=== PATIENT | male | born 1935 | race Caucasian/White ===

== ENCOUNTER 2016-04-11 14:42 | Inpatient (IN) | payer OTHER ==
[~2016-04-11] VITALS: Ht 180.3 cm; Wt 102.0 kg
[~2016-04-11 14:42] MED LIST: ACET-1256 PO; ASPI81TA28 PO; ATRINS NEB; CFT250 PO; CHOL200010 PO; CRG625 PO; CYAN10005 PO; DICL1GEL28 TOP; FINA5TAB PO; FLUT0.15 NAE; FURO-85 PO; GARL400T4 PO; GLIP-171 PO; HYDR-5688 PO; ISOS30TA3 PO; KETO2SHA TOP; LEVA1NEB19 INH; LORA0.5T12 PO; METF-384 PO; OMEG10007 PO; OXGN; PENT100C6 PO; RANI300T2 PO; SAW1CAP11 PO; SENN8.6T15 PO; SERT-234 PO; SIMV20TA2 PO; TAMS0.4C38 PO
[2016-04-11] MEDS ORDERED: SODIUM CHLORIDE 0.9% 1000ML 500 ML IV ONE (15:10)
[2016-04-11] MEDS ORDERED: AZTREONAM IV 2,000 MG in DEXTROSE 5% 100ML 100 ML IV STA (15:16)
--- NOTE | 2016-04-11 15:50 | DIAGNOSTIC IMAGING REPORT ---
CHEST ONE VIEW PORTABLE HISTORY: Sepsis COMPARISON: Chest 11/19/2015. FINDINGS: No pneumothorax. Small bilateral pleural effusions have slightly increased in size. Left-sided pacemaker is again noted. Bibasilar linear densities persist and suggest subsegmental atelectasis. No evidence for pulmonary edema. The heart remains mildly enlarged. No significant change in the 1.5 cm right midlung zone nodule. No new focal lung consolidations. IMPRESSION: 1. Small bilateral pleural effusions have slightly increased in size. 2. Bilateral lower lung zone linear densities persist and favor subsegmental atelectasis or scarring. 3. No significant change in the 1.5 cm right midlung zone nodule. Electronically signed by: Dennis Taveras M.D. 04/11/2016 3:48 PM
[2016-04-11 16:01] LABS: BASO % 0.3 %; BASO ABS # 0.02 K/uL (0-0.2); COMPLETE YES; EOS % 1.4 %; HEMATOCRIT 38.7 % (42-52); IG% 0.3 %; LYMPH % 18.1 %; LYMPH ABS # 1.29 K/uL (1.2-3.4); MEAN CELL VOLUME 91.7 fL (80-100); MEAN CORPUSCULAR HEMOGLOBIN 28.9 pg (25-34); MEAN CORPUSCULAR HGB CONC 31.5 g/dl (32-36); MEAN PLATELET VOLUME 9.4 fL (7.4-10.4); MONO % 9.7 %; NEUT % 70.2 %; PLATELET COUNT 210 K/uL (130-400); RED BLOOD COUNT 4.22 M/uL (4.7-6.1); WHITE BLOOD COUNT 7.13 K/uL (4.8-10.8)
[2016-04-11] MEDS ORDERED: PRS5 PO (16:25)
[2016-04-11] MEDS ORDERED: OMEP20CA9 PO (16:25)
[2016-04-11] MEDS ORDERED: SIMV-151 PO (16:25)
[2016-04-11] MEDS ORDERED: ZLF/100 PO (16:25)
[2016-04-11] MEDS ORDERED: SENNTAB PO (16:25)
[2016-04-11] MEDS ORDERED: ISOS-11 PO (16:25)
[2016-04-11] MEDS ORDERED: CIPR250T3 PO (16:25)
[2016-04-11] MEDS ORDERED: FLM4 PO (16:25)
[2016-04-11] MEDS ORDERED: ATV5X PO (16:25)
[2016-04-11] MEDS ORDERED: CARV6.252 PO (16:38)
[2016-04-11 16:48] LABS: PROTHROMBIN TIME (PATIENT) 10.9 SECONDS (9.0-12.0)
[2016-04-11 16:53] LABS: ALT/SGPT 15 U/L (12-78); BLOOD UREA NITROGEN 16 mg/dl (7-18); BUN/CREATININE RATIO 10.9 (10-20); CALCIUM 8.5 mg/dl (8.5-10.1); CARBON DIOXIDE 30 mmol/L (21-32); CHLORIDE 105 mmol/L (98-107); GLUCOSE 168 mg/dl (70-99); MAGNESIUM 1.7 mg/dl (1.8-2.4); SODIUM 143 mmol/L (136-145)
[2016-04-11 17:03] LABS: ALB/GLOB RATIO 0.9 (0.9-2); ALKALINE PHOSPHATASE 79 U/L (45-117); AST/SGOT 14 U/L (15-37)
[2016-04-11 17:09] LABS: URINE APPEARANCE TURBID (CLEAR); URINE BILIRUBIN NEG (NEG); URINE COLOR YELLOW; URINE EPITHELIAL CELL AUTO >30 /lpf (0-5); URINE NITRITE NEG (NEG); URINE SPECIFIC GRAVITY 1.017 (1.000-1.030); UROBILINOGEN NEG (NEG); ZZURINE CULT IF INDIC CATH YES
[2016-04-11 17:13] LABS: MANUAL MICROSCOPIC REQUIRED? NO; REVIEW REQ? YES
--- NOTE | 2016-04-11 18:12 | DIAGNOSTIC IMAGING REPORT ---
CT OF THE HEAD WITHOUT CONTRAST CLINICAL HISTORY: Confusion. COMPARISON STUDY: Head CT November 19, 2015. CT DOSE: 1474.24 mGy.cm TECHNIQUE: Helical axial images of the head were obtained without IV contrast. Automated exposure control was utilized for the study. FINDINGS: No acute intracranial hemorrhage, midline shift or mass effect is present. Ventricular system is normal. The basilar cisterns are patent. There are no extra-axial collections. Tong-white differentiation is maintained. There are no findings to suggest acute dural sinus thrombosis or acute territorial infarct. There are a small amount of secretions within the right maxillary sinus. There are no significant calvarial abnormalities. There are postsurgical findings within the sinuses. IMPRESSION: No acute intracranial findings. Electronically signed by: Krishan Aguila M.D. 04/11/2016 6:10 PM
--- NOTE | 2016-04-11 18:22 | DIAGNOSTIC IMAGING REPORT ---
CT OF THE ABDOMEN AND PELVIS WITHOUT CONTRAST, STONE PROTOCOL CLINICAL HISTORY: Bilateral flank pain. Hematuria. Urinary tract infection. COMPARISON STUDY: CT of the abdomen and pelvis October 28, 2015. TECHNIQUE: Helical axial images of the abdomen and pelvis were obtained without IV or oral contrast according to renal stone protocol. FINDINGS: Visualized portions of the lower chest demonstrate small bilateral pleural effusions with associated opacities which favor atelectasis. Pacer leads and cardiomegaly are noted. There is no pneumatosis, free air or portal venous gas. Note is made of several left renal calculi that measure up to 6 mm. A 5 mm calculus within lower pole of the right kidney is noted. There are no ureteral calculi. There is mild bilateral perinephric infiltration as well as infiltration within each renal sinus, greater on the left. There is bilateral urothelial thickening which has been shown on prior exams. There is mild dilatation of both ureters and mild left pelvicaliectasis. Moderate wall thickening of the bladder is noted with adjacent infiltration. The bladder suboptimally assessed due to underdistention. Unenhanced images of liver, spleen, adrenal glands and pancreas are normal. The gallbladder surgically absent. There is no evidence for a bowel obstruction. There is sigmoid diverticulosis without evidence for acute diverticulitis. No suspicious osseous lesions are identified within visualized skeletal structures. IMPRESSION: 1. Bilateral nephrolithiasis. No ureteral calculi. Mild dilatation of both ureters and mild left pelvicaliectasis. Bilateral urothelial thickening. The hyperdensity within the collecting systems, left greater than right, could reflect urothelial thickening or a small amount of hemorrhage. These findings are nonspecific and could reflect infection, recently passed stone or an underlying urothelial malignancy. Correlation with urinalysis and urine cytology as well as urologic consultation is recommended although similar findings have been shown on prior exams. 2. Persistent bladder wall thickening adjacent infiltration which has been shown on prior exams. The findings favor cystitis. 3. Small bilateral pleural effusion with associated atelectasis. Electronically signed by: Krishan Aguila M.D. 04/11/2016 6:21 PM
[2016-04-11] MEDS ORDERED: POTA-74 PO (18:30)
[2016-04-11] MEDS ORDERED: ASCO-63 PO (18:30)
[2016-04-11] MEDS ORDERED: ATRINSX NEB (18:30)
--- NOTE | 2016-04-11 18:56 | EMERGENCY ROOM VISIT NOTE ---
History Report prepared by Britt: Genoveva Eng Under the Supervision of: Dr. Anand Baez M.D. First contact with patient: 15:05 Chief Complaint: URINARY SYMPTOMS Stated Complaint: CONFUSION/AMS/WEAKNESS History of Present Illness The patient is a 81 year old male who presents to the Emergency Room via ALS with complaints on persistent AMS starting earlier today. The patient states that he has been recently treated for a urinary infection and has been taking Cipro but he has still been experiencing burning with urination. Then today he started to experience some confusion. The patient denies any fever, vomiting or unilateral weakness of the legs and arms. He states he is also having trouble swallowing and he has a sore throat. The patient states that he has some chest pain occasionally. He states that at night he does wears oxygen. He states that he fell and explains it as he "went out of this planet" and he just fell down. He states from the fall he landed on his back. The patient states he has a history of kidney stones. Source of History: patient History Limited By: AMS Onset: earlier today [employer]ULT [employer] Position: other (global ) Timing: other (persistent ) Associated Symptoms: + sorethroat, + urinary symptoms (burning), + weakness (arms and legs ), No fevers, No vomiting Note: Associated symptoms: trouble swallowing, recent fall Review of Systems See HPI for pertinent positives & negatives. A total of 10 systems reviewed and were otherwise negative. Past Medical & Surgical Medical Problems: (1) Basal cell carcinoma (2) BPH (benign prostatic hyperplasia) (3) CAD (coronary artery disease) (4) Chronic systolic (congestive) heart failure (5) Confusion (6) COPD, severe (7) Depression (8) Diabetes mellitus (9) Dyslipidemia (10) Esophageal stricture (11) GERD (gastroesophageal reflux disease) (12) High degree atrioventricular block (13) Ischemic cardiomyopathy (14) DENISHA (obstructive sleep apnea) (15) Renal artery stenosis (16) UTI (urinary tract infection) Surgical Problems: (1) H/O hand surgery (2) S/P cataract surgery (3) S/P cholecystectomy (4) S/P sinus surgery (5) Status post total knee replacement, right Family History Omitted secondary to age Social History Smoking Status: Former Smoker Alcohol Use: none Marital Status: Housing Status: lives with significant other Occupation Status: retired Current/Historical Medications Scheduled Ascorbic Acid (Vitamin C), 500 MG PO DAILY Aspirin (Aspirin Ec), 81 MG PO DAILY Carvedilol (Coreg), 6.25 MG PO BID Cholecalciferol (Vitamin D), 2,000 INTER.UNIT PO DAILY Ciprofloxacin (Cipro), 250 MG PO Q12 Cyanocobalamin (Vitamin B-12), 1,000 MCG PO DAILY Finasteride (Finasteride), 5 MG PO DAILY Fish Oil ([place]-3), 1 CAP PO BID Glipizide Xl (Glucotrol Xl), 5 MG PO QAM Isosorbide Mononitrate (Isosorbide Mononitrate ER), 30 MG PO QAM Metformin Hcl (Glucophage), 1,000 MG PO BID Omeprazole (Prilosec), 20 MG PO DAILY Oxygen (Oxygen), 2 LITERS NA UD Pentosan Polysulfate Sodium ([place]), 100 MG PO AC [place] ([place] Repens) ([place]), 1,000 MG PO BID Sennosides-Docusate Sodium (Qc Stool Softener Plus [place]), 2 TABS PO HS Sertraline HCl (Sertraline HCl), 100 MG PO HS Simvastatin (Simvastatin), 20 MG PO HS Tamsulosin HCl (Tamsulosin HCl), 0.4 MG PO HS Scheduled PRN Fexofenadine Hcl (Randa), 180 MG PO DAILY PRN for Allergy Symptoms Fluticasone Propionate (Nasal) (Flonase Allergy Relief), 2 SPRAYS [place] DAILY PRN for Allergy Symptoms Furosemide (Lasix), 20 MG PO DAILY PRN for Fluid Accumulation/Weight Gain Ipratropium [place] (Atrovent 0.02% Soln), 2.5 ML NEB QID PRN for Shortness of Breath Levalbuterol (Levalbuterol HCl), 1 VIAL INH TID PRN for Shortness of Breath Lorazepam (Lorazepam), 0.5 MG PO HS PRN for Anxiety/Insomnia Potassium Chloride (Potassium Chloride Er), 10 MEQ PO DAILY PRN for When Taking Lasix Allergies Coded Allergies: Penicillins (Verified Allergy, Mild, RASH, 11/19/15) Clindamycin (Verified Allergy, Unknown, UNKNOWN, 11/19/15) Morphine (Verified Adverse Reaction, Intermediate, mental status change, ) Oxycodone (Verified Adverse Reaction, Mild, CONFUSION, 11/19/15) Physical Exam Vital Signs Date Time Temp Pulse Resp B/P Pulse Ox O2 Delivery O2 Flow Rate FiO2 04/11/16 19:04 81 18 160/78 92 Room Air 04/11/16 17:12 81 18 157/80 94 Nasal Cannula 3.0 04/11/16 16:36 96 Nasal Cannula 04/11/16 14:51 36.7 97 20 145/69 96 Nasal Cannula 3.0 Physical Exam GENERAL: Patient is in no acute distress. HEENT: No acute trauma, normocephalic atraumatic, mucous membranes dry, no nasal congestion, no scleral icterus. NECK: No stridor, no adenopathy, no meningismus, trachea is midline. LUNGS: Diminished breath sounds bilaterally with bilateral rhonchi, no wheezing. HEART: Without murmurs gallops or rubs, regular rate and rhythm. ABDOMEN: Soft, nontender, bowel sounds positive, no hernias, no peritonitis. EXTREMITIES: No cyanosis, mild bilateral pedal edema, full range of motion of all the joints without pain or difficulty, no signs for acute trauma. NEUROLOGIC: Oriented x 3, no acute motor or sensory deficits, no focal weakness. SKIN: No rash, no jaundice, no diaphoresis. GROIN: Uncircumcised, no penile or scrotal cellulitis. Medical Decision & Procedures ER Provider Diagnostic Interpretation: X-ray results as stated below per interpretation by me and the radiologist: CHEST ONE VIEW PORTABLE HISTORY: Sepsis COMPARISON: Chest 11/19/2015. FINDINGS: No pneumothorax. Small bilateral pleural effusions have slightly increased in size. Left-sided pacemaker is again noted. Bibasilar linear densities persist and suggest subsegmental atelectasis. No evidence for pulmonary edema. The heart remains mildly enlarged. No significant change in the 1.5 cm right midlung zone nodule. No new focal lung consolidations. IMPRESSION: 1. Small bilateral pleural effusions have slightly increased in size. 2. Bilateral lower lung zone linear densities persist and favor subsegmental atelectasis or scarring. 3. No significant change in the 1.5 cm right midlung zone nodule. Electronically signed by: Dennis Taveras M.D. 04/11/2016 3:[address] results as stated below per my review and radiologist interpretation: CT OF THE ABDOMEN AND PELVIS WITHOUT CONTRAST, STONE PROTOCOL CLINICAL HISTORY: Bilateral flank pain. Hematuria. Urinary tract infection. COMPARISON STUDY: CT of the abdomen and pelvis October 28, 2015. TECHNIQUE: Helical axial images of the abdomen and pelvis were obtained without IV or oral contrast according to renal stone protocol. FINDINGS: Visualized portions of the lower chest demonstrate small bilateral pleural effusions with associated opacities which favor atelectasis. Pacer leads and cardiomegaly are noted. There is no pneumatosis, free air or portal venous gas. Note is made of several left renal calculi that measure up to 6 mm. A 5 mm calculus within lower pole of the right kidney is noted. There are no ureteral calculi. There is mild bilateral perinephric infiltration as well as infiltration within each renal sinus, greater on the left. There is bilateral urothelial thickening which has been shown on prior exams. There is mild dilatation of both ureters and mild left pelvicaliectasis. Moderate wall thickening of the bladder is noted with adjacent infiltration. The bladder suboptimally assessed due to underdistention. Unenhanced images of liver, spleen, adrenal glands and pancreas are normal. The gallbladder surgically absent. There is no evidence for a bowel obstruction. There is sigmoid diverticulosis without evidence for acute diverticulitis. No suspicious osseous lesions are identified within visualized skeletal structures. IMPRESSION: 1. Bilateral nephrolithiasis. No ureteral calculi. Mild dilatation of both ureters and mild left pelvicaliectasis. Bilateral urothelial thickening. The hyperdensity within the collecting systems, left greater than right, could reflect urothelial thickening or a small amount of hemorrhage. These findings are nonspecific and could reflect infection, recently passed stone or an underlying urothelial malignancy. Correlation with urinalysis and urine cytology as well as urologic consultation is recommended although similar findings have been shown on prior exams. 2. Persistent bladder wall thickening adjacent infiltration which has been shown on prior exams. The findings favor cystitis. 3. Small bilateral pleural effusion with associated atelectasis. Electronically signed by: Krishan Aguila M.D. 04/11/2016 6:[address] OF THE HEAD WITHOUT CONTRAST CLINICAL HISTORY: Confusion. COMPARISON STUDY: Head CT November 19, 2015. CT DOSE: 1474.24 mGy.cm TECHNIQUE: Helical axial images of the head were obtained without IV contrast. Automated exposure control was utilized for the study. FINDINGS: No acute intracranial hemorrhage, midline shift or mass effect is present. Ventricular system is normal. The basilar cisterns are patent. There are no extra-axial collections. Tong-white differentiation is maintained. There are no findings to suggest acute dural sinus thrombosis or acute territorial infarct. There are a small amount of secretions within the right maxillary sinus. There are no significant calvarial abnormalities. There are postsurgical findings within the sinuses. IMPRESSION: No acute intracranial findings. Electronically signed by: Krishan Aguila M.D. 04/11/2016 6:10 PM Laboratory Results 04/11/16 15:48 Red Blood Count 4.22, Mean Corpuscular Volume 91.7, Mean Corpuscular Hemoglobin 28.9, Mean Corpuscular Hemoglobin Concent 31.5, Mean Platelet Volume 9.4, Neutrophils (%) (Auto) 70.2, Lymphocytes (%) (Auto) 18.1, Monocytes (%) (Auto) 9.7, Eosinophils (%) (Auto) 1.4, Basophils (%) (Auto) 0.3, Neutrophils # (Auto) 5.01, Lymphocytes # (Auto) 1.29, Monocytes # (Auto) 0.69, Eosinophils # (Auto) 0.10, Basophils # (Auto) 0.02 04/11/16 16:12 Test 04/11/16 15:48 04/11/16 16:12 04/11/16 16:20 04/11/16 16:45 White Blood Count 7.13 K/uL (4.8-10.8) Red Blood Count 4.22 M/uL (4.7-6.1) Hemoglobin 12.2 g/dL (14.0-18.0) Hematocrit 38.7 % (42-52) Mean Corpuscular Volume 91.7 fL (80-100) Mean Corpuscular Hemoglobin 28.9 pg (25-34) Mean Corpuscular Hemoglobin Concent 31.5 g/dl (32-36) Platelet Count 210 K/uL (130-400) Mean Platelet Volume 9.4 fL (7.4-10.4) Neutrophils (%) (Auto) 70.2 % Lymphocytes (%) (Auto) 18.1 % Monocytes (%) (Auto) 9.7 % Eosinophils (%) (Auto) 1.4 % Basophils (%) (Auto) 0.3 % Neutrophils # (Auto) 5.01 K/uL (1.4-6.5) Lymphocytes # (Auto) 1.29 K/uL (1.2-3.4) Monocytes # (Auto) 0.69 K/uL (0.11-0.59) Eosinophils # (Auto) 0.10 K/uL (0-0.5) Basophils # (Auto) 0.02 K/uL (0-0.2) RDW Standard Deviation 45.9 fL (36.4-46.3) RDW Coefficient of Variation 13.7 % (11.5-14.5) Immature Granulocyte % (Auto) 0.3 % Immature Granulocyte # (Auto) 0.02 K/uL (0.00-0.02) Prothrombin Time 10.9 SECONDS (9.0-12.0) Prothromb Time International Ratio 1.0 (0.9-1.1) Activated Partial Thromboplast Time 26.8 SECONDS (21.0-31.0) Partial Thromboplastin Ratio 1.0 Anion Gap 8.0 mmol/L (3-11) Est Creatinine Clear Calc Drug Dose 46.4 ml/min Estimated GFR () 49.5 Estimated GFR (Non- 42.7 BUN/Creatinine Ratio 10.9 (10-20) Calcium Level 8.5 mg/dl (8.5-10.1) Magnesium Level 1.7 mg/dl (1.8-2.4) Total Bilirubin 0.2 mg/dl (0.2-1) Aspartate Amino Transf (AST/SGOT) 14 U/L (15-37) Alanine Aminotransferase (ALT/SGPT) 15 U/L (12-78) Alkaline Phosphatase 79 U/L (45-117) Ammonia 32.0 umol/L (11-32) Troponin I < 0.015 ng/ml (0-0.045) Total Protein 6.6 gm/dl (6.4-8.2) Albumin 3.1 gm/dl (3.4-5.0) Globulin 3.5 gm/dl (2.5-4.0) Albumin/Globulin Ratio 0.9 (0.9-2) Thyroid Stimulating Hormone (TSH) 1.740 uIu/ml (0.300-4.500) Bedside Lactic Acid Venous 1.55 mmol/L (0.90-1.70) Urine Color YELLOW Urine Appearance TURBID (CLEAR) Urine pH 6.0 (4.5-7.5) Urine Specific [place] 1.017 (1.000-1.030) Urine Protein 3+ (NEG) Urine Glucose (UA) NEG (NEG) Urine Ketones NEG (NEG) Urine Occult Blood 2+ (NEG) Urine Nitrite NEG (NEG) Urine Bilirubin NEG (NEG) Urine Urobilinogen NEG (NEG) Urine Leukocyte Esterase LARGE (NEG) Urine WBC (Auto) >30 /hpf (0-5) Urine RBC (Auto) 10-30 /hpf (0-4) Urine Hyaline Casts (Auto) 5-10 /lpf (0-5) Urine Epithelial Cells (Auto) >30 /lpf (0-5) Urine Bacteria (Auto) NEG (NEG) Urine Pathogenic Casts /lpf (0) Urine Yeast (Auto) (NONE PRSENT) Laboratory results reviewed by me. Medications Administered Medications (Trade) Dose Ordered Sig/Tonia Route Start Time Stop Time Status Last Admin Dose Admin Sodium Chloride 500 ml @ 999 mls/hr Q31M ONCE IV 04/11/16 15:10 04/11/16 15:40 DC 04/11/16 17:09 999 MLS/HR Aztreonam/Dextrose (Azactam IV/D5 100ml) 110 ml @ 100 mls/hr NOW STAT IV 04/11/16 15:16 04/11/16 16:21 DC 04/11/16 17:08 100 MLS/HR ECG Indication: altered mental status Rate (beats per minute): 80 Rhythm: other (Ventricular pacemaker) Findings: no acute ischemic change, no ectopy ED Course 1507: The patient was evaluated in room C9. A complete history and physical exam was performed. 1510: Ordered Sodium Chloride 500 ml @ 999 mls/hr IV. 1516: Ordered Aztreonam 2,000 mg/Dextrose 110 ml @ 100 ml/hr IV. 1825: I revaluated the patient and talked with both him and his . He was resting comfortably and he agreed to stay for further evaluation. 1835: I discussed the case with Dr. Devante Terry Hospitalist. He agreed to evaluate the patient for further management and care. Medical Decision The patient is a 81 year old male who presents to the ED with complaints of change in MS. Differential diagnoses considered include failed outpatient treatment, sepsis, UTI, pneumonia, intracranial bleed, electrolyte imbalance, renal failure, liver failure, urinary obstruction, cardiac ischemia. There is no leukocytosis or worrisome anemia. No significant electrolyte abnormality, kidney failure or hepatitis. Lactic acid level is not elevated making severe sepsis less likely. Urinalysis does show evidence for infection. Urine culture is pending. Blood cultures are pending. Chest x-ray shows congestion of both lower lungs consistent with possible atelectasis or early infiltrate. Brain CT shows no acute bleed or mass effect. EKG shows a paced rhythm, no acute ischemia. Cardiac enzyme testing 1 is not suggestive of acute cardiac injury. Abdominal and pelvis CT shows inflammation to the urinary system in general, there was no true urinary obstruction. The patient appeared to be in a euthyroid state. Ammonia level was not elevated. The patient received IV saline, he received IV aztreonam for antibiotic coverage. The patient seems to be doing better than earlier, he has not shown evidence for confusion or delirium here in the ED. He is cooperative, his vital signs are stable. I do think admission/observation is warranted. He is failing outpatient treatment for a urinary tract infection. Today, he was weak, he was confused and actually fell. I spoke to the patient and his . I spoke to the on- call hospitalist. Case management has been involved. Consults Time Called: 1829 Consulting Physician: Dr. Devante Terry Hospitalist Returned Call: [phone] I discussed the case with Dr. Devante Treadwell. He agreed to evaluate the patient for further management and care. Impression Primary Impression: Change in mental status Additional Impressions: Dehydration, UTI (urinary tract infection), Failure of outpatient treatment Scribe Attestation The scribe's documentation has been prepared under my direction and personally reviewed by me in its entirety. I confirm that the note above accurately reflects all work, treatment, procedures, and medical decision making performed by me. Departure Information Dispostion Being Evaluated By Hospitalist Portia Barrett M.D. (PCP)
[2016-04-11] MEDS ORDERED: ONDANSETRON INJ 2 MG/ML 2 ML VIAL IV PRN (20:00)
[2016-04-11] MEDS ORDERED: CHOL1000 PO (20:03)
[2016-04-11] MEDS ORDERED: HYDR-5688 PO (20:03)
[2016-04-11] MEDS ORDERED: HYDROCODONE/ACETAMOPHEN 5/325MG TAB PO PRN (20:15)
[2016-04-11] MEDS ORDERED: GLUCOSE 10 TABS/TUBE PO PRN (20:15)
[2016-04-11] MEDS ORDERED: GLUCOSE 40% GEL 15 GM TUBE PO PRN (20:15)
[2016-04-11] MEDS ORDERED: IPRATROPIUM BROMIDE NEB SOLN 0.02% 2.5 ML VIAL INH PRN (20:15)
[2016-04-11] MEDS ORDERED: FUROSEMIDE 20 MG TAB PO PRN (20:15)
[2016-04-11] MEDS ORDERED: XPNINS125 INH (20:15)
[2016-04-11] MEDS ORDERED: POTASSIUM CHLORIDE 10 MEQ TABCR PO PRN (20:15)
[2016-04-11] MEDS ORDERED: DEXTROSE 50% 50 ML SYR IV PRN (20:15)
[2016-04-11] MEDS ORDERED: LEVALBUTEROL 1.25MG/3ML NEB INH PRN (20:15)
[2016-04-11] MEDS ORDERED: GLUCAGON FOR INJ 1 MG VIAL SQ PRN (20:15)
[2016-04-11] MEDS ORDERED: FLUTICASONE PROPIONATE NA SPR 16 GM BTL NAE PRN (20:15)
[2016-04-11] MEDS ORDERED: FEXOFENADINE HCL 180 MG TAB PO PRN (20:15)
[2016-04-11] MEDS ORDERED: DICLOFENAC SOD 1% GEL 100 GM TUBE EXT PRN (20:30)
[2016-04-11 20:45] VITALS: BP 194/81; PULSE 91; TEMP 36.6; O2SAT 95; Ht 180.3 cm; Wt 102.0 kg
[2016-04-11] MEDS ORDERED: AZTREONAM CONSULT ACTIVE PRN ×2 (20:53)
[2016-04-11] MEDS ORDERED: SAW PALMETTO 1000 MG PO SCH (21:00)
--- NOTE | 2016-04-11 21:18 | History and Physical ---
History & Physical Date & Time of Service: Apr 11, 2016 at 20:22 Chief Complaint: Confusion/Ams/Weakness Primary Care Physician: Portia Candelaria M.D. 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 Pt follows with Dr. Thorne for urology and also has future appointment with a [facility] urologist. Patient's cooperation is limited but at bedside assists with history. Patient recently developed worsening of his chronic dysuria, frequency, urgency , incontinence. He was seen on 04/08 by Angela CASTILLO for these symptoms as well as scrotal pain which is now resolved. Scrotal US showed large right sided hydrocele. Patient had a UA positive to 3+ blood, 2+ protein, 3+ leuk esterase. He was started on Cipro for possible UTI. Urine culture from 04/08 grew mixed ashleigh. He has been taking Cipro without improvement. He currently c/o urethral and suprapubic pain. Patient has felt subjectively warm and cold at home. His temp was 99.4 in clinic. also notes that he has been generally weak, more anxious and irritable, and more forgetful than usual. Then today she was helping him get dressed and he started walking forward and lost his balance falling backwards onto his buttocks, scraping his back on the dresser. Pt denies dizziness, LOC, or head trauma. He typically ambulates with a cane. He reports chronic BAZAN in frontal and occipital regions for >1 year. states GUTIERREZ worsened about 1 month ago and patient had PFT's ordered by Kishan Avila PA-C , oxygen was increased to 3L HS and PRN activity, and patient plans for pulmonary rehab. Chronic productive cough is at baseline. He reports difficulty swallowing food and liquids described as "throat feels tight" when food goes down. No overt aspiration episodes. He had an esophageal stricture dilated in the past. He denies focal weakness, chest pain, dyspnea at rest, nausea, vomiting, diarrhea, gross hematuria, penile discharge, edema, back pain. Past Medical/Surgical History Medical Problems: (1) Basal cell carcinoma Status: Chronic (2) BPH (benign prostatic hyperplasia) Status: Chronic (3) CAD (coronary artery disease) Permanent Comment: s/p mid LAD and left circumflex stents in 2007 Status: Chronic (4) Chronic systolic (congestive) heart failure Permanent Comment: echo 08/2014 - EF 40-45%, grade I diastolic dysfunction Status: Chronic (5) COPD, severe Status: Chronic (6) Depression Status: Chronic (7) Diabetes mellitus Permanent Comment: type 2 Status: Chronic (8) Dyslipidemia Status: Chronic (9) Esophageal stricture Permanent Comment: s/p dilation Status: Chronic (10) GERD (gastroesophageal reflux disease) Status: Chronic (11) High degree atrioventricular block Permanent Comment: s/p pacemaker with upgrade to biventricular device in 2014 Status: Resolved (12) Ischemic cardiomyopathy Status: Chronic (13) DENISHA (obstructive sleep apnea) Status: Chronic (14) Renal artery stenosis Status: Chronic Surgical Problems: (1) H/O hand surgery Status: Resolved (2) S/P cataract surgery Status: Resolved (3) S/P cholecystectomy Status: Resolved (4) S/P coronary artery stent placement Status: Chronic (5) S/P sinus surgery Status: Resolved (6) Status post total knee replacement, right Status: Resolved Family History Cardiac disorder FATHER BROTHER SISTER Diabetes mellitus BROTHER SISTER Hypertension FATHER SISTER Social History Smoking Status: Former Smoker Alcohol Use: none Marital Status: Housing status: lives with family Occupational Status: retired Immunizations History of Influenza Vaccine: Yes Influenza Vaccine Date: Feb 09, 2015 History of Tetanus Vaccine?: Yes Tetanus Immunization Date: Jan 30, 2008 History of Pneumococcal: Yes Pneumococcal Date: Sep 16, 2014 Multi-Drug Resistant Organisms History of MDRO: No Allergies Coded Allergies: Penicillins (Verified Allergy, Mild, RASH, 11/19/15) Clindamycin (Verified Allergy, Unknown, UNKNOWN, 11/19/15) Morphine (Verified Adverse Reaction, Intermediate, mental status change, ) Oxycodone (Verified Adverse Reaction, Mild, CONFUSION, 11/19/15) Home Medications Scheduled Ascorbic Acid (Vitamin C), 500 MG PO DAILY Aspirin (Aspirin Ec), 81 MG PO DAILY Carvedilol (Coreg), 6.25 MG PO BID Cholecalciferol (Vitamin D3), 1 TAB PO DAILY Ciprofloxacin (Cipro), 250 MG PO Q12 Cyanocobalamin (Vitamin B-12), 1,000 MCG PO DAILY Finasteride (Finasteride), 5 MG PO DAILY Fish Oil ([place]-3), 1 CAP PO BID Glipizide Xl (Glucotrol Xl), 5 MG PO QAM Isosorbide Mononitrate (Isosorbide Mononitrate ER), 30 MG PO QAM Metformin Hcl (Glucophage), 1,000 MG PO BID Omeprazole (Prilosec), 20 MG PO DAILY Oxygen (Oxygen), 3 LITERS NA UD Pentosan Polysulfate Sodium (Elmiron), 100 MG PO BID [place] ([place]renoa Repens) (S[place]), 1,000 MG PO BID Sennosides-Docusate Sodium (Qc Stool Softener Plus La), 2 TABS PO HS Sertraline HCl (Sertraline HCl), 100 MG PO HS Simvastatin (Simvastatin), 20 MG PO HS Tamsulosin HCl (Tamsulosin HCl), 0.4 MG PO HS Scheduled PRN Fexofenadine Hcl (Randa), 180 MG PO DAILY PRN for Allergy Symptoms Fluticasone Propionate (Nasal) (Flonase Allergy Relief), 2 SPRAYS BR[place]TON DAILY PRN for Allergy Symptoms Furosemide (Lasix), 20 MG PO DAILY PRN for Fluid Accumulation/Weight Gain Hydrocodone/Acetaminophen 5MG/325MG ([place] 5MG/325MG), 1 TABLET PO Q6H PRN for Pain Ipratropium [place] (Atrovent 0.02% Soln), 2.5 ML NEB QID PRN for Shortness of Breath Levalbuterol (Levalbuterol HCl), 1 VIAL INH QID PRN for Shortness of Breath Lorazepam (Lorazepam), 0.5 MG PO HS PRN for Anxiety/Insomnia Potassium Chloride (Potassium Chloride Er), 10 MEQ PO DAILY PRN for When Taking Lasix Review of Systems Constitutional: + problem reported (subjectively warm and cold. temp 99.4 in clinic.), + weakness (generalized), + weight loss (4 lb in past week) Eyes: + problem reported (chronic occasional spots before his eyes) ENT: + nasal symptoms (nasal congestion) Respiratory: + cough, + dyspnea on exertion, + sputum (no change from baseline) , No dyspnea at rest Cardiovascular: No chest pain, No edema Abdomen: + pain (suprapubic pain), No diarrhea, No nausea, No vomiting Musculoskeletal: No problem reported (no back pain) Genitourinary - Male: + dysuria, + urinary frequency, + urinary incontinence, + urinary urgency, No hematuria, No penile discharge Neurologic: No weakness (no focal weakness) Psychiatric: + anxiety Physical Exam Vital Signs Date Time Temp Pulse Resp B/P Pulse Ox O2 Delivery O2 Flow Rate FiO2 04/11/16 20:18 82 18 165/79 93 04/11/16 19:58 82 18 165/79 93 Room Air 04/11/16 19:04 81 18 160/78 92 Room Air 04/11/16 17:12 81 18 157/80 94 Nasal Cannula 3.0 04/11/16 16:36 96 Nasal Cannula 04/11/16 14:51 36.7 97 20 145/69 96 Nasal Cannula 3.0 General Appearance: WD/WN, + pertinent finding (mildly agitated 81 year old male, partially cooperative with history and exam) Head: normocephalic, atraumatic Eyes: normal inspection, PERRL, EOMI ENT: pharynx normal, + pertinent finding (hard of hearing) Neck: supple, trachea midline Respiratory/Chest: + decreased breath sounds, + pertinent finding (no wheezing , crackles, or rhonchi) Cardiovascular: regular rate, rhythm, no murmur, + pertinent finding (DP pulses 2+) Abdomen/GI: normal bowel sounds, soft, + pertinent finding (suprapubic tenderness) Genitourinary - Male: normal male genitalia, normal phallus, normal testicles Extremities/Musculoskelatal: no calf tenderness, normal capillary refill, no pedal edema 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, no motor/sensory deficits, alert, oriented x 3, + pertinent finding (mildly agitated) Skin: normal color, warm/dry Diagnostics Laboratory Results Results Past 24 Hours Test 04/11/16 15:48 04/11/16 16:12 04/11/16 16:20 04/11/16 16:45 Range/Units White Blood Count 7.13 4.8-10.8 K/uL Red Blood Count 4.22 4.7-6.1 M/uL Hemoglobin 12.2 14.0-18.0 g/dL Hematocrit 38.7 42-52 % Mean Corpuscular Volume 91.7 80-100 fL Mean Corpuscular Hemoglobin 28.9 25-34 pg Mean Corpuscular Hemoglobin Concent 31.5 32-36 g/dl Platelet Count 210 130-400 K/uL Mean Platelet Volume 9.4 7.4-10.4 fL Neutrophils (%) (Auto) 70.2 % Lymphocytes (%) (Auto) 18.1 % Monocytes (%) (Auto) 9.7 % Eosinophils (%) (Auto) 1.4 % Basophils (%) (Auto) 0.3 % Neutrophils # (Auto) 5.01 1.4-6.5 K/uL Lymphocytes # (Auto) 1.29 1.2-3.4 K/uL Monocytes # (Auto) 0.69 0.11-0.59 K/uL Eosinophils # (Auto) 0.10 0-0.5 K/uL Basophils # (Auto) 0.02 0-0.2 K/uL RDW Standard Deviation 45.9 36.4-46.3 fL RDW Coefficient of Variation 13.7 11.5-14.5 % Immature Granulocyte % (Auto) 0.3 % Immature Granulocyte # (Auto) 0.02 0.00-0.02 K/uL Prothrombin Time 10.9 9.0-12.0 SECONDS Prothromb Time International Ratio 1.0 0.9-1.1 Activated Partial Thromboplast Time 26.8 21.0-31.0 SECONDS Partial Thromboplastin Ratio 1.0 Sodium Level 143 136-145 mmol/L Potassium Level 4.0 3.5-5.1 mmol/L Chloride Level 105 98-107 mmol/L Carbon Dioxide Level 30 21-32 mmol/L Anion Gap 8.0 3-11 mmol/L Blood Urea Nitrogen 16 7-18 mg/dl Creatinine 1.50 0.60-1.40 mg/dl Est Creatinine Clear Calc Drug Dose 46.4 ml/min Estimated GFR () 49.5 Estimated GFR (Non- 42.7 BUN/Creatinine Ratio 10.9 10-20 Random Glucose 168 70-99 mg/dl Calcium Level 8.5 8.5-10.1 mg/dl Magnesium Level 1.7 1.8-2.4 mg/dl Total Bilirubin 0.2 0.2-1 mg/dl Aspartate Amino Transf (AST/SGOT) 14 15-37 U/L Alanine Aminotransferase (ALT/SGPT) 15 12-78 U/L Alkaline Phosphatase 79 45-117 U/L Ammonia 32.0 11-32 umol/L Troponin I < 0.015 0-0.045 ng/ml Total Protein 6.6 6.4-8.2 gm/dl Albumin 3.1 3.4-5.0 gm/dl Globulin 3.5 2.5-4.0 gm/dl Albumin/Globulin Ratio 0.9 0.9-2 Thyroid Stimulating Hormone (TSH) 1.740 0.300-4.500 uIu/ml Bedside Lactic Acid Venous 1.55 0.90-1.70 mmol/L Urine Color YELLOW Urine Appearance TURBID CLEAR Urine pH 6.0 4.5-7.5 Urine Specific [place] 1.017 1.000-1.030 Urine Protein 3+ NEG Urine Glucose (UA) NEG NEG Urine Ketones NEG NEG Urine Occult Blood 2+ NEG Urine Nitrite NEG NEG Urine Bilirubin NEG NEG Urine Urobilinogen NEG NEG Urine Leukocyte Esterase LARGE NEG Urine WBC (Auto) >30 0-5 /hpf Urine RBC (Auto) 10-30 0-4 /hpf Urine Hyaline Casts (Auto) 5-10 0-5 /lpf Urine Epithelial Cells (Auto) >30 0-5 /lpf Urine Bacteria (Auto) NEG NEG Urine Pathogenic Casts 0 /lpf Urine Yeast (Auto) NONE PRSENT Microbiology Results 04/11/16 Blood Culture, Received Pending 04/11/16 Blood Culture, Received Pending 04/11/16 Urine Culture, Received Pending Diagnostic Radiology CT OF THE HEAD WITHOUT CONTRAST CLINICAL HISTORY: Confusion. COMPARISON STUDY: Head CT November 19, 2015. CT DOSE: 1474.24 mGy.cm TECHNIQUE: Helical axial images of the head were obtained without IV contrast. Automated exposure control was utilized for the study. FINDINGS: No acute intracranial hemorrhage, midline shift or mass effect is present. Ventricular system is normal. The basilar cisterns are patent. There are no extra-axial collections. Tong-white differentiation is maintained. There are no findings to suggest acute dural sinus thrombosis or acute territorial infarct. There are a small amount of secretions within the right maxillary sinus. There are no significant calvarial abnormalities. There are postsurgical findings within the sinuses. IMPRESSION: No acute intracranial findings. CHEST ONE VIEW PORTABLE HISTORY: Sepsis COMPARISON: Chest 11/19/2015. FINDINGS: No pneumothorax. Small bilateral pleural effusions have slightly increased in size. Left-sided pacemaker is again noted. Bibasilar linear densities persist and suggest subsegmental atelectasis. No evidence for pulmonary edema. The heart remains mildly enlarged. No significant change in the 1.5 cm right midlung zone nodule. No new focal lung consolidations. IMPRESSION: 1. Small bilateral pleural effusions have slightly increased in size. 2. Bilateral lower lung zone linear densities persist and favor subsegmental atelectasis or scarring. 3. No significant change in the 1.5 cm right midlung zone nodule. CT OF THE ABDOMEN AND PELVIS WITHOUT CONTRAST, STONE PROTOCOL CLINICAL HISTORY: Bilateral flank pain. Hematuria. Urinary tract infection. COMPARISON STUDY: CT of the abdomen and pelvis October 28, 2015. TECHNIQUE: Helical axial images of the abdomen and pelvis were obtained without IV or oral contrast according to renal stone protocol. FINDINGS: Visualized portions of the lower chest demonstrate small bilateral pleural effusions with associated opacities which favor atelectasis. Pacer leads and cardiomegaly are noted. There is no pneumatosis, free air or portal venous gas. Note is made of several left renal calculi that measure up to 6 mm. A 5 mm calculus within lower pole of the right kidney is noted. There are no ureteral calculi. There is mild bilateral perinephric infiltration as well as infiltration within each renal sinus, greater on the left. There is bilateral urothelial thickening which has been shown on prior exams. There is mild dilatation of both ureters and mild left pelvicaliectasis. Moderate wall thickening of the bladder is noted with adjacent infiltration. The bladder suboptimally assessed due to underdistention. Unenhanced images of liver, spleen, adrenal glands and pancreas are normal. The gallbladder surgically absent. There is no evidence for a bowel obstruction. There is sigmoid diverticulosis without evidence for acute diverticulitis. No suspicious osseous lesions are identified within visualized skeletal structures. IMPRESSION: 1. Bilateral nephrolithiasis. No ureteral calculi. Mild dilatation of both ureters and mild left pelvicaliectasis. Bilateral urothelial thickening. The hyperdensity within the collecting systems, left greater than right, could reflect urothelial thickening or a small amount of hemorrhage. These findings are nonspecific and could reflect infection, recently passed stone or an underlying urothelial malignancy. Correlation with urinalysis and urine cytology as well as urologic consultation is recommended although similar findings have been shown on prior exams. 2. Persistent bladder wall thickening adjacent infiltration which has been shown on prior exams. The findings favor cystitis. 3. Small bilateral pleural effusion with associated atelectasis. EKG ventricular paced rhythm, 80 bpm, prolonged QT, qtc =489 Impression Assessment and Plan URINARY TRACT INFECTION Patient with underlying BPH, chronic urinary symptoms on Elmiron Failed outpatient treatment with Cipro Urine culture 04/08 grew mixed ashleigh UA today significant for 2+ occult blood, large leukocyte esterase, WBC >30,000 , RBC 10-30, 5-10 hyaline casts, >30 epithelial cells Afebrile; no leukocytosis CT a/p- "1. Bilateral nephrolithiasis. No ureteral calculi. Mild dilatation of both ureters and mild left pelvicaliectasis. Bilateral urothelial thickening. The hyperdensity within the collecting systems, left greater than right, could reflect urothelial thickening or a small amount of hemorrhage. These findings are nonspecific and could reflect infection, recently passed stone or an underlying urothelial malignancy. Correlation with urinalysis and urine cytology as well as urologic consultation is recommended although similar findings have been shown on prior exams. 2. Persistent bladder wall thickening adjacent infiltration which has been shown on prior exams. The findings favor cystitis. 3. Small bilateral pleural effusion with associated atelectasis." Received dose of Aztreonam in ER Urine and blood cultures pending Continue empiric Aztreonam Patient known to Dr. Thorne and has future appointment with [facility] urology; consider urology consult ALTERED MENTAL STATUS Presents with increased irritability and forgetfulness Likely metabolic encephalopathy due to UTI CT head- no acute findings No focal deficits on exam GENERALIZED WEAKNESS/ MECHANICAL FALL Likely secondary to UTI PT and OT evaluations DYSPHAGIA Seems to be chronic; has underlying stricture which was dilated in the past Will need GI follow up as outpatient Aspiration precautions ordered COPD Not in acute exacerbation Continue home nebs On chronic supplemental O2 HS and PRN activity CKD STAGE III Cr is 1.5 which is stable from baseline Monitor renal function Avoid nephrotoxins when able HYPERTENSION BP elevated up to 160s in ER, likely from anxiety Continue carvedilol and isosorbide Monitor CAD S/P STENTING Stable, no anginal symptoms Continue aspirin, statin, beta miko, Imdur CHRONIC SYSTOLIC HEART FAILURE Recent EF 50-54% on recent echo 03/01/2016; prior EF 45% Appears euvolemic On PRN Lasix at home- hold for now 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 Patient seen in collaboration with Dr. Low. Please see his addendum. VTE Prophylaxis VTE Risk Assessment Done? Y/N: Yes Risk Level: Moderate Note ATTENDING ADDENDUM Record reviewed. Patient interviewed and examined. Care coordinated with Carol Chakraborty PA-C. Please refer to her documentation for patient's history. Briefly, 81 yo male recently started on ciprofloxacin for suspected UTI ( although outpatient urine culture subsequently grew mixed ashleigh). Experiencing persistent urinary urgency and suprapubic discomfort without significant dysuria or gross hematuria. noted that he has seemed somewhat confused and forgetful over past few days. This morning, he had difficulty getting dressed and fell while trying to get his pants on. No significant injuries from the fall. EXAM: General- no acute distress VS- as noted HEENT- PERRL, EOMI, anicteric Neck- no JVD Lungs- clear Heart- RRR, no murmur or gallop appreciated Abdomen- + BS, soft, no palpable masses; bilateral tenderness without rebound or guarding Extremities- no pretibial edema or calf tenderness Neuro- alert, somewhat confused DATA: WBC 7130. Creatinine 1.5. Other lab studies as noted. EKG performed at 17:01 reviewed and demonstrated atrial rhythm at 80/min with ventricular pacing. Chest x-ray: IMPRESSION: 1. Small bilateral pleural effusions have slightly increased in size. 2. Bilateral lower lung zone linear densities persist and favor subsegmental atelectasis or scarring. 3. No significant change in the 1.5 cm right midlung zone nodule. Electronically signed by: Dennis Taveras M.D. 04/11/2016 3:[address] head: IMPRESSION: No acute intracranial findings. Electronically signed by: Krishan Aguila M.D. 04/11/2016 6:[address] abdomen + pelvis: IMPRESSION: 1. Bilateral nephrolithiasis. No ureteral calculi. Mild dilatation of both ureters and mild left pelvicaliectasis. Bilateral urothelial thickening. The hyperdensity within the collecting systems, left greater than right, could reflect urothelial thickening or a small amount of hemorrhage. These findings are nonspecific and could reflect infection, recently passed stone or an underlying urothelial malignancy. Correlation with urinalysis and urine cytology as well as urologic consultation is recommended although similar findings have been shown on prior exams. 2. Persistent bladder wall thickening adjacent infiltration which has been shown on prior exams. The findings favor cystitis. 3. Small bilateral pleural effusion with associated atelectasis. Electronically signed by: Krishan Aguila M.D. 04/11/2016 6:21 PM ASSESSMENT AND PLAN: Recurrent urinary symptoms. Placed on ciprofloxacin for apparent recurrent UTI, but outpatient urine culture grew mixed ashleigh. Now with mild confusion, possibly from ciprofloxacin. No fever or leukocytosis. UA shows leukocyte esterase, WBC's, RBC's. CT findings as noted above. Blood and urine cultures obtained; started on IV aztreonam. Consult Urology re: recurrent symptoms and CT findings. Please refer to EDUAR Chakraborty's documentation for discussion of other issues. Christo Low MD . Additional Copies To Portia Candelaria M.D.
[2016-04-11] MEDS: CARVEDILOL 6.25 MG TAB PO SCH (22:42)
[2016-04-11] MEDS: TAMSULOSIN HCL 0.4 MG CAP PO SCH (22:43)
[2016-04-11] MEDS: PENTOSAN POLYSULFATE SODIUM 100 MG CAP PO SCH (22:43)
[2016-04-11] MEDS: OMEGA-3 (PURIFIED FISH OIL) 1 GM CAP PO SCH (22:44)
[2016-04-11] MEDS: SIMVASTATIN 20 MG TAB PO SCH (22:45)
[2016-04-11] MEDS: DOCUSATE SODIUM/SENNA 50/8.6MG TAB PO SCH (22:45)
[2016-04-11] MEDS: SERTRALINE HCL 100 MG TAB PO SCH (22:46)
[2016-04-11] MEDS: INSULIN ASPART 100 UNITS/ML 3 ML PEN SC SCH (22:51)
[2016-04-11] MEDS ORDERED: FEXO1TAB46 PO (23:21)
[2016-04-11] MEDS: ACETAMINOPHEN 325 MG TAB PO PRN (23:34)
[2016-04-12] VITALS (7 sets, daily range): BP systolic 138–213; BP diastolic 69–101; PULSE 74–100; TEMP 36.3–37; O2SAT 93–98
[2016-04-12] MEDS: AZTREONAM IV 1,000 MG in DEXTROSE 5% 100ML IV SCH ×3 (00:48→17:20)
[2016-04-12 05:37] LABS: HEMATOCRIT 36.2 % (42-52); MEAN CELL VOLUME 91.2 fL (80-100); MEAN CORPUSCULAR HGB CONC 31.8 g/dl (32-36); PLATELET COUNT 186 K/uL (130-400); RED BLOOD COUNT 3.97 M/uL (4.7-6.1)
[2016-04-12 06:04] LABS: BUN/CREATININE RATIO 11.3 (10-20); CREATININE 1.5 mg/dl (0.60-1.40); MAGNESIUM 1.9 mg/dl (1.8-2.4); POTASSIUM 3.8 mmol/L (3.5-5.1)
[2016-04-12 06:21] LABS: CALCIUM 8.6 mg/dl (8.5-10.1)
[2016-04-12] MEDS: CHOLECALCIFEROL 1000 INTER.UNIT TAB PO SCH (07:40)
[2016-04-12] MEDS: ASCORBIC ACID 500 MG TAB PO SCH (07:41)
[2016-04-12] MEDS: CYANOCOBALAMIN 500 MCG TAB (VIT B-12) PO SCH (07:41)
[2016-04-12] MEDS: PANTOprazole SOD 40 MG TAB PO SCH (07:41)
[2016-04-12] MEDS: ASPIRIN 81 MG ECTAB PO SCH (07:41)
[2016-04-12] MEDS: ISOSORBIDE MONONITRATE 30 MG TABCR PO SCH (07:41)
[2016-04-12] MEDS: FINASTERIDE 5 MG TAB PO SCH (07:42)
[2016-04-12] MEDS: CARVEDILOL 6.25 MG TAB PO SCH ×2 (07:42→21:53)
[2016-04-12] MEDS: OMEGA-3 (PURIFIED FISH OIL) 1 GM CAP PO SCH ×2 (07:42→21:54)
[2016-04-12] MEDS: PENTOSAN POLYSULFATE SODIUM 100 MG CAP PO SCH ×2 (07:42→21:53)
[2016-04-12 07:43] LABS: ESTIMATED AVERAGE GLUCOSE 126 mg/dl; HA1C FLAG Normal (Normal)
[2016-04-12] MEDS: INSULIN ASPART 100 UNITS/ML 3 ML PEN SC SCH ×4 (08:22→21:00)
--- NOTE | 2016-04-12 11:42 | Progress Note ---
Internal Med Progress Note Date of Service: Apr 12, 2016. Provider Documentation: SUBJECTIVE: Patient continues to c/o suprapubic pain/dysuria. No fever, chills, flank pain Mental status- AAOX3, at his baseline OBJECTIVE: Vital Signs-as noted below Exam: General-AAOX3, no distress but frustrated with his condition Eyes-No Icterus Neck-Supple, No JVD Lungs-AEBE, no wheezing, rhonchi, rales Heart-S1,S2 normal, No murmur Abdomen-Soft, non tender, non distended, bs present Extremities-No edema Neuro-No focal deficits Lab data as noted below. IMAGING: CT OF THE HEAD WITHOUT CONTRAST CLINICAL HISTORY: Confusion. COMPARISON STUDY: Head CT November 19, 2015. CT DOSE: 1474.24 mGy.cm TECHNIQUE: Helical axial images of the head were obtained without IV contrast. Automated exposure control was utilized for the study. FINDINGS: No acute intracranial hemorrhage, midline shift or mass effect is present. Ventricular system is normal. The basilar cisterns are patent. There are no extra-axial collections. Tong-white differentiation is maintained. There are no findings to suggest acute dural sinus thrombosis or acute territorial infarct. There are a small amount of secretions within the right maxillary sinus. There are no significant calvarial abnormalities. There are postsurgical findings within the sinuses. IMPRESSION: No acute intracranial findings. CHEST ONE VIEW PORTABLE HISTORY: Sepsis COMPARISON: Chest 11/19/2015. FINDINGS: No pneumothorax. Small bilateral pleural effusions have slightly increased in size. Left-sided pacemaker is again noted. Bibasilar linear densities persist and suggest subsegmental atelectasis. No evidence for pulmonary edema. The heart remains mildly enlarged. No significant change in the 1.5 cm right midlung zone nodule. No new focal lung consolidations. IMPRESSION: 1. Small bilateral pleural effusions have slightly increased in size. 2. Bilateral lower lung zone linear densities persist and favor subsegmental atelectasis or scarring. 3. No significant change in the 1.5 cm right midlung zone nodule. CT OF THE ABDOMEN AND PELVIS WITHOUT CONTRAST, STONE PROTOCOL CLINICAL HISTORY: Bilateral flank pain. Hematuria. Urinary tract infection. COMPARISON STUDY: CT of the abdomen and pelvis October 28, 2015. TECHNIQUE: Helical axial images of the abdomen and pelvis were obtained without IV or oral contrast according to renal stone protocol. FINDINGS: Visualized portions of the lower chest demonstrate small bilateral pleural effusions with associated opacities which favor atelectasis. Pacer leads and cardiomegaly are noted. There is no pneumatosis, free air or portal venous gas. Note is made of several left renal calculi that measure up to 6 mm. A 5 mm calculus within lower pole of the right kidney is noted. There are no ureteral calculi. There is mild bilateral perinephric infiltration as well as infiltration within each renal sinus, greater on the left. There is bilateral urothelial thickening which has been shown on prior exams. There is mild dilatation of both ureters and mild left pelvicaliectasis. Moderate wall thickening of the bladder is noted with adjacent infiltration. The bladder suboptimally assessed due to underdistention. Unenhanced images of liver, spleen, adrenal glands and pancreas are normal. The gallbladder surgically absent. There is no evidence for a bowel obstruction. There is sigmoid diverticulosis without evidence for acute diverticulitis. No suspicious osseous lesions are identified within visualized skeletal structures. IMPRESSION: 1. Bilateral nephrolithiasis. No ureteral calculi. Mild dilatation of both ureters and mild left pelvicaliectasis. Bilateral urothelial thickening. The hyperdensity within the collecting systems, left greater than right, could reflect urothelial thickening or a small amount of hemorrhage. These findings are nonspecific and could reflect infection, recently passed stone or an underlying urothelial malignancy. Correlation with urinalysis and urine cytology as well as urologic consultation is recommended although similar findings have been shown on prior exams. 2. Persistent bladder wall thickening adjacent infiltration which has been shown on prior exams. The findings favor cystitis. 3. Small bilateral pleural effusion with associated atelectasis. EKG ventricular paced rhythm, 80 bpm, prolonged QT, qtc =489 ASSESSMENT & PLAN: Assessment and Plan RECURRENT URINARY TRACT INFECTION Patient with underlying BPH, chronic urinary symptoms of dysuria, supra pubic pain --> on Elmiron Failed outpatient treatment with Ciprofloxacin--> Urine culture 04/08 grew mixed ashleigh -Afebrile; no leukocytosis on presentation -Work up- CT a/p- "1. Bilateral nephrolithiasis. No ureteral calculi. Mild dilatation of both ureters and mild left pelvicaliectasis. Bilateral urothelial thickening. The hyperdensity within the collecting systems, left greater than right, could reflect urothelial thickening or a small amount of hemorrhage. These findings are nonspecific and could reflect infection, recently passed stone or an underlying urothelial malignancy. Correlation with urinalysis and urine cytology as well as urologic consultation is recommended although similar findings have been shown on prior exams. 2. Persistent bladder wall thickening adjacent infiltration which has been shown on prior exams. The findings favor cystitis. 3. Small bilateral pleural effusion with associated atelectasis. -S/P IV Aztreonam in ED- Continue with Aztreonam -Urine/Blood cx- pending -Urology consulted ALTERED MENTAL STATUS- Resolved Presents with increased irritability and forgetfulness Likely metabolic encephalopathy due to UTI -CT head- no acute findings -No focal deficits on exam GENERALIZED WEAKNESS/ MECHANICAL FALL Likely secondary to UTI -PT and OT evaluations DYSPHAGIA Seems to be chronic; has underlying stricture which was dilated in the past -Will need GI follow up as outpatient -Aspiration precautions ordered COPD WITH CHRONIC HYPOXIC RESPIRATORY FAILURE Not in acute exacerbation -Continue home nebs -On chronic supplemental O2 - 3 L HS and PRN activity CKD STAGE III Cr is 1.5 which is stable from baseline Monitor renal function Avoid nephrotoxins when able HYPERTENSION BP elevated up to 160s in ER, likely from anxiety Continue carvedilol and isosorbide Monitor CAD S/P STENTING Stable, no anginal symptoms Continue aspirin, statin, beta miko, Imdur CHRONIC SYSTOLIC HEART FAILURE Recent EF 50-54% on recent echo 03/01/2016; prior EF 45% Appears euvolemic On PRN Lasix at home- hold for now 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 Vital Signs: Date Time Temp Pulse Resp B/P Pulse Ox O2 Delivery O2 Flow Rate FiO2 04/12/16 11:28 138/69 04/12/16 08:20 Nasal Cannula 2.0 04/12/16 07:08 36.7 74 20 175/78 95 Nasal Cannula 2.0 04/11/16 20:45 36.6 91 20 194/81 95 Nasal Cannula 3.0 04/11/16 20:18 82 18 165/79 93 04/11/16 19:58 82 18 165/79 93 Room Air 04/11/16 19:04 81 18 160/78 92 Room Air 04/11/16 17:12 81 18 157/80 94 Nasal Cannula 3.0 04/11/16 16:36 96 Nasal Cannula 04/11/16 14:51 36.7 97 20 145/69 96 Nasal Cannula 3.0 Lab Results: Results Past 24 Hours Test 04/11/16 15:48 04/11/16 16:12 04/11/16 16:20 04/11/16 16:45 Range/Units White Blood Count 7.13 4.8-10.8 K/uL Red Blood Count 4.22 4.7-6.1 M/uL Hemoglobin 12.2 14.0-18.0 g/dL Hematocrit 38.7 42-52 % Mean Corpuscular Volume 91.7 80-100 fL Mean Corpuscular Hemoglobin 28.9 25-34 pg Mean Corpuscular Hemoglobin Concent 31.5 32-36 g/dl Platelet Count 210 130-400 K/uL Mean Platelet Volume 9.4 7.4-10.4 fL Neutrophils (%) (Auto) 70.2 % Lymphocytes (%) (Auto) 18.1 % Monocytes (%) (Auto) 9.7 % Eosinophils (%) (Auto) 1.4 % Basophils (%) (Auto) 0.3 % Neutrophils # (Auto) 5.01 1.4-6.5 K/uL Lymphocytes # (Auto) 1.29 1.2-3.4 K/uL Monocytes # (Auto) 0.69 0.11-0.59 K/uL Eosinophils # (Auto) 0.10 0-0.5 K/uL Basophils # (Auto) 0.02 0-0.2 K/uL RDW Standard Deviation 45.9 36.4-46.3 fL RDW Coefficient of Variation 13.7 11.5-14.5 % Immature Granulocyte % (Auto) 0.3 % Immature Granulocyte # (Auto) 0.02 0.00-0.02 K/uL Prothrombin Time 10.9 9.0-12.0 SECONDS Prothromb Time International Ratio 1.0 0.9-1.1 Activated Partial Thromboplast Time 26.8 21.0-31.0 SECONDS Partial Thromboplastin Ratio 1.0 Sodium Level 143 136-145 mmol/L Potassium Level 4.0 3.5-5.1 mmol/L Chloride Level 105 98-107 mmol/L Carbon Dioxide Level 30 21-32 mmol/L Anion Gap 8.0 3-11 mmol/L Blood Urea Nitrogen 16 7-18 mg/dl Creatinine 1.50 0.60-1.40 mg/dl Est Creatinine Clear Calc Drug Dose 46.4 ml/min Estimated GFR () 49.5 Estimated GFR (Non- 42.7 BUN/Creatinine Ratio 10.9 10-20 Random Glucose 168 70-99 mg/dl Calcium Level 8.5 8.5-10.1 mg/dl Magnesium Level 1.7 1.8-2.4 mg/dl Total Bilirubin 0.2 0.2-1 mg/dl Aspartate Amino Transf (AST/SGOT) 14 15-37 U/L Alanine Aminotransferase (ALT/SGPT) 15 12-78 U/L Alkaline Phosphatase 79 45-117 U/L Ammonia 32.0 11-32 umol/L Troponin I < 0.015 0-0.045 ng/ml Total Protein 6.6 6.4-8.2 gm/dl Albumin 3.1 3.4-5.0 gm/dl Globulin 3.5 2.5-4.0 gm/dl Albumin/Globulin Ratio 0.9 0.9-2 Thyroid Stimulating Hormone (TSH) 1.740 0.300-4.500 uIu/ml Bedside Lactic Acid Venous 1.55 0.90-1.70 mmol/L Urine Color YELLOW Urine Appearance TURBID CLEAR Urine pH 6.0 4.5-7.5 Urine Specific Pegram 1.017 1.000-1.030 Urine Protein 3+ NEG Urine Glucose (UA) NEG NEG Urine Ketones NEG NEG Urine Occult Blood 2+ NEG Urine Nitrite NEG NEG Urine Bilirubin NEG NEG Urine Urobilinogen NEG NEG Urine Leukocyte Esterase LARGE NEG Urine WBC (Auto) >30 0-5 /hpf Urine RBC (Auto) 10-30 0-4 /hpf Urine Hyaline Casts (Auto) 5-10 0-5 /lpf Urine Epithelial Cells (Auto) >30 0-5 /lpf Urine Bacteria (Auto) NEG NEG Urine Pathogenic Casts 0 /lpf Urine Yeast (Auto) NONE PRSENT Test 04/11/16 20:08 04/11/16 22:50 04/12/16 05:20 04/12/16 07:26 Range/Units Bedside Glucose 76 111 136 70-99 mg/dl White Blood Count 6.20 4.8-10.8 K/uL Red Blood Count 3.97 4.7-6.1 M/uL Hemoglobin 11.5 14.0-18.0 g/dL Hematocrit 36.2 42-52 % Mean Corpuscular Volume 91.2 80-100 fL Mean Corpuscular Hemoglobin 29.0 25-34 pg Mean Corpuscular Hemoglobin Concent 31.8 32-36 g/dl RDW Standard Deviation 45.2 36.4-46.3 fL RDW Coefficient of Variation 13.6 11.5-14.5 % Platelet Count 186 130-400 K/uL Mean Platelet Volume 9.0 7.4-10.4 fL Sodium Level 145 136-145 mmol/L Potassium Level 3.8 3.5-5.1 mmol/L Chloride Level 108 98-107 mmol/L Carbon Dioxide Level 30 21-32 mmol/L Anion Gap 7.0 3-11 mmol/L Blood Urea Nitrogen 17 7-18 mg/dl Creatinine 1.50 0.60-1.40 mg/dl Est Creatinine Clear Calc Drug Dose 46.2 ml/min Estimated GFR () 49.5 Estimated GFR (Non- 42.7 BUN/Creatinine Ratio 11.3 10-20 Random Glucose 149 70-99 mg/dl Estimated Average Glucose 126 mg/dl Hemoglobin A1c 6.0 4.5-5.6 % Calcium Level 8.6 8.5-10.1 mg/dl Magnesium Level 1.9 1.8-2.4 mg/dl Test 04/12/16 11:13 Range/Units Bedside Glucose 166 70-99 mg/dl Microbiology Results 04/11/16 Blood Culture, Received Pending 04/11/16 Blood Culture, Received Pending 04/11/16 Urine Culture, Received Pending
[2016-04-12] MEDS: ACETAMINOPHEN 325 MG TAB PO PRN ×2 (16:17→22:18)
[2016-04-12] MEDS: TAMSULOSIN HCL 0.4 MG CAP PO SCH (21:54)
[2016-04-12] MEDS: DOCUSATE SODIUM/SENNA 50/8.6MG TAB PO SCH (21:55)
[2016-04-12] MEDS: SERTRALINE HCL 100 MG TAB PO SCH (21:56)
[2016-04-12] MEDS: SIMVASTATIN 20 MG TAB PO SCH (21:56)
[2016-04-13] VITALS: O2SAT 98
[2016-04-13] MEDS ORDERED: CLONIDINE HCL 0.1 MG TAB PO PRN (00:15)
[2016-04-13] MEDS: AZTREONAM IV 1,000 MG in DEXTROSE 5% 100ML IV SCH ×3 (02:02→17:31)
[2016-04-13 07:52] VITALS: BP 145/79; PULSE 75; TEMP 36.6; O2SAT 95
[2016-04-13 08:43] LABS: HEMATOCRIT 37.7 % (42-52); MEAN CELL VOLUME 92.2 fL (80-100); MEAN CORPUSCULAR HEMOGLOBIN 28.9 pg (25-34); MEAN CORPUSCULAR HGB CONC 31.3 g/dl (32-36); MEAN PLATELET VOLUME 9.2 fL (7.4-10.4); PLATELET COUNT 188 K/uL (130-400); RED BLOOD COUNT 4.09 M/uL (4.7-6.1); WHITE BLOOD COUNT 6.14 K/uL (4.8-10.8)
[2016-04-13] MEDS: ASPIRIN 81 MG ECTAB PO SCH (09:05)
[2016-04-13] MEDS: CYANOCOBALAMIN 500 MCG TAB (VIT B-12) PO SCH (09:05)
[2016-04-13] MEDS: PANTOprazole SOD 40 MG TAB PO SCH (09:05)
[2016-04-13] MEDS: PENTOSAN POLYSULFATE SODIUM 100 MG CAP PO SCH ×2 (09:05→21:19)
[2016-04-13] MEDS: ASCORBIC ACID 500 MG TAB PO SCH (09:05)
[2016-04-13] MEDS: OMEGA-3 (PURIFIED FISH OIL) 1 GM CAP PO SCH ×2 (09:05→21:18)
[2016-04-13] MEDS: FINASTERIDE 5 MG TAB PO SCH (09:05)
[2016-04-13] MEDS: CHOLECALCIFEROL 1000 INTER.UNIT TAB PO SCH (09:05)
[2016-04-13] MEDS: CARVEDILOL 6.25 MG TAB PO SCH ×2 (09:05→21:16)
[2016-04-13] MEDS: ISOSORBIDE MONONITRATE 30 MG TABCR PO SCH (09:05)
[2016-04-13 09:09] LABS: BUN/CREATININE RATIO 13.6 (10-20); CALCIUM 8.8 mg/dl (8.5-10.1); CREATININE 1.5 mg/dl (0.60-1.40); POTASSIUM 4.2 mmol/L (3.5-5.1)
--- NOTE | 2016-04-13 11:15 | Progress Note ---
Internal Med Progress Note Date of Service: Apr 13, 2016. Provider Documentation: SUBJECTIVE: Patient continues to c/o suprapubic pain/dysuria and is very frustrated as has been struggling with this x 3 years. No fever, chills, flank pain Mental status- AAOX3, at his baseline Overall symptoms marginally better. Incontinence persists. OBJECTIVE: Vital Signs-as noted below Exam: General-AAOX3, no distress but frustrated with his condition Eyes-No Icterus Neck-Supple, No JVD Lungs-AEBE, no wheezing, rhonchi, rales Heart-S1,S2 normal, No murmur Abdomen-Soft, non tender, non distended, bs present Extremities-No edema Neuro-No focal deficits Lab data as noted below. IMAGING: CT OF THE HEAD WITHOUT CONTRAST CLINICAL HISTORY: Confusion. COMPARISON STUDY: Head CT November 19, 2015. CT DOSE: 1474.24 mGy.cm TECHNIQUE: Helical axial images of the head were obtained without IV contrast. Automated exposure control was utilized for the study. FINDINGS: No acute intracranial hemorrhage, midline shift or mass effect is present. Ventricular system is normal. The basilar cisterns are patent. There are no extra-axial collections. Tong-white differentiation is maintained. There are no findings to suggest acute dural sinus thrombosis or acute territorial infarct. There are a small amount of secretions within the right maxillary sinus. There are no significant calvarial abnormalities. There are postsurgical findings within the sinuses. IMPRESSION: No acute intracranial findings. CHEST ONE VIEW PORTABLE HISTORY: Sepsis COMPARISON: Chest 11/19/2015. FINDINGS: No pneumothorax. Small bilateral pleural effusions have slightly increased in size. Left-sided pacemaker is again noted. Bibasilar linear densities persist and suggest subsegmental atelectasis. No evidence for pulmonary edema. The heart remains mildly enlarged. No significant change in the 1.5 cm right midlung zone nodule. No new focal lung consolidations. IMPRESSION: 1. Small bilateral pleural effusions have slightly increased in size. 2. Bilateral lower lung zone linear densities persist and favor subsegmental atelectasis or scarring. 3. No significant change in the 1.5 cm right midlung zone nodule. CT OF THE ABDOMEN AND PELVIS WITHOUT CONTRAST, STONE PROTOCOL CLINICAL HISTORY: Bilateral flank pain. Hematuria. Urinary tract infection. COMPARISON STUDY: CT of the abdomen and pelvis October 28, 2015. TECHNIQUE: Helical axial images of the abdomen and pelvis were obtained without IV or oral contrast according to renal stone protocol. FINDINGS: Visualized portions of the lower chest demonstrate small bilateral pleural effusions with associated opacities which favor atelectasis. Pacer leads and cardiomegaly are noted. There is no pneumatosis, free air or portal venous gas. Note is made of several left renal calculi that measure up to 6 mm. A 5 mm calculus within lower pole of the right kidney is noted. There are no ureteral calculi. There is mild bilateral perinephric infiltration as well as infiltration within each renal sinus, greater on the left. There is bilateral urothelial thickening which has been shown on prior exams. There is mild dilatation of both ureters and mild left pelvicaliectasis. Moderate wall thickening of the bladder is noted with adjacent infiltration. The bladder suboptimally assessed due to underdistention. Unenhanced images of liver, spleen, adrenal glands and pancreas are normal. The gallbladder surgically absent. There is no evidence for a bowel obstruction. There is sigmoid diverticulosis without evidence for acute diverticulitis. No suspicious osseous lesions are identified within visualized skeletal structures. IMPRESSION: 1. Bilateral nephrolithiasis. No ureteral calculi. Mild dilatation of both ureters and mild left pelvicaliectasis. Bilateral urothelial thickening. The hyperdensity within the collecting systems, left greater than right, could reflect urothelial thickening or a small amount of hemorrhage. These findings are nonspecific and could reflect infection, recently passed stone or an underlying urothelial malignancy. Correlation with urinalysis and urine cytology as well as urologic consultation is recommended although similar findings have been shown on prior exams. 2. Persistent bladder wall thickening adjacent infiltration which has been shown on prior exams. The findings favor cystitis. 3. Small bilateral pleural effusion with associated atelectasis. EKG ventricular paced rhythm, 80 bpm, prolonged QT, qtc =489 ASSESSMENT & PLAN: Assessment and Plan RECURRENT URINARY TRACT INFECTION ? Patient with underlying BPH, chronic urinary symptoms of dysuria, supra pubic pain --> on [place] Failed outpatient treatment with Ciprofloxacin--> Urine culture 04/08 grew mixed ashleigh -Afebrile; no leukocytosis on presentation -Work up- CT a/p- 1. Bilateral nephrolithiasis. No ureteral calculi. Mild dilatation of both ureters and mild left pelvicaliectasis. Bilateral urothelial thickening. The hyperdensity within the collecting systems, left greater than right, could reflect urothelial thickening or a small amount of hemorrhage. These findings are nonspecific and could reflect infection, recently passed stone or an underlying urothelial malignancy. Correlation with urinalysis and urine cytology as well as urologic consultation is recommended although similar findings have been shown on prior exams. 2. Persistent bladder wall thickening adjacent infiltration which has been shown on prior exams. The findings favor cystitis. 3. Small bilateral pleural effusion with associated atelectasis. -S/P IV Aztreonam in ED- Continue with Aztreonam (Day 2) -Urine cx- no sig growth, Blood cx x 2- negative -Urology consulted-awaiting inputs. ALTERED MENTAL STATUS- Resolved Presents with increased irritability and forgetfulness Likely metabolic encephalopathy due to UTI -CT head- no acute findings -No focal deficits on exam GENERALIZED WEAKNESS/ MECHANICAL FALL Likely secondary to UTI -PT and OT evaluations DYSPHAGIA Seems to be chronic; has underlying stricture which was dilated in the past -Will need GI follow up as outpatient -Aspiration precautions ordered COPD WITH CHRONIC HYPOXIC RESPIRATORY FAILURE Not in acute exacerbation -Continue home nebs -On chronic supplemental O2 - 3 L HS and PRN activity CKD STAGE III Cr is 1.5 which is stable from baseline Monitor renal function Avoid nephrotoxins when able HYPERTENSION BP elevated up to 160s in ER, likely from anxiety Continue carvedilol and isosorbide Monitor CAD S/P STENTING Stable, no anginal symptoms Continue aspirin, statin, beta miko, Imdur CHRONIC SYSTOLIC HEART FAILURE Recent EF 50-54% on recent echo 03/01/2016; prior EF 45% Appears euvolemic On PRN Lasix at home- hold for now 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 Vital Signs: Date Time Temp Pulse Resp B/P Pulse Ox O2 Delivery O2 Flow Rate FiO2 04/13/16 07:52 36.6 75 18 145/79 95 Nasal Cannula 3.0 04/13/16 00:00 98 Nasal Cannula 3.0 04/12/16 23:01 36.9 76 20 171/78 98 3.0 04/12/16 18:13 78 154/74 04/12/16 16:09 Nasal Cannula 3.0 04/12/16 16:03 37.0 99 18 173/92 94 3.0 04/12/16 15:30 36.3 100 20 213/101 93 Nasal Cannula 3.0 04/12/16 11:28 138/69 Lab Results: Results Past 24 Hours Test 04/12/16 11:13 04/12/16 16:21 04/12/16 20:39 04/13/16 07:17 Range/Units Bedside Glucose 166 115 136 128 70-99 mg/dl Test 04/13/16 08:16 Range/Units White Blood Count 6.14 4.8-10.8 K/uL Red Blood Count 4.09 4.7-6.1 M/uL Hemoglobin 11.8 14.0-18.0 g/dL Hematocrit 37.7 42-52 % Mean Corpuscular Volume 92.2 80-100 fL Mean Corpuscular Hemoglobin 28.9 25-34 pg Mean Corpuscular Hemoglobin Concent 31.3 32-36 g/dl RDW Standard Deviation 45.8 36.4-46.3 fL RDW Coefficient of Variation 13.6 11.5-14.5 % Platelet Count 188 130-400 K/uL Mean Platelet Volume 9.2 7.4-10.4 fL Sodium Level 143 136-145 mmol/L Potassium Level 4.2 3.5-5.1 mmol/L Chloride Level 107 98-107 mmol/L Carbon Dioxide Level 30 21-32 mmol/L Anion Gap 6.0 3-11 mmol/L Blood Urea Nitrogen 20 7-18 mg/dl Creatinine 1.50 0.60-1.40 mg/dl Est Creatinine Clear Calc Drug Dose 46.2 ml/min Estimated GFR () 49.5 Estimated GFR (Non- 42.7 BUN/Creatinine Ratio 13.6 10-20 Random Glucose 149 70-99 mg/dl Calcium Level 8.8 8.5-10.1 mg/dl
[2016-04-13] MEDS: INSULIN ASPART 100 UNITS/ML 3 ML PEN SC SCH ×3 (12:58→21:24)
[2016-04-13] MEDS: ACETAMINOPHEN 325 MG TAB PO PRN (14:46)
[2016-04-13 15:14] VITALS: BP 124/65; PULSE 76; TEMP 36.8; O2SAT 94
[2016-04-13 16:42] VITALS: PULSE 72; O2SAT 95
[2016-04-13 19:41] VITALS: PULSE 76; O2SAT 98
[2016-04-13] MEDS: LEVALBUTEROL 1.25MG/3ML NEB INH SCH (19:41)
[2016-04-13] MEDS: IPRATROPIUM BROMIDE NEB SOLN 0.02% 2.5 ML VIAL INH SCH (19:41)
[2016-04-13] MEDS: SIMVASTATIN 20 MG TAB PO SCH (21:16)
[2016-04-13] MEDS: DOCUSATE SODIUM/SENNA 50/8.6MG TAB PO SCH (21:16)
[2016-04-13] MEDS: SERTRALINE HCL 100 MG TAB PO SCH (21:16)
[2016-04-13] MEDS: TAMSULOSIN HCL 0.4 MG CAP PO SCH (21:17)
[2016-04-13 21:20] VITALS: BP 133/76; PULSE 72
[2016-04-14] VITALS (11 sets, daily range): BP systolic 102–161; BP diastolic 59–84; PULSE 68–86; TEMP 36.4–36.8; O2SAT 96–98
[2016-04-14] MEDS: AZTREONAM IV 1,000 MG in DEXTROSE 5% 100ML IV SCH ×3 (02:00→17:16)
[2016-04-14] MEDS: IPRATROPIUM BROMIDE NEB SOLN 0.02% 2.5 ML VIAL INH SCH ×3 (07:20→20:14)
[2016-04-14] MEDS: LEVALBUTEROL 1.25MG/3ML NEB INH SCH ×3 (07:21→20:14)
[2016-04-14 08:17] LABS: CREATININE 1.4 mg/dl (0.60-1.40)
[2016-04-14] MEDS: CARVEDILOL 6.25 MG TAB PO SCH ×2 (08:34→20:22)
[2016-04-14] MEDS: ASPIRIN 81 MG ECTAB PO SCH (08:34)
[2016-04-14] MEDS: PENTOSAN POLYSULFATE SODIUM 100 MG CAP PO SCH ×2 (08:34→20:23)
[2016-04-14] MEDS: FINASTERIDE 5 MG TAB PO SCH (08:35)
[2016-04-14] MEDS: PANTOprazole SOD 40 MG TAB PO SCH (08:35)
[2016-04-14] MEDS: CHOLECALCIFEROL 1000 INTER.UNIT TAB PO SCH (08:35)
[2016-04-14] MEDS: CYANOCOBALAMIN 500 MCG TAB (VIT B-12) PO SCH (08:35)
[2016-04-14] MEDS: ISOSORBIDE MONONITRATE 30 MG TABCR PO SCH (08:35)
[2016-04-14] MEDS: OMEGA-3 (PURIFIED FISH OIL) 1 GM CAP PO SCH ×2 (08:35→20:22)
[2016-04-14] MEDS: ASCORBIC ACID 500 MG TAB PO SCH (08:35)
[2016-04-14] MEDS: INSULIN ASPART 100 UNITS/ML 3 ML PEN SC SCH ×4 (08:44→20:26)
--- NOTE | 2016-04-14 10:13 | Progress Note ---
Internal Med Progress Note Date of Service: Apr 14, 2016. Provider Documentation: SUBJECTIVE: Patient continues to c/o suprapubic pain/dysuria -- marginal improvement + No fever, chills, flank pain Mental status- AAOX3, at his baseline Overall symptoms marginally better. Incontinence persists. OBJECTIVE: Vital Signs-as noted below Exam: General-AAOX3, no distress but frustrated with his condition Eyes-No Icterus Neck-Supple, No JVD Lungs-AEBE, no wheezing, rhonchi, rales Heart-S1,S2 normal, No murmur Abdomen-Soft, non tender, non distended, bs present Extremities-No edema Neuro-No focal deficits - Hydrocele Lab data as noted below. IMAGING: CT OF THE HEAD WITHOUT CONTRAST CLINICAL HISTORY: Confusion. COMPARISON STUDY: Head CT November 19, 2015. CT DOSE: 1474.24 mGy.cm TECHNIQUE: Helical axial images of the head were obtained without IV contrast. Automated exposure control was utilized for the study. FINDINGS: No acute intracranial hemorrhage, midline shift or mass effect is present. Ventricular system is normal. The basilar cisterns are patent. There are no extra-axial collections. Tong-white differentiation is maintained. There are no findings to suggest acute dural sinus thrombosis or acute territorial infarct. There are a small amount of secretions within the right maxillary sinus. There are no significant calvarial abnormalities. There are postsurgical findings within the sinuses. IMPRESSION: No acute intracranial findings. CHEST ONE VIEW PORTABLE HISTORY: Sepsis COMPARISON: Chest 11/19/2015. FINDINGS: No pneumothorax. Small bilateral pleural effusions have slightly increased in size. Left-sided pacemaker is again noted. Bibasilar linear densities persist and suggest subsegmental atelectasis. No evidence for pulmonary edema. The heart remains mildly enlarged. No significant change in the 1.5 cm right midlung zone nodule. No new focal lung consolidations. IMPRESSION: 1. Small bilateral pleural effusions have slightly increased in size. 2. Bilateral lower lung zone linear densities persist and favor subsegmental atelectasis or scarring. 3. No significant change in the 1.5 cm right midlung zone nodule. CT OF THE ABDOMEN AND PELVIS WITHOUT CONTRAST, STONE PROTOCOL CLINICAL HISTORY: Bilateral flank pain. Hematuria. Urinary tract infection. COMPARISON STUDY: CT of the abdomen and pelvis October 28, 2015. TECHNIQUE: Helical axial images of the abdomen and pelvis were obtained without IV or oral contrast according to renal stone protocol. FINDINGS: Visualized portions of the lower chest demonstrate small bilateral pleural effusions with associated opacities which favor atelectasis. Pacer leads and cardiomegaly are noted. There is no pneumatosis, free air or portal venous gas. Note is made of several left renal calculi that measure up to 6 mm. A 5 mm calculus within lower pole of the right kidney is noted. There are no ureteral calculi. There is mild bilateral perinephric infiltration as well as infiltration within each renal sinus, greater on the left. There is bilateral urothelial thickening which has been shown on prior exams. There is mild dilatation of both ureters and mild left pelvicaliectasis. Moderate wall thickening of the bladder is noted with adjacent infiltration. The bladder suboptimally assessed due to underdistention. Unenhanced images of liver, spleen, adrenal glands and pancreas are normal. The gallbladder surgically absent. There is no evidence for a bowel obstruction. There is sigmoid diverticulosis without evidence for acute diverticulitis. No suspicious osseous lesions are identified within visualized skeletal structures. IMPRESSION: 1. Bilateral nephrolithiasis. No ureteral calculi. Mild dilatation of both ureters and mild left pelvicaliectasis. Bilateral urothelial thickening. The hyperdensity within the collecting systems, left greater than right, could reflect urothelial thickening or a small amount of hemorrhage. These findings are nonspecific and could reflect infection, recently passed stone or an underlying urothelial malignancy. Correlation with urinalysis and urine cytology as well as urologic consultation is recommended although similar findings have been shown on prior exams. 2. Persistent bladder wall thickening adjacent infiltration which has been shown on prior exams. The findings favor cystitis. 3. Small bilateral pleural effusion with associated atelectasis. EKG ventricular paced rhythm, 80 bpm, prolonged QT, qtc =489 ASSESSMENT & PLAN: Assessment and Plan RECURRENT URINARY TRACT INFECTION ? Patient with underlying BPH, chronic urinary symptoms of dysuria, supra pubic pain --> on Elmiron Failed outpatient treatment with Ciprofloxacin--> Urine culture 04/08 grew mixed ashleigh -Afebrile; no leukocytosis on presentation -Work up- CT a/p- 1. Bilateral nephrolithiasis. No ureteral calculi. Mild dilatation of both ureters and mild left pelvicaliectasis. Bilateral urothelial thickening. The hyperdensity within the collecting systems, left greater than right, could reflect urothelial thickening or a small amount of hemorrhage. These findings are nonspecific and could reflect infection, recently passed stone or an underlying urothelial malignancy. Correlation with urinalysis and urine cytology as well as urologic consultation is recommended although similar findings have been shown on prior exams. 2. Persistent bladder wall thickening adjacent infiltration which has been shown on prior exams. The findings favor cystitis. 3. Small bilateral pleural effusion with associated atelectasis. -S/P IV Aztreonam in ED- Continue with Aztreonam (Day 3) -Urine cx- no sig growth, Blood cx x 2- negative -Urology consulted-awaiting inputs. PLAN: On IV Aztreonam. Urine cx- no sig growth, but as symptoms are improving-- > will continue for now. Awaiting Urology inputs. ALTERED MENTAL STATUS- Resolved Presented with increased irritability and forgetfulness Likely metabolic encephalopathy due to UTI -CT head- no acute findings -No focal deficits on exam GENERALIZED WEAKNESS/ MECHANICAL FALL Likely secondary to UTI -PT and OT evaluations DYSPHAGIA Seems to be chronic; has underlying stricture which was dilated in the past -Will need GI follow up as outpatient -Aspiration precautions ordered COPD WITH CHRONIC HYPOXIC RESPIRATORY FAILURE Not in acute exacerbation -Continue home nebs -On chronic supplemental O2 - 3 L HS and PRN activity CKD STAGE III Cr is 1.5 which is stable from baseline Monitor renal function Avoid nephrotoxins when able HYPERTENSION -Continue carvedilol and isosorbide -Monitor CAD S/P STENTING -Stable, no anginal symptoms -Continue aspirin, statin, beta miko, Imdur CHRONIC SYSTOLIC HEART FAILURE -Recent EF 50-54% on recent echo 03/01/2016; prior EF 45% -Appears euvolemic -On PRN Lasix at home- hold for now with ongoing infection 2ND DEGREE AV BLOCK S/p pacemaker HISTORY OF ATRIAL FLUTTER -Currently in paced rhythm -Continue beta miko -Not on anticoagulation DM TYPE 2 -Hold metformin and glipizide -Insulin sliding scale coverage -HBA1C 6.00 BPH -Continue Flomax and Proscar DEPRESSION -Continue Zoloft DYSLIPIDEMIA -Continue statin DVT PROPHYLAXIS -SCD's due to microscopic hematuria CODE STATUS -Full code per my discussion with patient and at bedside. Vital Signs: Date Time Temp Pulse Resp B/P Pulse Ox O2 Delivery O2 Flow Rate FiO2 04/14/16 07:26 36.4 75 18 144/74 98 Nasal Cannula 3.0 04/14/16 07:21 74 20 97 Nasal Cannula 3.0 04/14/16 01:39 97 Nasal Cannula 3.0 04/14/16 00:22 36.5 79 20 153/75 97 Nasal Cannula 3.0 04/13/16 21:20 72 133/76 04/13/16 19:41 76 20 98 Nasal Cannula 3.0 04/13/16 16:42 72 20 95 Nasal Cannula 3.0 04/13/16 16:00 Nasal Cannula 3.0 04/13/16 15:14 36.8 76 16 124/65 94 Nasal Cannula 3.0 04/13/16 11:18 Room Air Lab Results: Results Past 24 Hours Test 04/13/16 11:40 04/13/16 16:19 04/13/16 20:24 04/14/16 07:22 Range/Units Bedside Glucose 193 170 167 135 70-99 mg/dl Test 04/14/16 07:35 Range/Units Creatinine 1.40 0.60-1.40 mg/dl Est Creatinine Clear Calc Drug Dose 49.5 ml/min Estimated GFR () 53.8 Estimated GFR (Non- 46.5
[2016-04-14] MEDS: SIMVASTATIN 20 MG TAB PO SCH (20:22)
[2016-04-14] MEDS: DOCUSATE SODIUM/SENNA 50/8.6MG TAB PO SCH (20:23)
[2016-04-14] MEDS: TAMSULOSIN HCL 0.4 MG CAP PO SCH (20:23)
[2016-04-14] MEDS: SERTRALINE HCL 100 MG TAB PO SCH (20:23)
[2016-04-14] MEDS: LORAZEPAM 0.5 MG TAB PO PRN (23:13)
[2016-04-15] MEDS: AZTREONAM IV 1,000 MG in DEXTROSE 5% 100ML IV SCH ×3 (01:26→16:25)
[2016-04-15] MEDS: ACETAMINOPHEN 325 MG TAB PO PRN ×2 (05:19→15:43)
[2016-04-15 07:11] VITALS: PULSE 84; O2SAT 97
[2016-04-15] MEDS: IPRATROPIUM BROMIDE NEB SOLN 0.02% 2.5 ML VIAL INH SCH ×3 (07:11→20:15)
[2016-04-15] MEDS: LEVALBUTEROL 1.25MG/3ML NEB INH SCH ×3 (07:11→20:18)
[2016-04-15 08:25] VITALS: BP 137/72; PULSE 82; TEMP 36.5; O2SAT 94
[2016-04-15] MEDS: INSULIN ASPART 100 UNITS/ML 3 ML PEN SC SCH ×4 (09:53→20:41)
[2016-04-15] MEDS: ASPIRIN 81 MG ECTAB PO SCH (10:20)
[2016-04-15] MEDS: CYANOCOBALAMIN 500 MCG TAB (VIT B-12) PO SCH (10:20)
[2016-04-15] MEDS: CARVEDILOL 6.25 MG TAB PO SCH ×2 (10:20→19:52)
[2016-04-15] MEDS: PENTOSAN POLYSULFATE SODIUM 100 MG CAP PO SCH ×2 (10:21→19:52)
[2016-04-15] MEDS: ISOSORBIDE MONONITRATE 30 MG TABCR PO SCH (10:21)
[2016-04-15] MEDS: PANTOprazole SOD 40 MG TAB PO SCH (10:21)
[2016-04-15] MEDS: FINASTERIDE 5 MG TAB PO SCH (10:22)
[2016-04-15] MEDS: CHOLECALCIFEROL 1000 INTER.UNIT TAB PO SCH (10:22)
[2016-04-15] MEDS: OMEGA-3 (PURIFIED FISH OIL) 1 GM CAP PO SCH ×2 (10:22→19:52)
[2016-04-15] MEDS: ASCORBIC ACID 500 MG TAB PO SCH (10:23)
[2016-04-15 10:52] VITALS: BP 149/77; PULSE 90; O2SAT 96
[2016-04-15 14:00] VITALS: PULSE 74; O2SAT 90
[2016-04-15 15:30] VITALS: BP 135/70; PULSE 79; TEMP 37; O2SAT 97
--- NOTE | 2016-04-15 18:03 | Urology Consultation ---
History General Date of Service: Apr 15, 2016. Chief Complaint: recurrent dysuria Primary Care Physician: Portia Candelaria M.D. Pt seen a urologist before?: Yes History of Present Illness I am asked by Dr Low to evaluate and treat patient for dysuria. It has been present for over a marin. He saw Dr mar, [employer], and Dr Rodney then me. He has had a cysto 2016 (Dr Rodney) no findings. He has severe dysuria such that he screams when he urinates at times. He has fairly consistent pyuria but his cultures are sometimes clean, sometimes yeast sometimes bacteria. He last 2 ct scans 2016 showed inflammatory changes around bladder and kidneys but not prostate. He has medium stones in bilateral kidneys non obstructing. He has severe urinary urge incontinence which has been refractory to all antimuscarinic meds. He has declined PTNS or botox to treat urinary incontinence. He is admitted now after a fall. He is with poor appetite and has moderate to severe dysuria. His testes hurt too. No fever no white count. Imaging Imaging: CT Laboratory Results Past 24 Hours Test 04/14/16 20:23 04/15/16 07:58 04/15/16 11:42 04/15/16 16:35 Range/Units Bedside Glucose 249 120 167 166 70-99 mg/dl Labs were reviewed and are within normal limits unless listed below. Labs are available in the chart and at [facility] Problem List Medical Problems: (1) Altered mental status Status: Acute (2) Change in mental status Status: Acute (3) Confusion Status: Acute (4) Dehydration Status: Acute (5) Failure of outpatient treatment Status: Acute (6) UTI (urinary tract infection) Status: Acute (7) Weakness Status: Acute (8) Weakness Status: Acute Past History arthritis, BPH, congestive heart failure, COPD, coronary artery disease, depression, diabetes, GERD, heart disease, high cholesterol, hypertension, pneumonia, other Past Surgical History: angioplasty with stent, cholecystectomy, pacemaker, sinus surgery, TKR, other Family History Cardiac disorder FATHER BROTHER SISTER Diabetes mellitus BROTHER SISTER Hypertension FATHER SISTER Social History Hx Tobacco Use In Past Year?: No (quit 40 years ago.) Smoking: non-smoker Alcohol: no current use Marital status: Housing status: lives with family Occupation status: retired Immunizations History of Influenza Vaccine: Yes Influenza Vaccine Date: Feb 09, 2015 History of Tetanus Vaccine?: Yes Tetanus Immunization Date: Jan 30, 2008 History of Pneumococcal: Yes Pneumococcal Date: Sep 16, 2014 History of MDRO No Allergies Coded Allergies: Penicillins (Verified Allergy, Mild, RASH, 11/19/15) Clindamycin (Verified Allergy, Unknown, UNKNOWN, 11/19/15) Morphine (Verified Adverse Reaction, Intermediate, mental status change, ) Oxycodone (Verified Adverse Reaction, Mild, CONFUSION, 11/19/15) Medications Home Medications: Home Meds and Scripts Medications Dose Route/Sig Max Daily Dose Days Date Category Dose Instructions [place] 5MG/325MG (Acetaminophen/Hydrocodone Bitart) Tab 1 Tablet PO Q6H PRN 04/11/16 Reported Vitamin D3 (Cholecalciferol) 1,000 Unit Tab 1 Tab PO DAILY 30 04/11/16 Reported Coreg (Carvedilol) 6.25 Mg Tab 6.25 Mg PO BID 04/11/16 Reported Prilosec (Omeprazole) 20 Mg Cap 20 Mg PO DAILY 04/11/16 Reported TAKE THIS MEDICATION ONCE DAILY 30-60 MINUTES BEFORE FIRST MEAL OF THE DAY Qc Stool Softener Plus [place] (Sennosides-Docusate Sodium) 1 Tab Tab 2 Tabs PO HS 04/11/16 Reported Sertraline HCl 100 Mg Tab 100 Mg PO HS 04/11/16 Reported Lorazepam 0.5 Mg Tab 0.5 Mg PO HS PRN 04/11/16 Reported Finasteride 5 Mg Tab 5 Mg PO DAILY 04/11/16 Reported Simvastatin 20 Mg Tab 20 Mg PO HS 04/11/16 Reported Isosorbide Mononitrate ER (Isosorbide Mononitrate) 30 Mg Tabcr 30 Mg PO QAM 04/11/16 Reported Cipro (Ciprofloxacin) 250 Mg Tab 250 Mg PO Q12 04/11/16 Reported PRESCRIBED 04/08/2016, TAKE DIRECTED UNTIL GONE Tamsulosin HCl 0.4 Mg Cap 0.4 Mg PO HS 04/11/16 Reported Oxygen Gas 3 Liters NA UD 11/19/15 Reported HS and PRN activity Elmiron (Pentosan Polysulfate Sodium) 100 Mg Cap 100 Mg PO BID 11/19/15 Reported Levalbuterol HCl (Levalbuterol) 1.25 Mg/3 Ml Nebu 1 Vial INH QID PRN 07/14/15 Reported Vitamin C (Ascorbic Acid) 500 Mg Tab 500 Mg PO DAILY 06/26/15 Reported Atrovent 0.02% Soln (Ipratropium [place]) 2.5 Ml Nebu 2.5 Ml NEB QID PRN 06/26/15 Reported Potassium Chloride Er (Potassium Chloride) 10 Meq Tab 10 Meq PO DAILY PRN 06/26/15 Reported Glucophage (Metformin Hcl) 1,000 Mg Tab 1,000 Mg PO BID 02/24/15 Reported TAKE THIS MEDICATION WITH BREAKFAST AND EVENING MEAL Aspirin Ec (Aspirin) 81 Mg Tab 81 Mg PO DAILY 02/24/15 Reported [place] ([place] ([place])) 500 Mg Cap 1,000 Mg PO BID 01/05/15 Reported Glucotrol Xl (Glipizide) 5 Mg Tab 5 Mg PO QAM 01/05/15 Reported Flonase Allergy Relief (Fluticasone Propionate (Nasal)) 50 Mcg/Act Spr 2 Sprays [place] DAILY PRN 01/05/15 Reported Lasix (Furosemide) 20 Mg Tab 20 Mg PO DAILY PRN 06/09/14 Reported Vitamin B-12 (Cyanocobalamin) 1,000 Mcg Tab 1,000 Mcg PO DAILY 07/12/12 Reported Randa (Fexofenadine Hcl) 180 Mg Tab 180 Mg PO DAILY PRN 07/11/12 Reported [place]-3 (Fish Oil) 1 Ea Cap 1 Cap PO BID 05/24/11 Reported Inpatient Medications: Current Inpatient Medications Medications (Trade) Dose Ordered Sig/Tonia Route Start Time Stop Time Status Last Admin Dose Admin Acetaminophen (Tylenol Tab) 650 mg Q4H PRN PO 04/11/16 20:00 05/11/16 19:59 04/15/16 15:43 650 MG Ondansetron HCl (Zofran Inj) 4 mg Q6H PRN IV 04/11/16 20:00 05/11/16 19:59 Insulin Aspart (novoLOG ASPART) SLIDING SCALE If C... ACHS SC 04/11/16 21:00 05/11/16 20:59 04/15/16 16:27 1 UNITS Glucose (Glucose 40% Gel) 15-30 GRAMS 15 GRAMS... UD PRN PO 04/11/16 20:15 05/11/16 20:14 Glucose (Glucose Chew Tab) 4-8 Tablets 4 Tabl... UD PRN PO 04/11/16 20:15 05/11/16 20:14 Dextrose (Dextrose 50% 50ML Syringe) 25-50ML OF 50% DW IV FOR... UD PRN IV 04/11/16 20:15 05/11/16 20:14 Glucagon (Glucagon Inj) 1 mg UD PRN SQ 04/11/16 20:15 05/11/16 20:14 Aspirin (Ecotrin Tab) 81 mg DAILY PO 04/12/16 09:00 05/12/16 08:59 04/15/16 10:20 81 MG Carvedilol (Coreg Tab) 6.25 mg BID PO 04/11/16 21:00 05/11/16 20:59 04/15/16 10:20 6.25 MG Cholecalciferol (Vitamin D Tab) 1,000 inter.unit DAILY PO 04/12/16 09:00 05/12/16 08:59 04/15/16 10:22 1,000 INTER.UNIT Cyanocobalamin (Vitamin B-12 Tab) 1,000 mcg DAILY PO 04/12/16 09:00 05/12/16 08:59 04/15/16 10:20 1,000 MCG Fexofenadine HCl (Randa Tab) 180 mg DAILY PRN PO 04/11/16 20:15 05/11/16 20:14 Finasteride (Proscar Tab) 5 mg DAILY PO 04/12/16 09:00 05/12/16 08:59 04/15/16 10:22 5 MG Fish Oil ([place]-3 (Purified Fish Oil) Cap) 1 gm BID PO 04/11/16 21:00 05/11/16 20:59 04/15/16 10:22 1 GM Fluticasone Propionate (Flonase Nasal [place]) 2 sprays DAILY PRN BR[place]TON 04/11/16 20:15 05/11/16 20:14 Acetaminophen/ Hydrocodone Bitart ([place] 5/325 Tab) 1 tab Q6H PRN PO 04/11/16 20:15 04/25/16 20:14 Isosorbide Mononitrate (Imdur Ext Rel Tab) 30 mg QAM PO 04/12/16 09:00 05/12/16 08:59 04/15/16 10:21 30 MG Lorazepam (Ativan Tab) 0.5 mg HS PRN PO 04/11/16 20:15 05/11/16 20:14 04/14/16 23:13 0.5 MG Senna/Docusate Sodium (Senokot S Tab) 2 tab HS PO 04/11/16 21:00 05/11/16 20:59 04/14/16 20:23 2 TAB Sertraline HCl (Zoloft Tab) 100 mg HS PO 04/11/16 21:00 05/11/16 20:59 04/14/16 20:23 100 MG Simvastatin (Zocor Tab) 20 mg HS PO 04/11/16 21:00 05/11/16 20:59 04/14/16 20:22 20 MG Tamsulosin HCl (Flomax Cap) 0.4 mg HS PO 04/11/16 21:00 05/11/16 20:59 04/14/16 20:23 0.4 MG Ascorbic Acid (Vitamin C Tab) 500 mg DAILY PO 04/12/16 09:00 05/12/16 08:59 04/15/16 10:23 500 MG Pentosan Polysulfate Sodium (Elmiron) 100 mg BID PO 04/11/16 21:00 05/11/16 20:59 04/15/16 10:21 100 MG Pantoprazole Sodium (Protonix Tab) 40 mg QAM PO 04/12/16 09:00 05/12/16 08:59 04/15/16 10:21 40 MG Diclofenac Sodium (Voltaren 1% Top Gel) 1 appln BID PRN EXT 04/11/16 20:30 05/11/16 20:29 Aztreonam 1 ea 1 ea UD PRN N/A 04/11/16 20:53 05/11/16 20:52 Aztreonam/Dextrose (Azactam IV/D5 100ml) 110 ml @ 110 mls/hr Q8H IV 04/12/16 01:00 04/22/16 00:59 04/15/16 16:25 110 MLS/HR Clonidine HCl (Catapres Tab) 0.1 mg Q6H PRN PO 04/13/16 00:15 05/13/16 00:14 04/13/16 02:02 0.1 MG Ipratropium [place] (Atrovent 0.02% 0.5MG/2.5ML Neb) 0.5 mg TIDR INH 04/13/16 21:00 05/13/16 20:59 04/15/16 14:00 0.5 MG Levalbuterol (Xopenex 1.25MG/ 3ML Neb) 1.25 mg TIDR INH 04/13/16 21:00 05/13/16 20:59 04/15/16 14:00 1.25 MG Review of Systems Review of Systems Constitutional: No chills, No fever Neurological: + dizzy, + numbness/tingling, No passing out Endocrine: + tired/sluggish, No excessive thirst, No too cold, No too hot Gastrointestinal: + abdominal pain, + indigestion, + nausea, No constipation, No diarrhea, No vomiting Cardiovascular: No chest pain Respiratory: + shortness of breath, + wheezing Male : + frequent urination, + infections, + kidney stones, + leaking urine, + nocturia more than once/night, + painful urination Physical Exam Vital Signs: Vital Signs Past 12 Hours Date Time Temp Pulse Resp B/P Pulse Ox O2 Delivery O2 Flow Rate FiO2 04/15/16 16:00 Nasal Cannula 3.0 04/15/16 15:30 37.0 79 16 135/70 97 Nasal Cannula 3.0 04/15/16 14:00 74 16 90 Room Air 04/15/16 10:52 90 96 04/15/16 10:00 Room Air 04/15/16 08:25 36.5 82 18 137/72 94 Nasal Cannula 3.0 04/15/16 07:11 84 16 97 Nasal Cannula 3.0 Physical Exam: General Appearance: WD/WN, no apparent distress, + obese Eyes: bilateral eyes normal inspection ENT: + pertinent finding (hard of hearing) Gastrointestinal: Abdomen: normal abdomen Renal: normal renal Hernia: pertinent finding (umbilical hernia, obese, not tender) Neurologic/Psychiatric: alert, normal mood/affect, oriented x 3 Assessment & Plan Assessment & Plan persistent dysuria I am stumped as the cause of his recurring dysuria His pyuria suggest infection yet culture data is not helpful. He feels like most courses of antibiotics help his dysuria as this hospitalization has done again. One could consider removing the kidney stones as possible source of urine infection but he is very high risk for surgery and the lack of a repeated recurrent strain of bacteria in the cultures when he has the dysuria make the renal stones less likely for the source. I apologized to pt and for being unable to fix his problems.
[2016-04-15] MEDS: SIMVASTATIN 20 MG TAB PO SCH (19:51)
[2016-04-15] MEDS: DOCUSATE SODIUM/SENNA 50/8.6MG TAB PO SCH (19:51)
[2016-04-15] MEDS: SERTRALINE HCL 100 MG TAB PO SCH (19:51)
[2016-04-15] MEDS: TAMSULOSIN HCL 0.4 MG CAP PO SCH (19:52)
[2016-04-15 20:15] VITALS: PULSE 74; O2SAT 94
--- NOTE | 2016-04-15 22:48 | Progress Note ---
Medicine Progress Note Date & Time of Visit: Apr 15, 2016 at 15:30 . Subjective Doing better. Confusion resolved. Generalized weakness improved. No fever. Dyspnea at baseline. No chest pain. No nausea, vomiting, diarrhea. Persistent urinary urgency, frequency, dysuria, but symptoms improved since initiating IV antibiotics. . Objective Last 8 Hrs Date Time Temp Pulse Resp B/P Pulse Ox O2 Delivery O2 Flow Rate FiO2 04/15/16 20:15 74 16 94 Nasal Cannula 3.0 04/15/16 16:00 Nasal Cannula 3.0 04/15/16 15:30 37.0 79 16 135/70 97 Nasal Cannula 3.0 Physical Exam: General- no distress Lungs- diffuse mild wheezing Heart- regular Abdomen- + BS, soft, nontender Extremities- no pretibial edema or calf tenderness Neuro- alert . Laboratory Results: Last 24 Hours Test 04/15/16 07:58 04/15/16 11:42 04/15/16 16:35 04/15/16 20:14 Bedside Glucose 120 mg/dl 167 mg/dl 166 mg/dl 232 mg/dl Assessment & Plan URINARY SYMPTOMS History of recurrent UTI's. Recurrent urgency and dysuria last week. Cath urine culture 04/08 grew mixed ashleigh. Initially treated with ciprofloxacin. Persistent symptoms 04/11. UA showed + leukocyte esterase, many WBCs, 10-[address] demonstrated bilateral renal calculi without ureteral obstruction, bilateral urothelial thickening within the collecting systems, persistent bladder wall thickening with adjacent infiltration consistent with cystitis. Repeat urine culture negative. Symptoms improving with IV antibiotics. Urology consulted. CONFUSION Altered mental status day of admission, most likely secondary to ciprofloxacin. Head CT did not show any acute process. Improved. WEAKNESS / AMBULATORY DYSFUNCTION Weakness, fall day of admission. Head CT did not show any acute process. ? generalized weakness secondary to UTI. PT/OT evaluations requested, patient initially declined. He agreed to undergo PT evaluation today. CAD No anginal symptoms. Continue aspirin, carvedilol, nitrates, statin. CHRONIC LEFT VENTRICULAR SYSTOLIC HEART FAILURE Compensated. COPD Stable. Continue nocturnal O2 + PRN with exertion. Nebs PRN. DM TYPE 2 Well-controlled. Hgb A1C = 6.0. FBS = 135. VTE PROPHYLAXIS SCD's. Ambulate. DISPOSITION PT recommending skilled care. Case Management consulted. Internal Medicine follow-up with Dr. Candelaria. . Current Inpatient Medications: Current Inpatient Medications Medications (Trade) Dose Ordered Sig/Tonia Route Start Time Stop Time Status Last Admin Dose Admin Acetaminophen (Tylenol Tab) 650 mg Q4H PRN PO 04/11/16 20:00 05/11/16 19:59 04/15/16 15:43 650 MG Ondansetron HCl (Zofran Inj) 4 mg Q6H PRN IV 04/11/16 20:00 05/11/16 19:59 Insulin Aspart (novoLOG ASPART) SLIDING SCALE If C... ACHS SC 04/11/16 21:00 05/11/16 20:59 04/15/16 20:41 3 UNITS Glucose (Glucose 40% Gel) 15-30 GRAMS 15 GRAMS... UD PRN PO 04/11/16 20:15 05/11/16 20:14 Glucose (Glucose Chew Tab) 4-8 Tablets 4 Tabl... UD PRN PO 04/11/16 20:15 05/11/16 20:14 Dextrose (Dextrose 50% 50ML Syringe) 25-50ML OF 50% DW IV FOR... UD PRN IV 04/11/16 20:15 05/11/16 20:14 Glucagon (Glucagon Inj) 1 mg UD PRN SQ 04/11/16 20:15 05/11/16 20:14 Aspirin (Ecotrin Tab) 81 mg DAILY PO 04/12/16 09:00 05/12/16 08:59 04/15/16 10:20 81 MG Carvedilol (Coreg Tab) 6.25 mg BID PO 04/11/16 21:00 05/11/16 20:59 04/15/16 19:52 6.25 MG Cholecalciferol (Vitamin D Tab) 1,000 inter.unit DAILY PO 04/12/16 09:00 05/12/16 08:59 04/15/16 10:22 1,000 INTER.UNIT Cyanocobalamin (Vitamin B-12 Tab) 1,000 mcg DAILY PO 04/12/16 09:00 05/12/16 08:59 04/15/16 10:20 1,000 MCG Fexofenadine HCl (Randa Tab) 180 mg DAILY PRN PO 04/11/16 20:15 05/11/16 20:14 Finasteride (Proscar Tab) 5 mg DAILY PO 04/12/16 09:00 05/12/16 08:59 04/15/16 10:22 5 MG Fish Oil ([place]-3 (Purified Fish Oil) Cap) 1 gm BID PO 04/11/16 21:00 05/11/16 20:59 04/15/16 19:52 1 GM Fluticasone Propionate (Flonase Nasal [place]) 2 sprays DAILY PRN [place] 04/11/16 20:15 05/11/16 20:14 Acetaminophen/ Hydrocodone Bitart ([place] 5/325 Tab) 1 tab Q6H PRN PO 04/11/16 20:15 04/25/16 20:14 Isosorbide Mononitrate (Imdur Ext Rel Tab) 30 mg QAM PO 04/12/16 09:00 05/12/16 08:59 04/15/16 10:21 30 MG Lorazepam (Ativan Tab) 0.5 mg HS PRN PO 04/11/16 20:15 05/11/16 20:14 04/14/16 23:13 0.5 MG Senna/Docusate Sodium (Senokot S Tab) 2 tab HS PO 04/11/16 21:00 05/11/16 20:59 04/15/16 19:51 2 TAB Sertraline HCl (Zoloft Tab) 100 mg HS PO 04/11/16 21:00 05/11/16 20:59 04/15/16 19:51 100 MG Simvastatin (Zocor Tab) 20 mg HS PO 04/11/16 21:00 05/11/16 20:59 04/15/16 19:51 20 MG Tamsulosin HCl (Flomax Cap) 0.4 mg HS PO 04/11/16 21:00 05/11/16 20:59 04/15/16 19:52 0.4 MG Ascorbic Acid (Vitamin C Tab) 500 mg DAILY PO 04/12/16 09:00 05/12/16 08:59 04/15/16 10:23 500 MG Pentosan Polysulfate Sodium (Elmiron) 100 mg BID PO 04/11/16 21:00 05/11/16 20:59 04/15/16 19:52 100 MG Pantoprazole Sodium (Protonix Tab) 40 mg QAM PO 04/12/16 09:00 05/12/16 08:59 04/15/16 10:21 40 MG Diclofenac Sodium (Voltaren 1% Top Gel) 1 appln BID PRN EXT 04/11/16 20:30 05/11/16 20:29 Aztreonam 1 ea 1 ea UD PRN N/A 04/11/16 20:53 05/11/16 20:52 Aztreonam/Dextrose (Azactam IV/D5 100ml) 110 ml @ 110 mls/hr Q8H IV 04/12/16 01:00 04/22/16 00:59 04/15/16 16:25 110 MLS/HR Clonidine HCl (Catapres Tab) 0.1 mg Q6H PRN PO 04/13/16 00:15 05/13/16 00:14 04/13/16 02:02 0.1 MG Ipratropium [place] (Atrovent 0.02% 0.5MG/2.5ML Neb) 0.5 mg TIDR INH 04/13/16 21:00 05/13/16 20:59 04/15/16 20:15 0.5 MG Levalbuterol (Xopenex 1.25MG/ 3ML Neb) 1.25 mg TIDR INH 04/13/16 21:00 05/13/16 20:59 04/15/16 20:18 1.25 MG
[2016-04-16 00:22] VITALS: BP 157/73; PULSE 75; TEMP 36.9; O2SAT 95
[2016-04-16] MEDS: AZTREONAM IV 1,000 MG in DEXTROSE 5% 100ML IV SCH ×3 (01:14→17:08)
[2016-04-16 06:57] VITALS: PULSE 74; O2SAT 94
[2016-04-16] MEDS: LEVALBUTEROL 1.25MG/3ML NEB INH SCH ×3 (06:57→20:12)
[2016-04-16] MEDS: IPRATROPIUM BROMIDE NEB SOLN 0.02% 2.5 ML VIAL INH SCH ×3 (06:57→20:12)
[2016-04-16 07:29] VITALS: BP 155/70; PULSE 80; TEMP 36.3; O2SAT 94
[2016-04-16 09:29] LABS: CREATININE 1.5 mg/dl (0.60-1.40)
[2016-04-16] MEDS: CHOLECALCIFEROL 1000 INTER.UNIT TAB PO SCH (09:35)
[2016-04-16] MEDS: PANTOprazole SOD 40 MG TAB PO SCH (09:35)
[2016-04-16] MEDS: OMEGA-3 (PURIFIED FISH OIL) 1 GM CAP PO SCH ×2 (09:35→20:44)
[2016-04-16] MEDS: CYANOCOBALAMIN 500 MCG TAB (VIT B-12) PO SCH (09:35)
[2016-04-16] MEDS: ASCORBIC ACID 500 MG TAB PO SCH (09:35)
[2016-04-16] MEDS: PENTOSAN POLYSULFATE SODIUM 100 MG CAP PO SCH ×2 (09:36→20:44)
[2016-04-16] MEDS: FINASTERIDE 5 MG TAB PO SCH (09:36)
[2016-04-16] MEDS: ISOSORBIDE MONONITRATE 30 MG TABCR PO SCH (09:36)
[2016-04-16] MEDS: ASPIRIN 81 MG ECTAB PO SCH (09:36)
[2016-04-16] MEDS: CARVEDILOL 6.25 MG TAB PO SCH ×2 (09:37→20:44)
[2016-04-16] MEDS: INSULIN ASPART 100 UNITS/ML 3 ML PEN SC SCH ×4 (09:40→20:48)
[2016-04-16 15:45] VITALS: BP 151/74; PULSE 70; TEMP 36.4; O2SAT 97
[2016-04-16] MEDS: ACETAMINOPHEN 325 MG TAB PO PRN (16:18)
[2016-04-16 20:12] VITALS: PULSE 76; O2SAT 96
[2016-04-16] MEDS: TAMSULOSIN HCL 0.4 MG CAP PO SCH (20:44)
[2016-04-16] MEDS: DOCUSATE SODIUM/SENNA 50/8.6MG TAB PO SCH (20:45)
[2016-04-16] MEDS: SERTRALINE HCL 100 MG TAB PO SCH (20:45)
[2016-04-16] MEDS: SIMVASTATIN 20 MG TAB PO SCH (20:45)
--- NOTE | 2016-04-16 23:11 | Progress Note ---
Medicine Progress Note Date & Time of Visit: Apr 16, 2016 at ~ 1900 . Subjective Doing fairly well. Patient feels that urinary symptoms definitely improved on IV aztreonam- less urgency and dysuria. No fever. No chest pain. Dyspnea at baseline. No nausea, vomiting, diarrhea. Still weak; not ambulating much. . Objective Last 8 Hrs Date Time Temp Pulse Resp B/P Pulse Ox O2 Delivery O2 Flow Rate FiO2 04/16/16 20:12 76 16 96 Nasal Cannula 3.0 04/16/16 15:45 97 Nasal Cannula 4.0 04/16/16 15:45 36.4 70 18 151/74 97 Nasal Cannula 4.0 Physical Exam: General- lying in bed, no distress Lungs- diffuse mild wheezing Heart- regular Abdomen- + BS, soft, nontender Extremities- no pretibial edema or calf tenderness Neuro- alert Skin- seborrheic dermatitis face . Laboratory Results: Last 24 Hours Test 04/16/16 07:37 04/16/16 07:52 04/16/16 11:34 04/16/16 16:12 Creatinine 1.50 mg/dl Est Creatinine Clear Calc Drug Dose 46.2 ml/min Estimated GFR () 49.5 Estimated GFR (Non- 42.7 Bedside Glucose 135 mg/dl 211 mg/dl 134 mg/dl Test 04/16/16 20:15 Bedside Glucose 185 mg/dl Assessment & Plan URINARY SYMPTOMS History of recurrent UTI's. Recurrent urgency and dysuria last week. Cath urine culture 04/08 grew mixed ashleigh. Initially treated with ciprofloxacin. Persistent symptoms 04/11. UA showed + leukocyte esterase, many WBCs, 10-[address] demonstrated bilateral renal calculi without ureteral obstruction, bilateral urothelial thickening within the collecting systems, persistent bladder wall thickening with adjacent infiltration consistent with cystitis. Repeat urine culture negative. Symptoms improving with IV antibiotics- continue x 7 days. Urology consulted. CONFUSION Altered mental status day of admission, most likely secondary to ciprofloxacin. Head CT did not show any acute process. Improved. WEAKNESS / AMBULATORY DYSFUNCTION Weakness, fall day of admission. Head CT did not show any acute process. ? generalized weakness secondary to UTI. PT / OT. CAD No anginal symptoms. Continue aspirin, carvedilol, nitrates, statin. CHRONIC LEFT VENTRICULAR SYSTOLIC HEART FAILURE Compensated. COPD Stable. Continue nocturnal O2 + PRN with exertion. Nebs PRN. DM TYPE 2 Well-controlled. Hgb A1C = 6.0. FBS = 135. SEBORRHEIC DERMATITIS Ketoconazole cream. VTE PROPHYLAXIS SCD's. Ambulate. DISPOSITION PT recommending skilled care. Case Management consulted. Internal Medicine follow-up with Dr. Candelaria. Components of this document were electronically copied and updated from the last documentation created by the undersigned in order to maintain a complete, accurate, and current record. Any portion of this document created by another author, if any, will be attributed to them. I certify that the record accurately reflects the patient's current status and services provided on the date of service. . Current Inpatient Medications: Current Inpatient Medications Medications (Trade) Dose Ordered Sig/Tonia Route Start Time Stop Time Status Last Admin Dose Admin Acetaminophen (Tylenol Tab) 650 mg Q4H PRN PO 04/11/16 20:00 05/11/16 19:59 04/16/16 16:18 650 MG Ondansetron HCl (Zofran Inj) 4 mg Q6H PRN IV 04/11/16 20:00 05/11/16 19:59 Insulin Aspart (novoLOG ASPART) SLIDING SCALE If C... ACHS SC 04/11/16 21:00 05/11/16 20:59 04/16/16 20:48 2 UNITS Glucose (Glucose 40% Gel) 15-30 GRAMS 15 GRAMS... UD PRN PO 04/11/16 20:15 05/11/16 20:14 Glucose (Glucose Chew Tab) 4-8 Tablets 4 Tabl... UD PRN PO 04/11/16 20:15 05/11/16 20:14 Dextrose (Dextrose 50% 50ML Syringe) 25-50ML OF 50% DW IV FOR... UD PRN IV 04/11/16 20:15 05/11/16 20:14 Glucagon (Glucagon Inj) 1 mg UD PRN SQ 04/11/16 20:15 05/11/16 20:14 Aspirin (Ecotrin Tab) 81 mg DAILY PO 04/12/16 09:00 05/12/16 08:59 04/16/16 09:36 81 MG Carvedilol (Coreg Tab) 6.25 mg BID PO 04/11/16 21:00 05/11/16 20:59 04/16/16 20:44 6.25 MG Cholecalciferol (Vitamin D Tab) 1,000 inter.unit DAILY PO 04/12/16 09:00 05/12/16 08:59 04/16/16 09:35 1,000 INTER.UNIT Cyanocobalamin (Vitamin B-12 Tab) 1,000 mcg DAILY PO 04/12/16 09:00 05/12/16 08:59 04/16/16 09:35 1,000 MCG Fexofenadine HCl (Randa Tab) 180 mg DAILY PRN PO 04/11/16 20:15 05/11/16 20:14 Finasteride (Proscar Tab) 5 mg DAILY PO 04/12/16 09:00 05/12/16 08:59 04/16/16 09:36 5 MG Fish Oil ([place]-3 (Purified Fish Oil) Cap) 1 gm BID PO 04/11/16 21:00 05/11/16 20:59 04/16/16 20:44 1 GM Fluticasone Propionate (Flonase Nasal [place]) 2 sprays DAILY PRN [place] 04/11/16 20:15 05/11/16 20:14 Acetaminophen/ Hydrocodone Bitart ([place] 5/325 Tab) 1 tab Q6H PRN PO 04/11/16 20:15 04/25/16 20:14 Isosorbide Mononitrate (Imdur Ext Rel Tab) 30 mg QAM PO 04/12/16 09:00 05/12/16 08:59 04/16/16 09:36 30 MG Lorazepam (Ativan Tab) 0.5 mg HS PRN PO 04/11/16 20:15 05/11/16 20:14 04/14/16 23:13 0.5 MG Senna/Docusate Sodium (Senokot S Tab) 2 tab HS PO 04/11/16 21:00 05/11/16 20:59 04/16/16 20:45 2 TAB Sertraline HCl (Zoloft Tab) 100 mg HS PO 04/11/16 21:00 05/11/16 20:59 04/16/16 20:45 100 MG Simvastatin (Zocor Tab) 20 mg HS PO 04/11/16 21:00 05/11/16 20:59 04/16/16 20:45 20 MG Tamsulosin HCl (Flomax Cap) 0.4 mg HS PO 04/11/16 21:00 05/11/16 20:59 04/16/16 20:44 0.4 MG Ascorbic Acid (Vitamin C Tab) 500 mg DAILY PO 04/12/16 09:00 05/12/16 08:59 04/16/16 09:35 500 MG Pentosan Polysulfate Sodium (Elmiron) 100 mg BID PO 04/11/16 21:00 05/11/16 20:59 04/16/16 20:44 100 MG Pantoprazole Sodium (Protonix Tab) 40 mg QAM PO 04/12/16 09:00 05/12/16 08:59 04/16/16 09:35 40 MG Diclofenac Sodium (Voltaren 1% Top Gel) 1 appln BID PRN EXT 04/11/16 20:30 05/11/16 20:29 Aztreonam 1 ea 1 ea UD PRN N/A 04/11/16 20:53 05/11/16 20:52 Aztreonam/Dextrose (Azactam IV/D5 100ml) 110 ml @ 110 mls/hr Q8H IV 04/12/16 01:00 04/22/16 00:59 04/16/16 17:08 110 MLS/HR Clonidine HCl (Catapres Tab) 0.1 mg Q6H PRN PO 04/13/16 00:15 05/13/16 00:14 04/13/16 02:02 0.1 MG Ipratropium [place] (Atrovent 0.02% 0.5MG/2.5ML Neb) 0.5 mg TIDR INH 04/13/16 21:00 05/13/16 20:59 04/16/16 20:12 0.5 MG Levalbuterol (Xopenex 1.25MG/ 3ML Neb) 1.25 mg TIDR INH 04/13/16 21:00 05/13/16 20:59 04/16/16 20:12 1.25 MG
[2016-04-16 23:31] VITALS: BP 144/67; PULSE 72; TEMP 36.5; O2SAT 98
[2016-04-17] VITALS (8 sets, daily range): BP systolic 119–164; BP diastolic 67–82; PULSE 58–87; TEMP 36.3–36.5; O2SAT 97–100
[2016-04-17] MEDS: AZTREONAM IV 1,000 MG in DEXTROSE 5% 100ML IV SCH ×3 (01:32→17:09)
[2016-04-17] MEDS: IPRATROPIUM BROMIDE NEB SOLN 0.02% 2.5 ML VIAL INH SCH ×3 (07:20→19:48)
[2016-04-17] MEDS: LEVALBUTEROL 1.25MG/3ML NEB INH SCH ×3 (07:21→19:48)
[2016-04-17] MEDS: PENTOSAN POLYSULFATE SODIUM 100 MG CAP PO SCH ×2 (08:50→20:42)
[2016-04-17] MEDS: ASPIRIN 81 MG ECTAB PO SCH (08:50)
[2016-04-17] MEDS: ISOSORBIDE MONONITRATE 30 MG TABCR PO SCH (08:51)
[2016-04-17] MEDS: FINASTERIDE 5 MG TAB PO SCH (08:51)
[2016-04-17] MEDS: PANTOprazole SOD 40 MG TAB PO SCH (08:51)
[2016-04-17] MEDS: OMEGA-3 (PURIFIED FISH OIL) 1 GM CAP PO SCH ×2 (08:51→20:44)
[2016-04-17] MEDS: CYANOCOBALAMIN 500 MCG TAB (VIT B-12) PO SCH (08:52)
[2016-04-17] MEDS: CARVEDILOL 6.25 MG TAB PO SCH ×2 (08:52→20:43)
[2016-04-17] MEDS: CHOLECALCIFEROL 1000 INTER.UNIT TAB PO SCH (08:52)
[2016-04-17] MEDS: ASCORBIC ACID 500 MG TAB PO SCH (08:52)
[2016-04-17] MEDS: INSULIN ASPART 100 UNITS/ML 3 ML PEN SC SCH ×4 (09:00→20:49)
[2016-04-17] MEDS: KETOCONAZOLE 2% CR 15 GM TUBE EXT SCH ×2 (09:41→20:41)
[2016-04-17] MEDS: ACETAMINOPHEN 325 MG TAB PO PRN (11:08)
[2016-04-17] MEDS: SIMVASTATIN 20 MG TAB PO SCH (20:44)
[2016-04-17] MEDS: SERTRALINE HCL 100 MG TAB PO SCH (20:44)
[2016-04-17] MEDS: TAMSULOSIN HCL 0.4 MG CAP PO SCH (20:44)
[2016-04-17] MEDS: DOCUSATE SODIUM/SENNA 50/8.6MG TAB PO SCH (20:45)
--- NOTE | 2016-04-17 20:50 | Progress Note ---
Medicine Progress Note Date & Time of Visit: Apr 17, 2016 at 16:45 . Subjective No fever. Urinary urgency and dysuria improved since admission, but persist. Noted gross hematuria on incontinence diaper today. No chest pain. Pulmonary status stable. No nausea, vomiting, diarrhea. . Objective Last 8 Hrs Date Time Temp Pulse Resp B/P Pulse Ox O2 Delivery O2 Flow Rate FiO2 04/17/16 19:49 87 16 99 Nasal Cannula 3.0 04/17/16 16:00 Nasal Cannula 3.0 04/17/16 15:51 36.4 69 16 119/67 97 Nasal Cannula 3.0 04/17/16 14:04 68 16 99 Nasal Cannula 3.0 Physical Exam: General-no distress Lungs- mild wheezing Heart- regular Abdomen- + BS, soft, nontender - dark brown urine on incontinence pad Extremities- no pretibial edema or calf tenderness Neuro- alert Skin- seborrheic dermatitis face improved . Laboratory Results: Last 24 Hours Test 04/17/16 07:50 04/17/16 11:34 04/17/16 16:26 04/17/16 20:04 Bedside Glucose 141 mg/dl 215 mg/dl 162 mg/dl 258 mg/dl Assessment & Plan URINARY SYMPTOMS History of recurrent UTI's. Recurrent urgency and dysuria last week. Cath urine culture 04/08 grew mixed ashleigh. Initially treated with ciprofloxacin. Persistent symptoms 04/11. UA showed + leukocyte esterase, many WBCs, 10-[address] demonstrated bilateral renal calculi without ureteral obstruction, bilateral urothelial thickening within the collecting systems, persistent bladder wall thickening with adjacent infiltration consistent with cystitis. Repeat urine culture negative. Symptoms improving with IV antibiotics- continue x 7 days. Urology consulted. Now with gross hematuria. Check repeat UA, urine culture, urine cytology. Hold aspirin due to gross hematuria. CONFUSION Altered mental status day of admission, most likely secondary to ciprofloxacin. Head CT did not show any acute process. Improved. WEAKNESS / AMBULATORY DYSFUNCTION Weakness, fall day of admission. Head CT did not show any acute process. ? generalized weakness secondary to UTI. PT / OT. CAD No anginal symptoms. Continue aspirin, carvedilol, nitrates, statin. CHRONIC LEFT VENTRICULAR SYSTOLIC HEART FAILURE Compensated. COPD Stable. Continue nocturnal O2 + PRN with exertion. Nebs PRN. DM TYPE 2 Well-controlled. Hgb A1C = 6.0. FBS = 141 SEBORRHEIC DERMATITIS Improved with ketoconazole cream. VTE PROPHYLAXIS SCD's. Ambulate. DISPOSITION PT recommending skilled care. Case Management consulted. Internal Medicine follow-up with Dr. Candelaria. Components of this document were electronically copied and updated from the last documentation created by the undersigned in order to maintain a complete, accurate, and current record. Any portion of this document created by another author, if any, will be attributed to them. I certify that the record accurately reflects the patient's current status and services provided on the date of service. . Current Inpatient Medications: Current Inpatient Medications Medications (Trade) Dose Ordered Sig/Tonia Route Start Time Stop Time Status Last Admin Dose Admin Acetaminophen (Tylenol Tab) 650 mg Q4H PRN PO 04/11/16 20:00 05/11/16 19:59 04/17/16 11:08 650 MG Ondansetron HCl (Zofran Inj) 4 mg Q6H PRN IV 04/11/16 20:00 05/11/16 19:59 Insulin Aspart (novoLOG ASPART) SLIDING SCALE If C... ACHS SC 04/11/16 21:00 05/11/16 20:59 04/17/16 20:49 3 UNITS Glucose (Glucose 40% Gel) 15-30 GRAMS 15 GRAMS... UD PRN PO 04/11/16 20:15 05/11/16 20:14 Glucose (Glucose Chew Tab) 4-8 Tablets 4 Tabl... UD PRN PO 04/11/16 20:15 05/11/16 20:14 Dextrose (Dextrose 50% 50ML Syringe) 25-50ML OF 50% DW IV FOR... UD PRN IV 04/11/16 20:15 05/11/16 20:14 Glucagon (Glucagon Inj) 1 mg UD PRN SQ 04/11/16 20:15 05/11/16 20:14 Aspirin (Ecotrin Tab) 81 mg DAILY PO 04/12/16 09:00 05/12/16 08:59 04/17/16 08:50 81 MG Carvedilol (Coreg Tab) 6.25 mg BID PO 04/11/16 21:00 05/11/16 20:59 04/17/16 20:43 6.25 MG Cholecalciferol (Vitamin D Tab) 1,000 inter.unit DAILY PO 04/12/16 09:00 05/12/16 08:59 04/17/16 08:52 1,000 INTER.UNIT Cyanocobalamin (Vitamin B-12 Tab) 1,000 mcg DAILY PO 04/12/16 09:00 05/12/16 08:59 04/17/16 08:52 1,000 MCG Fexofenadine HCl (Randa Tab) 180 mg DAILY PRN PO 04/11/16 20:15 05/11/16 20:14 Finasteride (Proscar Tab) 5 mg DAILY PO 04/12/16 09:00 05/12/16 08:59 04/17/16 08:51 5 MG Fish Oil ([place]-3 (Purified Fish Oil) Cap) 1 gm BID PO 04/11/16 21:00 05/11/16 20:59 04/17/16 20:44 1 GM Fluticasone Propionate (Flonase Nasal [place]) 2 sprays DAILY PRN [place] 04/11/16 20:15 05/11/16 20:14 Acetaminophen/ Hydrocodone Bitart ([place] 5/325 Tab) 1 tab Q6H PRN PO 04/11/16 20:15 04/25/16 20:14 Isosorbide Mononitrate (Imdur Ext Rel Tab) 30 mg QAM PO 04/12/16 09:00 05/12/16 08:59 04/17/16 08:51 30 MG Lorazepam (Ativan Tab) 0.5 mg HS PRN PO 04/11/16 20:15 05/11/16 20:14 04/14/16 23:13 0.5 MG Senna/Docusate Sodium (Senokot S Tab) 2 tab HS PO 04/11/16 21:00 05/11/16 20:59 04/17/16 20:45 2 TAB Sertraline HCl (Zoloft Tab) 100 mg HS PO 04/11/16 21:00 05/11/16 20:59 04/17/16 20:44 100 MG Simvastatin (Zocor Tab) 20 mg HS PO 04/11/16 21:00 05/11/16 20:59 04/17/16 20:44 20 MG Tamsulosin HCl (Flomax Cap) 0.4 mg HS PO 04/11/16 21:00 05/11/16 20:59 04/17/16 20:44 0.4 MG Ascorbic Acid (Vitamin C Tab) 500 mg DAILY PO 04/12/16 09:00 05/12/16 08:59 04/17/16 08:52 500 MG Pentosan Polysulfate Sodium (Elmiron) 100 mg BID PO 04/11/16 21:00 05/11/16 20:59 04/17/16 20:42 100 MG Pantoprazole Sodium (Protonix Tab) 40 mg QAM PO 04/12/16 09:00 05/12/16 08:59 04/17/16 08:51 40 MG Diclofenac Sodium (Voltaren 1% Top Gel) 1 appln BID PRN EXT 04/11/16 20:30 05/11/16 20:29 Aztreonam 1 ea 1 ea UD PRN N/A 04/11/16 20:53 05/11/16 20:52 Aztreonam/Dextrose (Azactam IV/D5 100ml) 110 ml @ 110 mls/hr Q8H IV 04/12/16 01:00 04/22/16 00:59 04/17/16 17:09 110 MLS/HR Clonidine HCl (Catapres Tab) 0.1 mg Q6H PRN PO 04/13/16 00:15 05/13/16 00:14 04/13/16 02:02 0.1 MG Ipratropium [place] (Atrovent 0.02% 0.5MG/2.5ML Neb) 0.5 mg TIDR INH 04/13/16 21:00 05/13/16 20:59 04/17/16 19:48 0.5 MG Levalbuterol (Xopenex 1.25MG/ 3ML Neb) 1.25 mg TIDR INH 04/13/16 21:00 05/13/16 20:59 04/17/16 19:48 1.25 MG Ketoconazole (Nizoral 2% Crm) 1 appln BID EXT 04/17/16 09:00 04/27/16 08:59 04/17/16 20:41 1 APPLN
[2016-04-18] MEDS: AZTREONAM IV 1,000 MG in DEXTROSE 5% 100ML IV SCH ×3 (00:38→17:43)
[2016-04-18] MEDS: LORAZEPAM 0.5 MG TAB PO PRN (00:58)
[2016-04-18] MEDS ORDERED: LIDOCAINE HCL 2% JELLY 30 ML TUBE EXT ONE (07:39)
[2016-04-18] MEDS: LEVALBUTEROL 1.25MG/3ML NEB INH SCH ×2 (07:52→19:36)
[2016-04-18] MEDS: IPRATROPIUM BROMIDE NEB SOLN 0.02% 2.5 ML VIAL INH SCH ×2 (07:52→19:36)
[2016-04-18 07:53] VITALS: PULSE 85; O2SAT 99
[2016-04-18 07:55] LABS: HEMATOCRIT 39.2 % (42-52); MEAN CELL VOLUME 90.7 fL (80-100); MEAN CORPUSCULAR HEMOGLOBIN 28.7 pg (25-34); MEAN CORPUSCULAR HGB CONC 31.6 g/dl (32-36); PLATELET COUNT 209 K/uL (130-400); RED BLOOD COUNT 4.32 M/uL (4.7-6.1); WHITE BLOOD COUNT 7.78 K/uL (4.8-10.8)
[2016-04-18 08:28] LABS: BUN/CREATININE RATIO 16.7 (10-20); CALCIUM 8.8 mg/dl (8.5-10.1); CREATININE 1.5 mg/dl (0.60-1.40)
[2016-04-18 08:31] LABS: MANUAL MICROSCOPIC REQUIRED? YES; URINE APPEARANCE CLOUDY (CLEAR); URINE BILIRUBIN NEG (NEG); URINE COLOR RED; URINE NITRITE NEG (NEG); URINE SPECIFIC GRAVITY 1.025 (1.000-1.030); UROBILINOGEN NEG (NEG)
[2016-04-18 08:33] LABS: REVIEW REQ? NO
[2016-04-18 08:47] LABS: URINE RBC >30 /hpf (0-4); URINE WBC >30 /hpf (0-5)
[2016-04-18 08:48] VITALS: BP 132/77; PULSE 82; TEMP 36.6; O2SAT 97
[2016-04-18 08:48] LABS: URINE BACTERIA 2+ (NEG)
[2016-04-18] MEDS: CHOLECALCIFEROL 1000 INTER.UNIT TAB PO SCH (09:18)
[2016-04-18] MEDS: ISOSORBIDE MONONITRATE 30 MG TABCR PO SCH (09:18)
[2016-04-18] MEDS: PANTOprazole SOD 40 MG TAB PO SCH (09:19)
[2016-04-18] MEDS: CYANOCOBALAMIN 500 MCG TAB (VIT B-12) PO SCH (09:19)
[2016-04-18] MEDS: OMEGA-3 (PURIFIED FISH OIL) 1 GM CAP PO SCH (09:19)
[2016-04-18] MEDS: FINASTERIDE 5 MG TAB PO SCH (09:19)
[2016-04-18] MEDS: ASCORBIC ACID 500 MG TAB PO SCH (09:19)
[2016-04-18] MEDS: CARVEDILOL 6.25 MG TAB PO SCH ×2 (09:19→21:31)
[2016-04-18] MEDS: PENTOSAN POLYSULFATE SODIUM 100 MG CAP PO SCH ×2 (09:19→21:31)
[2016-04-18] MEDS: KETOCONAZOLE 2% CR 15 GM TUBE EXT SCH ×2 (09:20→21:30)
[2016-04-18] MEDS: INSULIN ASPART 100 UNITS/ML 3 ML PEN SC SCH ×4 (09:22→21:44)
[2016-04-18 15:42] VITALS: BP 130/70; PULSE 77; TEMP 36.3; O2SAT 92
[2016-04-18 19:37] VITALS: PULSE 79; O2SAT 98
[2016-04-18] MEDS: SIMVASTATIN 20 MG TAB PO SCH (21:32)
[2016-04-18] MEDS: SERTRALINE HCL 100 MG TAB PO SCH (21:32)
[2016-04-18] MEDS: DOCUSATE SODIUM/SENNA 50/8.6MG TAB PO SCH (21:32)
[2016-04-18] MEDS: TAMSULOSIN HCL 0.4 MG CAP PO SCH (21:33)
--- NOTE | 2016-04-18 21:36 | Progress Note ---
Medicine Progress Note Date & Time of Visit: Apr 18, 2016 at 11:20 . Subjective No fever. Still passing dark urine. Chronic urinary incontinence; minimal residual per straight cath. No dysuria. No chest pain. Chronic dyspnea at baseline. . Objective Last 8 Hrs Date Time Temp Pulse Resp B/P Pulse Ox O2 Delivery O2 Flow Rate FiO2 04/18/16 19:37 79 16 98 Nasal Cannula 3.0 04/18/16 16:00 Nasal Cannula 3.0 04/18/16 15:42 36.3 77 20 130/70 92 Nasal Cannula 3.0 Physical Exam: General-no distress Lungs- mild wheezing Heart- regular Abdomen- + BS, soft, nontender Extremities- no pretibial edema or calf tenderness Neuro- alert . Laboratory Results: Last 24 Hours Test 04/18/16 00:00 04/18/16 07:45 04/18/16 08:05 04/18/16 11:54 Urine Color RED Urine Appearance CLOUDY Urine pH 6.0 Urine Specific [place] 1.025 Urine Protein 2+ Urine Glucose (UA) NEG Urine Ketones NEG Urine Occult Blood 3+ Urine Nitrite NEG Urine Bilirubin NEG Urine Urobilinogen NEG Urine Leukocyte Esterase LARGE Urine RBC >30 /hpf Urine WBC >30 /hpf Urine Epithelial Cells 0-5 /lpf Urine Bacteria 2+ White Blood Count 7.78 K/uL Red Blood Count 4.32 M/uL Hemoglobin 12.4 g/dL Hematocrit 39.2 % Mean Corpuscular Volume 90.7 fL Mean Corpuscular Hemoglobin 28.7 pg Mean Corpuscular Hemoglobin Concent 31.6 g/dl RDW Standard Deviation 45.5 fL RDW Coefficient of Variation 13.7 % Platelet Count 209 K/uL Mean Platelet Volume 9.0 fL Sodium Level 144 mmol/L Potassium Level 4.0 mmol/L Chloride Level 107 mmol/L Carbon Dioxide Level 29 mmol/L Anion Gap 8.0 mmol/L Blood Urea Nitrogen 25 mg/dl Creatinine 1.50 mg/dl Est Creatinine Clear Calc Drug Dose 46.2 ml/min Estimated GFR () 49.5 Estimated GFR (Non- 42.7 BUN/Creatinine Ratio 16.7 Random Glucose 138 mg/dl Calcium Level 8.8 mg/dl Bedside Glucose 135 mg/dl 204 mg/dl Test 04/18/16 16:31 04/18/16 20:34 Bedside Glucose 150 mg/dl 162 mg/dl Date/Time Source Procedure Growth Status 04/18/16 00:00 Urine,Catheterized Urine Culture Pending Received Assessment & Plan URINARY SYMPTOMS History of recurrent UTI's. Recurrent urgency and dysuria last week. Cath urine culture as outpatient 04/08/16 grew mixed ashleigh. Initially treated with ciprofloxacin. Persistent symptoms 04/11. UA showed + leukocyte esterase, many WBCs, 10-[address] demonstrated bilateral renal calculi without ureteral obstruction, bilateral urothelial thickening within the collecting systems, persistent bladder wall thickening with adjacent infiltration consistent with cystitis. Repeat urine culture negative. Urology consulted. Symptoms improved somewhat with IV aztreonam. Developed gross hematuria 04/17/15. Hold aspirin and DC fish oil. Case discussed with Urology. Has received 7-8 days of aztreonam - will DC. ? atypical urinary tract pathogen. Consult ID. CONFUSION Altered mental status day of admission, most likely secondary to ciprofloxacin. Head CT did not show any acute process. Improved. WEAKNESS / AMBULATORY DYSFUNCTION Weakness, fall day of admission. Head CT did not show any acute process. ? generalized weakness secondary to UTI. PT / OT. CAD No anginal symptoms. Continue aspirin, carvedilol, nitrates, statin. CHRONIC LEFT VENTRICULAR SYSTOLIC HEART FAILURE Compensated. COPD Stable. Continue nocturnal O2 + PRN with exertion. Nebs PRN. DM TYPE 2 Well-controlled. Hgb A1C = 6.0. FBS = 135 SEBORRHEIC DERMATITIS Improved with ketoconazole cream. VTE PROPHYLAXIS SCD's. Ambulate. DISPOSITION PT recommending skilled care. Case Management consulted. Internal Medicine follow-up with Dr. Candelaria. Components of this document were electronically copied and updated from the last documentation created by the undersigned in order to maintain a complete, accurate, and current record. Any portion of this document created by another author, if any, will be attributed to them. I certify that the record accurately reflects the patient's current status and services provided on the date of service. . Current Inpatient Medications: Current Inpatient Medications Medications (Trade) Dose Ordered Sig/Tonia Route Start Time Stop Time Status Last Admin Dose Admin Acetaminophen (Tylenol Tab) 650 mg Q4H PRN PO 04/11/16 20:00 05/11/16 19:59 04/17/16 11:08 650 MG Ondansetron HCl (Zofran Inj) 4 mg Q6H PRN IV 04/11/16 20:00 05/11/16 19:59 Insulin Aspart (novoLOG ASPART) SLIDING SCALE If C... ACHS SC 04/11/16 21:00 05/11/16 20:59 04/18/16 17:38 4 UNITS Glucose (Glucose 40% Gel) 15-30 GRAMS 15 GRAMS... UD PRN PO 04/11/16 20:15 05/11/16 20:14 Glucose (Glucose Chew Tab) 4-8 Tablets 4 Tabl... UD PRN PO 04/11/16 20:15 05/11/16 20:14 Dextrose (Dextrose 50% 50ML Syringe) 25-50ML OF 50% DW IV FOR... UD PRN IV 04/11/16 20:15 05/11/16 20:14 Glucagon (Glucagon Inj) 1 mg UD PRN SQ 04/11/16 20:15 05/11/16 20:14 Aspirin (Ecotrin Tab) 81 mg DAILY PO 04/12/16 09:00 05/12/16 08:59 Future Hold 04/17/16 08:50 81 MG Carvedilol (Coreg Tab) 6.25 mg BID PO 04/11/16 21:00 05/11/16 20:59 04/18/16 09:19 6.25 MG Cholecalciferol (Vitamin D Tab) 1,000 inter.unit DAILY PO 04/12/16 09:00 05/12/16 08:59 04/18/16 09:18 1,000 INTER.UNIT Cyanocobalamin (Vitamin B-12 Tab) 1,000 mcg DAILY PO 04/12/16 09:00 05/12/16 08:59 04/18/16 09:19 1,000 MCG Fexofenadine HCl (Randa Tab) 180 mg DAILY PRN PO 04/11/16 20:15 05/11/16 20:14 Finasteride (Proscar Tab) 5 mg DAILY PO 04/12/16 09:00 05/12/16 08:59 04/18/16 09:19 5 MG Fish Oil ([place]-3 (Purified Fish Oil) Cap) 1 gm BID PO 04/11/16 21:00 05/11/16 20:59 04/18/16 09:19 1 GM Fluticasone Propionate (Flonase Nasal [place]) 2 sprays DAILY PRN [place] 04/11/16 20:15 05/11/16 20:14 Acetaminophen/ Hydrocodone Bitart ([place] 5/325 Tab) 1 tab Q6H PRN PO 04/11/16 20:15 04/25/16 20:14 04/18/16 06:32 1 TAB Isosorbide Mononitrate (Imdur Ext Rel Tab) 30 mg QAM PO 04/12/16 09:00 05/12/16 08:59 04/18/16 09:18 30 MG Lorazepam (Ativan Tab) 0.5 mg HS PRN PO 04/11/16 20:15 05/11/16 20:14 04/18/16 00:58 0.5 MG Senna/Docusate Sodium (Senokot S Tab) 2 tab HS PO 04/11/16 21:00 05/11/16 20:59 04/17/16 20:45 2 TAB Sertraline HCl (Zoloft Tab) 100 mg HS PO 04/11/16 21:00 05/11/16 20:59 04/17/16 20:44 100 MG Simvastatin (Zocor Tab) 20 mg HS PO 04/11/16 21:00 05/11/16 20:59 04/17/16 20:44 20 MG Tamsulosin HCl (Flomax Cap) 0.4 mg HS PO 04/11/16 21:00 05/11/16 20:59 04/17/16 20:44 0.4 MG Ascorbic Acid (Vitamin C Tab) 500 mg DAILY PO 04/12/16 09:00 05/12/16 08:59 04/18/16 09:19 500 MG Pentosan Polysulfate Sodium (Elmiron) 100 mg BID PO 04/11/16 21:00 05/11/16 20:59 04/18/16 09:19 100 MG Pantoprazole Sodium (Protonix Tab) 40 mg QAM PO 04/12/16 09:00 05/12/16 08:59 04/18/16 09:19 40 MG Diclofenac Sodium (Voltaren 1% Top Gel) 1 appln BID PRN EXT 04/11/16 20:30 05/11/16 20:29 Aztreonam 1 ea 1 ea UD PRN N/A 04/11/16 20:53 05/11/16 20:52 Aztreonam/Dextrose (Azactam IV/D5 100ml) 110 ml @ 110 mls/hr Q8H IV 04/12/16 01:00 04/22/16 00:59 04/18/16 17:43 110 MLS/HR Clonidine HCl (Catapres Tab) 0.1 mg Q6H PRN PO 04/13/16 00:15 05/13/16 00:14 04/13/16 02:02 0.1 MG Ipratropium [place] (Atrovent 0.02% 0.5MG/2.5ML Neb) 0.5 mg TIDR INH 04/13/16 21:00 05/13/16 20:59 04/18/16 19:36 0.5 MG Levalbuterol (Xopenex 1.25MG/ 3ML Neb) 1.25 mg TIDR INH 04/13/16 21:00 05/13/16 20:59 04/18/16 19:36 1.25 MG Ketoconazole (Nizoral 2% Crm) 1 appln BID EXT 04/17/16 09:00 04/27/16 08:59 04/18/16 09:20 1 APPLN
[2016-04-19] VITALS (7 sets, daily range): BP systolic 135–158; BP diastolic 72–75; PULSE 75–87; TEMP 36.3–36.7; O2SAT 91–97
[2016-04-19] MEDS: LORAZEPAM 0.5 MG TAB PO PRN (02:30)
[2016-04-19] MEDS: ACETAMINOPHEN 325 MG TAB PO PRN (02:30)
[2016-04-19] MEDS: IPRATROPIUM BROMIDE NEB SOLN 0.02% 2.5 ML VIAL INH SCH ×3 (07:12→20:10)
[2016-04-19] MEDS: LEVALBUTEROL 1.25MG/3ML NEB INH SCH ×3 (07:12→20:10)
[2016-04-19] MEDS: KETOCONAZOLE 2% CR 15 GM TUBE EXT SCH ×2 (08:32→21:44)
[2016-04-19] MEDS: FINASTERIDE 5 MG TAB PO SCH (08:33)
[2016-04-19] MEDS: CARVEDILOL 6.25 MG TAB PO SCH ×2 (08:33→21:46)
[2016-04-19] MEDS: CYANOCOBALAMIN 500 MCG TAB (VIT B-12) PO SCH (08:33)
[2016-04-19] MEDS: ISOSORBIDE MONONITRATE 30 MG TABCR PO SCH (08:33)
[2016-04-19] MEDS: PENTOSAN POLYSULFATE SODIUM 100 MG CAP PO SCH ×2 (08:34→21:47)
[2016-04-19] MEDS: CHOLECALCIFEROL 1000 INTER.UNIT TAB PO SCH (08:34)
[2016-04-19] MEDS: ASCORBIC ACID 500 MG TAB PO SCH (08:34)
[2016-04-19] MEDS: PANTOprazole SOD 40 MG TAB PO SCH (08:34)
[2016-04-19] MEDS: INSULIN ASPART 100 UNITS/ML 3 ML PEN SC SCH ×4 (08:45→21:42)
[2016-04-19] MEDS ORDERED: FLUCONAZOLE 100 MG TAB PO ONE (09:20)
--- NOTE | 2016-04-19 10:58 | Medical Consult ---
Consultation Date of Consultation: Apr 19, 2016. Attending Physician: Christo Low M.D. Reason for Consultation: Recurrent UTI History of Present Illness Patient is an 81-year-old male who presents the emergency department with complaints of altered mental status. The patient recently was treated for urinary tract infection with Cipro and had still been experiencing burning with urination at home. He states that he has had multiple recurrent urinary tract infections in the past. He is unsure of why he continues to get these urinary tract infections. He does have history of kidney stones which she has previously had lithotripsy for. He states that he is not having any fever, vomiting, nausea, or diarrhea. He states that he has had some vague abdominal pain along with pain throughout the rest of his body on an off. Upon review of the patient's past medical record, it was noted that he has had Mei albicans in his urine many times in the past 3 years. He states that he has previously been treated with short courses of fluconazole or antibiotics. Since current admission, the patient did have blood cultures which showed no growth. His initial urine culture showed no growth, but repeat urine culture from yesterday is growing Mei albicans. The patient has had a white blood cell count within normal limits. His creatinine yesterday was 1.50. The patient was placed on p.o. fluconazole today. He did have a CT of the abdomen which showed a bilateral nephrolithiasis, mild dilatation of both ureters, urothelial thickening, and persistent bladder wall thickening. Past Medical/Surgical History Medical Problems: (1) Altered mental status Status: Acute (2) Change in mental status Status: Acute (3) Confusion Status: Acute (4) Dehydration Status: Acute (5) Failure of outpatient treatment Status: Acute (6) UTI (urinary tract infection) Status: Acute (7) Weakness Status: Acute (8) Weakness Status: Acute Medical Problems: (1) Basal cell carcinoma (2) BPH (benign prostatic hyperplasia) (3) CAD (coronary artery disease) (4) Chronic systolic (congestive) heart failure (5) Confusion (6) COPD, severe (7) Depression (8) Diabetes mellitus (9) Dyslipidemia (10) Esophageal stricture (11) GERD (gastroesophageal reflux disease) (12) High degree atrioventricular block (13) Ischemic cardiomyopathy (14) DENISHA (obstructive sleep apnea) (15) Renal artery stenosis (16) UTI (urinary tract infection) Surgical Problems: (1) H/O hand surgery (2) S/P cataract surgery (3) S/P cholecystectomy (4) S/P coronary artery stent placement (5) S/P sinus surgery (6) Status post total knee replacement, right Family History Cardiac disorder FATHER BROTHER SISTER Diabetes mellitus BROTHER SISTER Hypertension FATHER SISTER Noncontributory Social History Smoking Status: Former Smoker Alcohol Use: none Marital Status: Housing Status: lives with significant other Occupation Status: retired Allergies Coded Allergies: Penicillins (Verified Allergy, Mild, RASH, 11/19/15) Clindamycin (Verified Allergy, Unknown, UNKNOWN, 11/19/15) Morphine (Verified Adverse Reaction, Intermediate, mental status change, ) Oxycodone (Verified Adverse Reaction, Mild, CONFUSION, 11/19/15) Home Medications Reported Home Medications Medications Dose Route/Sig Max Daily Dose Days Date Category Dose Instructions [place] 5MG/325MG (Acetaminophen/Hydrocodone Bitart) Tab 1 Tablet PO Q6H PRN 04/11/16 Reported Vitamin D3 (Cholecalciferol) 1,000 Unit Tab 1 Tab PO DAILY 30 04/11/16 Reported Coreg (Carvedilol) 6.25 Mg Tab 6.25 Mg PO BID 04/11/16 Reported Prilosec (Omeprazole) 20 Mg Cap 20 Mg PO DAILY 04/11/16 Reported TAKE THIS MEDICATION ONCE DAILY 30-60 MINUTES BEFORE FIRST MEAL OF THE DAY Qc Stool Softener Plus La (Sennosides-Docusate Sodium) 1 Tab Tab 2 Tabs PO HS 04/11/16 Reported Sertraline HCl 100 Mg Tab 100 Mg PO HS 04/11/16 Reported Lorazepam 0.5 Mg Tab 0.5 Mg PO HS PRN 04/11/16 Reported Finasteride 5 Mg Tab 5 Mg PO DAILY 04/11/16 Reported Simvastatin 20 Mg Tab 20 Mg PO HS 04/11/16 Reported Isosorbide Mononitrate ER (Isosorbide Mononitrate) 30 Mg Tabcr 30 Mg PO QAM 04/11/16 Reported Cipro (Ciprofloxacin) 250 Mg Tab 250 Mg PO Q12 04/11/16 Reported PRESCRIBED 04/08/2016, TAKE DIRECTED UNTIL GONE Tamsulosin HCl 0.4 Mg Cap 0.4 Mg PO HS 04/11/16 Reported Oxygen Gas 3 Liters NA UD 11/19/15 Reported HS and PRN activity Elmiron (P[place]os[place] Polysulfate Sodium) 100 Mg Cap 100 Mg PO BID 11/19/15 Reported Levalbuterol HCl (Levalbuterol) 1.25 Mg/3 Ml Nebu 1 Vial INH QID PRN 07/14/15 Reported Vitamin C (Ascorbic Acid) 500 Mg Tab 500 Mg PO DAILY 06/26/15 Reported Atrovent 0.02% Soln (Ipratropium [place]) 2.5 Ml Nebu 2.5 Ml NEB QID PRN 06/26/15 Reported Potassium Chloride Er (Potassium Chloride) 10 Meq Tab 10 Meq PO DAILY PRN 06/26/15 Reported Glucophage (Metformin Hcl) 1,000 Mg Tab 1,000 Mg PO BID 02/24/15 Reported TAKE THIS MEDICATION WITH BREAKFAST AND EVENING MEAL Aspirin Ec (Aspirin) 81 Mg Tab 81 Mg PO DAILY 02/24/15 Reported [place] (Saw [place] (Serenoa Repens)) 500 Mg Cap 1,000 Mg PO BID 01/05/15 Reported Glucotrol Xl (Glipizide) 5 Mg Tab 5 Mg PO QAM 01/05/15 Reported Flonase Allergy Relief (Fluticasone Propionate (Nasal)) 50 Mcg/Act Spr 2 Sprays [place] DAILY PRN 01/05/15 Reported Lasix (Furosemide) 20 Mg Tab 20 Mg PO DAILY PRN 06/09/14 Reported Vitamin B-12 (Cyanocobalamin) 1,000 Mcg Tab 1,000 Mcg PO DAILY 07/12/12 Reported Randa (Fexofenadine Hcl) 180 Mg Tab 180 Mg PO DAILY PRN 07/11/12 Reported [place]-3 (Fish Oil) 1 Ea Cap 1 Cap PO BID 05/24/11 Reported Current Inpatient Medications Current Inpatient Medications Medications (Trade) Dose Ordered Sig/Tonia Route Start Time Stop Time Status Last Admin Dose Admin Acetaminophen (Tylenol Tab) 650 mg Q4H PRN PO 04/11/16 20:00 05/11/16 19:59 04/19/16 02:30 650 MG Ondansetron HCl (Zofran Inj) 4 mg Q6H PRN IV 04/11/16 20:00 05/11/16 19:59 Insulin Aspart (novoLOG ASPART) SLIDING SCALE If C... ACHS SC 04/11/16:00 05/11/16 20:59 04/19/16 08:45 4 UNITS Glucose (Glucose 40% Gel) 15-30 GRAMS 15 GRAMS... UD PRN PO 04/11/16 20:15 05/11/16 20:14 Glucose (Glucose Chew Tab) 4-8 Tablets 4 Tabl... UD PRN PO 04/11/16 20:15 05/11/16 20:14 Dextrose (Dextrose 50% 50ML Syringe) 25-50ML OF 50% DW IV FOR... UD PRN IV 04/11/16 20:15 05/11/16 20:14 Glucagon (Glucagon Inj) 1 mg UD PRN SQ 04/11/16 20:15 05/11/16 20:14 Aspirin (Ecotrin Tab) 81 mg DAILY PO 04/12/16 09:00 05/12/16 08:59 Future Hold 04/17/16 08:50 81 MG Carvedilol (Coreg Tab) 6.25 mg BID PO 04/11/16 21:00 05/11/16 20:59 04/19/16 08:33 6.25 MG Cholecalciferol (Vitamin D Tab) 1,000 inter.unit DAILY PO 04/12/16 09:00 05/12/16 08:59 04/19/16 08:34 1,000 INTER.UNIT Cyanocobalamin (Vitamin B-12 Tab) 1,000 mcg DAILY PO 04/12/16 09:00 05/12/16 08:59 04/19/16 08:33 1,000 MCG Fexofenadine HCl (Randa Tab) 180 mg DAILY PRN PO 04/11/16 20:15 05/11/16 20:14 Finasteride (Proscar Tab) 5 mg DAILY PO 04/12/16 09:00 05/12/16 08:59 04/19/16 08:33 5 MG Fluticasone Propionate (Flonase Nasal [place]) 2 sprays DAILY PRN [place]TON 04/11/16 20:15 05/11/16 20:14 Acetaminophen/ Hydrocodone Bitart ([place] 5/325 Tab) 1 tab Q6H PRN PO 04/11/16 20:15 04/25/16 20:14 04/18/16 06:32 1 TAB Isosorbide Mononitrate (Imdur Ext Rel Tab) 30 mg QAM PO 04/12/16 09:00 05/12/16 08:59 04/19/16 08:33 30 MG Lorazepam (Ativan Tab) 0.5 mg HS PRN PO 04/11/16 20:15 05/11/16 20:14 04/19/16 02:30 0.5 MG Senna/Docusate Sodium (Senokot S Tab) 2 tab HS PO 04/11/16 21:00 05/11/16 20:59 04/18/16 21:32 2 TAB Sertraline HCl (Zoloft Tab) 100 mg HS PO 04/11/16 21:00 05/11/16 20:59 04/18/16 21:32 100 MG Simvastatin (Zocor Tab) 20 mg HS PO 04/11/16 21:00 05/11/16 20:59 04/18/16 21:32 20 MG Tamsulosin HCl (Flomax Cap) 0.4 mg HS PO 04/11/16 21:00 05/11/16 20:59 04/18/16 21:33 0.4 MG Ascorbic Acid (Vitamin C Tab) 500 mg DAILY PO 04/12/16 09:00 05/12/16 08:59 04/19/16 08:34 500 MG Pentosan Polysulfate Sodium (Elmiron) 100 mg BID PO 04/11/16 21:00 05/11/16 20:59 04/19/16 08:34 100 MG Pantoprazole Sodium (Protonix Tab) 40 mg QAM PO 04/12/16 09:00 05/12/16 08:59 04/19/16 08:34 40 MG Diclofenac Sodium (Voltaren 1% Top Gel) 1 appln BID PRN EXT 04/11/16 20:30 05/11/16 20:29 Clonidine HCl (Catapres Tab) 0.1 mg Q6H PRN PO 04/13/16 00:15 05/13/16 00:14 04/13/16 02:02 0.1 MG Ipratropium [place] (Atrovent 0.02% 0.5MG/2.5ML Neb) 0.5 mg TIDR INH 04/13/16 21:00 05/13/16 20:59 04/19/16 07:12 0.5 MG Levalbuterol (Xopenex 1.25MG/ 3ML Neb) 1.25 mg TIDR INH 04/13/16 21:00 05/13/16 20:59 04/19/16 07:12 1.25 MG Ketoconazole (Nizoral 2% Crm) 1 appln BID EXT 04/17/16 09:00 04/27/16 08:59 04/19/16 08:32 1 APPLN Fluconazole (Diflucan Tab) 100 mg QAM PO 04/20/16 09:00 04/30/16 08:59 Review of Systems Constitutional: + chills, + sweats, + weakness, No fever Eyes: No worsening of vision ENT: + hearing loss (chronic) Respiratory: + shortness of breath (chronic) Cardiovascular: No chest pain Abdomen: + pain, No diarrhea Musculoskeletal: + problem reported (multiple complaints of pain- nonspecific) Genitourinary - Male: No dysuria Integumentary: No itch, No rash Physical Exam Date Time Temp Pulse Resp B/P Pulse Ox O2 Delivery O2 Flow Rate FiO2 04/19/16 08:45 Nasal Cannula 3.0 04/19/16 07:26 36.3 75 20 135/75 97 Nasal Cannula 3.0 04/19/16 07:12 87 16 96 Nasal Cannula 3.0 04/19/16 00:00 36.7 78 19 158/75 94 Room Air 04/18/16 19:37 79 16 98 Nasal Cannula 3.0 04/18/16 16:00 Nasal Cannula 3.0 04/18/16 15:42 36.3 77 20 130/70 92 Nasal Cannula 3.0 General Appearance: no apparent distress, + obese Head: normocephalic, atraumatic Eyes: normal inspection, sclerae normal ENT: hearing grossly normal Neck: supple, trachea midline Respiratory/Chest: chest non-tender, no respiratory distress, no accessory muscle use, + decreased breath sounds Cardiovascular: regular rate, rhythm Abdomen/GI: normal bowel sounds, soft, + tenderness (mild generalized) Extremities/Musculoskelatal: no pedal edema Neurologic/Psych: alert, normal mood/affect Skin: warm/dry, no rash Laboratory Results CT OF THE ABDOMEN AND PELVIS WITHOUT CONTRAST, STONE PROTOCOL CLINICAL HISTORY: Bilateral flank pain. Hematuria. Urinary tract infection. COMPARISON STUDY: CT of the abdomen and pelvis October 28, 2015. TECHNIQUE: Helical axial images of the abdomen and pelvis were obtained without IV or oral contrast according to renal stone protocol. FINDINGS: Visualized portions of the lower chest demonstrate small bilateral pleural effusions with associated opacities which favor atelectasis. Pacer leads and cardiomegaly are noted. There is no pneumatosis, free air or portal venous gas. Note is made of several left renal calculi that measure up to 6 mm. A 5 mm calculus within lower pole of the right kidney is noted. There are no ureteral calculi. There is mild bilateral perinephric infiltration as well as infiltration within each renal sinus, greater on the left. There is bilateral urothelial thickening which has been shown on prior exams. There is mild dilatation of both ureters and mild left pelvicaliectasis. Moderate wall thickening of the bladder is noted with adjacent infiltration. The bladder suboptimally assessed due to underdistention. Unenhanced images of liver, spleen, adrenal glands and pancreas are normal. The gallbladder surgically absent. There is no evidence for a bowel obstruction. There is sigmoid diverticulosis without evidence for acute diverticulitis. No suspicious osseous lesions are identified within visualized skeletal structures. IMPRESSION: 1. Bilateral nephrolithiasis. No ureteral calculi. Mild dilatation of both ureters and mild left pelvicaliectasis. Bilateral urothelial thickening. The hyperdensity within the collecting systems, left greater than right, could reflect urothelial thickening or a small amount of hemorrhage. These findings are nonspecific and could reflect infection, recently passed stone or an underlying urothelial malignancy. Correlation with urinalysis and urine cytology as well as urologic consultation is recommended although similar findings have been shown on prior exams. 2. Persistent bladder wall thickening adjacent infiltration which has been shown on prior exams. The findings favor cystitis. 3. Small bilateral pleural effusion with associated atelectasis. Item Value Date Time Urine Culture - Preliminary Resulted 04/18/16 0000 Urine,Catheterized Mei Albicans Urine Culture - Final Complete 04/11/16 1645 Urine,Catheterized NO GROWTH - LESS THAN 1,000 COLONIES/ML Blood Culture - Final Complete 04/11/16 1548 Blood NO GROWTH Blood Culture - Final Complete 04/11/16 1539 Blood NO GROWTH Last 24 Hours Test 04/18/16 11:54 04/18/16 16:31 04/18/16 20:34 04/19/16 07:11 Bedside Glucose 204 mg/dl 150 mg/dl 162 mg/dl 124 mg/dl Assessment & Plan Patient with recurrent UTI with mei albicans in the setting of renal calculi. 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 Still consider difficult to culture pathogens as well, therefore will test for Ureaplasma and Mycoplasma. More than likely will continue fluconazole for 4-6 weeks at least for concern with chronic infection. Patient has had previous lithotripsy, and may need to have his evaluated for repeat in the future if continued infections. We will follow. PROVIDER ADDENDUM: Patient examined and reviewed with Ms. Miller. Agree with above assessment.
--- NOTE | 2016-04-19 21:43 | Progress Note ---
Medicine Progress Note Date & Time of Visit: Apr 19, 2016 at 18:30 . Subjective Tired. No fever. No chest pain or cough. Pulm status at baseline. No nausea, vomiting, diarrhea. Dysuria improved since admission. No apparent gross hematuria today. . Objective Last 8 Hrs Date Time Temp Pulse Resp B/P Pulse Ox O2 Delivery O2 Flow Rate FiO2 04/19/16 20:10 86 16 91 Room Air 04/19/16 16:20 Nasal Cannula 3.0 04/19/16 15:49 36.7 75 20 142/72 97 Nasal Cannula 3.0 04/19/16 14:03 80 16 97 Nasal Cannula 3.0 Physical Exam: General-lying in bed; no distress Lungs- diffuse mild wheezing Heart- regular Abdomen- + BS, soft, nontender Extremities- no pretibial edema or calf tenderness Neuro- alert . Laboratory Results: Last 24 Hours Test 04/19/16 07:11 04/19/16 11:20 04/19/16 12:30 04/19/16 16:30 Bedside Glucose 124 mg/dl 176 mg/dl 155 mg/dl Test 04/19/16 20:30 Bedside Glucose 129 mg/dl Assessment & Plan URINARY SYMPTOMS History of recurrent UTI's. Recurrent urgency and dysuria last week. Cath urine culture as outpatient 04/08/16 grew mixed ashleigh. Initially treated with ciprofloxacin. Persistent symptoms 04/11. UA showed + leukocyte esterase, many WBCs, 10-[address] demonstrated bilateral renal calculi without ureteral obstruction, bilateral urothelial thickening within the collecting systems, persistent bladder wall thickening with adjacent infiltration consistent with cystitis. Repeat urine culture 04/11/16 negative. Urology consulted. Had cystoscopy within past year. Symptoms improved somewhat with IV aztreonam. Developed gross hematuria 04/17/15. Holding aspirin and DC fish oil. Case discussed with Urology. Has received 7-8 days of aztreonam -discontinued. ? atypical urinary tract pathogen. Consult ID. Repeat urine culture 04/18/16 growing [place] albicans. Fluconazole started. Urine cytology negative. CONFUSION Altered mental status day of admission, most likely secondary to ciprofloxacin. Head CT did not show any acute process. Improved. WEAKNESS / AMBULATORY DYSFUNCTION Weakness, fall day of admission. Head CT did not show any acute process. ? generalized weakness secondary to UTI. PT / OT. CAD No anginal symptoms. Continue aspirin, carvedilol, nitrates, statin. CHRONIC LEFT VENTRICULAR SYSTOLIC HEART FAILURE Compensated. COPD Stable. Continue nocturnal O2 + PRN with exertion. Nebs PRN. DM TYPE 2 Well-controlled. Hgb A1C = 6.0. FBS = 124 SEBORRHEIC DERMATITIS Improved with ketoconazole cream. VTE PROPHYLAXIS No anticoagulants due to hematuria. SCD's. Ambulate. DISPOSITION PT recommending skilled care. Case Management consulted. Internal Medicine follow-up with Dr. Candelaria. Components of this document were electronically copied and updated from the last documentation created by the undersigned in order to maintain a complete, accurate, and current record. Any portion of this document created by another author, if any, will be attributed to them. I certify that the record accurately reflects the patient's current status and services provided on the date of service. . Current Inpatient Medications: Current Inpatient Medications Medications (Trade) Dose Ordered Sig/Tonia Route Start Time Stop Time Status Last Admin Dose Admin Acetaminophen (Tylenol Tab) 650 mg Q4H PRN PO 04/11/16 20:00 05/11/16 19:59 04/19/16 02:30 650 MG Ondansetron HCl (Zofran Inj) 4 mg Q6H PRN IV 04/11/16 20:00 05/11/16 19:59 Insulin Aspart (novoLOG ASPART) SLIDING SCALE If C... ACHS SC 04/11/16 21:00 05/11/16 20:59 04/19/16 17:35 3 UNITS Glucose (Glucose 40% Gel) 15-30 GRAMS 15 GRAMS... UD PRN PO 04/11/16 20:15 05/11/16 20:14 Glucose (Glucose Chew Tab) 4-8 Tablets 4 Tabl... UD PRN PO 04/11/16 20:15 05/11/16 20:14 Dextrose (Dextrose 50% 50ML Syringe) 25-50ML OF 50% DW IV FOR... UD PRN IV 04/11/16 20:15 05/11/16 20:14 Glucagon (Glucagon Inj) 1 mg UD PRN SQ 04/11/16 20:15 05/11/16 20:14 Aspirin (Ecotrin Tab) 81 mg DAILY PO 04/12/16 09:00 05/12/16 08:59 Future Hold 04/17/16 08:50 81 MG Carvedilol (Coreg Tab) 6.25 mg BID PO 04/11/16 21:00 05/11/16 20:59 04/19/16 08:33 6.25 MG Cholecalciferol (Vitamin D Tab) 1,000 inter.unit DAILY PO 04/12/16 09:00 05/12/16 08:59 04/19/16 08:34 1,000 INTER.UNIT Cyanocobalamin (Vitamin B-12 Tab) 1,000 mcg DAILY PO 04/12/16 09:00 05/12/16 08:59 04/19/16 08:33 1,000 MCG Fexofenadine HCl (Randa Tab) 180 mg DAILY PRN PO 04/11/16 20:15 05/11/16 20:14 Finasteride (Proscar Tab) 5 mg DAILY PO 04/12/16 09:00 05/12/16 08:59 04/19/16 08:33 5 MG Fluticasone Propionate (Flonase Nasal [place]) 2 sprays DAILY PRN [place] 04/11/16 20:15 05/11/16 20:14 Acetaminophen/ Hydrocodone Bitart ([place] 5/325 Tab) 1 tab Q6H PRN PO 04/11/16 20:15 04/25/16 20:14 04/18/16 06:32 1 TAB Isosorbide Mononitrate (Imdur Ext Rel Tab) 30 mg QAM PO 04/12/16 09:00 05/12/16 08:59 04/19/16 08:33 30 MG Lorazepam (Ativan Tab) 0.5 mg HS PRN PO 04/11/16 20:15 05/11/16 20:14 04/19/16 02:30 0.5 MG Senna/Docusate Sodium (Senokot S Tab) 2 tab HS PO 04/11/16 21:00 05/11/16 20:59 04/18/16 21:32 2 TAB Sertraline HCl (Zoloft Tab) 100 mg HS PO 04/11/16 21:00 05/11/16 20:59 04/18/16 21:32 100 MG Simvastatin (Zocor Tab) 20 mg HS PO 04/11/16 21:00 05/11/16 20:59 04/18/16 21:32 20 MG Tamsulosin HCl (Flomax Cap) 0.4 mg HS PO 04/11/16 21:00 05/11/16 20:59 04/18/16 21:33 0.4 MG Ascorbic Acid (Vitamin C Tab) 500 mg DAILY PO 04/12/16 09:00 05/12/16 08:59 04/19/16 08:34 500 MG Pentosan Polysulfate Sodium (Elmiron) 100 mg BID PO 04/11/16 21:00 05/11/16 20:59 04/19/16 08:34 100 MG Pantoprazole Sodium (Protonix Tab) 40 mg QAM PO 04/12/16 09:00 05/12/16 08:59 04/19/16 08:34 40 MG Diclofenac Sodium (Voltaren 1% Top Gel) 1 appln BID PRN EXT 04/11/16 20:30 05/11/16 20:29 Clonidine HCl (Catapres Tab) 0.1 mg Q6H PRN PO 04/13/16 00:15 05/13/16 00:14 04/13/16 02:02 0.1 MG Ipratropium [place] (Atrovent 0.02% 0.5MG/2.5ML Neb) 0.5 mg TIDR INH 04/13/16 21:00 05/13/16 20:59 04/19/16 20:10 0.5 MG Levalbuterol (Xopenex 1.25MG/ 3ML Neb) 1.25 mg TIDR INH 04/13/16 21:00 05/13/16 20:59 04/19/16 20:10 1.25 MG Ketoconazole (Nizoral 2% Crm) 1 appln BID EXT 04/17/16 09:00 04/27/16 08:59 04/19/16 08:32 1 APPLN Fluconazole (Diflucan Tab) 100 mg QAM PO 04/20/16 09:00 04/30/16 08:59
[2016-04-19] MEDS: DOCUSATE SODIUM/SENNA 50/8.6MG TAB PO SCH (21:44)
[2016-04-19] MEDS: TAMSULOSIN HCL 0.4 MG CAP PO SCH (21:44)
[2016-04-19] MEDS: SIMVASTATIN 20 MG TAB PO SCH (21:45)
[2016-04-19] MEDS: SERTRALINE HCL 100 MG TAB PO SCH (21:45)
[2016-04-20] VITALS (8 sets, daily range): BP systolic 146–160; BP diastolic 68–80; PULSE 68–90; TEMP 36.4–36.6; O2SAT 92–98
[2016-04-20] MEDS: IPRATROPIUM BROMIDE NEB SOLN 0.02% 2.5 ML VIAL INH SCH ×3 (07:36→19:42)
[2016-04-20] MEDS: LEVALBUTEROL 1.25MG/3ML NEB INH SCH ×3 (07:40→19:42)
[2016-04-20 07:50] LABS: HEMATOCRIT 35.6 % (42-52); MEAN CELL VOLUME 90.8 fL (80-100); MEAN CORPUSCULAR HEMOGLOBIN 28.8 pg (25-34); MEAN CORPUSCULAR HGB CONC 31.7 g/dl (32-36); MEAN PLATELET VOLUME 9.1 fL (7.4-10.4); PLATELET COUNT 189 K/uL (130-400); RED BLOOD COUNT 3.92 M/uL (4.7-6.1); WHITE BLOOD COUNT 6.36 K/uL (4.8-10.8)
[2016-04-20] MEDS: PENTOSAN POLYSULFATE SODIUM 100 MG CAP PO SCH ×2 (08:12→20:56)
[2016-04-20] MEDS: CYANOCOBALAMIN 500 MCG TAB (VIT B-12) PO SCH (08:13)
[2016-04-20] MEDS: FINASTERIDE 5 MG TAB PO SCH (08:13)
[2016-04-20] MEDS: CARVEDILOL 6.25 MG TAB PO SCH ×2 (08:13→20:55)
[2016-04-20] MEDS: PANTOprazole SOD 40 MG TAB PO SCH (08:13)
[2016-04-20] MEDS: ISOSORBIDE MONONITRATE 30 MG TABCR PO SCH (08:13)
[2016-04-20] MEDS: FLUCONAZOLE 100 MG TAB PO SCH (08:14)
[2016-04-20] MEDS: ASCORBIC ACID 500 MG TAB PO SCH (08:14)
[2016-04-20] MEDS: CHOLECALCIFEROL 1000 INTER.UNIT TAB PO SCH (08:14)
[2016-04-20] MEDS: KETOCONAZOLE 2% CR 15 GM TUBE EXT SCH ×2 (08:14→20:57)
[2016-04-20] MEDS: INSULIN ASPART 100 UNITS/ML 3 ML PEN SC SCH ×4 (08:18→21:00)
[2016-04-20 08:44] LABS: BLOOD UREA NITROGEN 25 mg/dl (7-18); BUN/CREATININE RATIO 17.9 (10-20); CALCIUM 8.8 mg/dl (8.5-10.1); CARBON DIOXIDE 29 mmol/L (21-32); CHLORIDE 107 mmol/L (98-107); GLUCOSE 143 mg/dl (70-99); SODIUM 144 mmol/L (136-145)
--- NOTE | 2016-04-20 14:35 | Infectious Disease Progress Nt ---
Progress Note Date of Service Apr 20, 2016. Subjective Pt evaluation today including: conversation w/ patient, conversation w/ family (), physical exam, chart review, lab review, review of studies, review of inpatient medication list WBC count today is 6.36. Creatinine was 1.40. Final blood cultures show no growth. Patient continues on fluconazole. He states that he continues to be weak and very fatigued. He continues to have some pelvic pressure and mild abdominal pain as well. He is anticipating D/C to rehab. All Other Systems: Reviewed and Negative Medications Current Inpatient Medications Medications (Trade) Dose Ordered Sig/Tonia Route Start Time Stop Time Status Last Admin Dose Admin Acetaminophen (Tylenol Tab) 650 mg Q4H PRN PO 04/11/16 20:00 05/11/16 19:59 04/19/16 02:30 650 MG Ondansetron HCl (Zofran Inj) 4 mg Q6H PRN IV 04/11/16 20:00 05/11/16 19:59 Insulin Aspart (novoLOG ASPART) SLIDING SCALE If C... ACHS SC 04/11/16 21:00 05/11/16 20:59 04/20/16 12:46 5 UNITS Glucose (Glucose 40% Gel) 15-30 GRAMS 15 GRAMS... UD PRN PO 04/11/16 20:15 05/11/16 20:14 Glucose (Glucose Chew Tab) 4-8 Tablets 4 Tabl... UD PRN PO 04/11/16 20:15 05/11/16 20:14 Dextrose (Dextrose 50% 50ML Syringe) 25-50ML OF 50% DW IV FOR... UD PRN IV 04/11/16 20:15 05/11/16 20:14 Glucagon (Glucagon Inj) 1 mg UD PRN SQ 04/11/16 20:15 05/11/16 20:14 Aspirin (Ecotrin Tab) 81 mg DAILY PO 04/12/16 09:00 05/12/16 08:59 Future Hold 04/17/16 08:50 81 MG Carvedilol (Coreg Tab) 6.25 mg BID PO 04/11/16 21:00 05/11/16 20:59 04/20/16 08:13 6.25 MG Cholecalciferol (Vitamin D Tab) 1,000 inter.unit DAILY PO 04/12/16 09:00 05/12/16 08:59 04/20/16 08:14 1,000 INTER.UNIT Cyanocobalamin (Vitamin B-12 Tab) 1,000 mcg DAILY PO 04/12/16 09:00 05/12/16 08:59 04/20/16 08:13 1,000 MCG Fexofenadine HCl (Randa Tab) 180 mg DAILY PRN PO 04/11/16 20:15 05/11/16 20:14 Finasteride (Proscar Tab) 5 mg DAILY PO 04/12/16 09:00 05/12/16 08:59 04/20/16 08:13 5 MG Fluticasone Propionate (Flonase Nasal [place]) 2 sprays DAILY PRN [place] 04/11/16 20:15 05/11/16 20:14 Acetaminophen/ Hydrocodone Bitart ([place] 5/325 Tab) 1 tab Q6H PRN PO 04/11/16 20:15 04/25/16 20:14 04/18/16 06:32 1 TAB Isosorbide Mononitrate (Imdur Ext Rel Tab) 30 mg QAM PO 04/12/16 09:00 05/12/16 08:59 04/20/16 08:13 30 MG Lorazepam (Ativan Tab) 0.5 mg HS PRN PO 04/11/16 20:15 05/11/16 20:14 04/19/16 02:30 0.5 MG Senna/Docusate Sodium (Senokot S Tab) 2 tab HS PO 04/11/16 21:00 05/11/16 20:59 04/19/16 21:44 2 TAB Sertraline HCl (Zoloft Tab) 100 mg HS PO 04/11/16 21:00 05/11/16 20:59 04/19/16 21:45 100 MG Simvastatin (Zocor Tab) 20 mg HS PO 04/11/16 21:00 05/11/16 20:59 04/19/16 21:45 20 MG Tamsulosin HCl (Flomax Cap) 0.4 mg HS PO 04/11/16 21:00 05/11/16 20:59 04/19/16 21:44 0.4 MG Ascorbic Acid (Vitamin C Tab) 500 mg DAILY PO 04/12/16 09:00 05/12/16 08:59 04/20/16 08:14 500 MG Pentosan Polysulfate Sodium (Elmiron) 100 mg BID PO 04/11/16 21:00 05/11/16 20:59 04/20/16 08:12 100 MG Pantoprazole Sodium (Protonix Tab) 40 mg QAM PO 04/12/16 09:00 05/12/16 08:59 04/20/16 08:13 40 MG Diclofenac Sodium (Voltaren 1% Top Gel) 1 appln BID PRN EXT 04/11/16 20:30 05/11/16 20:29 Clonidine HCl (Catapres Tab) 0.1 mg Q6H PRN PO 04/13/16 00:15 05/13/16 00:14 04/13/16 02:02 0.1 MG Ipratropium [place] (Atrovent 0.02% 0.5MG/2.5ML Neb) 0.5 mg TIDR INH 04/13/16 21:00 05/13/16 20:59 04/20/16 07:36 0.5 MG Levalbuterol (Xopenex 1.25MG/ 3ML Neb) 1.25 mg TIDR INH 04/13/16 21:00 05/13/16 20:59 04/20/16 07:40 1.25 MG Ketoconazole (Nizoral 2% Crm) 1 appln BID EXT 04/17/16 09:00 04/27/16 08:59 04/20/16 08:14 1 APPLN Fluconazole (Diflucan Tab) 100 mg QAM PO 04/20/16 09:00 04/30/16 08:59 04/20/16 08:14 100 MG Objective Vital Signs Date Time Temp Pulse Resp B/P Pulse Ox O2 Delivery O2 Flow Rate FiO2 04/20/16 09:08 Nasal Cannula 3.0 04/20/16 08:54 36.6 90 18 146/68 92 Room Air 04/20/16 07:40 68 16 95 Nasal Cannula 04/20/16 00:28 36.5 81 18 160/80 97 2.0 04/20/16 00:00 Nasal Cannula 3.0 04/19/16 21:50 83 145/75 04/19/16 20:10 86 16 91 Room Air 04/19/16 20:00 Nasal Cannula 3.0 04/19/16 16:20 Nasal Cannula 3.0 04/19/16 15:49 36.7 75 20 142/72 97 Nasal Cannula 3.0 Physical Exam General Appearance: no apparent distress, + obese Eyes: normal inspection, sclerae normal ENT: hearing grossly normal Neck: supple, trachea midline Respiratory/Chest: no respiratory distress, no accessory muscle use Cardiovascular: regular rate, rhythm Extremities: normal inspection Neurologic/Psychiatric: alert, + pertinent finding (fatigued) Skin: normal color, warm/dry, no rash Laboratory Results Item Value Date Time Urine Culture - Final Complete 04/18/16 0000 Urine,Catheterized Mei Albicans Blood Culture - Final Complete 04/11/16 1548 Blood NO GROWTH Blood Culture - Final Complete 04/11/16 1539 Blood NO GROWTH Last 24 Hours Test 04/19/16 16:30 04/19/16 20:30 04/20/16 07:30 04/20/16 07:50 Bedside Glucose 155 mg/dl 129 mg/dl 139 mg/dl White Blood Count 6.36 K/uL Red Blood Count 3.92 M/uL Hemoglobin 11.3 g/dL Hematocrit 35.6 % Mean Corpuscular Volume 90.8 fL Mean Corpuscular Hemoglobin 28.8 pg Mean Corpuscular Hemoglobin Concent 31.7 g/dl RDW Standard Deviation 46.4 fL RDW Coefficient of Variation 14.0 % Platelet Count 189 K/uL Mean Platelet Volume 9.1 fL Sodium Level 144 mmol/L Potassium Level mmol/L Chloride Level 107 mmol/L Carbon Dioxide Level 29 mmol/L Anion Gap 8.0 mmol/L Blood Urea Nitrogen 25 mg/dl Creatinine 1.40 mg/dl Est Creatinine Clear Calc Drug Dose 49.5 ml/min Estimated GFR () 53.8 Estimated GFR (Non- 46.5 BUN/Creatinine Ratio 17.9 Random Glucose 143 mg/dl Calcium Level 8.8 mg/dl Test 04/20/16 09:03 04/20/16 11:29 Potassium Level 3.9 mmol/L Bedside Glucose 155 mg/dl Assessment and Plan Patient with recurrent UTI with mei albicans in the setting of renal calculi. 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 Still consider difficult to culture pathogens as well- awaiting these studies. Recommend continuation of fluconazole for 4-6 weeks for concern with chronic infection. Patient has had previous lithotripsy, and may need to have his evaluated for repeat in the future if continued infections. Following discharge , recommend repeat lab work including CBC and CMP at least biweekly. He should follow up with ID in 2 weeks as outpatient. No further ID recommendations. OK for D/C from ID perspective. Thanks Plan: 1. Continue Fluconazole 4-6 weeks 2. Labs biweekly (CBC and CMP) 3. F/U with ID 2 weeks PROVIDER ADDENDUM: Patient reviewed with Ms. Miller. Agree with above assessment.
--- NOTE | 2016-04-20 20:09 | Progress Note ---
Medicine Progress Note Date & Time of Visit: Apr 20, 2016 at 10:50 . Subjective Tired. No fever. No chest pain. Chronic dyspnea on exertion. No nausea, vomiting, diarrhea. Dysuria improved since admission. No apparent gross hematuria. . Objective Last 8 Hrs Date Time Temp Pulse Resp B/P Pulse Ox O2 Delivery O2 Flow Rate FiO2 04/20/16 19:42 76 16 96 Nasal Cannula 2.0 04/20/16 16:00 98 3.0 04/20/16 15:02 36.4 76 18 147/75 98 Nasal Cannula 3.0 04/20/16 14:38 76 16 96 Nasal Cannula 2.0 Physical Exam: General-lying in bed; no distress Lungs- diffuse mild wheezing Heart- regular Abdomen- + BS, soft, nontender Extremities- trace pretibial edema; no calf tenderness Neuro- alert . Laboratory Results: Last 24 Hours Test 04/19/16 20:30 04/20/16 07:30 04/20/16 07:50 04/20/16 09:03 Bedside Glucose 129 mg/dl 139 mg/dl White Blood Count 6.36 K/uL Red Blood Count 3.92 M/uL Hemoglobin 11.3 g/dL Hematocrit 35.6 % Mean Corpuscular Volume 90.8 fL Mean Corpuscular Hemoglobin 28.8 pg Mean Corpuscular Hemoglobin Concent 31.7 g/dl RDW Standard Deviation 46.4 fL RDW Coefficient of Variation 14.0 % Platelet Count 189 K/uL Mean Platelet Volume 9.1 fL Sodium Level 144 mmol/L Potassium Level mmol/L 3.9 mmol/L Chloride Level 107 mmol/L Carbon Dioxide Level 29 mmol/L Anion Gap 8.0 mmol/L Blood Urea Nitrogen 25 mg/dl Creatinine 1.40 mg/dl Est Creatinine Clear Calc Drug Dose 49.5 ml/min Estimated GFR () 53.8 Estimated GFR (Non- 46.5 BUN/Creatinine Ratio 17.9 Random Glucose 143 mg/dl Calcium Level 8.8 mg/dl Test 04/20/16 11:29 04/20/16 15:55 Bedside Glucose 155 mg/dl 189 mg/dl Assessment & Plan URINARY SYMPTOMS History of recurrent UTI's. Recurrent urgency and dysuria last week. Cath urine culture as outpatient 04/08/16 grew mixed ashleigh. Initially treated with ciprofloxacin. Persistent symptoms 04/11. UA showed + leukocyte esterase, many WBCs, 10-[address] demonstrated bilateral renal calculi without ureteral obstruction, bilateral urothelial thickening within the collecting systems, persistent bladder wall thickening with adjacent infiltration consistent with cystitis. Repeat urine culture 04/11/16 negative. Urology consulted. Had cystoscopy within past year. Symptoms improved somewhat with IV aztreonam. Developed gross hematuria 04/17/15. Holding aspirin and DC fish oil. Case discussed with Urology. Has received 7-8 days of aztreonam -discontinued. ? atypical urinary tract pathogen. Consult ID. Repeat urine culture 04/18/16 growing Namrata albicans. Fluconazole started. Urine cytology negative. CONFUSION Altered mental status day of admission, most likely secondary to ciprofloxacin. Head CT did not show any acute process. Improved. WEAKNESS / AMBULATORY DYSFUNCTION Weakness, fall day of admission. Head CT did not show any acute process. ? generalized weakness secondary to UTI. PT / OT. CAD No anginal symptoms. Continue aspirin, carvedilol, nitrates, statin. CHRONIC LEFT VENTRICULAR SYSTOLIC HEART FAILURE Compensated. COPD Stable. Continue nocturnal O2 + PRN with exertion. Nebs PRN. DM TYPE 2 Well-controlled. Hgb A1C = 6.0. FBS = 139 SEBORRHEIC DERMATITIS Improved with ketoconazole cream. VTE PROPHYLAXIS No anticoagulants due to hematuria. SCD's. Ambulate. DISPOSITION PT recommending skilled care. Case Management consulted. Internal Medicine follow-up with Dr. Candelaria. Components of this document were electronically copied and updated from the last documentation created by the undersigned in order to maintain a complete, accurate, and current record. Any portion of this document created by another author, if any, will be attributed to them. I certify that the record accurately reflects the patient's current status and services provided on the date of service. . Current Inpatient Medications: Current Inpatient Medications Medications (Trade) Dose Ordered Sig/Tonia Route Start Time Stop Time Status Last Admin Dose Admin Acetaminophen (Tylenol Tab) 650 mg Q4H PRN PO 04/11/16 20:00 05/11/16 19:59 04/19/16 02:30 650 MG Ondansetron HCl (Zofran Inj) 4 mg Q6H PRN IV 04/11/16 20:00 05/11/16 19:59 Insulin Aspart (novoLOG ASPART) SLIDING SCALE If C... ACHS SC 04/11/16 21:00 05/11/16 20:59 04/20/16 17:57 6 UNITS Glucose (Glucose 40% Gel) 15-30 GRAMS 15 GRAMS... UD PRN PO 04/11/16 20:15 05/11/16 20:14 Glucose (Glucose Chew Tab) 4-8 Tablets 4 Tabl... UD PRN PO 04/11/16 20:15 05/11/16 20:14 Dextrose (Dextrose 50% 50ML Syringe) 25-50ML OF 50% DW IV FOR... UD PRN IV 04/11/16 20:15 05/11/16 20:14 Glucagon (Glucagon Inj) 1 mg UD PRN SQ 04/11/16 20:15 05/11/16 20:14 Aspirin (Ecotrin Tab) 81 mg DAILY PO 04/12/16 09:00 05/12/16 08:59 Future Hold 04/17/16 08:50 81 MG Carvedilol (Coreg Tab) 6.25 mg BID PO 04/11/16 21:00 05/11/16 20:59 04/20/16 08:13 6.25 MG Cholecalciferol (Vitamin D Tab) 1,000 inter.unit DAILY PO 04/12/16 09:00 05/12/16 08:59 04/20/16 08:14 1,000 INTER.UNIT Cyanocobalamin (Vitamin B-12 Tab) 1,000 mcg DAILY PO 04/12/16 09:00 05/12/16 08:59 04/20/16 08:13 1,000 MCG Fexofenadine HCl (Randa Tab) 180 mg DAILY PRN PO 04/11/16 20:15 05/11/16 20:14 Finasteride (Proscar Tab) 5 mg DAILY PO 04/12/16 09:00 05/12/16 08:59 04/20/16 08:13 5 MG Fluticasone Propionate (Flonase Nasal [place]) 2 sprays DAILY PRN [place] 04/11/16 20:15 05/11/16 20:14 Acetaminophen/ Hydrocodone Bitart ([place] 5/325 Tab) 1 tab Q6H PRN PO 04/11/16 20:15 04/25/16 20:14 04/18/16 06:32 1 TAB Isosorbide Mononitrate (Imdur Ext Rel Tab) 30 mg QAM PO 04/12/16 09:00 05/12/16 08:59 04/20/16 08:13 30 MG Lorazepam (Ativan Tab) 0.5 mg HS PRN PO 04/11/16 20:15 05/11/16 20:14 04/19/16 02:30 0.5 MG Senna/Docusate Sodium (Senokot S Tab) 2 tab HS PO 04/11/16 21:00 05/11/16 20:59 04/19/16 21:44 2 TAB Sertraline HCl (Zoloft Tab) 100 mg HS PO 04/11/16 21:00 05/11/16 20:59 04/19/16 21:45 100 MG Simvastatin (Zocor Tab) 20 mg HS PO 04/11/16 21:00 05/11/16 20:59 04/19/16 21:45 20 MG Tamsulosin HCl (Flomax Cap) 0.4 mg HS PO 04/11/16 21:00 05/11/16 20:59 04/19/16 21:44 0.4 MG Ascorbic Acid (Vitamin C Tab) 500 mg DAILY PO 04/12/16 09:00 05/12/16 08:59 04/20/16 08:14 500 MG Pentosan Polysulfate Sodium (Elmiron) 100 mg BID PO 04/11/16 21:00 05/11/16 20:59 04/20/16 08:12 100 MG Pantoprazole Sodium (Protonix Tab) 40 mg QAM PO 04/12/16 09:00 05/12/16 08:59 04/20/16 08:13 40 MG Diclofenac Sodium (Voltaren 1% Top Gel) 1 appln BID PRN EXT 04/11/16 20:30 05/11/16 20:29 Clonidine HCl (Catapres Tab) 0.1 mg Q6H PRN PO 04/13/16 00:15 05/13/16 00:14 04/13/16 02:02 0.1 MG Ipratropium [place] (Atrovent 0.02% 0.5MG/2.5ML Neb) 0.5 mg TIDR INH 04/13/16 21:00 05/13/16 20:59 04/20/16 19:42 0.5 MG Levalbuterol (Xopenex 1.25MG/ 3ML Neb) 1.25 mg TIDR INH 04/13/16 21:00 05/13/16 20:59 04/20/16 19:42 1.25 MG Ketoconazole (Nizoral 2% Crm) 1 appln BID EXT 04/17/16 09:00 04/27/16 08:59 04/20/16 08:14 1 APPLN Fluconazole (Diflucan Tab) 100 mg QAM PO 04/20/16 09:00 04/30/16 08:59 04/20/16 08:14 100 MG
[2016-04-20] MEDS: DOCUSATE SODIUM/SENNA 50/8.6MG TAB PO SCH (20:56)
[2016-04-20] MEDS: SERTRALINE HCL 100 MG TAB PO SCH (20:56)
[2016-04-20] MEDS: SIMVASTATIN 20 MG TAB PO SCH (20:56)
[2016-04-20] MEDS: TAMSULOSIN HCL 0.4 MG CAP PO SCH (20:57)
[2016-04-21 00:48] VITALS: BP 173/78; PULSE 83; TEMP 36.4; O2SAT 97
[2016-04-21 07:18] VITALS: PULSE 80; O2SAT 96
[2016-04-21] MEDS: IPRATROPIUM BROMIDE NEB SOLN 0.02% 2.5 ML VIAL INH SCH ×2 (07:18→14:16)
[2016-04-21] MEDS: LEVALBUTEROL 1.25MG/3ML NEB INH SCH ×2 (07:18→14:16)
[2016-04-21 07:41] VITALS: BP 129/75; PULSE 73; TEMP 36.4; O2SAT 99
[2016-04-21] MEDS: PENTOSAN POLYSULFATE SODIUM 100 MG CAP PO SCH (08:13)
[2016-04-21] MEDS: ASCORBIC ACID 500 MG TAB PO SCH (08:13)
[2016-04-21] MEDS: KETOCONAZOLE 2% CR 15 GM TUBE EXT SCH (08:13)
[2016-04-21] MEDS: FLUCONAZOLE 100 MG TAB PO SCH (08:13)
[2016-04-21] MEDS: PANTOprazole SOD 40 MG TAB PO SCH (08:14)
[2016-04-21] MEDS: CARVEDILOL 6.25 MG TAB PO SCH (08:14)
[2016-04-21] MEDS: ISOSORBIDE MONONITRATE 30 MG TABCR PO SCH (08:14)
[2016-04-21] MEDS: CYANOCOBALAMIN 500 MCG TAB (VIT B-12) PO SCH (08:14)
[2016-04-21] MEDS: CHOLECALCIFEROL 1000 INTER.UNIT TAB PO SCH (08:14)
[2016-04-21] MEDS: FINASTERIDE 5 MG TAB PO SCH (08:14)
[2016-04-21] MEDS: INSULIN ASPART 100 UNITS/ML 3 ML PEN SC SCH ×2 (09:22→13:08)
[2016-04-21 13:54] VITALS: BP 129/75; PULSE 73; TEMP 36.4; O2SAT 99
[2016-04-21 14:17] VITALS: PULSE 78; O2SAT 96
[2016-04-21 15:33] VITALS: BP 145/75; PULSE 78; TEMP 36.3; O2SAT 94
--- NOTE | 2016-04-21 15:42 | Progress Note ---
Medicine Progress Note Date & Time of Visit: Apr 21, 2016 at 15:32 . Subjective Tired. Exercise tolerance poor- ambulating with walker and supervision. No fever. Respiratory status stable. No chest pain. No nausea, vomiting, diarrhea. No hematuria for a few days; less dysuria. . Objective Last 8 Hrs Date Time Temp Pulse Resp B/P Pulse Ox O2 Delivery O2 Flow Rate FiO2 04/21/16 14:17 78 16 96 Nasal Cannula 2.0 04/21/16 13:54 36.4 73 18 99 Room Air Nasal Cannula 04/21/16 07:49 Nasal Cannula 3.0 04/21/16 07:41 36.4 73 18 129/75 99 Nasal Cannula 3.0 Physical Exam: General- no distress Lungs- diffuse mild wheezing Heart- regular Abdomen- + BS, soft, nontender Extremities- trace pretibial edema; no calf tenderness Neuro- alert . Laboratory Results: Last 24 Hours Test 04/20/16 15:55 04/20/16 20:50 04/21/16 07:54 04/21/16 11:31 Bedside Glucose 189 mg/dl 204 mg/dl 139 mg/dl 186 mg/dl Assessment & Plan URINARY SYMPTOMS History of recurrent UTI's. Recurrent urgency and dysuria last week. Cath urine culture as outpatient 04/08/16 grew mixed ashleigh. Initially treated with ciprofloxacin. Persistent symptoms 04/11. UA showed + leukocyte esterase, many WBCs, 10-[address] demonstrated bilateral renal calculi without ureteral obstruction, bilateral urothelial thickening within the collecting systems, persistent bladder wall thickening with adjacent infiltration consistent with cystitis. Repeat urine culture 04/11/16 negative. Urology consulted. Had cystoscopy within past year; no need to repeat at this time. Symptoms improved somewhat with IV aztreonam. Developed gross hematuria 04/17/15. Holding aspirin and DC fish oil. Case discussed with Urology. Received 7-8 days of aztreonam -discontinued. ? atypical urinary tract pathogen. Consulted ID. Repeat urine culture 04/18/16 grew Namrata albicans. Fluconazole started. Urine cytology negative. Renal calculi may be nidus of recurrent Namrata infections. Fluconazole x 4-6 weeks recommended. CONFUSION Altered mental status day of admission, most likely encephalopathy secondary to ciprofloxacin or UTI. Head CT did not show any acute process. Improved. WEAKNESS / AMBULATORY DYSFUNCTION Weakness, fall day of admission. Head CT did not show any acute process. Weakness probably multifactorial- deconditioning, infection, underlying cardiopulmonary diseases, meds, etc. PT / OT. CAD No anginal symptoms. Continue aspirin, carvedilol, nitrates, statin. CHRONIC LEFT VENTRICULAR SYSTOLIC HEART FAILURE Compensated. Continue carvedilol, nitrates, furosemide PRN. No DEEPAK or ARB due to CKD. COPD Stable. Continue nocturnal O2 + PRN with exertion. Nebs PRN. DM TYPE 2 Well-controlled. Hgb A1C = 6.0. FBS = 139 SEBORRHEIC DERMATITIS Improved with ketoconazole cream. VTE PROPHYLAXIS No anticoagulants due to hematuria. SCD's. Ambulate. DISPOSITION PT recommended skilled care. Case Management consulted. Arrangements being made for transfer to [facility] for skilled care. Internal Medicine follow-up with Dr. Candelaria. ID f/u with Aria Miller PA-C. Urology follow-up at [facility] scheduled. Components of this document were electronically copied and updated from the last documentation created by the undersigned in order to maintain a complete, accurate, and current record. Any portion of this document created by another author, if any, will be attributed to them. I certify that the record accurately reflects the patient's current status and services provided on the date of service. . Current Inpatient Medications: Current Inpatient Medications Medications (Trade) Dose Ordered Sig/Tonia Route Start Time Stop Time Status Last Admin Dose Admin Acetaminophen (Tylenol Tab) 650 mg Q4H PRN PO 04/11/16 20:00 05/11/16 19:59 04/19/16 02:30 650 MG Ondansetron HCl (Zofran Inj) 4 mg Q6H PRN IV 04/11/16 20:00 05/11/16 19:59 Insulin Aspart (novoLOG ASPART) SLIDING SCALE If C... ACHS SC 04/11/16 21:00 05/11/16 20:59 04/21/16 13:08 6 UNITS Glucose (Glucose 40% Gel) 15-30 GRAMS 15 GRAMS... UD PRN PO 04/11/16 20:15 05/11/16 20:14 Glucose (Glucose Chew Tab) 4-8 Tablets 4 Tabl... UD PRN PO 04/11/16 20:15 05/11/16 20:14 Dextrose (Dextrose 50% 50ML Syringe) 25-50ML OF 50% DW IV FOR... UD PRN IV 04/11/16 20:15 05/11/16 20:14 Glucagon (Glucagon Inj) 1 mg UD PRN SQ 04/11/16 20:15 05/11/16 20:14 Aspirin (Ecotrin Tab) 81 mg DAILY PO 04/12/16 09:00 05/12/16 08:59 Future Hold 04/17/16 08:50 81 MG Carvedilol (Coreg Tab) 6.25 mg BID PO 04/11/16 21:00 05/11/16 20:59 04/21/16 08:14 6.25 MG Cholecalciferol (Vitamin D Tab) 1,000 inter.unit DAILY PO 04/12/16 09:00 05/12/16 08:59 04/21/16 08:14 1,000 INTER.UNIT Cyanocobalamin (Vitamin B-12 Tab) 1,000 mcg DAILY PO 04/12/16 09:00 05/12/16 08:59 04/21/16 08:14 1,000 MCG Fexofenadine HCl (Randa Tab) 180 mg DAILY PRN PO 04/11/16 20:15 05/11/16 20:14 Finasteride (Proscar Tab) 5 mg DAILY PO 04/12/16 09:00 05/12/16 08:59 04/21/16 08:14 5 MG Fluticasone Propionate (Flonase Nasal [place]) 2 sprays DAILY PRN [place] 04/11/16 20:15 05/11/16 20:14 Acetaminophen/ Hydrocodone Bitart ([place] 5/325 Tab) 1 tab Q6H PRN PO 04/11/16 20:15 04/25/16 20:14 04/18/16 06:32 1 TAB Isosorbide Mononitrate (Imdur Ext Rel Tab) 30 mg QAM PO 04/12/16 09:00 05/12/16 08:59 04/21/16 08:14 30 MG Lorazepam (Ativan Tab) 0.5 mg HS PRN PO 04/11/16 20:15 05/11/16 20:14 04/19/16 02:30 0.5 MG Senna/Docusate Sodium (Senokot S Tab) 2 tab HS PO 04/11/16 21:00 05/11/16 20:59 04/20/16 20:56 2 TAB Sertraline HCl (Zoloft Tab) 100 mg HS PO 04/11/16 21:00 05/11/16 20:59 04/20/16 20:56 100 MG Simvastatin (Zocor Tab) 20 mg HS PO 04/11/16 21:00 05/11/16 20:59 04/20/16 20:56 20 MG Tamsulosin HCl (Flomax Cap) 0.4 mg HS PO 04/11/16 21:00 05/11/16 20:59 04/20/16 20:57 0.4 MG Ascorbic Acid (Vitamin C Tab) 500 mg DAILY PO 04/12/16 09:00 05/12/16 08:59 04/21/16 08:13 500 MG Pentosan Polysulfate Sodium (Elmiron) 100 mg BID PO 04/11/16 21:00 05/11/16 20:59 04/21/16 08:13 100 MG Pantoprazole Sodium (Protonix Tab) 40 mg QAM PO 04/12/16 09:00 05/12/16 08:59 04/21/16 08:14 40 MG Diclofenac Sodium (Voltaren 1% Top Gel) 1 appln BID PRN EXT 04/11/16 20:30 05/11/16 20:29 Clonidine HCl (Catapres Tab) 0.1 mg Q6H PRN PO 04/13/16 00:15 05/13/16 00:14 04/13/16 02:02 0.1 MG Ipratropium [place] (Atrovent 0.02% 0.5MG/2.5ML Neb) 0.5 mg TIDR INH 04/13/16 21:00 05/13/16 20:59 04/21/16 14:16 0.5 MG Levalbuterol (Xopenex 1.25MG/ 3ML Neb) 1.25 mg TIDR INH 04/13/16 21:00 05/13/16 20:59 04/21/16 14:16 1.25 MG Ketoconazole (Nizoral 2% Crm) 1 appln BID EXT 04/17/16 09:00 04/27/16 08:59 04/21/16 08:13 1 APPLN Fluconazole (Diflucan Tab) 100 mg QAM PO 04/20/16 09:00 04/30/16 08:59 04/21/16 08:13 100 MG
[2016-04-21] MEDS ORDERED: ZLF50 PO (15:44)
--- NOTE | 2016-04-21 15:50 | Discharge Instructions ---
Discharge Instructions Admission Reason for Admission: UTI Discharge Discharge Diagnosis / Problem: altered mental status, recurrent UTI's Discharge Goals Goal(s): Decrease discomfort, Improve function, Increase independence, Improve disease control Activity Recommendations Activity Level: Assistance Required (with walker and O2) Therapies: Physical Therapy, Occupational Therapy . Additional Information Patient informed of condition: No Advance Directives: No DNR: No Level of Care: Skilled Communicable Disease: No Prognosis: Improving Oxygen at (LPM): nocturnal O2 3 LPM, O2 3 LPM during the day with activity or for SOB Cantu Catheter: No Instructions / Follow-Up Instructions / Follow-Up FOLLOW-UP APPOINTMENTS: INTERNAL MEDICINE Dr. Candelaria- please make appointment at time of DC from [facility]. INFECTIOUS DISEASE Aria Miller PA-C in 2 weeks. Please call office for appointment. UROLOGY As scheduled. Thank you for receiving this patient in transfer. Please call if you have any questions. Christo Low . . Current Hospital Diet Patient's current hospital diet: Diabetes Type 2 Diet, AHA Diet (Heart Healthy) Discharge Diet Recommended Diet: AHA Diet (Heart Healthy), Diabetes Type 2 Diet Pending Studies Studies pending at discharge: no Physician Orders On Transfer Special Precautions: fall precautions . Vital Signs: routine . Weigh: routine . Additional Orders: Fingerstick blood sugars AC + HS. Please check CBC and comprehensive metabolic profile twice a week while taking fluconazole. . POLST Discussion: Not Applicable Laboratory Results Hemoglobin A1c Test 04/12/16 05:20 Range/Units Estimated Average Glucose 126 mg/dl Hemoglobin A1c 6.0 H 4.5-5.6 % Medical Emergencies . Who to Call and When: Medical Emergencies: If at any time you feel your situation is an emergency, please call 911 immediately. . Non-Emergent Contact Non-Emergency issues call your: Primary Care Provider . . "Provider Documentation" section prepared by Christo Low. Core Measure Problem Core Measures: None
[2016-04-21] MEDS ORDERED: FLUC100T4 PO (15:57)
--- NOTE | 2016-04-21 15:59 | Discharge Summary ---
Discharge Summary Admission Date: Apr 11, 2016 at 19:48 Discharge Date: Apr 21, 2016 Discharge Disposition: [facility] facility ([facility]) Principal Diagnosis: altered mental status recurrent urinary tract infections ambulatory dysfunction . Secondary Diagnoses/Problems: Medical Problems: (1) Basal cell carcinoma Status: Chronic (2) BPH (benign prostatic hyperplasia) Status: Chronic (3) CAD (coronary artery disease) Permanent Comment: s/p mid LAD and left circumflex stents in 2007 Status: Chronic (4) Chronic systolic (congestive) heart failure Permanent Comment: echo 08/2014 - EF 40-45%, grade I diastolic dysfunction Status: Chronic (5) COPD, severe Status: Chronic (6) Depression Status: Chronic (7) Diabetes mellitus Permanent Comment: type 2 Status: Chronic (8) Dyslipidemia Status: Chronic (9) Esophageal stricture Permanent Comment: s/p dilation Status: Chronic (10) GERD (gastroesophageal reflux disease) Status: Chronic (11) High degree atrioventricular block Permanent Comment: s/p pacemaker with upgrade to biventricular device in 2014 Status: Resolved (12) Ischemic cardiomyopathy Status: Chronic (13) DENISHA (obstructive sleep apnea) Status: Chronic (14) Renal artery stenosis Status: Chronic Surgical Problems: (1) H/O hand surgery Status: Resolved (2) S/P cataract surgery Status: Resolved (3) S/P cholecystectomy Status: Resolved (4) S/P coronary artery stent placement Status: Chronic (5) S/P sinus surgery Status: Resolved (6) Status post total knee replacement, right Status: Resolved . Procedures: CT head CT abdomen and pelvis IV meds PT OT . Consultations: Urology with Dr. Thorne. ID with Aria Miller PA-C and Dr. Manning. . Medication Reconciliation New Medications: Fluconazole (Diflucan) 100 Mg Tab 100 MG PO DAILY for 40 Days, #40 TAB Started 04/20/16. Anticipated course of therapy 4-6 wks per ID. Will need Rx at time of DC from [facility]. Sertraline HCl (Sertraline HCl) 50 Mg Tab 50 MG PO DAILY for 30 Days, #30 TAB New dose. Will need new Rx at time of DC. Continued Medications: Ascorbic Acid (Vitamin C) 500 Mg Tab 500 MG PO DAILY Aspirin (Aspirin Ec) 81 Mg Tab 81 MG PO DAILY Carvedilol (Coreg) 6.25 Mg Tab 6.25 MG PO BID, TAB Cholecalciferol (Vitamin D3) 1,000 Unit Tab 1 TAB PO DAILY for 30 Days, #30 TAB 5 Refills Cyanocobalamin (Vitamin B-12) 1,000 Mcg Tab 1000 MCG PO DAILY Fexofenadine Hcl (Randa) 180 Mg Tab 180 MG PO DAILY PRN for Allergy Symptoms Finasteride (Finasteride) 5 Mg Tab 5 MG PO DAILY Fluticasone Propionate (Nasal) (Flonase Allergy Relief) 50 Mcg/Act Spr 2 SPRAYS BRITTON DAILY PRN for Allergy Symptoms Furosemide (Lasix) 20 Mg Tab 20 MG PO DAILY PRN for Fluid Accumulation/Weight Gain Glipizide Xl (Glucotrol Xl) 5 Mg Tab 5 MG PO QAM Hydrocodone/Acetaminophen 5MG/325MG ([place] 5MG/325MG) Tab 1 TABLET PO Q6H PRN for Pain, TAB Ipratropium Benedict (Atrovent 0.02% Soln) 2.5 Ml Nebu 2.5 ML NEB QID PRN for Shortness of Breath Isosorbide Mononitrate (Isosorbide Mononitrate ER) 30 Mg Tabcr 30 MG PO QAM Levalbuterol (Levalbuterol HCl) 1.25 Mg/3 Ml Nebu 1 VIAL INH QID PRN for Shortness of Breath Lorazepam (Lorazepam) 0.5 Mg Tab 0.5 MG PO HS PRN for Anxiety/Insomnia Metformin Hcl (Glucophage) 1,000 Mg Tab 1000 MG PO BID TAKE THIS MEDICATION WITH BREAKFAST AND EVENING MEAL Omeprazole (Prilosec) 20 Mg Cap 20 MG PO DAILY TAKE THIS MEDICATION ONCE DAILY 30-60 MINUTES BEFORE FIRST MEAL OF THE DAY Oxygen (Oxygen) Gas 3 LITERS NA UD HS and PRN activity Pentosan Polysulfate Sodium (Elmiron) 100 Mg Cap 100 MG PO BID, CAP Potassium Chloride (Potassium Chloride Er) 10 Meq Tab 10 MEQ PO DAILY PRN for When Taking Lasix, TAB Saw Miami (Serenoa Repens) (Saw [place]) 500 Mg Cap 1000 MG PO BID Sennosides-Docusate Sodium (Qc Stool Softener Plus La) 1 Tab Tab 2 TABS PO HS Simvastatin (Simvastatin) 20 Mg Tab 20 MG PO HS Tamsulosin HCl (Tamsulosin HCl) 0.4 Mg Cap 0.4 MG PO HS Discontinued Medications: Ciprofloxacin (Cipro) 250 Mg Tab 250 MG PO Q12, #20 PRESCRIBED 04/08/2016, TAKE DIRECTED UNTIL GONE Fish Oil (Benedict-3) 1 Ea Cap 1 CAP PO BID Sertraline HCl (Sertraline HCl) 100 Mg Tab 100 MG PO HS Admission Information HPI (per Admitting provider): This is an 81 year old male with PMH of BPH, atrial flutter, chronic systolic CHF, 2nd degree AV block s/p pacemaker, CAD, DM type 2, COPD on home oxygen, history of esophageal stricture, and other problems listed below who presents to the ED for urinary symptoms and generalized weakness. Pt follows with Dr. Thorne for urology and also has future appointment with a [facility] urologist. Patient's cooperation is limited but at bedside assists with history. Patient recently developed worsening of his chronic dysuria, frequency, urgency , incontinence. He was seen on 04/08 by Angela CASTILLO for these symptoms as well as scrotal pain which is now resolved. Scrotal US showed large right sided hydrocele. Patient had a UA positive to 3+ blood, 2+ protein, 3+ leuk esterase. He was started on Cipro for possible UTI. Urine culture from 04/08 grew mixed ashleigh. He has been taking Cipro without improvement. He currently c/o urethral and suprapubic pain. Patient has felt subjectively warm and cold at home. His temp was 99.4 in clinic. also notes that he has been generally weak, more anxious and irritable, and more forgetful than usual. Then today she was helping him get dressed and he started walking forward and lost his balance falling backwards onto his buttocks, scraping his back on the dresser. Pt denies dizziness, LOC, or head trauma. He typically ambulates with a cane. He reports chronic BAZAN in frontal and occipital regions for >1 year. states GUTIERREZ worsened about 1 month ago and patient had PFT's ordered by Kishan Avila PA-C , oxygen was increased to 3L HS and PRN activity, and patient plans for pulmonary rehab. Chronic productive cough is at baseline. He reports difficulty swallowing food and liquids described as "throat feels tight" when food goes down. No overt aspiration episodes. He had an esophageal stricture dilated in the past. He denies focal weakness, chest pain, dyspnea at rest, nausea, vomiting, diarrhea, gross hematuria, penile discharge, edema, back pain. . Physical Exam (per Admitting): General Appearance: WD/WN, + pertinent finding (mildly agitated 81 year old male, partially cooperative with history and exam) Head: normocephalic, atraumatic Eyes: normal inspection, PERRL, EOMI ENT: pharynx normal, + pertinent finding (hard of hearing) Neck: supple, trachea midline Respiratory/Chest: + decreased breath sounds, + pertinent finding (no wheezing, crackles, or rhonchi) Cardiovascular: regular rate, rhythm, no murmur, + pertinent finding (DP pulses 2+) Abdomen/GI: normal bowel sounds, soft, + pertinent finding (suprapubic tenderness) Genitourinary - Male: normal male genitalia, normal phallus, normal testicles Extremities/Musculoskelatal: no calf tenderness, normal capillary refill, no pedal edema 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 Recurrent urgency and dysuria week prior to admission. Cath urine culture as outpatient 04/08/16 grew mixed ashleigh. Initially treated with ciprofloxacin. Persistent symptoms 04/11. UA showed + leukocyte esterase, many WBCs, 10-[address] demonstrated bilateral renal calculi without ureteral obstruction, bilateral urothelial thickening within the collecting systems, persistent bladder wall thickening with adjacent infiltration consistent with cystitis. Repeat urine culture 04/11/16 negative. Urology consulted. Had cystoscopy within past year; no need to repeat at this time. Symptoms improved somewhat with IV aztreonam. Developed gross hematuria 04/17/15. Holding aspirin and DC fish oil. Case discussed with Urology. Received 7-8 days of aztreonam -discontinued. ? atypical urinary tract pathogen. Consulted ID. Repeat urine culture 04/18/16 grew Namrata albicans. Fluconazole started. Urine cytology negative. Renal calculi may be nidus of recurrent Namrata infections. Fluconazole x 4-6 weeks recommended. CBC and comprehensive metabolic profile while taking fluconazole. CONFUSION Altered mental status day of admission, most likely encephalopathy secondary to ciprofloxacin or UTI. Head CT did not show any acute process. Improved. WEAKNESS / AMBULATORY DYSFUNCTION Weakness, fall day of admission. Head CT did not show any acute process. Weakness probably multifactorial- deconditioning, infection, underlying cardiopulmonary diseases, meds, etc. PT / OT. CAD No anginal symptoms. Continue aspirin, carvedilol, nitrates, statin. CHRONIC LEFT VENTRICULAR SYSTOLIC HEART FAILURE Compensated. Continue carvedilol, nitrates, furosemide PRN. No DEEPAK or ARB due to CKD. COPD Stable. Continue nocturnal O2 + PRN with exertion. Nebs PRN. DM TYPE 2 Well-controlled. Hgb A1C = 6.0. Managed with [employer] coverage during hospital stay. FBS = 139 Resume usual oral meds at time of DC. SEBORRHEIC DERMATITIS Improved with ketoconazole cream. DEPRESSION Spouse wondering if sertraline could be contributing to fatigue. Decrease dose from 100 mg daily to 50 mg daily. VTE PROPHYLAXIS No anticoagulants due to hematuria. SCD's. Ambulate. DISPOSITION PT recommended skilled care. Case Management consulted. Arrangements being made for transfer to [facility] for skilled care. Internal Medicine follow-up with Dr. Candelaria. ID f/u with Aria Miller PA-C. Urology follow-up at [facility] scheduled. Components of this document were electronically copied and updated from the last documentation created by the undersigned in order to maintain a complete, accurate, and current record. Any portion of this document created by another author, if any, will be attributed to them. I certify that the record accurately reflects the patient's current status and services provided on the date of service. . Total time spent on discharge = 45 min. This includes examination of the patient, discharge planning, medication reconciliation, and communication with other providers. . Discharge Instructions Admission Reason for Admission: UTI Discharge Discharge Diagnosis / Problem: altered mental status, recurrent UTI's Discharge Goals Goal(s): Decrease discomfort, Improve function, Increase independence, Improve disease control Activity Recommendations Activity Level: Assistance Required (with walker and O2) Therapies: Physical Therapy, Occupational Therapy . Additional Information Patient informed of condition: No Advance Directives: No DNR: No Level of Care: Skilled Communicable Disease: No Prognosis: Improving Oxygen at (LPM): nocturnal O2 3 LPM, O2 3 LPM during the day with activity or for SOB Cantu Catheter: No Instructions / Follow-Up Instructions / Follow-Up FOLLOW-UP APPOINTMENTS: INTERNAL MEDICINE Dr. Candelaria- please make appointment at time of DC from [facility]. INFECTIOUS DISEASE Aria Miller PA-C in 2 weeks. Please call office for appointment. UROLOGY As scheduled. Thank you for receiving this patient in transfer. Please call if you have any questions. Christo Low . . Current Hospital Diet Patient's current hospital diet: Diabetes Type 2 Diet, AHA Diet (Heart Healthy) Discharge Diet Recommended Diet: AHA Diet (Heart Healthy), Diabetes Type 2 Diet Pending Studies Studies pending at discharge: no Physician Orders On Transfer Special Precautions: fall precautions . Vital Signs: routine . Weigh: routine . Additional Orders: Fingerstick blood sugars AC + HS. Please check CBC and comprehensive metabolic profile twice a week while taking fluconazole. . POLST Discussion: Not Applicable Laboratory Results Hemoglobin A1c Test 04/12/16 05:20 Range/Units Estimated Average Glucose 126 mg/dl Hemoglobin A1c 6.0 H 4.5-5.6 % Medical Emergencies . Who to Call and When: Medical Emergencies: If at any time you feel your situation is an emergency, please call 911 immediately. . Non-Emergent Contact Non-Emergency issues call your: Primary Care Provider . . "Provider Documentation" section prepared by Christo Low. Core Measure Problem Core Measures: None Additional Copies To Portia Candelaria M.D.
[2016-10-10] MEDS ORDERED: SENN8.6T15 PO (19:41)
[2016-11-05] MEDS ORDERED: GABA-112 PO (11:40)
[2017-01-09] MEDS ORDERED: BOPS PR (14:48)
[2017-01-09] MEDS ORDERED: FURO-85 PO (14:48)
[2017-01-09] MEDS ORDERED: GLIP-197 PO (14:48)
[2017-01-09] MEDS ORDERED: GABA-112 PO (14:48)
[2017-01-09] MEDS ORDERED: ESCI1TAB10 PO (14:48)
[2017-01-09] MEDS ORDERED: POTA10TA PO (14:48)
[2017-01-19] MEDS ORDERED: PHEN-775 PO (14:00)
[2017-01-19] MEDS ORDERED: HYDR-3714 PO (14:00)
[2017-01-19] MEDS ORDERED: CIPR-255 PO (14:00)
== END 2016-04-21 16:52 | DRG 689 ==
LOC: ENRESERVTM → ENRESERVDT → EDBD 14:42 → C.EDC 14:43 → C.MS2W 19:48
PROVIDERS: ADMIT Hospitalist; ATTEND Hospitalist
DX: N39.0 Urinary tract infection, site not specified (principal); G93.41 Metabolic encephalopathy; I12.0 Hypertensive chronic kidney disease with stage 5 chronic kidney disease or end stage renal disease; J96.11 Chronic respiratory failure with hypoxia; I50.42 Chronic combined systolic (congestive) and diastolic (congestive) heart failure; Z96.651 Presence of right artificial knee joint; I25.10 Atherosclerotic heart disease of native coronary artery without angina pectoris; J44.9 Chronic obstructive pulmonary disease, unspecified; Z99.81 Dependence on supplemental oxygen; Z85.828 Personal history of other malignant neoplasm of skin; F32.9 Major depressive disorder, single episode, unspecified; E78.5 Hyperlipidemia, unspecified; K21.9 Gastro-esophageal reflux disease without esophagitis; I25.5 Ischemic cardiomyopathy; Z95.0 Presence of cardiac pacemaker; G47.33 Obstructive sleep apnea (adult) (pediatric); Z90.49 Acquired absence of other specified parts of digestive tract; Z95.5 Presence of coronary angioplasty implant and graft; Z82.49 Family history of ischemic heart disease and other diseases of the circulatory system; Z83.3 Family history of diabetes mellitus; Z87.891 Personal history of nicotine dependence; Z88.0 Allergy status to penicillin; Z88.5 Allergy status to narcotic agent; Z88.1 Allergy status to other antibiotic agents; Z79.82 Long term (current) use of aspirin; Z79.899 Other long term (current) drug therapy; Z79.84 Long term (current) use of oral hypoglycemic drugs; E11.22 Type 2 diabetes mellitus with diabetic chronic kidney disease; N40.1 Benign prostatic hyperplasia with lower urinary tract symptoms; N20.0 Calculus of kidney; N18.3 Chronic kidney disease, stage 3 (moderate); R13.10 Dysphagia, unspecified; R31.29 Other microscopic hematuria; E78.00 Pure hypercholesterolemia, unspecified; Z87.01 Personal history of pneumonia (recurrent); E66.9 Obesity, unspecified; Z68.31 Body mass index [BMI] 31.0-31.9, adult; H91.90 Unspecified hearing loss, unspecified ear; N43.3 Hydrocele, unspecified; R26.9 Unspecified abnormalities of gait and mobility; L21.9 Seborrheic dermatitis, unspecified; I70.1 Atherosclerosis of renal artery; R30.0 Dysuria; R35.0 Frequency of micturition; R32 Unspecified urinary incontinence; R39.15 Urgency of urination; R35.1 Nocturia; R19.5 Other fecal abnormalities

== ENCOUNTER 2016-07-03 14:17 | Emergency (ER) | payer OTHER ==
[~2016-07-03] VITALS: Ht 180.3 cm; Wt 100.0 kg
[~2016-07-03 14:17] MED LIST changes: -ACET-1256 PO; +ASCO-63 PO; -ATRINS NEB; +ATRINSX NEB; +ATV5X PO; +CARV6.252 PO; -CFT250 PO; +CHOL1000 PO; -CHOL200010 PO; -CRG625 PO; -DICL1GEL28 TOP; +FEXO1TAB46 PO; -FINA5TAB PO; +FLM4 PO; -GARL400T4 PO; +ISOS-11 PO; -ISOS30TA3 PO; -KETO2SHA TOP; -LEVA1NEB19 INH; -LORA0.5T12 PO; -OMEG10007 PO; +OMEP20CA9 PO; +POTA-74 PO; +PRS5 PO; -RANI300T2 PO; -SENN8.6T15 PO; +SENNTAB PO; -SERT-234 PO; +SIMV-151 PO; -SIMV20TA2 PO; -TAMS0.4C38 PO; +XPNINS125 INH
[2016-07-03 14:32] VITALS: TEMP 36.5; Ht 180.3 cm; Wt 100.0 kg
[2016-07-03 14:43] VITALS: O2SAT 94
[2016-07-03] MEDS ORDERED: GARL1TAB13 PO (14:59)
[2016-07-03] MEDS ORDERED: OMG3 PO (14:59)
[2016-07-03] MEDS ORDERED: RANI300T2 PO (14:59)
[2016-07-03] MEDS ORDERED: SERT50TA PO (15:01)
[2016-07-03 15:21] LABS: BASO % 0.3 %; BASO ABS # 0.02 K/uL (0-0.2); COMPLETE YES; HEMATOCRIT 36.2 % (42-52); IG% 0.4 %; LYMPH % 16.5 %; LYMPH ABS # 1.18 K/uL (1.2-3.4); MEAN CELL VOLUME 90.5 fL (80-100); MONO % 9.5 %; NEUT % 71.3 %; PLATELET COUNT 185 K/uL (130-400); WHITE BLOOD COUNT 7.15 K/uL (4.8-10.8)
[2016-07-03 15:33] LABS: BUN/CREATININE RATIO 12.6 (10-20); CALCIUM 8.5 mg/dl (8.5-10.1); CREATININE 1.4 mg/dl (0.60-1.40); POTASSIUM 4.1 mmol/L (3.5-5.1)
[2016-07-03] MEDS ORDERED: SODIUM CHLORIDE 0.9% 1000ML 1,000 ML IV STA (16:04)
[2016-07-03] MEDS ORDERED: SODIUM CHLORIDE 0.9% 1000ML 250 ML IV STA (16:04)
[2016-07-03] MEDS ORDERED: HYDROCODONE/ACETAMOPHEN 5/325MG TAB PO STA (16:04)
--- NOTE | 2016-07-03 16:21 | EMERGENCY ROOM VISIT NOTE ---
History Report prepared by Britt: Ced Carreno Under the Supervision of: Dr. Ariel Faye M.D. First contact with patient: 15:58 Chief Complaint: URINARY SYMPTOMS Stated Complaint: BACK PAIN Nursing Triage Summary: Patient arrives via EMS. c/c of right sided intermittent flank pain with associated dysuria, polyuria, and burning during urination. Patient has chronic UTIs and follows with Infectious disease. Patient recent finished a 40 day course of diflucan. Patient denies any nausea/vomiting, chest pain, SOB. Patient awake and oriented. History of Present Illness The patient is a 81 year old male who presents to the Emergency Room with complaints of constant urinary symptoms for the past 2 days. The patient additionally is complaining of right sided back pain, burning with urination, and hematuria. The patient's states that the patient has not been able to sleep recently, and his testicles are swollen and in pain. The additionally states that when he walks the pain is worsened. The patient states that he is incontinent, and this is not new, and he does not have a catheter in. The states that the patient had a yeast infection a couple months ago, and he just got off antibiotics a few weeks ago. Additionally, the states that the patient has cysts in his scrotum and he has kidney stones. The patient states that he is nauseous. He denies vomiting, fevers, chills, and chest pain. The patient states that he constantly has shortness of breath, and this is not new, and he is on oxygen at night and while walking. The patient states that he has been taking hydrocodone and Excedrin, and they have helped. Source of History: patient, spouse/significant other Onset: two days ago Position: other (global) Quality: other (urinary symptoms) Timing: constant Modifying Factors (Worsening): other (walking) Associated Symptoms: + nausea, No chest pain, No chills, No fevers, No vomiting Review of Systems See HPI for pertinent positives & negatives. A total of 10 systems reviewed and were otherwise negative. Past Medical & Surgical Medical Problems: (1) Basal cell carcinoma (2) BPH (benign prostatic hyperplasia) (3) CAD (coronary artery disease) (4) Chronic systolic (congestive) heart failure (5) Confusion (6) COPD, severe (7) Depression (8) Diabetes mellitus (9) Dyslipidemia (10) Esophageal stricture (11) GERD (gastroesophageal reflux disease) (12) High degree atrioventricular block (13) Ischemic cardiomyopathy (14) DENISHA (obstructive sleep apnea) (15) Renal artery stenosis (16) UTI (urinary tract infection) Surgical Problems: (1) H/O hand surgery (2) S/P cataract surgery (3) S/P cholecystectomy (4) S/P coronary artery stent placement (5) S/P sinus surgery (6) Status post total knee replacement, right Old medical records were reviewed. Nurse's notes were reviewed and I agree with. Family History Cardiac disorder FATHER BROTHER SISTER Diabetes mellitus BROTHER SISTER Hypertension FATHER SISTER Social History Smoking Status: Never Smoker Alcohol Use: none Marital Status: Housing Status: lives with significant other Occupation Status: retired Current/Historical Medications Scheduled Ascorbic Acid (Vitamin C), 500 MG PO DAILY Carvedilol (Coreg), 12.5 MG PO BID Cholecalciferol (Vitamin D3), 1 TAB PO DAILY Ciprofloxacin Hcl (Cipro), 500 MG PO BID Cyanocobalamin (Vitamin B-12), 1,000 MCG PO DAILY Finasteride (Finasteride), 5 MG PO DAILY Fish Oil (Fish Oil), 1 CAP PO BID Garlic (Hm Garlic), 1,000 MG PO DAILY Glipizide Xl (Glucotrol Xl), 0.5 TAB PO QAM Isosorbide Mononitrate (Isosorbide Mononitrate ER), 30 MG PO QAM Metformin Hcl (Glucophage), 1,000 MG PO BID Oxygen (Oxygen), 3 LITERS NA UD Pentosan Polysulfate Sodium (Elmiron), 100 MG PO BID Ranitidine (Zantac), 300 MG PO HS [place] ([place]) (Saw [place]), 1,000 MG PO BID Sertraline (Zoloft), 50 MG PO DAILY Simvastatin (Simvastatin), 20 MG PO HS Tamsulosin HCl (Tamsulosin HCl), 0.4 MG PO HS Scheduled PRN Fluticasone Propionate (Nasal) (Flonase Allergy Relief), 2 SPRAYS [place] DAILY PRN for Allergy Symptoms Furosemide (Lasix), 20 MG PO DAILY PRN for Fluid Accumulation/Weight Gain Ipratropium [place] (Atrovent 0.02% Soln), 2.5 ML NEB QID PRN for Shortness of Breath Levalbuterol (Levalbuterol HCl), 1 VIAL INH QID PRN for Shortness of Breath Potassium Chloride (Potassium Chloride Er), 20 MEQ PO DAILY PRN for When Taking Lasix Allergies Coded Allergies: Penicillins (Verified Allergy, Mild, RASH, 07/03/16) Clindamycin (Verified Allergy, Unknown, UNKNOWN, 07/03/16) Morphine (Verified Adverse Reaction, Intermediate, mental status change, ) Oxycodone (Verified Adverse Reaction, Mild, CONFUSION, 07/03/16) Physical Exam Vital Signs Date Time Temp Pulse Resp B/P Pulse Ox O2 Delivery O2 Flow Rate FiO2 07/03/16 19:50 74 16 120/65 99 07/03/16 17:51 77 20 120/61 96 Nasal Cannula 2.0 07/03/16 15:43 74 07/03/16 14:49 86 07/03/16 14:43 94 Room Air 07/03/16 14:32 36.5 91 20 153/75 99 Room Air Physical Exam General: Non-ill older male in no acute distress HEENT: Normal cephalic atraumatic. Pupils are equal round and reactive to light. Sclerae are anicteric. Extraocular movements are intact. Oropharynx is pink with moist mucous membranes. No swelling of the mouth lips or tongue. Neck: Supple with a midline trachea. No meningeal signs or stiffness, no JVD or bruits. No Stridor. Chest: Clear to auscultation bilaterally. No wheezes or rhonchi. No increased work of breathing. Heart: regular rate and rhythm. Abdomen: Ventral hernia which is not red or warm or significantly tender. Soft nontender, nondistended without rebound guarding or rigidity. : Small redness to scrotum. Mild tendernes from urinary incontinence. Testicles were abnormal Extremities: No cyanosis clubbing or edema. No calf tenderness or assymetry Spine/Back. Non tender to palpation. No CVA tenderness Skin: Good turgor without rashes. Neurologic exam: Cranial nerves two through 12 are intact. Motor and sensation are intact and symmetrical throughout. Medical Decision & Procedures ER Provider Diagnostic Interpretation: CT results as stated below per my review and radiologist interpretation: ABDOMEN AND PELVIS CT WITHOUT CONTRAST CT DOSE: 1726.13 mGy.cm HISTORY: Pain rt flank pain TECHNIQUE: Multiaxial CT images of the abdomen and pelvis were performed without the use of intravenous and oral contrast according to the standard department stone protocol. COMPARISON STUDY: 04/11/2016 FINDINGS: Bilateral pleural effusions and basilar atelectatic change unaltered from the prior exam. Mild cortical scarring of the liver which may indicate an early cirrhotic change. Findings of a prior cholecystectomy. Spleen is uniform. Several left renal calcifications with mild chronic fullness left renal collecting system. Nonobstructing calcification measuring 7 mm lower pole left kidney. Interval development/progression of of mild to moderate right hydroureteronephrosis. The right ureter is progressively distended as compared to the prior exam although an obstructing etiology is not seen. This is most likely secondary to a recently passed calculus. The pancreas appears unremarkable. There is subtle infiltrative change of the root of the mesentery which is considered chronic and unchanged in this patient. Bowel pattern is considered nonobstructive. There are scattered colonic diverticuli with no evidence for diverticulitis. The appendix is normal. There are findings of chronic sigmoid diverticulosis. IMPRESSION: 1. Chronic scarring and nephrocalcinosis of the kidneys bilaterally. 2. Mild increase in fullness of the right renal collecting system and right ureter as compared to the prior study suggesting a recently passed calculus. 3. Chronic colonic diverticulosis. 4. Mild chronic bladder wall thickening. 5. Chronic and unchanged bilateral pleural effusions with bibasilar atelectatic change. 6. 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 07/03/2016 5:14 PM Dictated Date/Time: 07/03/2016 5:06 PM Laboratory Results 07/03/16 14:55 Red Blood Count 4.00, Mean Corpuscular Volume 90.5, Mean Corpuscular Hemoglobin 29.0, Mean Corpuscular Hemoglobin Concent 32.0, Mean Platelet Volume 9.0, Neutrophils (%) (Auto) 71.3, Lymphocytes (%) (Auto) 16.5, Monocytes (%) (Auto) 9.5, Eosinophils (%) (Auto) 2.0, Basophils (%) (Auto) 0.3, Neutrophils # (Auto) 5.10, Lymphocytes # (Auto) 1.18, Monocytes # (Auto) 0.68, Eosinophils # (Auto) 0.14, Basophils # (Auto) 0.02 07/03/16 14:55 Test 07/03/16 14:55 07/03/16 17:40 White Blood Count 7.15 K/uL (4.8-10.8) Red Blood Count 4.00 M/uL (4.7-6.1) Hemoglobin 11.6 g/dL (14.0-18.0) Hematocrit 36.2 % (42-52) Mean Corpuscular Volume 90.5 fL (80-100) Mean Corpuscular Hemoglobin 29.0 pg (25-34) Mean Corpuscular Hemoglobin Concent 32.0 g/dl (32-36) Platelet Count 185 K/uL (130-400) Mean Platelet Volume 9.0 fL (7.4-10.4) Neutrophils (%) (Auto) 71.3 % Lymphocytes (%) (Auto) 16.5 % Monocytes (%) (Auto) 9.5 % Eosinophils (%) (Auto) 2.0 % Basophils (%) (Auto) 0.3 % Neutrophils # (Auto) 5.10 K/uL (1.4-6.5) Lymphocytes # (Auto) 1.18 K/uL (1.2-3.4) Monocytes # (Auto) 0.68 K/uL (0.11-0.59) Eosinophils # (Auto) 0.14 K/uL (0-0.5) Basophils # (Auto) 0.02 K/uL (0-0.2) RDW Standard Deviation 47.8 fL (36.4-46.3) RDW Coefficient of Variation 14.5 % (11.5-14.5) Immature Granulocyte % (Auto) 0.4 % Immature Granulocyte # (Auto) 0.03 K/uL (0.00-0.02) Anion Gap 11.0 mmol/L (3-11) Est Creatinine Clear Calc Drug Dose 49.0 ml/min Estimated GFR () 53.8 Estimated GFR (Non- 46.5 BUN/Creatinine Ratio 12.6 (10-20) Calcium Level 8.5 mg/dl (8.5-10.1) Total Bilirubin 0.2 mg/dl (0.2-1) Aspartate Amino Transf (AST/SGOT) 8 U/L (15-37) Alanine Aminotransferase (ALT/SGPT) 13 U/L (12-78) Alkaline Phosphatase 71 U/L (45-117) Total Protein 6.3 gm/dl (6.4-8.2) Albumin 3.1 gm/dl (3.4-5.0) Globulin 3.2 gm/dl (2.5-4.0) Albumin/Globulin Ratio 1.0 (0.9-2) Urine Color YELLOW Urine Appearance CLOUDY (CLEAR) Urine pH 6.0 (4.5-7.5) Urine Specific [place] 1.025 (1.000-1.030) Urine Protein 2+ (NEG) Urine Glucose (UA) NEG (NEG) Urine Ketones NEG (NEG) Urine Occult Blood 3+ (NEG) Urine Nitrite NEG (NEG) Urine Bilirubin NEG (NEG) Urine Urobilinogen NEG (NEG) Urine Leukocyte Esterase LARGE (NEG) Urine RBC >30 /hpf (0-4) Urine WBC >30 /hpf (0-5) Urine Epithelial Cells >30 /lpf (0-5) Urine Bacteria 1+ (NEG) Date/Time Source Procedure Growth Status 07/03/16 17:40 Urine,Catheterized Urine Culture - Final THREE TYPES OF ORGANISMS PRESENT, ALL... Complete Lab results as reviewed by me Medications Administered Medications (Trade) Dose Ordered Sig/Tonia Route Start Time Stop Time Status Last Admin Dose Admin Sodium Chloride 250 ml @ 999 mls/hr Q16M STAT IV 07/03/16 16:04 07/03/16 16:19 DC 07/03/16 16:35 999 MLS/HR Sodium Chloride (Nss 1000ml) 1,000 ml @ 100 mls/hr Q10H STAT IV 07/03/16 16:04 07/03/16 20:10 DC 07/03/16 18:06 100 MLS/HR Acetaminophen/ Hydrocodone Bitart ([place] 5/325 Tab) 1 tab ONE STAT PO 07/03/16 16:04 07/03/16 16:07 DC 07/03/16 16:35 1 TAB Ciprofloxacin (Cipro 500MG Home Pack) 1 homepack UD ONCE PO 07/03/16 19:45 07/03/16 19:46 DC 07/03/16 19:43 1 HOMEPACK ED Course 1558: Past medical records reviewed. The patient was evaluated in room B7, and a complete history and physical examination were performed. 1604: [place] 5/325 Tab 1 tab PO, Sodium Chloride 1000 ml @ 100 mls/hr IV, Sodium Chloride 250 ml @ 999 mls/hr IV 1923: I discussed the patient's case with Dr. Thorne, Urology, and she states that the patient has chronic dysuria, and no one can figure out how to treat it locally. 1930: Upon reevaluation, the patient is feeling better. I discussed the results and treatment plan with him. He verbalized agreement of the treatment plan. The patient was discharged home. 1944: Cipro 500mg 1 Home Pack PO Medical Decision Differentials include, but are not limited to; UTI, kidney stone, sepsis, infection, electrolyte or metabolic abnormality. This patient comes in as described above. he has some urinary discomfort. He's had this chronically and has been on antibiotics as well as antifungals for this without much relief. He's had no fever. IV access was established and blood work was obtained. He has nothing clinically to suggest that he has pyelonephritis. He has no obstructive uropathy seen on imaging. He has no significant white count or fever to suggest infection. His urinalysis does suggest a possible infection however it's difficult to say for sure. I discussed the case with Dr. Thorne. She said we could treat him with antibiotics although she says that nobody seems to be able to get his symptoms under control the matter what they do. The patient has been referred to [facility] for further evaluation and is awaiting that apparently. I will start him on antibiotics cover the possibility for UTI should rest and drink plenty fluids return if: worsening of symptoms, any new problems or concerns follow up with his doctor this week for recheck. Consults Time Called: 1850 Consulting Physician: Dr. Thorne, Urology Returned Call: [phone] I discussed the patient's case with Dr. Thorne, Urology, and she states that the patient has chronic dysuria, and no one can figure out how to treat it locally. Impression Primary Impression: UTI (urinary tract infection) Scribe Attestation The scribe's documentation has been prepared under my direction and personally reviewed by me in its entirety. I confirm that the note above accurately reflects all work, treatment, procedures, and medical decision making performed by me. Departure Information Dispostion Home / Self-Care Prescriptions Ciprofloxacin Hcl (CIPRO) 500 Mg Tab 500 MG PO BID, #20 TAB Prov: Ariel Faye M.D. 07/03/16 Referrals Portia Candelaria M.D. (PCP) Forms HOME CARE DOCUMENTATION FORM, IMPORTANT VISIT INFORMATION Patient Instructions My [facility] Additional Instructions Rest. Drink plenty of fluids. Return if: Worsening of symptoms, increasing pain, fever or chills, any new problems or concerns. Continue current pain medication. Be careful after taking as it can make you drowsy Use Cipro 500 mg twice a day for 10 daysantibiotic Probably doctor Monday for recheck
--- NOTE | 2016-07-03 17:15 | DIAGNOSTIC IMAGING REPORT ---
ABDOMEN AND PELVIS CT WITHOUT CONTRAST CT DOSE: 1726.13 mGy.cm HISTORY: Pain rt flank pain TECHNIQUE: Multiaxial CT images of the abdomen and pelvis were performed without the use of intravenous and oral contrast according to the standard department stone protocol. COMPARISON STUDY: 04/11/2016 FINDINGS: Bilateral pleural effusions and basilar atelectatic change unaltered from the prior exam. Mild cortical scarring of the liver which may indicate an early cirrhotic change. Findings of a prior cholecystectomy. Spleen is uniform. Several left renal calcifications with mild chronic fullness left renal collecting system. Nonobstructing calcification measuring 7 mm lower pole left kidney. Interval development/progression of of mild to moderate right hydroureteronephrosis. The right ureter is progressively distended as compared to the prior exam although an obstructing etiology is not seen. This is most likely secondary to a recently passed calculus. The pancreas appears unremarkable. There is subtle infiltrative change of the root of the mesentery which is considered chronic and unchanged in this patient. Bowel pattern is considered nonobstructive. There are scattered colonic diverticuli with no evidence for diverticulitis. The appendix is normal. There are findings of chronic sigmoid diverticulosis. IMPRESSION: 1. Chronic scarring and nephrocalcinosis of the kidneys bilaterally. 2. Mild increase in fullness of the right renal collecting system and right ureter as compared to the prior study suggesting a recently passed calculus. 3. Chronic colonic diverticulosis. 4. Mild chronic bladder wall thickening. 5. Chronic and unchanged bilateral pleural effusions with bibasilar atelectatic change. 6. 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 07/03/2016 5:14 PM Dictated Date/Time: 07/03/2016 5:06 PM
[2016-07-03 18:27] LABS: MANUAL MICROSCOPIC REQUIRED? YES; URINE APPEARANCE CLOUDY (CLEAR); URINE BILIRUBIN NEG (NEG); URINE COLOR YELLOW; URINE NITRITE NEG (NEG); URINE SPECIFIC GRAVITY 1.025 (1.000-1.030); UROBILINOGEN NEG (NEG)
[2016-07-03 18:29] LABS: REVIEW REQ? NO
[2016-07-03 18:35] LABS: URINE BACTERIA 1+ (NEG); URINE RBC >30 /hpf (0-4); URINE WBC >30 /hpf (0-5)
[2016-07-03] MEDS ORDERED: CIPR-255 PO (19:33)
[2016-07-03] MEDS ORDERED: CIPROFLOXACIN 500MG HOME PACK PO ONE (19:45)
[2016-07-03 19:50] VITALS: BP 120/65; PULSE 74; O2SAT 99
[2016-10-10] MEDS ORDERED: SENN8.6T15 PO (19:41)
[2016-10-13] MEDS ORDERED: GLIP-197 PO ×2 (15:31→15:33)
[2016-10-13] MEDS ORDERED: SERT-234 PO ×3 (15:36→15:47)
[2016-11-05] MEDS ORDERED: GABA-112 PO (11:40)
[2017-01-09] MEDS ORDERED: BOPS PR (14:48)
[2017-01-09] MEDS ORDERED: GLIP-197 PO (14:48)
[2017-01-09] MEDS ORDERED: ESCI1TAB10 PO (14:48)
[2017-01-09] MEDS ORDERED: GABA-112 PO (14:48)
[2017-01-09] MEDS ORDERED: POTA10TA PO (14:48)
[2017-01-09] MEDS ORDERED: FURO-85 PO (14:48)
[2017-01-19] MEDS ORDERED: CIPR-255 PO (14:00)
[2017-01-19] MEDS ORDERED: PHEN-775 PO (14:00)
[2017-01-19] MEDS ORDERED: HYDR-3714 PO (14:00)
== END 2016-07-03 19:52 | disposition home or self-care (01) ==
LOC: EDBD 14:17 → C.EDB 14:18
DX: N39.0 Urinary tract infection, site not specified (principal); I25.10 Atherosclerotic heart disease of native coronary artery without angina pectoris; N40.0 Benign prostatic hyperplasia without lower urinary tract symptoms; Z85.828 Personal history of other malignant neoplasm of skin; I50.22 Chronic systolic (congestive) heart failure; R41.0 Disorientation, unspecified; E11.9 Type 2 diabetes mellitus without complications; F32.9 Major depressive disorder, single episode, unspecified; E78.5 Hyperlipidemia, unspecified; K21.9 Gastro-esophageal reflux disease without esophagitis; I25.5 Ischemic cardiomyopathy; G47.33 Obstructive sleep apnea (adult) (pediatric); I70.1 Atherosclerosis of renal artery; Z96.651 Presence of right artificial knee joint; Z82.49 Family history of ischemic heart disease and other diseases of the circulatory system; Z83.3 Family history of diabetes mellitus; Z79.899 Other long term (current) drug therapy

== ENCOUNTER 2016-10-10 16:43 | Inpatient (IN) | payer OTHER ==
[~2016-10-10] VITALS: Ht 177.8 cm; Wt 95.3 kg
[~2016-10-10 16:43] MED LIST changes: -ASPI81TA28 PO; -ATV5X PO; +CIPR-255 PO; -FEXO1TAB46 PO; +GARL1TAB13 PO; -HYDR-5688 PO; -OMEP20CA9 PO; +OMG3 PO; +RANI300T2 PO; -SENNTAB PO; +SERT50TA PO
--- NOTE | 2016-10-10 17:15 | EMERGENCY ROOM VISIT NOTE ---
History Report prepared by Britt: Charlee Ceron Under the Supervision of: Dr. Adela Suero D.O. First contact with patient: 16:46 Chief Complaint: ALTERED MENTAL STATUS Stated Complaint: ALTERED MENTAL STATUS History of Present Illness The patient is an 81 year old male who presents to the Emergency Room with complaints of a sudden change in mental status this afternoon around 1500. Per nursing staff, the patient typically sleeps during the day, reporting that he went to bed around 0900. Nursing staff reports that the patient woke at 1500 and the patient's reported difficulty speaking, but normal strength. Nursing staff reports that the patient's speech has improved during his ambulance ride to the emergency department. Per EMS notes, the patient takes 81 mg of aspirin daily. Nursing staff states that the patient took an Ambien prior to going to bed this morning. The patient reports chronic urinary symptoms, reporting pain with urination and passing clots in his urine. He reports a history of polyp removal from his sinuses and states that he does typically have a headache. The patient states that he did not feel normal when he went to sleep this morning, but denies ever feeling normal going to bed. He states that when he woke up, he felt confused and had difficulty speaking, noting that his confusion has persisted. The patient denies any chest pain, shortness of breath, nausea, or vomiting. He reports that he uses a can or a wheelchair to assist with ambulation. The patient reports that he wears 2L of supplemental nasal cannula oxygen at home. He states that he uses breathing treatments at home. The patient reports a history of COPD. He states that he has had visual disturbances today. History is limited due to the patient being a poor historian. Source of History: patient, EMS, nursing staff Onset: this afternoon around 1500 Position: other (global) Quality: other (change in mental status) Timing: other (sudden) Associated Symptoms: + urinary symptoms (pain with urination, passing clots in his urine), No chest pain, No SOB, No nausea, No vomiting Note: Associated symptoms: confusion, difficulty speaking Review of Systems History is limited due to the patient being a poor historian. Past Medical & Surgical Medical Problems: (1) Basal cell carcinoma (2) BPH (benign prostatic hyperplasia) (3) CAD (coronary artery disease) (4) Carotid artery plaque (5) Chronic systolic (congestive) heart failure (6) Confusion (7) COPD, severe (8) Depression (9) Diabetes mellitus (10) Dyslipidemia (11) Esophageal stricture (12) GERD (gastroesophageal reflux disease) (13) High degree atrioventricular block (14) Ischemic cardiomyopathy (15) DENISHA (obstructive sleep apnea) (16) Renal artery stenosis (17) Renal calculi (18) Slurred speech (19) UTI (urinary tract infection) Surgical Problems: (1) H/O hand surgery (2) S/P cataract surgery (3) S/P cholecystectomy (4) S/P coronary artery stent placement (5) S/P sinus surgery (6) Status post total knee replacement, right Family History Cardiac disorder FATHER BROTHER SISTER Diabetes mellitus BROTHER SISTER Hypertension FATHER SISTER Social History Smoking Status: Never Smoker Smokeless Tobacco Use: Yes Alcohol Use: none Marital Status: Housing Status: lives with significant other Occupation Status: retired Current/Historical Medications Scheduled Aspirin (Aspirin), 81 MG PO DAILY Cholecalciferol (Vitamin D3), 2,000 UNITS PO DAILY Cyanocobalamin (Vitamin B-12), 1,000 MCG PO DAILY Diclofenac Sodium (Topical) (Diclofenac Sodium), 2 GM TOP BID Finasteride (Finasteride), 5 MG PO DAILY Gabapentin (Neurontin), 100 MG PO HS Glipizide (Glipizide Er), 1 TAB PO DAILY Home O2 Therapy (Oxygen), 3 LITERS NA UD Isosorbide Mononitrate (Isosorbide Mononitrate ER), 30 MG PO QAM Ketoconazole (Ketoconazole), 1 APPLN TOP DAILY Ketoconazole (Ketoconazole), 1 APPLN TOP UD Metformin Hcl (Glucophage), 1,000 MG PO BIDM Metoprolol Succinate (Toprol Xl), 50 MG PO DAILY Mirabegron (Myrbetriq Er), 50 MG PO QPM Pantoprazole (Protonix), 40 MG PO DAILY Pentosan Polysulfate Sodium (Elmiron), 100 MG PO BID Saw Rico (Serenoa Repens) (Saw Rico), 1,000 MG PO BID Sennosides-Docusate Sodium (Qc Stool Softener Plus La), 2 TABS PO HS Sertraline HCl (Sertraline HCl), 50 MG PO HS Simvastatin (Simvastatin), 20 MG PO HS Tamsulosin HCl (Tamsulosin HCl), 0.4 MG PO HS Scheduled PRN Fexofenadine Hcl (Randa), 180 MG PO DAILY PRN for ALLERGIES Fluticasone Propionate (Nasal) (Flonase Allergy Relief), 2 SPRAYS BRITTON DAILY PRN for Allergy Symptoms Ipratropium [place] (Atrovent 0.02% Soln), 2.5 ML NEB QID PRN for Shortness of Breath Levalbuterol (Levalbuterol HCl), 1 VIAL INH 2-3XDAILY PRN for Shortness of Breath Allergies Coded Allergies: Penicillins (Verified Allergy, Mild, RASH, 07/03/16) Clindamycin (Verified Allergy, Unknown, UNKNOWN, 07/03/16) Morphine (Verified Adverse Reaction, Intermediate, mental status change, ) Oxycodone (Verified Adverse Reaction, Mild, CONFUSION, 07/03/16) Physical Exam Vital Signs Date Time Temp Pulse Resp B/P (MAP) Pulse Ox O2 Delivery O2 Flow Rate FiO2 10/10/16 20:01 81 20 140/70 98 Room Air 10/10/16 19:31 121/98 10/10/16 19:30 82 18 10/10/16 19:01 139/70 10/10/16 19:00 79 10/10/16 18:26 78 20 114/66 94 Room Air 10/10/16 16:56 99 10/10/16 16:54 97 Nasal Cannula 3.0 10/10/16 16:54 36.8 95 16 131/60 97 Nasal Cannula 3.0 Physical Exam GENERAL: alert, well appearing, well nourished, no distress, non-toxic EYE EXAM: normal conjunctiva, PERRL and EOM's grossly intact OROPHARYNX: no exudate, no erythema, lips, buccal mucosa, and tongue normal and mucous membranes are dry, poor dentition, evidence of residual chewing tobacco. NECK: supple, no nuchal rigidity, no adenopathy, non-tender LUNGS: Decreased lung sounds bilatearlly, no wheezes, rhonchi, or ralels. Normal chest wall mechanics HEART: no murmurs, S1 normal and S2 normal ABDOMEN: abdomen soft, non-tender, normo-active bowel sounds, no masses, no rebound or guarding. BACK: Back is symmetrical on inspection and there is no deformity, no midline tenderness, no CVA tenderness. SKIN: no rashes and no bruising UPPER EXTREMITIES: upper extremities are grossly normal. LOWER EXTREMITIES: 1+ bilateral lower extremity edema, decreased range of motion bilateral lower extremities, patient states is chronic. NEURO EXAM: Normal sensorium, cranial nerves II-XII grossly intact, normal speech, no dysphagia, no facial droop, mild memory difficulty, oriented, no ataxia, no gross weakness of arms. No drift. Finger to nose intact. Gross sensation intact. Medical Decision & Procedures ER Provider Diagnostic Interpretation: Radiology results have been interpreted by the radiologist and reviewed by me. HEAD CT NONCONTRAST CT DOSE: 823.94 mGycm HISTORY: Change in mental status. TECHNIQUE: Multiaxial CT images of the head were performed without the use of intravenous contrast. Automated exposure control was utilized for this study. Comparison: Head CT 04/11/2016. Findings: The paranasal sinuses and mastoid air cells are clear. The calvarium and skull base are intact. The ventricles and sulci are within normal limits. There is no mass, hematoma, midline shift, or acute infarct. Impression: No acute intracranial abnormality. Electronically signed by: Dennis Taveras M.D. 10/10/2016 5:59 PM Dictated Date/Time: 10/10/2016 5:57 PM CHEST 2 VIEWS ROUTINE HISTORY: Short of breath. Cough. COMPARISON: Chest 04/11/2016. FINDINGS: Left-sided pacemaker. The heart remains top normal in size. No pneumothorax. Small bilateral pleural effusions persist. Bibasilar linear densities have slightly improved. This favors resolving atelectasis. There is a 2 cm nodular density within the right midlung zone. IMPRESSION: 1. No change in the small bilateral pleural effusions. 2. Slight improvement in the bibasilar densities suggesting resolving atelectasis. 3. There is a a 2.0 cm nodular density within the right midlung zone. Follow-up nonemergent dedicated chest CT is recommended to exclude a pulmonary neoplasm. Electronically signed by: Dennis Taveras M.D. 10/10/2016 7:18 PM Dictated Date/Time: 10/10/2016 7:14 PM Laboratory Results 10/10/16 16:23 Red Blood Count 4.15, Mean Corpuscular Volume 92.0, Mean Corpuscular Hemoglobin 28.9, Mean Corpuscular Hemoglobin Concent 31.4, Mean Platelet Volume 9.4, Neutrophils (%) (Auto) 64.1, Lymphocytes (%) (Auto) 24.1, Monocytes (%) (Auto) 8.8, Eosinophils (%) (Auto) 2.0, Basophils (%) (Auto) 0.4, Neutrophils # (Auto) 5.42, Lymphocytes # (Auto) 2.03, Monocytes # (Auto) 0.74, Eosinophils # (Auto) 0.17, Basophils # (Auto) 0.03 10/10/16 16:23 Test 10/10/16 16:23 10/10/16 17:30 White Blood Count 8.44 K/uL (4.8-10.8) Red Blood Count 4.15 M/uL (4.7-6.1) Hemoglobin 12.0 g/dL (14.0-18.0) Hematocrit 38.2 % (42-52) Mean Corpuscular Volume 92.0 fL (80-100) Mean Corpuscular Hemoglobin 28.9 pg (25-34) Mean Corpuscular Hemoglobin Concent 31.4 g/dl (32-36) Platelet Count 226 K/uL (130-400) Mean Platelet Volume 9.4 fL (7.4-10.4) Neutrophils (%) (Auto) 64.1 % Lymphocytes (%) (Auto) 24.1 % Monocytes (%) (Auto) 8.8 % Eosinophils (%) (Auto) 2.0 % Basophils (%) (Auto) 0.4 % Neutrophils # (Auto) 5.42 K/uL (1.4-6.5) Lymphocytes # (Auto) 2.03 K/uL (1.2-3.4) Monocytes # (Auto) 0.74 K/uL (0.11-0.59) Eosinophils # (Auto) 0.17 K/uL (0-0.5) Basophils # (Auto) 0.03 K/uL (0-0.2) RDW Standard Deviation 45.8 fL (36.4-46.3) RDW Coefficient of Variation 13.6 % (11.5-14.5) Immature Granulocyte % (Auto) 0.6 % Immature Granulocyte # (Auto) 0.05 K/uL (0.00-0.02) Prothrombin Time 11.0 SECONDS (9.0-12.0) Prothromb Time International Ratio 1.0 (0.9-1.1) Anion Gap 7.0 mmol/L (3-11) Est Creatinine Clear Calc Drug Dose 42.4 ml/min Estimated GFR () 45.8 Estimated GFR (Non- 39.5 BUN/Creatinine Ratio 11.6 (10-20) Calcium Level 9.0 mg/dl (8.5-10.1) Total Bilirubin 0.2 mg/dl (0.2-1) Aspartate Amino Transf (AST/SGOT) 13 U/L (15-37) Alanine Aminotransferase (ALT/SGPT) 19 U/L (12-78) Alkaline Phosphatase 77 U/L (45-117) Troponin I < 0.015 ng/ml (0-0.045) Pro-B-Type Natriuretic Peptide 883 pg/ml (0-1800) Total Protein 6.9 gm/dl (6.4-8.2) Albumin 3.2 gm/dl (3.4-5.0) Globulin 3.7 gm/dl (2.5-4.0) Albumin/Globulin Ratio 0.9 (0.9-2) Lactic Acid Level 2.5 mmol/L (0.4-2.0) Laboratory results per my review. Medications Administered Medications (Trade) Dose Ordered Sig/Tonia Route Start Time Stop Time Status Last Admin Dose Admin Sodium Chloride 1,000 ml @ 250 mls/hr Q4H STAT IV 10/10/16 18:09 10/10/16 22:08 DC 10/10/16 18:32 250 MLS/HR Aspirin/Aluminum/ Magnesium/Ca Carb (Ascriptin Tab) 325 mg NOW STAT PO 10/10/16 20:15 10/10/16 20:16 DC 10/10/16 20:15 325 MG ECG Indication: altered mental status Rate (beats per minute): 77 Rhythm: other (paced rhythm) Findings: no acute ischemic change, left axis deviation, other (prolonged QRS and QTC consistent with pacer) ED Course 1652: The patient was evaluated in room C9. A complete history and physical exam was performed. 1808: Ordered Sodium Chloride 1000 ml @ 250 mls/hr IV. 1957: I reevaluated the patient and he is resting comfortably. The states that the patient could not talk, was confused, and disoriented. I discussed all the exam findings with the patient and his and I discussed the treatment plan. states patient has now returned to his normal baseline. They verbalized complete understanding and agreement. The patient will be evaluated for further treatment. 2015: Ordered Aspirin/Aluminum/Magnesium/Ca Carb 325 mg PO. 2017: I discussed the patients case with Gabi Brown. He is going to evaluate the patient for further treatment. Medical Decision Differential diagnoses includes but is not limited to toxic, metabolic, infectious, traumatic, cardiac, neurologic, hematologic, psychiatric and inflammatory etiologies. Medication Reconciliation: I attest that I have personally reviewed the patient' s current medication list. Blood pressure screening: Patient was found to have a slightly elevated blood pressure due to circumstances. I do not believe that the patient requires hypertension monitoring. Patient with story concerning for TIA CVA. Patient with dysarthria and confusion noted by , per EMS patient's condition improved prior to arrival, and on my bedside exam patient only with mild memory impairment no dysarthria and no other focal neuro deficit. Patient with risk factors for CVA/TIA. No evidence of acute infectious etiology, doubt cardiac etiology. Head CT here negative. Patient with no recurrence of any symptoms while here. Patient unable to provide urine specimen and did not want catheterization given that he has previously had catheterization as well as cystoscopy for bladder and prostate evaluation. Vital signs otherwise stable. Patient with mild renal insufficiency noted to be at baseline and consistent with prior levels. Mild lactic acidosis more likely consistent with dehydration, doubt bacteremia/ sepsis. No other recent trauma or illness and no new medication changes per . Patient did for continued evaluation and monitoring. Patient and agreeable with plan. Patient had last been seen well at 9 AM when he lay down to sleep by his . Patient not a TPA candidate based on unknown onset of symptoms and last known well, resolution of symptoms with INH stroke score less than 4 on presentation here as well. Consults Time Called: 2014 Consulting Physician: Gabi Brown Returned Call: 2016 I discussed the patients case with Gabi Brown. He is going to evaluate the patient for further treatment. Impression Primary Impression: Altered mental status Additional Impression: TIA (transient ischemic attack) Scribe Attestation The scribe's documentation has been prepared under my direction and personally reviewed by me in its entirety. I confirm that the note above accurately reflects all work, treatment, procedures, and medical decision making performed by me. Departure Information Dispostion Being Evaluated By Hospitalist Portia Barrett M.D. (PCP) Problem Qualifiers Primary Impression: Altered mental status Altered mental status type: transient alteration of awareness Qualified Codes : R40.4 - Transient alteration of awareness Additional Impression: TIA (transient ischemic attack) Transient cerebral ischemia type: unspecified Qualified Codes: G45.9 - Transient cerebral ischemic attack, unspecified
[2016-10-10 17:23] LABS: BASO % 0.4 %; BASO ABS # 0.03 K/uL (0-0.2); COMPLETE YES; HEMATOCRIT 38.2 % (42-52); IG% 0.6 %; LYMPH % 24.1 %; LYMPH ABS # 2.03 K/uL (1.2-3.4); MEAN CORPUSCULAR HEMOGLOBIN 28.9 pg (25-34); MEAN CORPUSCULAR HGB CONC 31.4 g/dl (32-36); MEAN PLATELET VOLUME 9.4 fL (7.4-10.4); MONO % 8.8 %; NEUT % 64.1 %; PLATELET COUNT 226 K/uL (130-400); RED BLOOD COUNT 4.15 M/uL (4.7-6.1); WHITE BLOOD COUNT 8.44 K/uL (4.8-10.8)
[2016-10-10 17:35] LABS: ALT/SGPT 19 U/L (12-78); BLOOD UREA NITROGEN 19 mg/dl (7-18); BUN/CREATININE RATIO 11.6 (10-20); CARBON DIOXIDE 28 mmol/L (21-32); CHLORIDE 106 mmol/L (98-107); GLUCOSE 127 mg/dl (70-99); SODIUM 141 mmol/L (136-145)
[2016-10-10 17:40] LABS: ALB/GLOB RATIO 0.9 (0.9-2); ALKALINE PHOSPHATASE 77 U/L (45-117); AST/SGOT 13 U/L (15-37)
--- NOTE | 2016-10-10 18:01 | DIAGNOSTIC IMAGING REPORT ---
HEAD CT NONCONTRAST CT DOSE: 823.94 mGycm HISTORY: Change in mental status. TECHNIQUE: Multiaxial CT images of the head were performed without the use of intravenous contrast. Automated exposure control was utilized for this study. Comparison: Head CT 04/11/2016. Findings: The paranasal sinuses and mastoid air cells are clear. The calvarium and skull base are intact. The ventricles and sulci are within normal limits. There is no mass, hematoma, midline shift, or acute infarct. Impression: No acute intracranial abnormality. Electronically signed by: Dennis Taveras M.D. 10/10/2016 5:59 PM Dictated Date/Time: 10/10/2016 5:57 PM
[2016-10-10] MEDS ORDERED: SODIUM CHLORIDE 0.9% 1000ML 1,000 ML IV STA (18:09)
--- NOTE | 2016-10-10 19:19 | DIAGNOSTIC IMAGING REPORT ---
CHEST 2 VIEWS ROUTINE HISTORY: Short of breath. Cough. COMPARISON: Chest 04/11/2016. FINDINGS: Left-sided pacemaker. The heart remains top normal in size. No pneumothorax. Small bilateral pleural effusions persist. Bibasilar linear densities have slightly improved. This favors resolving atelectasis. There is a 2 cm nodular density within the right midlung zone. IMPRESSION: 1. No change in the small bilateral pleural effusions. 2. Slight improvement in the bibasilar densities suggesting resolving atelectasis. 3. There is a a 2.0 cm nodular density within the right midlung zone. Follow-up nonemergent dedicated chest CT is recommended to exclude a pulmonary neoplasm. Electronically signed by: Dennis Taveras M.D. 10/10/2016 7:18 PM Dictated Date/Time: 10/10/2016 7:14 PM
[2016-10-10] MEDS ORDERED: PANT40TA PO (19:38)
[2016-10-10] MEDS ORDERED: DICL1GEL34 TOP (19:38)
[2016-10-10] MEDS ORDERED: GABA-112 PO (19:38)
[2016-10-10] MEDS ORDERED: IPRASOL4 INH (19:38)
[2016-10-10] MEDS ORDERED: HYDR-5688 PO (19:38)
[2016-10-10] MEDS ORDERED: FEXO1TAB46 PO (19:38)
[2016-10-10] MEDS ORDERED: LORA-741 PO (19:38)
[2016-10-10] MEDS ORDERED: ZLF/100 PO (19:38)
[2016-10-10] MEDS ORDERED: METO-217 PO (19:38)
[2016-10-10] MEDS ORDERED: ASPI-461 PO (19:38)
[2016-10-10] MEDS ORDERED: SENN1TAB86 PO (19:41)
[2016-10-10] MEDS ORDERED: NZRCR TOP (19:41)
[2016-10-10] MEDS ORDERED: NZRSHM TOP (19:41)
[2016-10-10] MEDS ORDERED: ASPIRIN/ALUM/MAGNES/CAL CARB 325 MG TAB PO STA (20:15)
[2016-10-10] MEDS ORDERED: ONDANSETRON INJ 2 MG/ML 2 ML VIAL IV PRN (21:30)
[2016-10-10] MEDS ORDERED: PHARMACIST DISCHARGE MED REC CONSULT PRN ×2 (21:30)
[2016-10-10] MEDS ORDERED: ACETAMINOPHEN 325 MG TAB PO PRN (21:30)
[2016-10-10] MEDS ORDERED: GLIP2.5T11 PO (21:35)
[2016-10-10] MEDS ORDERED: SENNTAB PO (21:35)
[2016-10-10] MEDS ORDERED: MIRA1TAB3 PO (21:35)
[2016-10-10] MEDS ORDERED: DOCUSATE SODIUM/SENNA 50/8.6MG TAB PO ONE (21:45)
[2016-10-10] MEDS ORDERED: KETOCONAZOLE TOP SCH (21:45)
[2016-10-10] MEDS ORDERED: SERTRALINE HCL 50 MG TAB PO ONE (21:45)
[2016-10-10] MEDS ORDERED: LEVALBUTEROL 1.25MG/3ML NEB INH PRN (21:45)
[2016-10-10] MEDS ORDERED: MIRABEGRON ER 25 MG TAB PO ONE (21:45)
[2016-10-10] MEDS ORDERED: TAMSULOSIN HCL 0.4 MG CAP PO ONE (21:45)
[2016-10-10] MEDS ORDERED: GLUCOSE 40% GEL 15 GM TUBE PO PRN (21:45)
[2016-10-10] MEDS ORDERED: IPRATROPIUM BROMIDE NEB SOLN 0.02% 2.5 ML VIAL INH PRN (21:45)
[2016-10-10] MEDS ORDERED: GLUCOSE 10 TABS/TUBE PO PRN (21:45)
[2016-10-10] MEDS ORDERED: FLUTICASONE PROPIONATE NA SPR 16 GM BTL NAE PRN (21:45)
[2016-10-10] MEDS ORDERED: GLUCAGON FOR INJ 1 MG VIAL SQ PRN (21:45)
[2016-10-10] MEDS ORDERED: FEXOFENADINE HCL 180 MG TAB PO PRN (21:45)
[2016-10-10] MEDS ORDERED: GABAPENTIN 100 MG CAP PO ONE (21:45)
[2016-10-10] MEDS ORDERED: SIMVASTATIN 20 MG TAB PO ONE (21:45)
[2016-10-10] MEDS ORDERED: DEXTROSE 50% 50 ML SYR IV PRN (21:45)
[2016-10-11] VITALS (7 sets, daily range): BP systolic 123–170; BP diastolic 62–85; PULSE 68–83; TEMP 36.5–37; O2SAT 92–98; Ht 177.8 cm; Wt 95.3 kg
--- NOTE | 2016-10-11 00:22 | History and Physical ---
History & Physical Date & Time of Service: Oct 10, 2016 at 21:51 Chief Complaint: Altered Mental Status Primary Care Physician: Portia Candelaria M.D. 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 Patient's states patient did not sleep well overnight, then this morning he was complaining of frontal headache, stating that he felt his head would "blow up." Per his , patient has similar headaches every day. His mental status was at baseline when he went to sleep around noon. Pt's states he awoke at 3pm with confusion. At that time patient did not seem to understand her , his speech was muffled and slurred, and he appeared agitated. The episode lasted approximately 1 hour. 911 was called and when EMS arrived patient was starting to answer questions appropriately. Per his , patient is back to baseline. Patient does not recall the episode. Denies vision change, facial droop, focal weakness or numbness. Patient reports chronic dysuria. Pt underwent cystoscopy with [facility] urologist Dr. Green on 09/27/16 showing very small bladder capacity and ureteral orifices were difficult to visualize. Malignancy could not be ruled out. Cystoscopy in OR was discussed but patient/ decided to await cytology to decide on whether to proceed. Cytology was benign. Patient was started on Myrbetriq. Last week patient had gross hematuria with passage of 3 clots. No longer having hematuria but does report foul odor to the urine. UA on showed small blood, 100 protein, large leukocyte esterase. Urine culture 10/05 was negative. Patient has history of recurrent UTI however his states today's episode was different from prior confusion related to UTI. Denies fever , chills, URI symptoms, cough, worsening SOB from baseline, chest pain, abdominal pain, N/V/D, edema. Pt's state he had an episode of AF once several years go which required cardioversion. 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 Pt's also reports ? history of TIA years ago. No other new medications aside from Myrbetriq added 09/27/16. Past Medical/Surgical History Medical Problems: (1) Basal cell carcinoma Status: Chronic (2) BPH (benign prostatic hyperplasia) Status: Chronic (3) CAD (coronary artery disease) Permanent Comment: s/p mid LAD and left circumflex stents in 2007 Status: Chronic (4) Carotid artery plaque Permanent Comment: carotid doppler 02/2016 showed < 50% stenosis bilaterally Status: Chronic (5) Chronic systolic (congestive) heart failure Permanent Comment: echo 08/2014 - EF 40-45%, grade I diastolic dysfunction; echo 02/2016- examination quality was limited. grossly normal LV function (EF 50 -54%). Moderate concentric LVH. RV not well visualized. Left and right atrium not well visualized. No significant valvular disease was present. Status: Chronic (6) COPD, severe Status: Chronic (7) Depression Status: Chronic (8) Diabetes mellitus Permanent Comment: type 2 Status: Chronic (9) Dyslipidemia Status: Chronic (10) Esophageal stricture Permanent Comment: s/p dilation Status: Chronic (11) GERD (gastroesophageal reflux disease) Status: Chronic (12) High degree atrioventricular block Permanent Comment: s/p pacemaker with upgrade to biventricular device in 2014 Status: Resolved (13) Ischemic cardiomyopathy Status: Chronic (14) DENISHA (obstructive sleep apnea) Status: Chronic (15) Renal artery stenosis Status: Chronic (16) Renal calculi Status: Chronic Surgical Problems: (1) H/O hand surgery Status: Resolved (2) S/P cataract surgery Status: Resolved (3) S/P cholecystectomy Status: Resolved (4) S/P coronary artery stent placement Status: Chronic (5) S/P sinus surgery Status: Resolved (6) Status post total knee replacement, right Status: Resolved Family History Cardiac disorder FATHER BROTHER SISTER Diabetes mellitus BROTHER SISTER Hypertension FATHER SISTER Social History Smoking Status: Former Smoker (2.5 ppd x 30 years) Smokeless Tobacco Use: prior snuff user. now uses tobacco-free "mint snuff" Marital Status: Housing status: lives with family Occupational Status: retired Immunizations History of Influenza Vaccine: Yes Influenza Vaccine Date: Feb 09, 2015 History of Tetanus Vaccine?: Yes Tetanus Immunization Date: Jan 30, 2008 History of Pneumococcal: Yes Pneumococcal Date: Sep 16, 2014 Multi-Drug Resistant Organisms History of MDRO: No Allergies Coded Allergies: Penicillins (Verified Allergy, Mild, RASH, 07/03/16) Clindamycin (Verified Allergy, Unknown, UNKNOWN, 07/03/16) Morphine (Verified Adverse Reaction, Intermediate, mental status change, ) Oxycodone (Verified Adverse Reaction, Mild, CONFUSION, 07/03/16) Home Medications Scheduled Aspirin (Aspirin), 81 MG PO DAILY Cholecalciferol (Vitamin D3), 2,000 UNITS PO DAILY Cyanocobalamin (Vitamin B-12), 1,000 MCG PO DAILY Diclofenac Sodium (Topical) (Diclofenac Sodium), 2 GM TOP BID Finasteride (Finasteride), 5 MG PO DAILY Gabapentin (Neurontin), 100 MG PO HS Glipizide (Glipizide Er), 1 TAB PO DAILY Home O2 Therapy (Oxygen), 3 LITERS NA UD Isosorbide Mononitrate (Isosorbide Mononitrate ER), 30 MG PO QAM Ketoconazole (Ketoconazole), 1 APPLN TOP DAILY Ketoconazole (Ketoconazole), 1 APPLN TOP UD Metformin Hcl (Glucophage), 1,000 MG PO BIDM Metoprolol Succinate (Toprol Xl), 50 MG PO DAILY Mirabegron (Myrbetriq Er), 50 MG PO QPM Pantoprazole (Protonix), 40 MG PO DAILY Pentosan Polysulfate Sodium (Elmiron), 100 MG PO BID [place] ([place]ren[place]) (Saw [place]), 1,000 MG PO BID Sennosides-Docusate Sodium (Qc Stool Softener Plus [place]), 2 TABS PO HS Sertraline HCl (Sertraline HCl), 50 MG PO HS Simvastatin (Simvastatin), 20 MG PO HS Tamsulosin HCl (Tamsulosin HCl), 0.4 MG PO HS Scheduled PRN Fexofenadine Hcl (Randa), 180 MG PO DAILY PRN for ALLERGIES Fluticasone Propionate (Nasal) (Flonase Allergy Relief), 2 SPRAYS [place]ITTON DAILY PRN for Allergy Symptoms Ipratropium [place] (Atrovent 0.02% Soln), 2.5 ML NEB QID PRN for Shortness of Breath Levalbuterol (Levalbuterol HCl), 1 VIAL INH 2-3XDAILY PRN for Shortness of Breath Review of Systems Ten systems reviewed and negative except as noted in HPI. Physical Exam Vital Signs Date Time Temp Pulse Resp B/P (MAP) Pulse Ox O2 Delivery O2 Flow Rate FiO2 10/10/16 20:01 81 20 140/70 98 Room Air 10/10/16 19:31 121/98 10/10/16 19:30 82 18 10/10/16 19:01 139/70 10/10/16 19:00 79 10/10/16 18:26 78 20 114/66 94 Room Air 10/10/16 16:56 99 10/10/16 16:54 97 Nasal Cannula 3.0 10/10/16 16:54 36.8 95 16 131/60 97 Nasal Cannula 3.0 General Appearance: WD/WN, + pertinent finding (alert, irritable 81 year old male, no distress, at bedside is cooperative) Head: normocephalic, atraumatic Eyes: normal inspection, PERRL, EOMI, sclerae normal ENT: hearing grossly normal, pharynx normal Neck: supple, trachea midline, + pertinent finding (possible left carotid bruit ) Respiratory/Chest: lungs clear, normal breath sounds, no respiratory distress, no accessory muscle use Cardiovascular: regular rate, rhythm, no murmur Abdomen/GI: normal bowel sounds, non tender, soft Back: no CVA tenderness Extremities/Musculoskelatal: no calf tenderness, no pedal edema Neurologic/Psych: networking specialist II-XII nml as tested, no motor/sensory deficits, alert, normal mood/affect, oriented x 3, + pertinent finding (no pronator drift) Skin: normal color, warm/dry Diagnostics Laboratory Results Results Past 24 Hours Test 10/10/16 16:23 10/10/16 17:12 10/10/16 17:30 Range/Units White Blood Count 8.44 4.8-10.8 K/uL Red Blood Count 4.15 4.7-6.1 M/uL Hemoglobin 12.0 14.0-18.0 g/dL Hematocrit 38.2 42-52 % Mean Corpuscular Volume 92.0 80-100 fL Mean Corpuscular Hemoglobin 28.9 25-34 pg Mean Corpuscular Hemoglobin Concent 31.4 32-36 g/dl Platelet Count 226 130-400 K/uL Mean Platelet Volume 9.4 7.4-10.4 fL Neutrophils (%) (Auto) 64.1 % Lymphocytes (%) (Auto) 24.1 % Monocytes (%) (Auto) 8.8 % Eosinophils (%) (Auto) 2.0 % Basophils (%) (Auto) 0.4 % Neutrophils # (Auto) 5.42 1.4-6.5 K/uL Lymphocytes # (Auto) 2.03 1.2-3.4 K/uL Monocytes # (Auto) 0.74 0.11-0.59 K/uL Eosinophils # (Auto) 0.17 0-0.5 K/uL Basophils # (Auto) 0.03 0-0.2 K/uL RDW Standard Deviation 45.8 36.4-46.3 fL RDW Coefficient of Variation 13.6 11.5-14.5 % Immature Granulocyte % (Auto) 0.6 % Immature Granulocyte # (Auto) 0.05 0.00-0.02 K/uL Prothrombin Time 11.0 9.0-12.0 SECONDS Prothromb Time International Ratio 1.0 0.9-1.1 Sodium Level 141 136-145 mmol/L Potassium Level 4.0 3.5-5.1 mmol/L Chloride Level 106 98-107 mmol/L Carbon Dioxide Level 28 21-32 mmol/L Anion Gap 7.0 3-11 mmol/L Blood Urea Nitrogen 19 7-18 mg/dl Creatinine 1.60 0.60-1.40 mg/dl Est Creatinine Clear Calc Drug Dose 42.4 ml/min Estimated GFR () 45.8 Estimated GFR (Non- 39.5 BUN/Creatinine Ratio 11.6 10-20 Random Glucose 127 70-99 mg/dl Calcium Level 9.0 8.5-10.1 mg/dl Total Bilirubin 0.2 0.2-1 mg/dl Aspartate Amino Transf (AST/SGOT) 13 15-37 U/L Alanine Aminotransferase (ALT/SGPT) 19 12-78 U/L Alkaline Phosphatase 77 45-117 U/L Troponin I < 0.015 0-0.045 ng/ml Pro-B-Type Natriuretic Peptide 883 0-1800 pg/ml Total Protein 6.9 6.4-8.2 gm/dl Albumin 3.2 3.4-5.0 gm/dl Globulin 3.7 2.5-4.0 gm/dl Albumin/Globulin Ratio 0.9 0.9-2 Lactic Acid Level 2.5 0.4-2.0 mmol/L Diagnostic Radiology HEAD CT NONCONTRAST CT DOSE: 823.94 mGycm HISTORY: Change in mental status. TECHNIQUE: Multiaxial CT images of the head were performed without the use of intravenous contrast. Automated exposure control was utilized for this study. Comparison: Head CT 04/11/2016. Findings: The paranasal sinuses and mastoid air cells are clear. The calvarium and skull base are intact. The ventricles and sulci are within normal limits. There is no mass, hematoma, midline shift, or acute infarct. Impression: No acute intracranial abnormality. CHEST 2 VIEWS ROUTINE HISTORY: Short of breath. Cough. COMPARISON: Chest 04/11/2016. FINDINGS: Left-sided pacemaker. The heart remains top normal in size. No pneumothorax. Small bilateral pleural effusions persist. Bibasilar linear densities have slightly improved. This favors resolving atelectasis. There is a 2 cm nodular density within the right midlung zone. IMPRESSION: 1. No change in the small bilateral pleural effusions. 2. Slight improvement in the bibasilar densities suggesting resolving atelectasis. 3. There is a a 2.0 cm nodular density within the right midlung zone. Follow-up nonemergent dedicated chest CT is recommended to exclude a pulmonary neoplasm. EKG ventricular paced rhythm, 77 bpm Impression Assessment and Plan ALTERED MENTAL STATUS/ DYSARTHRIA- Resolved Possible TIA; rule out CVA- risk factors include hypertension, dyslipidemia, DM , ? remote hx TIA per CT head- no acute findings Unable to do MRI due to pacemaker Check repeat CT head in am, carotid doppler, echo with bubble study, monitor for arrhythmia on telemetry, interrogate pacemaker Continue aspirin and statin; will not add second antiplatelet at this time due to recent hematuria Check fasting lipid panel and A1c Neuro checks Consult neurology PT, OT, speech evaluations Hx of recurrent UTI with metabolic encephalopathy, known renal calculi on prior imaging 03/2016 and 06/2016 R/o UTI- UA is pending ELEVATED LACTIC ACID No sign of sepsis Rule out UTI Recheck lactic acid in am ABNORMAL CXR CXR shows 2.0 cm nodular density within the right midlung zone Follow-up nonemergent dedicated chest CT is recommended to exclude a pulmonary neoplasm URINARY SYMPTOMS Has chronic dysuria, incontinence, overactive bladder, BPH [place] [facility] [place] 09/27/16 showed very small bladder capacity and ureteral orifices were difficult to visualize. Malignancy could not be ruled out. Cystoscopy in OR was discussed but patient/ decided to await cytology to decide on whether to proceed. UA on 09/27/16 showed small blood, 100 protein, large leukocyte esterase. Cytology was benign. Had gross hematuria last week-resolved Urine culture 10/05/16 was negative Follow up UA Continue finasteride, Flomax, Elmiron, Myrbetriq CKD STAGE III Creat is 1.6; on higher end of baseline 1.3-1.6 Monitor renal function Avoid nephrotoxins CAD No anginal symptoms Continue aspirin, statin, beta miko, nitrates CHRONIC SYSTOLIC CHF Euvolemic COPD Not in exacerbation Continue chronic O2 3 liters NC HS and PRN exertion PRN nebs DM TYPE 2 Hold metformin and glipizide Novolog sliding scale Check A1c DEPRESSION Continue sertraline VTE PROPHYLAXIS No anticoagulant due to recent hematuria SCD's CODE STATUS Full code per my discussion with the patient. Does not want prolonged life support. DISPOSITION Admit to telemetry Lives with ; delinquency prevention social worker consulted for DC planning Follows with Dr. Candelaria for primary care Patient seen in collaboration with Dr. White. Please see his addendum. Attending Addendum Pt was seen and examined. Agreed with Carol Assessment and Plan. 81 year old male with PMH of chronic systolic CHF, CAD, carotid artery plaque, history of atrial flutter, 2nd degree AV block s/p pacemaker, dyslipidemia, DM type 2, COPD on home oxygen, CKD stage III, BPH, kidney stones, history of migraine to the ED for episode of altered mental status and dysarthria. As per , pt was sleeping around noon seen he does not sleep much at night, around 3pm went to woke him up, he was confused and unable to speak. Speech improved by the time pt arrived to the ER. Per his , patient is back to baseline. Patient does not recall the episode. Denies vision change, facial droop, focal weakness or numbness. General- No acute distress Head- atraumatic Eyes- PERRL, EOMI ENT- oropharynx clear Neck- supple, no JVD Lungs- No wheezing Heart- regular Abdomen- normal bowel sounds Extremities- no calf tenderness Neuro- alert, oriented x 3; PERRL, EOMI; no facial palsy; no dysarthria A/P ALTERED MENTAL STATUS/ DYSARTHRIA CT head- no acute findings Unable to do MRI due to pacemaker Check repeat CT head in am Will get carotid doppler and echo with bubble study monitor for arrhythmia on telemetry, interrogate pacemaker Continue aspirin and statin; will not add second antiplatelet at this time due to recent hematuria Check fasting lipid panel and A1c Neuro checks Consult neurology PT, OT, speech evaluations Lab, EKG, imaging reviewed Please refer to Carol CALI documentation for other problems Jack White MD VTE Prophylaxis VTE Risk Assessment Done? Y/N: Yes Risk Level: Moderate Given or contraindicated: SCD's
[2016-10-11 06:01] LABS: BASO % 0.3 %; BASO ABS # 0.02 K/uL (0-0.2); COMPLETE YES; EOS % 1.9 %; HEMATOCRIT 35.1 % (42-52); IG% 0.3 %; LYMPH % 28.2 %; LYMPH ABS # 1.79 K/uL (1.2-3.4); MEAN CELL VOLUME 90.9 fL (80-100); MEAN CORPUSCULAR HEMOGLOBIN 27.5 pg (25-34); MEAN CORPUSCULAR HGB CONC 30.2 g/dl (32-36); MONO % 9.8 %; NEUT % 59.5 %; PLATELET COUNT 212 K/uL (130-400); RED BLOOD COUNT 3.86 M/uL (4.7-6.1); WHITE BLOOD COUNT 6.34 K/uL (4.8-10.8)
[2016-10-11 06:22] LABS: ESTIMATED AVERAGE GLUCOSE 126 mg/dl; HA1C FLAG Normal (Normal)
[2016-10-11 06:36] LABS: BUN/CREATININE RATIO 13.7 (10-20); CREATININE 1.4 mg/dl (0.60-1.40); POTASSIUM 3.8 mmol/L (3.5-5.1)
[2016-10-11 06:39] LABS: CHOLESTEROL/HDL RATIO 3.1
[2016-10-11] MEDS: FINASTERIDE 5 MG TAB PO SCH (07:26)
[2016-10-11] MEDS: PENTOSAN POLYSULFATE SODIUM 100 MG CAP PO SCH ×2 (07:26→19:57)
[2016-10-11] MEDS: CYANOCOBALAMIN 500 MCG TAB (VIT B-12) PO SCH (07:27)
[2016-10-11] MEDS: ASPIRIN 81 MG ECTAB PO SCH (07:27)
[2016-10-11] MEDS: KETOCONAZOLE 2% CR 15 GM TUBE EXT SCH (07:27)
[2016-10-11] MEDS: CHOLECALCIFEROL 1000 INTER.UNIT TAB PO SCH (07:28)
[2016-10-11] MEDS: PANTOprazole SOD 40 MG TAB PO SCH (07:28)
--- NOTE | 2016-10-11 08:24 | DIAGNOSTIC IMAGING REPORT ---
CT SCAN OF THE BRAIN WITHOUT IV CONTRAST CLINICAL HISTORY: Change in mental status. Stroke like symptoms. COMPARISON STUDY: CT of the brain dated 10/10/2016. TECHNIQUE: Unenhanced axial CT scan of the brain is performed from the vertex to the skull base. The patient was scanned twice due to motion artifact. CT DOSE: 1074.96 mGy.cm FINDINGS: Brain parenchyma: There are age-related involutional changes noting mild subcortical and periventricular microangiopathic change. There is no hemorrhage, mass effect, or evidence of acute territorial ischemia by CT criteria. Tong-white matter is preserved. No extra-axial fluid collection is seen. Ventricles, sulci, cisterns: Prominent secondary to involutional change. Intracranial vasculature: There is atherosclerotic calcification of the cavernous carotid and vertebral arteries. Calvarium: Unremarkable. Sinuses and mastoids: There is evidence of previous paranasal sinus surgery. The visualized paranasal sinuses are clear. There are trace mastoid effusions. Orbits: The bony orbits are grossly intact. There are bilateral ocular lens implants. IMPRESSION: There is no hemorrhage, mass effect, or evidence of acute territorial ischemia by CT criteria. There has been no significant change from yesterday. Electronically signed by: Anand Brown M.D. 10/11/2016 8:23 AM Dictated Date/Time: 10/11/2016 8:20 AM
[2016-10-11] MEDS: METOPROLOL SUCC 50MG EXT REL TAB PO SCH (08:33)
[2016-10-11] MEDS: ISOSORBIDE MONONITRATE 30 MG TABCR PO SCH (08:33)
[2016-10-11] MEDS: DICLOFENAC SOD 1% GEL 100 GM TUBE EXT SCH ×2 (08:33→21:00)
[2016-10-11] MEDS: INSULIN ASPART 100 UNITS/ML 3 ML PEN SC SCH ×4 (08:38→21:00)
--- NOTE | 2016-10-11 08:38 | DIAGNOSTIC IMAGING REPORT ---
CAROTID ARTERY ULTRASOUND CLINICAL HISTORY: Stroke COMPARISON STUDY: Carotid ultrasound February 24, 2015. TECHNIQUE: Real-time, grayscale, and color Doppler sonography of the carotid and vertebral arteries was performed. Images were viewed in the transverse and longitudinal planes. FINDINGS: There is moderate atherosclerotic plaque. Velocity measurements are listed below. COMMON CAROTID PEAK SYSTOLIC VELOCITY (CM/S): RIGHT 77 LEFT 102 ICA PEAK SYSTOLIC VELOCITY (CM/S): RIGHT 125 LEFT 75 The systolic ratios between the internal to common carotid arteries are normal. Antegrade flow is seen in the vertebral arteries. The external carotid arteries are patent. Blood pressures were not obtained in this patient. IMPRESSION: Moderate atherosclerotic plaque the bilateral common carotid and internal carotid arteries. Mildly elevated peak systolic velocity within the proximal right internal carotid artery with normal systolic ratio. This suggests approximate 50% stenosis. Electronically signed by: Krishan Aguila M.D. 10/11/2016 8:37 AM Dictated Date/Time: 10/11/2016 8:34 AM
[2016-10-11 09:11] LABS: URINE APPEARANCE TURBID (CLEAR); URINE BILIRUBIN NEG (NEG); URINE COLOR YELLOW; URINE NITRITE NEG (NEG); URINE PH 5.5 (4.5-7.5); URINE SPECIFIC GRAVITY 1.013 (1.000-1.030); UROBILINOGEN NEG (NEG); ZZUR CULT IF INDIC CLEAN CATCH YES
[2016-10-11 09:13] LABS: MANUAL MICROSCOPIC REQUIRED? NO; REVIEW REQ? NO
[2016-10-11 12:59] LABS: CALCIUM 8.4 mg/dl (8.5-10.1)
[2016-10-11] MEDS ORDERED: PERFLUTREN LIPID MICROSPHERE (DEFINITY) IV ONE (13:21)
--- NOTE | 2016-10-11 14:51 | Neurology Consultation ---
Neurology Consultation Date of Consultation: Oct 11, 2016. Attending Physician: Christo Low M.D. Primary Care Physician: Portia Candelaria M.D. 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 According to hospital records his states he didn't sleep well overnight and then in the am had a frontal headache "like his head would blow up". His MS was at baseline when he laid down around noon. He woke up at 3pm with confusion. His speech was muffled and slurred and it lasted about 1 hour. She called 911 and EMS reported he was answering questions appropriately. There was no facial droop, vision changes, weakness, numbness or tingling. He has chronic dysuria and had a cystoscopy at [facility] [place] on 09/27 showing a very small bladder capacity and ureteral orifices were difficult to visualize. cystology was beign. He was then started on Myetriq . He then had a gross hematuria with a passage of 3 large clots. UA showed no signs of infection. He has a pacemaker and can't have an MRI. He had a remote history of AF which required cardioversion. Currently he is sleeping and is annoyed that he is being awakened from sleep. There appears to be snuff bedside and when asked about it he states they are just leaves. He states he just went through an exam with someone else and really doesn't want to do it again. He denies CP, SOB, abdominal pain, weakness , numbness tingling, one sided: N, V. He states he was having a problem forming his words but doesn't really remember anything until he got to the ED . Past Medical/Surgical History Medical Problems: (1) Altered mental status Status: Acute (2) Altered mental status Status: Acute (3) Change in mental status Status: Acute (4) Confusion Status: Acute (5) Dehydration Status: Acute (6) Failure of outpatient treatment Status: Acute (7) TIA (transient ischemic attack) Status: Acute (8) UTI (urinary tract infection) Status: Acute (9) Weakness Status: Acute (10) Weakness Status: Acute Social History Smoking Status: Former smoker Smokeless Tobacco Use: prior snuff user. now uses tobacco-free "mint snuff" Marital Status: Housing Status: lives with significant other Occupation Status: retired Allergies Coded Allergies: Penicillins (Verified Allergy, Mild, RASH, 07/03/16) Clindamycin (Verified Allergy, Unknown, UNKNOWN, 07/03/16) Morphine (Verified Adverse Reaction, Intermediate, mental status change, ) Oxycodone (Verified Adverse Reaction, Mild, CONFUSION, 07/03/16) Current Inpatient Medications Current Inpatient Medications Medications (Trade) Dose Ordered Sig/Tonia Route Start Time Stop Time Status Last Admin Dose Admin Miscellaneous Information (Pharmacist Discharge Med Rec Consult) 1 ea UD PRN N/A 10/10/16 21:30 11/09/16 21:29 Acetaminophen (Tylenol Tab) 650 mg Q4H PRN PO 10/10/16 21:30 11/09/16 21:29 Ondansetron HCl (Zofran Inj) 4 mg Q6H PRN IV 10/10/16 21:30 11/09/16 21:29 Aspirin (Ecotrin Tab) 81 mg DAILY PO 10/11/16 09:00 11/10/16 08:59 10/11/16 07:27 81 MG Cholecalciferol (Vitamin D Tab) 2,000 inter.unit DAILY PO 10/11/16 09:00 11/10/16 08:59 10/11/16 07:28 2,000 INTER.UNIT Cyanocobalamin (Vitamin B-12 Tab) 1,000 mcg DAILY PO 10/11/16 09:00 11/10/16 08:59 10/11/16 07:27 1,000 MCG Diclofenac Sodium (Voltaren 1% Top Gel) 1 appln BID EXT 10/11/16 09:00 11/10/16 08:59 10/11/16 08:33 1 APPLN Fexofenadine HCl (Randa Tab) 180 mg DAILY PRN PO 10/10/16 21:45 11/09/16 21:44 Finasteride (Proscar Tab) 5 mg DAILY PO 10/11/16 09:00 11/10/16 08:59 10/11/16 07:26 5 MG Fluticasone Propionate (Flonase Nasal Plover) 2 sprays DAILY PRN BRITTON 10/10/16 21:45 11/09/16 21:44 Gabapentin (Neurontin Cap) 100 mg HS PO 10/11/16 21:00 11/10/16 20:59 Ipratropium Bivins (Atrovent 0.02% 0.5MG/2.5ML Neb) 0.5 mg QID PRN INH 10/10/16 21:45 11/09/16 21:44 Isosorbide Mononitrate (Imdur Ext Rel Tab) 30 mg QAM PO 10/11/16 09:00 11/10/16 08:59 10/11/16 08:33 30 MG Ketoconazole (Nizoral 2% Crm) 1 appln DAILY EXT 10/11/16 09:00 10/21/16 08:59 10/11/16 07:27 1 APPLN Levalbuterol (Xopenex 1.25MG/ 3ML Neb) 1.25 mg QID PRN INH 10/10/16 21:45 11/09/16 21:44 Metoprolol Succinate (Toprol Xl Tab) 50 mg DAILY PO 10/11/16 09:00 11/10/16 08:59 10/11/16 08:33 50 MG Pantoprazole Sodium (Protonix Tab) 40 mg DAILY PO 10/11/16 09:00 11/10/16 08:59 10/11/16 07:28 40 MG Senna/Docusate Sodium (Senokot S Tab) 2 tab HS PO 10/11/16 21:00 11/10/16 20:59 Sertraline HCl (Zoloft Tab) 50 mg HS PO 10/11/16 21:00 11/10/16 20:59 Simvastatin (Zocor Tab) 20 mg HS PO 10/11/16 21:00 11/10/16 20:59 Tamsulosin HCl (Flomax Cap) 0.4 mg HS PO 10/11/16 21:00 11/10/16 20:59 Pentosan Polysulfate Sodium (Elmiron) 100 mg BID PO 10/11/16 09:00 11/10/16 08:59 10/11/16 07:26 100 MG Mirabegron (Myrbetriq Er) 50 mg QPM PO 10/11/16 21:00 11/10/16 20:59 Insulin Aspart (novoLOG ASPART) SLIDING SCALE If C... ACHS SC 10/11/16 07:00 11/10/16 06:59 10/11/16 12:25 3 UNITS Glucose (Glucose 40% Gel) 15-30 GRAMS 15 GRAMS... UD PRN PO 10/10/16 21:45 11/09/16 21:44 Glucose (Glucose Chew Tab) 4-8 Tablets 4 Tabl... UD PRN PO 10/10/16 21:45 11/09/16 21:44 Dextrose (Dextrose 50% 50ML Syringe) 25-50ML OF 50% DW IV FOR... UD PRN IV 10/10/16 21:45 11/09/16 21:44 Glucagon (Glucagon Inj) 1 mg UD PRN SQ 10/10/16 21:45 11/09/16 21:44 Miscellaneous Information (Order Awaiting Action) 1 ea QS N/A 10/11/16 08:00 11/10/16 07:59 Physical Exam Vital Signs (Past 24 Hrs): Date Time Temp Pulse Resp B/P (MAP) Pulse Ox O2 Delivery O2 Flow Rate FiO2 10/11/16 12:02 36.7 68 16 123/62 (82) 94 Room Air 10/11/16 12:00 Room Air 10/11/16 09:15 83 94 10/11/16 08:29 37.0 81 18 148/85 (106) 94 Room Air 10/11/16 08:00 Room Air 10/11/16 04:00 Room Air 10/11/16 04:00 36.8 75 19 163/72 (102) 98 Room Air 10/11/16 00:50 36.8 77 17 161/84 95 Room Air 10/11/16 00:00 Room Air 10/10/16 22:42 76 18 131/67 94 10/10/16 20:01 81 20 140/70 98 Room Air 10/10/16 19:31 121/98 10/10/16 19:30 82 18 10/10/16 19:01 139/70 10/10/16 19:00 79 10/10/16 18:26 78 20 114/66 94 Room Air 10/10/16 16:56 99 10/10/16 16:54 97 Nasal Cannula 3.0 10/10/16 16:54 36.8 95 16 131/60 97 Nasal Cannula 3.0 Physical Exam: Constitutional: appearance nourished, healthy and obese Ears, Nose, Mouth and Throat: mucous membranes moist, no injection and skin normal, eyes normal Cardiovascular: normal S-1 and S-2 and regular rate and rhythm Respiratory: course breath sounds Musculoskeletal: no peripheral edema and good distal pulses Skin: no stigmata of neurocutaneous disease noted and normal and intact Eyes: extraocular muscles intact (EOMI) and pupils equal, round and reactive to light (PERRL) NEUROLOGIC EXAMINATION: Mental status: Alert and interactive Oriented to hospital in [place], (I'm not answering these stupid questions ) does say no ifs ands or buts Oriented to person Speech fluent with no evidence of aphasia Cranial Nerves smile eye brow raise symmetric Reflexes: Deep tendon reflexes were symmetrical and graded 2/5. Plantar responses were flexor. Sensory: decreased sensation to vibration, GT proprioception intact Coordination: finger to nose without bi pass, no resting tremor reaching tremor Gait/Stance: Posture lying in bed Motor: states he is not raising his arms Strength: moving all ext spontaneously but would not cooperate with exam Laboratory Results Past 24 Hours: 10/11/16 05:34 Red Blood Count 3.86, Mean Corpuscular Volume 90.9, Mean Corpuscular Hemoglobin 27.5, Mean Corpuscular Hemoglobin Concent 30.2, Mean Platelet Volume 9.0, Neutrophils (%) (Auto) 59.5, Lymphocytes (%) (Auto) 28.2, Monocytes (%) (Auto) 9.8, Eosinophils (%) (Auto) 1.9, Basophils (%) (Auto) 0.3, Neutrophils # (Auto) 3.77, Lymphocytes # (Auto) 1.79, Monocytes # (Auto) 0.62, Eosinophils # (Auto) 0.12, Basophils # (Auto) 0.02 10/11/16 05:34 Test 10/10/16 16:23 10/11/16 05:34 10/11/16 08:57 10/11/16 11:12 Prothrombin Time 11.0 SECONDS (9.0-12.0) Prothromb Time International Ratio 1.0 (0.9-1.1) Estimated Average Glucose 126 mg/dl Hemoglobin A1c 6.0 % (4.5-5.6) Total Bilirubin 0.2 mg/dl (0.2-1) Aspartate Amino Transf (AST/SGOT) 13 U/L (15-37) Alanine Aminotransferase (ALT/SGPT) 19 U/L (12-78) Alkaline Phosphatase 77 U/L (45-117) Troponin I < 0.015 ng/ml (0-0.045) Pro-B-Type Natriuretic Peptide 883 pg/ml (0-1800) Total Protein 6.9 gm/dl (6.4-8.2) Albumin 3.2 gm/dl (3.4-5.0) Globulin 3.7 gm/dl (2.5-4.0) Albumin/Globulin Ratio 0.9 (0.9-2) White Blood Count 6.34 K/uL (4.8-10.8) Red Blood Count 3.86 M/uL (4.7-6.1) Hemoglobin 10.6 g/dL (14.0-18.0) Hematocrit 35.1 % (42-52) Mean Corpuscular Volume 90.9 fL (80-100) Mean Corpuscular Hemoglobin 27.5 pg (25-34) Mean Corpuscular Hemoglobin Concent 30.2 g/dl (32-36) Platelet Count 212 K/uL (130-400) Mean Platelet Volume 9.0 fL (7.4-10.4) Neutrophils (%) (Auto) 59.5 % Lymphocytes (%) (Auto) 28.2 % Monocytes (%) (Auto) 9.8 % Eosinophils (%) (Auto) 1.9 % Basophils (%) (Auto) 0.3 % Neutrophils # (Auto) 3.77 K/uL (1.4-6.5) Lymphocytes # (Auto) 1.79 K/uL (1.2-3.4) Monocytes # (Auto) 0.62 K/uL (0.11-0.59) Eosinophils # (Auto) 0.12 K/uL (0-0.5) Basophils # (Auto) 0.02 K/uL (0-0.2) RDW Standard Deviation 44.8 fL (36.4-46.3) RDW Coefficient of Variation 13.6 % (11.5-14.5) Immature Granulocyte % (Auto) 0.3 % Immature Granulocyte # (Auto) 0.02 K/uL (0.00-0.02) Anion Gap 6.0 mmol/L (3-11) Est Creatinine Clear Calc Drug Dose 72.4 ml/min Estimated GFR () 53.8 Estimated GFR (Non- 46.5 BUN/Creatinine Ratio 13.7 (10-20) Lactic Acid Level 0.7 mmol/L (0.4-2.0) Calcium Level 8.4 mg/dl (8.5-10.1) Triglycerides Level 139 mg/dl (0-150) Cholesterol Level 95 mg/dl (0-200) HDL Cholesterol 31 mg/dl LDL Cholesterol, Calculated 36 mg/dl VLDL Cholesterol, Calculated 28 mg/dl Cholesterol/HDL Ratio 3.1 Urine Color YELLOW Urine Appearance TURBID (CLEAR) Urine pH 5.5 (4.5-7.5) Urine Specific [place] 1.013 (1.000-1.030) Urine Protein 2+ (NEG) Urine Glucose (UA) NEG (NEG) Urine Ketones NEG (NEG) Urine Occult Blood 2+ (NEG) Urine Nitrite NEG (NEG) Urine Bilirubin NEG (NEG) Urine Urobilinogen NEG (NEG) Urine Leukocyte Esterase LARGE (NEG) Urine WBC (Auto) >30 /hpf (0-5) Urine RBC (Auto) 10-30 /hpf (0-4) Urine Hyaline Casts (Auto) 1-5 /lpf (0-5) Urine Epithelial Cells (Auto) 10-20 /lpf (0-5) Urine Bacteria (Auto) NEG (NEG) Bedside Glucose 122 mg/dl (70-99) Imaging carotid doppler- There is moderate atherosclerotic plaque CT head- There is no hemorrhage, mass effect, or evidence of acute territorial ischemia by CT criteria. There has been no significant change from yesterday. CXR- No change in the small bilateral pleural effusions. Slight improvement in the bibasilar densities suggesting resolving atelectasis. There is a a 2.0 cm nodular density within the right midlung zone. Follow-up nonemergent dedicated chest CT is recommended to exclude a pulmonary neoplasm Impression 81 year old male s/p dysarthria and confusion Plan 1. CT head with no hemorrhage- unable to obtain MRI 2. already on aspirin 81 mg- would start Plavix but patient currently has hematuria 3. permissive hypertensive however blood pressure did not appear elevated at admission 4. optimize LDL-currently 36, DM -HgbA1c 6.0, HTN appears controlled 5. EEG pending read 6. interrogation of pacemaker is pending 7. carotid doppler with minimal arthrosclerosis 8. lung lesions will need further work up with follow up CT chest 9. PT/OT/speech-does not appear to have any discharge needs further recommendations to follow I have seen and discussed above patient with Dr Christo Rubin, neurology I have seen this man and attempted to get some history but his story is variable and I suspect his recall for the event is at best fragmentary and his primary concern is the daily headaches whose onset is equally vague exam now is fine and non focal save for a tangential conversational style that does not seem to ba new according to his son who is in the room. differential diagnosis remains tia, seizure ( doubt however bsed on history and normal eeg today ) and the effects of the recently added myrbetriq ( common side effects ae headache and confusion ) agree with recommendations per Zaina Hopkins and would simply observe chloo for similay events in the future and stop the myrbetriq for now We will check back tomorrow Christo Rubin MD
--- NOTE | 2016-10-11 15:16 | ECHOCARDIOGRAM REPORT ---
*NOTICE TO RECEIVING REPUBLICAN AGENCY This information is strictly Confidential and protected under [place] law. [place] law prohibits you from making any further disclosure of this information unless further disclosure is expressly permitted by the written consent of the person to whom it pertains or is authorized by law. A general authorization for the release of medical or other information is not sufficient for this purpose. Hospital accepts no responsibility if the information is made available to any other person, INCLUDING THE PATIENT. Interpretation Summary * Name: RAKESH SAM Study Date: 10/11/2016 01:12 PM BP: 123/62 mmHg * Patient Location: C.2E\S\E205\S\1 HR: 68 * : 1935 (M/d/yyy) Gender: Male Height: 71 in * Age: 81 yrs Ethnicity: [place] Weight: 215 lb * Ordering Physician: Carol Chakraborty * Performed By: Carmina Rodney * * Reason For Study: TIA * BSA: 2.2 m2 * -- Conclusions -- * Technically limited study: * Unable to visualize valvuar structures, no significant stenosis or regurgitation by Doppler. * Normal LV systolic function with abnormal septal walll motion consistent with pacemaker activation, EF 55-60%. Procedure Details * A complete two-dimensional transthoracic echocardiogram was performed (2D, M-mode, Doppler and color flow Doppler). * The study was technically difficult. * There were technical limitations due to patient'sPoor acoustic windows secondary to severe lung disease. * A contrast injection of Definity was performed to improve assessment of LV function. * Contrast was injected into an intravenous site in the left arm. * One vial of Definity ultrasound contrast was diluted in normal saline to a total volume of 10 ml. A total of '3' ml of solution was administered during imaging. * Lot # [id number] of Definity utilized for procedure. * Expiration date 11/01. * The attending nurse who injected the contrast agent was WALKER ALLISON RN. Left Ventricle * The left ventricle is grossly normal size. * There is no thrombus. * There is moderate concentric left ventricular hypertrophy. * Ejection Fraction = 55-60%. * Left ventricular systolic function is normal. * Apical wall motion abnormality may reflect pacemaker activation. Right Ventricle * The right ventricle is not well visualized. Atria * The left atrium is not well visualized. * Right atrium not well visualized. Mitral Valve * The mitral valve is not well visualized. * There is no mitral valve stenosis. * There is no mitral regurgitation noted. Tricuspid Valve * The tricuspid valve is not well visualized. * There is no tricuspid stenosis. * No tricuspid regurgitation. Aortic Valve * The aortic valve is not well visualized. * No hemodynamically significant valvular aortic stenosis. * There is no significant aortic regurgitation. Pulmonic Valve * The pulmonary valve is not well seen, but the Doppler examination is normal without significant regurgitation or stenosis. Great Vessels * The aortic root is not well visualized. MMode 2D Measurements and Calculations IVSd 1.8 cm IVSs 2.5 cm LVIDd 4.6 cm LVIDs 3.3 cm LVPWd 1.3 cm LVPWs 2.0 cm IVS/LVPW 1.4 FS 27.2 % EDV(Teich) 95.0 ml ESV(Teich) 44.6 ml EF(Teich) 53.0 % EDV(cubed) 94.3 ml ESV(cubed) 36.4 ml EF(cubed) 61.4 % % IVS thick 44.6 % % LVPW thick 52.2 % LV mass(C)d 285.8 grams LV mass(C)dI 131.4 grams/m\S\2 LV mass(C)s 366.1 grams LV mass(C)sI 168.3 grams/m\S\2 CO(Teich) 3.7 l/min CI(Teich) 1.7 l/min/m\S\2 SV(Teich) 50.3 ml SI(Teich) 23.2 ml/m\S\2 CO(cubed) 4.3 l/min CI(cubed) 2.0 l/min/m\S\2 SV(cubed) 57.9 ml SI(cubed) 26.6 ml/m\S\2 ACS 1.5 cm asc Aorta Diam 3.1 cm LVOT diam 2.3 cm LVOT area 4.1 cm\S\2 LVAd ap4 39.1 cm\S\2 LVLd ap4 9.6 cm EDV(MOD-sp4) 131.0 ml LVAs ap4 22.7 cm\S\2 LVLs ap4 8.2 cm ESV(MOD-sp4) 56.0 ml EF(MOD-sp4) 57.3 % LVAd ap2 34.7 cm\S\2 LVLd ap2 9.5 cm EDV(MOD-sp2) 107.0 ml LVAs ap2 20.3 cm\S\2 LVLs ap2 8.3 cm ESV(MOD-sp2) 41.0 ml EF(MOD-sp2) 61.7 % CO(MOD-sp4) 5.6 l/min CI(MOD-sp4) 2.6 l/min/m\S\2 SV(MOD-sp4) 75.0 ml SI(MOD-sp4) 34.5 ml/m\S\2 CO(MOD-sp2) 4.9 l/min CI(MOD-sp2) 2.2 l/min/m\S\2 SV(MOD-sp2) 66.0 ml SI(MOD-sp2) 30.3 ml/m\S\2 Doppler Measurements and Calculations MV E max cecille 65.2 cm/sec MV A max cecille 92.8 cm/sec MV E/A 0.70 MV dec time 0.28 sec Ao V2 max 116.1 cm/sec Ao max PG 5.4 mmHg Ao max PG (full) 3.0 mmHg BRITTON(V,A) 2.7 cm\S\2 BRITTON(V,D) 2.7 cm\S\2 LV V1 max PG 2.4 mmHg LV V1 max 77.4 cm/sec PA V2 max 72.6 cm/sec PA max PG 2.1 mmHg
--- NOTE | 2016-10-11 18:16 | Progress Note ---
Medicine Progress Note Date & Time of Visit: Oct 11, 2016 at 18:16 . Subjective Episode of dysarthria and confusion yesterday afternoon. Dysarthria has resolved, but patient still doesn't feel well. No fever. No cough. Dyspnea at baseline. No chest pain. Has been experiencing anorexia and nausea, no emesis. No diarrhea. Chronic urinary symptoms- urinary frequency, intermittent hematuria, dysuria. . Objective Last 8 Hrs Date Time Temp Pulse Resp B/P (MAP) Pulse Ox O2 Delivery O2 Flow Rate FiO2 10/11/16 15:30 Room Air 10/11/16 12:02 36.7 68 16 123/62 (82) 94 Room Air 10/11/16 12:00 Room Air Physical Exam: General- no acute distress Eyes- anicteric Neck- slight JVD Lungs- diffuse mild wheezing Heart- regular Abdomen- normal bowel sounds, soft, nontender Extremities- no pretibial edema or calf tenderness Neuro- alert, oriented, somewhat restless . Laboratory Results: Last 24 Hours Test 10/11/16 05:34 10/11/16 07:05 10/11/16 08:57 10/11/16 11:12 White Blood Count 6.34 K/uL Red Blood Count 3.86 M/uL Hemoglobin 10.6 g/dL Hematocrit 35.1 % Mean Corpuscular Volume 90.9 fL Mean Corpuscular Hemoglobin 27.5 pg Mean Corpuscular Hemoglobin Concent 30.2 g/dl Platelet Count 212 K/uL Mean Platelet Volume 9.0 fL Neutrophils (%) (Auto) 59.5 % Lymphocytes (%) (Auto) 28.2 % Monocytes (%) (Auto) 9.8 % Eosinophils (%) (Auto) 1.9 % Basophils (%) (Auto) 0.3 % Neutrophils # (Auto) 3.77 K/uL Lymphocytes # (Auto) 1.79 K/uL Monocytes # (Auto) 0.62 K/uL Eosinophils # (Auto) 0.12 K/uL Basophils # (Auto) 0.02 K/uL RDW Standard Deviation 44.8 fL RDW Coefficient of Variation 13.6 % Immature Granulocyte % (Auto) 0.3 % Immature Granulocyte # (Auto) 0.02 K/uL Sodium Level 145 mmol/L Potassium Level 3.8 mmol/L Chloride Level 111 mmol/L Carbon Dioxide Level 28 mmol/L Anion Gap 6.0 mmol/L Blood Urea Nitrogen 19 mg/dl Creatinine 1.40 mg/dl Est Creatinine Clear Calc Drug Dose 72.4 ml/min Estimated GFR () 53.8 Estimated GFR (Non- 46.5 BUN/Creatinine Ratio 13.7 Random Glucose 124 mg/dl Lactic Acid Level 0.7 mmol/L Calcium Level 8.4 mg/dl Triglycerides Level 139 mg/dl Cholesterol Level 95 mg/dl HDL Cholesterol 31 mg/dl LDL Cholesterol, Calculated 36 mg/dl VLDL Cholesterol, Calculated 28 mg/dl Cholesterol/HDL Ratio 3.1 Bedside Glucose 108 mg/dl 122 mg/dl Urine Color YELLOW Urine Appearance TURBID Urine pH 5.5 Urine Specific [place] 1.013 Urine Protein 2+ Urine Glucose (UA) NEG Urine Ketones NEG Urine Occult Blood 2+ Urine Nitrite NEG Urine Bilirubin NEG Urine Urobilinogen NEG Urine Leukocyte Esterase LARGE Urine WBC (Auto) >30 /hpf Urine RBC (Auto) 10-30 /hpf Urine Hyaline Casts (Auto) 1-5 /lpf Urine Epithelial Cells (Auto) 10-20 /lpf Urine Bacteria (Auto) NEG Test 10/11/16 16:20 Bedside Glucose 118 mg/dl Date/Time Source Procedure Growth Status 10/11/16 08:57 Urine , Clean Catch Urine Culture Pending Received Assessment & Plan DYSARTHRIA / ALTERED MENTAL STATUS Neurology consulted. Possible TIA. Head CT negative for any apparent acute vascular events. Carotid duplex shows moderate stenosis and bilateral common and internal carotids. No apparent cardiac thrombi on echocardiogram. Normal sinus rhythm on telemetry. Continue aspirin and statin. CONFUSION Appears that patient has had increasing confusion since starting mirabegron for urinary symptoms. Confusion could be secondary to anticholinergic side effects. Discontinue mirabegron. ABNORMAL UA History of recurrent UTIs, underlying nephrolithiasis. Urinalysis shows large amount of leukocyte esterase, grade 30 WBCs, 10-30 RBCs, negative bacteria. Urine culture last week was reportedly negative. Repeat urine culture pending. CORONARY ARTERY DISEASE No anginal symptoms. Continue aspirin, metoprolol, nitrates, statin. CHRONIC SYSTOLIC CHF History of chronic left ventricular systolic heart failure with LVEF of 40-45%. Compensated. Diurese as needed. COPD Continue O2 + PRN bronchodilators. ABNORMAL CHEST X-RAY 2 cm density noted on chest x-ray. Will need CT for further evaluation. CKD III Monitor renal function. DM TYPE 2 Well-controlled at home. Hemoglobin A1c = 6.0. Hold oral agents during hospital stay. Lantus + NovoLog per protocol. Fasting blood sugar this morning = 108. DEPRESSION Patient takes sertraline 50 mg at bedtime. feels that it has not been effective and would like to discontinue. Best to taper rather than stop abruptly. Consider trial mirtazapine given history of depression + anorexia. AMBULATORY DYSFUNCTION PT / OT. VTE PROPHYLAXIS No anticoagulants because of chronic hematuria. SCD's. Ambulate. DISPOSITION To be determined. May benefit from skilled care or inpatient rehabilitation. PT / OT evaluations. Consult Case Management. Internal Medicine follow-up with Dr. Candelaria. . Current Inpatient Medications: Current Inpatient Medications Medications (Trade) Dose Ordered Sig/Tonia Route Start Time Stop Time Status Last Admin Dose Admin Miscellaneous Information (Pharmacist Discharge Med Rec Consult) 1 ea UD PRN N/A 10/10/16 21:30 11/09/16 21:29 Acetaminophen (Tylenol Tab) 650 mg Q4H PRN PO 10/10/16 21:30 11/09/16 21:29 Ondansetron HCl (Zofran Inj) 4 mg Q6H PRN IV 10/10/16 21:30 11/09/16 21:29 Aspirin (Ecotrin Tab) 81 mg DAILY PO 10/11/16 09:00 11/10/16 08:59 10/11/16 07:27 81 MG Cholecalciferol (Vitamin D Tab) 2,000 inter.unit DAILY PO 10/11/16 09:00 11/10/16 08:59 10/11/16 07:28 2,000 INTER.UNIT Cyanocobalamin (Vitamin B-12 Tab) 1,000 mcg DAILY PO 10/11/16 09:00 11/10/16 08:59 10/11/16 07:27 1,000 MCG Diclofenac Sodium (Voltaren 1% Top Gel) 1 appln BID EXT 10/11/16 09:00 11/10/16 08:59 10/11/16 08:33 1 APPLN Fexofenadine HCl (Randa Tab) 180 mg DAILY PRN PO 10/10/16 21:45 11/09/16 21:44 Finasteride (Proscar Tab) 5 mg DAILY PO 10/11/16 09:00 11/10/16 08:59 10/11/16 07:26 5 MG Fluticasone Propionate (Flonase Nasal [place]) 2 sprays DAILY PRN [place] 10/10/16 21:45 11/09/16 21:44 Gabapentin (Neurontin Cap) 100 mg HS PO 10/11/16 21:00 11/10/16 20:59 Ipratropium [place] (Atrovent 0.02% 0.5MG/2.5ML Neb) 0.5 mg QID PRN INH 10/10/16 21:45 11/09/16 21:44 Isosorbide Mononitrate (Imdur Ext Rel Tab) 30 mg QAM PO 10/11/16 09:00 11/10/16 08:59 10/11/16 08:33 30 MG Ketoconazole (Nizoral 2% Crm) 1 appln DAILY EXT 10/11/16 09:00 10/21/16 08:59 10/11/16 07:27 1 APPLN Levalbuterol (Xopenex 1.25MG/ 3ML Neb) 1.25 mg QID PRN INH 10/10/16 21:45 11/09/16 21:44 Metoprolol Succinate (Toprol Xl Tab) 50 mg DAILY PO 10/11/16 09:00 11/10/16 08:59 10/11/16 08:33 50 MG Pantoprazole Sodium (Protonix Tab) 40 mg DAILY PO 10/11/16 09:00 11/10/16 08:59 10/11/16 07:28 40 MG Senna/Docusate Sodium (Senokot S Tab) 2 tab HS PO 10/11/16 21:00 11/10/16 20:59 Sertraline HCl (Zoloft Tab) 50 mg HS PO 10/11/16 21:00 11/10/16 20:59 Simvastatin (Zocor Tab) 20 mg HS PO 10/11/16 21:00 11/10/16 20:59 Tamsulosin HCl (Flomax Cap) 0.4 mg HS PO 10/11/16 21:00 11/10/16 20:59 Pentosan Polysulfate Sodium (Elmiron) 100 mg BID PO 10/11/16 09:00 11/10/16 08:59 10/11/16 07:26 100 MG Insulin Aspart (novoLOG ASPART) SLIDING SCALE If C... ACHS SC 10/11/16 07:00 11/10/16 06:59 10/11/16 17:06 1 UNITS Glucose (Glucose 40% Gel) 15-30 GRAMS 15 GRAMS... UD PRN PO 10/10/16 21:45 11/09/16 21:44 Glucose (Glucose Chew Tab) 4-8 Tablets 4 Tabl... UD PRN PO 10/10/16 21:45 11/09/16 21:44 Dextrose (Dextrose 50% 50ML Syringe) 25-50ML OF 50% DW IV FOR... UD PRN IV 10/10/16 21:45 11/09/16 21:44 Glucagon (Glucagon Inj) 1 mg UD PRN SQ 10/10/16 21:45 11/09/16 21:44 Miscellaneous Information (Order Awaiting Action) 1 ea QS N/A 10/11/16 08:00 11/10/16 07:59
[2016-10-11] MEDS: ACETAMINOPHEN 325 MG TAB PO SCH (19:56)
[2016-10-11] MEDS: SERTRALINE HCL 50 MG TAB PO SCH (19:56)
[2016-10-11] MEDS: GABAPENTIN 100 MG CAP PO SCH (19:56)
[2016-10-11] MEDS: DOCUSATE SODIUM/SENNA 50/8.6MG TAB PO SCH (19:56)
[2016-10-11] MEDS: SIMVASTATIN 20 MG TAB PO SCH (19:56)
[2016-10-11] MEDS: TAMSULOSIN HCL 0.4 MG CAP PO SCH (19:57)
[2016-10-11] MEDS ORDERED: MIRABEGRON ER 25 MG TAB PO SCH (21:00)
[2016-10-11] MEDS ORDERED: SERTRALINE HCL 100 MG TAB PO SCH (21:00)
[2016-10-12] VITALS (10 sets, daily range): BP systolic 136–179; BP diastolic 66–89; PULSE 63–83; TEMP 36.5–36.7; O2SAT 92–98
[2016-10-12 07:31] LABS: BASO % 0.4 %; BASO ABS # 0.03 K/uL (0-0.2); COMPLETE YES; EOS % 2.4 %; HEMATOCRIT 36.4 % (42-52); IG% 0.6 %; LYMPH % 28.6 %; LYMPH ABS # 1.94 K/uL (1.2-3.4); MEAN CELL VOLUME 91.7 fL (80-100); MEAN CORPUSCULAR HEMOGLOBIN 28.5 pg (25-34); MEAN PLATELET VOLUME 9.2 fL (7.4-10.4); MONO % 9.6 %; NEUT % 58.4 %; PLATELET COUNT 204 K/uL (130-400); RED BLOOD COUNT 3.97 M/uL (4.7-6.1); WHITE BLOOD COUNT 6.79 K/uL (4.8-10.8)
[2016-10-12] MEDS: ASPIRIN 81 MG ECTAB PO SCH (07:35)
[2016-10-12] MEDS: CYANOCOBALAMIN 500 MCG TAB (VIT B-12) PO SCH (07:35)
[2016-10-12] MEDS: METOPROLOL SUCC 50MG EXT REL TAB PO SCH (07:36)
[2016-10-12] MEDS: ISOSORBIDE MONONITRATE 30 MG TABCR PO SCH (07:36)
[2016-10-12] MEDS: KETOCONAZOLE 2% CR 15 GM TUBE EXT SCH (07:37)
[2016-10-12] MEDS: DICLOFENAC SOD 1% GEL 100 GM TUBE EXT SCH ×2 (07:38→20:43)
[2016-10-12] MEDS: PENTOSAN POLYSULFATE SODIUM 100 MG CAP PO SCH ×2 (07:41→20:45)
[2016-10-12] MEDS: CHOLECALCIFEROL 1000 INTER.UNIT TAB PO SCH (07:41)
[2016-10-12] MEDS: PANTOprazole SOD 40 MG TAB PO SCH (07:42)
[2016-10-12] MEDS: FINASTERIDE 5 MG TAB PO SCH (07:42)
[2016-10-12 08:10] LABS: BUN/CREATININE RATIO 13.4 (10-20); CALCIUM 8.4 mg/dl (8.5-10.1); CREATININE 1.4 mg/dl (0.60-1.40); MAGNESIUM 1.8 mg/dl (1.8-2.4); POTASSIUM 3.8 mmol/L (3.5-5.1)
[2016-10-12] MEDS: INSULIN ASPART 100 UNITS/ML 3 ML PEN SC SCH ×4 (08:12→20:56)
[2016-10-12 08:29] LABS: THYROID STIMULATING HORMONE 1.77 uIu/ml (0.300-4.500)
--- NOTE | 2016-10-12 10:40 | Progress Note ---
Medicine Progress Note Date & Time of Visit: Oct 12, 2016 at ~ 10:00 . Subjective Doing well. No further neurologic symptoms. No fever. No chest pain. Pulmonary status at baseline. No nausea, vomiting, diarrhea. Chronic urinary urgency and intermittent dysuria unchanged. Ambulated in this morning with walker in hallway. . Objective Last 8 Hrs Date Time Temp Pulse Resp B/P (MAP) Pulse Ox O2 Delivery O2 Flow Rate FiO2 10/12/16 09:36 Room Air 2.0 10/12/16 07:52 36.7 70 16 162/66 (98) 96 Nasal Cannula 10/12/16 04:00 Nasal Cannula 2.0 10/12/16 03:49 36.7 79 18 158/89 (112) 95 Nasal Cannula 2.0 Physical Exam: General- no acute distress Lungs- diffuse mild wheezing Heart- regular, no gallop appreciated Abdomen- normal bowel sounds, soft, nontender Extremities- no pretibial edema or calf tenderness Neuro- alert, oriented, no dysarthria, motor strength upper and lower extremities 5/5 . Laboratory Results: Last 24 Hours Test 10/11/16 11:12 10/11/16 16:20 10/11/16 20:26 10/12/16 06:44 Bedside Glucose 122 mg/dl 118 mg/dl 158 mg/dl White Blood Count 6.79 K/uL Red Blood Count 3.97 M/uL Hemoglobin 11.3 g/dL Hematocrit 36.4 % Mean Corpuscular Volume 91.7 fL Mean Corpuscular Hemoglobin 28.5 pg Mean Corpuscular Hemoglobin Concent 31.0 g/dl Platelet Count 204 K/uL Mean Platelet Volume 9.2 fL Neutrophils (%) (Auto) 58.4 % Lymphocytes (%) (Auto) 28.6 % Monocytes (%) (Auto) 9.6 % Eosinophils (%) (Auto) 2.4 % Basophils (%) (Auto) 0.4 % Neutrophils # (Auto) 3.97 K/uL Lymphocytes # (Auto) 1.94 K/uL Monocytes # (Auto) 0.65 K/uL Eosinophils # (Auto) 0.16 K/uL Basophils # (Auto) 0.03 K/uL RDW Standard Deviation 45.8 fL RDW Coefficient of Variation 13.6 % Immature Granulocyte % (Auto) 0.6 % Immature Granulocyte # (Auto) 0.04 K/uL Sodium Level 146 mmol/L Potassium Level 3.8 mmol/L Chloride Level 111 mmol/L Carbon Dioxide Level 30 mmol/L Anion Gap 5.0 mmol/L Blood Urea Nitrogen 19 mg/dl Creatinine 1.40 mg/dl Est Creatinine Clear Calc Drug Dose 47.5 ml/min Estimated GFR () 53.8 Estimated GFR (Non- 46.5 BUN/Creatinine Ratio 13.4 Random Glucose 120 mg/dl Calcium Level 8.4 mg/dl Magnesium Level 1.8 mg/dl Thyroid Stimulating Hormone (TSH) 1.770 uIu/ml Test 10/12/16 06:53 Bedside Glucose 115 mg/dl Assessment & Plan DYSARTHRIA / ALTERED MENTAL STATUS Neurology consulted. Possible TIA. Consider other etiologies such as hypoglycemia or side effects from medications. Head CT negative for any apparent acute vascular events. Carotid duplex shows moderate stenosis and bilateral common and internal carotids. No apparent cardiac thrombi on echocardiogram. Normal sinus rhythm on telemetry. Continue aspirin and statin. CONFUSION Appears that patient has had increasing confusion since starting mirabegron for urinary symptoms. Confusion could be secondary to anticholinergic side effects. Discontinue mirabegron. ABNORMAL UA History of recurrent UTIs, underlying nephrolithiasis. Urinalysis shows large amount of leukocyte esterase, grade 30 WBCs, 10-30 RBCs, negative bacteria. Urine culture last week was reportedly negative. Urine culture grew 3 types of organisms, probable skin ashleigh. CORONARY ARTERY DISEASE No anginal symptoms. Continue aspirin, metoprolol, nitrates, statin. CHRONIC SYSTOLIC CHF History of chronic left ventricular systolic heart failure with LVEF of 40-45%. Compensated. Diurese as needed. COPD Continue O2 + PRN bronchodilators. ABNORMAL CHEST X-RAY 2 cm density noted on chest x-ray. Check CT for further evaluation. CKD III Serum creatinine stable at 1.4. DM TYPE 2 Well-controlled at home. Hemoglobin A1c = 6.0. Hold oral agents during hospital stay. Lantus + NovoLog per protocol. Fasting blood sugar this morning = 115. DEPRESSION Patient takes sertraline 50 mg at bedtime. feels that it has not been effective and would like to discontinue. Best to taper rather than stop abruptly. Consider trial mirtazapine given history of depression + anorexia. AMBULATORY DYSFUNCTION PT / OT. VTE PROPHYLAXIS No anticoagulants because of chronic hematuria. SCD's. Ambulate. DISPOSITION To be determined. May benefit from skilled care or inpatient rehabilitation. PT / OT evaluations. Consult Case Management. Internal Medicine follow-up with Dr. Candelaria. ADDENDUM: given update this evening. . Current Inpatient Medications: Current Inpatient Medications Medications (Trade) Dose Ordered Sig/Tonia Route Start Time Stop Time Status Last Admin Dose Admin Miscellaneous Information (Pharmacist Discharge Med Rec Consult) 1 ea UD PRN N/A 10/10/16 21:30 11/09/16 21:29 Acetaminophen (Tylenol Tab) 650 mg Q4H PRN PO 10/10/16 21:30 11/09/16 21:29 Ondansetron HCl (Zofran Inj) 4 mg Q6H PRN IV 10/10/16 21:30 11/09/16 21:29 Aspirin (Ecotrin Tab) 81 mg DAILY PO 10/11/16 09:00 11/10/16 08:59 10/12/16 07:35 81 MG Cholecalciferol (Vitamin D Tab) 2,000 inter.unit DAILY PO 10/11/16 09:00 11/10/16 08:59 10/12/16 07:41 2,000 INTER.UNIT Cyanocobalamin (Vitamin B-12 Tab) 1,000 mcg DAILY PO 10/11/16 09:00 11/10/16 08:59 10/12/16 07:35 1,000 MCG Diclofenac Sodium (Voltaren 1% Top Gel) 1 appln BID EXT 10/11/16 09:00 11/10/16 08:59 10/11/16 08:33 1 APPLN Fexofenadine HCl (Randa Tab) 180 mg DAILY PRN PO 10/10/16 21:45 11/09/16 21:44 Finasteride (Proscar Tab) 5 mg DAILY PO 10/11/16 09:00 11/10/16 08:59 10/12/16 07:42 5 MG Fluticasone Propionate (Flonase Nasal [place]) 2 sprays DAILY PRN [place] 10/10/16 21:45 11/09/16 21:44 Gabapentin (Neurontin Cap) 100 mg HS PO 10/11/16 21:00 11/10/16 20:59 10/11/16 19:56 100 MG Ipratropium [place] (Atrovent 0.02% 0.5MG/2.5ML Neb) 0.5 mg QID PRN INH 10/10/16 21:45 11/09/16 21:44 Isosorbide Mononitrate (Imdur Ext Rel Tab) 30 mg QAM PO 10/11/16 09:00 11/10/16 08:59 10/12/16 07:36 30 MG Ketoconazole (Nizoral 2% Crm) 1 appln DAILY EXT 10/11/16 09:00 10/21/16 08:59 10/12/16 07:37 1 APPLN Levalbuterol (Xopenex 1.25MG/ 3ML Neb) 1.25 mg QID PRN INH 10/10/16 21:45 11/09/16 21:44 Metoprolol Succinate (Toprol Xl Tab) 50 mg DAILY PO 10/11/16 09:00 11/10/16 08:59 10/12/16 07:36 50 MG Pantoprazole Sodium (Protonix Tab) 40 mg DAILY PO 10/11/16 09:00 11/10/16 08:59 10/12/16 07:42 40 MG Senna/Docusate Sodium (Senokot S Tab) 2 tab HS PO 10/11/16 21:00 11/10/16 20:59 10/11/16 19:56 2 TAB Simvastatin (Zocor Tab) 20 mg HS PO 10/11/16 21:00 11/10/16 20:59 10/11/16 19:56 20 MG Tamsulosin HCl (Flomax Cap) 0.4 mg HS PO 10/11/16 21:00 11/10/16 20:59 10/11/16 19:57 0.4 MG Pentosan Polysulfate Sodium (Elmiron) 100 mg BID PO 10/11/16 09:00 11/10/16 08:59 10/12/16 07:41 100 MG Insulin Aspart (novoLOG ASPART) SLIDING SCALE If C... ACHS SC 10/11/16 07:00 11/10/16 06:59 10/12/16 08:12 3 UNITS Glucose (Glucose 40% Gel) 15-30 GRAMS 15 GRAMS... UD PRN PO 10/10/16 21:45 11/09/16 21:44 Glucose (Glucose Chew Tab) 4-8 Tablets 4 Tabl... UD PRN PO 10/10/16 21:45 11/09/16 21:44 Dextrose (Dextrose 50% 50ML Syringe) 25-50ML OF 50% DW IV FOR... UD PRN IV 10/10/16 21:45 11/09/16 21:44 Glucagon (Glucagon Inj) 1 mg UD PRN SQ 10/10/16 21:45 11/09/16 21:44 Miscellaneous Information (Order Awaiting Action) 1 ea QS N/A 10/11/16 08:00 11/10/16 07:59 Sertraline HCl (Zoloft Tab) 25 mg HS PO 10/11/16 21:00 11/10/16 20:59 10/11/16 19:56 25 MG Acetaminophen (Tylenol Tab) 650 mg HS PO 10/11/16 21:00 11/10/16 20:59 10/11/16 19:56 650 MG
--- NOTE | 2016-10-12 11:59 | DIAGNOSTIC IMAGING REPORT ---
CHEST CT WITHOUT CONTRAST CT DOSE: 420.46 mGy.cm HISTORY: Mass right lung mass TECHNIQUE: Multiaxial CT images of the chest were performed without contrast. COMPARISON: 06/24/2014 FINDINGS: Study is limited due to the absence of intravenous contrast enhancement. Interval development of right and to a lesser extent left effusion. Possible underlying nodular component is present consolidative infiltrative change. Interval increase in size of a spiculated density right upper lobe. This is in contact with the right major fissure line and measures 1.8 cm as compared to the prior study of 1.5 cm. Is slightly progressive pleural thickening medially lateral raising the possibility of chest wall involvement. Slight peribronchial thickening. No significant mediastinal or hilar adenopathy within limitations of overlying scan. IMPRESSION: 1. Mildly progressive nodular density right upper lobe now demonstrating a potential extension to the lateral pleural surface. 2. Interval development of right and to lesser extent left pleural effusions possibly with underlying atelectatic and/or nodular-type changes in both lung bases. 3. A neoplastic process is again the diagnosis of exclusion. Electronically signed by: John López M.D. 10/12/2016 11:58 AM Dictated Date/Time: 10/12/2016 11:39 AM
--- NOTE | 2016-10-12 12:46 | Clinical Documentation Query ---
CLINICAL DOCUMENTATION QUERY Dr. HOWELL, In your clinical opinion is this patient being managed for: ( ) Chronic hypoxic respiratory failure ( x ) Other explanation of clinical findings (Please Explain) Chronic nocturnal hypoxia ( ) Unable to determine (Please Define) ( ) Need to Discuss ( ) Not Agree The medical record reflects the following clinical findings, treatment, and risk factors. Clinical Indicators: 81 yo male presenting with possible TIA. Documentation reflects pt wears chronic home O2 support. Treatment: home management includes chronic O2 support, atrovent nebs prn, levalbuterol nebs prn Risk Factors: COPD, chronic systolic CHF Please clarify and document your clinical opinion in the progress notes and discharge summary. Terms such as "probable", "suspected", "likely", "questionable", "possible", or "still to be ruled out" are acceptable. IF IN AGREEMENT, YOU MUST DOCUMENT ABOVE DIAGNOSTIC STATEMENT IN DAILY PROGRESS NOTES AND DISCHARGE SUMMARY. This document is not part of the patient's record. Thank You, Natalie Pete, BERRY [phone]
--- NOTE | 2016-10-12 16:49 | Neurology Progress Notes ---
Neurology Progress Note Date of Service Oct 12, 2016. 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 According to hospital records his states he didn't sleep well overnight and then in the am had a frontal headache "like his head would blow up". His MS was at baseline when he laid down around noon. He woke up at 3pm with confusion. His speech was muffled and slurred and it lasted about 1 hour. She called 911 and EMS reported he was answering questions appropriately. There was no facial droop, vision changes, weakness, numbness or tingling. He has chronic dysuria and had a cystoscopy at [facility] in [place] on 09/27 showing a very small bladder capacity and ureteral orifices were difficult to visualize. cystology was beign. He was then started on Myetriq . He then had a gross hematuria with a passage of 3 large clots. UA showed no signs of infection. He has a pacemaker and can't have an MRI. He had a remote history of AF which required cardioversion. Currently he is sleeping and is annoyed that he is being awakened from sleep. His was in the room and states she thinks the confusion and headaches have gotting worse since he started the Myetriq. He states he is doing fine and wants to be left alone Objective Date Time Temp Pulse Resp B/P (MAP) Pulse Ox O2 Delivery O2 Flow Rate FiO2 10/12/16 14:54 36.6 70 18 153/67 (95) 93 10/12/16 13:03 36.5 83 18 136/69 (91) 94 Room Air 10/12/16 13:00 94 Room Air 2.0 10/12/16 12:32 36.6 81 16 94 10/12/16 11:54 36.6 81 16 141/72 (95) 94 Room Air 10/12/16 09:36 Room Air 2.0 10/12/16 07:52 36.7 70 16 162/66 (98) 96 Nasal Cannula 10/12/16 04:00 Nasal Cannula 2.0 10/12/16 03:49 36.7 79 18 158/89 (112) 95 Nasal Cannula 2.0 10/11/16 23:59 Nasal Cannula 2.0 10/11/16 23:41 36.9 75 20 162/72 (102) 92 Nasal Cannula 2.0 10/11/16 20:00 Room Air 10/11/16 18:58 36.5 77 19 165/71 (102) 92 Room Air Last 24 Hours Test 10/11/16 20:26 10/12/16 06:44 10/12/16 06:53 10/12/16 11:39 Bedside Glucose 158 mg/dl 115 mg/dl 107 mg/dl White Blood Count 6.79 K/uL Red Blood Count 3.97 M/uL Hemoglobin 11.3 g/dL Hematocrit 36.4 % Mean Corpuscular Volume 91.7 fL Mean Corpuscular Hemoglobin 28.5 pg Mean Corpuscular Hemoglobin Concent 31.0 g/dl Platelet Count 204 K/uL Mean Platelet Volume 9.2 fL Neutrophils (%) (Auto) 58.4 % Lymphocytes (%) (Auto) 28.6 % Monocytes (%) (Auto) 9.6 % Eosinophils (%) (Auto) 2.4 % Basophils (%) (Auto) 0.4 % Neutrophils # (Auto) 3.97 K/uL Lymphocytes # (Auto) 1.94 K/uL Monocytes # (Auto) 0.65 K/uL Eosinophils # (Auto) 0.16 K/uL Basophils # (Auto) 0.03 K/uL RDW Standard Deviation 45.8 fL RDW Coefficient of Variation 13.6 % Immature Granulocyte % (Auto) 0.6 % Immature Granulocyte # (Auto) 0.04 K/uL Sodium Level 146 mmol/L Potassium Level 3.8 mmol/L Chloride Level 111 mmol/L Carbon Dioxide Level 30 mmol/L Anion Gap 5.0 mmol/L Blood Urea Nitrogen 19 mg/dl Creatinine 1.40 mg/dl Est Creatinine Clear Calc Drug Dose 47.5 ml/min Estimated GFR () 53.8 Estimated GFR (Non- 46.5 BUN/Creatinine Ratio 13.4 Random Glucose 120 mg/dl Calcium Level 8.4 mg/dl Magnesium Level 1.8 mg/dl Thyroid Stimulating Hormone (TSH) 1.770 uIu/ml Imaging: CT chest- . Mildly progressive nodular density right upper lobe now demonstrating a potential extension to the lateral pleural surface. Interval development of right and to lesser extent left pleural effusions possibly with underlying atelectatic and/or nodular-type changes in both lung bases. A neoplastic process is again the diagnosis of exclusion. Exam: Constitutional: appearance nourished, healthy and obese Ears, Nose, Mouth and Throat: mucous membranes moist, no injection and skin normal, eyes normal Cardiovascular: normal S-1 and S-2 and regular rate and rhythm Respiratory: course breath sounds Musculoskeletal: no peripheral edema and good distal pulses Skin: no stigmata of neurocutaneous disease noted and normal and intact Eyes: extraocular muscles intact (EOMI) and pupils equal, round and reactive to light (PERRL) NEUROLOGIC EXAMINATION: Mental status: Alert and interactive Oriented to hospital in [place], (I'm not answering these stupid questions ) does say no ifs ands or buts Oriented to person Speech fluent with no evidence of aphasia Cranial Nerves smile eye brow raise symmetric Reflexes: Deep tendon reflexes were symmetrical and graded 2/5. Plantar responses were flexor. Sensory: decreased sensation to vibration, GT proprioception intact Coordination: finger to nose without bi pass, no resting tremor reaching tremor Gait/Stance: Posture lying in bed Motor: states he is not raising his arms Strength: moving all ext spontaneously but would not cooperate with exam Current Inpatient Medications Medications (Trade) Dose Ordered Sig/Tonia Route Start Time Stop Time Status Last Admin Dose Admin Miscellaneous Information (Pharmacist Discharge Med Rec Consult) 1 ea UD PRN N/A 10/10/16 21:30 11/09/16 21:29 Acetaminophen (Tylenol Tab) 650 mg Q4H PRN PO 10/10/16 21:30 11/09/16 21:29 Ondansetron HCl (Zofran Inj) 4 mg Q6H PRN IV 10/10/16 21:30 11/09/16 21:29 Aspirin (Ecotrin Tab) 81 mg DAILY PO 10/11/16 09:00 11/10/16 08:59 10/12/16 07:35 81 MG Cholecalciferol (Vitamin D Tab) 2,000 inter.unit DAILY PO 10/11/16 09:00 11/10/16 08:59 10/12/16 07:41 2,000 INTER.UNIT Cyanocobalamin (Vitamin B-12 Tab) 1,000 mcg DAILY PO 10/11/16 09:00 11/10/16 08:59 10/12/16 07:35 1,000 MCG Diclofenac Sodium (Voltaren 1% Top Gel) 1 appln BID EXT 10/11/16 09:00 11/10/16 08:59 10/11/16 08:33 1 APPLN Fexofenadine HCl (Randa Tab) 180 mg DAILY PRN PO 10/10/16 21:45 11/09/16 21:44 Finasteride (Proscar Tab) 5 mg DAILY PO 10/11/16 09:00 11/10/16 08:59 10/12/16 07:42 5 MG Fluticasone Propionate (Flonase Nasal [place]) 2 sprays DAILY PRN [place]IT[place] 10/10/16 21:45 11/09/16 21:44 Gabapentin (Neurontin Cap) 100 mg HS PO 10/11/16 21:00 11/10/16 20:59 10/11/16 19:56 100 MG Ipratropium [place] (Atrovent 0.02% 0.5MG/2.5ML Neb) 0.5 mg QID PRN INH 10/10/16 21:45 11/09/16 21:44 Isosorbide Mononitrate (Imdur Ext Rel Tab) 30 mg QAM PO 10/11/16 09:00 11/10/16 08:59 10/12/16 07:36 30 MG Ketoconazole (Nizoral 2% Crm) 1 appln DAILY EXT 10/11/16 09:00 10/21/16 08:59 10/12/16 07:37 1 APPLN Levalbuterol (Xopenex 1.25MG/ 3ML Neb) 1.25 mg QID PRN INH 10/10/16 21:45 11/09/16 21:44 Metoprolol Succinate (Toprol Xl Tab) 50 mg DAILY PO 10/11/16 09:00 11/10/16 08:59 10/12/16 07:36 50 MG Pantoprazole Sodium (Protonix Tab) 40 mg DAILY PO 10/11/16 09:00 11/10/16 08:59 10/12/16 07:42 40 MG Senna/Docusate Sodium (Senokot S Tab) 2 tab HS PO 10/11/16 21:00 11/10/16 20:59 10/11/16 19:56 2 TAB Simvastatin (Zocor Tab) 20 mg HS PO 10/11/16 21:00 11/10/16 20:59 10/11/16 19:56 20 MG Tamsulosin HCl (Flomax Cap) 0.4 mg HS PO 10/11/16 21:00 11/10/16 20:59 10/11/16 19:57 0.4 MG Pentosan Polysulfate Sodium (Elmiron) 100 mg BID PO 10/11/16 09:00 11/10/16 08:59 10/12/16 07:41 100 MG Insulin Aspart (novoLOG ASPART) SLIDING SCALE If C... ACHS SC 10/11/16 07:00 11/10/16 06:59 10/12/16 11:41 2 UNITS Glucose (Glucose 40% Gel) 15-30 GRAMS 15 GRAMS... UD PRN PO 10/10/16 21:45 11/09/16 21:44 Glucose (Glucose Chew Tab) 4-8 Tablets 4 Tabl... UD PRN PO 10/10/16 21:45 11/09/16 21:44 Dextrose (Dextrose 50% 50ML Syringe) 25-50ML OF 50% DW IV FOR... UD PRN IV 10/10/16 21:45 11/09/16 21:44 Glucagon (Glucagon Inj) 1 mg UD PRN SQ 10/10/16 21:45 11/09/16 21:44 Miscellaneous Information (Order Awaiting Action) 1 ea QS N/A 10/11/16 08:00 11/10/16 07:59 Sertraline HCl (Zoloft Tab) 25 mg HS PO 10/11/16 21:00 11/10/16 20:59 10/11/16 19:56 25 MG Acetaminophen (Tylenol Tab) 650 mg HS PO 10/11/16 21:00 11/10/16 20:59 10/11/16 19:56 650 MG Impression 81 year old male s/p dysarthria and confusion Plan 1. CT head with no hemorrhage- unable to obtain MRI 2. already on aspirin 81 mg- would start Plavix but patient currently has hematuria 3. permissive hypertensive however blood pressure did not appear elevated at admission 4. optimize LDL-currently 36, DM -HgbA1c 6.0, HTN appears controlled 5. EEG no seizure found 6. interrogation of pacemaker is pending 7. carotid doppler with minimal arthrosclerosis 8. lung lesions will need further work up with follow up CT chest- resulted 9. PT/OT/speech-does not appear to have any discharge needs 10. stop Myetriq to see if patient improves further recommendations to follow I have seen and discussed above patient with Dr Christo Rubin, neurology I have seen this man and had the opportunity to discuss his history with his Event certainly sounds like a tia/rind but we cannot determine this on current imaging and eeg is not more than mildy slow and non focal with no seizure activity He is better today less irritable and less headache I continue to be suspicious about the effects of myrgbetriq and would recomment that it be held with follow up post discharge with pcp and urology Neurology at this point does not have any further suggestion as adding another antiplatet agent her in the face of hematuria would not be appropriate and he does not need an anticonvulsant at this time based on our clinical data to date If an event of unequivocal seizure rito occurs in the future then obviously an anticonvulsant will be needed We will sign off for now please feel free to reconsult if situation changes Christo Rubin MD
[2016-10-12] MEDS: IPRATROPIUM BROMIDE NEB SOLN 0.02% 2.5 ML VIAL INH SCH (19:29)
[2016-10-12] MEDS: LEVALBUTEROL 1.25MG/0.5ML NEB INH SCH (19:29)
[2016-10-12] MEDS: GABAPENTIN 100 MG CAP PO SCH (20:45)
[2016-10-12] MEDS: TAMSULOSIN HCL 0.4 MG CAP PO SCH (20:45)
[2016-10-12] MEDS: SIMVASTATIN 20 MG TAB PO SCH (20:46)
[2016-10-12] MEDS: ACETAMINOPHEN 325 MG TAB PO SCH (20:46)
[2016-10-12] MEDS: DOCUSATE SODIUM/SENNA 50/8.6MG TAB PO SCH (20:46)
[2016-10-12] MEDS: SERTRALINE HCL 50 MG TAB PO SCH (20:46)
[2016-10-13] VITALS (7 sets, daily range): BP systolic 125–147; BP diastolic 62–68; PULSE 68–73; TEMP 36.3–36.4; O2SAT 91–98
[2016-10-13] MEDS: IPRATROPIUM BROMIDE NEB SOLN 0.02% 2.5 ML VIAL INH SCH ×2 (07:14→14:02)
[2016-10-13] MEDS: LEVALBUTEROL 1.25MG/0.5ML NEB INH SCH ×2 (07:14→14:03)
[2016-10-13] MEDS: METOPROLOL SUCC 50MG EXT REL TAB PO SCH (08:20)
[2016-10-13] MEDS: PENTOSAN POLYSULFATE SODIUM 100 MG CAP PO SCH (08:20)
[2016-10-13] MEDS: CYANOCOBALAMIN 500 MCG TAB (VIT B-12) PO SCH (08:20)
[2016-10-13] MEDS: ASPIRIN 81 MG ECTAB PO SCH (08:20)
[2016-10-13] MEDS: DICLOFENAC SOD 1% GEL 100 GM TUBE EXT SCH (08:21)
[2016-10-13] MEDS: PANTOprazole SOD 40 MG TAB PO SCH (08:21)
[2016-10-13] MEDS: ISOSORBIDE MONONITRATE 30 MG TABCR PO SCH (08:21)
[2016-10-13] MEDS: FINASTERIDE 5 MG TAB PO SCH (08:22)
[2016-10-13] MEDS: CHOLECALCIFEROL 1000 INTER.UNIT TAB PO SCH (08:22)
[2016-10-13] MEDS: KETOCONAZOLE 2% CR 15 GM TUBE EXT SCH (08:24)
[2016-10-13] MEDS: INSULIN ASPART 100 UNITS/ML 3 ML PEN SC SCH ×2 (08:26→12:41)
[2016-10-13] MEDS ORDERED: GLIP-197 PO ×2 (15:31→15:33)
[2016-10-13] MEDS ORDERED: SERT-234 PO ×3 (15:36→15:47)
--- NOTE | 2016-10-13 15:46 | Discharge Instructions ---
Discharge Instructions Date of Service Oct 13, 2016. Admission Reason for Admission: confusion, slurred speech . Discharge Discharge Diagnosis / Problem: confusion, slurred speech Discharge Goals Goal(s): Improve function, Improve disease control Activity Recommendations Activity Limitations: resume your previous activity . Instructions / Follow-Up Instructions / Follow-Up Risk Factors for Stroke: You can reduce your chances of stroke by working with your medical provider to adopt a healthy lifestyle. Some specific ways to lower your chance of stroke are: * If you are a smoker, now is the time to stop smoking cigarettes * If you are diabetic, improve the control of your blood sugars * Avoid excessive amounts of alcohol * Control high blood pressure * Lose weight if you are overweight * Be sure to lead an active lifestyle * Eat a healthy diet low in salt, cholesterol and fat You should know about other risk factors for stroke that you are unable to control. These include: * Age 55 years or older * Male gender * Certain racial groups: , or / * Family History of Stroke, Mini stroke or Heart Attack * Sickle Cell Disease Follow Up: It is important for you to keep your follow up appointments with your medical provider. APPOINTMENTS: INTERNAL MEDICINE 10/26/2016 2:00 PM Portia Candelaria MD PULMONARY MEDICINE Kishan Avila PA-C. Office will contact you with appointment. INSTRUCTIONS: You had an episode of slurred speech and confusion. Possible explanations: (1) TIA ("ministroke") (2) medication reaction from mirabegron (Myrbetriq) (3) low blood sugar Suggest that you: (1) continue aspirin to prevent strokes and ministrokes (2) stop mirabegron (Myrbetriq) (3) cut back on you diabetes medications as discussed below Hemoglobin A1C was 6. Blood sugars are running lower than they have to be. You might be having low blood sugar spells. Metformin (Glucophage) can cause nausea and poor appetite. Suggest that you stop metformin (Glucophage). Increase glipizide (Glucotrol) to 5 mg daily. Taper sertraline (Zoloft). You may use the 100 mg pills that you have. Take 1/4 pill (25 mg) every night for 7 days, then every other night for 7 days , then stop. The spot in you right lung has grown a little bit over 2 years. Kishan Avila is aware and will see you for follow-up. Seek medical attention if you have: * temperature above 101 * chest pain or trouble breathing * abdominal pain, nausea, vomiting * severe headache, trouble seeing, trouble speaking, weakness in arms or legs * any unanswered questions or concerns Call 911 if symptoms are severe. Call if you have any questions or problems. My cell # is [phone]. You can also reach a [facility] hospitalist on duty at [facility] 24 hours a day by calling [phone]. Please take good care of yourself. Christo Low . Current Hospital Diet Patient's current hospital diet: Diabetes Type 2 Diet, AHA Diet (Heart Healthy) Discharge Diet Recommended Diet: AHA Diet (Heart Healthy), Diabetes Type 2 Diet Pending Studies Studies pending at discharge: no Laboratory Results Hemoglobin A1c Test 10/10/16 16:23 Range/Units Estimated Average Glucose 126 mg/dl Hemoglobin A1c 6.0 H 4.5-5.6 % Lipid Panel Test 10/11/16 05:34 Range/Units Triglycerides Level 139 0-150 mg/dl Cholesterol Level 95 0-200 mg/dl HDL Cholesterol 31 mg/dl Cholesterol/HDL Ratio 3.1 LDL Cholesterol, Calculated 36 mg/dl Medical Emergencies . Who to Call and When: Medical Emergencies: Call 911 immediately if you experience any of the following warning signs and symptoms of Stroke: * Sudden numbness or weakness of the face, arm or leg, especially on one side of the body * Sudden confusion, trouble speaking or understanding * Sudden trouble seeing in one or both eyes * Sudden trouble walking, dizziness, loss of balance or coordination * Sudden severe headache with no cause Do not delay calling 911 if you experience any warning signs or symptoms of a stroke. Delay in seeking medical attention may affect what treatments can be given to you. . Non-Emergent Contact Non-Emergency issues call your: Primary Care Provider, Hospital Doctor . . "Provider Documentation" section prepared by Christo Low. . Stroke Core Measures Reason no t-PA for Stroke: Treatment not indicated Reason no antithrom by day 2: Treatment provided - N/A Reason no antithrom at D/C: Treatment provided - N/A Reason no statin at D/C: Treatment provided - N/A Reason no anticoag w/a fib: Treatment provided - N/A VTE Core Measure Inpt VTE Proph given/why not?: SCD's
--- NOTE | 2016-10-13 17:53 | EEG Procedure Note ---
EEG Procedure Note Date of Service Oct 11, 2016. Start / End Times Start Time: 9:47 AM End Time: 10:[address] Rubin History This is a 81-year-old male who presents with altered mental status. EEG for further evaluation of possible seizure etiology. Home Medication List Scheduled Aspirin (Aspirin), 81 MG PO DAILY Cholecalciferol (Vitamin D3), 2,000 UNITS PO DAILY Cyanocobalamin (Vitamin B-12), 1,000 MCG PO DAILY Diclofenac Sodium (Topical) (Diclofenac Sodium), 2 GM TOP BID Finasteride (Finasteride), 5 MG PO DAILY Gabapentin (Neurontin), 100 MG PO HS Glipizide (Glipizide Er), 5 MG PO DAILY Home O2 Therapy (Oxygen), 3 LITERS NA UD Isosorbide Mononitrate (Isosorbide Mononitrate ER), 30 MG PO QAM Ketoconazole (Ketoconazole), 1 APPLN TOP DAILY Ketoconazole (Ketoconazole), 1 APPLN TOP UD Metoprolol Succinate (Toprol Xl), 50 MG PO DAILY Pantoprazole (Protonix), 40 MG PO DAILY Pentosan Polysulfate Sodium (Elmiron), 100 MG PO BID [place] ([place]) ([place]), 1,000 MG PO BID Sennosides-Docusate Sodium (Qc Stool Softener Plus [place]), 2 TABS PO HS Sertraline (Zoloft), 25 MG PO UD Simvastatin (Simvastatin), 20 MG PO HS Tamsulosin HCl (Tamsulosin HCl), 0.4 MG PO HS Scheduled PRN Fexofenadine Hcl (Randa), 180 MG PO DAILY PRN for ALLERGIES Fluticasone Propionate (Nasal) (Flonase Allergy Relief), 2 SPRAYS BRITTON DAILY PRN for Allergy Symptoms Ipratropium [place] (Atrovent 0.02% Soln), 2.5 ML NEB QID PRN for Shortness of Breath Levalbuterol (Levalbuterol HCl), 1 VIAL INH 2-3XDAILY PRN for Shortness of Breath Description This is a 21 electrode EEG with a single channel dedicated to limited EKG. The electrodes were placed in accordance with the International 10-20 system. At the start of the recording the patient was in an awake state. Background was well organized and composed of symmetric mixed low amplitude alpha and beta frequencies. There was a symmetric well-formed low-moderate amplitude up to 8- 9Hz posterior dominant rhythm (better appreciated towards the end of the recording) that was reactive to eye opening and closure. Hyperventilation was not done. Intermittent photic stimulation at various frequencies produced no abnormalities. There was no sleep transients. Mild drowsiness may have been indicated by mild slowing of the background rhythm. Interpretation This is a normal awake and drowsy routine EEG. There was no electrographic seizures or epileptiform discharges. Clinical Correlation A normal EEG does not rule out epilepsy if there is a strong clinical suspicion.
--- NOTE | 2016-10-14 22:38 | Progress Note ---
Medicine Progress Note Date & Time of Visit: Oct 13, 2016 at 14:10 . Subjective Doing well. No CP. No unusual dyspnea. No nausea, vomiting, diarrhea. Chronic urinary symptoms unchanged. . Objective Last 8 Hrs Date Time Temp Pulse Resp B/P (MAP) Pulse Ox O2 Delivery O2 Flow Rate FiO2 10/13/16 14:03 68 18 94 Room Air 10/13/16 08:30 98 Room Air 10/13/16 07:41 36.4 71 20 147/68 (94) 98 Room Air 10/13/16 07:14 70 18 97 Room Air Physical Exam: General- no distress Lungs- diffuse mild wheezing Heart- regular, no gallop appreciated Abdomen- + BS, soft, nontender Extremities- no pretibial edema or calf tenderness Neuro- alert, oriented, no dysarthria, motor strength upper and lower extremities 5/5 . Laboratory Results: Last 24 Hours Test 10/12/16 17:06 10/12/16 20:25 10/13/16 07:59 10/13/16 11:35 Bedside Glucose 113 mg/dl 229 mg/dl 206 mg/dl 203 mg/dl Assessment & Plan DYSARTHRIA / ALTERED MENTAL STATUS Neurology consulted. Possible TIA. Consider other etiologies such as hypoglycemia or side effects from medications. Head CT negative for any apparent acute vascular events. Carotid duplex shows moderate stenosis and bilateral common and internal carotids. No apparent cardiac thrombi on echocardiogram. Normal sinus rhythm on telemetry. Consider episode of hypoglycemia. Continue aspirin and statin. CONFUSION Appears that patient has had increasing confusion since starting mirabegron for urinary symptoms. Confusion could be secondary to anticholinergic side effects. Discontinued mirabegron. ABNORMAL UA History of recurrent UTIs, underlying nephrolithiasis. Urinalysis shows large amount of leukocyte esterase, grade 30 WBCs, 10-30 RBCs, negative bacteria. Urine culture last week was reportedly negative. Urine culture grew 3 types of organisms, probable skin ashleigh. CORONARY ARTERY DISEASE No anginal symptoms. Continue aspirin, metoprolol, nitrates, statin. CHRONIC SYSTOLIC CHF History of chronic left ventricular systolic heart failure with LVEF of 40-45%. Compensated. Diurese as needed. COPD Continue O2 + PRN bronchodilators. ABNORMAL CHEST X-RAY 2 cm density noted on chest x-ray. Check CT for further evaluation. CKD III Serum creatinine 10/12 stable at 1.4. DM TYPE 2 Well-controlled at home. Hemoglobin A1c = 6.0. Hold oral agents during hospital stay. Lantus + NovoLog per protocol. Glycemic control may be tighter than necessary. Episode of dysarthria / confusion at home may have been secondary to hypoglycemia. Furthermore, anorexia may be due to metformin. Appetite excellent in hospital with metformin on hold. Increase glipizide to 5 mg daily. DC metformin. DEPRESSION Patient takes sertraline 50 mg at bedtime. feels that it has not been effective and would like to discontinue. Best to taper rather than stop abruptly. Discharge on 25 mg HS x 1 week, 25 mg every other night x 1 week, then DC. AMBULATORY DYSFUNCTION PT / OT consulted. Ambulating independently with walker by discharge. VTE PROPHYLAXIS No anticoagulants because of chronic hematuria. SCD's. Ambulating. DISPOSITION Ambulating independently with walker by discharge. Discharge to home. Internal Medicine follow-up with Dr. Candelaria. . Current Inpatient Medications: Current Inpatient Medications Medications (Trade) Dose Ordered Sig/Tonia Route Start Time Stop Time Status Last Admin Dose Admin Miscellaneous Information (Pharmacist Discharge Med Rec Consult) 1 ea UD PRN N/A 10/10/16 21:30 11/09/16 21:29 Acetaminophen (Tylenol Tab) 650 mg Q4H PRN PO 10/10/16 21:30 11/09/16 21:29 Ondansetron HCl (Zofran Inj) 4 mg Q6H PRN IV 10/10/16 21:30 11/09/16 21:29 Aspirin (Ecotrin Tab) 81 mg DAILY PO 10/11/16 09:00 11/10/16 08:59 10/13/16 08:20 81 MG Cholecalciferol (Vitamin D Tab) 2,000 inter.unit DAILY PO 10/11/16 09:00 11/10/16 08:59 10/13/16 08:22 2,000 INTER.UNIT Cyanocobalamin (Vitamin B-12 Tab) 1,000 mcg DAILY PO 10/11/16 09:00 11/10/16 08:59 10/13/16 08:20 1,000 MCG Diclofenac Sodium (Voltaren 1% Top Gel) 1 appln BID EXT 10/11/16 09:00 11/10/16 08:59 10/13/16 08:21 1 APPLN Fexofenadine HCl (Randa Tab) 180 mg DAILY PRN PO 10/10/16 21:45 11/09/16 21:44 Finasteride (Proscar Tab) 5 mg DAILY PO 10/11/16 09:00 11/10/16 08:59 10/13/16 08:22 5 MG Fluticasone Propionate (Flonase Nasal [place]) 2 sprays DAILY PRN [place] 10/10/16 21:45 11/09/16 21:44 Gabapentin (Neurontin Cap) 100 mg HS PO 10/11/16 21:00 11/10/16 20:59 10/12/16 20:45 100 MG Isosorbide Mononitrate (Imdur Ext Rel Tab) 30 mg QAM PO 10/11/16 09:00 11/10/16 08:59 10/13/16 08:21 30 MG Ketoconazole (Nizoral 2% Crm) 1 appln DAILY EXT 10/11/16 09:00 10/21/16 08:59 10/13/16 08:24 1 APPLN Metoprolol Succinate (Toprol Xl Tab) 50 mg DAILY PO 10/11/16 09:00 11/10/16 08:59 10/13/16 08:20 50 MG Pantoprazole Sodium (Protonix Tab) 40 mg DAILY PO 10/11/16 09:00 11/10/16 08:59 10/13/16 08:21 40 MG Senna/Docusate Sodium (Senokot S Tab) 2 tab HS PO 10/11/16 21:00 11/10/16 20:59 10/12/16 20:46 2 TAB Simvastatin (Zocor Tab) 20 mg HS PO 10/11/16 21:00 11/10/16 20:59 10/12/16 20:46 20 MG Tamsulosin HCl (Flomax Cap) 0.4 mg HS PO 10/11/16 21:00 11/10/16 20:59 10/12/16 20:45 0.4 MG Pentosan Polysulfate Sodium (Elmiron) 100 mg BID PO 10/11/16 09:00 11/10/16 08:59 10/13/16 08:20 100 MG Insulin Aspart (novoLOG ASPART) SLIDING SCALE If C... ACHS SC 10/11/16 07:00 11/10/16 06:59 10/13/16 12:41 6 UNITS Glucose (Glucose 40% Gel) 15-30 GRAMS 15 GRAMS... UD PRN PO 10/10/16 21:45 11/09/16 21:44 Glucose (Glucose Chew Tab) 4-8 Tablets 4 Tabl... UD PRN PO 10/10/16 21:45 11/09/16 21:44 Dextrose (Dextrose 50% 50ML Syringe) 25-50ML OF 50% DW IV FOR... UD PRN IV 10/10/16 21:45 11/09/16 21:44 Glucagon (Glucagon Inj) 1 mg UD PRN SQ 10/10/16 21:45 11/09/16 21:44 Miscellaneous Information (Order Awaiting Action) 1 ea QS N/A 10/11/16 08:00 11/10/16 07:59 Sertraline HCl (Zoloft Tab) 25 mg HS PO 10/11/16 21:00 11/10/16 20:59 10/12/16 20:46 25 MG Acetaminophen (Tylenol Tab) 650 mg HS PO 10/11/16 21:00 11/10/16 20:59 10/12/16 20:46 650 MG Ipratropium [place] (Atrovent 0.02% 0.5MG/2.5ML Neb) 0.5 mg TIDR INH 10/12/16 21:00 11/11/16 20:59 10/13/16 14:02 0.5 MG Levalbuterol (Xopenex 1.25MG/ 0.5ML Neb) 1.25 mg TIDR INH 10/12/16 21:00 11/11/16 20:59 10/13/16 14:03 1.25 MG
--- NOTE | 2016-10-14 22:44 | Discharge Summary ---
Discharge Summary Date of Service Oct 14, 2016. Discharge Summary Admission Date: Oct 10, 2016 at 21:13 Discharge Date: Oct 13, 2016 Discharge Disposition: Home Principal Diagnosis: altered mental status and dysarthria, etiology uncertain . Secondary Diagnoses/Problems: Chronic and Resolved Medical Problems: (1) Basal cell carcinoma Status: Chronic (2) BPH (benign prostatic hyperplasia) Status: Chronic (3) CAD (coronary artery disease) Permanent Comment: s/p mid LAD and left circumflex stents in 2007 Status: Chronic (4) Carotid artery plaque Permanent Comment: carotid doppler 02/2016 showed < 50% stenosis bilaterally Status: Chronic (5) Chronic systolic (congestive) heart failure Permanent Comment: echo 08/2014 - EF 40-45%, grade I diastolic dysfunction; echo 02/2016- examination quality was limited. grossly normal LV function (EF 50 -54%). Moderate concentric LVH. RV not well visualized. Left and right atrium not well visualized. No significant valvular disease was present. Status: Chronic (6) COPD, severe Status: Chronic (7) Depression Status: Chronic (8) Diabetes mellitus Permanent Comment: type 2 Status: Chronic (9) Dyslipidemia Status: Chronic (10) Esophageal stricture Permanent Comment: s/p dilation Status: Chronic (11) GERD (gastroesophageal reflux disease) Status: Chronic (12) High degree atrioventricular block Permanent Comment: s/p pacemaker with upgrade to biventricular device in 2014 Status: Resolved (13) Ischemic cardiomyopathy Status: Chronic (14) DENISHA (obstructive sleep apnea) Status: Chronic (14) Pulmonary nodule (15) Renal artery stenosis Status: Chronic (16) Renal calculi Status: Chronic Surgical Problems: (1) H/O hand surgery Status: Resolved (2) S/P cataract surgery Status: Resolved (3) S/P cholecystectomy Status: Resolved (4) S/P coronary artery stent placement Status: Chronic (5) S/P sinus surgery Status: Resolved (6) Status post total knee replacement, right Status: Resolved . Procedures: CT head carotid duplex EEG cardiac monitoring echo CT chest . Consultations: Neurology . Medication Reconciliation New Medications: Glipizide (Glipizide Er) 5 Mg Tab 5 MG PO DAILY, #30 TAB 5 Refills Sertraline (Zoloft) 100 Mg Tab 25 MG PO UD for 14 Days, TAB Take 1/4 pill (25 mg) at bedtime every day for 7 days, then 1/4 pill (25 mg) every other night for 7 days, then stop. Continued Medications: Aspirin (Aspirin) 81 Mg Tab 81 MG PO DAILY Cholecalciferol (Vitamin D3) 1,000 Unit Tab 2000 UNITS PO DAILY Cyanocobalamin (Vitamin B-12) 1,000 Mcg Tab 1000 MCG PO DAILY Diclofenac Sodium (Topical) (Diclofenac Sodium) 1 % Gel 2 GM TOP BID Fexofenadine Hcl (Randa) 180 Mg Tab 180 MG PO DAILY PRN for ALLERGIES Finasteride (Finasteride) 5 Mg Tab 5 MG PO DAILY Fluticasone Propionate (Nasal) (Flonase Allergy Relief) 50 Mcg/Act Spr 2 SPRAYS BRITTON DAILY PRN for Allergy Symptoms Gabapentin (Neurontin) 100 Mg Cap 100 MG PO HS Home O2 Therapy (Oxygen) Gas 3 LITERS NA UD HS and PRN activity Ipratropium Shirley (Atrovent 0.02% Soln) 2.5 Ml Nebu 2.5 ML NEB QID PRN for Shortness of Breath Isosorbide Mononitrate (Isosorbide Mononitrate ER) 30 Mg Tabcr 30 MG PO QAM Ketoconazole (Ketoconazole) 45 Appln/15 Gm Cr 1 APPLN TOP DAILY Ketoconazole (Ketoconazole) 60 Appln/120 Ml Sham 1 APPLN TOP UD APPLY TOPICALLY TO AFFECTED AREA EVERY 3 DAYS. MASSAGE INTO SCALP AND FACE, RINSE AFTER 5 MINUTES. DO 3 TIMES WEEKLY. Levalbuterol (Levalbuterol HCl) 1.25 Mg/3 Ml Nebu 1 VIAL INH 2-3XDAILY PRN for Shortness of Breath Metoprolol Succinate (Toprol Xl) 50 Mg Tabcr 50 MG PO DAILY Pantoprazole (Protonix) 40 Mg Tab 40 MG PO DAILY Pentosan Polysulfate Sodium (Elmiron) 100 Mg Cap 100 MG PO BID, CAP Saw [place] (Serenoa Repens) (Saw [place]) 500 Mg Cap 1000 MG PO BID Sennosides-Docusate Sodium (Qc Stool Softener Plus La) 1 Tab Tab 2 TABS PO HS Simvastatin (Simvastatin) 20 Mg Tab 20 MG PO HS Tamsulosin HCl (Tamsulosin HCl) 0.4 Mg Cap 0.4 MG PO HS Discontinued Medications: Glipizide (Glipizide Er) 2.5 Mg Tab 1 TAB PO DAILY for 30 Days, #30 TAB 5 Refills Metformin Hcl (Glucophage) 1,000 Mg Tab 1000 MG PO BIDM TAKE THIS MEDICATION WITH BREAKFAST AND EVENING MEAL Mirabegron (Myrbetriq Er) 50 Mg Tab 50 MG PO QPM, TAB Sertraline HCl (Sertraline HCl) 100 Mg Tab 50 MG PO HS Admission Information HPI (per Admitting provider): This is an 81 year old male with PMH of chronic systolic CHF, CAD, carotid artery plaque, history of atrial flutter, 2nd degree AV block s/p pacemaker, dyslipidemia, DM type 2, COPD on home oxygen, CKD stage III, BPH, kidney stones , history of migraine, and other problems listed below who presents to the ED for episode of altered mental status and dysarthria. Patient's states patient did not sleep well overnight, then this morning he was complaining of frontal headache, stating that he felt his head would "blow up." Per his , patient has similar headaches every day. His mental status was at baseline when he went to sleep around noon. Pt's states he awoke at 3pm with confusion. At that time patient did not seem to understand her , his speech was muffled and slurred, and he appeared agitated. The episode lasted approximately 1 hour. 911 was called and when EMS arrived patient was starting to answer questions appropriately. Per his , patient is back to baseline. Patient does not recall the episode. Denies vision change, facial droop, focal weakness or numbness. Patient reports chronic dysuria. Pt underwent cystoscopy with [facility] urologist Dr. Green on 09/27/16 showing very small bladder capacity and ureteral orifices were difficult to visualize. Malignancy could not be ruled out. Cystoscopy in OR was discussed but patient/ decided to await cytology to decide on whether to proceed. Cytology was benign. Patient was started on Myrbetriq. Last week patient had gross hematuria with passage of 3 clots. No longer having hematuria but does report foul odor to the urine. UA on showed small blood, 100 protein, large leukocyte esterase. Urine culture 10/05 was negative. Patient has history of recurrent UTI however his states today's episode was different from prior confusion related to UTI. Denies fever , chills, URI symptoms, cough, worsening SOB from baseline, chest pain, abdominal pain, N/V/D, edema. Pt's state he had an episode of AF once several years go which required cardioversion. 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 Pt's also reports ? history of TIA years ago. No other new medications aside from Myrbetriq added 09/27/16. . Physical Exam (per Admitting): General Appearance: WD/WN, + pertinent finding (alert, irritable 81 year old male, no distress, at bedside is cooperative) Head: normocephalic, atraumatic Eyes: normal inspection, PERRL, EOMI, sclerae normal ENT: hearing grossly normal, pharynx normal Neck: supple, trachea midline, + pertinent finding (possible left carotid bruit) Respiratory/Chest: lungs clear, normal breath sounds, no respiratory distress, no accessory muscle use Cardiovascular: regular rate, rhythm, no murmur Abdomen/GI: normal bowel sounds, non tender, soft Back: no CVA tenderness Extremities/Musculoskelatal: no calf tenderness, no pedal edema Neurologic/Psych: acoustic intelligence specialist II-XII nml as tested, no motor/sensory deficits, alert , normal mood/affect, oriented x 3, + pertinent finding (no pronator drift) Skin: normal color, warm/dry Hospital Course DYSARTHRIA / ALTERED MENTAL STATUS Neurology consulted. Possible TIA. Consider other etiologies such as hypoglycemia or side effects from medications. Head CT negative for any apparent acute vascular events. Carotid duplex shows moderate stenosis and bilateral common and internal carotids. No apparent cardiac thrombi on echocardiogram. Normal sinus rhythm on telemetry. Consider episode of hypoglycemia. Continue aspirin and statin. CONFUSION Appears that patient has had increasing confusion since starting mirabegron for urinary symptoms. Confusion could be secondary to anticholinergic side effects. Discontinued mirabegron. ABNORMAL UA History of recurrent UTIs, underlying nephrolithiasis. Urinalysis shows large amount of leukocyte esterase, grade 30 WBCs, 10-30 RBCs, negative bacteria. Urine culture last week was reportedly negative. Urine culture grew 3 types of organisms, probable skin ashleigh. CORONARY ARTERY DISEASE No anginal symptoms. Continue aspirin, metoprolol, nitrates, statin. CHRONIC SYSTOLIC CHF History of chronic left ventricular systolic heart failure with LVEF of 40-45%. Compensated. Diurese as needed. COPD Continue O2 + PRN bronchodilators. PULMONARY NODULE 2 cm density right mid lung noted on chest x-ray. Has been followed for pulmonary nodule by [facility]. CT demonstrated that mass has grown slightly from 15 mm to 18 mm since June 2014. Outpatient follow-up with Pulmonary Medicine. CKD III Serum creatinine 10/12 stable at 1.4. DM TYPE 2 Well-controlled at home. Hemoglobin A1c = 6.0. Hold oral agents during hospital stay. Lantus + NovoLog per protocol. Glycemic control may be tighter than necessary. Episode of dysarthria / confusion at home may have been secondary to hypoglycemia. Furthermore, anorexia may be due to metformin. Appetite excellent in hospital with metformin on hold. Stopped metformin. Increased glipizide to 5 mg daily. DEPRESSION Patient takes sertraline 50 mg at bedtime. feels that it has not been effective and would like to discontinue. Best to taper rather than stop abruptly. Discharged on 25 mg HS x 1 week, 25 mg every other night x 1 week, then DC. AMBULATORY DYSFUNCTION PT / OT consulted. Ambulating independently with walker by discharge. VTE PROPHYLAXIS No anticoagulants because of chronic hematuria. SCD's. Ambulated. DISPOSITION Ambulating independently with walker by time of discharge. Discharge to home. Internal Medicine follow-up with Dr. Candelaria. . Total time spent on discharge = 40 min. This includes examination of the patient, discharge planning, medication reconciliation, and communication with other providers. . Discharge Instructions Date of Service Oct 13, 2016. Admission Reason for Admission: confusion, slurred speech . Discharge Discharge Diagnosis / Problem: confusion, slurred speech Discharge Goals Goal(s): Improve function, Improve disease control Activity Recommendations Activity Limitations: resume your previous activity . Instructions / Follow-Up Instructions / Follow-Up Risk Factors for Stroke: You can reduce your chances of stroke by working with your medical provider to adopt a healthy lifestyle. Some specific ways to lower your chance of stroke are: * If you are a smoker, now is the time to stop smoking cigarettes * If you are diabetic, improve the control of your blood sugars * Avoid excessive amounts of alcohol * Control high blood pressure * Lose weight if you are overweight * Be sure to lead an active lifestyle * Eat a healthy diet low in salt, cholesterol and fat You should know about other risk factors for stroke that you are unable to control. These include: * Age 55 years or older * Male gender * Certain racial groups: , or / * Family History of Stroke, Mini stroke or Heart Attack * Sickle Cell Disease Follow Up: It is important for you to keep your follow up appointments with your medical provider. APPOINTMENTS: INTERNAL MEDICINE 10/26/2016 2:00 PM Portia Candelaria MD PULMONARY MEDICINE Kishan Avila PA-C. Office will contact you with appointment. INSTRUCTIONS: You had an episode of slurred speech and confusion. Possible explanations: (1) TIA ("ministroke") (2) medication reaction from mirabegron (Myrbetriq) (3) low blood sugar Suggest that you: (1) continue aspirin to prevent strokes and ministrokes (2) stop mirabegron (Myrbetriq) (3) cut back on you diabetes medications as discussed below Hemoglobin A1C was 6. Blood sugars are running lower than they have to be. You might be having low blood sugar spells. Metformin (Glucophage) can cause nausea and poor appetite. Suggest that you stop metformin (Glucophage). Increase glipizide (Glucotrol) to 5 mg daily. Taper sertraline (Zoloft). You may use the 100 mg pills that you have. Take 1/4 pill (25 mg) every night for 7 days, then every other night for 7 days , then stop. The spot in you right lung has grown a little bit over 2 years. Kishan Avila is aware and will see you for follow-up. Seek medical attention if you have: * temperature above 101 * chest pain or trouble breathing * abdominal pain, nausea, vomiting * severe headache, trouble seeing, trouble speaking, weakness in arms or legs * any unanswered questions or concerns Call 911 if symptoms are severe. Call if you have any questions or problems. My cell # is [phone]. You can also reach a [facility] hospitalist on duty at [facility] 24 hours a day by calling [phone]. Please take good care of yourself. Christo Low . Current Hospital Diet Patient's current hospital diet: Diabetes Type 2 Diet, AHA Diet (Heart Healthy) Discharge Diet Recommended Diet: AHA Diet (Heart Healthy), Diabetes Type 2 Diet Pending Studies Studies pending at discharge: no Laboratory Results Hemoglobin A1c Test 10/10/16 16:23 Range/Units Estimated Average Glucose 126 mg/dl Hemoglobin A1c 6.0 H 4.5-5.6 % Lipid Panel Test 10/11/16 05:34 Range/Units Triglycerides Level 139 0-150 mg/dl Cholesterol Level 95 0-200 mg/dl HDL Cholesterol 31 mg/dl Cholesterol/HDL Ratio 3.1 LDL Cholesterol, Calculated 36 mg/dl Medical Emergencies . Who to Call and When: Medical Emergencies: Call 911 immediately if you experience any of the following warning signs and symptoms of Stroke: * Sudden numbness or weakness of the face, arm or leg, especially on one side of the body * Sudden confusion, trouble speaking or understanding * Sudden trouble seeing in one or both eyes * Sudden trouble walking, dizziness, loss of balance or coordination * Sudden severe headache with no cause Do not delay calling 911 if you experience any warning signs or symptoms of a stroke. Delay in seeking medical attention may affect what treatments can be given to you. . Non-Emergent Contact Non-Emergency issues call your: Primary Care Provider, Hospital Doctor . . "Provider Documentation" section prepared by Christo Low. . Stroke Core Measures Reason no t-PA for Stroke: Treatment not indicated Reason no antithrom by day 2: Treatment provided - N/A Reason no antithrom at D/C: Treatment provided - N/A Reason no statin at D/C: Treatment provided - N/A Reason no anticoag w/a fib: Treatment provided - N/A VTE Core Measure Inpt VTE Proph given/why not?: SCD's Additional Copies To Kishan Avila PA-C; Portia Candelaria M.D.
[2016-11-05] MEDS ORDERED: GABA-112 PO (11:40)
[2017-01-09] MEDS ORDERED: GLIP-197 PO (14:48)
[2017-01-09] MEDS ORDERED: GABA-112 PO (14:48)
[2017-01-09] MEDS ORDERED: BOPS PR (14:48)
[2017-01-09] MEDS ORDERED: FURO-85 PO (14:48)
[2017-01-09] MEDS ORDERED: POTA10TA PO (14:48)
[2017-01-09] MEDS ORDERED: ESCI1TAB10 PO (14:48)
[2017-01-19] MEDS ORDERED: PHEN-775 PO (14:00)
[2017-01-19] MEDS ORDERED: CIPR-255 PO (14:00)
[2017-01-19] MEDS ORDERED: HYDR-3714 PO (14:00)
[2017-01-24] MEDS ORDERED: CIPR1TAB11 (05:55)
[2017-01-24] MEDS ORDERED: PHEN-876 PO (05:55)
[2017-01-24] MEDS ORDERED: flagyl (05:55)
[2017-01-24] MEDS ORDERED: HYDR-3714 PO (05:55)
== END 2016-10-13 17:00 | disposition home health service (06) | DRG 69 ==
LOC: EDBD 16:43 → C.EDC 16:46 → C.2E 21:13 → ENRESERV 22:09 → C.4E 10-12 12:56
PROVIDERS: ADMIT Internal Medicine; ATTEND Hospitalist
DX: G45.9 Transient cerebral ischemic attack, unspecified (principal); I13.0 Hypertensive heart and chronic kidney disease with heart failure and stage 1 through stage 4 chronic kidney disease, or unspecified chronic kidney disease; I50.22 Chronic systolic (congestive) heart failure; N02.9 Recurrent and persistent hematuria with unspecified morphologic changes; N18.3 Chronic kidney disease, stage 3 (moderate); E66.9 Obesity, unspecified; Z68.30 Body mass index [BMI] 30.0-30.9, adult; Z79.899 Other long term (current) drug therapy; R26.9 Unspecified abnormalities of gait and mobility; I25.10 Atherosclerotic heart disease of native coronary artery without angina pectoris; G43.909 Migraine, unspecified, not intractable, without status migrainosus; N40.1 Benign prostatic hyperplasia with lower urinary tract symptoms; R30.0 Dysuria; R39.15 Urgency of urination; R32 Unspecified urinary incontinence; N32.81 Overactive bladder; R47.1 Dysarthria and anarthria; I70.1 Atherosclerosis of renal artery; F32.9 Major depressive disorder, single episode, unspecified; K21.9 Gastro-esophageal reflux disease without esophagitis; J44.9 Chronic obstructive pulmonary disease, unspecified; E11.22 Type 2 diabetes mellitus with diabetic chronic kidney disease; E78.5 Hyperlipidemia, unspecified; Z95.0 Presence of cardiac pacemaker; Z99.81 Dependence on supplemental oxygen; G47.33 Obstructive sleep apnea (adult) (pediatric); Z95.5 Presence of coronary angioplasty implant and graft; Z79.82 Long term (current) use of aspirin; Z87.442 Personal history of urinary calculi; Z90.49 Acquired absence of other specified parts of digestive tract; Z85.828 Personal history of other malignant neoplasm of skin; Z82.49 Family history of ischemic heart disease and other diseases of the circulatory system; Z83.3 Family history of diabetes mellitus; Z87.891 Personal history of nicotine dependence; Z88.0 Allergy status to penicillin; Z88.5 Allergy status to narcotic agent; Z88.1 Allergy status to other antibiotic agents; Z96.651 Presence of right artificial knee joint

== ENCOUNTER 2016-11-01 14:33 | Inpatient (IN) | payer OTHER ==
[~2016-11-01] VITALS: Ht 180.3 cm; Wt 95.5 kg
[~2016-11-01 14:33] MED LIST changes: -ASCO-63 PO; +ASPI-461 PO; -CARV6.252 PO; -CIPR-255 PO; +DICL1GEL34 TOP; +FEXO1TAB46 PO; -FURO-85 PO; +GABA-112 PO; -GARL1TAB13 PO; -GLIP-171 PO; +GLIP-197 PO; -METF-384 PO; +METO-217 PO; +NZRCR TOP; +NZRSHM TOP; -OMG3 PO; +PANT40TA PO; -POTA-74 PO; -RANI300T2 PO; +SENNTAB PO; +SERT-234 PO; -SERT50TA PO
--- NOTE | 2016-11-01 15:41 | EMERGENCY ROOM VISIT NOTE ---
History First contact with patient: 14:46 Chief Complaint: PENIS PAIN Stated Complaint: PAIN IN PRIVATE AREA Nursing Triage Summary: Pt presents with who states pt was confused yesterday, had pain in testicles, abdomen, penis, right flank pain. Hx of kidney stones. Dribbling of urine and burning, states she has been giving him AZO. states pt is incontinent of urine normally. History of Present Illness The patient is a 81 year old male w/ hx of recurrent UTI, Kidney Stones, Testicular cyst, DM, HTN, Pacemaker, who presents to the Emergency Room with complaints of penile pain, Rt sided groin pain, and and Rt lower back pain. Pain is episodic started a week ago but rapidly progressed within the last 24 hrs. It is worsened by movement and urination. also report occasional hematuria. He has been taking Azo at home. He denies fever, chills, N/V change in stool. He already follows with Urology at [facility] and has seen multiple urologists both at [facility] and [facility] in the past. He had cystoscopy on 09/27 which according to patient could not be completed properly due to "bladder swelling" according to family. He scheduled again for Urology appt in [facility] on Review of Systems Pt denies headache, change in vision, fevers, chest pain, shortness of breath, nausea, vomiting, diarrhea, and melena. Past Medical/Surgical History Medical Problems: (1) Basal cell carcinoma (2) BPH (benign prostatic hyperplasia) (3) CAD (coronary artery disease) (4) Carotid artery plaque (5) Chronic systolic (congestive) heart failure (6) COPD, severe (7) Depression (8) Diabetes mellitus (9) Dyslipidemia (10) Esophageal stricture (11) GERD (gastroesophageal reflux disease) (12) High degree atrioventricular block (13) Ischemic cardiomyopathy (14) DENISHA (obstructive sleep apnea) (15) Pulmonary nodule (16) Renal artery stenosis (17) Renal calculi (18) UTI (urinary tract infection) Surgical Problems: (1) H/O hand surgery (2) S/P cataract surgery (3) S/P cholecystectomy (4) S/P coronary artery stent placement (5) S/P sinus surgery (6) Status post total knee replacement, right Family History Cardiac disorder FATHER BROTHER SISTER Diabetes mellitus BROTHER SISTER Hypertension FATHER SISTER Social History Smoking Status: Former Smoker Alcohol Use: none Marital Status: Housing Status: lives with significant other Occupation Status: retired Current/Historical Medications Scheduled Aspirin (Aspirin), 81 MG PO DAILY Cholecalciferol (Vitamin D3), 2,000 UNITS PO DAILY Cyanocobalamin (Vitamin B-12), 1,000 MCG PO DAILY Finasteride (Finasteride), 5 MG PO DAILY Furosemide (Lasix), 20 MG PO DAILY Gabapentin (Neurontin), 100 MG PO HS Glipizide (Glipizide Er), 5 MG PO DAILY Home O2 Therapy (Oxygen), 3 LITERS NA UD Isosorbide Mononitrate (Isosorbide Mononitrate ER), 30 MG PO QAM Ketoconazole (Ketoconazole), 1 APPLN TOP UD Metoprolol Succinate (Toprol Xl), 50 MG PO DAILY Pantoprazole (Protonix), 40 MG PO DAILY Pentosan Polysulfate Sodium (Elmiron), 100 MG PO BID Potassium Chloride (Micro-K Ext Rel), 10 MEQ PO DAILY Saw [place] (Serenoa Repens) (Saw [place]), 1,000 MG PO BID Sennosides-Docusate Sodium (Qc Stool Softener Plus La), 2 TABS PO HS Simvastatin (Simvastatin), 20 MG PO HS Tamsulosin HCl (Tamsulosin HCl), 0.4 MG PO HS Scheduled PRN Diclofenac Sodium (Topical) (Diclofenac Sodium), 2 GM TOP BID PRN for Fexofenadine Hcl (Randa), 180 MG PO DAILY PRN for ALLERGIES Fluticasone Propionate (Nasal) (Flonase Allergy Relief), 2 SPRAYS BRITTON DAILY PRN for Allergy Symptoms Ipratropium [place] (Atrovent 0.02% Soln), 2.5 ML NEB QID PRN for Shortness of Breath Ketoconazole (Ketoconazole), 1 APPLN TOP DAILY PRN for Levalbuterol (Levalbuterol HCl), 1 VIAL INH 2-3XDAILY PRN for Shortness of Breath Allergies Coded Allergies: Penicillins (Verified Allergy, Mild, RASH, 11/01/16) Clindamycin (Verified Allergy, Unknown, UNKNOWN, 11/01/16) Mirabegron (Verified Adverse Reaction, Severe, DELIRIUM, 11/01/16) Confusion, slurred speech Morphine (Verified Adverse Reaction, Intermediate, mental status change, ) Oxycodone (Verified Adverse Reaction, Mild, CONFUSION, 11/01/16) Physical Exam Vital Signs Date Time Temp Pulse Resp B/P (MAP) Pulse Ox O2 Delivery O2 Flow Rate FiO2 11/01/16 18:40 89 18 147/62 91 11/01/16 16:30 78 20 128/65 93 11/01/16 14:36 36.4 98 18 111/56 91 Room Air Physical Exam GENERAL: alert, mild distress, non-toxic EYE EXAM: normal conjunctiva, PERRL and EOM's grossly intact OROPHARYNX: no exudate, no erythema, lips, buccal mucosa, and tongue normal and mucous membranes are moist NECK: supple, no nuchal rigidity, no adenopathy, non-tender LUNGS: Clear to auscultation. Normal chest wall mechanics HEART: no murmurs, S1 normal and S2 normal ABDOMEN: abdomen soft, diffuse TTP, no rebounding, guarding, rigidity,, normo- active bowel sounds, no masses BACK: Back is symmetrical on inspection and there is no deformity, no midline tenderness, + Rt sided CVA tenderness. UROGENITAL: Scrotal edema, Tenderness to light palpation , no rashes, no erythema, UPPER EXTREMITIES: upper extremities are grossly normal. LOWER EXTREMITIES: No pitting edema. NEURO EXAM: Normal sensorium, cranial nerves II-XII grossly intact, normal speech Medical Decision & Procedures Laboratory Results Test 11/01/16 15:59 11/01/16 17:50 Bedside Troponin I < 0.030 ng/ml (0-0.045) Urine Color ORANGE Urine Appearance TURBID (CLEAR) Urine pH 6.0 (4.5-7.5) Urine Specific [place] 1.017 (1.000-1.030) Urine Protein 2+ (NEG) Urine Glucose (UA) NEG (NEG) Urine Ketones NEG (NEG) Urine Occult Blood 3+ (NEG) Urine Nitrite POS (NEG) Urine Bilirubin NEG (NEG) Urine Urobilinogen NEG (NEG) Urine Leukocyte Esterase LARGE (NEG) Urine WBC (Auto) >30 /hpf (0-5) Urine RBC (Auto) 5-10 /hpf (0-4) Urine Hyaline Casts (Auto) 1-5 /lpf (0-5) Urine Epithelial Cells (Auto) >30 /lpf (0-5) Urine Bacteria (Auto) 1+ (NEG) Urine Pathogenic Casts /lpf (0) Urine Yeast (Auto) BUDDING (NONE PRSENT) Medications Administered Medications (Trade) Dose Ordered Sig/Tonia Route Start Time Stop Time Status Last Admin Dose Admin Lorazepam (Ativan Inj) 1 mg NOW STAT IV 11/01/16 17:44 11/01/16 17:47 DC 11/01/16 17:44 1 MG Ciprofloxacin/ Dextrose (Cipro / D5W) 400 mg NOW STAT IV 11/01/16 19:21 11/01/16 19:22 DC 11/01/16 19:21 400 MG Sodium Chloride 1,000 ml @ 80 mls/hr [id number] IV 11/01/16 20:00 12/01/16 19:59 11/02/16 08:46 80 MLS/HR Oxycodone/ Acetaminophen (Percocet 5-325mg Tab) 1 tab Q4H PRN PO 11/01/16 20:00 11/02/16 11:41 DC 11/02/16 04:29 1 TAB Medical Decision 81 yo M with hx of kidneys stones, recurrent UTI, DM, HTN, COPD presenting with progressive penile/scrotal pain, hematuria Rt lower back pain x1 wk. taking Azo at home. CBC: H/H :12.1/39.4 , mild anemia, chronic within baseline BMP: Cr 1.9 Baseline, 1.4-1.6, BUN 14 Troponin Neg. UA: UA: 3 + blood, large leuk esterase, >20 wbc;s, 1+ bacteria, budding yeastUrine cx pending Testicular U/S 1. No evidence of intratesticular mass 2. No evidence of testicular torsion 3. Large right-sided hydrocele Renal US 1. Mild right collecting system dilatation. 2. Study compromised by suboptimal penetration. CXR: 1. 2.1 cm right lung nodule which corresponds to the upper lobe nodule shown on prior chest CT. suggestive of bronchogenic carcinoma per radiology 2. Small bilateral pleural effusions with hazy bibasilar opacities which favor atelectasis over consolidation. 3. Trace bilateral pleural effusions On reevaluation on patient, patient appeared increasingly agitated particularly with family members He was given 1 mg IV Ativan. Based on UA consistent with UTI, he was started on CIpro with 400 mg IV administered. Patient likely has element of dementia chronically but there was suspicion for acute delirium based on hallucinations, confusion per Family.n. Regarding penile, testicular pain, and hematuria, Pyelonephritis, Kidney stones, UTI were all considered. Patent was known to urology and specific diagnosis has thus far been elusive. It was determined patient would benefit from admission. Case was discussed with hospitalist team and he was evaluated for admission with likely Urology consultation Impression Primary Impression: UTI (urinary tract infection) Additional Impression: Altered mental status Departure Information Dispostion Home / Self-Care Condition GOOD Prescriptions Potassium Chloride (Micro-K Ext Rel) 10 Meq Capcr 10 MEQ PO DAILY, #30 CAP Prov: Jose Miguel Marcano MD 11/01/16 Furosemide (LASIX) 20 Mg Tab 20 MG PO DAILY, #30 TAB Prov: Jose Miugel Marcano MD 11/01/16 Referrals Portia Candelaria M.D. (PCP) Patient Instructions My [facility] Problem Qualifiers
[2016-11-01 15:50] LABS: BASO % 0.2 %; BASO ABS # 0.02 K/uL (0-0.2); COMPLETE YES; EOS % 1.2 %; HEMATOCRIT 39.4 % (42-52); IG% 0.2 %; LYMPH % 13.2 %; LYMPH ABS # 1.23 K/uL (1.2-3.4); MEAN CELL VOLUME 91.6 fL (80-100); MEAN CORPUSCULAR HEMOGLOBIN 28.1 pg (25-34); MEAN CORPUSCULAR HGB CONC 30.7 g/dl (32-36); MEAN PLATELET VOLUME 8.9 fL (7.4-10.4); MONO % 8.2 %; PLATELET COUNT 224 K/uL (130-400); WHITE BLOOD COUNT 9.32 K/uL (4.8-10.8)
[2016-11-01 16:13] LABS: BUN/CREATININE RATIO 7.3 (10-20); CALCIUM 8.6 mg/dl (8.5-10.1); CREATININE 1.9 mg/dl (0.60-1.40); POTASSIUM 4.4 mmol/L (3.5-5.1)
--- NOTE | 2016-11-01 16:33 | DIAGNOSTIC IMAGING REPORT ---
CHEST ONE VIEW PORTABLE CLINICAL HISTORY: Crackles. COMPARISON STUDY: Chest CT October 12, 2016. FINDINGS: A left subclavian biventricular pacer is in place. Mild cardiomegaly is noted. There is no evidence of pulmonary edema. There are trace bilateral pleural effusions. There are hazy bibasilar opacities. A 2.1 cm right mid lung nodule corresponds to the right upper lobe nodule shown on prior chest CT. IMPRESSION: 1. 2.1 cm right lung nodule which corresponds to the upper lobe nodule shown on prior chest CT. This is highly suggestive of bronchogenic carcinoma. 2. Small bilateral pleural effusions with hazy bibasilar opacities which favor atelectasis over consolidation. 3. Trace bilateral pleural effusions. Electronically signed by: Krishan Aguila M.D. 11/01/2016 4:31 PM Dictated Date/Time: 11/01/2016 4:27 PM
[2016-11-01] MEDS ORDERED: LORAZEPAM 2 MG/ML 1 ML VIAL IV STA (17:44)
--- NOTE | 2016-11-01 17:59 | EMERGENCY ROOM VISIT NOTE ---
History Report prepared by Britt: Prasad Allen Under the Supervision of: Dr. Ariel Faye M.D. First contact with patient: 14:45 Chief Complaint: PENIS PAIN Stated Complaint: PAIN IN PRIVATE AREA Nursing Triage Summary: Pt presents with who states pt was confused yesterday, had pain in testicles, abdomen, penis, right flank pain. Hx of kidney stones. Dribbling of urine and burning, states she has been giving him AZO. states pt is incontinent of urine normally. History of Present Illness The patient is a 81 year old male who presents to the Emergency Room with complaints of intermittent penis pain beginning 1 week ago. He also complains of hematuria, right groin pain, scrotal pain, and low back pain. He states that his pain is triggered with movement and urination. The patient spoke with his urologist today and was referred to the ED. He denies any abnormal SOB, fevers, chills, nausea, or vomiting. He had an attempted cystoscopy last month which could not be completed due to significant bladder swelling. The patient is scheduled to see his urologist next month. He has a history of kidney stones, frequent UTIs, and testicular cysts. He notes that he has a lot of chronic pain , including in his abdomen. The patient states that he has been experiencing swelling in his testicles for a few weeks. He notes that he has been coughing recently. Per , the patient has been having a little increased confusion over the past few months. She states that it appears to have worsened more significantly in the past few weeks. She states that he has been more forgetful , and quick to anger. Source of History: patient, spouse/significant other () Onset: 1 week ago Position: other (penis) Timing: intermittent Associated Symptoms: + cough, + back pain (low), + urinary symptoms ( hematuria), No fevers, No SOB (abnormal), No nausea, No vomiting Note: The patient also complains of right groin pain, and scrotal pain. Review of Systems See HPI for pertinent positives & negatives. A total of 10 systems reviewed and were otherwise negative. Past Medical & Surgical Medical Problems: (1) Basal cell carcinoma (2) BPH (benign prostatic hyperplasia) (3) CAD (coronary artery disease) (4) Carotid artery plaque (5) Chronic systolic (congestive) heart failure (6) COPD, severe (7) Depression (8) Diabetes mellitus (9) Dyslipidemia (10) Esophageal stricture (11) GERD (gastroesophageal reflux disease) (12) High degree atrioventricular block (13) Ischemic cardiomyopathy (14) DENISHA (obstructive sleep apnea) (15) Pulmonary nodule (16) Renal artery stenosis (17) Renal calculi (18) UTI (urinary tract infection) Surgical Problems: (1) H/O hand surgery (2) S/P cataract surgery (3) S/P cholecystectomy (4) S/P coronary artery stent placement (5) S/P sinus surgery (6) Status post total knee replacement, right Old medical records were reviewed. Nurse's notes were reviewed and I agree with. Family History Cardiac disorder FATHER BROTHER SISTER Diabetes mellitus BROTHER SISTER Hypertension FATHER SISTER Social History Smoking Status: Former Smoker Alcohol Use: none Marital Status: Housing Status: lives with significant other Occupation Status: retired Current/Historical Medications Scheduled Aspirin (Aspirin), 81 MG PO DAILY Cholecalciferol (Vitamin D3), 2,000 UNITS PO DAILY Cyanocobalamin (Vitamin B-12), 1,000 MCG PO DAILY Finasteride (Finasteride), 5 MG PO DAILY Furosemide (Lasix), 20 MG PO DAILY Gabapentin (Neurontin), 100 MG PO HS Glipizide (Glipizide Er), 5 MG PO DAILY Home O2 Therapy (Oxygen), 3 LITERS NA UD Isosorbide Mononitrate (Isosorbide Mononitrate ER), 30 MG PO QAM Ketoconazole (Ketoconazole), 1 APPLN TOP UD Metoprolol Succinate (Toprol Xl), 50 MG PO DAILY Pantoprazole (Protonix), 40 MG PO DAILY Pentosan Polysulfate Sodium (Elmiron), 100 MG PO BID Potassium Chloride (Micro-K Ext Rel), 10 MEQ PO DAILY [place] ([place]) (S[place]), 1,000 MG PO BID Sennosides-Docusate Sodium (Qc Stool Softener Plus [place]), 2 TABS PO HS Simvastatin (Simvastatin), 20 MG PO HS Tamsulosin HCl (Tamsulosin HCl), 0.4 MG PO HS Scheduled PRN Diclofenac Sodium (Topical) (Diclofenac Sodium), 2 GM TOP BID PRN for Fexofenadine Hcl (Randa), 180 MG PO DAILY PRN for ALLERGIES Fluticasone Propionate (Nasal) (Flonase Allergy Relief), 2 SPRAYS [place] DAILY PRN for Allergy Symptoms Ipratropium [place] (Atrovent 0.02% Soln), 2.5 ML NEB QID PRN for Shortness of Breath Ketoconazole (Ketoconazole), 1 APPLN TOP DAILY PRN for Levalbuterol (Levalbuterol HCl), 1 VIAL INH 2-3XDAILY PRN for Shortness of Breath Allergies Coded Allergies: Penicillins (Verified Allergy, Mild, RASH, 11/01/16) Clindamycin (Verified Allergy, Unknown, UNKNOWN, 11/01/16) Mirabegron (Verified Adverse Reaction, Severe, DELIRIUM, 11/01/16) Confusion, slurred speech Morphine (Verified Adverse Reaction, Intermediate, mental status change, ) Oxycodone (Verified Adverse Reaction, Mild, CONFUSION, 11/01/16) Physical Exam Vital Signs Date Time Temp Pulse Resp B/P (MAP) Pulse Ox O2 Delivery O2 Flow Rate FiO2 11/01/16 18:40 89 18 147/62 91 11/01/16 16:30 78 20 128/65 93 11/01/16 14:36 36.4 98 18 111/56 91 Room Air Physical Exam General: Non-ill appearing older male in no acute distress. Answers questions appropriately. HEENT: Normal cephalic atraumatic. Pupils are equal round and reactive to light. Extraocular movements are intact. Oropharynx is pink with moist mucous membranes. No swelling of the mouth lips or tongue. Neck: Supple with a midline trachea. No meningeal signs or stiffness, no JVD or bruits. No Stridor. Chest: Faint crackles in the left base. No wheezes or rhonchi. No increased work of breathing. Heart: regular rate and rhythm. Abdomen: Soft nontender, nondistended without rebound guarding or rigidity. : Mild diffuse tenderness of the scrotum which he states is chronic. No masses felt. Extremities: No cyanosis clubbing or edema. No calf tenderness or assymetry Spine/Back. Non tender to palpation. No CVA tenderness Skin: Good turgor without rashes. Neurologic exam: Cranial nerves two through 12 are intact. Motor and sensation are intact and symmetrical throughout. Medical Decision & Procedures ER Provider Diagnostic Interpretation: X-ray results as stated below per interpretation by me and the radiologist: CHEST ONE VIEW PORTABLE FINDINGS: A left subclavian biventricular pacer is in place. Mild cardiomegaly is noted. There is no evidence of pulmonary edema. There are trace bilateral pleural effusions. There are hazy bibasilar opacities. A 2.1 cm right mid lung nodule corresponds to the right upper lobe nodule shown on prior chest CT. IMPRESSION: 1. 2.1 cm right lung nodule which corresponds to the upper lobe nodule shown on prior chest CT. This is highly suggestive of bronchogenic carcinoma. 2. Small bilateral pleural effusions with hazy bibasilar opacities which favor atelectasis over consolidation. 3. Trace bilateral pleural effusions. Electronically signed by: Krishan Aguila M.D. Laboratory Results Test 11/01/16 15:59 11/01/16 17:50 Bedside Troponin I < 0.030 ng/ml (0-0.045) Urine Color ORANGE Urine Appearance TURBID (CLEAR) Urine pH 6.0 (4.5-7.5) Urine Specific [place] 1.017 (1.000-1.030) Urine Protein 2+ (NEG) Urine Glucose (UA) NEG (NEG) Urine Ketones NEG (NEG) Urine Occult Blood 3+ (NEG) Urine Nitrite POS (NEG) Urine Bilirubin NEG (NEG) Urine Urobilinogen NEG (NEG) Urine Leukocyte Esterase LARGE (NEG) Urine WBC (Auto) >30 /hpf (0-5) Urine RBC (Auto) 5-10 /hpf (0-4) Urine Hyaline Casts (Auto) 1-5 /lpf (0-5) Urine Epithelial Cells (Auto) >30 /lpf (0-5) Urine Bacteria (Auto) 1+ (NEG) Urine Pathogenic Casts /lpf (0) Urine Yeast (Auto) BUDDING (NONE PRSENT) Laboratory studies as stated above per my review. Medications Administered Medications (Trade) Dose Ordered Sig/Tonia Route Start Time Stop Time Status Last Admin Dose Admin Lorazepam (Ativan Inj) 1 mg NOW STAT IV 11/01/16 17:44 11/01/16 17:47 DC 11/01/16 17:44 1 MG Ciprofloxacin/ Dextrose (Cipro / D5W) 400 mg NOW STAT IV 11/01/16 19:21 11/01/16 19:22 DC 11/01/16 19:21 400 MG Sodium Chloride 1,000 ml @ 80 mls/hr [id number] IV 11/01/16 20:00 12/01/16 19:59 11/02/16 08:46 80 MLS/HR Oxycodone/ Acetaminophen (Percocet 5-325mg Tab) 1 tab Q4H PRN PO 11/01/16 20:00 11/15/16 19:59 11/02/16 04:29 1 TAB ED Course 1455: Past medical records reviewed. The patient was evaluated in room B6, and a complete history and physical examination were performed. 174: Ordered Ativan Inj 1 mg IV. 1800: The patient was signed out to Dr. Isabel at the change of shift pending ultrasound and CT results. Medical Decision Differentials include, but are not limited to; UTI, cellulitis, kidney stone, cardiac disease, infection, and electrolyte or metabolic abnormality. Med reconciliation: I have personally reviewed the patient's medication lists on the chart Hypertension: The patient's mildly although blood pressure is likely related to agitation and he does have some underlying blood pressure problems as well and should follow-up with his regular doctor: This patient comes in with multiple complaints. He has some pain in his groin and penile area apparently this has been going on chronically. He does tend to get chronic urinary tract infections and has chronic groin pain. He's had no fever. His and sister very concerned that his behavior has changed more subacutely. He was admitted here about 2 weeks ago for possible slow strokelike symptoms and continues to have agitated behavior at home. At times he may also be seeing things at times they say. On exam, he is cooperative but intermittently agitated with the family. He is tender in his groin but there is no redness or cellulitis. IV access established. He adamantly refused any catheterization for urine and we did get a clean catch which suggests a possible UTI. He has no fever white count however. CAT scan of his head was unremarkable. We did ultrasound of his testicles he has a hydrocele but no other abnormalities. His creatinine is mildly bumped at 1.9 compared to his baseline. There is nothing to suggest acute cardiac disease or CHF. He does have a spot on his chest x-ray which is concerning for a possible lesion. Family does not feel that he can go home. He has had some behavioral mental status changes he also seems to have difficulty ambulating. He also has pain issues. We did consult the [facility] hospitalist group to see him in the ER. Impression Primary Impression: Altered mental status Additional Impression: Penile pain Scribe Attestation The scribe's documentation has been prepared under my direction and personally reviewed by me in its entirety. I confirm that the note above accurately reflects all work, treatment, procedures, and medical decision making performed by me. Departure Information Dispostion Still a Patient (Signed out to Dr. Isabel) Prescriptions Potassium Chloride (Micro-K Ext Rel) 10 Meq Capcr 10 MEQ PO DAILY, #30 CAP Prov: Jose Miguel Marcano MD 11/01/16 Furosemide (LASIX) 20 Mg Tab 20 MG PO DAILY, #30 TAB Prov: Jose Miguel Marcano MD 11/01/16 Referrals Portia Candelaria M.D. (PCP) Patient Instructions [facility] Problem Qualifiers
[2016-11-01 18:18] LABS: URINE APPEARANCE TURBID (CLEAR); URINE COLOR ORANGE; URINE EPITHELIAL CELL AUTO >30 /lpf (0-5); URINE NITRITE POS (NEG); URINE SPECIFIC GRAVITY 1.017 (1.000-1.030); UROBILINOGEN NEG (NEG)
[2016-11-01 18:31] LABS: MANUAL MICROSCOPIC REQUIRED? NO; REVIEW REQ? YES; URINE BILIRUBIN NEG (NEG)
--- NOTE | 2016-11-01 18:40 | DIAGNOSTIC IMAGING REPORT ---
CT HEAD WITHOUT CONTRAST (CT) CLINICAL HISTORY: Acute change in mental status. POSSIBLE LUNG CARCINOMA. COMPARISON STUDY: 10/11/2016 TECHNIQUE: Axial CT of the brain is performed from the vertex to the skull base. IV contrast was not administered for this examination. CT DOSE: 2260.50 mGy.cm FINDINGS: No intra or extra-axial mass lesions are visualized. There is no CT evidence of acute cortical infarction. There is no evidence of midline shift. There is no acute hemorrhage. No calvarial fractures are visualized. There are patchy white matter hypodensities likely on a small vessel basis. There is no evidence of pathologic ventricular dilatation. There is no evidence of acute sinusitis IMPRESSION: No acute intracranial findings Electronically signed by: Lazarus Abbott M.D. 11/01/2016 6:39 PM Dictated Date/Time: 11/01/2016 6:35 PM
--- NOTE | 2016-11-01 18:43 | DIAGNOSTIC IMAGING REPORT ---
RENAL ULTRASOUND CLINICAL HISTORY: Right flank pain. Right groin pain. COMPARISON STUDY: CT of the abdomen and pelvis July 03, 2016. TECHNIQUE: Sonography of the kidneys and the urinary bladder was performed. FINDINGS: The right kidney measures 10 x 5.2 x 7.1 cm and the left measures 11.3 x 5.2 x 5.9 cm. This exam is moderately compromised by suboptimal penetration. Mild renal cortical thinning is noted. There is no left hydronephrosis. There is mild right collecting system dilatation. Neither ureteral jet was identified. The bladder was partially obscured. IMPRESSION: 1. Mild right collecting system dilatation. 2. Study compromised by suboptimal penetration. The bilateral renal calculi shown on CT of July 03, 2016 are not visualized on this exam, likely due to suboptimal penetration. Electronically signed by: Krishan Aguila M.D. 11/01/2016 6:42 PM Dictated Date/Time: 11/01/2016 6:36 PM
--- NOTE | 2016-11-01 18:45 | DIAGNOSTIC IMAGING REPORT ---
TESTICULAR ULTRASOUND CLINICAL HISTORY: scrotal tenderness COMPARISON STUDY: No previous studies for comparison. FINDINGS: The right testis measures 38 x 25 x 26 mm. The left testis measures 40 x 16 x 24 mm. No intratesticular masses are visualized. There is no evidence of testicular torsion. There is a large right-sided hydrocele. Right-sided epididymal cysts are visualized. There is no evidence of significant epididymal hyperemia. The patient requested that the exam be stopped prior to completion IMPRESSION: 1. No evidence of intratesticular mass 2. No evidence of testicular torsion 3. Large right-sided hydrocele Electronically signed by: Lazarus Abbott M.D. 11/01/2016 6:44 PM Dictated Date/Time: 11/01/2016 6:41 PM
[2016-11-01] MEDS ORDERED: CIPROFLOXACIN 400MG / 200ML D5W IV STA (19:21)
[2016-11-01] MEDS ORDERED: HALOPERIDOL LACTATE 5 MG/ML 1 ML VIAL IM PRN (20:00)
[2016-11-01] MEDS ORDERED: ONDANSETRON INJ 2 MG/ML 2 ML VIAL IV PRN (20:00)
[2016-11-01] MEDS ORDERED: FLUTICASONE PROPIONATE NA SPR 16 GM BTL NAE PRN (20:00)
[2016-11-01] MEDS ORDERED: ALUMINUM/MAGNESIUM/SIMETH (MAALOX MAX) 30 ML UDC PO PRN (20:00)
[2016-11-01] MEDS ORDERED: HEPARIN SOD 5000 UNIT/0.5 ML CARP SQ SCH (20:00)
[2016-11-01] MEDS ORDERED: FEXOFENADINE HCL 180 MG TAB PO PRN (20:00)
[2016-11-01] MEDS ORDERED: MoRPHine SULFATE 2 MG/ML CARP IV ONE (20:00)
[2016-11-01] MEDS ORDERED: ACETAMINOPHEN 325 MG TAB PO PRN (20:00)
[2016-11-01] MEDS ORDERED: DICLOFENAC SOD 1% GEL 100 GM TUBE EXT PRN (20:00)
[2016-11-01] MEDS ORDERED: FURO-85 PO (20:11)
[2016-11-01] MEDS ORDERED: POTA10CA28 PO (20:11)
--- NOTE | 2016-11-01 20:33 | History and Physical ---
History & Physical Date & Time of Service: Nov 01, 2016 at 20:12 Chief Complaint: Pain In Private Area Primary Care Physician: Portia Candelaria M.D. 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 Initially was following with in [place] but then shifted to [place] for second opinion.Had cystoscopy recently which was not completed secondary to narrow orifices and biopsy done at that time was benign. Scheduled to have another cystoscopy later.Family likes to see the patient if urology consulted is warranted during this admission. says patient might have had fever yesterday. No gross blood in urine. Poor appetite. Nauseous but no vomiting.Received Ativan in [place] as patient was combative. Currently confused and was not able to answer my questions. Past Medical/Surgical History Medical Problems: (1) Basal cell carcinoma Status: Chronic (2) BPH (benign prostatic hyperplasia) Status: Chronic (3) CAD (coronary artery disease) Permanent Comment: s/p mid LAD and left circumflex stents in 2007 Status: Chronic (4) Carotid artery plaque Permanent Comment: carotid doppler 02/2016 showed < 50% stenosis bilaterally Status: Chronic (5) Chronic systolic (congestive) heart failure Permanent Comment: echo 08/2014 - EF 40-45%, grade I diastolic dysfunction; echo 02/2016- examination quality was limited. grossly normal LV function (EF 50 -54%). Moderate concentric LVH. RV not well visualized. Left and right atrium not well visualized. No significant valvular disease was present. Status: Chronic (6) COPD, severe Status: Chronic (7) Depression Status: Chronic (8) Diabetes mellitus Permanent Comment: type 2 Status: Chronic (9) Dyslipidemia Status: Chronic (10) Esophageal stricture Permanent Comment: s/p dilation Status: Chronic (11) GERD (gastroesophageal reflux disease) Status: Chronic (12) High degree atrioventricular block Permanent Comment: s/p pacemaker with upgrade to biventricular device in 2014 Status: Resolved (13) Ischemic cardiomyopathy Status: Chronic (14) DENISHA (obstructive sleep apnea) Status: Chronic (15) Pulmonary nodule Permanent Comment: RUL 15 mm 06/24/14, 18 mm 10/12/16 Status: Chronic (16) Renal artery stenosis Status: Chronic (17) Renal calculi Status: Chronic Surgical Problems: (1) H/O hand surgery Status: Chronic (2) S/P cataract surgery Status: Chronic (3) S/P cholecystectomy Status: Chronic (4) S/P coronary artery stent placement Status: Chronic (5) S/P sinus surgery Status: Chronic (6) Status post total knee replacement, right Status: Chronic Family History Cardiac disorder FATHER BROTHER SISTER Diabetes mellitus BROTHER SISTER Hypertension FATHER SISTER Social History Smoking Status: Former Smoker Marital Status: Housing status: lives with family Occupational Status: retired Immunizations History of Influenza Vaccine: Yes Influenza Vaccine Date: Feb 09, 2015 History of Tetanus Vaccine?: Yes Tetanus Immunization Date: Jan 30, 2008 History of Pneumococcal: Yes Pneumococcal Date: Sep 16, 2014 Multi-Drug Resistant Organisms History of MDRO: No Allergies Coded Allergies: Penicillins (Verified Allergy, Mild, RASH, 11/01/16) Clindamycin (Verified Allergy, Unknown, UNKNOWN, 11/01/16) Mirabegron (Verified Adverse Reaction, Severe, DELIRIUM, 11/01/16) Confusion, slurred speech Morphine (Verified Adverse Reaction, Intermediate, mental status change, ) Oxycodone (Verified Adverse Reaction, Mild, CONFUSION, 11/01/16) Home Medications Scheduled Aspirin (Aspirin), 81 MG PO DAILY Cholecalciferol (Vitamin D3), 2,000 UNITS PO DAILY Cyanocobalamin (Vitamin B-12), 1,000 MCG PO DAILY Finasteride (Finasteride), 5 MG PO DAILY Furosemide (Lasix), 20 MG PO DAILY Gabapentin (Neurontin), 100 MG PO HS Glipizide (Glipizide Er), 5 MG PO DAILY Home O2 Therapy (Oxygen), 3 LITERS NA UD Isosorbide Mononitrate (Isosorbide Mononitrate ER), 30 MG PO QAM Ketoconazole (Ketoconazole), 1 APPLN TOP UD Metoprolol Succinate (Toprol Xl), 50 MG PO DAILY Pantoprazole (Protonix), 40 MG PO DAILY Pentosan Polysulfate Sodium (Elmiron), 100 MG PO BID Potassium Chloride (Micro-K Ext Rel), 10 MEQ PO DAILY [place] ([place]renoa Repens) (S[place]), 1,000 MG PO BID Sennosides-Docusate Sodium (Qc Stool Softener Plus [place]), 2 TABS PO HS Simvastatin (Simvastatin), 20 MG PO HS Tamsulosin HCl (Tamsulosin HCl), 0.4 MG PO HS Scheduled PRN Diclofenac Sodium (Topical) (Diclofenac Sodium), 2 GM TOP BID PRN for Fexofenadine Hcl (Randa), 180 MG PO DAILY PRN for ALLERGIES Fluticasone Propionate (Nasal) (Flonase Allergy Relief), 2 SPRAYS [place] DAILY PRN for Allergy Symptoms Ipratropium [place] (Atrovent 0.02% Soln), 2.5 ML NEB QID PRN for Shortness of Breath Ketoconazole (Ketoconazole), 1 APPLN TOP DAILY PRN for Levalbuterol (Levalbuterol HCl), 1 VIAL INH 2-3XDAILY PRN for Shortness of Breath Review of Systems NOT ABLE TO DO COMPLETE ROS PATIENT IS CONFUSED Constitutional: + fever Physical Exam Vital Signs Date Time Temp Pulse Resp B/P (MAP) Pulse Ox O2 Delivery O2 Flow Rate FiO2 11/01/16 18:40 89 18 147/62 91 11/01/16 16:30 78 20 128/65 93 11/01/16 14:36 36.4 98 18 111/56 91 Room Air General Appearance: + mild distress Head: normocephalic, atraumatic Eyes: PERRL Neck: supple, no adenopathy, no carotid bruits Respiratory/Chest: lungs clear, normal breath sounds, no respiratory distress, no accessory muscle use Cardiovascular: regular rate, rhythm, no edema, no gallop, no murmur Abdomen/GI: normal bowel sounds, non tender, soft, no organomegaly Extremities/Musculoskelatal: normal inspection, no pedal edema Neurologic/Psych: alert, + disoriented Skin: normal color, warm/dry, no rash Diagnostics Laboratory Results Results Past 24 Hours Test 11/01/16 15:32 11/01/16 15:59 11/01/16 17:50 Range/Units White Blood Count 9.32 4.8-10.8 K/uL Red Blood Count 4.30 4.7-6.1 M/uL Hemoglobin 12.1 14.0-18.0 g/dL Hematocrit 39.4 42-52 % Mean Corpuscular Volume 91.6 80-100 fL Mean Corpuscular Hemoglobin 28.1 25-34 pg Mean Corpuscular Hemoglobin Concent 30.7 32-36 g/dl Platelet Count 224 130-400 K/uL Mean Platelet Volume 8.9 7.4-10.4 fL Neutrophils (%) (Auto) 77.0 % Lymphocytes (%) (Auto) 13.2 % Monocytes (%) (Auto) 8.2 % Eosinophils (%) (Auto) 1.2 % Basophils (%) (Auto) 0.2 % Neutrophils # (Auto) 7.18 1.4-6.5 K/uL Lymphocytes # (Auto) 1.23 1.2-3.4 K/uL Monocytes # (Auto) 0.76 0.11-0.59 K/uL Eosinophils # (Auto) 0.11 0-0.5 K/uL Basophils # (Auto) 0.02 0-0.2 K/uL RDW Standard Deviation 45.9 36.4-46.3 fL RDW Coefficient of Variation 13.7 11.5-14.5 % Immature Granulocyte % (Auto) 0.2 % Immature Granulocyte # (Auto) 0.02 0.00-0.02 K/uL Sodium Level 143 136-145 mmol/L Potassium Level 4.4 3.5-5.1 mmol/L Chloride Level 110 98-107 mmol/L Carbon Dioxide Level 28 21-32 mmol/L Anion Gap 5.0 3-11 mmol/L Blood Urea Nitrogen 14 7-18 mg/dl Creatinine 1.90 0.60-1.40 mg/dl Est Creatinine Clear Calc Drug Dose 35.3 ml/min Estimated GFR () 37.2 Estimated GFR (Non- 32.1 BUN/Creatinine Ratio 7.3 10-20 Random Glucose 205 70-99 mg/dl Calcium Level 8.6 8.5-10.1 mg/dl Bedside Troponin I < 0.030 0-0.045 ng/ml Urine Color ORANGE Urine Appearance TURBID CLEAR Urine pH 6.0 4.5-7.5 Urine Specific [place] 1.017 1.000-1.030 Urine Protein 2+ NEG Urine Glucose (UA) NEG NEG Urine Ketones NEG NEG Urine Occult Blood 3+ NEG Urine Nitrite POS NEG Urine Bilirubin NEG NEG Urine Urobilinogen NEG NEG Urine Leukocyte Esterase LARGE NEG Urine WBC (Auto) >30 0-5 /hpf Urine RBC (Auto) 5-10 0-4 /hpf Urine Hyaline Casts (Auto) 1-5 0-5 /lpf Urine Epithelial Cells (Auto) >30 0-5 /lpf Urine Bacteria (Auto) 1+ NEG Urine Pathogenic Casts 0 /lpf Urine Yeast (Auto) BUDDING NONE PRSENT Diagnostic Radiology cxr: 1. 2.1 cm right lung nodule which corresponds to the upper lobe nodule shown on prior chest CT. This is highly suggestive of bronchogenic carcinoma. 2. Small bilateral pleural effusions with hazy bibasilar opacities which favor atelectasis over consolidation. 3. Trace bilateral pleural effusions. ct head : unremarkable Renal US: 1. Mild right collecting system dilatation. 2. Study compromised by suboptimal penetration. The bilateral renal calculi shown on CT of July 03, 2016 are not visualized on this exam, likely due to suboptimal penetration. Testicular Us: 1. No evidence of intratesticular mass 2. No evidence of testicular torsion 3. Large right-sided hydrocele other Impression Assessment and Plan ALTERED MENTAL STATUS Encephalopathy mostly from UTI received cipro in ER will start on rocephin gentle fluids follow cultures ABNORMAL CXR CXR shows. 2.1 cm right lung nodule which corresponds to the upper lobe nodule shown on prior chest CT. This is highly suggestive of bronchogenic carcinoma. will consult pulmonary in am URINARY SYMPTOMS Has chronic dysuria, incontinence, overactive bladder, BPH Follows with [facility] [place] Cystoscopy 09/27/16 showed very small bladder capacity and ureteral orifices were difficult to visualize. cytology was benign plan for cystoscopy in [place] On finasteride, Flomax, Elmiron,. Will consider consulting if needed. CKD STAGE III Creat is 1.9 on gentle fluids f/u labs in am CAD stable On aspirin, statin, beta miko, nitrates CHRONIC SYSTOLIC CHF ef 50-54% o echo done in 2015 on lasix on gentle fluids will monitor for volume overload. COPD Not in exacerbation Continue chronic O2 3 liters NC HS and PRN exertion PRN nebs DM TYPE 2 Holding glipizide Insulin sliding scale will monitor DEPRESSION Continue sertraline VTE PROPHYLAXIS No anticoagulant due to recent hematuria SCD's CODE STATUS Full code only if there is chance of recover as per my discussion with the . DISPOSITION Admit to med/surg VTE Prophylaxis VTE Risk Assessment Done? Y/N: Yes Risk Level: High Given or contraindicated: SCD's
[2016-11-01] MEDS: INSULIN ASPART 100 UNITS/ML 3 ML PEN SC SCH (21:00)
[2016-11-01 21:04] VITALS: BP 186/81; PULSE 99; TEMP 36.7; Ht 180.3 cm; Wt 95.5 kg
[2016-11-01] MEDS: SODIUM CHLORIDE 0.9% 1000ML 1,000 ML IV SCH (22:08)
[2016-11-01] MEDS: OXYCODONE/ACETAMINOPHEN 5-325 TAB PO PRN (22:09)
[2016-11-01] MEDS ORDERED: GLUCAGON FOR INJ 1 MG VIAL SQ PRN (22:15)
[2016-11-01] MEDS ORDERED: DEXTROSE 50% 50 ML SYR IV PRN (22:15)
[2016-11-01] MEDS ORDERED: GLUCOSE 10 TABS/TUBE PO PRN (22:15)
[2016-11-01] MEDS ORDERED: GLUCOSE 40% GEL 15 GM TUBE PO PRN (22:15)
[2016-11-01 22:29] VITALS: BP 158/72; PULSE 91; O2SAT 91
[2016-11-01] MEDS: CEFTRIAXONE SOD INJ 1 GM in DEXTROSE 5% ADD-VANTAGE 50ML 50 ML IV SCH (22:37)
[2016-11-01] MEDS: PENTOSAN POLYSULFATE SODIUM 100 MG CAP PO SCH (23:58)
[2016-11-01] MEDS: TAMSULOSIN HCL 0.4 MG CAP PO SCH (23:58)
[2016-11-01] MEDS: DOCUSATE SODIUM/SENNA 50/8.6MG TAB PO SCH (23:58)
[2016-11-01] MEDS: GABAPENTIN 100 MG CAP PO SCH (23:58)
[2016-11-01] MEDS: SIMVASTATIN 20 MG TAB PO SCH (23:58)
[2016-11-02 00:06] VITALS: BP 155/78; PULSE 88; TEMP 36.8; O2SAT 97
[2016-11-02] MEDS: OXYCODONE/ACETAMINOPHEN 5-325 TAB PO PRN (04:29)
[2016-11-02 07:04] LABS: BASO % 0.3 %; BASO ABS # 0.02 K/uL (0-0.2); COMPLETE YES; EOS % 1.3 %; HEMATOCRIT 37.5 % (42-52); IG% 0.5 %; LYMPH % 11.6 %; MEAN CELL VOLUME 90.8 fL (80-100); MEAN CORPUSCULAR HEMOGLOBIN 27.6 pg (25-34); MEAN CORPUSCULAR HGB CONC 30.4 g/dl (32-36); MEAN PLATELET VOLUME 8.8 fL (7.4-10.4); NEUT % 77.3 %; PLATELET COUNT 193 K/uL (130-400); RED BLOOD COUNT 4.13 M/uL (4.7-6.1); WHITE BLOOD COUNT 7.76 K/uL (4.8-10.8)
[2016-11-02 07:34] LABS: BUN/CREATININE RATIO 8.1 (10-20); CALCIUM 8.7 mg/dl (8.5-10.1); CREATININE 1.8 mg/dl (0.60-1.40); MAGNESIUM 1.8 mg/dl (1.8-2.4); POTASSIUM 4.4 mmol/L (3.5-5.1)
[2016-11-02 07:54] VITALS: BP 158/75; PULSE 89; TEMP 37.2; O2SAT 90
[2016-11-02] MEDS: ASPIRIN 81 MG ECTAB PO SCH (08:44)
[2016-11-02] MEDS: ISOSORBIDE MONONITRATE 30 MG TABCR PO SCH (08:44)
[2016-11-02] MEDS: POTASSIUM CHLORIDE 10 MEQ TABCR PO SCH (08:44)
[2016-11-02] MEDS: PENTOSAN POLYSULFATE SODIUM 100 MG CAP PO SCH ×2 (08:44→20:22)
[2016-11-02] MEDS: CYANOCOBALAMIN 500 MCG TAB (VIT B-12) PO SCH (08:45)
[2016-11-02] MEDS: CHOLECALCIFEROL 1000 INTER.UNIT TAB PO SCH (08:45)
[2016-11-02] MEDS: PANTOprazole SOD 40 MG TAB PO SCH (08:45)
[2016-11-02] MEDS: FINASTERIDE 5 MG TAB PO SCH (08:45)
[2016-11-02] MEDS: METOPROLOL SUCC 50MG EXT REL TAB PO SCH (08:45)
[2016-11-02] MEDS: FUROSEMIDE 20 MG TAB PO SCH (08:45)
[2016-11-02] MEDS: SODIUM CHLORIDE 0.9% 1000ML 1,000 ML IV SCH ×2 (08:46→20:26)
[2016-11-02] MEDS: KETOCONAZOLE 2% CR 15 GM TUBE EXT SCH (08:46)
[2016-11-02] MEDS: INSULIN ASPART 100 UNITS/ML 3 ML PEN SC SCH ×4 (08:48→21:00)
--- NOTE | 2016-11-02 09:50 | Progress Note ---
Internal Med Progress Note Date of Service: Nov 02, 2016. Provider Documentation: SUBJECTIVE: Patient is doing better. Mental status is near his baseline. Awake, alert, oriented x 2. Does have chronic dysuria, bladder spasms- unchanged No fever, chills, abdominal pain. OBJECTIVE: Vital Signs-as noted below Exam: General-AAOX2, no distress Neck-Supple Lungs-AEBE, no wheezing, rales Heart-S1, S2 normal Abdomen- Soft, non tender, non distended, BS present Extremities-No edema Lab data as noted below. ASSESSMENT & PLAN: ALTERED MENTAL STATUS : Near baseline now -Possibly from UTI and likely does have some baseline cognitive decline age related. -On IV Rocephin -Urine culture to follow up [place] ON CKD III Baseline around 1.4, came with creatinine of 1.8 -IV Fluids -Monitor ABNORMAL CXR CXR shows. 2.1 cm right lung nodule which corresponds to the upper lobe nodule shown on prior chest CT. This is highly suggestive of bronchogenic carcinoma. -Pulmonary was consulted. However, patient is already being followed up outpatient by Dr Johnson and plan is for repeat CT scan in future CHRONIC URINARY SYMPTOMS Has chronic dysuria, incontinence, overactive bladder, BPH. Tried multiple medications in past but failed to relieve his chronic symptoms. -Follows with [facility] [place] -Cystoscopy 09/27/16 showed very small bladder capacity and ureteral orifices were difficult to visualize. cytology was benign - plan for cystoscopy in [place] -On finasteride, Flomax, Elmiron,. CAD stable On aspirin, statin, beta miko, nitrates CHRONIC SYSTOLIC CHF EF 50-54% o echo done in 2016 -on lasix -on gentle fluids -will monitor for volume overload. COPD Not in exacerbation -Continue chronic O2 3 liters NC HS and PRN exertion -PRN nebs DM TYPE 2 -Holding glipizide -Insulin sliding scale DEPRESSION -Continue sertraline VTE PROPHYLAXIS -No anticoagulant due to recent hematuria -SCD's CODE STATUS -Full code only if there is chance of recover as per my discussion with the . DISPOSITION Eager to be discharged Okay to discharge home tomorrow if stable Vital Signs: Date Time Temp Pulse Resp B/P (MAP) Pulse Ox O2 Delivery O2 Flow Rate FiO2 11/02/16 09:26 Room Air 11/02/16 07:54 37.2 89 16 158/75 (102) 90 Room Air 11/02/16 00:06 36.8 88 20 155/78 (103) 97 3.0 11/02/16 00:00 Room Air 11/01/16 22:29 91 158/72 (100) 91 Room Air 11/01/16 21:04 36.7 99 18 186/81 Room Air 91 11/01/16 20:29 37.6 90 20 175/79 91 11/01/16 20:17 37.6 90 20 175/79 91 Room Air 11/01/16 18:40 89 18 147/62 91 11/01/16 16:30 78 20 128/65 93 11/01/16 14:36 36.4 98 18 111/56 91 Room Air Lab Results: Results Past 24 Hours Test 11/01/16 15:32 11/01/16 15:59 11/01/16 17:50 11/01/16 21:04 Range/Units White Blood Count 9.32 4.8-10.8 K/uL Red Blood Count 4.30 4.7-6.1 M/uL Hemoglobin 12.1 14.0-18.0 g/dL Hematocrit 39.4 42-52 % Mean Corpuscular Volume 91.6 80-100 fL Mean Corpuscular Hemoglobin 28.1 25-34 pg Mean Corpuscular Hemoglobin Concent 30.7 32-36 g/dl Platelet Count 224 130-400 K/uL Mean Platelet Volume 8.9 7.4-10.4 fL Neutrophils (%) (Auto) 77.0 % Lymphocytes (%) (Auto) 13.2 % Monocytes (%) (Auto) 8.2 % Eosinophils (%) (Auto) 1.2 % Basophils (%) (Auto) 0.2 % Neutrophils # (Auto) 7.18 1.4-6.5 K/uL Lymphocytes # (Auto) 1.23 1.2-3.4 K/uL Monocytes # (Auto) 0.76 0.11-0.59 K/uL Eosinophils # (Auto) 0.11 0-0.5 K/uL Basophils # (Auto) 0.02 0-0.2 K/uL RDW Standard Deviation 45.9 36.4-46.3 fL RDW Coefficient of Variation 13.7 11.5-14.5 % Immature Granulocyte % (Auto) 0.2 % Immature Granulocyte # (Auto) 0.02 0.00-0.02 K/uL Sodium Level 143 136-145 mmol/L Potassium Level 4.4 3.5-5.1 mmol/L Chloride Level 110 98-107 mmol/L Carbon Dioxide Level 28 21-32 mmol/L Anion Gap 5.0 3-11 mmol/L Blood Urea Nitrogen 14 7-18 mg/dl Creatinine 1.90 0.60-1.40 mg/dl Est Creatinine Clear Calc Drug Dose 35.3 ml/min Estimated GFR () 37.2 Estimated GFR (Non- 32.1 BUN/Creatinine Ratio 7.3 10-20 Random Glucose 205 70-99 mg/dl Calcium Level 8.6 8.5-10.1 mg/dl Bedside Troponin I < 0.030 0-0.045 ng/ml Urine Color ORANGE Urine Appearance TURBID CLEAR Urine pH 6.0 4.5-7.5 Urine Specific [place] 1.017 1.000-1.030 Urine Protein 2+ NEG Urine Glucose (UA) NEG NEG Urine Ketones NEG NEG Urine Occult Blood 3+ NEG Urine Nitrite POS NEG Urine Bilirubin NEG NEG Urine Urobilinogen NEG NEG Urine Leukocyte Esterase LARGE NEG Urine WBC (Auto) >30 0-5 /hpf Urine RBC (Auto) 5-10 0-4 /hpf Urine Hyaline Casts (Auto) 1-5 0-5 /lpf Urine Epithelial Cells (Auto) >30 0-5 /lpf Urine Bacteria (Auto) 1+ NEG Urine Pathogenic Casts 0 /lpf Urine Yeast (Auto) BUDDING NONE PRSENT Bedside Glucose 105 70-99 mg/dl Test 11/02/16 06:33 11/02/16 07:40 Range/Units White Blood Count 7.76 4.8-10.8 K/uL Red Blood Count 4.13 4.7-6.1 M/uL Hemoglobin 11.4 14.0-18.0 g/dL Hematocrit 37.5 42-52 % Mean Corpuscular Volume 90.8 80-100 fL Mean Corpuscular Hemoglobin 27.6 25-34 pg Mean Corpuscular Hemoglobin Concent 30.4 32-36 g/dl Platelet Count 193 130-400 K/uL Mean Platelet Volume 8.8 7.4-10.4 fL Neutrophils (%) (Auto) 77.3 % Lymphocytes (%) (Auto) 11.6 % Monocytes (%) (Auto) 9.0 % Eosinophils (%) (Auto) 1.3 % Basophils (%) (Auto) 0.3 % Neutrophils # (Auto) 6.00 1.4-6.5 K/uL Lymphocytes # (Auto) 0.90 1.2-3.4 K/uL Monocytes # (Auto) 0.70 0.11-0.59 K/uL Eosinophils # (Auto) 0.10 0-0.5 K/uL Basophils # (Auto) 0.02 0-0.2 K/uL RDW Standard Deviation 45.8 36.4-46.3 fL RDW Coefficient of Variation 13.7 11.5-14.5 % Immature Granulocyte % (Auto) 0.5 % Immature Granulocyte # (Auto) 0.04 0.00-0.02 K/uL Sodium Level 142 136-145 mmol/L Potassium Level 4.4 3.5-5.1 mmol/L Chloride Level 110 98-107 mmol/L Carbon Dioxide Level 29 21-32 mmol/L Anion Gap 3.0 3-11 mmol/L Blood Urea Nitrogen 15 7-18 mg/dl Creatinine 1.80 0.60-1.40 mg/dl Est Creatinine Clear Calc Drug Dose 37.3 ml/min Estimated GFR () 39.7 Estimated GFR (Non- 34.3 BUN/Creatinine Ratio 8.1 10-20 Random Glucose 101 70-99 mg/dl Calcium Level 8.7 8.5-10.1 mg/dl Magnesium Level 1.8 1.8-2.4 mg/dl Bedside Glucose 101 70-99 mg/dl
[2016-11-02] MEDS: HYDROCODONE/ACETAMOPHEN 5/325MG TAB PO PRN ×2 (12:03→18:20)
--- NOTE | 2016-11-02 14:14 | Pulmonary Consultation ---
History General Date of Service: Nov 02, 2016. Stated Complaint: Altered Mental Status HPI The patient is a 81 year old male who presents to [facility] with complaints of Altered Mental Status. The patient's primary care provider is Portia Candelaria M.D.. Mr. Almendarez is an 81-year-old male with past pulmonary history of COPD currently on 3 L long-term oxygen therapy as well right lung nodule for which he is being managed at the [facility] who was admitted on for worsening altered mental status. On initial presentation to the ER his vital signs were 36.4C, respiratory rate of 18, pulse 98 blood pressure 111 /56 saturating 91% on room air. Laboratory data significant for creatinine of 1.9. CXR shows a 2.1 cm right lung nodule which corresponds to the upper lobe nodule shown on prior chest CT done in September 2016. Per history, he has had several episodes of altered mental status secondary to her urinary tract infections. He is being empirically treated with IV Rocephin. Patient denies any fevers, chills, chest pain, cough, hemoptysis, shortness of breath, dyspnea on exertion, lower extremity edema or swelling. He denies any change in appetite or weight loss. His only pulmonary medication at home are ipratropium and albuterol nebulizer every 6 hours and Xopenex when necessary. Past Medical History Past Medical History: COPD on supplemental oxygen Solitary pulmonary nodule hypertension CAD GERD Chronic renal insufficiency Diabetes Nephrolithiasis Genitourinary infections UTI Arthritis BPH basal cell carcinoma Past Medical History: arthritis, BPH, congestive heart failure, COPD, coronary artery disease, depression, diabetes, GERD, heart disease, high cholesterol, hypertension, pneumonia, other Past Surgical History: History of bronchoscopy Thoracentesis Cataract Surgery Renal stent placement Cholecystectomy Pericardial window Hand surgery Knee replacement Lithotripsy Cardiac pacemaker placement Renal vessel revision Sinus surgery Past Surgical History: angioplasty with stent, cholecystectomy, pacemaker, sinus surgery, TKR, other Family History Cardiac disorder FATHER BROTHER SISTER Diabetes mellitus BROTHER SISTER Hypertension FATHER SISTER His family history of prostate cancer in brother, sisters with breast cancer, as well as heart disease. Social History He is a former smoker of 30 pack year history he quit at the age of 39. 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 Hx Tobacco Use In Past Year?: No Smoking Status: Former Smoker Alcohol: no current use Marital status: Housing status: lives with family Occupational Status: retired Immunizations History of Influenza Vaccine: Yes Influenza Vaccine Date: Feb 09, 2015 History of Tetanus Vaccine?: Yes Tetanus Immunization Date: Jan 30, 2008 History of Pneumococcal: Yes Pneumococcal Date: Sep 16, 2014 History of MDRO History of MDRO: No Allergies Coded Allergies: Penicillins (Verified Allergy, Mild, RASH, 11/01/16) Clindamycin (Verified Allergy, Unknown, UNKNOWN, 11/01/16) Mirabegron (Verified Adverse Reaction, Severe, DELIRIUM, 11/01/16) Confusion, slurred speech Morphine (Verified Adverse Reaction, Intermediate, mental status change, ) Oxycodone (Verified Adverse Reaction, Mild, CONFUSION, 11/01/16) Current Medications Reported Home Medications Medications Dose Route/Sig Max Daily Dose Days Date Category Dose Instructions Micro-K Ext Rel (Potassium Chloride) 10 Meq Capcr 10 Meq PO DAILY 11/01/16 Rx Lasix (Furosemide) 20 Mg Tab 20 Mg PO DAILY 11/01/16 Rx Glipizide Er (Glipizide) 5 Mg Tab 5 Mg PO DAILY 10/13/16 Rx Qc Stool Softener Plus La (Sennosides-Docusate Sodium) 1 Tab Tab 2 Tabs PO HS 10/10/16 Reported Ketoconazole 60 Appln/120 Ml Sham 1 Appln TOP UD 10/10/16 Reported APPLY TOPICALLY TO AFFECTED AREA EVERY 3 DAYS. MASSAGE INTO SCALP AND FACE, RINSE AFTER 5 MINUTES. DO 3 TIMES WEEKLY. Ketoconazole 45 Appln/15 Gm Cr 1 Appln TOP DAILY PRN 10/10/16 Reported Diclofenac Sodium (Diclofenac Sodium (Topical)) 1 % Gel 2 Gm TOP BID PRN 10/10/16 Reported Randa (Fexofenadine Hcl) 180 Mg Tab 180 Mg PO DAILY PRN 10/10/16 Reported Aspirin 81 Mg Tab 81 Mg PO DAILY 10/10/16 Reported Neurontin (Gabapentin) 100 Mg Cap 100 Mg PO HS 10/10/16 Reported Protonix (Pantoprazole Sodium) 40 Mg Tab 40 Mg PO DAILY 10/10/16 Reported Toprol Xl (Metoprolol Succinate) 50 Mg Tabcr 50 Mg PO DAILY 10/10/16 Reported Vitamin D3 (Cholecalciferol) 1,000 Unit Tab 2,000 Units PO DAILY 04/11/16 Reported Finasteride 5 Mg Tab 5 Mg PO DAILY 04/11/16 Reported Simvastatin 20 Mg Tab 20 Mg PO HS 04/11/16 Reported Isosorbide Mononitrate ER (Isosorbide Mononitrate) 30 Mg Tabcr 30 Mg PO QAM 04/11/16 Reported Tamsulosin HCl 0.4 Mg Cap 0.4 Mg PO HS 04/11/16 Reported Oxygen Gas 3 Liters NA UD 11/19/15 Reported HS and PRN activity Elmiron (Pentosan Polysulfate Sodium) 100 Mg Cap 100 Mg PO BID 11/19/15 Reported Levalbuterol HCl (Levalbuterol) 1.25 Mg/3 Ml Nebu 1 Vial INH 2-3XDAILY PRN 07/14/15 Reported Atrovent 0.02% Soln (Ipratropium [place]) 2.5 Ml Nebu 2.5 Ml NEB QID PRN 06/26/15 Reported Saw Terrell (Saw Terrell (Serenoa Repens)) 500 Mg Cap 1,000 Mg PO BID 01/05/15 Reported Flonase Allergy Relief (Fluticasone Propionate (Nasal)) 50 Mcg/Act Spr 2 Sprays [place] DAILY PRN 01/05/15 Reported Vitamin B-12 (Cyanocobalamin) 1,000 Mcg Tab 1,000 Mcg PO DAILY 07/12/12 Reported Physical Physical Exam Vital Signs: Date Time Temp Pulse Resp B/P (MAP) Pulse Ox O2 Delivery O2 Flow Rate FiO2 11/02/16 09:26 Room Air 11/02/16 07:54 37.2 89 16 158/75 (102) 90 Room Air 11/02/16 00:06 36.8 88 20 155/78 (103) 97 3.0 11/02/16 00:00 Room Air 11/01/16 22:29 91 158/72 (100) 91 Room Air 11/01/16 21:04 36.7 99 18 186/81 Room Air 91 11/01/16 20:29 37.6 90 20 175/79 91 11/01/16 20:17 37.6 90 20 175/79 91 Room Air 11/01/16 18:40 89 18 147/62 91 11/01/16 16:30 78 20 128/65 93 11/01/16 14:36 36.4 98 18 111/56 91 Room Air Head: normocephalic, atraumatic Skin: no lesions or rashes noted Eyes: normal inspection, EOMI, sclerae normal ENT: normal ENT inspection, pharynx normal Neck: supple, no adenopathy, trachea midline Respiratory/Chest: Good air entry bilaterally with mildly bibasilar crackles Cardiovascular: regular rate, rhythm, no edema, no murmur Abdomen / GI: normal bowel sounds, non tender, obese Back: Intact Extremities: normal inspection, normal range of motion, trace edema of bilateral lower extremities no clubbing, no cyanosis. Neurologic/Psych: no motor/sensory deficits, awake alert oriented 2 Diagnostics Labs Results Past 24 Hours Test 11/01/16 15:32 11/01/16 15:59 11/01/16 17:50 11/01/16 21:04 Range/Units White Blood Count 9.32 4.8-10.8 K/uL Red Blood Count 4.30 4.7-6.1 M/uL Hemoglobin 12.1 14.0-18.0 g/dL Hematocrit 39.4 42-52 % Mean Corpuscular Volume 91.6 80-100 fL Mean Corpuscular Hemoglobin 28.1 25-34 pg Mean Corpuscular Hemoglobin Concent 30.7 32-36 g/dl Platelet Count 224 130-400 K/uL Mean Platelet Volume 8.9 7.4-10.4 fL Neutrophils (%) (Auto) 77.0 % Lymphocytes (%) (Auto) 13.2 % Monocytes (%) (Auto) 8.2 % Eosinophils (%) (Auto) 1.2 % Basophils (%) (Auto) 0.2 % Neutrophils # (Auto) 7.18 1.4-6.5 K/uL Lymphocytes # (Auto) 1.23 1.2-3.4 K/uL Monocytes # (Auto) 0.76 0.11-0.59 K/uL Eosinophils # (Auto) 0.11 0-0.5 K/uL Basophils # (Auto) 0.02 0-0.2 K/uL RDW Standard Deviation 45.9 36.4-46.3 fL RDW Coefficient of Variation 13.7 11.5-14.5 % Immature Granulocyte % (Auto) 0.2 % Immature Granulocyte # (Auto) 0.02 0.00-0.02 K/uL Sodium Level 143 136-145 mmol/L Potassium Level 4.4 3.5-5.1 mmol/L Chloride Level 110 98-107 mmol/L Carbon Dioxide Level 28 21-32 mmol/L Anion Gap 5.0 3-11 mmol/L Blood Urea Nitrogen 14 7-18 mg/dl Creatinine 1.90 0.60-1.40 mg/dl Est Creatinine Clear Calc Drug Dose 35.3 ml/min Estimated GFR () 37.2 Estimated GFR (Non- 32.1 BUN/Creatinine Ratio 7.3 10-20 Random Glucose 205 70-99 mg/dl Calcium Level 8.6 8.5-10.1 mg/dl Bedside Troponin I < 0.030 0-0.045 ng/ml Urine Color ORANGE Urine Appearance TURBID CLEAR Urine pH 6.0 4.5-7.5 Urine Specific Reform 1.017 1.000-1.030 Urine Protein 2+ NEG Urine Glucose (UA) NEG NEG Urine Ketones NEG NEG Urine Occult Blood 3+ NEG Urine Nitrite POS NEG Urine Bilirubin NEG NEG Urine Urobilinogen NEG NEG Urine Leukocyte Esterase LARGE NEG Urine WBC (Auto) >30 0-5 /hpf Urine RBC (Auto) 5-10 0-4 /hpf Urine Hyaline Casts (Auto) 1-5 0-5 /lpf Urine Epithelial Cells (Auto) >30 0-5 /lpf Urine Bacteria (Auto) 1+ NEG Urine Pathogenic Casts 0 /lpf Urine Yeast (Auto) BUDDING NONE PRSENT Bedside Glucose 105 70-99 mg/dl Test 11/02/16 06:33 11/02/16 07:40 11/02/16 11:27 Range/Units White Blood Count 7.76 4.8-10.8 K/uL Red Blood Count 4.13 4.7-6.1 M/uL Hemoglobin 11.4 14.0-18.0 g/dL Hematocrit 37.5 42-52 % Mean Corpuscular Volume 90.8 80-100 fL Mean Corpuscular Hemoglobin 27.6 25-34 pg Mean Corpuscular Hemoglobin Concent 30.4 32-36 g/dl Platelet Count 193 130-400 K/uL Mean Platelet Volume 8.8 7.4-10.4 fL Neutrophils (%) (Auto) 77.3 % Lymphocytes (%) (Auto) 11.6 % Monocytes (%) (Auto) 9.0 % Eosinophils (%) (Auto) 1.3 % Basophils (%) (Auto) 0.3 % Neutrophils # (Auto) 6.00 1.4-6.5 K/uL Lymphocytes # (Auto) 0.90 1.2-3.4 K/uL Monocytes # (Auto) 0.70 0.11-0.59 K/uL Eosinophils # (Auto) 0.10 0-0.5 K/uL Basophils # (Auto) 0.02 0-0.2 K/uL RDW Standard Deviation 45.8 36.4-46.3 fL RDW Coefficient of Variation 13.7 11.5-14.5 % Immature Granulocyte % (Auto) 0.5 % Immature Granulocyte # (Auto) 0.04 0.00-0.02 K/uL Sodium Level 142 136-145 mmol/L Potassium Level 4.4 3.5-5.1 mmol/L Chloride Level 110 98-107 mmol/L Carbon Dioxide Level 29 21-32 mmol/L Anion Gap 3.0 3-11 mmol/L Blood Urea Nitrogen 15 7-18 mg/dl Creatinine 1.80 0.60-1.40 mg/dl Est Creatinine Clear Calc Drug Dose 37.3 ml/min Estimated GFR () 39.7 Estimated GFR (Non- 34.3 BUN/Creatinine Ratio 8.1 10-20 Random Glucose 101 70-99 mg/dl Calcium Level 8.7 8.5-10.1 mg/dl Magnesium Level 1.8 1.8-2.4 mg/dl Bedside Glucose 101 77 70-99 mg/dl Diagnostic Radiology Imaging: Chest x-ray from 11/01/2016 FINDINGS: A left subclavian biventricular pacer is in place. Mild cardiomegaly is noted. There is no evidence of pulmonary edema. There are trace bilateral pleural effusions. There are hazy bibasilar opacities. A 2.1 cm right mid lung nodule corresponds to the right upper lobe nodule shown on prior chest CT. IMPRESSION: 1. 2.1 cm right lung nodule which corresponds to the upper lobe nodule shown on prior chest CT. This is highly suggestive of bronchogenic carcinoma. 2. Small bilateral pleural effusions with hazy bibasilar opacities which favor atelectasis over consolidation. 3. Trace bilateral pleural effusions. CT chest done 10/12/2016 FINDINGS: Study is limited due to the absence of intravenous contrast enhancement. Interval development of right and to a lesser extent left effusion. Possible underlying nodular component is present consolidative infiltrative change. Interval increase in size of a spiculated density right upper lobe. This is in contact with the right major fissure line and measures 1.8 cm as compared to the prior study of 1.5 cm. Is slightly progressive pleural thickening medially lateral raising the possibility of chest wall involvement. Slight peribronchial thickening. No significant mediastinal or hilar adenopathy within limitations of overlying scan. IMPRESSION: 1. Mildly progressive nodular density right upper lobe now demonstrating a potential extension to the lateral pleural surface. 2. Interval development of right and to lesser extent left pleural effusions possibly with underlying atelectatic and/or nodular-type changes in both lung bases. 3. A neoplastic process is again the diagnosis of exclusion. Impression Assessment and Plan Chronic hypoxic respiratory failure COPD on long-term oxygen therapy Right upper lobe nodule Patient is currently being seen by Dr. Johnson as outpatient. On chart review he has had this RUL nodule on imaging done back in 2012. It appears to have been there for a at least 2 years prior to that. It is described as a right upper lobe lung nodule about 1.3 cm at the major fissure present. He has had surveillance and it has increased significantly in size. It is suspicious for malignancy. Patient at this time does not have the capability to make a decision regarding bronchoscopy for tissue biopsy as his mental status fluctuates. I will try to contact his as well as Dr. Johnson to see which as the best way to proceed during his hospitalization. Thank you Continue with oxygen therapy to maintain SaO2 btw 88-92%. Continue with nebulizers prn. I appreciate the consult.
[2016-11-02 16:10] VITALS: O2SAT 90
[2016-11-02 16:12] VITALS: BP 127/63; PULSE 74; TEMP 36.6; O2SAT 94
[2016-11-02] MEDS: LEVALBUTEROL 1.25MG/3ML NEB INH PRN (18:00)
[2016-11-02] MEDS: IPRATROPIUM BROMIDE NEB SOLN 0.02% 2.5 ML VIAL INH PRN (18:00)
[2016-11-02 18:02] VITALS: PULSE 95; O2SAT 92
[2016-11-02] MEDS: PHENAZOPYRIDINE HCL 200 MG TAB PO SCH (20:20)
[2016-11-02] MEDS: GABAPENTIN 100 MG CAP PO SCH (20:23)
[2016-11-02] MEDS: TAMSULOSIN HCL 0.4 MG CAP PO SCH (20:23)
[2016-11-02] MEDS: DOCUSATE SODIUM/SENNA 50/8.6MG TAB PO SCH (20:24)
[2016-11-02] MEDS: SIMVASTATIN 20 MG TAB PO SCH (20:24)
[2016-11-02] MEDS: CEFTRIAXONE SOD INJ 1 GM in DEXTROSE 5% ADD-VANTAGE 50ML 50 ML IV SCH (22:36)
[2016-11-03 00:02] VITALS: BP 173/70; PULSE 91; TEMP 36.9; O2SAT 94
[2016-11-03] MEDS: HYDROCODONE/ACETAMOPHEN 5/325MG TAB PO PRN ×4 (02:23→18:13)
[2016-11-03 06:32] LABS: BASO % 0.3 %; BASO ABS # 0.02 K/uL (0-0.2); COMPLETE YES; EOS % 2.1 %; HEMATOCRIT 37.3 % (42-52); IG% 0.5 %; LYMPH % 16.8 %; LYMPH ABS # 1.04 K/uL (1.2-3.4); MEAN CELL VOLUME 92.6 fL (80-100); MEAN CORPUSCULAR HEMOGLOBIN 27.5 pg (25-34); MEAN CORPUSCULAR HGB CONC 29.8 g/dl (32-36); MEAN PLATELET VOLUME 8.9 fL (7.4-10.4); MONO % 10.5 %; NEUT % 69.8 %; PLATELET COUNT 176 K/uL (130-400); RED BLOOD COUNT 4.03 M/uL (4.7-6.1)
[2016-11-03 07:15] LABS: BLOOD UREA NITROGEN 16 mg/dl (7-18); BUN/CREATININE RATIO 8.4 (10-20); CALCIUM 8.6 mg/dl (8.5-10.1); CARBON DIOXIDE 30 mmol/L (21-32); CHLORIDE 109 mmol/L (98-107); GLUCOSE 118 mg/dl (70-99); SODIUM 143 mmol/L (136-145)
[2016-11-03] MEDS: ISOSORBIDE MONONITRATE 30 MG TABCR PO SCH (07:35)
[2016-11-03] MEDS: ASPIRIN 81 MG ECTAB PO SCH (07:35)
[2016-11-03] MEDS: PANTOprazole SOD 40 MG TAB PO SCH (07:35)
[2016-11-03] MEDS: CYANOCOBALAMIN 500 MCG TAB (VIT B-12) PO SCH (07:35)
[2016-11-03] MEDS: METOPROLOL SUCC 50MG EXT REL TAB PO SCH (07:35)
[2016-11-03] MEDS: FUROSEMIDE 20 MG TAB PO SCH (07:36)
[2016-11-03] MEDS: FINASTERIDE 5 MG TAB PO SCH (07:36)
[2016-11-03] MEDS: POTASSIUM CHLORIDE 10 MEQ TABCR PO SCH (07:36)
[2016-11-03] MEDS: CHOLECALCIFEROL 1000 INTER.UNIT TAB PO SCH (07:36)
[2016-11-03] MEDS: PENTOSAN POLYSULFATE SODIUM 100 MG CAP PO SCH ×2 (07:37→21:46)
[2016-11-03] MEDS: KETOCONAZOLE 2% CR 15 GM TUBE EXT SCH (07:37)
[2016-11-03] MEDS: PHENAZOPYRIDINE HCL 200 MG TAB PO SCH ×3 (07:37→21:47)
[2016-11-03 07:53] VITALS: BP 137/79; PULSE 81; TEMP 37; O2SAT 94
[2016-11-03] MEDS: INSULIN ASPART 100 UNITS/ML 3 ML PEN SC SCH ×4 (08:37→21:54)
[2016-11-03 08:55] LABS: MAGNESIUM 1.7 mg/dl (1.8-2.4); POTASSIUM 4.5 mmol/L (3.5-5.1)
[2016-11-03] MEDS: SODIUM CHLORIDE 0.9% 1000ML 1,000 ML IV SCH ×2 (09:36→21:50)
--- NOTE | 2016-11-03 10:28 | Urology Consultation ---
History General Date of Service: Nov 03, 2016. Chief Complaint: testicular and perineal pain Primary Care Physician: Portia Candelaria M.D. Pt seen a urologist before?: Yes (Dr. Roman Rodney, [facility] urology in [place]. ) If yes, why?: BPH, chronic prostatitis, bladder pain History of Present Illness 81 yo male with a complicated past medical history admitted for increasing confusion and scrotal and perineal pain. The pt is well known to our service for his complicated hx including nephrolithiasis, urgency, frequency, bladder pain, and chronic prostatitis. He last saw Dr. Rodney in 2015, and since that time has sought a 2nd opinion with [facility] urology in [place]. He reports they did "nothing" for him there. He did have a cysto while in their care, and per the pt the cysto was not able to be completed d/t his "small bladder" and inability to pass the "hose." He was told he would need the procedure repeated at a later day. I do not have these records to review. Since that time, he reports developing gross hematuria with some clots. He did call [facility] urology regarding this issue, but was told "not to worry about it." The hematuria has since resolved, and he denies any dysuria or hematuria today. He has failed Myrbetriq, anticholinergics including Toviaz, and rescue treatments for his symptoms in the past. He is currently on Elmiron, finasteride , and Flomax. He primarily c/o testicular pain and perineal pain making it difficult for him to sit or walk today. This is an ongoing issue for him, but became worse prior to admission. He reports the pain is improved with pain medication. Cr noted to be 1.9 today. Baseline of 1.4. Renal u/s negative for stones. Testicular u/s showing a large right sided hydrocele. UC&S is pending. Imaging Imaging: Ultrasound Laboratory Last 24 Hours Test 11/02/16 11:27 11/02/16 16:58 11/02/16 20:55 11/03/16 06:22 Bedside Glucose 77 mg/dl 84 mg/dl 111 mg/dl White Blood Count 6.20 K/uL Red Blood Count 4.03 M/uL Hemoglobin 11.1 g/dL Hematocrit 37.3 % Mean Corpuscular Volume 92.6 fL Mean Corpuscular Hemoglobin 27.5 pg Mean Corpuscular Hemoglobin Concent 29.8 g/dl Platelet Count 176 K/uL Mean Platelet Volume 8.9 fL Neutrophils (%) (Auto) 69.8 % Lymphocytes (%) (Auto) 16.8 % Monocytes (%) (Auto) 10.5 % Eosinophils (%) (Auto) 2.1 % Basophils (%) (Auto) 0.3 % Neutrophils # (Auto) 4.33 K/uL Lymphocytes # (Auto) 1.04 K/uL Monocytes # (Auto) 0.65 K/uL Eosinophils # (Auto) 0.13 K/uL Basophils # (Auto) 0.02 K/uL RDW Standard Deviation 46.9 fL RDW Coefficient of Variation 13.7 % Immature Granulocyte % (Auto) 0.5 % Immature Granulocyte # (Auto) 0.03 K/uL Sodium Level 143 mmol/L Potassium Level mmol/L Chloride Level 109 mmol/L Carbon Dioxide Level 30 mmol/L Anion Gap 4.0 mmol/L Blood Urea Nitrogen 16 mg/dl Creatinine 1.90 mg/dl Est Creatinine Clear Calc Drug Dose 35.4 ml/min Estimated GFR () 37.2 Estimated GFR (Non- 32.1 BUN/Creatinine Ratio 8.4 Random Glucose 118 mg/dl Calcium Level 8.6 mg/dl Magnesium Level mg/dl Test 11/03/16 07:05 11/03/16 08:27 Bedside Glucose 119 mg/dl Potassium Level 4.5 mmol/L Magnesium Level 1.7 mg/dl Problem List Medical Problems: (1) Altered mental status Status: Acute (2) Altered mental status Status: Acute (3) Altered mental status Status: Acute (4) Change in mental status Status: Acute (5) Confusion Status: Acute (6) Dehydration Status: Acute (7) Failure of outpatient treatment Status: Acute (8) Penile pain Status: Acute (9) TIA (transient ischemic attack) Status: Acute (10) UTI (urinary tract infection) Status: Acute (11) Weakness Status: Acute (12) Weakness Status: Acute Past History arthritis, BPH, cancer - skin (basal cell carcinoma), congestive heart failure, COPD, coronary artery disease, depression, diabetes, GERD, heart disease, high cholesterol, hypertension, kidney stones, pneumonia, other (esophageal stricture , AV block, ischemic cardiomyopathy, obstructive sleep apnea, pulmonary nodule) Past Surgical History: angioplasty with stent, cholecystectomy, orthopedic surgery (hand surgery), pacemaker, sinus surgery, TKR, other (cataract surgery, thoracentesis) Family History Cardiac disorder FATHER BROTHER SISTER Diabetes mellitus BROTHER SISTER Hypertension FATHER SISTER Social History Hx Tobacco Use In Past Year?: No Smoking: non-smoker Alcohol: no current use Marital status: Housing status: lives with family Occupation status: retired Immunizations History of Influenza Vaccine: Yes Influenza Vaccine Date: Feb 09, 2015 History of Tetanus Vaccine?: Yes Tetanus Immunization Date: Jan 30, 2008 History of Pneumococcal: Yes Pneumococcal Date: Sep 16, 2014 History of MDRO No Allergies Coded Allergies: Penicillins (Verified Allergy, Mild, RASH, 11/01/16) Clindamycin (Verified Allergy, Unknown, UNKNOWN, 11/01/16) Mirabegron (Verified Adverse Reaction, Severe, DELIRIUM, 11/01/16) Confusion, slurred speech Morphine (Verified Adverse Reaction, Intermediate, mental status change, ) Oxycodone (Verified Adverse Reaction, Mild, CONFUSION, 11/01/16) Medications Home Medications: Home Meds and Scripts Medications Dose Route/Sig Max Daily Dose Days Date Category Dose Instructions Micro-K Ext Rel (Potassium Chloride) 10 Meq Capcr 10 Meq PO DAILY 11/01/16 Rx Lasix (Furosemide) 20 Mg Tab 20 Mg PO DAILY 11/01/16 Rx Glipizide Er (Glipizide) 5 Mg Tab 5 Mg PO DAILY 10/13/16 Rx Qc Stool Softener Plus La (Sennosides-Docusate Sodium) 1 Tab Tab 2 Tabs PO HS 10/10/16 Reported Ketoconazole 60 Appln/120 Ml Sham 1 Appln TOP UD 10/10/16 Reported APPLY TOPICALLY TO AFFECTED AREA EVERY 3 DAYS. MASSAGE INTO SCALP AND FACE, RINSE AFTER 5 MINUTES. DO 3 TIMES WEEKLY. Ketoconazole 45 Appln/15 Gm Cr 1 Appln TOP DAILY PRN 10/10/16 Reported Diclofenac Sodium (Diclofenac Sodium (Topical)) 1 % Gel 2 Gm TOP BID PRN 10/10/16 Reported Randa (Fexofenadine Hcl) 180 Mg Tab 180 Mg PO DAILY PRN 10/10/16 Reported Aspirin 81 Mg Tab 81 Mg PO DAILY 10/10/16 Reported Neurontin (Gabapentin) 100 Mg Cap 100 Mg PO HS 10/10/16 Reported Protonix (Pantoprazole Sodium) 40 Mg Tab 40 Mg PO DAILY 10/10/16 Reported Toprol Xl (Metoprolol Succinate) 50 Mg Tabcr 50 Mg PO DAILY 10/10/16 Reported Vitamin D3 (Cholecalciferol) 1,000 Unit Tab 2,000 Units PO DAILY 04/11/16 Reported Finasteride 5 Mg Tab 5 Mg PO DAILY 04/11/16 Reported Simvastatin 20 Mg Tab 20 Mg PO HS 04/11/16 Reported Isosorbide Mononitrate ER (Isosorbide Mononitrate) 30 Mg Tabcr 30 Mg PO QAM 04/11/16 Reported Tamsulosin HCl 0.4 Mg Cap 0.4 Mg PO HS 04/11/16 Reported Oxygen Gas 3 Liters NA UD 11/19/15 Reported HS and PRN activity Elmiron (Pentosan Polysulfate Sodium) 100 Mg Cap 100 Mg PO BID 11/19/15 Reported Levalbuterol HCl (Levalbuterol) 1.25 Mg/3 Ml Nebu 1 Vial INH 2-3XDAILY PRN 07/14/15 Reported Atrovent 0.02% Soln (Ipratropium [place]) 2.5 Ml Nebu 2.5 Ml NEB QID PRN 06/26/15 Reported Saw [place] (Saw [place] (Serenoa Repens)) 500 Mg Cap 1,000 Mg PO BID 01/05/15 Reported Flonase Allergy Relief (Fluticasone Propionate (Nasal)) 50 Mcg/Act Spr 2 Sprays BRITTON DAILY PRN 01/05/15 Reported Vitamin B-12 (Cyanocobalamin) 1,000 Mcg Tab 1,000 Mcg PO DAILY 07/12/12 Reported Inpatient Medications: Current Inpatient Medications Medications (Trade) Dose Ordered Sig/Tonia Route Start Time Stop Time Status Last Admin Dose Admin Acetaminophen (Tylenol Tab) 650 mg Q4H PRN PO 11/01/16 20:00 12/01/16 19:59 Al Hydrox/Mg Hydrox/Simethicone (Maalox Max Susp) 15 ml Q4H PRN PO 11/01/16 20:00 12/01/16 19:59 Magnesium Hydroxide (Milk Of Magnesia Susp) 30 ml Q6H PRN PO 11/01/16 20:00 12/01/16 19:59 Ondansetron HCl (Zofran Inj) 4 mg Q6H PRN IV 11/01/16 20:00 12/01/16 19:59 Aspirin (Ecotrin Tab) 81 mg DAILY PO 11/02/16 09:00 12/02/16 08:59 11/03/16 07:35 81 MG Cholecalciferol (Vitamin D Tab) 2,000 inter.unit DAILY PO 11/02/16 09:00 12/02/16 08:59 11/03/16 07:36 2,000 INTER.UNIT Cyanocobalamin (Vitamin B-12 Tab) 1,000 mcg DAILY PO 11/02/16 09:00 12/02/16 08:59 11/03/16 07:35 1,000 MCG Diclofenac Sodium (Voltaren 1% Top Gel) 1 appln BID PRN EXT 11/01/16 20:00 12/01/16 19:59 Fexofenadine HCl (Randa Tab) 180 mg DAILY PRN PO 11/01/16 20:00 12/01/16 19:59 Finasteride (Proscar Tab) 5 mg DAILY PO 11/02/16 09:00 12/02/16 08:59 11/03/16 07:36 5 MG Fluticasone Propionate (Flonase Nasal [place]) 2 sprays DAILY PRN BRITTON 11/01/16 20:00 12/01/16 19:59 Gabapentin (Neurontin Cap) 100 mg HS PO 11/01/16 21:00 12/01/16 20:59 11/02/16 20:23 100 MG Ipratropium [place] (Atrovent 0.02% 0.5MG/2.5ML Neb) 0.5 mg QID PRN INH 11/01/16 20:00 12/01/16 19:59 11/02/16 18:00 0.5 MG Isosorbide Mononitrate (Imdur Ext Rel Tab) 30 mg QAM PO 11/02/16 09:00 12/02/16 08:59 11/03/16 07:35 30 MG Ketoconazole (Nizoral 2% Crm) 1 appln DAILY EXT 11/02/16 09:00 11/12/16 08:59 11/03/16 07:37 1 APPLN Levalbuterol (Xopenex 1.25MG/ 3ML Neb) 1.25 mg Q6 PRN INH 11/01/16 20:00 12/01/16 19:59 11/02/16 18:00 1.25 MG Metoprolol Succinate (Toprol Xl Tab) 50 mg DAILY PO 11/02/16 09:00 12/02/16 08:59 11/03/16 07:35 50 MG Pantoprazole Sodium (Protonix Tab) 40 mg DAILY PO 11/02/16 09:00 12/02/16 08:59 11/03/16 07:35 40 MG Senna/Docusate Sodium (Senokot S Tab) 2 tab HS PO 11/01/16 21:00 12/01/16 20:59 11/02/16 20:24 2 TAB Simvastatin (Zocor Tab) 20 mg HS PO 11/01/16 21:00 12/01/16 20:59 11/02/16 20:24 20 MG Tamsulosin HCl (Flomax Cap) 0.4 mg HS PO 11/01/16 21:00 12/01/16 20:59 11/02/16 20:23 0.4 MG Pentosan Polysulfate Sodium (Elmiron) 100 mg BID PO 11/01/16 21:00 12/01/16 20:59 11/03/16 07:37 100 MG Ceftriaxone Sodium 1 gm/ Dextrose 50 ml @ 100 mls/hr Q24H IV 11/01/16 22:00 11/11/16 21:59 11/02/16 22:36 100 MLS/HR Haloperidol Lactate (Haldol Inj) 2.5 mg Q4 PRN IM 11/01/16 20:00 12/01/16 19:59 Sodium Chloride 1,000 ml @ 80 mls/hr [id number] IV 11/01/16 20:00 12/01/16 19:59 11/03/16 09:36 80 MLS/HR Insulin Aspart (novoLOG ASPART) SLIDING SCALE G... ACHS SC 11/01/16 21:00 12/01/16 20:59 11/03/16 08:37 1 UNITS Furosemide (Lasix Tab) 20 mg DAILY PO 11/02/16 09:00 12/02/16 08:59 11/03/16 07:36 20 MG Potassium Chloride (Klor-Con M10) 10 meq DAILY PO 11/02/16 09:00 12/02/16 08:59 11/03/16 07:36 10 MEQ Glucose (Glucose 40% Gel) 15-30 GRAMS 15 GRAMS... UD PRN PO 11/01/16 22:15 12/01/16 22:14 Glucose (Glucose Chew Tab) 4-8 Tablets 4 Tabl... UD PRN PO 11/01/16 22:15 12/01/16 22:14 Dextrose (Dextrose 50% 50ML Syringe) 25-50ML OF 50% DW IV FOR... UD PRN IV 11/01/16 22:15 12/01/16 22:14 Glucagon (Glucagon Inj) 1 mg UD PRN SQ 11/01/16 22:15 12/01/16 22:14 Acetaminophen/ Hydrocodone Bitart ([place] 5/325 Tab) 1 tab Q4H PRN PO 11/02/16 11:45 11/16/16 11:44 11/03/16 07:35 1 TAB Phenazopyridine HCl (Pyridium Tab) 100 mg TID PO 11/02/16 21:00 12/02/16 20:59 11/03/16 07:37 100 MG Review of Systems Review of Systems Constitutional: No fever, No chills Eyes: No double vision Neurological: No dizzy Endocrine: No excessive thirst Gastrointestinal: + abdominal pain (diffuse lower abdominal pain ) Cardiovascular: No chest pain Respiratory: + shortness of breath (chronic) Skin: No rash Musculoskeletal: + back pain, + arthritis Male : No painful urination, No blood in urine Physical Exam Vital Signs: Vital Signs Past 12 Hours Date Time Temp Pulse Resp B/P (MAP) Pulse Ox O2 Delivery O2 Flow Rate FiO2 11/03/16 07:53 37.0 81 16 137/79 (98) 94 Nasal Cannula 3.0 11/03/16 00:02 36.9 91 20 173/70 (104) 94 Nasal Cannula 3.0 11/03/16 00:00 Nasal Cannula 3.0 Physical Exam: General Appearance: no apparent distress Eyes: bilateral eyes normal inspection ENT: hearing grossly normal Neck: no JVD Respiratory/Chest: no respiratory distress, no accessory muscle use Cardiovascular: no JVD Gastrointestinal: Abdomen: RLQ tenderness, LLQ tenderness Extremities: normal inspection Neurologic/Psychiatric: alert, normal mood/affect, oriented x 3 Skin: normal color Assessment & Plan Assessment & Plan A/P: testicular pain, right hydrocele, abdominal pain, hx of stones, hx of chronic prostatitis and bladder pain Pt with complicated hx. Primarily with c/o testicular and perineal pain. Hydrocele noted on exam today. + tender bilateral testicles and scrotum limiting my exam today. No erythema or crepitus noted. Will check a KUB to r/o stone. UC&S pending. Continue IV abx pending senstivities. Will check bladder scans qshift. Differential dx includes orchitis, epididymitis, prostatitis, UTI, interstitial cystitis, and nephrolithiasis. I would first recommend tx with IV abx and awaiting culture results to r/o UTI. Will also obtain urology records from [place] to review. May need repeat cysto pending previous OR findings. If no improvement with IV abx and stone ruled out, will need to more aggressively manage the possibility of IC and orchitis. This may include a pain management consult, PT, cord block, B&O suppositories, and other therapies used for IC. Would avoid the use of hydroxyzine or amitriptyline considering his confusion and dementia. May want to consider adding Lyrica or gabapentin to see if his pain improves as well. The pt has already failed Myrbetriq, antichoinergics, and rescue treatments. Uncertain if botox or hydrodistention would be effective in his case. May also consider hydrocelectomy, but I think this is less likely to provide him improvement. Would continue Pyridium, finasteride, and Flomax for now. Pt may be able to bring in his Elmiron from home to continue as this does not appear to be on formulary. Thanks for the consult. Will continue to follow along with primary service.
--- NOTE | 2016-11-03 11:23 | DIAGNOSTIC IMAGING REPORT ---
KUB CLINICAL HISTORY: hx of nephrolithiasis, abdominal pain COMPARISON STUDY: 09/19/2015 FINDINGS: There are surgical clips within the right upper quadrant consistent with a prior cholecystectomy. 2 calcifications project over the lower pole the right kidney the largest of which measures 2.5 mm. 2 calcifications project over the midpole the left kidney the largest of which measures 2.5 mm. There is no pathologic bowel dilatation. There are multiple nonspecific pelvic basin calcifications. Degenerative changes are present within the spine. IMPRESSION: 1. Bilateral nephrolithiasis 2. No evidence of pathologic bowel dilatation Electronically signed by: Lazarus Abbott M.D. 11/03/2016 11:22 AM Dictated Date/Time: 11/03/2016 11:21 AM
[2016-11-03 12:44] VITALS: PULSE 86; O2SAT 94
[2016-11-03] MEDS: LEVALBUTEROL 1.25MG/3ML NEB INH PRN (12:44)
[2016-11-03] MEDS: IPRATROPIUM BROMIDE NEB SOLN 0.02% 2.5 ML VIAL INH PRN (12:44)
--- NOTE | 2016-11-03 12:50 | Pulmonology Progress Note ---
Pulmonary Progress Note Date of Service Nov 03, 2016. Attending Dr. Cantu Subjective Patient seen and examined at bedside. He denies any respiratory symptoms for complaint of scrotal pain. He denies any chest pain, cough, shortness of breath , or hemoptysis. Objective Vital signs reviewed. Patient afebrile, blood pressure ranging between 137/79- 173/70, his pulse was 81-91, respiratory rate 16-20, saturating 94% on 3 L nasal cannula. Head: normocephalic, atraumatic Skin: no lesions or rashes noted Eyes: normal inspection, EOMI, sclerae normal ENT: normal ENT inspection, pharynx normal Neck: supple, no adenopathy, trachea midline Respiratory/Chest: Good air entry bilaterally with mildly bibasilar crackles Cardiovascular: regular rate, rhythm, no edema, no murmur Abdomen / GI: normal bowel sounds, non tender, obese Back: Intact Extremities: normal inspection, normal range of motion, trace edema of bilateral lower extremities no clubbing, no cyanosis. Neurologic/Psych: no motor/sensory deficits, awake alert oriented 2 Assessment & Plan Right upper lobe pulmonary nodule COPD on long-term oxygen therapy Chronic hypoxic respiratory failure I discussed with patient at length about possible tissue diagnosis for right upper lobe enlarging pulmonary nodule. He says that he would like to follow up with [facility] as an outpatient for interval follow-up of CT chest at this time. He would like no further workup to be done as an inpatient. At this time I will signoff case. I appreciate the consult. If youve any further questions please feel free to contact me. Data Medications: Current Inpatient Medications Medications (Trade) Dose Ordered Sig/Tonia Route Start Time Stop Time Status Last Admin Dose Admin Acetaminophen (Tylenol Tab) 650 mg Q4H PRN PO 11/01/16 20:00 12/01/16 19:59 Al Hydrox/Mg Hydrox/Simethicone (Maalox Max Susp) 15 ml Q4H PRN PO 11/01/16 20:00 12/01/16 19:59 Magnesium Hydroxide (Milk Of Magnesia Susp) 30 ml Q6H PRN PO 11/01/16 20:00 12/01/16 19:59 Ondansetron HCl (Zofran Inj) 4 mg Q6H PRN IV 11/01/16 20:00 12/01/16 19:59 Aspirin (Ecotrin Tab) 81 mg DAILY PO 11/02/16 09:00 12/02/16 08:59 11/03/16 07:35 81 MG Cholecalciferol (Vitamin D Tab) 2,000 inter.unit DAILY PO 11/02/16 09:00 12/02/16 08:59 11/03/16 07:36 2,000 INTER.UNIT Cyanocobalamin (Vitamin B-12 Tab) 1,000 mcg DAILY PO 11/02/16 09:00 12/02/16 08:59 11/03/16 07:35 1,000 MCG Diclofenac Sodium (Voltaren 1% Top Gel) 1 appln BID PRN EXT 11/01/16 20:00 12/01/16 19:59 Fexofenadine HCl (Randa Tab) 180 mg DAILY PRN PO 11/01/16 20:00 12/01/16 19:59 Finasteride (Proscar Tab) 5 mg DAILY PO 11/02/16 09:00 12/02/16 08:59 11/03/16 07:36 5 MG Fluticasone Propionate (Flonase Nasal [place]) 2 sprays DAILY PRN [place]ITTON 11/01/16 20:00 12/01/16 19:59 Gabapentin (Neurontin Cap) 100 mg HS PO 11/01/16 21:00 12/01/16 20:59 11/02/16 20:23 100 MG Ipratropium [place] (Atrovent 0.02% 0.5MG/2.5ML Neb) 0.5 mg QID PRN INH 11/01/16 20:00 12/01/16 19:59 11/02/16 18:00 0.5 MG Isosorbide Mononitrate (Imdur Ext Rel Tab) 30 mg QAM PO 11/02/16 09:00 12/02/16 08:59 11/03/16 07:35 30 MG Ketoconazole (Nizoral 2% Crm) 1 appln DAILY EXT 11/02/16 09:00 11/12/16 08:59 11/03/16 07:37 1 APPLN Levalbuterol (Xopenex 1.25MG/ 3ML Neb) 1.25 mg Q6 PRN INH 11/01/16 20:00 12/01/16 19:59 11/02/16 18:00 1.25 MG Metoprolol Succinate (Toprol Xl Tab) 50 mg DAILY PO 11/02/16 09:00 12/02/16 08:59 11/03/16 07:35 50 MG Pantoprazole Sodium (Protonix Tab) 40 mg DAILY PO 11/02/16 09:00 12/02/16 08:59 11/03/16 07:35 40 MG Senna/Docusate Sodium (Senokot S Tab) 2 tab HS PO 11/01/16 21:00 12/01/16 20:59 11/02/16 20:24 2 TAB Simvastatin (Zocor Tab) 20 mg HS PO 11/01/16 21:00 12/01/16 20:59 11/02/16 20:24 20 MG Tamsulosin HCl (Flomax Cap) 0.4 mg HS PO 11/01/16 21:00 12/01/16 20:59 11/02/16 20:23 0.4 MG Pentosan Polysulfate Sodium (Elmiron) 100 mg BID PO 11/01/16 21:00 12/01/16 20:59 11/03/16 07:37 100 MG Ceftriaxone Sodium 1 gm/ Dextrose 50 ml @ 100 mls/hr Q24H IV 11/01/16 22:00 11/11/16 21:59 11/02/16 22:36 100 MLS/HR Haloperidol Lactate (Haldol Inj) 2.5 mg Q4 PRN IM 11/01/16 20:00 12/01/16 19:59 Sodium Chloride 1,000 ml @ 80 mls/hr [id number] IV 11/01/16 20:00 12/01/16 19:59 11/03/16 09:36 80 MLS/HR Insulin Aspart (novoLOG ASPART) SLIDING SCALE G... ACHS SC 11/01/16 21:00 12/01/16 20:59 11/03/16 12:29 2 UNITS Furosemide (Lasix Tab) 20 mg DAILY PO 11/02/16 09:00 12/02/16 08:59 11/03/16 07:36 20 MG Potassium Chloride (Klor-Con M10) 10 meq DAILY PO 11/02/16 09:00 12/02/16 08:59 11/03/16 07:36 10 MEQ Glucose (Glucose 40% Gel) 15-30 GRAMS 15 GRAMS... UD PRN PO 11/01/16 22:15 12/01/16 22:14 Glucose (Glucose Chew Tab) 4-8 Tablets 4 Tabl... UD PRN PO 11/01/16 22:15 12/01/16 22:14 Dextrose (Dextrose 50% 50ML Syringe) 25-50ML OF 50% DW IV FOR... UD PRN IV 11/01/16 22:15 12/01/16 22:14 Glucagon (Glucagon Inj) 1 mg UD PRN SQ 11/01/16 22:15 12/01/16 22:14 Acetaminophen/ Hydrocodone Bitart ([place] 5/325 Tab) 1 tab Q4H PRN PO 11/02/16 11:45 11/16/16 11:44 11/03/16 07:35 1 TAB Phenazopyridine HCl (Pyridium Tab) 100 mg TID PO 11/02/16 21:00 12/02/16 20:59 11/03/16 07:37 100 MG Magnesium Oxide (Mag-Ox Tab) 400 mg BID PO 11/03/16 21:00 12/03/16 20:59 Vital Signs: Date Time Temp Pulse Resp B/P (MAP) Pulse Ox O2 Delivery O2 Flow Rate FiO2 11/03/16 08:00 Nasal Cannula 3.0 11/03/16 07:53 37.0 81 16 137/79 (98) 94 Nasal Cannula 3.0 11/03/16 00:02 36.9 91 20 173/70 (104) 94 Nasal Cannula 3.0 11/03/16 00:00 Nasal Cannula 3.0 11/02/16 18:02 95 20 92 Nasal Cannula 3.0 11/02/16 16:12 36.6 74 18 127/63 (84) 94 Room Air 11/02/16 16:10 90 Room Air 3.0 91 Laboratory Results: Last 24 Hours Test 11/02/16 16:58 11/02/16 20:55 11/03/16 06:22 11/03/16 07:05 Bedside Glucose 84 mg/dl 111 mg/dl 119 mg/dl White Blood Count 6.20 K/uL Red Blood Count 4.03 M/uL Hemoglobin 11.1 g/dL Hematocrit 37.3 % Mean Corpuscular Volume 92.6 fL Mean Corpuscular Hemoglobin 27.5 pg Mean Corpuscular Hemoglobin Concent 29.8 g/dl Platelet Count 176 K/uL Mean Platelet Volume 8.9 fL Neutrophils (%) (Auto) 69.8 % Lymphocytes (%) (Auto) 16.8 % Monocytes (%) (Auto) 10.5 % Eosinophils (%) (Auto) 2.1 % Basophils (%) (Auto) 0.3 % Neutrophils # (Auto) 4.33 K/uL Lymphocytes # (Auto) 1.04 K/uL Monocytes # (Auto) 0.65 K/uL Eosinophils # (Auto) 0.13 K/uL Basophils # (Auto) 0.02 K/uL RDW Standard Deviation 46.9 fL RDW Coefficient of Variation 13.7 % Immature Granulocyte % (Auto) 0.5 % Immature Granulocyte # (Auto) 0.03 K/uL Sodium Level 143 mmol/L Potassium Level mmol/L Chloride Level 109 mmol/L Carbon Dioxide Level 30 mmol/L Anion Gap 4.0 mmol/L Blood Urea Nitrogen 16 mg/dl Creatinine 1.90 mg/dl Est Creatinine Clear Calc Drug Dose 35.4 ml/min Estimated GFR () 37.2 Estimated GFR (Non- 32.1 BUN/Creatinine Ratio 8.4 Random Glucose 118 mg/dl Calcium Level 8.6 mg/dl Magnesium Level mg/dl Test 11/03/16 08:27 11/03/16 11:23 Potassium Level 4.5 mmol/L Magnesium Level 1.7 mg/dl Bedside Glucose 139 mg/dl
--- NOTE | 2016-11-03 13:17 | Progress Note ---
Internal Med Progress Note Date of Service: Nov 03, 2016. Provider Documentation: SUBJECTIVE: Patient is doing better. Mental status is near his baseline. Awake, alert, oriented x 2. Does have chronic dysuria, bladder spasms- unchanged No fever, chills, abdominal pain. OBJECTIVE: Vital Signs-as noted below Exam: General-AAOX2, no distress Neck-Supple Lungs-AEBE, no wheezing, rales Heart-S1, S2 normal Abdomen- Soft, non tender, non distended, BS present Extremities-No edema Lab data as noted below. ASSESSMENT & PLAN: GRANT ON CKD III Baseline around 1.4,-1.5 came with creatinine of 1.8 -IV Fluids -Monitor CHRONIC URINARY SYMPTOMS Has chronic dysuria, incontinence, overactive bladder, BPH. Tried multiple medications in past (Myrbetriq, anticholinergics, rescue treatments) but failed to relieve his chronic symptoms. Went for a second opinion to [facility] -D/D Interstitial cystitis, prostatitis. With testicular pain - Orchitis, epididymitis considered -Cystoscopy 09/27/16 showed very small bladder capacity and ureteral orifices were difficult to visualize. cytology was benign - plan for cystoscopy in OR in future -On finasteride, Flomax, Elmiron, pyridium,. -Per urology, rule out UT/Stone. If no improvement with antibiotics, will consider more aggressive management of possible IC/Orchitis likely pain mx, PT, Cord block, B & O suppositories etc. ALTERED MENTAL STATUS : Resolved Near baseline now -Patient likely has baseline cognitive decline/possible early dementia which is progressively worsening in setting of chronic symptoms of dysuria. UTI possibly contributing. -On IV Rocephin (Day 2) -Urine culture to follow up ABNORMAL CXR CXR shows. 2.1 cm right lung nodule which corresponds to the upper lobe nodule shown on prior chest CT. This is highly suggestive of bronchogenic carcinoma. Lesion has grown from 1.4 to 2.1 cm. -Pulmonary was consulted. However, patient is already being followed up outpatient by Dr Johnson and plan is for repeat CT scan in future. Updated about these results. HYDROCELE, LEFT -Need to follow up outpatient CAD stable On aspirin, statin, beta imko, nitrates CHRONIC SYSTOLIC CHF EF 50-54% o echo done in 2016 -on lasix -on gentle fluids -will monitor for volume overload. COPD Not in exacerbation -Continue chronic O2 3 liters NC HS and PRN exertion -PRN nebs DM TYPE 2 -Holding glipizide -Insulin sliding scale DEPRESSION -Continue sertraline VTE PROPHYLAXIS -No anticoagulant due to recent hematuria -SCD's CODE STATUS -Full code only if there is chance of recover as per my discussion with the . DISPOSITION PT/OT ordered Refuses any kind of placement Updated yesterday over phone. Frustrated about his chronic symptoms and difficult to take care of him with her advancing age. Vital Signs: Date Time Temp Pulse Resp B/P (MAP) Pulse Ox O2 Delivery O2 Flow Rate FiO2 11/03/16 12:44 86 20 94 Nasal Cannula 3.0 11/03/16 08:00 Nasal Cannula 3.0 11/03/16 07:53 37.0 81 16 137/79 (98) 94 Nasal Cannula 3.0 11/03/16 00:02 36.9 91 20 173/70 (104) 94 Nasal Cannula 3.0 11/03/16 00:00 Nasal Cannula 3.0 11/02/16 18:02 95 20 92 Nasal Cannula 3.0 11/02/16 16:12 36.6 74 18 127/63 (84) 94 Room Air 11/02/16 16:10 90 Room Air 3.0 91 Lab Results: Results Past 24 Hours Test 11/02/16 16:58 11/02/16 20:55 11/03/16 06:22 11/03/16 07:05 Range/Units Bedside Glucose 84 111 119 70-99 mg/dl White Blood Count 6.20 4.8-10.8 K/uL Red Blood Count 4.03 4.7-6.1 M/uL Hemoglobin 11.1 14.0-18.0 g/dL Hematocrit 37.3 42-52 % Mean Corpuscular Volume 92.6 80-100 fL Mean Corpuscular Hemoglobin 27.5 25-34 pg Mean Corpuscular Hemoglobin Concent 29.8 32-36 g/dl Platelet Count 176 130-400 K/uL Mean Platelet Volume 8.9 7.4-10.4 fL Neutrophils (%) (Auto) 69.8 % Lymphocytes (%) (Auto) 16.8 % Monocytes (%) (Auto) 10.5 % Eosinophils (%) (Auto) 2.1 % Basophils (%) (Auto) 0.3 % Neutrophils # (Auto) 4.33 1.4-6.5 K/uL Lymphocytes # (Auto) 1.04 1.2-3.4 K/uL Monocytes # (Auto) 0.65 0.11-0.59 K/uL Eosinophils # (Auto) 0.13 0-0.5 K/uL Basophils # (Auto) 0.02 0-0.2 K/uL RDW Standard Deviation 46.9 36.4-46.3 fL RDW Coefficient of Variation 13.7 11.5-14.5 % Immature Granulocyte % (Auto) 0.5 % Immature Granulocyte # (Auto) 0.03 0.00-0.02 K/uL Sodium Level 143 136-145 mmol/L Potassium Level 3.5-5.1 mmol/L Chloride Level 109 98-107 mmol/L Carbon Dioxide Level 30 21-32 mmol/L Anion Gap 4.0 3-11 mmol/L Blood Urea Nitrogen 16 7-18 mg/dl Creatinine 1.90 0.60-1.40 mg/dl Est Creatinine Clear Calc Drug Dose 35.4 ml/min Estimated GFR () 37.2 Estimated GFR (Non- 32.1 BUN/Creatinine Ratio 8.4 10-20 Random Glucose 118 70-99 mg/dl Calcium Level 8.6 8.5-10.1 mg/dl Magnesium Level 1.8-2.4 mg/dl Test 11/03/16 08:27 11/03/16 11:23 Range/Units Potassium Level 4.5 3.5-5.1 mmol/L Magnesium Level 1.7 1.8-2.4 mg/dl Bedside Glucose 139 70-99 mg/dl Microbiology Results 11/02/16 Urine Culture - Preliminary, Resulted PIN-POINT GROWTH PRESENT, REINCUBATING.
[2016-11-03] MEDS ORDERED: BELLADONNA/OPIUM SUPP 60 MG SUPP PR PRN (14:45)
[2016-11-03] MEDS: TAMSULOSIN HCL 0.4 MG CAP PO SCH (21:46)
[2016-11-03] MEDS: MAGNESIUM OXIDE 400 MG TAB PO SCH (21:46)
[2016-11-03] MEDS: GABAPENTIN 100 MG CAP PO SCH (21:47)
[2016-11-03] MEDS: DOCUSATE SODIUM/SENNA 50/8.6MG TAB PO SCH (21:48)
[2016-11-03] MEDS: SIMVASTATIN 20 MG TAB PO SCH (21:48)
[2016-11-03] MEDS: CEFTRIAXONE SOD INJ 1 GM in DEXTROSE 5% ADD-VANTAGE 50ML 50 ML IV SCH (21:51)
[2016-11-03 23:10] VITALS: BP 150/76; PULSE 88; TEMP 36.7; O2SAT 96
[2016-11-04] MEDS: HYDROCODONE/ACETAMOPHEN 5/325MG TAB PO PRN ×2 (03:24→20:25)
[2016-11-04] MEDS: CHOLECALCIFEROL 1000 INTER.UNIT TAB PO SCH (07:39)
[2016-11-04] MEDS: PANTOprazole SOD 40 MG TAB PO SCH (07:39)
[2016-11-04] MEDS: MAGNESIUM OXIDE 400 MG TAB PO SCH ×3 (07:39→20:23)
[2016-11-04] MEDS: ASPIRIN 81 MG ECTAB PO SCH (07:39)
[2016-11-04] MEDS: CYANOCOBALAMIN 500 MCG TAB (VIT B-12) PO SCH (07:39)
[2016-11-04] MEDS: POTASSIUM CHLORIDE 10 MEQ TABCR PO SCH (07:40)
[2016-11-04] MEDS: FINASTERIDE 5 MG TAB PO SCH (07:40)
[2016-11-04] MEDS: PHENAZOPYRIDINE HCL 200 MG TAB PO SCH ×3 (07:41→20:26)
[2016-11-04] MEDS: PENTOSAN POLYSULFATE SODIUM 100 MG CAP PO SCH ×2 (07:42→20:23)
[2016-11-04] MEDS: KETOCONAZOLE 2% CR 15 GM TUBE EXT SCH (07:42)
[2016-11-04] MEDS: ISOSORBIDE MONONITRATE 30 MG TABCR PO SCH (07:45)
[2016-11-04] MEDS: METOPROLOL SUCC 50MG EXT REL TAB PO SCH (07:45)
[2016-11-04 07:46] VITALS: BP 113/69; PULSE 76; TEMP 36.8; O2SAT 96
[2016-11-04] MEDS: FUROSEMIDE 20 MG TAB PO SCH (07:46)
[2016-11-04] MEDS: INSULIN ASPART 100 UNITS/ML 3 ML PEN SC SCH ×5 (07:52→20:51)
[2016-11-04 07:58] LABS: BASO % 0.3 %; BASO ABS # 0.02 K/uL (0-0.2); COMPLETE YES; EOS % 2.7 %; HEMATOCRIT 34.4 % (42-52); IG% 0.5 %; LYMPH % 19.6 %; LYMPH ABS # 1.16 K/uL (1.2-3.4); MEAN CELL VOLUME 91.7 fL (80-100); MEAN CORPUSCULAR HGB CONC 30.5 g/dl (32-36); MEAN PLATELET VOLUME 9.2 fL (7.4-10.4); MONO % 12.4 %; NEUT % 64.5 %; PLATELET COUNT 166 K/uL (130-400); RED BLOOD COUNT 3.75 M/uL (4.7-6.1); WHITE BLOOD COUNT 5.91 K/uL (4.8-10.8)
[2016-11-04 08:13] LABS: BUN/CREATININE RATIO 11.1 (10-20); CREATININE 1.9 mg/dl (0.60-1.40); MAGNESIUM 1.7 mg/dl (1.8-2.4); POTASSIUM 4.2 mmol/L (3.5-5.1)
[2016-11-04] MEDS ORDERED: MAGNESIUM SULFATE 1GM / D5W 1 GM in PREMIXED IN D5W 100 ML IV SCH (10:00)
--- NOTE | 2016-11-04 10:28 | Progress Note ---
Internal Med Progress Note Date of Service: Nov 04, 2016. Provider Documentation: SUBJECTIVE: Patient is same clinically, near his baseline with chronic urinary symptoms. Mental status is near his baseline. Awake, alert, oriented x 2. Does have chronic dysuria, bladder spasms- unchanged No fever, chills, abdominal pain. OBJECTIVE: Vital Signs-as noted below Exam: General-AAOX2, no distress Neck-Supple Lungs-AEBE, no wheezing, rales Heart-S1, S2 normal Abdomen- Soft, non tender, non distended, BS present Extremities-No edema Lab data as noted below. ASSESSMENT & PLAN: GRANT ON CKD III Baseline around 1.4,-1.5 came with creatinine of 1.8 -IV Fluids - will discontinue. -Monitor CHRONIC URINARY SYMPTOMS Has chronic dysuria, incontinence, overactive bladder, BPH, small capacity urinary bladder. Tried multiple medications in past (Myrbetriq, anticholinergics , rescue treatments) but failed to relieve his chronic symptoms. [facility] -D/D Interstitial cystitis, prostatitis. With testicular pain - Orchitis, epididymitis considered. -Cystoscopy 09/27/16 showed very small bladder capacity and ureteral orifices were difficult to visualize. Cytology was benign - Plan for cystoscopy in OR in future. Was also offered cystectomy with neobladder reconstruction but he refused -On finasteride, Flomax, Elmiron, pyridium. -On IV Rocephin, but Urine cx- pin point growth-- discontinue as symptoms are chronic -Discussed with urology at length today- Nothing to offer at this point. Had discussion with patient as well. Plan is to continue to follow up with Dr Rodney and [facility] ALTERED MENTAL STATUS : Resolved Near baseline now -Patient likely has baseline cognitive decline/possible early dementia which is progressively worsening in setting of chronic symptoms of dysuria. -Urine culture - pin point culture. ABNORMAL CXR CXR shows. 2.1 cm right lung nodule which corresponds to the upper lobe nodule shown on prior chest CT. This is highly suggestive of bronchogenic carcinoma. Lesion has grown from 1.4 to 2.1 cm. -Pulmonary was consulted. However, patient is already being followed up outpatient by Dr Johnson and plan is for repeat CT scan in future. Updated about these results. HYDROCELE, LEFT -Need to follow up outpatient CAD stable On aspirin, statin, beta miko, nitrates CHRONIC SYSTOLIC CHF EF 50-54% o echo done in 2016 -on lasix -on gentle fluids -will monitor for volume overload. COPD Not in exacerbation -Continue chronic O2 3 liters NC HS and PRN exertion -PRN nebs DM TYPE 2 -Holding glipizide -Insulin sliding scale DEPRESSION -Continue sertraline VTE PROPHYLAXIS -No anticoagulant due to recent hematuria -SCD's CODE STATUS -Full code only if there is chance of recover as per my discussion with the . DISPOSITION PT/OT ordered Refuses any kind of placement, but today was willing to consider rehab. Will discuss with today about discharge planing Likely discharge in AM Vital Signs: Date Time Temp Pulse Resp B/P (MAP) Pulse Ox O2 Delivery O2 Flow Rate FiO2 11/04/16 08:00 Nasal Cannula 3.0 11/04/16 07:46 36.8 76 20 113/69 (84) 96 3.0 11/04/16 00:00 Nasal Cannula 3.0 11/03/16 23:10 36.7 88 20 150/76 (100) 96 Nasal Cannula 3.0 11/03/16 16:30 Nasal Cannula 3.0 11/03/16 12:44 86 20 94 Nasal Cannula 3.0 Lab Results: Results Past 24 Hours Test 11/03/16 11:23 11/03/16 16:31 11/03/16 20:20 11/04/16 07:07 Range/Units Bedside Glucose 139 194 167 70-99 mg/dl White Blood Count 5.91 4.8-10.8 K/uL Red Blood Count 3.75 4.7-6.1 M/uL Hemoglobin 10.5 14.0-18.0 g/dL Hematocrit 34.4 42-52 % Mean Corpuscular Volume 91.7 80-100 fL Mean Corpuscular Hemoglobin 28.0 25-34 pg Mean Corpuscular Hemoglobin Concent 30.5 32-36 g/dl Platelet Count 166 130-400 K/uL Mean Platelet Volume 9.2 7.4-10.4 fL Neutrophils (%) (Auto) 64.5 % Lymphocytes (%) (Auto) 19.6 % Monocytes (%) (Auto) 12.4 % Eosinophils (%) (Auto) 2.7 % Basophils (%) (Auto) 0.3 % Neutrophils # (Auto) 3.81 1.4-6.5 K/uL Lymphocytes # (Auto) 1.16 1.2-3.4 K/uL Monocytes # (Auto) 0.73 0.11-0.59 K/uL Eosinophils # (Auto) 0.16 0-0.5 K/uL Basophils # (Auto) 0.02 0-0.2 K/uL RDW Standard Deviation 45.9 36.4-46.3 fL RDW Coefficient of Variation 13.8 11.5-14.5 % Immature Granulocyte % (Auto) 0.5 % Immature Granulocyte # (Auto) 0.03 0.00-0.02 K/uL Sodium Level 140 136-145 mmol/L Potassium Level 4.2 3.5-5.1 mmol/L Chloride Level 108 98-107 mmol/L Carbon Dioxide Level 28 21-32 mmol/L Anion Gap 4.0 3-11 mmol/L Blood Urea Nitrogen 21 7-18 mg/dl Creatinine 1.90 0.60-1.40 mg/dl Est Creatinine Clear Calc Drug Dose 35.4 ml/min Estimated GFR () 37.2 Estimated GFR (Non- 32.1 BUN/Creatinine Ratio 11.1 10-20 Random Glucose 130 70-99 mg/dl Calcium Level 8.0 8.5-10.1 mg/dl Magnesium Level 1.7 1.8-2.4 mg/dl Test 11/04/16 07:31 Range/Units Bedside Glucose 125 70-99 mg/dl
[2016-11-04 11:00] VITALS: O2SAT 88
--- NOTE | 2016-11-04 11:09 | Progress Note ---
Subjective Date of Service: Nov 04, 2016. Subjective Pt evaluation today including: conversation w/ patient, chart review, lab review, review of studies 81 year old male well known to our service for ongoing LUTS. Please see consult for full details. Reviewed studies- KUB shows small <2.5 mm stones x 2 in bilateral kidneys- these are small- no intervention needed. Bladder scanned pt personally this am- 45 ml. Creatinine remains at 1.9 White count remains normal. Reviewed records from [facility]- He had cystoscopy in September 2016- revealed a pale small capacity no visible papillary tumors bladder otherwise difficult to asses- pt did not tolerate procedure well. Urodynamic studies- confirmed small capacity bladder. His 1st sensation occurred at only 7 ml with a 1st desire to void at 16 ml infusion- at this time noted detrusor overactivity and urine leak at this time. He also did not tolerate this procedure well. He was offered cysto under anesthesia to further rule out malignancy ( low suspicion) , For his symptoms he was offered cystectomy, bladder diversion. He does not wish to proceed with these at this time. CT scan revealed the pulmonary nodule has grown in size. Problem List Medical Problems: (1) Altered mental status Status: Acute (2) Altered mental status Status: Acute (3) Altered mental status Status: Acute (4) Change in mental status Status: Acute (5) Confusion Status: Acute (6) Dehydration Status: Acute (7) Failure of outpatient treatment Status: Acute (8) Penile pain Status: Acute (9) TIA (transient ischemic attack) Status: Acute (10) UTI (urinary tract infection) Status: Acute (11) Weakness Status: Acute (12) Weakness Status: Acute Review of Systems Constitutional: No fever, No chills Eyes: No worsening of vision ENT: No hearing loss Respiratory: No cough, No shortness of breath Cardiac: No chest pain Abdomen: No pain, No nausea Male : + see HPI, + dysuria, + urinary frequency, + nocturia more than once/ night Heme: No abnormal bleeding/bruising Objective Vital Signs Date Time Temp Pulse Resp B/P (MAP) Pulse Ox O2 Delivery O2 Flow Rate FiO2 11/04/16 08:00 Nasal Cannula 3.0 11/04/16 07:46 36.8 76 20 113/69 (84) 96 3.0 11/04/16 00:00 Nasal Cannula 3.0 11/03/16 23:10 36.7 88 20 150/76 (100) 96 Nasal Cannula 3.0 11/03/16 16:30 Nasal Cannula 3.0 11/03/16 12:44 86 20 94 Nasal Cannula 3.0 Physical Exam General Appearance: WD/WN, no apparent distress Eyes: normal inspection ENT: hearing grossly normal Respiratory/Chest: normal breath sounds Neurologic/Psychiatric: alert Skin: normal color Laboratory Results Test 11/01/16 15:59 11/01/16 17:50 11/03/16 06:22 11/03/16 08:27 POC Troponin I < 0.030 Urine Color ORANGE Urine Appearance TURBID Urine pH 6.0 Urine Specific [place] 1.017 Urine Protein 2+ Urine Glucose (UA) NEG Urine Ketones NEG Urine Occult Blood 3+ Urine Nitrite POS Urine Bilirubin NEG Urine Urobilinogen NEG Urine Leukocyte Esterase LARGE Urine WBC (Auto) >30 Urine RBC (Auto) 5-10 Urine Hyaline Casts (Auto) 1-5 Urine Epithelial Cells (Auto) >30 Urine Bacteria (Auto) 1+ Urine Pathogenic Casts Urine Yeast (Auto) BUDDING White Blood Count 6.20 Red Blood Count 4.03 Hemoglobin 11.1 Hematocrit 37.3 Mean Corpuscular Volume 92.6 Mean Corpuscular Hemoglobin 27.5 Mean Corpuscular Hemoglobin Concent 29.8 Platelet Count 176 Mean Platelet Volume 8.9 Neutrophils (%) (Auto) 69.8 Lymphocytes (%) (Auto) 16.8 Monocytes (%) (Auto) 10.5 Eosinophils (%) (Auto) 2.1 Basophils (%) (Auto) 0.3 Neutrophils # (Auto) 4.33 Lymphocytes # (Auto) 1.04 Monocytes # (Auto) 0.65 Eosinophils # (Auto) 0.13 Basophils # (Auto) 0.02 RDW Standard Deviation 46.9 RDW Coefficient of Variation 13.7 Immature Granulocyte % (Auto) 0.5 Immature Granulocyte # (Auto) 0.03 Sodium Level 143 Chloride Level 109 Carbon Dioxide Level 30 Anion Gap 4.0 Blood Urea Nitrogen 16 Creatinine 1.90 Est Creatinine Clear Calc Drug Dose 35.4 Estimated GFR () 37.2 Estimated GFR (Non- 32.1 BUN/Creatinine Ratio 8.4 Random Glucose 118 Calcium Level 8.6 Potassium Level 4.5 Magnesium Level 1.7 Test 11/03/16 20:20 7/21/17 07:07 11/04/16 07:31 POC Glucose 167 125 White Blood Count 5.91 Red Blood Count 3.75 Hemoglobin 10.5 Hematocrit 34.4 Mean Corpuscular Volume 91.7 Mean Corpuscular Hemoglobin 28.0 Mean Corpuscular Hemoglobin Concent 30.5 Platelet Count 166 Mean Platelet Volume 9.2 Neutrophils (%) (Auto) 64.5 Lymphocytes (%) (Auto) 19.6 Monocytes (%) (Auto) 12.4 Eosinophils (%) (Auto) 2.7 Basophils (%) (Auto) 0.3 Neutrophils # (Auto) 3.81 Lymphocytes # (Auto) 1.16 Monocytes # (Auto) 0.73 Eosinophils # (Auto) 0.16 Basophils # (Auto) 0.02 RDW Standard Deviation 45.9 RDW Coefficient of Variation 13.8 Immature Granulocyte % (Auto) 0.5 Immature Granulocyte # (Auto) 0.03 Sodium Level 140 Potassium Level 4.2 Chloride Level 108 Carbon Dioxide Level 28 Anion Gap 4.0 Blood Urea Nitrogen 21 Creatinine 1.90 Est Creatinine Clear Calc Drug Dose 35.4 Estimated GFR () 37.2 Estimated GFR (Non- 32.1 BUN/Creatinine Ratio 11.1 Random Glucose 130 Calcium Level 8.0 Magnesium Level 1.7 Current Inpatient Medications Medications (Trade) Dose Ordered Sig/Tonia Route Start Time Stop Time Status Last Admin Dose Admin Acetaminophen (Tylenol Tab) 650 mg Q4H PRN PO 11/01/16 20:00 12/01/16 19:59 Al Hydrox/Mg Hydrox/Simethicone (Maalox Max Susp) 15 ml Q4H PRN PO 11/01/16 20:00 12/01/16 19:59 Magnesium Hydroxide (Milk Of Magnesia Susp) 30 ml Q6H PRN PO 11/01/16 20:00 12/01/16 19:59 Ondansetron HCl (Zofran Inj) 4 mg Q6H PRN IV 11/01/16 20:00 12/01/16 19:59 Aspirin (Ecotrin Tab) 81 mg DAILY PO 11/02/16 09:00 12/02/16 08:59 11/04/16 07:39 81 MG Cholecalciferol (Vitamin D Tab) 2,000 inter.unit DAILY PO 11/02/16 09:00 12/02/16 08:59 11/04/16 07:39 2,000 INTER.UNIT Cyanocobalamin (Vitamin B-12 Tab) 1,000 mcg DAILY PO 11/02/16 09:00 12/02/16 08:59 11/04/16 07:39 1,000 MCG Diclofenac Sodium (Voltaren 1% Top Gel) 1 appln BID PRN EXT 11/01/16 20:00 12/01/16 19:59 Fexofenadine HCl (Randa Tab) 180 mg DAILY PRN PO 11/01/16 20:00 12/01/16 19:59 Finasteride (Proscar Tab) 5 mg DAILY PO 11/02/16 09:00 12/02/16 08:59 11/04/16 07:40 5 MG Fluticasone Propionate (Flonase Nasal [place]) 2 sprays DAILY PRN [place] 11/01/16 20:00 12/01/16 19:59 Gabapentin (Neurontin Cap) 100 mg HS PO 11/01/16 21:00 12/01/16 20:59 11/03/16 21:47 100 MG Ipratropium [place] (Atrovent 0.02% 0.5MG/2.5ML Neb) 0.5 mg QID PRN INH 11/01/16 20:00 12/01/16 19:59 11/03/16 12:44 0.5 MG Isosorbide Mononitrate (Imdur Ext Rel Tab) 30 mg QAM PO 11/02/16 09:00 12/02/16 08:59 11/04/16 07:45 30 MG Ketoconazole (Nizoral 2% Crm) 1 appln DAILY EXT 11/02/16 09:00 11/12/16 08:59 11/04/16 07:42 1 APPLN Levalbuterol (Xopenex 1.25MG/ 3ML Neb) 1.25 mg Q6 PRN INH 11/01/16 20:00 12/01/16 19:59 11/03/16 12:44 1.25 MG Metoprolol Succinate (Toprol Xl Tab) 50 mg DAILY PO 11/02/16 09:00 12/02/16 08:59 11/04/16 07:45 50 MG Pantoprazole Sodium (Protonix Tab) 40 mg DAILY PO 11/02/16 09:00 12/02/16 08:59 11/04/16 07:39 40 MG Senna/Docusate Sodium (Senokot S Tab) 2 tab HS PO 11/01/16 21:00 12/01/16 20:59 11/03/16 21:48 2 TAB Simvastatin (Zocor Tab) 20 mg HS PO 11/01/16 21:00 12/01/16 20:59 11/03/16 21:48 20 MG Tamsulosin HCl (Flomax Cap) 0.4 mg HS PO 11/01/16 21:00 12/01/16 20:59 11/03/16 21:46 0.4 MG Pentosan Polysulfate Sodium (Elmiron) 100 mg BID PO 11/01/16 21:00 12/01/16 20:59 11/04/16 07:42 100 MG Haloperidol Lactate (Haldol Inj) 2.5 mg Q4 PRN IM 11/01/16 20:00 12/01/16 19:59 Insulin Aspart (novoLOG ASPART) SLIDING SCALE G... ACHS SC 11/01/16 21:00 12/01/16 20:59 11/04/16 07:52 3 UNITS Furosemide (Lasix Tab) 20 mg DAILY PO 11/02/16 09:00 12/02/16 08:59 11/04/16 07:46 20 MG Potassium Chloride (Klor-Con M10) 10 meq DAILY PO 11/02/16 09:00 12/02/16 08:59 11/04/16 07:40 10 MEQ Glucose (Glucose 40% Gel) 15-30 GRAMS 15 GRAMS... UD PRN PO 11/01/16 22:15 12/01/16 22:14 Glucose (Glucose Chew Tab) 4-8 Tablets 4 Tabl... UD PRN PO 11/01/16 22:15 12/01/16 22:14 Dextrose (Dextrose 50% 50ML Syringe) 25-50ML OF 50% DW IV FOR... UD PRN IV 11/01/16 22:15 12/01/16 22:14 Glucagon (Glucagon Inj) 1 mg UD PRN SQ 11/01/16 22:15 12/01/16 22:14 Acetaminophen/ Hydrocodone Bitart ([place] 5/325 Tab) 1 tab Q4H PRN PO 11/02/16 11:45 11/16/16 11:44 11/04/16 03:24 1 TAB Phenazopyridine HCl (Pyridium Tab) 100 mg TID PO 11/02/16 21:00 12/02/16 20:59 11/04/16 07:41 100 MG Magnesium Oxide (Mag-Ox Tab) 400 mg BID PO 11/03/16 21:00 12/03/16 20:59 11/04/16 07:39 400 MG Belladonna/Opium (B & O Adult Supp) 60 mg Q6 PRN [place] 11/03/16 14:45 11/17/16 14:44 Magnesium Oxide (Mag-Ox Tab) 400 mg BID PO 11/04/16 10:30 12/04/16 10:29 Magnesium Sulfate 1 gm/Prmx 100 ml @ 100 mls/hr TODAY@1000 IV 11/04/16 10:00 11/04/16 13:00 Last 24 Hours Test 11/03/16 11:23 11/03/16 16:31 11/03/16 20:20 11/04/16 07:07 Bedside Glucose 139 mg/dl 194 mg/dl 167 mg/dl White Blood Count 5.91 K/uL Red Blood Count 3.75 M/uL Hemoglobin 10.5 g/dL Hematocrit 34.4 % Mean Corpuscular Volume 91.7 fL Mean Corpuscular Hemoglobin 28.0 pg Mean Corpuscular Hemoglobin Concent 30.5 g/dl Platelet Count 166 K/uL Mean Platelet Volume 9.2 fL Neutrophils (%) (Auto) 64.5 % Lymphocytes (%) (Auto) 19.6 % Monocytes (%) (Auto) 12.4 % Eosinophils (%) (Auto) 2.7 % Basophils (%) (Auto) 0.3 % Neutrophils # (Auto) 3.81 K/uL Lymphocytes # (Auto) 1.16 K/uL Monocytes # (Auto) 0.73 K/uL Eosinophils # (Auto) 0.16 K/uL Basophils # (Auto) 0.02 K/uL RDW Standard Deviation 45.9 fL RDW Coefficient of Variation 13.8 % Immature Granulocyte % (Auto) 0.5 % Immature Granulocyte # (Auto) 0.03 K/uL Sodium Level 140 mmol/L Potassium Level 4.2 mmol/L Chloride Level 108 mmol/L Carbon Dioxide Level 28 mmol/L Anion Gap 4.0 mmol/L Blood Urea Nitrogen 21 mg/dl Creatinine 1.90 mg/dl Est Creatinine Clear Calc Drug Dose 35.4 ml/min Estimated GFR () 37.2 Estimated GFR (Non- 32.1 BUN/Creatinine Ratio 11.1 Random Glucose 130 mg/dl Calcium Level 8.0 mg/dl Magnesium Level 1.7 mg/dl Test 11/04/16 07:31 Bedside Glucose 125 mg/dl Assessment and Plan Bothersome LUTS Pt has had ongoing issues with this discomfort. We have tried multiple medications and modalities. He has not wanted to proceed with PTNS or botox. He was offered removal of his bladder at [facility]- he does not wish to pursue this at this time. He may not be good candidate with increase in size of pulmonary nodule. KUB showed no worrisome stones. Bladder scan unremarkable. Urine culture essentially negative at this time. Recommend continuing pyridium,elmiron, finasteride and flomax at home. No further recommendations for his urology issues at this time. We will treat him as outpt. Discussed above with Dr. Mcpherson. Most likely discharge pt home or rehab. No further input at this time. Please recall prn.
--- NOTE | 2016-11-04 14:25 | Medical Student: [facility] ---
Consultation Date of Consultation: Nov 04, 2016. Requesting Physician: Dr. Mcpherson Attending Physician: Dr. Mcpherson Reason for Consultation: Altered mental status and behavioral support History of Present Illness Identifying Data: Mr. Almendarez is an 81 year old man from [place], [place] where he lives with his , Bhavna Almendarez who was brought to the ER by his on for confusion and pain with urination. CC: "I am in pain and no doctors can do anything about it" HPI: Mr. Nathen Almendarez is an 81 year old man with significant PMH with BCC, CA , BPH, UTI, chronic systolic CHF, COPD, DM, GERD, DENISHA who is consulted for altered mental status and behavioral support. He reports that he is worried about an ongoing workup for hematuria, "that no doctor has been able to figure out in 3 years." He has seen several urologists in [place] and [place]. He expresses his belief that all doctors are out to order tests and make money. He was reluctant to answer many questions. Today, he states that he feels less confused than yesterday. He reports sadness , loss of interest, decreased energy, decreased ability to concentrate, decreased appetite. He denies suicidal ideations, homicidal ideations. He denies visual or auditory hallucinations. He denies a history of psychiatric illness or outpatient psychiatric treatment. He denies access to guns. He denies a family history of psychiatric illnesses. The conversation ended abruptly when he stated he "want to go back to sleep now. " Past Psych History Current OP Treatment: none. Sertraline managed by PCP. 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 Relationship History: to , Bhavna, of 50+ years Children: 5 children, many grandchildren Spiritual Affiliation: denied Legal History: denied Psychological Trauma History: Denied Review of Systems Constitutional: No fever, No chills, No weakness Eyes: No redness, No diplopia ENT: + hearing loss, No sore throat Respiratory: No cough, No wheezing, No shortness of breath Cardiac: No chest pain, No orthopnea Abdomen: No pain, No vomiting Musculoskeletal: No muscle pain, No calf pain Male : + dysuria, + urinary frequency, + incontinence, + nocturia more than once/night, + hematuria Neurologic: + memory loss, No weakness, No numbness/tingling Psychiatric: + depression symptoms, + anhedonism, + anxiety Heme: No abnormal bleeding/bruising, No clotting problems Endo: No excessive thirst, No excessive urination Skin: No rash, No new/changing skin lesions Allergies Coded Allergies: Penicillins (Verified Allergy, Mild, RASH, 11/01/16) Clindamycin (Verified Allergy, Unknown, UNKNOWN, 11/01/16) Mirabegron (Verified Adverse Reaction, Severe, DELIRIUM, 11/01/16) Confusion, slurred speech Morphine (Verified Adverse Reaction, Intermediate, mental status change, ) Oxycodone (Verified Adverse Reaction, Mild, CONFUSION, 11/01/16) Medications Current Psych Meds: Haldol 2.5 mg IM q4h PRN Home medications per pharmacy in [place]: Sertraline 100 mg daily - last filled August 2016. Most recent refills for 30 day supply were Mar - August Ativan 0.5mg qHS last filled Mar 2016 Current Inpatient Medications Medications (Trade) Dose Ordered Sig/Tonia Route Start Time Stop Time Status Last Admin Dose Admin Acetaminophen (Tylenol Tab) 650 mg Q4H PRN PO 11/01/16 20:00 12/01/16 19:59 Al Hydrox/Mg Hydrox/Simethicone (Maalox Max Susp) 15 ml Q4H PRN PO 11/01/16 20:00 12/01/16 19:59 Magnesium Hydroxide (Milk Of Magnesia Susp) 30 ml Q6H PRN PO 11/01/16 20:00 12/01/16 19:59 Ondansetron HCl (Zofran Inj) 4 mg Q6H PRN IV 11/01/16 20:00 12/01/16 19:59 Aspirin (Ecotrin Tab) 81 mg DAILY PO 11/02/16 09:00 12/02/16 08:59 11/04/16 07:39 81 MG Cholecalciferol (Vitamin D Tab) 2,000 inter.unit DAILY PO 11/02/16 09:00 12/02/16 08:59 11/04/16 07:39 2,000 INTER.UNIT Cyanocobalamin (Vitamin B-12 Tab) 1,000 mcg DAILY PO 11/02/16 09:00 12/02/16 08:59 11/04/16 07:39 1,000 MCG Diclofenac Sodium (Voltaren 1% Top Gel) 1 appln BID PRN EXT 11/01/16 20:00 12/01/16 19:59 Fexofenadine HCl (Randa Tab) 180 mg DAILY PRN PO 11/01/16 20:00 12/01/16 19:59 Finasteride (Proscar Tab) 5 mg DAILY PO 11/02/16 09:00 12/02/16 08:59 11/04/16 07:40 5 MG Fluticasone Propionate (Flonase Nasal [place]) 2 sprays DAILY PRN [place] 11/01/16 20:00 12/01/16 19:59 Gabapentin (Neurontin Cap) 100 mg HS PO 11/01/16 21:00 12/01/16 20:59 11/03/16 21:47 100 MG Ipratropium [place] (Atrovent 0.02% 0.5MG/2.5ML Neb) 0.5 mg QID PRN INH 11/01/16 20:00 12/01/16 19:59 11/03/16 12:44 0.5 MG Isosorbide Mononitrate (Imdur Ext Rel Tab) 30 mg QAM PO 11/02/16 09:00 12/02/16 08:59 11/04/16 07:45 30 MG Ketoconazole (Nizoral 2% Crm) 1 appln DAILY EXT 11/02/16 09:00 11/12/16 08:59 11/04/16 07:42 1 APPLN Levalbuterol (Xopenex 1.25MG/ 3ML Neb) 1.25 mg Q6 PRN INH 11/01/16 20:00 12/01/16 19:59 11/03/16 12:44 1.25 MG Metoprolol Succinate (Toprol Xl Tab) 50 mg DAILY PO 11/02/16 09:00 12/02/16 08:59 11/04/16 07:45 50 MG Pantoprazole Sodium (Protonix Tab) 40 mg DAILY PO 11/02/16 09:00 12/02/16 08:59 11/04/16 07:39 40 MG Senna/Docusate Sodium (Senokot S Tab) 2 tab HS PO 11/01/16 21:00 12/01/16 20:59 11/03/16 21:48 2 TAB Simvastatin (Zocor Tab) 20 mg HS PO 11/01/16 21:00 12/01/16 20:59 11/03/16 21:48 20 MG Tamsulosin HCl (Flomax Cap) 0.4 mg HS PO 11/01/16 21:00 12/01/16 20:59 11/03/16 21:46 0.4 MG Pentosan Polysulfate Sodium (Elmiron) 100 mg BID PO 11/01/16 21:00 12/01/16 20:59 11/04/16 07:42 100 MG Haloperidol Lactate (Haldol Inj) 2.5 mg Q4 PRN IM 11/01/16 20:00 12/01/16 19:59 Insulin Aspart (novoLOG ASPART) SLIDING SCALE G... ACHS SC 11/01/16 21:00 12/01/16 20:59 11/04/16 07:52 3 UNITS Furosemide (Lasix Tab) 20 mg DAILY PO 11/02/16 09:00 12/02/16 08:59 11/04/16 07:46 20 MG Potassium Chloride (Klor-Con M10) 10 meq DAILY PO 11/02/16 09:00 12/02/16 08:59 11/04/16 07:40 10 MEQ Glucose (Glucose 40% Gel) 15-30 GRAMS 15 GRAMS... UD PRN PO 11/01/16 22:15 12/01/16 22:14 Glucose (Glucose Chew Tab) 4-8 Tablets 4 Tabl... UD PRN PO 11/01/16 22:15 12/01/16 22:14 Dextrose (Dextrose 50% 50ML Syringe) 25-50ML OF 50% DW IV FOR... UD PRN IV 11/01/16 22:15 12/01/16 22:14 Glucagon (Glucagon Inj) 1 mg UD PRN SQ 11/01/16 22:15 12/01/16 22:14 Acetaminophen/ Hydrocodone Bitart ([place] 5/325 Tab) 1 tab Q4H PRN PO 11/02/16 11:45 11/16/16 11:44 11/04/16 03:24 1 TAB Phenazopyridine HCl (Pyridium Tab) 100 mg TID PO 11/02/16 21:00 12/02/16 20:59 11/04/16 07:41 100 MG Magnesium Oxide (Mag-Ox Tab) 400 mg BID PO 11/03/16 21:00 12/03/16 20:59 11/04/16 07:39 400 MG Belladonna/Opium (B & O Adult Supp) 60 mg Q6 PRN [place] 11/03/16 14:45 11/17/16 14:44 Magnesium Oxide (Mag-Ox Tab) 400 mg BID PO 11/04/16 10:30 12/04/16 10:29 11/04/16 11:14 400 MG Magnesium Sulfate 1 gm/Prmx 100 ml @ 100 mls/hr TODAY@1000 IV 11/04/16 10:00 11/04/16 13:00 11/04/16 11:14 100 MLS/HR Physical Exam Date Time Temp Pulse Resp B/P (MAP) Pulse Ox O2 Delivery O2 Flow Rate FiO2 11/04/16 08:00 Nasal Cannula 3.0 11/04/16 07:46 36.8 76 20 113/69 (84) 96 3.0 11/04/16 00:00 Nasal Cannula 3.0 11/03/16 23:10 36.7 88 20 150/76 (100) 96 Nasal Cannula 3.0 11/03/16 16:30 Nasal Cannula 3.0 11/03/16 12:44 86 20 94 Nasal Cannula 3.0 A physical exam was performed by primary team. I accept that physical as correct/medical clearance for the inpatient physical exam. Note: Nasal canula is around his arm at time of exam, when asked to put back on his nose, he stated he did not need it. Mental Status Exam: During interview pt is: lying in bed, somewhat cooperative with questioning. Appearance: multiple bruises on his forearms Eye contact is: fair Motor behavior is: no abnormal motor movements. No tremors. No psychomotor retardation. Speech: loud, somewhat rambling in nature. Affect: blunted/ dysphoric. labile as he comes close to tears and shortly after is laughing about a movie he recalls. Mood is: "sad because look where I am" Thought process: tangentiality, some thought blocking Thought content: No SI/HI Suicidal thought are: denied Homicidal thoughts are: denied Hallucinations: denied Cognition: language grossly intact, attention impaired, decreased memory, decreased concentration Intelligence estimated to be: average Insight: poor Judgement: poor Laboratory Results Last 24 Hours Test 11/03/16 16:31 11/03/16 20:20 11/04/16 07:07 11/04/16 07:31 Bedside Glucose 194 mg/dl 167 mg/dl 125 mg/dl White Blood Count 5.91 K/uL Red Blood Count 3.75 M/uL Hemoglobin 10.5 g/dL Hematocrit 34.4 % Mean Corpuscular Volume 91.7 fL Mean Corpuscular Hemoglobin 28.0 pg Mean Corpuscular Hemoglobin Concent 30.5 g/dl Platelet Count 166 K/uL Mean Platelet Volume 9.2 fL Neutrophils (%) (Auto) 64.5 % Lymphocytes (%) (Auto) 19.6 % Monocytes (%) (Auto) 12.4 % Eosinophils (%) (Auto) 2.7 % Basophils (%) (Auto) 0.3 % Neutrophils # (Auto) 3.81 K/uL Lymphocytes # (Auto) 1.16 K/uL Monocytes # (Auto) 0.73 K/uL Eosinophils # (Auto) 0.16 K/uL Basophils # (Auto) 0.02 K/uL RDW Standard Deviation 45.9 fL RDW Coefficient of Variation 13.8 % Immature Granulocyte % (Auto) 0.5 % Immature Granulocyte # (Auto) 0.03 K/uL Sodium Level 140 mmol/L Potassium Level 4.2 mmol/L Chloride Level 108 mmol/L Carbon Dioxide Level 28 mmol/L Anion Gap 4.0 mmol/L Blood Urea Nitrogen 21 mg/dl Creatinine 1.90 mg/dl Est Creatinine Clear Calc Drug Dose 35.4 ml/min Estimated GFR () 37.2 Estimated GFR (Non- 32.1 BUN/Creatinine Ratio 11.1 Random Glucose 130 mg/dl Calcium Level 8.0 mg/dl Magnesium Level 1.7 mg/dl Test 11/04/16 11:42 Bedside Glucose 180 mg/dl CHEST RADIOGRAPH: 1. 2.1 cm right lung nodule which corresponds to the upper lobe nodule shown on prior chest CT. This is highly suggestive of bronchogenic carcinoma. 2. Small bilateral pleural effusions with hazy bibasilar opacities which favor atelectasis over consolidation. 3. Trace bilateral pleural effusions. CT head : unremarkable Renal US: 1. Mild right collecting system dilatation. 2. Study compromised by suboptimal penetration. The bilateral renal calculi shown on CT of July 03, 2016 are not visualized on this exam, likely due to suboptimal penetration. Testicular Us: 1. No evidence of intratesticular mass 2. No evidence of testicular torsion 3. Large right-sided hydrocele other Assessment & Plan ASSESSMENT: 81 year old male with prior diagnosis of depression who presented with mental status changes. He was found to have UTI by urinalysis and is being treated. Differential diagnosis should include: primary psychiatric condition vs dementia vs delirium. He expresses depressive symptoms consistent with depression. There is possibility of underlying dementia, based on his score of 1 /5 on Mini-Cog screen. There is no evidence of electrolyte disturbance, drug or alcohol toxicity, or withdrawal at this time. Delirium should be distinguished from sundowning, and efforts should be made to discuss his symptom pattern with family. Inventory Assets Strengths: with supportive and children, has established care provider, hasn't been aggressive in hospital Needs: med compliance Risk Factors Assessment Male: Yes Access to guns: No Health problems: Yes Mental Health Diagnoses: Yes Substance use disorders: No Previous attempt: No Family history of suicide: No Previous psychiatric stay: No Protective Factors Assessment Employed: No RECOMMENDATIONS: 1. Altered mental status, multifactorial -Encephalopathy secondary to UTI -UA on 11/01/16 indicated UTI -He received one dose of ciprofloxacin on 11/01 and was continued on ceftriaxone -Dementia Mini-Cog Score of 1 out of 5. score less than 3 has been validated for dementia screening. Family expressed concern for underlying dementia at time of presentation Multiple phone calls to his , Bhavna Almendarez, we made on 11/04/16 to better assess his baseline. However we were unable to reach her. -Safety: -1-on-1 observation is not indicated at this time -Fall precautions should include a low bed -Avoid physical restrains unless pat cannot be verbally redirected -Behavior recommendations: -orientation cues and introductions at every interaction (white board, clock ) -Verbal redirection and reassurance -encourage regular visits with family and friends -day: lights on and windows open. night: lights off and windows closed -Medication Management: -avoid opiate analgesics -avoid drug-drug interactions, anticholinergics, and benzodiazepines 2. Depression He was unable to cooperate to perform PHQ-9, but does display depressive symptoms Based on pharmacy record, he has been noncompliant with home sertraline as prescribed by PCP. 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 Restart home sertraline 100mg daily and educate on the importance of taking this medication regularly
--- NOTE | 2016-11-04 14:42 | Psychiatric Consultation ---
Psychiatric Consultation Identifying Data: Mr. Almendarez is an 81 year old man from [place], [place] where he lives with his , Bhavna Almendarez. He was brought to the ER by his on 11/01/16 for confusion and pain with urination. CC: "I'm only depressed because I am here" HPI: Mr. Nathen Almendarez is an 81 year old man with a long list of medical issues. Consult is for altered mental status and behavioral support in setting of UTI. He received 1 Ativan prn and has a Haldol prn order that doesn't appear to have been required. No specific incidents noted overnight. He reports that he is worried about an ongoing workup for hematuria, "that no doctor has been able to figure it out, wouldn't it upset you?." He has seen several urologists in [place] and [place]. He expresses his belief that all doctors are out to order tests and make money. He often changed topics during the interview, refusing to answer direct questions. Referred to hospital as the [facility]. Today, he states that he feels less confused than yesterday. He reports sadness , loss of interest, decreased energy, decreased ability to concentrate, decreased appetite. Medicine team notes refer to continuing Zoloft but doesn't appear to be ordered her in the hospital. His pharmacy confirmed that he last filled in August, history of not filling reliably. He requested to end interview so he could go back to sleep. Past Psych History Current OP Treatment: none. Sertraline managed by PCP. Prior Psych Hospitalizations: none Access to a Gun: No Suicide Attempts: No Family History Cardiac disorder FATHER BROTHER SISTER Diabetes mellitus BROTHER SISTER Hypertension FATHER SISTER He denies a family history of psychiatric issues. 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 Allergies Coded Allergies: Penicillins (Verified Allergy, Mild, RASH, 11/01/16) Clindamycin (Verified Allergy, Unknown, UNKNOWN, 11/01/16) Mirabegron (Verified Adverse Reaction, Severe, DELIRIUM, 11/01/16) Confusion, slurred speech Morphine (Verified Adverse Reaction, Intermediate, mental status change, ) Oxycodone (Verified Adverse Reaction, Mild, CONFUSION, 11/01/16) Medications Current Psych Meds: Haldol 2.5 mg IM q4h PRN Home medications per pharmacy in [place]: Sertraline 100 mg daily - last filled August 2016. Most recent refills for 30 day supply were Mar - August Ativan 0.5mg qHS last filled Mar 2016 Current Inpatient Medications Medications (Trade) Dose Ordered Sig/Tonia Route Start Time Stop Time Status Last Admin Dose Admin Acetaminophen (Tylenol Tab) 650 mg Q4H PRN PO 11/01/16 20:00 12/01/16 19:59 Al Hydrox/Mg Hydrox/Simethicone (Maalox Max Susp) 15 ml Q4H PRN PO 11/01/16 20:00 12/01/16 19:59 Magnesium Hydroxide (Milk Of Magnesia Susp) 30 ml Q6H PRN PO 11/01/16 20:00 12/01/16 19:59 Ondansetron HCl (Zofran Inj) 4 mg Q6H PRN IV 11/01/16 20:00 12/01/16 19:59 Aspirin (Ecotrin Tab) 81 mg DAILY PO 11/02/16 09:00 12/02/16 08:59 11/04/16 07:39 81 MG Cholecalciferol (Vitamin D Tab) 2,000 inter.unit DAILY PO 11/02/16 09:00 12/02/16 08:59 11/04/16 07:39 2,000 INTER.UNIT Cyanocobalamin (Vitamin B-12 Tab) 1,000 mcg DAILY PO 11/02/16 09:00 12/02/16 08:59 11/04/16 07:39 1,000 MCG Diclofenac Sodium (Voltaren 1% Top Gel) 1 appln BID PRN EXT 11/01/16 20:00 12/01/16 19:59 Fexofenadine HCl (Randa Tab) 180 mg DAILY PRN PO 11/01/16 20:00 12/01/16 19:59 Finasteride (Proscar Tab) 5 mg DAILY PO 11/02/16 09:00 12/02/16 08:59 11/04/16 07:40 5 MG Fluticasone Propionate (Flonase Nasal [place]) 2 sprays DAILY PRN [place] 11/01/16 20:00 12/01/16 19:59 Gabapentin (Neurontin Cap) 100 mg HS PO 11/01/16 21:00 12/01/16 20:59 11/03/16 21:47 100 MG Ipratropium [place] (Atrovent 0.02% 0.5MG/2.5ML Neb) 0.5 mg QID PRN INH 11/01/16 20:00 12/01/16 19:59 11/03/16 12:44 0.5 MG Isosorbide Mononitrate (Imdur Ext Rel Tab) 30 mg QAM PO 11/02/16 09:00 12/02/16 08:59 11/04/16 07:45 30 MG Ketoconazole (Nizoral 2% Crm) 1 appln DAILY EXT 11/02/16 09:00 11/12/16 08:59 11/04/16 07:42 1 APPLN Levalbuterol (Xopenex 1.25MG/ 3ML Neb) 1.25 mg Q6 PRN INH 11/01/16 20:00 12/01/16 19:59 11/03/16 12:44 1.25 MG Metoprolol Succinate (Toprol Xl Tab) 50 mg DAILY PO 11/02/16 09:00 12/02/16 08:59 11/04/16 07:45 50 MG Pantoprazole Sodium (Protonix Tab) 40 mg DAILY PO 11/02/16 09:00 12/02/16 08:59 11/04/16 07:39 40 MG Senna/Docusate Sodium (Senokot S Tab) 2 tab HS PO 11/01/16 21:00 12/01/16 20:59 11/03/16 21:48 2 TAB Simvastatin (Zocor Tab) 20 mg HS PO 11/01/16 21:00 12/01/16 20:59 11/03/16 21:48 20 MG Tamsulosin HCl (Flomax Cap) 0.4 mg HS PO 11/01/16 21:00 12/01/16 20:59 11/03/16 21:46 0.4 MG Pentosan Polysulfate Sodium (Elmiron) 100 mg BID PO 11/01/16 21:00 12/01/16 20:59 11/04/16 07:42 100 MG Haloperidol Lactate (Haldol Inj) 2.5 mg Q4 PRN IM 11/01/16 20:00 12/01/16 19:59 Insulin Aspart (novoLOG ASPART) SLIDING SCALE G... ACHS SC 11/01/16 21:00 12/01/16 20:59 11/04/16 07:52 3 UNITS Furosemide (Lasix Tab) 20 mg DAILY PO 11/02/16 09:00 12/02/16 08:59 11/04/16 07:46 20 MG Potassium Chloride (Klor-Con M10) 10 meq DAILY PO 11/02/16 09:00 12/02/16 08:59 11/04/16 07:40 10 MEQ Glucose (Glucose 40% Gel) 15-30 GRAMS 15 GRAMS... UD PRN PO 11/01/16 22:15 12/01/16 22:14 Glucose (Glucose Chew Tab) 4-8 Tablets 4 Tabl... UD PRN PO 11/01/16 22:15 12/01/16 22:14 Dextrose (Dextrose 50% 50ML Syringe) 25-50ML OF 50% DW IV FOR... UD PRN IV 11/01/16 22:15 12/01/16 22:14 Glucagon (Glucagon Inj) 1 mg UD PRN SQ 11/01/16 22:15 12/01/16 22:14 Acetaminophen/ Hydrocodone Bitart ([place] 5/325 Tab) 1 tab Q4H PRN PO 11/02/16 11:45 11/16/16 11:44 11/04/16 03:24 1 TAB Phenazopyridine HCl (Pyridium Tab) 100 mg TID PO 11/02/16 21:00 12/02/16 20:59 11/04/16 07:41 100 MG Magnesium Oxide (Mag-Ox Tab) 400 mg BID PO 11/03/16 21:00 12/03/16 20:59 11/04/16 07:39 400 MG Belladonna/Opium (B & O Adult Supp) 60 mg Q6 PRN [place] 11/03/16 14:45 11/17/16 14:44 Magnesium Oxide (Mag-Ox Tab) 400 mg BID PO 11/04/16 10:30 12/04/16 10:29 11/04/16 11:14 400 MG Magnesium Sulfate 1 gm/Prmx 100 ml @ 100 mls/hr TODAY@1000 IV 11/04/16 10:00 11/04/16 13:00 11/04/16 11:14 100 MLS/HR Physical Exam Date Time Temp Pulse Resp B/P (MAP) Pulse Ox O2 Delivery O2 Flow Rate FiO2 11/04/16 08:00 Nasal Cannula 3.0 11/04/16 07:46 36.8 76 20 113/69 (84) 96 3.0 11/04/16 00:00 Nasal Cannula 3.0 11/03/16 23:10 36.7 88 20 150/76 (100) 96 Nasal Cannula 3.0 11/03/16 16:30 Nasal Cannula 3.0 11/03/16 12:44 86 20 94 Nasal Cannula 3.0 A physical exam was performed by primary team. Mental Status Exam: During interview pt is: lying in bed, somewhat cooperative with questioning. Appearance: multiple bruises on his forearms Eye contact is: fair Motor behavior is: no abnormal motor movements. No tremors. No psychomotor retardation. Speech: loud, somewhat rambling in nature. Affect: blunted/ dysphoric. labile as he comes close to tears and shortly after is laughing about a movie he recalls. Mood is: "sad because look where I am" Thought process: a bit tangential Thought content: No SI/HI Suicidal thought are: denied Homicidal thoughts are: denied Hallucinations: denied Cognition: language grossly intact, attention impaired, decreased memory, decreased concentration Intelligence estimated to be: average Insight: poor Judgement: poor Laboratory Results Last 24 Hours Test 11/03/16 16:31 11/03/16 20:20 11/04/16 07:07 11/04/16 07:31 Bedside Glucose 194 mg/dl 167 mg/dl 125 mg/dl White Blood Count 5.91 K/uL Red Blood Count 3.75 M/uL Hemoglobin 10.5 g/dL Hematocrit 34.4 % Mean Corpuscular Volume 91.7 fL Mean Corpuscular Hemoglobin 28.0 pg Mean Corpuscular Hemoglobin Concent 30.5 g/dl Platelet Count 166 K/uL Mean Platelet Volume 9.2 fL Neutrophils (%) (Auto) 64.5 % Lymphocytes (%) (Auto) 19.6 % Monocytes (%) (Auto) 12.4 % Eosinophils (%) (Auto) 2.7 % Basophils (%) (Auto) 0.3 % Neutrophils # (Auto) 3.81 K/uL Lymphocytes # (Auto) 1.16 K/uL Monocytes # (Auto) 0.73 K/uL Eosinophils # (Auto) 0.16 K/uL Basophils # (Auto) 0.02 K/uL RDW Standard Deviation 45.9 fL RDW Coefficient of Variation 13.8 % Immature Granulocyte % (Auto) 0.5 % Immature Granulocyte # (Auto) 0.03 K/uL Sodium Level 140 mmol/L Potassium Level 4.2 mmol/L Chloride Level 108 mmol/L Carbon Dioxide Level 28 mmol/L Anion Gap 4.0 mmol/L Blood Urea Nitrogen 21 mg/dl Creatinine 1.90 mg/dl Est Creatinine Clear Calc Drug Dose 35.4 ml/min Estimated GFR () 37.2 Estimated GFR (Non- 32.1 BUN/Creatinine Ratio 11.1 Random Glucose 130 mg/dl Calcium Level 8.0 mg/dl Magnesium Level 1.7 mg/dl Test 11/04/16 11:42 Bedside Glucose 180 mg/dl CHEST RADIOGRAPH: 1. 2.1 cm right lung nodule which corresponds to the upper lobe nodule shown on prior chest CT. This is highly suggestive of bronchogenic carcinoma. 2. Small bilateral pleural effusions with hazy bibasilar opacities which favor atelectasis over consolidation. 3. Trace bilateral pleural effusions. CT head : unremarkable Renal US: 1. Mild right collecting system dilatation. 2. Study compromised by suboptimal penetration. The bilateral renal calculi shown on CT of July 03, 2016 are not visualized on this exam, likely due to suboptimal penetration. Testicular Us: 1. No evidence of intratesticular mass 2. No evidence of testicular torsion 3. Large right-sided hydrocele other Assessment & Plan ASSESSMENT: 81 year old male with prior diagnosis of unspecified depression who presented with altered mental status and found to have UTI. Mini-Cog score was 2, missing numbers (zimbabwean cheese clock) suggests visuospatial perception difficulties that could suggest need for additional w/u for dementia. He does endorse multiple vegetative symptoms of depression. There is no acute indication for inpatient psychiatric admission. MS III Migel Mcintyre and liaison reaching out to to better understand baseline functioning and to determine if he in deed was taking Zoloft consistently prior to admission. It should be reordered an he is in agreement. Zoloft 50 mg today as already afternoon, Zoloft 100 mg tomorrow and 150 mg po daily after that. He is not hyponatremic. H&H are trending down so if team concerned about need for procedure/significant bleeding SSRI could be held.
[2016-11-04] MEDS ORDERED: SERTRALINE HCL 50 MG TAB PO ONE (14:45)
[2016-11-04 15:13] VITALS: BP 128/68; PULSE 75; TEMP 36.3; O2SAT 95
[2016-11-04] MEDS: MAGNESIUM HYDROXIDE SUSP 30 ML UDC PO PRN (16:07)
[2016-11-04] MEDS: SIMVASTATIN 20 MG TAB PO SCH (20:23)
[2016-11-04] MEDS: TAMSULOSIN HCL 0.4 MG CAP PO SCH (20:23)
[2016-11-04] MEDS: DOCUSATE SODIUM/SENNA 50/8.6MG TAB PO SCH (20:24)
[2016-11-04] MEDS: GABAPENTIN 100 MG CAP PO SCH (20:26)
[2016-11-04 23:10] VITALS: BP 125/63; PULSE 75; TEMP 36.8; O2SAT 95
[2016-11-05 07:06] VITALS: BP 129/75; PULSE 81; TEMP 36.4; O2SAT 90
[2016-11-05 07:45] LABS: BUN/CREATININE RATIO 12.4 (10-20); CALCIUM 8.3 mg/dl (8.5-10.1); CREATININE 1.9 mg/dl (0.60-1.40); POTASSIUM 4.4 mmol/L (3.5-5.1)
[2016-11-05] MEDS: ASPIRIN 81 MG ECTAB PO SCH (08:00)
[2016-11-05] MEDS: METOPROLOL SUCC 50MG EXT REL TAB PO SCH (08:01)
[2016-11-05] MEDS: CYANOCOBALAMIN 500 MCG TAB (VIT B-12) PO SCH (08:01)
[2016-11-05] MEDS: PANTOprazole SOD 40 MG TAB PO SCH (08:01)
[2016-11-05] MEDS: ISOSORBIDE MONONITRATE 30 MG TABCR PO SCH (08:01)
[2016-11-05] MEDS: PHENAZOPYRIDINE HCL 200 MG TAB PO SCH ×2 (08:02→13:15)
[2016-11-05] MEDS: POTASSIUM CHLORIDE 10 MEQ TABCR PO SCH (08:03)
[2016-11-05] MEDS: FUROSEMIDE 20 MG TAB PO SCH (08:03)
[2016-11-05] MEDS: FINASTERIDE 5 MG TAB PO SCH (08:04)
[2016-11-05] MEDS: PENTOSAN POLYSULFATE SODIUM 100 MG CAP PO SCH (08:04)
[2016-11-05] MEDS: MAGNESIUM OXIDE 400 MG TAB PO SCH (08:04)
[2016-11-05] MEDS: CHOLECALCIFEROL 1000 INTER.UNIT TAB PO SCH (08:05)
[2016-11-05] MEDS: KETOCONAZOLE 2% CR 15 GM TUBE EXT SCH (08:06)
[2016-11-05] MEDS: MAGNESIUM HYDROXIDE SUSP 30 ML UDC PO PRN (08:13)
[2016-11-05] MEDS: INSULIN ASPART 100 UNITS/ML 3 ML PEN SC SCH ×2 (08:17→13:13)
[2016-11-05] MEDS ORDERED: SERTRALINE HCL 100 MG TAB PO ONE (09:00)
[2016-11-05] MEDS ORDERED: SERTRALINE HCL 100 MG TAB PO SCH (09:00)
--- NOTE | 2016-11-05 11:37 | Progress Note ---
Internal Med Progress Note Date of Service: Nov 05, 2016. Provider Documentation: SUBJECTIVE : Patient is same clinically, near his baseline with chronic urinary symptoms. Mental status is near his baseline. Awake, alert, oriented x 2. Does have chronic dysuria, bladder spasms- unchanged. No fever, chills, abdominal pain. Eager to be discharged. OBJECTIVE: Vital Signs-as noted below Exam: General-AAOX2, no distress Neck-Supple Lungs-AEBE, no wheezing, rales Heart-S1, S2 normal Abdomen- Soft, non tender, non distended, BS present Extremities-No edema Lab data as noted below. ASSESSMENT & PLAN: GRANT ON CKD III Likely this is new baseline as no acute issues identified and creatinine has been stable at 1.8-1.9 -S/P IVF -Monitor CHRONIC URINARY SYMPTOMS Has chronic dysuria, incontinence, overactive bladder, BPH, small capacity urinary bladder. Tried multiple medications in past (Myrbetriq, anticholinergics , rescue treatments) but failed to relieve his chronic symptoms. Went for a second opinion to [facility] -D/D Interstitial cystitis, prostatitis. With testicular pain - Orchitis, epididymitis considered. -Cystoscopy 09/27/16 showed very small bladder capacity and ureteral orifices were difficult to visualize. Cytology was benign - Plan for cystoscopy in OR in future. Was also offered cystectomy with neobladder reconstruction but he refused -On finasteride, Flomax, Elmiron, pyridium. -On IV Rocephin, but Urine cx- pin point growth-- discontinue as symptoms are chronic -Discussed with urology at length today- Nothing to offer at this point. Had discussion with patient as well. Plan is to continue to follow up with Dr Rodney and [facility]. ALTERED MENTAL STATUS : Resolved Near baseline now -Patient likely has baseline cognitive decline/possible early dementia which is progressively worsening in setting of chronic symptoms of dysuria. -Urine culture - pin point culture. ABNORMAL CXR CXR shows. 2.1 cm right lung nodule which corresponds to the upper lobe nodule shown on prior chest CT. This is highly suggestive of bronchogenic carcinoma. Lesion has grown from 1.4 to 2.1 cm. -Pulmonary was consulted. However, patient is already being followed up outpatient by Dr Johnson and plan is for repeat CT scan in future. Updated about these results. HYDROCELE, LEFT -Need to follow up outpatient CAD stable On aspirin, statin, beta miko, nitrates CHRONIC SYSTOLIC CHF EF 50-54% o echo done in 2016 -on lasix -on gentle fluids -will monitor for volume overload. COPD Not in exacerbation -Continue chronic O2 3 liters NC HS and PRN exertion -PRN nebs DM TYPE 2 -Holding glipizide -Insulin sliding scale DEPRESSION -Was on sertraline during last admission, but was tapered off as dose of 100 mg wasnt helping per . Psychiatry evaluated patient and recommended zoloft pending discussion with about his home meds. I had a detailed discussion with her today- zoloft 100 mg did not help. Will avoid any medications at this point as per /patient's wishes. Will defer it to PCP. VTE PROPHYLAXIS -No anticoagulant due to recent hematuria -SCD's CODE STATUS -Full code only if there is chance of recover as per my discussion with the . DISPOSITION PT/OT ordered recommends rehab Okay to discharge to hospital for special care today. Updated , Bhavna about discharge plan Vital Signs: Date Time Temp Pulse Resp B/P (MAP) Pulse Ox O2 Delivery O2 Flow Rate FiO2 11/05/16 08:22 Nasal Cannula 3.0 11/05/16 07:06 36.4 81 20 129/75 (93) 90 Nasal Cannula 3.0 11/05/16 00:00 Nasal Cannula 3.0 11/04/16 23:10 36.8 75 18 125/63 (83) 95 Nasal Cannula 3.0 11/04/16 19:34 Nasal Cannula 3.0 11/04/16 15:36 Nasal Cannula 3.0 11/04/16 15:13 36.3 75 20 128/68 (88) 95 Nasal Cannula 3.0 Lab Results: Results Past 24 Hours Test 11/04/16 11:42 11/04/16 16:13 11/04/16 19:58 11/05/16 06:54 Range/Units Bedside Glucose 180 153 162 70-99 mg/dl Sodium Level 140 136-145 mmol/L Potassium Level 4.4 3.5-5.1 mmol/L Chloride Level 106 98-107 mmol/L Carbon Dioxide Level 29 21-32 mmol/L Anion Gap 5.0 3-11 mmol/L Blood Urea Nitrogen 24 7-18 mg/dl Creatinine 1.90 0.60-1.40 mg/dl Est Creatinine Clear Calc Drug Dose 35.4 ml/min Estimated GFR () 37.2 Estimated GFR (Non- 32.1 BUN/Creatinine Ratio 12.4 10-20 Random Glucose 141 70-99 mg/dl Calcium Level 8.3 8.5-10.1 mg/dl Magnesium Level 2.0 1.8-2.4 mg/dl Test 11/05/16 07:29 Range/Units Bedside Glucose 156 70-99 mg/dl
[2016-11-05] MEDS ORDERED: GABA-112 PO (11:40)
--- NOTE | 2016-11-05 11:43 | Discharge Instructions ---
Discharge Instructions Date of Service Nov 05, 2016. Admission Reason for Admission: Altered Mental Status Discharge Discharge Diagnosis / Problem: 1. Altered mental status, likely progressive cognitive decline/Early jarret Discharge Goals Goal(s): Decrease discomfort, Improve function Activity Recommendations Activity Limitations: per Instructions/Follow-up section (PT/OT recommended) . Instructions / Follow-Up Instructions / Follow-Up MEDICATION CHANGES: Increased gabapentin to 200 mg q HS MONITOR BMP to be followed up outpatient- 11/16/16 Pulmonary nodule - up to 2.1 cm per CXR ---> Needs to be followed up FOLLOW UP 1. Follow up with PCP in 1 week 2. Follow up with Urology as per instructions. 3. Follow up with pulmonary as per schedule Current Hospital Diet Patient's current hospital diet: Diabetes Type 2 Diet, Low Sodium Diet (2gm Na) Discharge Diet Recommended Diet: AHA Diet (Heart Healthy), Low Sodium Diet (2gm Na), Diabetes Type 2 Diet Pending Studies Studies pending at discharge: no Laboratory Results Hemoglobin A1c Test 10/10/16 16:23 Range/Units Estimated Average Glucose 126 mg/dl Hemoglobin A1c 6.0 H 4.5-5.6 % Lipid Panel Test 10/11/16 05:34 Range/Units Triglycerides Level 139 0-150 mg/dl Cholesterol Level 95 0-200 mg/dl HDL Cholesterol 31 mg/dl Cholesterol/HDL Ratio 3.1 LDL Cholesterol, Calculated 36 mg/dl Medical Emergencies . Who to Call and When: Medical Emergencies: If at any time you feel your situation is an emergency, please call 911 immediately. . Non-Emergent Contact Non-Emergency issues call your: Primary Care Provider . . "Provider Documentation" section prepared by Jo Mcpherson. . VTE Core Measure Inpt VTE Proph given/why not?: SCD's
--- NOTE | 2016-11-05 11:52 | Discharge Summary ---
Discharge Summary Date of Service Nov 05, 2016. Discharge Summary Admission Date: Nov 01, 2016 at 20:09 Discharge Date: Nov 05, 2016 [facility] with PT/OT) Principal Diagnosis: 1. Altered mental status, likely progressive cognitive decline/early dementia 2. GRANT on CKD III, progressively worsening 3. Hx of pulmonary nodule per CT scan Secondary Diagnoses/Problems: 1. Chronic CHF, systolic 2. HTN 3. DM-II 4. Depression 5. COPD 6. Chronic hypoxic resp failure 7. CAD 8. Left hydrocele Procedures: IV fluids Antibiotics Cultures Renal US Testicular US CXR CT head PT/OT Consultations: -Urology -Pulmonary Pending Studies/Follow-Up: Instructions / Follow-Up Instructions / Follow-Up MEDICATION CHANGES: Increased gabapentin to 200 mg q HS MONITOR BMP to be followed up outpatient- 11/16/16 Pulmonary nodule - up to 2.1 cm per CXR ---> Needs to be followed up FOLLOW UP 1. Follow up with PCP in 1 week 2. Follow up with Urology as per instructions. 3. Follow up with pulmonary as per schedule Medication Reconciliation Changed Medications: Gabapentin (Neurontin) 100 Mg Cap 200 MG PO HS for 30 Days (Changed from: 100 MG) Continued Medications: Aspirin (Aspirin) 81 Mg Tab 81 MG PO DAILY Cholecalciferol (Vitamin D3) 1,000 Unit Tab 2000 UNITS PO DAILY Cyanocobalamin (Vitamin B-12) 1,000 Mcg Tab 1000 MCG PO DAILY Diclofenac Sodium (Topical) (Diclofenac Sodium) 1 % Gel 2 GM TOP BID PRN for Fexofenadine Hcl (Randa) 180 Mg Tab 180 MG PO DAILY PRN for ALLERGIES Finasteride (Finasteride) 5 Mg Tab 5 MG PO DAILY Fluticasone Propionate (Nasal) (Flonase Allergy Relief) 50 Mcg/Act Spr 2 SPRAYS BRITTON DAILY PRN for Allergy Symptoms Furosemide (Lasix) 20 Mg Tab 20 MG PO DAILY, #30 TAB Glipizide (Glipizide Er) 5 Mg Tab 5 MG PO DAILY, #30 TAB 5 Refills Home O2 Therapy (Oxygen) Gas 3 LITERS NA UD HS and PRN activity Ipratropium [place] (Atrovent 0.02% Soln) 2.5 Ml Nebu 2.5 ML NEB QID PRN for Shortness of Breath Isosorbide Mononitrate (Isosorbide Mononitrate ER) 30 Mg Tabcr 30 MG PO QAM Ketoconazole (Ketoconazole) 45 Appln/15 Gm Cr 1 APPLN TOP DAILY PRN for Ketoconazole (Ketoconazole) 60 Appln/120 Ml Sham 1 APPLN TOP UD APPLY TOPICALLY TO AFFECTED AREA EVERY 3 DAYS. MASSAGE INTO SCALP AND FACE, RINSE AFTER 5 MINUTES. DO 3 TIMES WEEKLY. Levalbuterol (Levalbuterol HCl) 1.25 Mg/3 Ml Nebu 1 VIAL INH 2-3XDAILY PRN for Shortness of Breath Metoprolol Succinate (Toprol Xl) 50 Mg Tabcr 50 MG PO DAILY Pantoprazole (Protonix) 40 Mg Tab 40 MG PO DAILY Pentosan Polysulfate Sodium (Elmiron) 100 Mg Cap 100 MG PO BID, CAP Potassium Chloride (Micro-K Ext Rel) 10 Meq Capcr 10 MEQ PO DAILY, #30 CAP [place] ([place]) (S[place]) 500 Mg Cap 1000 MG PO BID Sennosides-Docusate Sodium (Qc Stool Softener Plus La) 1 Tab Tab 2 TABS PO HS Simvastatin (Simvastatin) 20 Mg Tab 20 MG PO HS Tamsulosin HCl (Tamsulosin HCl) 0.4 Mg Cap 0.4 MG PO HS Admission Information HPI (per Admitting provider): This is an 81 year old male with PMH of chronic systolic CHF, CAD, carotid artery plaque, history of atrial flutter, 2nd degree AV block s/p pacemaker, dyslipidemia, DM type 2, COPD on home oxygen, CKD stage III, BPH, kidney stones , history of migraine was brought in by family as patient is getting confused and complaining lot of pain in his penile area, scrotum and back.Patient has been following with urology for his bladder pain for sometime. Initially was following with in [place] but then shifted to [place] for second opinion.Had cystoscopy recently which was not completed secondary to narrow orifices and biopsy done at that time was benign. Scheduled to have another cystoscopy later.Family likes to see the patient if urology consulted is warranted during this admission. says patient might have had fever yesterday. No gross blood in urine. Poor appetite. Nauseous but no vomiting.Received Ativan in [place] as patient was combative. Currently confused and was not able to answer my questions. Physical Exam (per Admitting): General Appearance: + mild distress Head: normocephalic, atraumatic Eyes: PERRL Neck: supple, no adenopathy, no carotid bruits Respiratory/Chest: lungs clear, normal breath sounds, no respiratory distress, no accessory muscle use Cardiovascular: regular rate, rhythm, no edema, no gallop, no murmur Abdomen/GI: normal bowel sounds, non tender, soft, no organomegaly Extremities/Musculoskelatal: normal inspection, no pedal edema Neurologic/Psych: alert, + disoriented Skin: normal color, warm/dry, no rash Hospital Course ALTERED MENTAL STATUS : Resolved Near baseline now -Patient likely has baseline cognitive decline/possible early dementia which is progressively worsening in setting of chronic symptoms of dysuria. -Psychiatry evaluated patient as well and did Mini Cog score- 2 - missing numbers (greek cheese clock) suggests visuospatial perception difficulties that could suggest need for additional w/u for dementia. -Need to follow up outpatient . Discussed with as well who has noticed signs of dementia too. -No signs of infection/sepsis. UTI ruled out- Urine culture - pin point culture. GRANT ON CKD III Likely this is new baseline as no acute issues identified and creatinine has been stable at 1.8-1.9 -S/P IVF -Monitor BMP outpatient- repeat on 11/16/16 CHRONIC URINARY SYMPTOMS Has chronic dysuria, incontinence, overactive bladder, BPH, small capacity urinary bladder. Tried multiple medications in past (Myrbetriq, anticholinergics , rescue treatments) but failed to relieve his chronic symptoms. [facility] -D[facility]D Interstitial cystitis, prostatitis. With testicular pain - Orchitis, epididymitis considered. -Cystoscopy 09/27/16 showed very small bladder capacity and ureteral orifices were difficult to visualize. Cytology was benign - Plan for cystoscopy in OR in future. Was also offered cystectomy with neobladder reconstruction but he refused -On finasteride, Flomax, Elmiron, pyridium. -On IV Rocephin, but Urine cx- pin point growth-- discontinued as symptoms are chronic -Discussed with urology at length today- Nothing to offer at this point. Had discussion with patient as well. Plan is to continue to follow up with Dr Rodney and [facility]. ABNORMAL CXR CXR shows. 2.1 cm right lung nodule which corresponds to the upper lobe nodule shown on prior chest CT. This is highly suggestive of bronchogenic carcinoma. Lesion has grown from 1.4 to 2.1 cm. -Pulmonary was consulted. However, patient is already being followed up outpatient by Dr Johnson and plan is for repeat CT scan in future. Updated about these results. HYDROCELE, LEFT -Need to follow up outpatient CAD stable On aspirin, statin, beta miko, nitrates CHRONIC SYSTOLIC CHF EF 50-54% o echo done in 2016 -Stable -on lasix COPD Not in exacerbation -Continue chronic O2 3 liters NC HS and PRN exertion -PRN nebs DM TYPE 2 -Holding glipizide -Insulin sliding scale DEPRESSION -Was on sertraline during last admission, but was tapered off as dose of 100 mg wasn't helping per . Psychiatry evaluated patient and recommended zoloft pending discussion with about his home meds. I had a detailed discussion with her today- zoloft 100 mg did not help. Will avoid any medications at this point due to risk of side effects in light of admissions for confusion, per /patient's wishes. Will defer it to PCP, but does have symptoms of depression and probably would benefit from treatment outpatient. No suicidal ideations. -Discussed about discharge plan with psychiatry and agrees with deferring decision about starting anti depression medications to PCP VTE PROPHYLAXIS -No anticoagulant due to recent hematuria -SCD's CODE STATUS -Full code only if there is chance of recover as per my discussion with the . DISPOSITION PT/OT ordered recommends rehab Okay to discharge to [facility] today. Updated , Bhavna about discharge plan Total time spent on discharge = 40 minutes This includes examination of the patient, discharge planning, medication reconciliation, and communication with other providers. Discharge Instructions Discharge Discharge Diagnosis / Problem: 1. Altered mental status, likely progressive cognitive decline/Early jarret Discharge Goals Goal(s): Decrease discomfort, Improve function Activity Recommendations Activity Limitations: per Instructions/Follow-up section (PT/OT recommended) . Instructions / Follow-Up Instructions / Follow-Up MEDICATION CHANGES: Increased gabapentin to 200 mg q HS MONITOR BMP to be followed up outpatient- 11/16/16 Pulmonary nodule - up to 2.1 cm per CXR ---> Needs to be followed up FOLLOW UP 1. Follow up with PCP in 1 week 2. Follow up with Urology as per instructions. 3. Follow up with pulmonary as per schedule Current Hospital Diet Patient's current hospital diet: Diabetes Type 2 Diet, Low Sodium Diet (2gm Na) Discharge Diet Recommended Diet: AHA Diet (Heart Healthy), Low Sodium Diet (2gm Na), Diabetes Type 2 Diet Pending Studies Studies pending at discharge: no Laboratory Results Hemoglobin A1c Test 10/10/16 16:23 Range/Units Estimated Average Glucose 126 mg/dl Hemoglobin A1c 6.0 H 4.5-5.6 % Lipid Panel Test 10/11/16 05:34 Range/Units Triglycerides Level 139 0-150 mg/dl Cholesterol Level 95 0-200 mg/dl HDL Cholesterol 31 mg/dl Cholesterol/HDL Ratio 3.1 LDL Cholesterol, Calculated 36 mg/dl Medical Emergencies . Who to Call and When: Medical Emergencies: If at any time you feel your situation is an emergency, please call 911 immediately. . Non-Emergent Contact Non-Emergency issues call your: Primary Care Provider . .
[2016-11-05 12:09] VITALS: BP 129/75; PULSE 81; TEMP 36.4; O2SAT 90
[2016-11-05 13:21] VITALS: O2SAT 90
[2016-11-06] MEDS ORDERED: SERTRALINE HCL 50 MG TAB PO SCH (09:00)
[2017-01-09] MEDS ORDERED: ESCI1TAB10 PO (14:48)
[2017-01-09] MEDS ORDERED: GLIP-197 PO (14:48)
[2017-01-09] MEDS ORDERED: GABA-112 PO (14:48)
[2017-01-09] MEDS ORDERED: FURO-85 PO (14:48)
[2017-01-09] MEDS ORDERED: POTA10TA PO (14:48)
[2017-01-09] MEDS ORDERED: BOPS PR (14:48)
[2017-01-19] MEDS ORDERED: CIPR-255 PO (14:00)
[2017-01-19] MEDS ORDERED: HYDR-3714 PO (14:00)
[2017-01-19] MEDS ORDERED: PHEN-775 PO (14:00)
[2017-01-24] MEDS ORDERED: CIPR1TAB11 (05:55)
[2017-01-24] MEDS ORDERED: PHEN-876 PO (05:55)
[2017-01-24] MEDS ORDERED: flagyl (05:55)
[2017-01-24] MEDS ORDERED: HYDR-3714 PO (05:55)
== END 2016-11-05 14:20 | DRG 683 ==
LOC: C.EDB 14:36 → C.MS2W 20:09 → ENRESERV 20:19
PROVIDERS: ADMIT Internal Medicine; ATTEND Internal Medicine
DX: N17.9 Acute kidney failure, unspecified (principal); I50.22 Chronic systolic (congestive) heart failure; I13.0 Hypertensive heart and chronic kidney disease with heart failure and stage 1 through stage 4 chronic kidney disease, or unspecified chronic kidney disease; J96.11 Chronic respiratory failure with hypoxia; R41.82 Altered mental status, unspecified; N18.3 Chronic kidney disease, stage 3 (moderate); F32.9 Major depressive disorder, single episode, unspecified; J44.9 Chronic obstructive pulmonary disease, unspecified; R30.0 Dysuria; R32 Unspecified urinary incontinence; N32.81 Overactive bladder; N40.0 Benign prostatic hyperplasia without lower urinary tract symptoms; R91.1 Solitary pulmonary nodule; N43.3 Hydrocele, unspecified; I25.10 Atherosclerotic heart disease of native coronary artery without angina pectoris; E11.22 Type 2 diabetes mellitus with diabetic chronic kidney disease; Z79.82 Long term (current) use of aspirin; Z82.49 Family history of ischemic heart disease and other diseases of the circulatory system; Z83.3 Family history of diabetes mellitus; Z87.891 Personal history of nicotine dependence; Z95.0 Presence of cardiac pacemaker; E78.5 Hyperlipidemia, unspecified; Z99.81 Dependence on supplemental oxygen

== ENCOUNTER → 2016-11-21 | Outpatient (CLI) | payer OTHER ==
[~2016-11-21] MED LIST changes: +BOPS PR; +CIPR-255 PO; +CIPR1TAB11; +ESCI1TAB10 PO; +FURO-85 PO; +HYDR-3714 PO; +PHEN-775 PO; +PHEN-876 PO; +POTA10CA28 PO; +POTA10TA PO; -SERT-234 PO; +flagyl
== END | disposition home or self-care (01) ==
LOC: C.LABPBG 13:03
PROVIDERS: ATTEND Urology
DX: R39.15 Urgency of urination (principal)

== ENCOUNTER → 2016-11-28 | Outpatient (CLI) | payer OTHER ==
--- NOTE | 2016-11-28 12:44 | DIAGNOSTIC IMAGING REPORT ---
PET/CT SKULL-THIGH HISTORY: Pulmonary nodule SINGLE PULMONARY NODULE TECHNIQUE: PET/CT was performed from the base of the skull through the pelvis following the intravenous administration of 14.8 mCi of F18-FDG. Non-contrast CT imaging was performed over the same range without breath-hold for attenuation correction of PET images and anatomic correlation, but not for primary interpretation as it is not of standard diagnostic quality. CT DOSE: COMPARISON: 10/12/2016 CT chest FINDINGS: HEAD AND NECK: There is no FDG-avid disease or significant lymphadenopathy in the imaged portions of the head and the neck. CHEST: 1.7 x 2.1 components of atelectasis right lower lobe and left base. Cm right upper lobe parenchymal nodule. Moderate increase in activity with an SUV of 4.0. Bilateral pleural effusions showing no increased activity. No evidence for metabolically active hilar or mediastinal activity. Physiologic activity within the myocardium. ABDOMEN/PELVIS: Several small retroperitoneal nodes showing no evidence for abnormal activity characteristics. Mild right renal hydronephrosis and hydroureter of uncertain etiology. Cystoscopy is suggested. Nonobstructive bowel pattern. Mild chronic sigmoid diverticulosis. Physiologic activity within the urinary bladder. Several bilateral nonobstructing renal cortical calcifications. Nodes measure to 7 mm. No abnormal metabolic activity characteristics are identified. Prior cholecystectomy. MUSCULOSKELETAL: There is no FDG-avid or destructive bone lesion. IMPRESSION: 1. 1.7 x 2.1 cm solitary nodule right upper lobe demonstrating increased metabolic activity. 2. A neoplastic process is a diagnosis of exclusion. 3. Bilateral pleural effusions with bibasilar atelectatic and volume loss-type change. 4. No evidence for metabolically active adenopathy. 5. Mild right renal hydroureteronephrosis of uncertain etiology. Cystoscopy is suggested. 6. Several nonobstructing bilateral renal calcifications. The above report was generated using voice recognition software. It may contain grammatical, syntax or spelling errors. Electronically signed by: John López M.D. 11/28/2016 12:42 PM Dictated Date/Time: 11/28/2016 12:28 PM
== END | disposition home or self-care (01) ==
LOC: C.PET 09:21
PROVIDERS: ATTEND Internal Medicine Pulmonary Disease
DX: R91.1 Solitary pulmonary nodule (principal); N13.30 Unspecified hydronephrosis; N20.0 Calculus of kidney

== ENCOUNTER → 2016-12-21 | Outpatient (CLI) | payer OTHER | END | disposition home or self-care (01) | LOC: C.LABSPEC 14:17 | PROVIDERS: ATTEND Nurse Practitioner Family | DX: N39.0 Urinary tract infection, site not specified (principal) ==

== ENCOUNTER → 2016-12-28 | Outpatient (CLI) | payer OTHER | END | disposition home or self-care (01) | LOC: C.LABSPEC 14:18 | PROVIDERS: ATTEND Nurse Practitioner Family | DX: N39.0 Urinary tract infection, site not specified (principal) ==

== ENCOUNTER → 2017-01-16 | Outpatient (CLI) | payer OTHER ==
[~2017-01-16] MED LIST changes: -CIPR1TAB11; -NZRCR TOP; -PHEN-876 PO; -POTA10CA28 PO; -SAW1CAP11 PO; -flagyl
[2017-01-16 17:12] LABS: URINE APPEARANCE TURBID (CLEAR); URINE BILIRUBIN NEG (NEG); URINE COLOR DK YELLOW; URINE EPITHELIAL CELL AUTO >30 /lpf (0-5); URINE NITRITE NEG (NEG); URINE PH 5.5 (4.5-7.5); UROBILINOGEN NEG (NEG)
[2017-01-16 17:19] LABS: MANUAL MICROSCOPIC REQUIRED? NO; REVIEW REQ? YES
== END | disposition home or self-care (01) ==
LOC: C.LABSPEC 14:33
PROVIDERS: ATTEND Urology
DX: N39.41 Urge incontinence (principal)

== ENCOUNTER → 2017-01-19 | Day surgery (SDC) | payer OTHER ==
[2017-01-09 14:56] VITALS: BMI 29.0
--- NOTE | 2017-01-09 15:56 | PAT Medication Instructions ---
Service Date Jan 09, 2017. Current Home Medication List Aspirin (Aspirin), 81 MG PO QAM Belladonna/Opium (B & O), 30 MG WI TID PRN for N Cholecalciferol (Vitamin D3), 2,000 UNITS PO QAM Cyanocobalamin (Vitamin B-12), 1,000 MCG PO QAM Diclofenac Sodium (Topical) (Diclofenac Sodium), 2 GM TOP BID PRN for Escitalopram Oxalate (Lexapro), 20 MG PO QAM Fexofenadine Hcl (Randa), 180 MG PO DAILY PRN for ALLERGIES Finasteride (Finasteride), 5 MG PO QAM Fluticasone Propionate (Nasal) (Flonase Allergy Relief), 2 SPRAYS BRITTON DAILY PRN for Allergy Symptoms Furosemide (Lasix), 20 MG PO QAM Gabapentin (Neurontin), 200 MG PO HS Glipizide (Glipizide Er), 1 TAB PO QAM Home O2 Therapy (Oxygen), 3 LITERS NA UD Ipratropium [place] (Atrovent 0.02% Soln), 2.5 ML NEB QID PRN for Shortness of Breath Isosorbide Mononitrate (Isosorbide Mononitrate ER), 30 MG PO QAM Ketoconazole (Ketoconazole), 1 APPLN TOP UD Levalbuterol (Levalbuterol HCl), 1 VIAL INH 2-3XDAILY PRN for Shortness of Breath Metoprolol Succinate (Toprol Xl), 25 MG PO QAM Pantoprazole (Protonix), 40 MG PO QAM Pentosan Polysulfate Sodium (Elmiron), 100 MG PO BID Potassium Chloride (K-Tabs), 20 MEQ PO QAM Sennosides-Docusate Sodium (Qc Stool Softener Plus [place]), 2 TABS PO HS Simvastatin (Simvastatin), 20 MG PO HS Tamsulosin HCl (Tamsulosin HCl), 0.4 MG PO HS Medication Instructions For Your Scheduled Surgery - Hold as of 12/25/16 per surgeon's instructions: Aspirin (Aspirin), 81 MG PO QAM - Hold the following medications 24 hours prior to surgery: Diclofenac Sodium (Topical) (Diclofenac Sodium), 2 GM TOP BID PRN Ketoconazole (Ketoconazole), 1 APPLN TOP UD - Hold the following medications the morning of surgery: Cholecalciferol (Vitamin D3), 2,000 UNITS PO QAM Cyanocobalamin (Vitamin B-12), 1,000 MCG PO QAM Fexofenadine Hcl (Randa), 180 MG PO DAILY PRN for ALLERGIES Furosemide (Lasix), 20 MG PO QAM Glipizide (Glipizide Er), 1 TAB PO QAM Potassium Chloride (K-Tabs), 20 MEQ PO QAM - Take the following medications the morning of surgery with a sip of water OTHERWISE NOTHING TO EAT OR DRINK AFTER MIDNIGHT: Belladonna/Opium (B & O), 30 MG WI TID PRN Escitalopram Oxalate (Lexapro), 20 MG PO QAM Metoprolol Succinate (Toprol Xl), 25 MG PO QAM Pantoprazole (Protonix), 40 MG PO QAM Fluticasone Propionate (Nasal) (Flonase Allergy Relief), 2 SPRAYS [place] DAILY PRN for Allergy Symptoms Ipratropium [place] (Atrovent 0.02% Soln), 2.5 ML NEB QID PRN for Shortness of Breath Levalbuterol (Levalbuterol HCl), 1 VIAL INH 2-3XDAILY PRN for Shortness of Breath Finasteride (Finasteride), 5 MG PO QAM Isosorbide Mononitrate (Isosorbide Mononitrate ER), 30 MG PO QAM Pentosan Polysulfate Sodium (Elmiron), 100 MG PO BID - Take the following medications as scheduled the night before surgery: Simvastatin (Simvastatin), 20 MG PO HS Tamsulosin HCl (Tamsulosin HCl), 0.4 MG PO HS Belladonna/Opium (B & O), 30 MG WI TID PRN Gabapentin (Neurontin), 200 MG PO HS Sennosides-Docusate Sodium (Qc Stool Softener Plus [place]), 2 TABS PO HS Fluticasone Propionate (Nasal) (Flonase Allergy Relief), 2 SPRAYS BRITTON DAILY PRN for Allergy Symptoms Ipratropium [place] (Atrovent 0.02% Soln), 2.5 ML NEB QID PRN for Shortness of Breath Levalbuterol (Levalbuterol HCl), 1 VIAL INH 2-3XDAILY PRN for Shortness of Breath Pentosan Polysulfate Sodium (Elmiron), 100 MG PO BID If you have any questions please call us at [phone] or [phone] or [phone]
--- NOTE | 2017-01-09 16:38 | DIAGNOSTIC IMAGING REPORT ---
CHEST PREADMISSION(PA/LAT) CLINICAL HISTORY: preop COMPARISON STUDY: 11/01/2016 FINDINGS: The heart is borderline enlarged. There is a left subclavian dual-chamber central venous pacemaker present. There is no evidence of failure. There is a 24 mm right midlung zone pulmonary nodule. There is a small right pleural effusion. There is a 4.5 cm somewhat nodular right basilar airspace opacity, likely atelectatic or inflammatory. There is a rounded opacity at the left lung base, likely representing a nipple shadow.[ IMPRESSION: 1. 24 mm right midlung zone pulmonary nodule 2. Small right pleural effusion 3. Interval development of a 4.5 cm somewhat nodular right basilar airspace opacity, likely atelectatic or inflammatory. Short-term follow-up is recommended. Electronically signed by: Lazarus Abbott M.D. 01/09/2017 4:36 PM Dictated Date/Time: 01/09/2017 4:34 PM
[~2017-01-19] VITALS: Ht 177.8 cm; Wt 93.0 kg
[~2017-01-19] MED LIST changes: +ATROPINE SULFATE 0.1 MG/ML 5ML SYR IV PRN; +BELLADONNA/OPIUM SUPP 60 MG SUPP PR ONE; +CIPR1TAB11; +CIPROFLOXACIN / D5W 400 MG IV SCH; +CIPROFLOXACIN 500MG HOME PACK PO ONE; +CONRAY 30% 150ML BOTTLE ONE; +EpHEDrine SULFATE INJ 50 MG/ML AMP IV PRN; +FENTANYL CITRATE INJ 50 MCG/1 ML 2 ML VIAL IV PRN; +FENTANYL CITRATE INJ 50 MCG/1 ML 2 ML VIAL ONE; +HYDROCODONE/ACETAMINOPHEN 7.5/325MG TAB PO PRN; +HYDROCODONE/ACETAMINOPHEN 7.5/325MG TAB PO SCH; +HYDROmorphone INJ 0.5 MG/0.5 ML SYR IV PRN; +HYDROmorphone INJ 1 MG/ML SYR IV PRN; +LIDOCAINE HCL 2% 2 ML VIAL (20MG/ML) ONE; +MIDAZOLAM HCL 1 MG/ML 2ML VIAL ONE; +ONDANSETRON INJ 2 MG/ML 2 ML VIAL IV PRN; +OXYCODONE/ACETAMINOPHEN 5-325 TAB PO PRN; +PHEN-876 PO; +PHENAZOPYRIDINE HCL 200 MG TAB PO PRN; +PHENAZOPYRIDINE HOME PACK 200 MG VIAL PO ONE; +PHENYLEPHRINE 100MCG/ML 5ML SYR ONE; +PROPOFOL IV EMULSION 10 MG/ML 20 ML VIAL IV ONE; +SODIUM CHLORIDE 0.9% 1000ML 1,000 ML IV SCH; +flagyl
[2017-01-19 12:37] VITALS: BP 148/70; PULSE 77; TEMP 36.7; O2SAT 96; Ht 177.8 cm; Wt 93.0 kg
--- NOTE | 2017-01-19 12:57 | History & Physical Bridge Note ---
H&P Re-Evaluation Bridge Note: I have examined the patient, reviewed the History & Physical and in the interval since the performance of the History & Physical I have noted the following changes of clinical significance: No changes noted
--- NOTE | 2017-01-19 14:52 | Discharge Instructions ---
Discharge Instructions Date of Service Jan 19, 2017. Admission Reason for Admission: Bladder Lesion, Abnormal Bladder Mucosa Discharge Discharge Diagnosis / Problem: Abnormal cysto, pelvic pain s/p biopsy, fulguration Discharge Goals Goal(s): Decrease discomfort, Improve disease control, Diagnostic testing, Therapeutic intervention Activity Recommendations Activity Limitations: as noted below Lifting Limitations: no more than 25 pounds, gradually increase as tolerated Exercise/Sports Limitations: rest today, gradually increase as tolerated May Resume Sexual Activity: after two weeks Shower/Bathe: no limitations Driving or Machine Use: resume 1 day after discharge . Instructions / Follow-Up Instructions / Follow-Up In office as scheduled Blood in urine expected Discharge Diet Recommended Diet: Regular Diet (good fluid intake) Procedures Procedures Performed: Cystoscopy, Bladder Biopsy; Rollerball Fulgration Pending Studies Studies pending at discharge: yes List of pending studies: Pathology results Medical Emergencies . Who to Call and When: Medical Emergencies: If at any time you feel your situation is an emergency, please call 911 immediately. . Non-Emergent Contact Non-Emergency issues call your: Urologist Call Non-Emergent contact if: you have a fever, temperature is above 101, your pain is not controlled, your pain is worsening, your pain is unusual for you, your pain is concerning you, you have any medication questions . . "Provider Documentation" section prepared by Roman Rodney. . VTE Core Measure Inpt VTE Proph given/why not?: SCD's [place] Drug Monitoring Program Search Results: patient reviewed within database, see additional documentation (known history of B&O supp, last narcotic Rx Oct 2016)
--- NOTE | 2017-01-19 14:55 | [facility] Post Operative Brief Note ---
Immediate Operative Summary Operative Date Jan 19, 2017. Pre-Operative Diagnosis Pelvic pain, abnormal cystoscopy; hemorrhagic cystitis Post-Operative Diagnosis Pelvic pain, abnormal cystoscopy; hemorrhagic cystitis Procedure(s) Performed Cystoscopy, Bladder Biopsy; Rollerball Fulgration Surgeon Dr. Sally Rodney Chrome Plater Helper Surgeon(s) None Estimated Blood Loss 20mL Findings Diffuse hemorrhagic cystitis, worst at bladder neck and trigone, relative sparing of dome, UOs visualized and avoided Specimens Fresh: 1. Urine- first for culture and sensitivity, then second for cytology Permanent Specimens: A. Random Bladder Biopsies Drains 18 fr barker 10 cc H2O Anesthesia GALMA Complication(s) None Disposition Recovery Room / PACU
--- NOTE | 2017-01-19 15:04 | [facility] Operative Report ---
Operative Report Operative Date Jan 19, 2017. Pre-Operative Diagnosis Pelvic pain, abnormal cystoscopy; hemorrhagic cystitis Post-Operative Diagnosis Pelvic pain, abnormal cystoscopy; hemorrhagic cystitis Procedure(s) Performed Cystoscopy, Bladder Biopsy; Rollerball Fulguration Surgeon Dr. Sally Rodney Long Term Acute Care Registered Nurse Surgeon(s) None Estimated Blood Loss 20mL Findings Diffuse hemorrhagic cystitis, worst at bladder neck and trigone, relative sparing of dome, UOs visualized and avoided Specimens Fresh: 1. Urine- first for culture and sensitivity, then second for cytology Permanent Specimens: A. Random Bladder Biopsies Drains 18 fr barker 10 cc H2O Anesthesia GALMA Complication(s) None Disposition Recovery Room / PACU Indications 81-year-old male with a history of chronic pelvic pain and hemorrhagic cystitis here today for bladder biopsy and fulguration. Please see H&P for further details. Intravenous ciprofloxacin provided for antibiotic coverage and SCDs used for DVT prophylaxis. Description of Procedure Patient was properly identified and brought into the operative suite after identification of appropriate consent of the chart. General anesthesia with laryngeal mask was initiated and patient was prepped and draped in standard fashion for this procedure. Full timeout procedure was followed. 22 Bahamian rigid cystoscope was introduced into the bladder the due to diffuse hemorrhagic cystitis visualization was quite poor. This was replaced with a 27 Bahamian resectoscope and with some continuous irrigation visualization was improved. Diffuse hemorrhagic cystitis with some sparing of the dome of the bladder was appreciated. Bullous edema was present at the bladder neck. Ureteral orifices were noted to be somewhat patulous on both sides. Interestingly, some pasty white debris was noted to be extruding from the right ureteral orifice over the course of the case, not repeated. Previous PET scan demonstrated mild right hydronephrosis. Irrigation bags were placed approximately 50 cm to allow for some degree of hydrodistension over the course of the procedure. Cold cup bladder biopsies were taken from licensing representative locations and sent with a labeled random bladder biopsies. After this was done rollerball fulguration was used to ablate all abnormal-appearing mucosa that was not in the vicinity of the ureteral orifices. After this was done significantly decreased bleeding from the patient's bladder was noted. The hope is that if this inflammation is to blame for the patient's pelvic pain his symptoms will improve. After this was complete decreased hematuria and inflammation was noted. Adequate bladder capacity after procedure was noted with no evidence of bladder perforation or other significant bladder injury. The area of the ureteral orifices was noted to be intact without fulguration of the UOs. Bladder was partially distended and resectoscope was removed. 18 Bahamian Barker catheter was placed for immediate postoperative decompression with a plan trial of void in the postoperative period. Belladonna and opium suppository was provided for postoperative analgesia. Anesthesia was reversed and patient was transferred to the recovery room in stable condition. Follow-up care: Trial void prior to discharge home. Prescription for Vicodin, ciprofloxacin and Pyridium was provided. Outpatient follow-up appointment is confirmed. Postoperative care is discussed with the patient's . Patient to contact our service with any fevers, chills, nausea, vomiting or other significant difficulties in the postoperative period. I attest to the content of the Intraoperative Record and any orders documented therein. Any exceptions are noted below.
--- NOTE | 2017-01-19 15:19 | Anesthesiology Progress Note ---
Anesthesia Post Op Note Date & Time Jan 19, 2017 at 15:19 Vital Signs Pain Intensity: 0 Vital Signs Past 12 Hours Date Time Temp Pulse Resp B/P (MAP) Pulse Ox O2 Delivery O2 Flow Rate FiO2 01/19/17 15:10 71 18 138/91 100 Oxymask 10 01/19/17 15:00 71 21 126/78 100 Oxymask 10 01/19/17 14:53 37.0 76 16 165/70 100 Oxymask 10 01/19/17 12:37 36.7 77 18 148/70 (96) 96 Room Air Notes Mental Status: alert / awake / arousable, participated in evaluation Pt Amnestic to Procedure: Yes Nausea / Vomiting: adequately controlled Pain: adequately controlled Airway Patency, RR, SpO2: stable & adequate BP & HR: stable & adequate Hydration State: stable & adequate Anesthetic Complications: no major complications apparent
[2017-01-19 15:40] VITALS: BP 114/48; PULSE 69; TEMP 36.4; O2SAT 92
[2017-01-19 16:10] VITALS: BP 111/53; PULSE 62; TEMP 36.5; O2SAT 96
[2017-01-19 16:40] VITALS: BP 118/62; PULSE 66; TEMP 36.6; O2SAT 93
== END | disposition home or self-care (01) ==
LOC: C.ACU 11:52
PROVIDERS: ATTEND Urology
DX: R10.2 Pelvic and perineal pain (principal); R93.41 Abnormal radiologic findings on diagnostic imaging of renal pelvis, ureter, or bladder; N30.20 Other chronic cystitis without hematuria; J44.9 Chronic obstructive pulmonary disease, unspecified; I25.2 Old myocardial infarction; E11.9 Type 2 diabetes mellitus without complications; B37.49 Other urogenital candidiasis; R31.29 Other microscopic hematuria; N30.91 Cystitis, unspecified with hematuria; I25.10 Atherosclerotic heart disease of native coronary artery without angina pectoris; F03.90 Unspecified dementia, unspecified severity, without behavioral disturbance, psychotic disturbance, mood disturbance, and anxiety; I10 Essential (primary) hypertension; Z98.49 Cataract extraction status, unspecified eye; Z90.49 Acquired absence of other specified parts of digestive tract; Z96.659 Presence of unspecified artificial knee joint; Z95.0 Presence of cardiac pacemaker; Z98.890 Other specified postprocedural states; Z87.891 Personal history of nicotine dependence; Z79.82 Long term (current) use of aspirin; Z88.1 Allergy status to other antibiotic agents; Z88.0 Allergy status to penicillin; Z88.5 Allergy status to narcotic agent; Z80.9 Family history of malignant neoplasm, unspecified; Z80.42 Family history of malignant neoplasm of prostate; Z82.49 Family history of ischemic heart disease and other diseases of the circulatory system

== ENCOUNTER → 2017-01-24 | Day surgery (SDC) | payer OTHER ==
[2017-01-09 16:57] LABS: BASO % 0.4 %; BASO ABS # 0.03 K/uL (0-0.2); COMPLETE YES; EOS % 1.1 %; HEMATOCRIT 36.9 % (42-52); IG% 0.6 %; LYMPH % 16.6 %; LYMPH ABS # 1.31 K/uL (1.2-3.4); MEAN CELL VOLUME 90.2 fL (80-100); MEAN CORPUSCULAR HEMOGLOBIN 28.1 pg (25-34); MEAN CORPUSCULAR HGB CONC 31.2 g/dl (32-36); MEAN PLATELET VOLUME 9.5 fL (7.4-10.4); MONO % 8.5 %; NEUT % 72.8 %; PLATELET COUNT 234 K/uL (130-400); RED BLOOD COUNT 4.09 M/uL (4.7-6.1); WHITE BLOOD COUNT 7.89 K/uL (4.8-10.8)
[2017-01-09 17:03] LABS: BLOOD UREA NITROGEN 29 mg/dl (7-18); BUN/CREATININE RATIO 13.1 (10-20); CALCIUM 8.6 mg/dl (8.5-10.1); CARBON DIOXIDE 26 mmol/L (21-32); CHLORIDE 108 mmol/L (98-107); GLUCOSE 194 mg/dl (70-99); POTASSIUM 4.2 mmol/L (3.5-5.1); SODIUM 144 mmol/L (136-145)
[2017-01-09 17:04] LABS: URINE APPEARANCE TURBID (CLEAR); URINE BILIRUBIN NEG (NEG); URINE COLOR YELLOW; URINE EPITHELIAL CELL AUTO 20-30 /lpf (0-5); URINE NITRITE NEG (NEG); URINE SPECIFIC GRAVITY 1.019 (1.000-1.030); UROBILINOGEN NEG (NEG)
[2017-01-09 17:05] LABS: MANUAL MICROSCOPIC REQUIRED? NO; REVIEW REQ? YES
[2017-01-09 17:08] LABS: PROTHROMBIN TIME (PATIENT) 10.7 SECONDS (9.0-12.0)
[2017-01-10 15:53] VITALS: Ht 180.3 cm; Wt 96.0 kg
[~2017-01-24] VITALS: Ht 180.3 cm; Wt 96.0 kg
[~2017-01-24] MED LIST changes: -BELLADONNA/OPIUM SUPP 60 MG SUPP PR ONE; -CIPROFLOXACIN / D5W 400 MG IV SCH; -CIPROFLOXACIN 500MG HOME PACK PO ONE; -CONRAY 30% 150ML BOTTLE ONE; +DEXAMETHASONE SOD INJ 4 MG/ML VIAL ONE; +GLYCOPYRROLATE INJ 0.2 MG/ML VIAL ONE; -HYDROCODONE/ACETAMINOPHEN 7.5/325MG TAB PO PRN; -HYDROCODONE/ACETAMINOPHEN 7.5/325MG TAB PO SCH; -HYDROmorphone INJ 0.5 MG/0.5 ML SYR IV PRN; +LABETALOL HCL IV 5 MG/ML 20ML IV PRN; +LARYING-O-JET KIT (LTA) ONE; +MEPERIDINE HCL 25 MG/ML CARP IV PRN; +NEOSTIGMINE METHYLSULFATE 5 MG/5 ML SYR ONE; +ONDANSETRON INJ 2 MG/ML 2 ML VIAL ONE; -OXYCODONE/ACETAMINOPHEN 5-325 TAB PO PRN; -PHENAZOPYRIDINE HCL 200 MG TAB PO PRN; -PHENAZOPYRIDINE HOME PACK 200 MG VIAL PO ONE; -PHENYLEPHRINE 100MCG/ML 5ML SYR ONE
[2017-01-24 06:02] VITALS: BP 137/62; PULSE 73; TEMP 37.1; O2SAT 97
[2017-01-24 07:00] LABS: BUN/CREATININE RATIO 14.3 (10-20); CALCIUM 8.5 mg/dl (8.5-10.1); CREATININE 2.2 mg/dl (0.60-1.40); POTASSIUM 4.5 mmol/L (3.5-5.1)
--- NOTE | 2017-01-24 07:04 | History and Physical ---
History & Physical Date of Service Jan 24, 2017. History & Physical CC: Right upper lobe nodule, EBUS w/ENB HPI: Patient is an 81-year-old male with history of COPD, GERD, dependence on supplemental O2, CAD, and chronic renal insufficiency presenting today for EBUS w/ENB evaluation of a right upper lobe nodule. The patient recently had a repeat CT scan of the chest with PET/CT scan completed. His CT scan of the chest completed on 10/12/16 showed interval increase in the right upper lobe density measuring 1.8 cm compared to 1.5 cm from June 2014. Pet CT scan showed 1.7 x 2.1 cm solitary nodule in the right upper lobe demonstrating increased FDG avidity. Bilateral pleural effusions were also noted, but no evidence for metabolically active adenopathy was noted. The patient typically sees Dr. Gautam as an outpatient for his pulmonary symptoms. It ultimately was discussed with the patient that the right upper lobe nodule could be neoplasm, and he was scheduled for his procedure today. Past medical history: Prostatic hypertrophy with urinary obstruction, COPD, hx C diff infection, hypertension, history of meningitis, history of nephrolithiasis Surgical history: History of bronchoscopy, cataract surgery, catheterization stent placement, coli cystotomy, colonoscopy, pericardial window, hand surgery, knee replacement , lithotripsy, pacemaker placement, renal vessel revision, sinus surgery, thoracentesis Social history: History of alcohol abuse, former smoker, , retired from work Family history: Prostate cancer, heart disease Current medications: DuoNeb, levalbuterol, tamsulosin 0.4 mg once daily, belladonna-opium 16.2-30 mg rectal post suppository, aspirin 81 mg daily, Flonase, furosemide 20 mg daily p.r.n., gabapentin, Glucotrol XL 2.5 mg daily, isosorbide mononitrate ER 30 mg daily, Klor-Con 20 mEq daily, Lexapro 10 mg daily, metoprolol 50 mg daily, Proscar 5 mg daily, Protonix 40 mg daily, simvastatin 20 mg daily Physical Exam: General: Patient is awake, alert, cooperative, and in no acute distress. Well developed. Well-nourished. Head: Normocephalic, Atraumatic. ENT: PERRLA, No discharge, EOMI, Sclera normal Neck: Normal ROM. Trachea midline. No stridor Respiratory: Minimal decreased breath sounds at the bases but generally clear. No accessory muscle use. Cardiovascular: Regular rate and rhythm. No murmur appreciate. Normal S1/S2. Abdomen: Nontender to palpation. Normal bowel sounds hear throughout. No guarding. Abdomen is soft and nontender Back: Normal inspection. Extremities: No edema, cyanosis. Normal ROM Neuro: Alert, Oriented x 3. CN II-XII grossly intact. Sensation and motor function grossly intact. Psych: Mood and affect are normal. Imaging: PET/CT 11/28/16: -1.7 x 2.1 cm solitary nodule right upper lobe demonstrating increased metabolic activity. -A neoplastic process is a diagnosis of exclusion. -Bilateral pleural effusions with bibasilar atelectatic and volume loss-type change. -No evidence for metabolically active adenopathy. -Mild right renal hydroureteronephrosis of uncertain etiology. Cystoscopy is suggested. -Several nonobstructing bilateral renal calcifications. Labs 01/09/17: WBC 7.89 RBC 4.09 Hgb 11.5 Hct 36.9 Creatinine 2.20 BUN 29 Plan: Plan for EBUS w/ ENB of right upper lobe nodule today. Patient was seen and evaluated and plan is agreed upon we'll move forward with procedure.
--- NOTE | 2017-01-24 09:08 | Bronchoscopy Procedure Note ---
Bronchoscopy Procedure Note Procedure: Flexible-Bronchoscopy, EBUS, Tbbx, GETA Consent: Obtained through the patient placed into the chart Pre-Procedural Dx: PET avid right upper lobe nodule Post-Procedural Dx: PET avid right upper lobe nodule Analgesia: GETA Sedation: GETA Procedure: The Olympus video bronchoscope and EBUS scope were used for this procedure Initially the flexible bronchoscope was used for evaluation of the airways. The ET tube was notably 4 cm above the level of the deanna. Trachea: Visualized portion of the trachea was anatomically within normal limits Deanna: Anatomically within normal limits Right bronchial tree: Right mainstem bronchus: Anatomically within normal limits Right upper lobe: Anatomically within normal limits Bronchus intermedius: Anatomically within normal limits Right middle lobe: Anatomically within normal limits Right lower lobe: Anatomically within normal limits Findings: No significant findings noted Left bronchial tree: Left mainstem bronchus: Anatomically within normal limits Left upper lobe: Anatomically within normal limits Lingula: Anatomically within normal limits Left lower lobe: Anatomically within normal limits Findings: No significant findings noted EBUS/FARIHA: Bibiaijeanne 7: 8.3mm 4R: 4.8mm 10R: 9mm FNA: 7: 3 passes 10R: 3passes BAL: RUL (RB1) X 3 EBL: 2cc Complications: None Follow-up: [facility]
[2017-01-24 10:00] VITALS: BP 129/54; PULSE 74; TEMP 36.7; O2SAT 94
[2017-01-24 10:26] VITALS: BP 124/58; PULSE 74; O2SAT 96
--- NOTE | 2017-01-24 10:27 | Discharge Instructions ---
Discharge Instructions Date of Service Jan 24, 2017. Admission Reason for Admission: PET avid pulmonary nodule Discharge Discharge Diagnosis / Problem: PET avid pulmonary nodule Discharge Goals Goal(s): Diagnostic testing Activity Recommendations Activity Limitations: resume your previous activity . Instructions / Follow-Up Instructions / Follow-Up Follow-up in the [facility] pulmonary division with Dr. Misha Gautam Current Hospital Diet Patient's current hospital diet: Discharge Diet Recommended Diet: Regular Diet Procedures Procedures Performed: Endobronchial Ultrasound Guided Biopsy; Flexible Bronchoscopy, Transbronchial needle aspiration, Bronchial washing right upper lobe Pending Studies Studies pending at discharge: no Medical Emergencies . Who to Call and When: Medical Emergencies: If at any time you feel your situation is an emergency, please call 911 immediately. . Non-Emergent Contact Non-Emergency issues call your: Feeder Worker Power Unit Operator . . "Provider Documentation" section prepared by Nagi Johnson. . VTE Core Measure Inpt VTE Proph given/why not?: Treatment not indicated
--- NOTE | 2017-01-24 10:30 | Anesthesiology Progress Note ---
Anesthesia Post Op Note Date & Time Jan 24, 2017 at 10:30 Vital Signs Pain Intensity: 0 Vital Signs Past 12 Hours Date Time Temp Pulse Resp B/P (MAP) Pulse Ox O2 Delivery O2 Flow Rate FiO2 01/24/17 10:26 74 20 124/58 96 01/24/17 10:00 36.7 74 20 129/54 94 Nasal Cannula 2 01/24/17 09:52 75 14 01/24/17 09:52 75 14 96 01/24/17 09:51 147/62 01/24/17 09:47 80 22 91 01/24/17 09:47 80 22 01/24/17 09:46 146/56 01/24/17 09:44 79 22 93 01/24/17 09:44 36.9 80 19 146/56 95 Nasal Cannula 2 01/24/17 09:44 79 22 01/24/17 09:41 142/60 01/24/17 09:39 78 17 01/24/17 09:39 79 17 148/56 98 01/24/17 09:36 163/58 01/24/17 09:34 78 15 01/24/17 09:34 77 15 100 01/24/17 09:33 78 24 98 01/24/17 09:33 78 24 01/24/17 09:31 161/61 01/24/17 09:28 81 19 01/24/17 09:28 81 19 100 01/24/17 09:26 158/67 01/24/17 09:23 83 26 100 01/24/17 09:23 83 26 01/24/17 09:21 157/56 01/24/17 09:19 163/62 01/24/17 09:18 36.3 84 16 163/62 99 Mask 10 01/24/17 06:02 37.1 73 18 137/62 (87) 97 Room Air Notes Mental Status: alert / awake / arousable, participated in evaluation Pt Amnestic to Procedure: Yes Nausea / Vomiting: adequately controlled Pain: adequately controlled Airway Patency, RR, SpO2: stable & adequate BP & HR: stable & adequate Hydration State: stable & adequate Anesthetic Complications: no major complications apparent
== END | disposition home or self-care (01) ==
LOC: C.ACU 05:01
PROVIDERS: ATTEND Internal Medicine Critical Care Medicine
DX: R91.1 Solitary pulmonary nodule (principal); I25.10 Atherosclerotic heart disease of native coronary artery without angina pectoris; I12.9 Hypertensive chronic kidney disease with stage 1 through stage 4 chronic kidney disease, or unspecified chronic kidney disease; N18.9 Chronic kidney disease, unspecified; G47.33 Obstructive sleep apnea (adult) (pediatric); K21.9 Gastro-esophageal reflux disease without esophagitis; E11.9 Type 2 diabetes mellitus without complications; I25.2 Old myocardial infarction; Z86.73 Personal history of transient ischemic attack (TIA), and cerebral infarction without residual deficits; Z95.0 Presence of cardiac pacemaker

== ENCOUNTER → 2017-02-22 | Outpatient (CLI) | payer OTHER ==
[~2017-02-22] MED LIST changes: -ATROPINE SULFATE 0.1 MG/ML 5ML SYR IV PRN; -CIPR-255 PO; -DEXAMETHASONE SOD INJ 4 MG/ML VIAL ONE; -EpHEDrine SULFATE INJ 50 MG/ML AMP IV PRN; -FENTANYL CITRATE INJ 50 MCG/1 ML 2 ML VIAL IV PRN; -FENTANYL CITRATE INJ 50 MCG/1 ML 2 ML VIAL ONE; -GLYCOPYRROLATE INJ 0.2 MG/ML VIAL ONE; -HYDROmorphone INJ 1 MG/ML SYR IV PRN; -LABETALOL HCL IV 5 MG/ML 20ML IV PRN; -LARYING-O-JET KIT (LTA) ONE; -LIDOCAINE HCL 2% 2 ML VIAL (20MG/ML) ONE; -MEPERIDINE HCL 25 MG/ML CARP IV PRN; -MIDAZOLAM HCL 1 MG/ML 2ML VIAL ONE; -NEOSTIGMINE METHYLSULFATE 5 MG/5 ML SYR ONE; -ONDANSETRON INJ 2 MG/ML 2 ML VIAL IV PRN; -ONDANSETRON INJ 2 MG/ML 2 ML VIAL ONE; -PHEN-775 PO; -PROPOFOL IV EMULSION 10 MG/ML 20 ML VIAL IV ONE; -SODIUM CHLORIDE 0.9% 1000ML 1,000 ML IV SCH
== END | disposition home or self-care (01) ==
LOC: C.LABSPEC 17:18
PROVIDERS: ATTEND Urology
DX: N18.3 Chronic kidney disease, stage 3 (moderate) (principal); Z87.440 Personal history of urinary (tract) infections

== ENCOUNTER → 2017-03-06 | Outpatient (CLI) | payer OTHER | END | disposition home or self-care (01) | LOC: C.LABSPEC 10:41 | PROVIDERS: ATTEND Urology | DX: N39.41 Urge incontinence (principal); N39.0 Urinary tract infection, site not specified; R10.2 Pelvic and perineal pain ==

== ENCOUNTER 2017-03-24 10:10 | Day surgery (SDC) | payer OTHER ==
[2017-03-24] VITALS (7 sets, daily range): BP systolic 96–136; BP diastolic 49–64; PULSE 76–90; TEMP 36.6–37.2; O2SAT 93–96; Ht 180.3 cm; Wt 97.5 kg
[~2017-03-24] VITALS: Ht 180.3 cm; Wt 97.5 kg
[2017-03-24 12:10] LABS: HEMATOCRIT 38.1 % (42-52); MEAN CELL VOLUME 92.9 fL (80-100); MEAN PLATELET VOLUME 9.4 fL (7.4-10.4); PLATELET COUNT 189 K/uL (130-400); WHITE BLOOD COUNT 7.22 K/uL (4.8-10.8)
[2017-03-24 12:13] LABS: PROTHROMBIN TIME (PATIENT) 10.2 SECONDS (9.0-12.0)
[2017-03-24 12:14] LABS: MEAN CORPUSCULAR HGB CONC 30.2 g/dl (32-36)
[2017-03-24 12:38] LABS: CALCIUM 8.5 mg/dl (8.5-10.1); CREATININE 2.13 mg/dl (0.60-1.40); POTASSIUM 3.8 mmol/L (3.5-5.1)
[2017-03-24 12:40] LABS: ALB/GLOB RATIO 0.8 (0.9-2)
--- NOTE | 2017-03-24 14:06 | Discharge Instructions ---
Discharge Instructions Procedure Procedure Date: Mar 24, 2017. Reason for visit: Solitary Pulmonary Nodule *Dr Abbott/[place]. Discharge Discharge Date: Mar 24, 2017. Discharge Diagnosis: right upper lobe lung nodule Instructions Activity Recommendations: 1 Day-May resume regular activity, 48 Hours of decreased exertion, 1 Day with no exercise/sex/sports, 1 Day with no driving/ machine use Return to School/Work: limitations (light activity x 48 hours) Recommended Home Diet: Resume Previous Diet Provider Instructions: Ct guided fine-needle aspiration of a right upper lobe pulmonary lesion is performed with 1 pass utilizing a 22-gauge Serina. Rare atypical cells were shown on the initial pass, and a second pass was proposed but the patient declined to continue due to discomfort. A trace pneumothorax was seen on the post-procedure CT images with mild hemorrhage around the nodule. The patient will undergo repeat chest Xray prior to discharge. ACTIVITY RECOMMENDATIONS: * Rest today. * Resume regular activity in one day. MEDICATIONS: * May take Tylenol or Ibuprofen as needed for pain. DIET: * Resume previous diet. SPECIAL CARE INSTRUCTIONS: Call your doctor if: * Temperature above 101 degrees F. * Pain not relieved by pain medicine ordered. * Increased drainage or redness from incision. * Notify your doctor with any questions or concerns. Call your doctor or go to the nearest Emergency Department if you experience: * Increased chest pain or shortness of breath. FOLLOW UP VISIT: Follow-up with Referring Physician as scheduled. Allergies Coded Allergies: Penicillins (Verified Allergy, Intermediate, RASH, 03/24/17) Clindamycin (Verified Allergy, Unknown, UNKNOWN, 03/24/17) Mirabegron (Verified Adverse Reaction, Severe, DELIRIUM, 03/24/17) Confusion, slurred speech Morphine (Verified Adverse Reaction, Intermediate, mental status change, 03/24/17) Lorazepam (Verified Adverse Reaction, Mild, ATIVAN AT NIGHT DISORIENTED, 03/24/17) Oxycodone (Verified Adverse Reaction, Mild, CONFUSION, 03/24/17) Gerber Bloom Recommendations: Call your doctor if: * Temperature above 101 degrees * Pain not relieved by pain medicine ordered * There is increased drainage or redness from any incision * You have any unanswered questions or concerns. Your Doctors Instructions noted above were prepared by provider Anand Brown. Patient Signature Section: Patient Instructions Signature Page Nathen Tanesha Patient (or Guardian) Signature/Date: I have read and understand the instructions given to me by my caregivers. Caregiver/RN/Doctor Signature/Date: The above-named patient and/or guardian has received patient instructions on this date. + Original Patient Signature Page (only) stays with chart. Please make copy for patient.
--- NOTE | 2017-03-24 14:16 | DIAGNOSTIC IMAGING REPORT ---
ADDENDUM Results were discussed with Dr. Gautam following the procedure. Electronically signed by: Anand Brown M.D. 03/24/2017 3:04 PM Dictated Date/Time: 03/24/2017 3:[address] GUIDED FINE-NEEDLE ASPIRATION RIGHT LUNG CLINICAL HISTORY: Right upper lobe pulmonary lesion. COMPARISON STUDY: PET/CT dated 11/28/2016. Chest CT dated 10/12/2016. PROCEDURE: The risks, benefits, and alternatives to the procedure were discussed with the patient who voiced understanding. Written informed consent was obtained. The patient was placed in the left lateral decubitus position in CT and the lesion in the right upper lobe was localized for CT guided fine aspiration. There is prepped and draped in the usual sterile fashion. The soft tissues were anesthetized with 1% lidocaine. The nodule was aspirated with 1 pass utilizing a 22-gauge Serina needle. There is significant blood return during aspiration, and a preliminary pathology indicated rare atypical cells an exercise. A second pass was proposed. The patient had moved significantly following the first pass and declined to undergo a second aspiration. CT DOSE: 1243.[address] findings: Again seen is a 2.4 cm irregular nodule in the right upper lobe which tents the major fissure. A second groundglass lesion in the right upper lobe measures 1.7 cm. Mild underlying emphysematous changes observed. The heart is enlarged and there is a cardiac pacemaker. A small pericardial effusion is identified. There are small pleural effusions with bibasilar atelectasis. A tiny pneumothorax was identified post procedure. There is also mild groundglass change around the right upper lobe nodule consistent with hemorrhage on the postaspiration images. IMPRESSION: 1. Findings needle aspiration of the right upper lobe pulmonary nodule is performed with 1 pass utilizing a 22-gauge Serina needle. See pathology report for results. 2. The patient declined to undergo additional passes. 3. A trace pneumothorax is identified post procedure. The patient will undergo a repeat chest x-ray prior to discharge following observation the medical treatment unit. 4. Trace perinodular hemorrhage is identified post procedure. 5. An additional 1.7 cm groundglass lesion in the right upper lobe is also concerning for low-grade neoplasm. Electronically signed by: Anand Brown M.D. 03/24/2017 2:14 PM Dictated Date/Time: 03/24/2017 2:08 PM
--- NOTE | 2017-03-24 14:52 | DIAGNOSTIC IMAGING REPORT ---
CHEST 2 VIEWS (INSPIRATION AND EXPIRATION) CLINICAL HISTORY: post R lung biopsy COMPARISON STUDY: 01/09/2017 FINDINGS: The cardiac and mediastinal contours remain stable. There is a left subclavian dual-chamber central venous pacemaker present. There is a small right apical pneumothorax with a pleural separation of 12 mm in expiration. There is a vague 2 cm right midlung zone nodule. There is persistent blunting left lateral costophrenic angle. IMPRESSION: Small right apical pneumothorax with a maximal pleural separation of 12 mm in expiration. Electronically signed by: Lazarus Abbott M.D. 03/24/2017 2:51 PM Dictated Date/Time: 03/24/2017 2:49 PM
[2017-03-24] MEDS ORDERED: ACETAMINOPHEN 325 MG TAB PO ONE (17:15)
[2017-03-24] MEDS ORDERED: NURSING VERBAL MED ORDER ONE (17:15)
== END 2017-03-24 17:31 | disposition home or self-care (01) ==
LOC: C.ACU 10:10
PROVIDERS: ATTEND Internal Medicine Pulmonary Disease
DX: R91.1 Solitary pulmonary nodule (principal)

== ENCOUNTER → 2017-07-04 | Outpatient (CLI) | payer OTHER ==
[~2017-07-04] MED LIST changes: +AZO PO; -BOPS PR; -CHOL1000 PO; +CHOL2000 PO; -CIPR1TAB11; +CYAN100020 PO; -CYAN10005 PO; -DICL1GEL34 TOP; +ESCI10TA17 PO; -ESCI1TAB10 PO; -FEXO1TAB46 PO; +FEXO1TAB49 PO; +FINA5TAB PO; -GLIP-197 PO; +GLIP5TAB11 PO; -HYDR-3714 PO; -METO-217 PO; +METO25TA4 PO; -NZRSHM TOP; -OXGN; -PHEN-876 PO; -POTA10TA PO; -PRS5 PO; -SENNTAB PO; -flagyl
[2017-07-04 13:53] VITALS: BP 97/62; PULSE 93; TEMP 36.7; O2SAT 93
--- NOTE | 2017-07-04 15:49 | Radiation Oncology Follow-Up ---
Radiation Oncology Follow-Up Date of Visit Jul 04, 2017. Reason For Visit One-month follow-up in cancer survivorship care plan Radiation Completion Date 06/02/17 Diagnosis (1) Pulmonary nodule Status: Chronic Onset Date: ~ 2010 Location: Right upper lobe Histology Subtype: Suspicious for non-small cell carcinoma Stage: l Permanent Comment: RUL 15 mm 06/24/14, 18 mm 10/12/16 Right upper lobe nodule noted in 2010 The lesion is 2.1 cm, PET-positive. Status post bronchoscopy and biopsy 01/24/2017, nondiagnostic Status post CT-guided needle aspiration 03/24/2017. Suspicious for non-small cell carcinoma Status post completion of radiation therapy June 02, 2017. He received 5000 cGy utilizing stereotactic body radiation therapy. Last Edited By: Azeb Aden on Jun 12, 2017 17:08 History of Present Illness Mr. Almendarez has a distant smoking history having quit 45 years ago. He did smoke for 30 years prior to that. In 2009 the patient was being monitored for a history of chronic obstructive pulmonary disease. They noted a right lung nodule. This nodule has been followed and has gradually increased in size. CT scan of the chest on 08/09/2012 showed a 1.2 by 1.7 cm rounded nodular opacity seen in the right upper lobe adjacent to the major fissure. No additional lesions were identified. Patient continued to be followed and a CT scan of the chest performed on 07/09/2013 again showed a stable 1.7 cm irregularly marginated right upper lobe pulmonary nodule abutting the major fissure. This was again reviewed is suspicious for bronchogenic carcinoma. He was no pathologic adenopathy appreciated. A CT scan of the chest was performed on 01/2015. This showed a 1.5 x 1.6 cm somewhat irregularly marginated nodule adjacent to the major fissure on the right described as stable with no change. Repeat CT scan of the chest performed on 10/12/2016 revealed an interval increase in the right upper lobe nodule presently measuring 1.8 cm and previously described as 1.5 cm located in the right upper lobe in contact with the right major fissure line. This prompted further evaluation including a PET CT scan performed on 11/28/2016. This described a 1.7 x 2.1 cm right upper lobe parenchymal nodule that revealed moderate increase in SUV activity of 4.0. There was no evidence of metabolically active hilar or mediastinal adenopathy Patient underwent a bronchoscopy with fine-needle EBUS. Lymph node sampling from station 7 showed no tumor seen. Case: -NG. Fine-needle EBUS of lymph node 10 are also showed no tumor seen. Case: -she. Bronchial washings of the right upper lobe revealed no tumor seen. Case: -NG. With the patient's approval and attempt was made at a tissue diagnosis with a CT -guided biopsy performed on 03/24/2017. This study describes a 2.4 cm irregular nodule in the right upper lobe which tents the major fissure. In addition a second groundglass lesion was noted just superior to this area again in the right upper lobe measuring 1.7 cm. 1 pass was performed. Additional tissue was suggested an additional passes recommended. The patient however refused. The additional 1.7 cm groundglass lesion was felt to be concerning for a low-grade neoplasm. The tissue obtained revealed very rare atypical cells present that were suspicious for non-small cell carcinoma. The overall findings therefore were suspicious for a non-small cell carcinoma in particular an adenocarcinoma. Case: -NG. Patient was recently seen by Dr. Tilley for oncologic evaluation and recommendations. He along with pulmonary did not feel the patient was a surgical candidate. He therefore suggested consideration of SBRT. We will therefore asked to see the patient today in referral to discuss this treatment option. He underwent treatment with SBRT and this was completed June 02, 2017. He received 5000 cGy. Interim History Since completion of his radiation therapy he feels that he has had increased shortness of breath. He does monitor his O2 pulse oximetry on a regular basis. He has a home monitor and for the most part is over 90%. At night when there are times that the oxygen is off he can fall to 88. During the day he does not require oxygen therapy. He has a mild dry cough. He has had a burning sensation in the right lower chest and right upper abdomen. His states that at times he will feel warm and then cold. He did not develop any area of skin irritation. He had no difficulty with swallowing. He is using his nebulizer 3 times a day as prescribed. Allergies Coded Allergies: Penicillins (Verified Allergy, Intermediate, RASH, 06/10/17) Clindamycin (Verified Allergy, Unknown, UNKNOWN, 06/10/17) Clonazepam (Verified Adverse Reaction, Severe, hallucinations, 07/04/17) Mirabegron (Verified Adverse Reaction, Severe, DELIRIUM, 06/10/17) Confusion, slurred speech Morphine (Verified Adverse Reaction, Intermediate, mental status change, ) Tramadol (Verified Adverse Reaction, Intermediate, confusion diff sleeping , 07/04/17) Lorazepam (Verified Adverse Reaction, Mild, ATIVAN AT NIGHT DISORIENTED, ) Oxycodone (Verified Adverse Reaction, Mild, CONFUSION, 06/10/17) Home Medications Scheduled Aspirin (Aspirin), 81 MG PO QAM Cholecalciferol (Vitamin D3), 1 CAP PO DAILY Cyanocobalamin (Vitamin B12), 1 TAB PO DAILY Escitalopram (Lexapro), 20 MG PO DAILY Fexofenadine Hcl (Randa Allergy), 1 TAB PO prn Finasteride (Proscar), 1 TAB PO DAILY Furosemide (Lasix), 1 TAB PO DAILY Gabapentin (Neurontin), 200 MG PO HS Glipizide (Glucotrol), 5 MG PO DAILY Ipratropium Keyes (Atrovent 0.02% Soln), 2.5 ML NEB prnqid Isosorbide Mononitrate (Isosorbide Mononitrate ER), 30 MG PO QAM Metoprolol Succinate (Toprol Xl), 1 TAB PO DAILY Pantoprazole (Protonix), 40 MG PO prn daily Pentosan Polysulfate Sodium (Elmiron), 100 MG PO TID Simvastatin (Simvastatin), 20 MG PO HS Tamsulosin HCl (Tamsulosin HCl), 0.4 MG PO HS Scheduled PRN Fluticasone Propionate (Nasal) (Flonase Allergy Relief), 2 SPRAYS BRITTON DAILY PRN for Nasal Congestion Levalbuterol (Levalbuterol HCl), 1 VIAL INH Q4H PRN for Shortness of Breath [Azo], 62 MG PO TID PRN for UNDECIDED Review of Systems Gastrointestinal: Symptoms: Nausea GI Comments: occ nausea increased diarrhea 3-4x per day not taking any meds for diarrhea Oral: Other Oral Symptoms: dif swallowing liquids diff to go down Respiratory: Symptoms: SOB With Exertion, Productive Cough Respiratory Comments: oxygen 3L prn continuous at night Sputum Character: occ yellow mostly clear Other Respiratory: increasing sob per patient Urinary: Symptoms: Burning, Incontinence Comments: had fulgeration of bladder 06/30/17 wears depends Skin: Symptoms: No Problems Physical Exam Vital Signs Date Time Temp Pulse Resp B/P (MAP) Pulse Ox O2 Delivery O2 Flow Rate FiO2 07/04/17 13:53 36.7 93 24 97/62 93 ECOG Performance Status: 2 Eyes: normal inspection, EOMI ENT: normal ENT inspection, hearing grossly normal Neck: no adenopathy Respiratory/Chest: no respiratory distress, no accessory muscle use, + crackles (Right lung mcdonough) Cardiovascular: regular rate, rhythm, no gallop, no murmur Extremities: no pedal edema Neurologic/Psychiatric: no motor/sensory deficits, alert, normal mood/affect Skin: warm/dry Pain Management Patient Reports Pain: Yes Pain Location: Chest Patient Preferred Pain Scale: 0 - 10 Initial Pain Intensity: 3.0 Pain Management Plan The pain level is low. He does not require pain management through our office. Laboratory Laboratory Results: not applicable Pathology Pathology Results: were reviewed, and pertinent findings noted in HPI Imaging Imaging Studies: were reviewed, and pertinent findings noted in HPI Assessment & Plan Plan: His case was reviewed with Dr. Zhang. Because of the increased shortness of breath and dry cough will go forward with getting a CT scan of the chest. Because he has poor renal function this will have to be without contrast. There is a possibility of radiation pneumonia. Prescription was given for Medrol Dosepak. They have been instructed to hold the medication until after the CT scan. We will schedule this for as soon as possible. He will be notified as to the results. He will otherwise return to our office in 3 months for recheck visit. We will continue to follow serial CT scans of the chest. Today we completed a cancer survivorship care plan. A copy of the document was given to the patient. He was given a survivorship booklet. He will call our office if he has any questions or concerns in the interim. Total Time In Follow-Up I spent 25 minutes speaking to the patient and performing examination. I spent 20 minutes reviewing information, preparing the survivorship document, and completing this note. Copy To Saran Jeffries D.O.; Misha Gautam M.D.; Kishan Avila PA-C; Daniel Guerra D.O.
== END | disposition home or self-care (01) ==
LOC: C.ONC 13:44
PROVIDERS: ATTEND Physician Assistant Medical
DX: Z08 Encounter for follow-up examination after completed treatment for malignant neoplasm (principal); Z92.3 Personal history of irradiation; Z85.118 Personal history of other malignant neoplasm of bronchus and lung

== ENCOUNTER → 2017-07-06 | Outpatient (CLI) | payer OTHER ==
--- NOTE | 2017-07-06 17:04 | DIAGNOSTIC IMAGING REPORT ---
(CHEST) THORAX WITHOUT CT DOSE: 733.06 mGycm CLINICAL HISTORY: 82 years-old Male with INCREASED SOB, LUNG CA. Acute shortness of breath with history of lung cancer TECHNIQUE: Multiaxial CT images of the chest were performed without contrast. A dose lowering technique was utilized adhering to the principles of ALARA. COMPARISON: Chest CT 10/12/2016, PET CT 11/28/2016, CT chest 06/24/2014. FINDINGS: Punctate calcification of the right thyroid lobe. Left subclavian pacer is noted with leads overlying the ventricles and right atrium. No pericardial effusion. Coronary arterial disease. No aortic aneurysm. Moderate atherosclerosis of the thoracic aorta. The unopacified pulmonary arterial tree is unremarkable. Thyroid is homogeneous. No pathologic adenopathy identified. Trace left and small right pleural effusions. No pneumothorax. The dependent subsegmental consolidative opacities are noted within the bilateral lung bases. Focal 6 mm groundglass nodule is noted involving the left upper lobe on image 100 of series 4 which appears unchanged dating back to at least 06/24/2014. There are a few subpleural nodules measuring up to 2 mm seen bilaterally which are unchanged dating back to at least 06/24/2014. Spiculated nodule with lobulated margins is again seen involving the posterior segment of the right upper lobe on image 121 series 4 measuring 1.6 x 2.0 cm in AP and transverse dimension, previously measuring 1.7 x 2.1 cm on PET/CT dated 11/28/2016. Ill-defined 1.2 x 0.7 cm groundglass opacity of the right upper lobe on image 101 series 4 is unchanged dating back to at least 06/24/2014. Central airways are patent. Mild bronchial wall thickening at the level the lung bases. Low attenuating lesions of the bilateral kidneys suggests renal cysts. Mild nonspecific bilateral perinephric stranding. Prior cholecystectomy. No acute abnormality identified within the imaged upper abdomen. Soft tissues are unremarkable. There are no suspicious lytic or blastic bony lesions identified. Multilevel endplate spurring about the spine. IMPRESSION: 1. Stable size and appearance of the spiculated nodule of the posterior segment right upper lobe, previously demonstrating hypermetabolic activity on PET/CT dated 11/28/2016. 2. Small right and trace left pleural effusions redemonstrated with subsegmental bibasilar consolidation suggesting compressive atelectasis. 3. Focal groundglass nodules of the bilateral upper lobes appear stable dating back to at least 06/24/2014. 4. No pathologic adenopathy identified. Electronically signed by: Ariel Shane M.D. 07/06/2017 5:03 PM Dictated Date/Time: 07/06/2017 4:52 PM
== END | disposition home or self-care (01) ==
LOC: C.CTS 16:18
PROVIDERS: ATTEND Physician Assistant Medical
DX: R06.02 Shortness of breath (principal); C34.11 Malignant neoplasm of upper lobe, right bronchus or lung

== ENCOUNTER 2017-07-23 18:56 | Inpatient (IN) | payer OTHER ==
[~2017-07-23] VITALS: Ht 180.3 cm; Wt 97.7 kg
[~2017-07-23 18:56] MED LIST changes: -XPNINS125 INH
[2017-07-23] MEDS ORDERED: NRN100 PO (19:28)
[2017-07-23] MEDS ORDERED: CHOL1CAP93 PO (19:28)
[2017-07-23] MEDS ORDERED: PANT40TA2 PO (19:28)
[2017-07-23] MEDS ORDERED: PRS5 PO (19:28)
[2017-07-23] MEDS ORDERED: LSX20 PO (19:28)
[2017-07-23] MEDS ORDERED: TPRSR/25 PO (19:28)
[2017-07-23] MEDS ORDERED: GLIP-171 PO (19:28)
[2017-07-23] MEDS ORDERED: ASPI81TA28 PO (19:32)
[2017-07-23] MEDS ORDERED: LXP/20 PO (19:35)
[2017-07-23 19:53] LABS: HEMATOCRIT 33.8 % (42-52); HEMOGLOBIN 10.8 g/dL (14.0-18.0); MEAN CELL VOLUME 89.7 fL (80-100); MEAN CORPUSCULAR HEMOGLOBIN 28.6 pg (25-34); MEAN PLATELET VOLUME 8.5 fL (7.4-10.4); PLATELET COUNT 179 K/uL (130-400); RED CELL DISTRIBUTION WIDTH CV 14.7 % (11.5-14.5); RED CELL DISTRIBUTION WIDTH SD 47.9 fL (36.4-46.3); WHITE BLOOD COUNT 7.58 K/uL (4.8-10.8)
[2017-07-23] MEDS ORDERED: SODIUM CHLORIDE 0.9% 1000ML 1,000 ML IV STA (19:57)
[2017-07-23] MEDS ORDERED: CIPROFLOXACIN 400MG / 200ML D5W IV STA (19:57)
[2017-07-23] MEDS ORDERED: SODIUM CHLORIDE 0.9% 1000ML 1,000 ML IV ONE (19:57)
[2017-07-23 20:12] LABS: ALBUMIN 2.5 gm/dl (3.4-5.0); CALCIUM 8.6 mg/dl (8.5-10.1); CREATININE 3.09 mg/dl (0.60-1.40); POTASSIUM 4.7 mmol/L (3.5-5.1)
[2017-07-23 20:15] LABS: TOTAL PROTEIN 6.8 gm/dl (6.4-8.2)
[2017-07-23] MEDS ORDERED: XPNINS125 INH (20:15)
[2017-07-23 20:29] LABS: BASO % 0.1 %; BASO ABS # 0.01 K/uL (0-0.2); EOS % 1.6 %; EOS ABS # 0.12 K/uL (0-0.5); IG# 0.07 K/uL (0.00-0.02); LYMPH % 6.7 %; LYMPH ABS # 0.51 K/uL (1.2-3.4); MONO ABS # 0.61 K/uL (0.11-0.59); NEUT % 82.7 %; NEUT ABS # 6.26 K/uL (1.4-6.5)
--- NOTE | 2017-07-23 20:31 | DIAGNOSTIC IMAGING REPORT ---
CT HEAD WITHOUT CONTRAST (CT) CLINICAL HISTORY: Altered level of consciousness COMPARISON STUDY: 11/01/2016 TECHNIQUE: Axial CT of the brain is performed from the vertex to the skull base. IV contrast was not administered for this examination. A dose lowering technique was utilized adhering to the principles of ALARA. CT DOSE: 2576.47 mGy.cm FINDINGS: No intra or extra-axial mass lesions are visualized. There is no CT evidence of acute cortical infarction. There is no evidence of midline shift. There is no acute hemorrhage. No calvarial fractures are visualized. There are minor white matter hypodensities likely on a small vessel basis. There is no evidence of pathologic ventricular dilatation. There is no evidence of acute sinusitis. There are postsurgical changes present within the paranasal sinuses IMPRESSION: No acute intracranial findings Electronically signed by: Lazarus Abbott M.D. 07/23/2017 8:30 PM Dictated Date/Time: 07/23/2017 8:29 PM
--- NOTE | 2017-07-23 20:37 | DIAGNOSTIC IMAGING REPORT ---
CHEST ONE VIEW PORTABLE CLINICAL HISTORY: Sepsis COMPARISON STUDY: 03/24/2017 FINDINGS: The heart is mildly enlarged. There is a left subclavian dual-chamber central venous pacemaker present. There is no acute parenchymal consolidation. There is no overt failure. There is minor basilar atelectasis. Small pleural effusions are suspected.[ The previously identified right midlung zone pulmonary nodule is difficult to visualize on the current study. IMPRESSION: Cardiomegaly and suspected small pleural effusions. No evidence of acute parenchymal consolidation. Electronically signed by: Lazarus Abbott M.D. 07/23/2017 8:36 PM Dictated Date/Time: 07/23/2017 8:35 PM
--- NOTE | 2017-07-23 20:57 | DIAGNOSTIC IMAGING REPORT ---
CT SCAN OF THE ABDOMEN AND PELVIS WITHOUT CONTRAST CLINICAL HISTORY: Flank pain. Possible obstruction. COMPARISON STUDY: 07/03/2016 TECHNIQUE: CT scan of the abdomen and pelvis was performed from the lung bases to the proximal femurs. Images are reviewed in the axial, sagittal, and coronal planes. IV contrast was not administered for this examination. A dose lowering technique was utilized adhering to the principles of ALARA. CT DOSE: 2052.63 mGy.cm FINDINGS: Lower chest: There are persistent but slightly smaller bilateral pleural effusions. There are associated bibasal atelectatic changes. There is no pericardial effusion. Liver: The unenhanced liver is normal in size, contour, and attenuation. There is no intrahepatic biliary ductal dilatation. Gallbladder: Surgically absent Spleen: Mildly enlarged measuring 14 cm Pancreas: Unremarkable. Adrenal glands: There is stable left adrenal gland thickening Kidneys: There is a 7 mm lower pole left renal calculus. There are 2 lower pole right renal calculi the largest of which measures 4 mm. There is mild bilateral hydronephrosis and hydroureter. No ureteral calculi are visualized. There is bilateral perinephric stranding left greater than right. There is a 15 mm right renal cyst. Bowel: There are no transition zones indicate bowel obstruction. The appendix appears normal. There is diverticulosis. There is no evidence of acute diverticulitis. Peritoneum: There is no intraperitoneal free air or abdominal ascites. Vasculature: The abdominal aorta is normal in course and caliber. The left renal artery stent is visualized. Adenopathy: None. Pelvic viscera: The bladder was not well-distended. There is bladder wall thickening. There is mild infiltration of the perivesical fat. Prostatic calcifications are visualized. Skeletal structures: No destructive osseous lesions are seen. IMPRESSION: 1. Bilateral pleural effusions with bibasal atelectasis 2. Bilateral hydronephrosis and bilateral hydroureter. Perinephric and periureteral stranding. No ureteral calculi are visualized. Correlation for evidence of urinary tract infection is recommended. 3. No evidence of bowel obstruction. No evidence of free air 4. Diverticulosis. No evidence of acute diverticulitis 5. Normal appendix 6. Stranding of perivesical fat. 7. Bilateral nephrolithiasis Electronically signed by: Lazarus Abbott M.D. 07/23/2017 8:55 PM Dictated Date/Time: 07/23/2017 8:47 PM
[2017-07-23] MEDS ORDERED: ONDANSETRON INJ 2 MG/ML 2 ML VIAL IV PRN (22:00)
[2017-07-23] MEDS ORDERED: FEXOFENADINE HCL 180 MG TAB PO PRN (22:15)
[2017-07-23] MEDS ORDERED: LEVALBUTEROL 1.25MG/3ML NEB INH PRN ×2 (22:15→22:45)
[2017-07-23] MEDS ORDERED: FLUTICASONE PROPIONATE NA SPR 16 GM BTL NAE PRN (22:15)
[2017-07-23] MEDS ORDERED: IPRATROPIUM BROMIDE NEB SOLN 0.02% 2.5 ML VIAL INH PRN ×2 (22:15→22:45)
[2017-07-23] MEDS: SODIUM CHLORIDE 0.9% 1000ML 1,000 ML IV SCH (23:14)
[2017-07-23 23:25] VITALS: BP 111/71; PULSE 94; TEMP 37.2; O2SAT 94; BMI 29.5
[2017-07-24] VITALS (9 sets, daily range): BP systolic 100–127; BP diastolic 44–73; PULSE 68–84; TEMP 36.6–37.7; O2SAT 92–98
[2017-07-24] MEDS ORDERED: CIPROFLOXACIN CONSULT ACTIVE PRN (00:15)
--- NOTE | 2017-07-24 01:15 | HISTORY & PHYSICAL EXAMINATION ---
DATE OF ADMISSION: 07/23/2017 Please discard my previous fraction of H and P dictated. CHIEF COMPLAINT: Acute confusion since this morning with back pain for the last 5 days. HISTORY OF PRESENT COMPLAINT: He is an 82-year-old male with significant complicated past medical history as mentioned below, including ischemic cardiomyopathy with systolic heart failure and biventricular pacemaker in situ, diabetes, COPD severe, chronic kidney disease stage III, general osteoarthritis, esophageal reflux with stricture, benign neoplasm of adrenal gland, renal calculi, non-small cell lung cancer, anxiety/depression, hyperlipidemia and lumbar degenerative disc disease, apparently was noted to have acute confusion since this morning. He has been making statements and noise that does not make any sense this morning and the condition is getting worse. This is associated with chills. He does not have any complaint except back pain which has been ongoing for the last 5 days. He is incontinent of urine, but has been passing small smelly urine frequently. He denies to have any other significant pain. In the Emergency Room, he was noted to have a few significant findings including possible UTI, GRANT 1, CKD and also bilateral acute hydronephrosis, hydroureter. From that point, he was admitted to telemetry unit for continuation of care. He was started on intravenous ciprofloxacin for possible UTI coverage. PAST MEDICAL HISTORY: Quite a long history including coronary atherosclerosis of the [place] coronary artery, status post biventricular pacemaker placed, ischemic cardiomyopathy, systolic heart failure, severe COPD, type 2 diabetes, chronic kidney disease stage III, general osteoarthritis, lumbar back pain, non-small cell lung cancer and bladder abnormality requiring frequent cystoscopic clearance, hypertension, hyperlipidemia, lumbar degenerative disc disease, and anxiety/depression. PAST SURGICAL HISTORY: Significant for arthroplasty of the right knee, bronchoscopy in the past with biopsy, cystoscopy for severe prostatitis, status post chest tube drainage in the past, pacemaker placement, cholecystectomy, sinus surgery. FAMILY HISTORY: Significant for mother at the age of 52 from a stroke. Father from diabetes complication. Sister diabetes complications, . Sister did have lung cancer too. SOCIAL HISTORY: and lives with his . Smoked 2.5 pack per day for 30 years. No alcohol. Activities of daily living are limited due to chronic condition. REVIEW OF SYSTEMS: Not possible at this time because of confusion. ALLERGIES: HE IS ALLERGIC TO PENICILLIN, CLINDAMYCIN, CLONAZEPAM, MIRABEGRON, MORPHINE, TRAMADOL, LORAZEPAM, AND OXYCODONE. MEDICATIONS: As an outpatient Lexapro, trying to discontinue; furosemide 20 mg daily, aspirin 81 mg daily, vitamin D3 1000 unit 2 capsules daily, vitamin B12 1000 mcg daily, Randa 180 mg daily, finasteride 5 mg daily, nasal spray 2 sprays as directed, gabapentin 100 mg tablet 2 tablets at bedtime, Glucotrol-XL 5 mg daily, ipratropium bromide as directed, isosorbide mononitrate 30 mg daily, Xopenex nebulized solution as directed, metoprolol 25 mg daily, Protonix 40 mg daily, Elmiron 100 mg capsule 3 times daily, simvastatin 20 mg daily, and tamsulosin 0.4 mg daily. PHYSICAL EXAMINATION: GENERAL: On examination in the Emergency Room, he was still confused but alert, awake, no acute distress. VITAL SIGNS: Temperature 37.2, pulse of 100, blood pressure 142/72, saturation 97% on 2 liters nasal cannula. HEENT: Unremarkable. NECK: Supple, no JVD, no bruit. CHEST: Decreased breath sounds both sides, but no wheezing or crackles. HEART: S1, S2 regular, no murmur. ABDOMEN: Distended, soft, mildly tender in the lower quadrants and also renal angles on either side. Bowel sounds present. EXTREMITIES: No edema. MUSCULOSKELETAL: Examination of the musculoskeletal system did not show any acute arthritis. CENTRAL NERVOUS SYSTEM: Totally confused, alert, awake, moving all the limbs. No focal motor deficit at this time but generally weak. LABORATORY DATA: Noted today white count was 7.58, H and H 10.8/33.8, platelet was 179. Sodium 137, potassium 4.7, chloride 104, carbon dioxide 26, BUN 36, creatinine 3.09. His creatinine was 2.17 in May, random glucose 221. Lactic acid was 2.23. LFTs unremarkable. UA examination still pending, but leukoesterase was large. IMAGING: CT head, no acute intracranial findings. Chest x-ray, cardiomegaly and suspected a small pleural effusion, no evidence of acute parenchymal consolidations. CT of the abdomen and pelvis reported as bilateral pleural effusion with bibasilar atelectasis, bilateral hydronephrosis and bilateral hydroureter, perinephritic and periureteric stranding. No ureteral calculi are visualized. No evidence of bowel obstruction, diverticulosis but no diverticulitis, normal appendix and stranding of perivesicular fat and bilateral nephrolithiasis. EKG pending. IMPRESSION AND PLAN: 1. Metabolic encephalopathy and the causes could be secondary to complicated urinary tract infection and/or acute kidney injury 1, chronic kidney disease and/or sepsis. The patient will be admitted to telemetry unit. He was started with intravenous fluid and also intravenous ciprofloxacin. Blood culture, urine culture has been sent. 2. Acute kidney injury on chronic kidney disease. His creatinine went up from 2.17 to 3.6 in the ER. He was started with intravenous fluid. It could be secondary to obstructive uropathy with hydronephrosis and hydroureter. Nephrology consultation will be taken. His PRP will be monitored. 3. Bilateral hydronephrosis with hydroureter with pyelonephritis/urinary tract infection. Again blood culture, urine culture has been sent and he was started with intravenous ciprofloxacin. Urology consultation was taken. Advised Cantu catheterization which was introduced in the ER. 4. Diabetes type 2. We will continue Glucotrol-XL, put him on sliding coverage and check hemoglobin A1c. 5. Ischemic cardiomyopathy with history of systolic heart failure and status post biventricular pacer placed. No acute findings at this time. Check EKG and check troponin. 6. Severe chronic obstructive pulmonary disease. We will continue with nebulized bronchodilator. No signs of exacerbation at this time. Will not add any steroid. 7. Esophageal reflux. Will continue with proton pump inhibitor. 8. Hypertension. Continue with medications right now. 9. Benign prostatic hypertrophy with a history of prostatitis in the past. Continue with current medications. 10. Deep venous thrombosis prophylaxis with subcutaneous heparin. 11. Code status. That was discussed with the family members, he will be full code. 12. Non-small cell lung cancer status post radiation therapy that was completed in May. In my clinical assessment, the beneficiary meets criteria as per CMS for 2 midnight stay in the hospital. MTDD
--- NOTE | 2017-07-24 02:46 | EMERGENCY ROOM VISIT NOTE ---
History Report prepared by Britt: Anton San Under the Supervision of: Dr. Ariel Faye M.D. First contact with patient: 19:01 Chief Complaint: ILLNESS Stated Complaint: BACK PAIN (CHRONIC), CHILLS History of Present Illness This HPI is limited secondary to the mental status of the patient. The patient is an 82 year old male who presents to the Emergency Room with complaints of chills. Per the nursing staff the patient's mental status "comes and goes," but he is currently altered. The patient did have radiation yesterday for lung cancer and had a sugar of 425 prior to arrival. The patient did complain of back pain today, but the patient has had chronic back pain for the past 8 years. He also has chronic bladder/urinary issues. Source of History: nursing staff History Limited By: AMS Quality: other (Chills) Review of Systems See HPI for pertinent positives & negatives. A total of 10 systems reviewed and were otherwise negative. Past Medical & Surgical Medical Problems: (1) Acute metabolic encephalopathy (2) GRANT (acute kidney injury) (3) Basal cell carcinoma (4) Bilateral hydronephrosis (5) BPH (benign prostatic hyperplasia) (6) CAD (coronary artery disease) (7) Carotid artery plaque (8) Chronic systolic (congestive) heart failure (9) COPD, severe (10) Depression (11) Diabetes mellitus (12) Dyslipidemia (13) Esophageal stricture (14) GERD (gastroesophageal reflux disease) (15) High degree atrioventricular block (16) Ischemic cardiomyopathy (17) DENISHA (obstructive sleep apnea) (18) Pulmonary nodule (19) Renal artery stenosis (20) Renal calculi (21) UTI (urinary tract infection) Surgical Problems: (1) H/O hand surgery (2) S/P cataract surgery (3) S/P cholecystectomy (4) S/P coronary artery stent placement (5) S/P sinus surgery (6) Status post total knee replacement, right Old medical records were reviewed. Nurse's notes were reviewed and I agree with. Family History Cardiac disorder FATHER BROTHER SISTER Diabetes mellitus BROTHER SISTER Hypertension FATHER SISTER Social History Smoking Status: Former Smoker Alcohol Use: none Drug Use: none Marital Status: Housing Status: lives with significant other Occupation Status: retired Current/Historical Medications Scheduled Aspirin (Aspirin Ec), 81 MG PO DAILY Cholecalciferol (D3-1000), 2,000 INTER.UNIT PO DAILY Cyanocobalamin (Vitamin B12), 1,000 MCG PO DAILY Escitalopram Oxalate (Escitalopram Oxalate), 20 MG PO DAILY Finasteride (Finasteride), 5 MG PO DAILY Furosemide (Furosemide), 20 MG PO DAILY Gabapentin (Gabapentin), 200 MG PO HS Glipizide Xl (Glucotrol Xl), 5 MG PO DAILY Ipratropium [place] (Atrovent 0.02% Soln), 2.5 ML NEB QID Isosorbide Mononitrate (Isosorbide Mononitrate ER), 30 MG PO QAM Metoprolol Succinate (Metoprolol Succinate ER), 25 MG PO DAILY Pantoprazole (Pantoprazole Sodium), 40 MG PO DAILY Pentosan Polysulfate Sodium (Elmiron), 100 MG PO TID Simvastatin (Simvastatin), 20 MG PO HS Tamsulosin HCl (Tamsulosin HCl), 0.4 MG PO HS Scheduled PRN Fexofenadine Hcl (Randa Allergy), 180 MG PO DAILY PRN for Allergy Symptoms Fluticasone Propionate (Nasal) (Flonase Allergy Relief), 2 SPRAYS BRITTON DAILY PRN for Nasal Congestion Levalbuterol (Levalbuterol HCl), 1 VIAL INH TID PRN for Shortness of Breath Allergies Coded Allergies: Penicillins (Verified Allergy, Intermediate, RASH, 06/10/17) Clindamycin (Verified Allergy, Unknown, UNKNOWN, 06/10/17) Clonazepam (Verified Adverse Reaction, Severe, hallucinations, 07/04/17) Mirabegron (Verified Adverse Reaction, Severe, DELIRIUM, 06/10/17) Confusion, slurred speech Morphine (Verified Adverse Reaction, Intermediate, mental status change, ) Tramadol (Verified Adverse Reaction, Intermediate, confusion diff sleeping , 07/04/17) Lorazepam (Verified Adverse Reaction, Mild, ATIVAN AT NIGHT DISORIENTED, ) Oxycodone (Verified Adverse Reaction, Mild, CONFUSION, 06/10/17) Physical Exam Vital Signs Date Time Temp Pulse Resp B/P (MAP) Pulse Ox O2 Delivery O2 Flow Rate FiO2 07/23/17 21:10 100 07/23/17 21:02 98 20 142/72 97 Nasal Cannula 3.0 07/23/17 19:53 97 Nasal Cannula 3.0 07/23/17 19:27 37.2 101 20 161/77 94 Room Air Physical Exam General: Chronically-ill appearing older male in no acute distress. Awake, but confused, answers some questions appropriately, but most he does not. He is alert to place and person. HEENT: Normal cephalic atraumatic. Pupils are equal round and reactive to light. Extraocular movements are intact. Oropharynx is pink with moist mucous membranes. No swelling of the mouth lips or tongue. Neck: Supple with a midline trachea. No meningeal signs or stiffness, no JVD or bruits. No Stridor. Chest: Clear to auscultation bilaterally. No wheezes or rhonchi. No increased work of breathing. Heart: Paced rhythm and mildly tachycardic. Abdomen: Soft nontender, nondistended without rebound guarding or rigidity. Extremities: No cyanosis clubbing or edema. No calf tenderness or assymetry Spine/Back. Non tender to palpation. No CVA tenderness Skin: Good turgor without rashes. Neurologic exam: Cranial nerves two through 12 are intact. Motor and sensation are intact and symmetrical throughout. Medical Decision & Procedures ER Provider Diagnostic Interpretation: Radiology results as stated below per my review and radiologist interpretation: CT SCAN OF THE ABDOMEN AND PELVIS WITHOUT CONTRAST CLINICAL HISTORY: Flank pain. Possible obstruction. COMPARISON STUDY: 07/03/2016 TECHNIQUE: CT scan of the abdomen and pelvis was performed from the lung bases to the proximal femurs. Images are reviewed in the axial, sagittal, and coronal planes. IV contrast was not administered for this examination. A dose lowering technique was utilized adhering to the principles of ALARA. CT DOSE: 2052.63 mGy.cm FINDINGS: Lower chest: There are persistent but slightly smaller bilateral pleural effusions. There are associated bibasal atelectatic changes. There is no pericardial effusion. Liver: The unenhanced liver is normal in size, contour, and attenuation. There is no intrahepatic biliary ductal dilatation. Gallbladder: Surgically absent Spleen: Mildly enlarged measuring 14 cm Pancreas: Unremarkable. Adrenal glands: There is stable left adrenal gland thickening Kidneys: There is a 7 mm lower pole left renal calculus. There are 2 lower pole right renal calculi the largest of which measures 4 mm. There is mild bilateral hydronephrosis and hydroureter. No ureteral calculi are visualized. There is bilateral perinephric stranding left greater than right. There is a 15 mm right renal cyst. Bowel: There are no transition zones indicate bowel obstruction. The appendix appears normal. There is diverticulosis. There is no evidence of acute diverticulitis. Peritoneum: There is no intraperitoneal free air or abdominal ascites. Vasculature: The abdominal aorta is normal in course and caliber. The left renal artery stent is visualized. Adenopathy: None. Pelvic viscera: The bladder was not well-distended. There is bladder wall thickening. There is mild infiltration of the perivesical fat. Prostatic calcifications are visualized. Skeletal structures: No destructive osseous lesions are seen. IMPRESSION: 1. Bilateral pleural effusions with bibasal atelectasis 2. Bilateral hydronephrosis and bilateral hydroureter. Perinephric and periureteral stranding. No ureteral calculi are visualized. Correlation for evidence of urinary tract infection is recommended. 3. No evidence of bowel obstruction. No evidence of free air 4. Diverticulosis. No evidence of acute diverticulitis 5. Normal appendix 6. Stranding of perivesical fat. 7. Bilateral nephrolithiasis Electronically signed by: Lazarus Abbott M.D. 07/23/2017 8:55 PM Dictated Date/Time: 07/23/2017 8:47 PM CHEST ONE VIEW PORTABLE CLINICAL HISTORY: Sepsis COMPARISON STUDY: 03/24/2017 FINDINGS: The heart is mildly enlarged. There is a left subclavian dual-chamber central venous pacemaker present. There is no acute parenchymal consolidation. There is no overt failure. There is minor basilar atelectasis. Small pleural effusions are suspected.[ The previously identified right midlung zone pulmonary nodule is difficult to visualize on the current study. IMPRESSION: Cardiomegaly and suspected small pleural effusions. No evidence of acute parenchymal consolidation. Electronically signed by: Lazarus Abbott M.D. 07/23/2017 8:36 PM Dictated Date/Time: 07/23/2017 8:[address] HEAD WITHOUT CONTRAST (CT) CLINICAL HISTORY: Altered level of consciousness COMPARISON STUDY: 11/01/2016 TECHNIQUE: Axial CT of the brain is performed from the vertex to the skull base. IV contrast was not administered for this examination. A dose lowering technique was utilized adhering to the principles of ALARA. CT DOSE: 2576.47 mGy.cm FINDINGS: No intra or extra-axial mass lesions are visualized. There is no CT evidence of acute cortical infarction. There is no evidence of midline shift. There is no acute hemorrhage. No calvarial fractures are visualized. There are minor white matter hypodensities likely on a small vessel basis. There is no evidence of pathologic ventricular dilatation. There is no evidence of acute sinusitis. There are postsurgical changes present within the paranasal sinuses IMPRESSION: No acute intracranial findings Electronically signed by: Lazarus Abbott M.D. 07/23/2017 8:30 PM Dictated Date/Time: 07/23/2017 8:29 PM Laboratory Results 07/23/17 19:35 Red Blood Count 3.77, Mean Corpuscular Volume 89.7, Mean Corpuscular Hemoglobin 28.6, Mean Corpuscular Hemoglobin Concent 32.0, Mean Platelet Volume 8.5, Neutrophils (%) (Auto) 82.7, Lymphocytes (%) (Auto) 6.7, Monocytes (%) (Auto) 8.0, Eosinophils (%) (Auto) 1.6, Basophils (%) (Auto) 0.1, Neutrophils # (Auto) 6.26, Lymphocytes # (Auto) 0.51, Monocytes # (Auto) 0.61, Eosinophils # (Auto) 0.12, Basophils # (Auto) 0.01 07/23/17 19:35 Test 07/23/17 19:35 07/23/17 19:38 07/23/17 19:44 07/23/17 20:52 White Blood Count 7.58 K/uL (4.8-10.8) Red Blood Count 3.77 M/uL (4.7-6.1) Hemoglobin 10.8 g/dL (14.0-18.0) Hematocrit 33.8 % (42-52) Mean Corpuscular Volume 89.7 fL (80-100) Mean Corpuscular Hemoglobin 28.6 pg (25-34) Mean Corpuscular Hemoglobin Concent 32.0 g/dl (32-36) Platelet Count 179 K/uL (130-400) Mean Platelet Volume 8.5 fL (7.4-10.4) Neutrophils (%) (Auto) 82.7 % Lymphocytes (%) (Auto) 6.7 % Monocytes (%) (Auto) 8.0 % Eosinophils (%) (Auto) 1.6 % Basophils (%) (Auto) 0.1 % Neutrophils # (Auto) 6.26 K/uL (1.4-6.5) Lymphocytes # (Auto) 0.51 K/uL (1.2-3.4) Monocytes # (Auto) 0.61 K/uL (0.11-0.59) Eosinophils # (Auto) 0.12 K/uL (0-0.5) Basophils # (Auto) 0.01 K/uL (0-0.2) RDW Standard Deviation 47.9 fL (36.4-46.3) RDW Coefficient of Variation 14.7 % (11.5-14.5) Immature Granulocyte % (Auto) 0.9 % Immature Granulocyte # (Auto) 0.07 K/uL (0.00-0.02) Red Blood Cell Morphology Unremarkable Anion Gap 8.0 mmol/L (3-11) Est Creatinine Clear Calc Drug Dose 19.3 ml/min Estimated GFR () 20.5 Estimated GFR (Non- 17.7 BUN/Creatinine Ratio 11.7 (10-20) Bedside Glucose 221 mg/dl (70-99) Calcium Level 8.6 mg/dl (8.5-10.1) Total Bilirubin 0.3 mg/dl (0.2-1) Aspartate Amino Transf (AST/SGOT) 11 U/L (15-37) Alanine Aminotransferase (ALT/SGPT) 13 U/L (12-78) Alkaline Phosphatase 111 U/L (45-117) Total Protein 6.8 gm/dl (6.4-8.2) Albumin 2.5 gm/dl (3.4-5.0) Globulin 4.3 gm/dl (2.5-4.0) Albumin/Globulin Ratio 0.6 (0.9-2) Bedside Lactic Acid Venous 2.23 mmol/L (0.90-1.70) Bedside Troponin I < 0.030 ng/ml (0-0.045) Urine Color YELLOW Urine Appearance TURBID (CLEAR) Urine pH 6.5 (4.5-7.5) Urine Specific Dawson 1.011 (1.000-1.030) Urine Protein 2+ (NEG) Urine Glucose (UA) 1+ (NEG) Urine Ketones NEG (NEG) Urine Occult Blood 2+ (NEG) Urine Nitrite NEG (NEG) Urine Bilirubin NEG (NEG) Urine Urobilinogen NEG (NEG) Urine Leukocyte Esterase LARGE (NEG) Urine WBC (Auto) >30 /hpf (0-5) Urine RBC (Auto) 10-30 /hpf (0-4) Urine Hyaline Casts (Auto) 1-5 /lpf (0-5) Urine Epithelial Cells (Auto) >30 /lpf (0-5) Urine Bacteria (Auto) NEG (NEG) Urine Pathogenic Casts /lpf (0) Urine Yeast (Auto) BUD W/ HYPHAE (NONE PRSENT) Laboratory studies as stated above per my review. Medications Administered Medications (Trade) Dose Ordered Sig/Tonia Route Start Time Stop Time Status Last Admin Dose Admin Ciprofloxacin/ Dextrose (Cipro / D5W) 400 mg NOW STAT IV 07/23/17 19:57 07/23/17 19:59 DC 07/23/17 20:56 400 MG Sodium Chloride 1,000 ml @ 999 mls/hr Q1H1M STAT IV 07/23/17 19:57 07/23/17 20:57 DC 07/23/17 20:56 999 MLS/HR Sodium Chloride 1,000 ml @ 150 mls/hr Q6H40M ONCE IV 07/23/17 19:57 07/23/17 23:08 DC 07/23/17 22:06 150 MLS/HR Ondansetron HCl (Zofran Inj) 4 mg Q6H PRN IV 07/23/17 22:00 08/22/17 21:59 07/23/17 23:14 4 MG ECG Per My Interpretation Indication: altered mental status Rate (beats per minute): 106 Rhythm: other (Ventriculalry paced rhythm) Findings: paced rhythm, other (No JANELL/STD, No PVCs) Comparison ECG Date: 10/10/2016 Change: no significant change ED Course 1901: Past medical records reviewed. The patient was evaluated in room A3, and a complete history and physical examination were performed. 1956: Ordered Sodium Chloride 1000 mL @ 150 mL/hr IV, Sodium Chloride 1000 mL @ 999 mL/hr IV, Cipro 400 mg IV. 1958: I discussed the case with the patient's at this time. She is in agreement with the treatment plan. 2144: I discussed the case with Dr. Rodney - Urologist. He suggests delivering antibiotics, hydration, and admitting to the hospitalist. 2157: I discussed the case with Dr. Linda Treadwell at this time. He will evaluate the patient for further treatment. Medical Decision Differential diagnosis includes; sepsis, UTI, electrolyte or metabolic abnormality, cardiac disease, trauma, medication side effect. This patient comes in as described above. He does have a complex medical history. He has had chronic urinary problems. According to his , he has been more shaky and agitated and more confused. He is afebrile here. He is more confused and agitated. IV access established blood work was obtained including blood cultures. His lactic acid is mildly elevated but he is afebrile. He has no fever. Chest x-ray was unremarkable urinalysis does suggest a UTI. He was given Cipro 400 mg IV. He was hydrated with IV normal saline bolus. His BUN and creatinine are somewhat elevated compared to baseline his creatinine is 3 up from the low 2 range. CAT scan of his head is unremarkable. CAT scan of his abdomen shows bilateral dilation of the kidneys and ureters. I did discuss this with Dr. Roman Rodney and he does not feel the patient needs any acute intervention tonight with exception of hydration, antibiotics, and possibly a Cantu although the patient is urinating adequately. He feels a Cantu however will be more problems for this patient knowing him then help. The patient will be admitted for possible infection altered mental status and further treatment and evaluation. Dr. Kenney saw him in the ER for these measures. Medication Reconcilliation Current Medication List: was personally reviewed by me Blood Pressure Screening Patient's blood pressure: Elevated blood pressure Referred to Hospitalist Consults Time Called: 2138 Consulting Physician: Dr. Rashaun Meyer Urologgeoff Returned Call: 2144 I discussed the case with Dr. Rashaun Bernal. He suggests delivering antibiotics, hydration, and admitting to the hospitalist. Additional Consults: Time Called: 2155 Consulted Physician: Dr. Linda Treadwell Returned Call: 2157 Additional Comments: I discussed the case with Dr. Linda Treadwell at this time. He will evaluate the patient for further treatment. Impression Primary Impression: Altered mental status Additional Impression: UTI (urinary tract infection) Scribe Attestation The scribe's documentation has been prepared under my direction and personally reviewed by me in its entirety. I confirm that the note above accurately reflects all work, treatment, procedures, and medical decision making performed by me. Departure Information Dispostion Being Evaluated By Hospitalist Referrals Daniel Guerra D.O. (PCP) Patient Instructions My [facility] Problem Qualifiers
[2017-07-24] MEDS: SODIUM CHLORIDE 0.9% 1000ML 1,000 ML IV SCH ×3 (05:30→20:38)
[2017-07-24 06:18] LABS: INR 1.1 (0.9-1.1)
--- NOTE | 2017-07-24 06:25 | HISTORY & PHYSICAL EXAMINATION ---
DATE OF ADMISSION: 07/23/2017 PRIMARY CARE PROVIDER: Dr. Guerra. CHIEF COMPLAINT: Acute confusion since this morning and back pain for the last 5 days. HISTORY OF PRESENT COMPLAINT: He is an 82-year-old male with complicated past medical history including recurrent UTI, coronary atherosclerosis, cardiac pacemaker in situ, COPD, long-term use of anticoagulation in the past, ischemic cardiomyopathy, type 2 diabetes, systolic heart failure, chronic kidney disease stage III, general osteoarthritis, esophageal stricture with reflux, benign neoplasm of colon, carcinoma of the lung nonsmall cell, benign neoplasm of the adrenal gland. DICTATION ENDS HERE
[2017-07-24] MEDS: HEPARIN SOD 5000 UNIT/0.5 ML CARP SQ SCH ×3 (06:31→20:40)
[2017-07-24 06:49] LABS: CREATININE 2.65 mg/dl (0.60-1.40)
[2017-07-24] MEDS: PENTOSAN POLYSULFATE SODIUM 100 MG CAP PO SCH ×3 (08:07→20:38)
[2017-07-24] MEDS: CYANOCOBALAMIN 500 MCG TAB (VIT B-12) PO SCH (08:08)
[2017-07-24] MEDS: METOPROLOL SUCC 25MG EXT REL TAB PO SCH (08:08)
[2017-07-24] MEDS: FINASTERIDE 5 MG TAB PO SCH (08:08)
[2017-07-24] MEDS: ASPIRIN 81 MG ECTAB PO SCH (08:09)
[2017-07-24] MEDS: CHOLECALCIFEROL 1000 INTER.UNIT TAB PO SCH (08:10)
[2017-07-24] MEDS: ISOSORBIDE MONONITRATE 30 MG TABCR PO SCH (08:10)
[2017-07-24] MEDS: PANTOprazole SOD 40 MG TAB PO SCH (08:10)
[2017-07-24 09:51] LABS: CALCIUM 8.2 mg/dl (8.5-10.1); CREATININE 2.8 mg/dl (0.60-1.40); PHOSPHORUS 3.1 mg/dl (2.5-4.9); POTASSIUM 5.2 mmol/L (3.5-5.1)
[2017-07-24] MEDS ORDERED: LIDOCAINE HCL 2% JELLY 30 ML TUBE EXT PRN (11:00)
--- NOTE | 2017-07-24 11:09 | Urology Consultation ---
History General Date of Service: Jul 24, 2017. Chief Complaint: AMS Primary Care Physician: Daniel Guerra D.O. Pt seen a urologist before?: Yes (Dr. Roman Rodney) If yes, why?: chronic prostatititis and bladder pain History of Present Illness 82 yo male with hx of nephrolithiasis, chronic pelvic pain, bladder pain, and chronic prostatitis presents to [facility] with AMS. Pt ? slightly confused this morning, but immediately knew who I was upon entering the room. He is oriented to place, but seems confused about the details about how he arrived here and where his is today. Barker catheter in place draining clear, yellow urine. He c/o penile pain with the barker in place. Noted to have some yellow discharge around the penis and barker. Cr on admission noted to be 3.09. Improved to 2.65 after admission, but now up to 2.80 this morning. He has baseline CKD stage III with a baseline Cr of 2.1. CT scan upon admission showing bilateral hydronephrosis with dilation of the ureters down to the level of the bladder. No evidence for ureteral stones. He is currently afebrile. White count is normal. Blood and urine cultures pending. Imaging Imaging: CT Laboratory Last 24 Hours Test 07/23/17 19:35 07/23/17 19:38 07/23/17 19:44 07/23/17 20:52 White Blood Count 7.58 K/uL Red Blood Count 3.77 M/uL Hemoglobin 10.8 g/dL Hematocrit 33.8 % Mean Corpuscular Volume 89.7 fL Mean Corpuscular Hemoglobin 28.6 pg Mean Corpuscular Hemoglobin Concent 32.0 g/dl Platelet Count 179 K/uL Mean Platelet Volume 8.5 fL Neutrophils (%) (Auto) 82.7 % Lymphocytes (%) (Auto) 6.7 % Monocytes (%) (Auto) 8.0 % Eosinophils (%) (Auto) 1.6 % Basophils (%) (Auto) 0.1 % Neutrophils # (Auto) 6.26 K/uL Lymphocytes # (Auto) 0.51 K/uL Monocytes # (Auto) 0.61 K/uL Eosinophils # (Auto) 0.12 K/uL Basophils # (Auto) 0.01 K/uL RDW Standard Deviation 47.9 fL RDW Coefficient of Variation 14.7 % Immature Granulocyte % (Auto) 0.9 % Immature Granulocyte # (Auto) 0.07 K/uL Red Blood Cell Morphology Unremarkable Sodium Level 137 mmol/L Potassium Level 4.7 mmol/L Chloride Level 104 mmol/L Carbon Dioxide Level 26 mmol/L Anion Gap 8.0 mmol/L Blood Urea Nitrogen 36 mg/dl Creatinine 3.09 mg/dl Est Creatinine Clear Calc Drug Dose 19.3 ml/min Estimated GFR () 20.5 Estimated GFR (Non- 17.7 BUN/Creatinine Ratio 11.7 Bedside Glucose 221 mg/dl Random Glucose 228 mg/dl Calcium Level 8.6 mg/dl Total Bilirubin 0.3 mg/dl Aspartate Amino Transf (AST/SGOT) 11 U/L Alanine Aminotransferase (ALT/SGPT) 13 U/L Alkaline Phosphatase 111 U/L Total Protein 6.8 gm/dl Albumin 2.5 gm/dl Globulin 4.3 gm/dl Albumin/Globulin Ratio 0.6 Bedside Lactic Acid Venous 2.23 mmol/L Bedside Troponin I < 0.030 ng/ml Urine Color YELLOW Urine Appearance TURBID Urine pH 6.5 Urine Specific [place] 1.011 Urine Protein 2+ Urine Glucose (UA) 1+ Urine Ketones NEG Urine Occult Blood 2+ Urine Nitrite NEG Urine Bilirubin NEG Urine Urobilinogen NEG Urine Leukocyte Esterase LARGE Urine WBC (Auto) >30 /hpf Urine RBC (Auto) 10-30 /hpf Urine Hyaline Casts (Auto) 1-5 /lpf Urine Epithelial Cells (Auto) >30 /lpf Urine Bacteria (Auto) NEG Urine Pathogenic Casts /lpf Urine Yeast (Auto) BUD W/ HYPHAE Test 07/24/17 01:31 07/24/17 05:20 07/24/17 05:26 Lactic Acid Level 0.9 mmol/L Prothrombin Time 11.2 SECONDS Prothromb Time International Ratio 1.1 Creatinine 2.65 mg/dl 2.80 mg/dl Est Creatinine Clear Calc Drug Dose 25.0 ml/min 23.6 ml/min Estimated GFR () 24.7 23.1 Estimated GFR (Non- 21.3 20.0 Sodium Level 141 mmol/L Potassium Level 5.2 mmol/L Chloride Level 111 mmol/L Carbon Dioxide Level 25 mmol/L Anion Gap 5.0 mmol/L Blood Urea Nitrogen 35 mg/dl BUN/Creatinine Ratio 12.5 Random Glucose 150 mg/dl Calcium Level 8.2 mg/dl Phosphorus Level 3.1 mg/dl Magnesium Level 1.6 mg/dl Problem List Medical Problems: (1) Altered mental status Status: Acute (2) Altered mental status Status: Acute (3) Altered mental status Status: Acute (4) Altered mental status Status: Acute (5) Change in mental status Status: Acute (6) Confusion Status: Acute (7) Dehydration Status: Acute (8) Failure of outpatient treatment Status: Acute (9) Insomnia Status: Acute (10) Penile pain Status: Acute (11) TIA (transient ischemic attack) Status: Acute (12) UTI (urinary tract infection) Status: Acute (13) Weakness Status: Acute (14) Weakness Status: Acute Past History anxiety, arthritis, BPH, cancer - lung (non-small cell), cancer - skin, congestive heart failure, COPD, coronary artery disease, depression, diabetes, GERD, heart disease, high cholesterol, hypertension, kidney stones, osteoarthritis, pneumonia, renal disease (CKD stage III), urinary tract infection, other (lumbar degenerative disc disease ) Past Surgical History: angioplasty with stent, cholecystectomy, orthopedic surgery, pacemaker, sinus surgery, TKR, other (bronchoscopy with biopsy, s/p chest tube drainage, sinus surgery ) Family History Cardiac disorder FATHER BROTHER SISTER Diabetes mellitus BROTHER SISTER Hypertension FATHER SISTER Social History Hx Tobacco Use In Past Year?: No (Quit 45 yrs ago;smoked 30yrs;) Smoking: non-smoker Alcohol: never, no current use Marital status: Housing status: lives with family Occupation status: retired Immunizations History of Influenza Vaccine: Yes Influenza Vaccine Date: Feb 09, 2015 History of Tetanus Vaccine?: Yes Tetanus Immunization Date: Jan 30, 2008 History of Pneumococcal: Yes Pneumococcal Date: Sep 16, 2014 History of MDRO No Allergies Coded Allergies: Penicillins (Verified Allergy, Intermediate, RASH, 06/10/17) Clindamycin (Verified Allergy, Unknown, UNKNOWN, 06/10/17) Clonazepam (Verified Adverse Reaction, Severe, hallucinations, 07/04/17) Mirabegron (Verified Adverse Reaction, Severe, DELIRIUM, 06/10/17) Confusion, slurred speech Morphine (Verified Adverse Reaction, Intermediate, mental status change, ) Tramadol (Verified Adverse Reaction, Intermediate, confusion diff sleeping , 07/04/17) Lorazepam (Verified Adverse Reaction, Mild, ATIVAN AT NIGHT DISORIENTED, ) Oxycodone (Verified Adverse Reaction, Mild, CONFUSION, 06/10/17) Medications Home Medications: Home Meds and Scripts Medications Dose Route/Sig Max Daily Dose Days Date Category Escitalopram Oxalate 20 Mg Tab 20 Mg PO DAILY 07/23/17 Reported Aspirin Ec (Aspirin) 81 Mg Tab 81 Mg PO DAILY 07/23/17 Reported Gabapentin 100 Mg Cap 200 Mg PO HS 07/23/17 Reported Glucotrol Xl (Glipizide) 5 Mg Tab 5 Mg PO DAILY 07/23/17 Reported D3-1000 (Cholecalciferol) 1,000 Unit Cap 2,000 Inter.unit PO DAILY 07/23/17 Reported Finasteride 5 Mg Tab 5 Mg PO DAILY 07/23/17 Reported Pantoprazole Sodium (Pantoprazole) 40 Mg Tab 40 Mg PO DAILY 07/23/17 Reported Furosemide 20 Mg Tab 20 Mg PO DAILY 07/23/17 Reported Metoprolol Succinate ER (Metoprolol Succinate) 25 Mg Tabcr 25 Mg PO DAILY 07/23/17 Reported Randa Allergy (Fexofenadine Hcl) 180 Mg Tab 180 Mg PO DAILY PRN 05/03/17 Reported Elmiron (Pentosan Polysulfate Sodium) 100 Mg Cap 100 Mg PO TID 05/03/17 Reported Vitamin B12 (Cyanocobalamin) 1,000 Mcg Tab 1,000 Mcg PO DAILY 05/03/17 Reported Simvastatin 20 Mg Tab 20 Mg PO HS 04/11/16 Reported Isosorbide Mononitrate ER (Isosorbide Mononitrate) 30 Mg Tabcr 30 Mg PO QAM 04/11/16 Reported Tamsulosin HCl 0.4 Mg Cap 0.4 Mg PO HS 04/11/16 Reported Levalbuterol HCl (Levalbuterol) 1.25 Mg/3 Ml Nebu 1 Vial INH TID PRN 07/14/15 Reported Atrovent 0.02% Soln (Ipratropium [place]) 2.5 Ml Nebu 2.5 Ml NEB QID 06/26/15 Reported Flonase Allergy Relief (Fluticasone Propionate (Nasal)) 50 Mcg/Act Spr 2 Sprays BRITTON DAILY PRN 01/05/15 Reported Inpatient Medications: Current Inpatient Medications Medications (Trade) Dose Ordered Sig/Tonia Route Start Time Stop Time Status Last Admin Dose Admin Heparin Sodium (Porcine) (Heparin Sq 5000 Unit/0.5ml) 5,000 unit Q8 SQ 07/24/17 06:00 08/23/17 05:59 07/24/17 06:31 5,000 UNIT Sodium Chloride 1,000 ml @ 100 mls/hr Q10H IV 07/23/17 23:59 08/22/17 23:58 07/24/17 05:30 150 MLS/HR Ondansetron HCl (Zofran Inj) 4 mg Q6H PRN IV 07/23/17 22:00 08/22/17 21:59 07/23/17 23:14 4 MG Aspirin (Ecotrin Tab) 81 mg DAILY PO 07/24/17 09:00 08/23/17 08:59 07/24/17 08:09 81 MG Fexofenadine HCl (Randa Tab) 180 mg DAILY PRN PO 07/23/17 22:15 08/22/17 22:14 Finasteride (Proscar Tab) 5 mg DAILY PO 07/24/17 09:00 08/23/17 08:59 07/24/17 08:08 5 MG Fluticasone Propionate (Flonase Nasal [place]) 2 sprays DAILY PRN BRITTON 07/23/17 22:15 08/22/17 22:14 Gabapentin (Neurontin Cap) 200 mg HS PO 07/24/17 21:00 08/23/17 20:59 Isosorbide Mononitrate (Imdur Ext Rel Tab) 30 mg QAM PO 07/24/17 09:00 08/23/17 08:59 07/24/17 08:10 30 MG Metoprolol Succinate (Toprol Xl Tab) 25 mg DAILY PO 07/24/17 09:00 08/23/17 08:59 07/24/17 08:08 25 MG Pantoprazole Sodium (Protonix Tab) 40 mg DAILY PO 07/24/17 09:00 08/23/17 08:59 07/24/17 08:10 40 MG Simvastatin (Zocor Tab) 20 mg HS PO 07/24/17 21:00 08/23/17 20:59 Tamsulosin HCl (Flomax Cap) 0.4 mg HS PO 07/24/17 21:00 08/23/17 20:59 Cholecalciferol (Vitamin D Tab) 2,000 inter.unit DAILY PO 07/24/17 09:00 08/23/17 08:59 07/24/17 08:10 2,000 INTER.UNIT Cyanocobalamin (Vitamin B-12 Tab) 1,000 mcg DAILY PO 07/24/17 09:00 08/23/17 08:59 07/24/17 08:08 1,000 MCG Glipizide (GlipiZIDE EXTENDED REL TAB) 5 mg DAILY PO 07/24/17 09:00 08/23/17 08:59 07/24/17 08:09 5 MG Pentosan Polysulfate Sodium (Elmiron) 100 mg TID PO 07/24/17 09:00 08/23/17 08:59 07/24/17 08:07 100 MG Ciprofloxacin/ Dextrose 400 mg/ Prmx 200 ml @ 100 mls/hr Q24H IV 07/24/17 21:00 08/01/17 22:59 Ipratropium [place] (Atrovent 0.02% 0.5MG/2.5ML Neb) 0.5 mg QID PRN INH 07/23/17 22:45 08/22/17 22:44 Levalbuterol (Xopenex 1.25MG/ 3ML Neb) 1.25 mg TID PRN INH 07/23/17 22:45 08/22/17 22:44 Ciprofloxacin (Consult) 1 ea UD PRN N/A 07/24/17 00:15 08/23/17 00:14 Review of Systems Review of Systems Constitutional: No fever, No chills Eyes: No double vision Neurological: No dizzy Endocrine: No excessive thirst Gastrointestinal: No abdominal pain, No nausea, No vomiting Cardiovascular: No chest pain Respiratory: No shortness of breath Skin: No rash Musculoskeletal: No back pain Male : + kidney stones, No blood in urine Physical Exam Vital Signs: Vital Signs Past 12 Hours Date Time Temp Pulse Resp B/P (MAP) Pulse Ox O2 Delivery O2 Flow Rate FiO2 07/24/17 07:43 36.9 79 20 100/44 (62) 96 Nasal Cannula 2.0 07/24/17 04:25 37.7 84 18 117/73 (88) 97 07/24/17 04:00 95 Nasal Cannula 2.0 07/24/17 00:00 95 Nasal Cannula 2.0 07/23/17 23:25 37.2 94 20 111/71 94 Nasal Cannula 2.0 Physical Exam: General Appearance: no apparent distress Eyes: bilateral eyes normal inspection ENT: hearing grossly normal Neck: no JVD Respiratory/Chest: no respiratory distress, no accessory muscle use Cardiovascular: no JVD Extremities: normal inspection Neurologic/Psychiatric: alert, normal mood/affect, oriented x 3 Skin: normal color Assessment & Plan Assessment & Plan A/P: Chronic pelvic pain, chronic prostatitis, chronic bladder pain, bilateral hydronephrosis AFVSS. CT reviewed with Dr. Rodney this morning. Will observe bilateral hydronephrosis , and continue to monitor Cr for now. The pt is unlikely to tolerate stent placement give his chronic bladder pain. Consider repeating a renal u/s in a few days to weeks to monitor for improvement. Would only need urgent stent placement if he were to decompensate, have worsening renal failure, or high fevers. Recommend removing barker catheter for pain if OK with primary service. Unfortunately Mr. Almendarez has been a complicated case for pain control over the years. I will order Lidocaine jelly for barker discomfort for now. Currently he undergoes intermittent cysto with fulguration with Dr. Rodney as an outpatient approximately every 6 weeks, which has helped with his bladder pain in the past. He reports his last fulguration only helped for 5 days with pain control though. Supportive management with Pyridium and B&O suppositories are possibilities. Would consider consulting pain management if pt continues to have pain as we have exhausted most therapies as an outpatient. Continue Flomax and finasteride. Continue Cipro pending culture sensitivities. Recommend washing penis twice daily with soap and water and pulling foreskin back down over the glans. Mr. Almendarez remains a complicated case. Thanks for the consult. Will continue to follow along with primary service.
--- NOTE | 2017-07-24 11:22 | Medical Student: [facility] ---
Consultation Date of Consultation: Jul 24, 2017. Requesting Physician: Dr Kenney Attending Physician: Dr. Kenney Reason for Consultation: Bilateral hydronephrosis and ureteral dilation, with chronic penis pain. History of Present Illness Nathen is a 82 year old Male, with a signficant past medical history including nonsmall cell lung ca, ischemic cardiomyopathy, DM, COPD, CKD Stage III. He presented to the ED last evening (07/23/17 at 1900) for complaint of new chills and mental status changes, with associated back pain x5 days. He also complains of urinary incontinence and voiding small amounts of malodorous urine. CT abd/pelvis reveals bilateral hydronephrosis L>R and bilateral ureteral dilation, no evidence of ureteral stones. Currently afebrile, normal WBC. No signs of sepsis. Awaiting urine culture, started on cipro IV for possible UTI coverage. Past Medical/Surgical History Medical History: nonsmall cell lung CA, CAD, ischemic cardiomyopathy with BiV pacer, severe COPD , DM, CKD III, OA, and bladder dysfunction Surgical History: Arthroscopy of right knee, bronchoscopy for biopsy, cystoscopy for severe prostatitis, cystectomy, sinus surgery, pacemaker placement Family History Mother at 52 - stroke Father - DM complications Sister - DM complications and lung CA Social History Smoking Status: Former Smoker (2.5 pack per day for 30 years) History of Alcohol Use: No (Quit 25 yrs ago) Drug Use: none Marital Status: Housing Status: lives with family Occupation Status: retired Review of Systems Constitutional: No fever, No chills Respiratory: No cough, No shortness of breath Cardiac: No chest pain Abdomen: No pain Musculoskeletal: No joint pain Male : + dysuria, + problem reported (catheter in place, chronic penile pain ) Neurologic: + memory loss Endo: No fatigue Allergies Coded Allergies: Penicillins (Verified Allergy, Intermediate, RASH, 06/10/17) Clindamycin (Verified Allergy, Unknown, UNKNOWN, 06/10/17) Clonazepam (Verified Adverse Reaction, Severe, hallucinations, 07/04/17) Mirabegron (Verified Adverse Reaction, Severe, DELIRIUM, 06/10/17) Confusion, slurred speech Morphine (Verified Adverse Reaction, Intermediate, mental status change, ) Tramadol (Verified Adverse Reaction, Intermediate, confusion diff sleeping , 07/04/17) Lorazepam (Verified Adverse Reaction, Mild, ATIVAN AT NIGHT DISORIENTED, ) Oxycodone (Verified Adverse Reaction, Mild, CONFUSION, 06/10/17) Medications Current Inpatient Medications Medications (Trade) Dose Ordered Sig/Tonia Route Start Time Stop Time Status Last Admin Dose Admin Heparin Sodium (Porcine) (Heparin Sq 5000 Unit/0.5ml) 5,000 unit Q8 SQ 07/24/17 06:00 08/23/17 05:59 07/24/17 06:31 5,000 UNIT Sodium Chloride 1,000 ml @ 100 mls/hr Q10H IV 07/23/17 23:59 08/22/17 23:58 07/24/17 05:30 150 MLS/HR Ondansetron HCl (Zofran Inj) 4 mg Q6H PRN IV 07/23/17 22:00 08/22/17 21:59 07/23/17 23:14 4 MG Aspirin (Ecotrin Tab) 81 mg DAILY PO 07/24/17 09:00 08/23/17 08:59 07/24/17 08:09 81 MG Fexofenadine HCl (Randa Tab) 180 mg DAILY PRN PO 07/23/17 22:15 08/22/17 22:14 Finasteride (Proscar Tab) 5 mg DAILY PO 07/24/17 09:00 08/23/17 08:59 07/24/17 08:08 5 MG Fluticasone Propionate (Flonase Nasal [place]) 2 sprays DAILY PRN BRITTON 07/23/17 22:15 08/22/17 22:14 Gabapentin (Neurontin Cap) 200 mg HS PO 07/24/17 21:00 08/23/17 20:59 Isosorbide Mononitrate (Imdur Ext Rel Tab) 30 mg QAM PO 07/24/17 09:00 08/23/17 08:59 07/24/17 08:10 30 MG Metoprolol Succinate (Toprol Xl Tab) 25 mg DAILY PO 07/24/17 09:00 08/23/17 08:59 07/24/17 08:08 25 MG Pantoprazole Sodium (Protonix Tab) 40 mg DAILY PO 07/24/17 09:00 08/23/17 08:59 07/24/17 08:10 40 MG Simvastatin (Zocor Tab) 20 mg HS PO 07/24/17 21:00 08/23/17 20:59 Tamsulosin HCl (Flomax Cap) 0.4 mg HS PO 07/24/17 21:00 08/23/17 20:59 Cholecalciferol (Vitamin D Tab) 2,000 inter.unit DAILY PO 07/24/17 09:00 08/23/17 08:59 07/24/17 08:10 2,000 INTER.UNIT Cyanocobalamin (Vitamin B-12 Tab) 1,000 mcg DAILY PO 07/24/17 09:00 08/23/17 08:59 07/24/17 08:08 1,000 MCG Glipizide (GlipiZIDE EXTENDED REL TAB) 5 mg DAILY PO 07/24/17 09:00 08/23/17 08:59 07/24/17 08:09 5 MG Pentosan Polysulfate Sodium (Elmiron) 100 mg TID PO 07/24/17 09:00 08/23/17 08:59 07/24/17 08:07 100 MG Ciprofloxacin/ Dextrose 400 mg/ Prmx 200 ml @ 100 mls/hr Q24H IV 07/24/17 21:00 08/01/17 22:59 Ipratropium [place] (Atrovent 0.02% 0.5MG/2.5ML [facility]) 0.5 mg QID PRN INH 07/23/17 22:45 08/22/17 22:44 Levalbuterol (Xopenex 1.25MG/ 3ML Neb) 1.25 mg TID PRN INH 07/23/17 22:45 08/22/17 22:44 Ciprofloxacin (Consult) 1 ea UD PRN N/A 07/24/17 00:15 08/23/17 00:14 Physical Exam Date Time Temp Pulse Resp B/P (MAP) Pulse Ox O2 Delivery O2 Flow Rate FiO2 07/24/17 07:43 36.9 79 20 100/44 (62) 96 Nasal Cannula 2.0 07/24/17 04:25 37.7 84 18 117/73 (88) 97 07/24/17 04:00 95 Nasal Cannula 2.0 07/24/17 00:00 95 Nasal Cannula 2.0 07/23/17 23:25 37.2 94 20 111/71 94 Nasal Cannula 2.0 07/23/17 22:30 100 20 143/88 95 Nasal Cannula 3.0 07/23/17 21:10 100 07/23/17 21:02 98 20 142/72 97 Nasal Cannula 3.0 07/23/17 19:53 97 Nasal Cannula 3.0 07/23/17 19:27 37.2 101 20 161/77 94 Room Air General Appearance: WD/WN, no apparent distress ENT: hearing grossly normal Neck: no JVD Respiratory: no respiratory distress, no accessory muscle use Cardiovascular: no JVD Abdomen: non tender, soft Musculoskeletal: normal, normal strength (5/5 throughout) Neurologic/Psychiatric: alert, oriented x 3 (generally upset/agitated but understanding of reason for hospitalization ) Skin: warm/dry, + pertinent finding (yellowish discharge from penis) Lymphatic: no adenopathy Laboratory Results Last 24 Hours Test 07/23/17 19:35 07/23/17 19:38 07/23/17 19:44 07/23/17 20:52 White Blood Count 7.58 K/uL Red Blood Count 3.77 M/uL Hemoglobin 10.8 g/dL Hematocrit 33.8 % Mean Corpuscular Volume 89.7 fL Mean Corpuscular Hemoglobin 28.6 pg Mean Corpuscular Hemoglobin Concent 32.0 g/dl Platelet Count 179 K/uL Mean Platelet Volume 8.5 fL Neutrophils (%) (Auto) 82.7 % Lymphocytes (%) (Auto) 6.7 % Monocytes (%) (Auto) 8.0 % Eosinophils (%) (Auto) 1.6 % Basophils (%) (Auto) 0.1 % Neutrophils # (Auto) 6.26 K/uL Lymphocytes # (Auto) 0.51 K/uL Monocytes # (Auto) 0.61 K/uL Eosinophils # (Auto) 0.12 K/uL Basophils # (Auto) 0.01 K/uL RDW Standard Deviation 47.9 fL RDW Coefficient of Variation 14.7 % Immature Granulocyte % (Auto) 0.9 % Immature Granulocyte # (Auto) 0.07 K/uL Red Blood Cell Morphology Unremarkable Sodium Level 137 mmol/L Potassium Level 4.7 mmol/L Chloride Level 104 mmol/L Carbon Dioxide Level 26 mmol/L Anion Gap 8.0 mmol/L Blood Urea Nitrogen 36 mg/dl Creatinine 3.09 mg/dl Est Creatinine Clear Calc Drug Dose 19.3 ml/min Estimated GFR () 20.5 Estimated GFR (Non- 17.7 BUN/Creatinine Ratio 11.7 Bedside Glucose 221 mg/dl Random Glucose 228 mg/dl Calcium Level 8.6 mg/dl Total Bilirubin 0.3 mg/dl Aspartate Amino Transf (AST/SGOT) 11 U/L Alanine Aminotransferase (ALT/SGPT) 13 U/L Alkaline Phosphatase 111 U/L Total Protein 6.8 gm/dl Albumin 2.5 gm/dl Globulin 4.3 gm/dl Albumin/Globulin Ratio 0.6 Bedside Lactic Acid Venous 2.23 mmol/L Bedside Troponin I < 0.030 ng/ml Urine Color YELLOW Urine Appearance TURBID Urine pH 6.5 Urine Specific [place] 1.011 Urine Protein 2+ Urine Glucose (UA) 1+ Urine Ketones NEG Urine Occult Blood 2+ Urine Nitrite NEG Urine Bilirubin NEG Urine Urobilinogen NEG Urine Leukocyte Esterase LARGE Urine WBC (Auto) >30 /hpf Urine RBC (Auto) 10-30 /hpf Urine Hyaline Casts (Auto) 1-5 /lpf Urine Epithelial Cells (Auto) >30 /lpf Urine Bacteria (Auto) NEG Urine Pathogenic Casts /lpf Urine Yeast (Auto) BUD W/ HYPHAE Test 07/24/17 01:31 07/24/17 05:20 07/24/17 05:26 Lactic Acid Level 0.9 mmol/L Prothrombin Time 11.2 SECONDS Prothromb Time International Ratio 1.1 Creatinine 2.65 mg/dl 2.80 mg/dl Est Creatinine Clear Calc Drug Dose 25.0 ml/min 23.6 ml/min Estimated GFR () 24.7 23.1 Estimated GFR (Non- 21.3 20.0 Sodium Level 141 mmol/L Potassium Level 5.2 mmol/L Chloride Level 111 mmol/L Carbon Dioxide Level 25 mmol/L Anion Gap 5.0 mmol/L Blood Urea Nitrogen 35 mg/dl BUN/Creatinine Ratio 12.5 Random Glucose 150 mg/dl Calcium Level 8.2 mg/dl Phosphorus Level 3.1 mg/dl Magnesium Level 1.6 mg/dl Assessment & Plan Nathen presented to ED 07/23 at 1900 then admitted to room 201 for further evaluation of metabolic encephalopathy, GRANT, bilateral hydronephrosis and possible UTI. He is very well known to our practice. APVSS: Bilateral hydronephrosis and dilated ureters down to level of bladder, with no stones visualized. Discussed with Dr. Rodney, conservative treatment for now. No plans for surgical intervention at this time. Would consider if decompensate , febrile or worsening renal failure. Acute on Chronic kidney failure: Labs reviewed, Cr 2.80 (baseline Cr 2.1) Awaiting UC&S results to direct care for UTI Yellowish discharge from penis - wash foreskin and penis BID with soap and water. Complicated chronic pain patient - lidocaine jelly ordered PRN for penile pain. Discussed penile pain with barker catheter with Dr. Rodney - izzyay to discontinue. Consider pyridium and BNO suppositories if discomfort continues. We will continue to monitor with primary service. Thank you for the consultation.
[2017-07-24] MEDS ORDERED: MAGNESIUM OXIDE 400 MG TAB PO ONE (15:00)
--- NOTE | 2017-07-24 17:55 | Progress Note ---
Internal Med Progress Note Date of Service: Jul 24, 2017. Provider Documentation: SUBJECTIVE: denies of any discomfort oriented to person only no fever or chills OBJECTIVE: Vital Signs-as noted below Exam: General-not in apparent distress Eyes-sclera non icteric ENT-moist oral mucosa Neck-no JVD Lungs-diminished, no rales or wheeze Heart-regular S1/S2 Abdomen-soft, non tender Extremities-no edema Neuro-no focal deficit Lab data as noted below. ASSESSMENT & PLAN: CONFUSION/METABOLIC ENCEPHALOPATHY Due to dehydration/urinary tract infection/acute renal failure Continue IV fluids Empiric antibiotic with ciprofloxacin Order for blood and urine culture ACUTE KIDNEY INJURY ON CKD STAGE III Continue with IV fluids Appreciate input from nephrology HYPERKALEMIA Due to above Continue IV fluids Repeat lab shows resolution of hyperkalemia with improvement of creatinine Low potassium diet LOW MAGNESIUM Corrected Follow electrolyte BILATERAL HYDRONEPHROSIS: Appreciate input from neurology No urological procedure is indicated Order to DC Cantu as patient complains increased discomfort UTI: Empiric antibiotic with ciprofloxacin Follow urine culture TYPE 2 DIABETES Hold oral meds Insulin sliding scale CODE STATUS : full code DVT PROPHYLAXIS sub q heparin DISPOSITION to be determined PT/OT eval prior to discharge social service consulted for discharge planning Vital Signs: Date Time Temp Pulse Resp B/P (MAP) Pulse Ox O2 Delivery O2 Flow Rate FiO2 07/25/17 11:06 36.5 79 20 113/58 (76) 92 Room Air 07/25/17 08:00 98 Nasal Cannula 2.0 07/25/17 07:07 37.0 79 20 121/67 (85) 95 Nasal Cannula 2.0 07/25/17 04:00 95 Nasal Cannula 2.0 07/25/17 03:52 36.9 77 18 124/63 (83) 96 07/25/17 00:02 37.0 76 16 137/67 (90) 96 07/24/17 23:59 97 Nasal Cannula 2.0 07/24/17 20:00 Nasal Cannula 2.0 07/24/17 19:44 36.9 68 16 103/54 (70) 97 Room Air 07/24/17 16:00 Nasal Cannula 2.0 07/24/17 15:10 36.6 70 20 127/62 (83) 98 Nasal Cannula 2.0 Lab Results: Results Past 24 Hours Test 07/24/17 21:46 07/25/17 05:33 07/25/17 06:35 07/25/17 07:37 Range/Units Sodium Level 141 141 136-145 mmol/L Potassium Level 4.9 4.8 3.5-5.1 mmol/L Chloride Level 110 113 98-107 mmol/L Carbon Dioxide Level 24 21 21-32 mmol/L Anion Gap 7.0 8.0 3-11 mmol/L Blood Urea Nitrogen 32 29 7-18 mg/dl Creatinine 2.60 2.51 0.60-1.40 mg/dl Est Creatinine Clear Calc Drug Dose 25.4 26.6 ml/min Estimated GFR () 25.3 26.4 Estimated GFR (Non- 21.8 22.8 BUN/Creatinine Ratio 12.1 11.4 10-20 Random Glucose 166 93 70-99 mg/dl Calcium Level 8.0 8.3 8.5-10.1 mg/dl Magnesium Level 1.6 1.9 1.8-2.4 mg/dl Phosphorus Level 3.4 2.5-4.9 mg/dl Bedside Glucose 103 70-99 mg/dl Estimated Average Glucose 203 mg/dl Hemoglobin A1c 8.7 4.5-5.6 % Test 07/25/17 11:30 Range/Units Bedside Glucose 170 70-99 mg/dl
--- NOTE | 2017-07-24 18:38 | NEPHROLOGY CONSULTATION ---
DATE OF CONSULTATION: 07/24/2017 ATTENDING OF RECORD: Dr. Kenney. REASON FOR CONSULTATION: GRANT. HISTORY OF PRESENT ILLNESS: This is an 82-year-old male with history of chronic kidney disease seen once by me in April with a creatinine in the low 2s who also has cardiomyopathy with a history of a pacemaker as well as severe underlying COPD and diabetes. Patient was recently diagnosed with non-small cell lung cancer and finished a course of radiation. Patient is also followed by urology, Dr. Rodney. Patient with a right kidney 10 cm and the left kidney 11.3 cm in October of last year with mild renal cortical thinning, does have history of BPH with interstitial cystitis and follows with Dr. Rodney and is currently incontinent, has a history of renal artery stent in 2009 at [place], has been diabetic for about 20 years, hypertensive since 1978, is on oxygen for a severe COPD and quit tobacco about 45 years ago. No NSAIDs. Despite also having a pacemaker for bradycardia, patient also has 2 stents to the heart as well as a pericardial window. Patient came in with confusion, worsening kidney function. Patient found to have a mild bilateral hydronephrosis and hydroureter with bilateral perinephric stranding, left greater than right with bilateral nephrolithiasis. Urology evaluated the patient, recommended to continue Cipro for UTI. Recommended removing the Cantu catheter for pain if okay from primary service; however, noted that the patient has had a complicated case for pain control over years and uses a lidocaine jelly for discomfort and that they were considering doing stent placement, but that with his chronic bladder pain probably will not be able to tolerate the stent and they were recommending repeat a renal ultrasound in a few days to weeks, monitor for improvement. If for some reason he decompensates with worsening renal failure, high fevers, would stent at that time; otherwise, continue conservative management and consider removal of Cantu and use a lidocaine jelly. PAST MEDICAL HISTORY: Diabetes, hypertension, and cardiomyopathy, CKD stage III with baseline creatinine in the low 2s, type 2 diabetes, severe COPD on oxygen, non-small cell lung cancer, interstitial cystitis, hyperlipidemia, degenerative disc disease. PAST SURGICAL HISTORY: Multiple cystoscopies, pacemaker, 2 stents and cholecystectomy. FAMILY HISTORY: Significant for diabetes. SOCIAL HISTORY: Smoked 2-1/2 packs per day for 30 years. No alcohol, no drugs. REVIEW OF SYSTEMS: Patient's appetite is good. Does complain of urinary pain. Has chronic shortness of breath on chronic oxygen. No chest pain, no headaches, no blurry vision, no dysphagia, confusion has improved. All other review of systems otherwise negative. CURRENT MEDICATIONS: Neurontin 200 mg at night, Zocor 20 mg at night, Flomax 0.4 mg at night, Cipro 400 mg IV daily, magnesium 400 mg p.o. b.i.d., aspirin 81 mg a day, Proscar 5 mg a day, Imdur 30 mg a day, Toprol-XL 25 mg daily, Protonix 40 mg daily, vitamin D 2000 units daily, vitamin B12 1000 mcg daily, glipizide 5 mg daily, heparin 5000 units subQ q. 8, normal saline at 100. PHYSICAL EXAMINATION: VITAL SIGNS: Temperature 36.6, pulse 70, respiratory rate is 20, blood pressure 127/62, satting 98% on 2 liters. GENERAL: Awake, alert, oriented x3, obese. EYES: No scleral icterus. ENT: Moist mucous membranes. NECK: Supple. PULMONARY: Decreased breath sounds at the bases. CARDIAC: Regular rate and rhythm. ABDOMEN: Bowel sounds positive, soft, nontender. EXTREMITIES: No significant clubbing, cyanosis or edema. NEUROLOGICALLY: Nonfocal. DERMATOLOGIC: No rash or ulcers noted. LABORATORY DATA: White count 7, H&H 10 and 33, platelet count is 179. Sodium level is 141, potassium is 5.2, chloride is 111, bicarbonate 25, BUN is 35, creatinine is 2.8, lactic acid 0.9, which is improved from 2.23. Mag is 1.6 and was repleted today. Calcium is 8.2. Troponins negative. UA showed large leukocyte esterase, greater than 30 WBCs, greater than 30 RBCs. INR is 1.1. Urine culture came back no growth. Blood cultures are pending. ASSESSMENT AND PLAN: 1. Acute kidney injury on chronic kidney disease with baseline creatinine of 2.1, comes in with confusion and mild bilateral hydronephrosis with a UA that looks concerning for urinary tract infection; however, urine culture is negative. Creatinine did improve from 3.09, down to 2.65/2.8. Specimens were drawn 6 minutes apart, so unclear why the variation. Either way though both numbers were better than 3.09 from which he came in on, appears to be tolerating the fluids well. Baseline creatinine is 2.1. I will continue the fluids for now and defer to the primary hospitalist whether to continue the antibiotics or not. The urine does look cloudy, so my opinion would be to continue them; however, would respectfully defer to the primary hospitalist. 2. Hypomagnesemia. Currently on oral magnesium and magnesium was low at 1.6 and will follow the trends. Lactic acid that was elevated on admission has improved, confusion has also improved. Patient is symptomatically improving. No role for dialysis at this time. Would continue the current care and follow the labs and see if they continue to improve. If kidney function does start to worsen or if this does decompensate, we will talk to urology about doing a stent, although agree with them that based on his chronic pain issues, he would not tolerate the stent placement. I appreciate consultation. EDGARDO
[2017-07-24] MEDS: MAGNESIUM OXIDE 400 MG TAB PO SCH (20:38)
[2017-07-24] MEDS: TAMSULOSIN HCL 0.4 MG CAP PO SCH (20:38)
[2017-07-24] MEDS: GABAPENTIN 100 MG CAP PO SCH (20:38)
[2017-07-24] MEDS: CIPROFLOXACIN / D5W 400 MG in PREMIXED IN D5W 200 ML IV SCH (20:38)
[2017-07-24] MEDS: SIMVASTATIN 20 MG TAB PO SCH (20:38)
[2017-07-24 22:29] LABS: CREATININE 2.6 mg/dl (0.60-1.40)
[2017-07-24 22:30] LABS: POTASSIUM 4.9 mmol/L (3.5-5.1)
[2017-07-24] MEDS ORDERED: MAGNESIUM SULFATE 1GM / D5W 1 GM in PREMIXED IN D5W 100 ML IV STA (22:38)
[2017-07-24] MEDS ORDERED: GLUCAGON FOR INJ 1 MG VIAL SQ PRN (23:00)
[2017-07-24] MEDS ORDERED: GLUCOSE 10 TABS/TUBE PO PRN (23:00)
[2017-07-24] MEDS ORDERED: DEXTROSE 50% 50 ML SYR IV PRN (23:00)
[2017-07-24] MEDS ORDERED: GLUCOSE 40% GEL 15 GM TUBE PO PRN (23:00)
[2017-07-25] VITALS (12 sets, daily range): BP systolic 110–139; BP diastolic 52–67; PULSE 74–79; TEMP 36.5–37.3; O2SAT 91–98; Ht 180.3 cm; Wt 97.7 kg
[2017-07-25] MEDS: HEPARIN SOD 5000 UNIT/0.5 ML CARP SQ SCH ×3 (05:44→21:18)
[2017-07-25 06:30] LABS: CALCIUM 8.3 mg/dl (8.5-10.1); CREATININE 2.51 mg/dl (0.60-1.40); PHOSPHORUS 3.4 mg/dl (2.5-4.9); POTASSIUM 4.8 mmol/L (3.5-5.1)
[2017-07-25] MEDS: INSULIN ASPART 100 UNITS/ML 3 ML PEN SC SCH ×4 (07:00→21:00)
[2017-07-25] MEDS: ISOSORBIDE MONONITRATE 30 MG TABCR PO SCH (07:47)
[2017-07-25] MEDS: PENTOSAN POLYSULFATE SODIUM 100 MG CAP PO SCH ×3 (07:48→19:47)
[2017-07-25] MEDS: CHOLECALCIFEROL 1000 INTER.UNIT TAB PO SCH (07:48)
[2017-07-25] MEDS: PANTOprazole SOD 40 MG TAB PO SCH (07:48)
[2017-07-25] MEDS: METOPROLOL SUCC 25MG EXT REL TAB PO SCH (07:48)
[2017-07-25] MEDS: FINASTERIDE 5 MG TAB PO SCH (07:48)
[2017-07-25] MEDS: ASPIRIN 81 MG ECTAB PO SCH (07:48)
[2017-07-25] MEDS: CYANOCOBALAMIN 500 MCG TAB (VIT B-12) PO SCH (07:48)
[2017-07-25] MEDS: MAGNESIUM OXIDE 400 MG TAB PO SCH ×2 (07:48→19:47)
--- NOTE | 2017-07-25 08:27 | Nephrology Progress Note ---
Nephrology Progress Note Date of Service: Jul 25, 2017. Subjective 82 yo male with multiple medical problems who presented with altered mental status, ua concerning for infection, piero, bilateral hydronephrosis. had barker placed and given antibiotics and fluids. pts mental status improved. urine still appears cloudy. Objective Date Time Temp Pulse Resp B/P (MAP) Pulse Ox O2 Delivery O2 Flow Rate FiO2 07/25/17 04:00 95 Nasal Cannula 2.0 07/25/17 03:52 36.9 77 18 124/63 (83) 96 07/25/17 00:02 37.0 76 16 137/67 (90) 96 07/24/17 23:59 97 Nasal Cannula 2.0 07/24/17 20:00 Nasal Cannula 2.0 07/24/17 19:44 36.9 68 16 103/54 (70) 97 Room Air 07/24/17 16:00 Nasal Cannula 2.0 07/24/17 15:10 36.6 70 20 127/62 (83) 98 Nasal Cannula 2.0 07/24/17 12:00 Nasal Cannula 2.0 07/24/17 11:20 36.9 80 20 103/57 (72) 92 Nasal Cannula 2.0 Physical Exam: General-aaox3 Eyes-no scleral icterus ENT-mmm Neck-supple Lungs-+end expiratory wheeze Heart-rrr Abdomen-bs+ s/nt/nd Extremities-no c/c/e Neuro-nonfocal Current Inpatient Medications Medications (Trade) Dose Ordered Sig/Tonia Route Start Time Stop Time Status Last Admin Dose Admin Heparin Sodium (Porcine) (Heparin Sq 5000 Unit/0.5ml) 5,000 unit Q8 SQ 07/24/17 06:00 08/23/17 05:59 07/25/17 05:44 5,000 UNIT Sodium Chloride 1,000 ml @ 100 mls/hr Q10H IV 07/23/17 23:59 08/22/17 23:58 07/24/17 20:38 100 MLS/HR Ondansetron HCl (Zofran Inj) 4 mg Q6H PRN IV 07/23/17 22:00 08/22/17 21:59 07/23/17 23:14 4 MG Aspirin (Ecotrin Tab) 81 mg DAILY PO 07/24/17 09:00 5/9/18 08:59 07/25/17 07:48 81 MG Fexofenadine HCl (Randa Tab) 180 mg DAILY PRN PO 07/23/17 22:15 08/22/17 22:14 Finasteride (Proscar Tab) 5 mg DAILY PO 07/24/17 09:00 08/23/17 08:59 07/25/17 07:48 5 MG Fluticasone Propionate (Flonase Nasal [place]) 2 sprays DAILY PRN [place] 07/23/17 22:15 08/22/17 22:14 Gabapentin (Neurontin Cap) 200 mg HS PO 07/24/17 21:00 08/23/17 20:59 07/24/17 20:38 200 MG Isosorbide Mononitrate (Imdur Ext Rel Tab) 30 mg QAM PO 07/24/17 09:00 08/23/17 08:59 07/25/17 07:47 30 MG Metoprolol Succinate (Toprol Xl Tab) 25 mg DAILY PO 07/24/17 09:00 08/23/17 08:59 07/25/17 07:48 25 MG Pantoprazole Sodium (Protonix Tab) 40 mg DAILY PO 07/24/17 09:00 08/23/17 08:59 07/25/17 07:48 40 MG Simvastatin (Zocor Tab) 20 mg HS PO 07/24/17 21:00 08/23/17 20:59 07/24/17 20:38 20 MG Tamsulosin HCl (Flomax Cap) 0.4 mg HS PO 07/24/17 21:00 08/23/17 20:59 07/24/17 20:38 0.4 MG Cholecalciferol (Vitamin D Tab) 2,000 inter.unit DAILY PO 07/24/17 09:00 08/23/17 08:59 07/25/17 07:48 2,000 INTER.UNIT Cyanocobalamin (Vitamin B-12 Tab) 1,000 mcg DAILY PO 07/24/17 09:00 08/23/17 08:59 07/25/17 07:48 1,000 MCG Pentosan Polysulfate Sodium (Elmiron) 100 mg TID PO 07/24/17 09:00 08/23/17 08:59 07/25/17 07:48 100 MG Ciprofloxacin/ Dextrose 400 mg/ Prmx 200 ml @ 100 mls/hr Q24H IV 07/24/17 21:00 08/01/17 22:59 07/24/17 20:38 100 MLS/HR Ipratropium [place] (Atrovent 0.02% 0.5MG/2.5ML Neb) 0.5 mg QID PRN INH 07/23/17 22:45 08/22/17 22:44 Levalbuterol (Xopenex 1.25MG/ 3ML Neb) 1.25 mg TID PRN INH 07/23/17 22:45 08/22/17 22:44 Ciprofloxacin (Consult) 1 ea UD PRN N/A 07/24/17 00:15 08/23/17 00:14 Lidocaine HCl (Xylocaine Jelly 2%) 5 ml UD PRN EXT 07/24/17 11:00 08/23/17 10:59 07/24/17 16:33 5 ML Magnesium Oxide (Mag-Ox Tab) 400 mg BID PO 07/24/17 21:00 08/23/17 20:59 07/25/17 07:48 400 MG Insulin Aspart (novoLOG ASPART) SLIDING SCALE If C... ACHS SC 07/25/17 07:00 08/24/17 06:59 Glucose (Glucose 40% Gel) 15-30 GRAMS 15 GRAMS... UD PRN PO 07/24/17 23:00 08/23/17 22:59 Glucose (Glucose Chew Tab) 4-8 Tablets 4 Tabl... UD PRN PO 07/24/17 23:00 08/23/17 22:59 Dextrose (Dextrose 50% 50ML Syringe) 25-50ML OF 50% DW IV FOR... UD PRN IV 07/24/17 23:00 08/23/17 22:59 Glucagon (Glucagon Inj) 1 mg UD PRN SQ 07/24/17 23:00 08/23/17 22:59 Last 24 Hours Test 07/24/17 21:46 07/25/17 05:33 07/25/17 06:35 07/25/17 07:37 Sodium Level 141 mmol/L 141 mmol/L Potassium Level 4.9 mmol/L 4.8 mmol/L Chloride Level 110 mmol/L 113 mmol/L Carbon Dioxide Level 24 mmol/L 21 mmol/L Anion Gap 7.0 mmol/L 8.0 mmol/L Blood Urea Nitrogen 32 mg/dl 29 mg/dl Creatinine 2.60 mg/dl 2.51 mg/dl Est Creatinine Clear Calc Drug Dose 25.4 ml/min 26.6 ml/min Estimated GFR () 25.3 26.4 Estimated GFR (Non- 21.8 22.8 BUN/Creatinine Ratio 12.1 11.4 Random Glucose 166 mg/dl 93 mg/dl Calcium Level 8.0 mg/dl 8.3 mg/dl Magnesium Level 1.6 mg/dl 1.9 mg/dl Phosphorus Level 3.4 mg/dl Bedside Glucose 103 mg/dl Assessment & Plan piero on ckd stage 4 with creatinine baseline of 2.1 and presented above 3 and is now 2.5. urology recommended removing barker. defer to urology. pt with urinary incontinence and usually uses depends at home. pt with underlying copd and has wheezing. concerned for eventual volume overload. will stop the iv fluids. urine still appears cloudy and despite the urine culture being negative , would personally continue the iv antibiotics. have ordered a repeat renal us for tomorrow am to see if any improvement in the hydronephrosis.
[2017-07-25 08:40] LABS: HEMOGLOBIN A1C 8.7 % (4.5-5.6)
--- NOTE | 2017-07-25 11:33 | Progress Note ---
Subjective Date of Service: Jul 25, 2017. Subjective Pt evaluation today including: conversation w/ patient, chart review, lab review Voiding: no voiding problems 82 yo male with chronic bladder and pelvic pain; recurrent UTI; chronic prostatitis. Pt reports his pain has improved since barker catheter was removed. Denies voiding difficulty. Cr has improved to 2.51 this morning. UC&S growing mei albicans. Problem List Medical Problems: (1) Altered mental status Status: Acute (2) Altered mental status Status: Acute (3) Altered mental status Status: Acute (4) Altered mental status Status: Acute (5) Change in mental status Status: Acute (6) Confusion Status: Acute (7) Dehydration Status: Acute (8) Failure of outpatient treatment Status: Acute (9) Insomnia Status: Acute (10) Penile pain Status: Acute (11) TIA (transient ischemic attack) Status: Acute (12) UTI (urinary tract infection) Status: Acute (13) Weakness Status: Acute (14) Weakness Status: Acute Review of Systems Constitutional: No fever, No chills Respiratory: No shortness of breath Cardiac: No chest pain Abdomen: No pain, No nausea, No vomiting Male : No dysuria, No hematuria Heme: No abnormal bleeding/bruising Objective Vital Signs Date Time Temp Pulse Resp B/P (MAP) Pulse Ox O2 Delivery O2 Flow Rate FiO2 07/25/17 08:00 98 Nasal Cannula 2.0 07/25/17 07:07 37.0 79 20 121/67 (85) 95 Nasal Cannula 2.0 07/25/17 04:00 95 Nasal Cannula 2.0 07/25/17 03:52 36.9 77 18 124/63 (83) 96 07/25/17 00:02 37.0 76 16 137/67 (90) 96 07/24/17 23:59 97 Nasal Cannula 2.0 07/24/17 20:00 Nasal Cannula 2.0 07/24/17 19:44 36.9 68 16 103/54 (70) 97 Room Air 07/24/17 16:00 Nasal Cannula 2.0 07/24/17 15:10 36.6 70 20 127/62 (83) 98 Nasal Cannula 2.0 07/24/17 12:00 Nasal Cannula 2.0 Physical Exam General Appearance: no apparent distress Eyes: normal inspection ENT: hearing grossly normal Neck: no JVD Respiratory/Chest: no respiratory distress, no accessory muscle use Cardiovascular: no JVD Extremities: normal inspection Neurologic/Psychiatric: alert, normal mood/affect, oriented x 3 Skin: normal color Laboratory Results Last 24 Hours Test 07/24/17 21:46 07/25/17 05:33 07/25/17 06:35 07/25/17 07:37 Sodium Level 141 mmol/L 141 mmol/L Potassium Level 4.9 mmol/L 4.8 mmol/L Chloride Level 110 mmol/L 113 mmol/L Carbon Dioxide Level 24 mmol/L 21 mmol/L Anion Gap 7.0 mmol/L 8.0 mmol/L Blood Urea Nitrogen 32 mg/dl 29 mg/dl Creatinine 2.60 mg/dl 2.51 mg/dl Est Creatinine Clear Calc Drug Dose 25.4 ml/min 26.6 ml/min Estimated GFR () 25.3 26.4 Estimated GFR (Non- 21.8 22.8 BUN/Creatinine Ratio 12.1 11.4 Random Glucose 166 mg/dl 93 mg/dl Calcium Level 8.0 mg/dl 8.3 mg/dl Magnesium Level 1.6 mg/dl 1.9 mg/dl Phosphorus Level 3.4 mg/dl Bedside Glucose 103 mg/dl Estimated Average Glucose 203 mg/dl Hemoglobin A1c 8.7 % Assessment and Plan A/P: UTI, bladder pain AFVSS. UC&S growing mei. Will start Diflucan. Consider discontinuing Cipro. Would also consider consulting ID for his recurrent UTIs. He has a hx of both recurrent bacterial and fungal UTI. Continue to wash penis twice daily with soap and water. Will continue to follow along with primary service.
[2017-07-25] MEDS: FLUCONAZOLE 100 MG TAB PO SCH (15:19)
[2017-07-25] MEDS: ACETAMINOPHEN 325 MG TAB PO PRN (15:49)
--- NOTE | 2017-07-25 18:02 | Progress Note ---
Medicine Progress Note Date & Time of Visit: Jul 25, 2017 at 16:45. Subjective Pt was seen and examined Lying in bed with no distress with and aid at bedside Pt said that his pain seems to improve He said that he feels much better Denies any chest pain, palpitation, dizziness and SOB Objective Last 8 Hrs Date Time Temp Pulse Resp B/P (MAP) Pulse Ox O2 Delivery O2 Flow Rate FiO2 07/25/17 15:08 36.8 77 20 110/52 (71) 96 Room Air 07/25/17 12:00 91 Room Air 07/25/17 11:06 36.5 79 20 113/58 (76) 92 Room Air Physical Exam: General- No acute distress Head- atraumatic Eyes- PERRL, EOMI ENT- oropharynx clear Neck- supple, no JVD Lungs- poor air entry Heart- regular rhythm Abdomen- normal bowel sounds, soft Extremities- no pretibial edema Neuro- alert, oriented, PERRL, EOMI Skin- warm & dry Laboratory Results: Last 24 Hours Test 07/24/17 21:46 07/25/17 05:33 07/25/17 06:35 07/25/17 07:37 Sodium Level 141 mmol/L 141 mmol/L Potassium Level 4.9 mmol/L 4.8 mmol/L Chloride Level 110 mmol/L 113 mmol/L Carbon Dioxide Level 24 mmol/L 21 mmol/L Anion Gap 7.0 mmol/L 8.0 mmol/L Blood Urea Nitrogen 32 mg/dl 29 mg/dl Creatinine 2.60 mg/dl 2.51 mg/dl Est Creatinine Clear Calc Drug Dose 25.4 ml/min 26.6 ml/min Estimated GFR () 25.3 26.4 Estimated GFR (Non- 21.8 22.8 BUN/Creatinine Ratio 12.1 11.4 Random Glucose 166 mg/dl 93 mg/dl Calcium Level 8.0 mg/dl 8.3 mg/dl Magnesium Level 1.6 mg/dl 1.9 mg/dl Phosphorus Level 3.4 mg/dl Bedside Glucose 103 mg/dl Estimated Average Glucose 203 mg/dl Hemoglobin A1c 8.7 % Test 07/25/17 11:30 07/25/17 16:16 Bedside Glucose 170 mg/dl 143 mg/dl Assessment & Plan CONFUSION/METABOLIC ENCEPHALOPATHY Due to dehydration/urinary tract infection/acute renal failure Clinically improves ACUTE KIDNEY INJURY ON CKD STAGE IV Creatine on admission 3.09, baseline creatine 2.1 Creatine 2.5 today Will get renal u/s in am IVF d/c nephrology on board Monitor BMP HYPERKALEMIA K stable monitor BMP LOW MAGNESIUM Mg stable BILATERAL HYDRONEPHROSIS CT abdomen/pelvis showed bilateral hydronephrosis and bilateral hydroureter. Perinephric and periureteral stranding. No ureteral calculi are visualized Urology on board No urological procedure is indicated, very high risks for stent placement UTI: urine cx growth [place] albicans Afebrile and no leukocytosis Continue IV ciprofloxacin Will change to po Cipro on discharge Urology recommended to wash penis with soap BID TYPE 2 DIABETES Hba1c 8.7 Hold oral meds Continue Insulin sliding scale CODE STATUS full code DVT PROPHYLAXIS sub q heparin DISPOSITION Will discharge once medically stable Current Inpatient Medications: Current Inpatient Medications Medications (Trade) Dose Ordered Sig/Tonia Route Start Time Stop Time Status Last Admin Dose Admin Heparin Sodium (Porcine) (Heparin Sq 5000 Unit/0.5ml) 5,000 unit Q8 SQ 07/24/17 06:00 08/23/17 05:59 07/25/17 15:22 5,000 UNIT Ondansetron HCl (Zofran Inj) 4 mg Q6H PRN IV 07/23/17 22:00 08/22/17 21:59 07/23/17 23:14 4 MG Aspirin (Ecotrin Tab) 81 mg DAILY PO 07/24/17 09:00 08/23/17 08:59 07/25/17 07:48 81 MG Fexofenadine HCl (Randa Tab) 180 mg DAILY PRN PO 07/23/17 22:15 08/22/17 22:14 Finasteride (Proscar Tab) 5 mg DAILY PO 07/24/17 09:00 08/23/17 08:59 07/25/17 07:48 5 MG Fluticasone Propionate (Flonase Nasal [place]) 2 sprays DAILY PRN [place]TON 07/23/17 22:15 08/22/17 22:14 Gabapentin (Neurontin Cap) 200 mg HS PO 07/24/17 21:00 08/23/17 20:59 07/24/17 20:38 200 MG Isosorbide Mononitrate (Imdur Ext Rel Tab) 30 mg QAM PO 07/24/17 09:00 08/23/17 08:59 07/25/17 07:47 30 MG Metoprolol Succinate (Toprol Xl Tab) 25 mg DAILY PO 07/24/17 09:00 08/23/17 08:59 07/25/17 07:48 25 MG Pantoprazole Sodium (Protonix Tab) 40 mg DAILY PO 07/24/17 09:00 08/23/17 08:59 07/25/17 07:48 40 MG Simvastatin (Zocor Tab) 20 mg HS PO 07/24/17 21:00 08/23/17 20:59 07/24/17 20:38 20 MG Tamsulosin HCl (Flomax Cap) 0.4 mg HS PO 07/24/17 21:00 08/23/17 20:59 07/24/17 20:38 0.4 MG Cholecalciferol (Vitamin D Tab) 2,000 inter.unit DAILY PO 07/24/17 09:00 08/23/17 08:59 07/25/17 07:48 2,000 INTER.UNIT Cyanocobalamin (Vitamin B-12 Tab) 1,000 mcg DAILY PO 07/24/17 09:00 08/23/17 08:59 07/25/17 07:48 1,000 MCG Pentosan Polysulfate Sodium (Elmiron) 100 mg TID PO 07/24/17 09:00 08/23/17 08:59 07/25/17 15:19 100 MG Ciprofloxacin/ Dextrose 400 mg/ Prmx 200 ml @ 100 mls/hr Q24H IV 07/24/17 21:00 08/01/17 22:59 07/24/17 20:38 100 MLS/HR Ipratropium [place] (Atrovent 0.02% 0.5MG/2.5ML Neb) 0.5 mg QID PRN INH 07/23/17 22:45 08/22/17 22:44 Levalbuterol (Xopenex 1.25MG/ 3ML Neb) 1.25 mg TID PRN INH 07/23/17 22:45 08/22/17 22:44 Ciprofloxacin (Consult) 1 ea UD PRN N/A 07/24/17 00:15 08/23/17 00:14 Lidocaine HCl (Xylocaine Jelly 2%) 5 ml UD PRN EXT 07/24/17 11:00 08/23/17 10:59 07/24/17 16:33 5 ML Magnesium Oxide (Mag-Ox Tab) 400 mg BID PO 07/24/17 21:00 08/23/17 20:59 07/25/17 07:48 400 MG Insulin Aspart (novoLOG ASPART) SLIDING SCALE If C... ACHS SC 07/25/17 07:00 08/24/17 06:59 07/25/17 13:17 4 UNITS Glucose (Glucose 40% Gel) 15-30 GRAMS 15 GRAMS... UD PRN PO 07/24/17 23:00 08/23/17 22:59 Glucose (Glucose Chew Tab) 4-8 Tablets 4 Tabl... UD PRN PO 07/24/17 23:00 08/23/17 22:59 Dextrose (Dextrose 50% 50ML Syringe) 25-50ML OF 50% DW IV FOR... UD PRN IV 07/24/17 23:00 08/23/17 22:59 Glucagon (Glucagon Inj) 1 mg UD PRN SQ 07/24/17 23:00 08/23/17 22:59 Fluconazole (Diflucan Tab) 100 mg QAM PO 07/25/17 14:00 08/03/17 13:59 07/25/17 15:19 100 MG Acetaminophen (Tylenol Tab) 650 mg Q8 PRN PO 07/25/17 15:15 08/24/17 15:14 07/25/17 15:49 650 MG
[2017-07-25] MEDS: SIMVASTATIN 20 MG TAB PO SCH (19:47)
[2017-07-25] MEDS: TAMSULOSIN HCL 0.4 MG CAP PO SCH (19:47)
[2017-07-25] MEDS: GABAPENTIN 100 MG CAP PO SCH (19:47)
[2017-07-25] MEDS: CIPROFLOXACIN / D5W 400 MG in PREMIXED IN D5W 200 ML IV SCH (19:48)
[2017-07-26 03:17] VITALS: BP 126/59; PULSE 74; TEMP 37; O2SAT 97
[2017-07-26 04:00] VITALS: O2SAT 97
[2017-07-26] MEDS: HEPARIN SOD 5000 UNIT/0.5 ML CARP SQ SCH ×2 (06:02→12:54)
[2017-07-26 07:10] LABS: CALCIUM 8.6 mg/dl (8.5-10.1); CREATININE 2.66 mg/dl (0.60-1.40); POTASSIUM 4.9 mmol/L (3.5-5.1)
[2017-07-26 07:11] VITALS: BP 129/68; PULSE 74; TEMP 36.9; O2SAT 97
[2017-07-26 07:11] LABS: PHOSPHORUS 3.8 mg/dl (2.5-4.9)
[2017-07-26] MEDS: CYANOCOBALAMIN 500 MCG TAB (VIT B-12) PO SCH (08:24)
[2017-07-26] MEDS: FINASTERIDE 5 MG TAB PO SCH (08:24)
[2017-07-26] MEDS: ASPIRIN 81 MG ECTAB PO SCH (08:24)
[2017-07-26] MEDS: PANTOprazole SOD 40 MG TAB PO SCH (08:24)
[2017-07-26] MEDS: FLUCONAZOLE 100 MG TAB PO SCH (08:24)
[2017-07-26] MEDS: METOPROLOL SUCC 25MG EXT REL TAB PO SCH (08:24)
[2017-07-26] MEDS: PENTOSAN POLYSULFATE SODIUM 100 MG CAP PO SCH ×2 (08:24→14:32)
[2017-07-26] MEDS: ISOSORBIDE MONONITRATE 30 MG TABCR PO SCH (08:24)
[2017-07-26] MEDS: CHOLECALCIFEROL 1000 INTER.UNIT TAB PO SCH (08:24)
[2017-07-26] MEDS: MAGNESIUM OXIDE 400 MG TAB PO SCH (08:24)
[2017-07-26] MEDS: INSULIN ASPART 100 UNITS/ML 3 ML PEN SC SCH ×3 (08:26→16:31)
[2017-07-26] MEDS: ACETAMINOPHEN 325 MG TAB PO PRN (08:36)
--- NOTE | 2017-07-26 09:59 | Nephrology Progress Note ---
Nephrology Progress Note Date of Service: Jul 26, 2017. Subjective 82 yo male with multiple medical problems who presented with altered mental status, ua positive for mei, piero, bilateral hydronephrosis. pt continues to have white urine. no barker and no fluids at this time. did just have repeat renal us this morning. pt interested in going home. Objective Date Time Temp Pulse Resp B/P (MAP) Pulse Ox O2 Delivery O2 Flow Rate FiO2 07/26/17 07:11 36.9 74 20 129/68 (88) 97 Nasal Cannula 2.0 07/26/17 04:00 97 Nasal Cannula 2.0 07/26/17 03:17 37.0 74 18 126/59 (81) 97 2.0 07/25/17 23:59 97 Nasal Cannula 2.0 07/25/17 23:46 36.7 78 18 139/62 (87) 97 2.0 07/25/17 20:00 Nasal Cannula 2.0 07/25/17 18:39 37.3 74 18 123/61 (81) 92 Nasal Cannula 2.0 07/25/17 16:00 92 Room Air 07/25/17 15:08 36.8 77 20 110/52 (71) 96 Room Air 07/25/17 12:00 91 Room Air 07/25/17 11:06 36.5 79 20 113/58 (76) 92 Room Air Physical Exam: General-aaox3 Eyes-no scleral icterus ENT-mmm Neck-supple Lungs-cta Heart-regular Abdomen-bs+ s/nt/nd Extremities-no c/c/e Neuro-nonfocal Current Inpatient Medications Medications (Trade) Dose Ordered Sig/Tonia Route Start Time Stop Time Status Last Admin Dose Admin Heparin Sodium (Porcine) (Heparin Sq 5000 Unit/0.5ml) 5,000 unit Q8 SQ 07/24/17 06:00 08/23/17 05:59 07/26/17 06:02 5,000 UNIT Ondansetron HCl (Zofran Inj) 4 mg Q6H PRN IV 07/23/17 22:00 08/22/17 21:59 07/23/17 23:14 4 MG Aspirin (Ecotrin Tab) 81 mg DAILY PO 07/24/17 09:00 08/23/17 08:59 07/26/17 08:24 81 MG Fexofenadine HCl (Randa Tab) 180 mg DAILY PRN PO 07/23/17 22:15 08/22/17 22:14 Finasteride (Proscar Tab) 5 mg DAILY PO 07/24/17 09:00 08/23/17 08:59 07/26/17 08:24 5 MG Fluticasone Propionate (Flonase Nasal [place]) 2 sprays DAILY PRN [place] 07/23/17 22:15 08/22/17 22:14 Gabapentin (Neurontin Cap) 200 mg HS PO 07/24/17 21:00 08/23/17 20:59 07/25/17 19:47 200 MG Isosorbide Mononitrate (Imdur Ext Rel Tab) 30 mg QAM PO 07/24/17 09:00 08/23/17 08:59 07/26/17 08:24 30 MG Metoprolol Succinate (Toprol Xl Tab) 25 mg DAILY PO 07/24/17 09:00 08/23/17 08:59 07/26/17 08:24 25 MG Pantoprazole Sodium (Protonix Tab) 40 mg DAILY PO 07/24/17 09:00 08/23/17 08:59 07/26/17 08:24 40 MG Simvastatin (Zocor Tab) 20 mg HS PO 07/24/17 21:00 08/23/17 20:59 07/25/17 19:47 20 MG Tamsulosin HCl (Flomax Cap) 0.4 mg HS PO 07/24/17 21:00 08/23/17 20:59 07/25/17 19:47 0.4 MG Cholecalciferol (Vitamin D Tab) 2,000 inter.unit DAILY PO 07/24/17 09:00 08/23/17 08:59 07/26/17 08:24 2,000 INTER.UNIT Cyanocobalamin (Vitamin B-12 Tab) 1,000 mcg DAILY PO 07/24/17 09:00 08/23/17 08:59 07/26/17 08:24 1,000 MCG Pentosan Polysulfate Sodium (Elmiron) 100 mg TID PO 07/24/17 09:00 08/23/17 08:59 07/26/17 08:24 100 MG Ciprofloxacin/ Dextrose 400 mg/ Prmx 200 ml @ 100 mls/hr Q24H IV 07/24/17 21:00 4/17/18 22:59 07/25/17 19:48 100 MLS/HR Ipratropium [place] (Atrovent 0.02% 0.5MG/2.5ML [facility]) 0.5 mg QID PRN INH 07/23/17 22:45 08/22/17 22:44 Levalbuterol (Xopenex 1.25MG/ 3ML Neb) 1.25 mg TID PRN INH 07/23/17 22:45 08/22/17 22:44 Ciprofloxacin (Consult) 1 ea UD PRN N/A 07/24/17 00:15 08/23/17 00:14 Lidocaine HCl (Xylocaine Jelly 2%) 5 ml UD PRN EXT 07/24/17 11:00 08/23/17 10:59 07/24/17 16:33 5 ML Magnesium Oxide (Mag-Ox Tab) 400 mg BID PO 07/24/17 21:00 08/23/17 20:59 07/26/17 08:24 400 MG Insulin Aspart (novoLOG ASPART) SLIDING SCALE If C... ACHS SC 07/25/17 07:00 08/24/17 06:59 07/26/17 08:26 3 UNITS Glucose (Glucose 40% Gel) 15-30 GRAMS 15 GRAMS... UD PRN PO 07/24/17 23:00 08/23/17 22:59 Glucose (Glucose Chew Tab) 4-8 Tablets 4 Tabl... UD PRN PO 07/24/17 23:00 08/23/17 22:59 Dextrose (Dextrose 50% 50ML Syringe) 25-50ML OF 50% DW IV FOR... UD PRN IV 07/24/17 23:00 08/23/17 22:59 Glucagon (Glucagon Inj) 1 mg UD PRN SQ 07/24/17 23:00 08/23/17 22:59 Fluconazole (Diflucan Tab) 100 mg QAM PO 07/25/17 14:00 08/03/17 13:59 07/26/17 08:24 100 MG Acetaminophen (Tylenol Tab) 650 mg Q8 PRN PO 07/25/17 15:15 08/24/17 15:14 07/26/17 08:36 650 MG Last 24 Hours Test 07/25/17 11:30 07/25/17 16:16 07/25/17 19:57 07/26/17 06:11 Bedside Glucose 170 mg/dl 143 mg/dl 164 mg/dl Sodium Level 140 mmol/L Potassium Level 4.9 mmol/L Chloride Level 114 mmol/L Carbon Dioxide Level 23 mmol/L Anion Gap 3.0 mmol/L Blood Urea Nitrogen 36 mg/dl Creatinine 2.66 mg/dl Est Creatinine Clear Calc Drug Dose 25.1 ml/min Estimated GFR () 24.6 Estimated GFR (Non- 21.2 BUN/Creatinine Ratio 13.6 Random Glucose 171 mg/dl Calcium Level 8.6 mg/dl Phosphorus Level 3.8 mg/dl Magnesium Level 1.9 mg/dl Test 07/26/17 06:55 Bedside Glucose 172 mg/dl Assessment & Plan piero on ckd stage 4-creatinine did improve but not yet to baseline. may be at new baseline. repeat renal us done this morning to see if any improvement in hydro. currently now on diflucan and cipro. question if able to stop the cipro. would feel more comfortable with sending home once urine appears more clear. consider ID consult for further advice on antibiotics. since symptomatically improving, holding on stenting. appreciate urology input.
--- NOTE | 2017-07-26 10:02 | DIAGNOSTIC IMAGING REPORT ---
ULTRASOUND KIDNEYS AND BLADDER CLINICAL HISTORY: Hydronephrosis. COMPARISON STUDY: Abdominal CT dated 07/23/2017. TECHNIQUE: Real-time, grayscale, and color flow sonography of the kidneys and bladder is performed. Images are reviewed in the transverse and longitudinal planes. FINDINGS: Kidneys: The kidneys demonstrate cortical atrophy. The right kidney measures 9.5 cm in length and the left kidney measures 11.9 cm in length. There is mild bilateral hydronephrosis. No shadowing renal calculi are identified. A 3.2 cm cyst is noted in the right upper pole. There is no sonographic evidence of contour deforming renal mass lesion. No perinephric fluid is identified. Bladder: The bladder is decompressed. The bladder wall appears circumferentially thickened. Ureteral jets were not seen. IMPRESSION: 1. The kidneys demonstrate cortical atrophy. Mild bilateral hydronephrosis has not significantly changed from the 07/23/2017 CT scan. 2. Although the bladder is decompressed the wall appears circumferentially thickened. Correlation with urinalysis will be required. Electronically signed by: Anand Brown M.D. 07/26/2017 10:01 AM Dictated Date/Time: 07/26/2017 9:44 AM
[2017-07-26 10:55] VITALS: BP 134/65; PULSE 72; TEMP 36.6; O2SAT 94
--- NOTE | 2017-07-26 10:59 | Progress Note ---
Progress Note Date of Service Jul 26, 2017. Progress Note ID Consult Dictated #[id number] A/P: 1. Fungal UTI -Continue fluconazole, would give 14 days -stop cipro -ok for d/c from ID standpoint when otherwise stable. -thank you
[2017-07-26] MEDS ORDERED: POLYETHYLENE (MIRALAX) 17 GM PACK PO ONE (11:48)
--- NOTE | 2017-07-26 12:25 | INFECT. DISEASE CONSULTATION ---
DATE OF CONSULTATION: 07/26/2017 HISTORY OF PRESENT ILLNESS: This is an 82-year-old gentleman who was admitted to the hospital after he was found to have an episode of confusion earlier in the day of admission. He does have a history of chronic kidney disease with prostatitis and bladder outlet obstruction. He did undergo a CAT scan in the Emergency Room which showed bilateral hydronephrosis. Urinalysis was obtained in the ER which had greater than 30 wbc's, no bacteria, but budding yeast were noted. Urine culture is growing Namrata albicans from 07/23/2017. Blood cultures from 07/23/2017 are no growth to date. He currently is on fluconazole and Cipro and appears to be tolerating his antibiotics well. He is afebrile. His white blood cell count is normal at 7.5, however, he has been found to have elevated creatinine. He does have a history of chronic kidney disease. He is being followed by nephrology during his hospital stay. He was also seen by urology and they are holding off on any procedures due to his ongoing infection. He has been afebrile since admission to the hospital. On my examination, he is lethargic, but does open his eyes. He does not provide a significant review of systems. Infectious diseases was consulted for fungal urinary tract infection. PAST MEDICAL HISTORY: Significant for coronary artery disease, history of pacemaker placement, ischemic cardiomyopathy, heart failure, COPD, type 2 diabetes, stage III chronic kidney disease, osteoarthritis, chronic back pain, history of nonsmall cell lung cancer, multiple cystoscopy procedures as an outpatient, hypertension, hyperlipidemia, anxiety, and depression. PAST SURGICAL HISTORY: Significant for right knee surgery, multiple cystoscopies, history of chest tube, pacemaker placement, cholecystectomy, and sinus surgeries. FAMILY HISTORY: Noncontributory. SOCIAL HISTORY: Negative for alcohol use or drug use. He does have a history of 2.5 packs per day tobacco history for a number of years. ALLERGIES: HE HAS ALLERGIES TO PENICILLIN, CLINDAMYCIN, CLONAZEPAM, MORPHINE, TRAMADOL, LORAZEPAM, AND OXYCODONE. CURRENT MEDICATIONS: Include Tylenol, fluconazole, insulin, Neurontin, simvastatin, Flomax, Cipro, magnesium, lidocaine jelly, aspirin, Proscar, Imdur, Toprol-XL, Protonix, vitamin D, vitamin B12, Elmiron, subcutaneous heparin, Atrovent, Xopenex, Randa, Flonase, and Zofran. PHYSICAL EXAMINATION: VITAL SIGNS: He is afebrile, pulse 74, respiratory rate 20, blood pressure 129/68, oxygen saturation is 97% on 2 L nasal cannula. He is lethargic, but arousable. HEENT: Mucous membranes are moist. HEART: Regular. LUNGS: Clear bilaterally with poor inspiratory effort. ABDOMEN: Soft and nondistended. EXTREMITIES: There is no edema. GENITOURINARY: Canut is not in place at this time. LABORATORY STUDIES: CBC is from 07/23/2017, white blood cell count 7.5, hemoglobin 10.8, platelets 179. Most recent chemistry panel was from this morning, sodium 140, potassium 4.9, chloride 114, bicarbonate 23, BUN 36, creatinine 2.6, glucose is 172. LFTs are within normal limits. UA again on arrival to the hospital, leukocyte esterase large, greater than 30 wbc's, no bacteria, but budding yeast. Urine culture is growing Namrata albicans and this is finalized. Blood cultures from 07/23/2017 are unremarkable. He did have a renal ultrasound this morning which continues to show bilateral hydronephrosis. CAT scan findings are as above. ASSESSMENT AND PLAN: Fungal urinary tract infection. I would recommend a 14-day course of fluconazole. Ciprofloxacin can be discontinued from an infectious disease's standpoint. I do not see any contraindication to discharge when otherwise medically stable. Thank you for this consultation.
--- NOTE | 2017-07-26 14:29 | Progress Note ---
Subjective Date of Service: Jul 26, 2017. Subjective Pt evaluation today including: conversation w/ patient, chart review, lab review 82 yo male with Namrata UTI, chronic pelvic and bladder pain, and chronic prostatitis. Pt reports his pain has improved this morning. No issues voiding. Pt is scheduled for repeat cysto with fulguration with Dr. Rodney on 08-09. The pt states that he does not feel this procedure has been helping. He states he feels better for 4-5 days, and then his pain returns worse than prior to the fulguration. Problem List Medical Problems: (1) Altered mental status Status: Acute (2) Altered mental status Status: Acute (3) Altered mental status Status: Acute (4) Altered mental status Status: Acute (5) Change in mental status Status: Acute (6) Confusion Status: Acute (7) Dehydration Status: Acute (8) Failure of outpatient treatment Status: Acute (9) Insomnia Status: Acute (10) Penile pain Status: Acute (11) TIA (transient ischemic attack) Status: Acute (12) UTI (urinary tract infection) Status: Acute (13) Weakness Status: Acute (14) Weakness Status: Acute Review of Systems Constitutional: No fever, No chills Respiratory: No shortness of breath Cardiac: No chest pain Abdomen: No pain, No nausea, No vomiting Male : No dysuria, No hematuria Heme: No abnormal bleeding/bruising Objective Vital Signs Date Time Temp Pulse Resp B/P (MAP) Pulse Ox O2 Delivery O2 Flow Rate FiO2 07/26/17 12:00 Nasal Cannula 2.0 07/26/17 10:55 36.6 72 20 134/65 (88) 94 Room Air 07/26/17 08:00 Nasal Cannula 2.0 07/26/17 07:11 36.9 74 20 129/68 (88) 97 Nasal Cannula 2.0 07/26/17 04:00 97 Nasal Cannula 2.0 07/26/17 03:17 37.0 74 18 126/59 (81) 97 2.0 07/25/17 23:59 97 Nasal Cannula 2.0 07/25/17 23:46 36.7 78 18 139/62 (87) 97 2.0 07/25/17 20:00 Nasal Cannula 2.0 07/25/17 18:39 37.3 74 18 123/61 (81) 92 Nasal Cannula 2.0 07/25/17 16:00 92 Room Air 07/25/17 15:08 36.8 77 20 110/52 (71) 96 Room Air Physical Exam General Appearance: no apparent distress Eyes: normal inspection ENT: hearing grossly normal Neck: no JVD Respiratory/Chest: no respiratory distress, no accessory muscle use Cardiovascular: no JVD Extremities: normal inspection Neurologic/Psychiatric: alert, normal mood/affect, oriented x 3 Skin: normal color Laboratory Results Last 24 Hours Test 07/25/17 16:16 07/25/17 19:57 07/26/17 06:11 07/26/17 06:55 Bedside Glucose 143 mg/dl 164 mg/dl 172 mg/dl Sodium Level 140 mmol/L Potassium Level 4.9 mmol/L Chloride Level 114 mmol/L Carbon Dioxide Level 23 mmol/L Anion Gap 3.0 mmol/L Blood Urea Nitrogen 36 mg/dl Creatinine 2.66 mg/dl Est Creatinine Clear Calc Drug Dose 25.1 ml/min Estimated GFR () 24.6 Estimated GFR (Non- 21.2 BUN/Creatinine Ratio 13.6 Random Glucose 171 mg/dl Calcium Level 8.6 mg/dl Phosphorus Level 3.8 mg/dl Magnesium Level 1.9 mg/dl Test 07/26/17 11:07 Bedside Glucose 205 mg/dl Assessment and Plan A/P: Fungal UTI, chronic bladder and pelvic pain, chronic prostatitis, bilateral hydronephrosis, acute on chronic renal failure AFVSS. Cr noted to be 2.66. Repeat renal u/s reviewed showing mild persistent bilateral hydro. Will continue to avoid stent placement as he is unlikely to either benefit from the stent placement or tolerate them. UC&S growing Namrata. Diflucan initiated. Discussed with Dr. White, ID consulted for further input d/t recurrent fungal and bacterial UTI. Penile discharge resolved. No evidence on exam today. Continue to wash penis twice daily with soap and water. Pt OK for d/c home from [facility]. Will keep f/u with Dr. Rodney on 08-09 at 2pm as scheduled. Will discuss continuing bladder fulgurations at that time as well.
--- NOTE | 2017-07-26 14:57 | Progress Note ---
Medicine Progress Note Date & Time of Visit: Jul 26, 2017 at 10:32. Subjective Pt was seen and examined Lying in bed with no distress Pt said that he feels ok He said that he does not have any bladder pain He was asking to go home today senior research manager talked to him about rehab/ home health, he refused services Denies any fever, chest pain, palpitation and fever Objective Last 8 Hrs Date Time Temp Pulse Resp B/P (MAP) Pulse Ox O2 Delivery O2 Flow Rate FiO2 07/26/17 12:00 Nasal Cannula 2.0 07/26/17 10:55 36.6 72 20 134/65 (88) 94 Room Air 07/26/17 08:00 Nasal Cannula 2.0 07/26/17 07:11 36.9 74 20 129/68 (88) 97 Nasal Cannula 2.0 Physical Exam: General- No acute distress Head- atraumatic Eyes- PERRL, EOMI ENT- oropharynx clear Neck- supple, no JVD Lungs- poor air entry Heart- regular rhythm Abdomen- normal bowel sounds, soft Extremities- no calf tenderness Neuro- alert, oriented, PERRL, EOMI Skin- warm & dry Laboratory Results: Last 24 Hours Test 07/25/17 16:16 07/25/17 19:57 07/26/17 06:11 07/26/17 06:55 Bedside Glucose 143 mg/dl 164 mg/dl 172 mg/dl Sodium Level 140 mmol/L Potassium Level 4.9 mmol/L Chloride Level 114 mmol/L Carbon Dioxide Level 23 mmol/L Anion Gap 3.0 mmol/L Blood Urea Nitrogen 36 mg/dl Creatinine 2.66 mg/dl Est Creatinine Clear Calc Drug Dose 25.1 ml/min Estimated GFR () 24.6 Estimated GFR (Non- 21.2 BUN/Creatinine Ratio 13.6 Random Glucose 171 mg/dl Calcium Level 8.6 mg/dl Phosphorus Level 3.8 mg/dl Magnesium Level 1.9 mg/dl Test 07/26/17 11:07 Bedside Glucose 205 mg/dl Assessment & Plan CONFUSION/METABOLIC ENCEPHALOPATHY Due to dehydration/urinary tract infection/acute renal failure CT head showed no acute intracranial findings Clinically improves ACUTE KIDNEY INJURY ON CKD STAGE IV Creatine on admission 3.09, baseline creatine 2.1 Creatine 2.6 today, seems that is new baseline Renal US showed mild bilateral hydronephrosis has not significantly changed from the 07/23/2017 CT scan nephrology on board Case discussed with nephrology and Ok from nephro standpoint to discharge home Will repeat BMP within 1 week Lasix has been on hold, will need to monitor very closely for fluid overload Once creatine improves or stable please resume Lasix Avoid nephrotoxic agent HYPERKALEMIA K stable monitor BMP LOW MAGNESIUM Mg stable BILATERAL HYDRONEPHROSIS CT abdomen/pelvis showed bilateral hydronephrosis and bilateral hydroureter. Perinephric and periureteral stranding. No ureteral calculi are visualized Urology on board Schedule for repeat cysto with fulguration with Dr. Rodney on 08/09 @ 2 pm No urological procedure is indicated currently, very high risks for stent placement case discussed with Urology and ok from urology standpoint to d/c home UTI: Urine cx growth Namrata albicans Afebrile and no leukocytosis ID was consulted and recommended to D/C IV ciprofloxacin Starting on fluconazole and will complete 14 days course Urology recommended to wash penis with soap BID Follow up with urology on 08/09 TYPE 2 DIABETES Hba1c 8.7 Will resume oral DM meds on discharge Continue Insulin sliding scale CODE STATUS full code DVT PROPHYLAXIS On sub q heparin DISPOSITION Will discharge home today with HH Follow up with PCP dr. Bailey on 08/02 @ 10:45 AM Follow up with urology Dr. Rodney on 08/09 @ 2PM Current Inpatient Medications: Current Inpatient Medications Medications (Trade) Dose Ordered Sig/Tonia Route Start Time Stop Time Status Last Admin Dose Admin Heparin Sodium (Porcine) (Heparin Sq 5000 Unit/0.5ml) 5,000 unit Q8 SQ 07/24/17 06:00 08/23/17 05:59 07/26/17 12:54 5,000 UNIT Ondansetron HCl (Zofran Inj) 4 mg Q6H PRN IV 07/23/17 22:00 08/22/17 21:59 07/23/17 23:14 4 MG Aspirin (Ecotrin Tab) 81 mg DAILY PO 07/24/17 09:00 08/23/17 08:59 07/26/17 08:24 81 MG Fexofenadine HCl (Randa Tab) 180 mg DAILY PRN PO 07/23/17 22:15 08/22/17 22:14 Finasteride (Proscar Tab) 5 mg DAILY PO 07/24/17 09:00 5/9/18 08:59 07/26/17 08:24 5 MG Fluticasone Propionate (Flonase Nasal [place]) 2 sprays DAILY PRN [place] 07/23/17 22:15 08/22/17 22:14 Gabapentin (Neurontin Cap) 200 mg HS PO 07/24/17 21:00 08/23/17 20:59 07/25/17 19:47 200 MG Isosorbide Mononitrate (Imdur Ext Rel Tab) 30 mg QAM PO 07/24/17 09:00 08/23/17 08:59 07/26/17 08:24 30 MG Metoprolol Succinate (Toprol Xl Tab) 25 mg DAILY PO 07/24/17 09:00 08/23/17 08:59 07/26/17 08:24 25 MG Pantoprazole Sodium (Protonix Tab) 40 mg DAILY PO 07/24/17 09:00 08/23/17 08:59 07/26/17 08:24 40 MG Simvastatin (Zocor Tab) 20 mg HS PO 07/24/17 21:00 08/23/17 20:59 07/25/17 19:47 20 MG Tamsulosin HCl (Flomax Cap) 0.4 mg HS PO 07/24/17 21:00 08/23/17 20:59 07/25/17 19:47 0.4 MG Cholecalciferol (Vitamin D Tab) 2,000 inter.unit DAILY PO 07/24/17 09:00 08/23/17 08:59 07/26/17 08:24 2,000 INTER.UNIT Cyanocobalamin (Vitamin B-12 Tab) 1,000 mcg DAILY PO 07/24/17 09:00 08/23/17 08:59 07/26/17 08:24 1,000 MCG Pentosan Polysulfate Sodium (Elmiron) 100 mg TID PO 07/24/17 09:00 08/23/17 08:59 07/26/17 08:24 100 MG Ciprofloxacin/ Dextrose 400 mg/ Prmx 200 ml @ 100 mls/hr Q24H IV 07/24/17 21:00 08/01/17 22:59 07/25/17 19:48 100 MLS/HR Ipratropium [place] (Atrovent 0.02% 0.5MG/2.5ML Neb) 0.5 mg QID PRN INH 07/23/17 22:45 08/22/17 22:44 Levalbuterol (Xopenex 1.25MG/ 3ML Neb) 1.25 mg TID PRN INH 07/23/17 22:45 08/22/17 22:44 Ciprofloxacin (Consult) 1 ea UD PRN N/A 07/24/17 00:15 08/23/17 00:14 Lidocaine HCl (Xylocaine Jelly 2%) 5 ml UD PRN EXT 07/24/17 11:00 08/23/17 10:59 07/24/17 16:33 5 ML Magnesium Oxide (Mag-Ox Tab) 400 mg BID PO 07/24/17 21:00 08/23/17 20:59 07/26/17 08:24 400 MG Insulin Aspart (novoLOG ASPART) SLIDING SCALE If C... ACHS SC 07/25/17 07:00 08/24/17 06:59 07/26/17 12:51 3 UNITS Glucose (Glucose 40% Gel) 15-30 GRAMS 15 GRAMS... UD PRN PO 07/24/17 23:00 08/23/17 22:59 Glucose (Glucose Chew Tab) 4-8 Tablets 4 Tabl... UD PRN PO 07/24/17 23:00 08/23/17 22:59 Dextrose (Dextrose 50% 50ML Syringe) 25-50ML OF 50% DW IV FOR... UD PRN IV 07/24/17 23:00 08/23/17 22:59 Glucagon (Glucagon Inj) 1 mg UD PRN SQ 07/24/17 23:00 08/23/17 22:59 Fluconazole (Diflucan Tab) 100 mg QAM PO 07/25/17 14:00 08/03/17 13:59 07/26/17 08:24 100 MG Acetaminophen (Tylenol Tab) 650 mg Q8 PRN PO 07/25/17 15:15 08/24/17 15:14 07/26/17 08:36 650 MG
[2017-07-26 15:22] VITALS: BP 119/51; PULSE 74; TEMP 36.8; O2SAT 97
[2017-07-26] MEDS ORDERED: DFL100 PO (15:24)
--- NOTE | 2017-07-26 17:09 | Discharge Instructions ---
Discharge Instructions Date of Service Jul 26, 2017. Admission Reason for Admission: Acute Metabolic Encephalopathy, Cuate... Discharge Discharge Diagnosis / Problem: CONFUSION/METABOLIC ENCEPHALOPATHY, Acute kidney injury On CKD 4 Discharge Goals Goal(s): Decrease discomfort, Improve function, Improve disease control Activity Recommendations Activity Limitations: resume your previous activity (fall precaution) . Instructions / Follow-Up Instructions / Follow-Up Follow up with primary care provider Dr. Bailey (Dr. Guerra colleague) on 08/02 @ 10:45 AM Follow up with urology Dr. Rodney on 08/09 @ 2PM Check BMP between 3-5 days to monitor renal function Hold Lasix for now, your physician will resume it in the next few days If you develop any shortness of breath, please contact your physician or seek medical attention Fall precaution Complete course of fluconazole Current Hospital Diet Patient's current hospital diet: Renal Diet, Diabetes Type 2 Diet Discharge Diet Recommended Diet: Diabetes Type 2 Diet Pending Studies Studies pending at discharge: no Laboratory Results Hemoglobin A1c Test 07/25/17 07:37 Range/Units Estimated Average Glucose 203 mg/dl Hemoglobin A1c 8.7 H 4.5-5.6 % Medical Emergencies . Who to Call and When: Medical Emergencies: If at any time you feel your situation is an emergency, please call 911 immediately. . Non-Emergent Contact Non-Emergency issues call your: Primary Care Provider, Urologist Call Non-Emergent contact if: temperature is above 100.5 . . "Provider Documentation" section prepared by Jack White. .
[2017-07-26 17:29] VITALS: BP 119/51; PULSE 74; TEMP 36.8; O2SAT 97
--- NOTE | 2017-07-29 08:07 | Discharge Summary ---
Discharge Summary Date of Service Jul 29, 2017. Discharge Summary Admission Date: Jul 23, 2017 at 22:02 Discharge Date: Jul 26, 2017 Discharge Disposition: Home with services Principal Diagnosis: CONFUSION/METABOLIC ENCEPHALOPATHY Secondary Diagnoses/Problems: ACUTE KIDNEY INJURY ON CKD STAGE IV HYPERKALEMIA BILATERAL HYDRONEPHROSIS LOW MAGNESIUM TYPE 2 DIABETES UTI Procedures: [~ rep ct add3]] ULTRASOUND KIDNEYS AND BLADDER CLINICAL HISTORY: Hydronephrosis. COMPARISON STUDY: Abdominal CT dated 07/23/2017. TECHNIQUE: Real-time, grayscale, and color flow sonography of the kidneys and bladder is performed. Images are reviewed in the transverse and longitudinal planes. FINDINGS: Kidneys: The kidneys demonstrate cortical atrophy. The right kidney measures 9.5 cm in length and the left kidney measures 11.9 cm in length. There is mild bilateral hydronephrosis. No shadowing renal calculi are identified. A 3.2 cm cyst is noted in the right upper pole. There is no sonographic evidence of contour deforming renal mass lesion. No perinephric fluid is identified. Bladder: The bladder is decompressed. The bladder wall appears circumferentially thickened. Ureteral jets were not seen. IMPRESSION: 1. The kidneys demonstrate cortical atrophy. Mild bilateral hydronephrosis has not significantly changed from the 07/23/2017 CT scan. 2. Although the bladder is decompressed the wall appears circumferentially thickened. Correlation with urinalysis will be required. Electronically signed by: Anand Brown M.D. 07/26/2017 10:01 AM Dictated Date/Time: 07/26/2017 9:[address] SCAN OF THE ABDOMEN AND PELVIS WITHOUT CONTRAST CLINICAL HISTORY: Flank pain. Possible obstruction. COMPARISON STUDY: 07/03/2016 TECHNIQUE: CT scan of the abdomen and pelvis was performed from the lung bases to the proximal femurs. Images are reviewed in the axial, sagittal, and coronal planes. IV contrast was not administered for this examination. A dose lowering technique was utilized adhering to the principles of ALARA. CT DOSE: 2052.63 mGy.cm FINDINGS: Lower chest: There are persistent but slightly smaller bilateral pleural effusions. There are associated bibasal atelectatic changes. There is no pericardial effusion. Liver: The unenhanced liver is normal in size, contour, and attenuation. There is no intrahepatic biliary ductal dilatation. Gallbladder: Surgically absent Spleen: Mildly enlarged measuring 14 cm Pancreas: Unremarkable. Adrenal glands: There is stable left adrenal gland thickening Kidneys: There is a 7 mm lower pole left renal calculus. There are 2 lower pole right renal calculi the largest of which measures 4 mm. There is mild bilateral hydronephrosis and hydroureter. No ureteral calculi are visualized. There is bilateral perinephric stranding left greater than right. There is a 15 mm right renal cyst. Bowel: There are no transition zones indicate bowel obstruction. The appendix appears normal. There is diverticulosis. There is no evidence of acute diverticulitis. Peritoneum: There is no intraperitoneal free air or abdominal ascites. Vasculature: The abdominal aorta is normal in course and caliber. The left renal artery stent is visualized. Adenopathy: None. Pelvic viscera: The bladder was not well-distended. There is bladder wall thickening. There is mild infiltration of the perivesical fat. Prostatic calcifications are visualized. Skeletal structures: No destructive osseous lesions are seen. IMPRESSION: 1. Bilateral pleural effusions with bibasal atelectasis 2. Bilateral hydronephrosis and bilateral hydroureter. Perinephric and periureteral stranding. No ureteral calculi are visualized. Correlation for evidence of urinary tract infection is recommended. 3. No evidence of bowel obstruction. No evidence of free air 4. Diverticulosis. No evidence of acute diverticulitis 5. Normal appendix 6. Stranding of perivesical fat. 7. Bilateral nephrolithiasis Electronically signed by: Lazarus Abbott M.D. 07/23/2017 8:55 PM Dictated Date/Time: 07/23/2017 8:47 PM [~ rep ct add3]] CT HEAD WITHOUT CONTRAST (CT) CLINICAL HISTORY: Altered level of consciousness COMPARISON STUDY: 11/01/2016 TECHNIQUE: Axial CT of the brain is performed from the vertex to the skull base. IV contrast was not administered for this examination. A dose lowering technique was utilized adhering to the principles of ALARA. CT DOSE: 2576.47 mGy.cm FINDINGS: No intra or extra-axial mass lesions are visualized. There is no CT evidence of acute cortical infarction. There is no evidence of midline shift. There is no acute hemorrhage. No calvarial fractures are visualized. There are minor white matter hypodensities likely on a small vessel basis. There is no evidence of pathologic ventricular dilatation. There is no evidence of acute sinusitis. There are postsurgical changes present within the paranasal sinuses IMPRESSION: No acute intracranial findings Electronically signed by: Lazarus Abbott M.D. 07/23/2017 8:30 PM Dictated Date/Time: 07/23/2017 8:29 PM Medication Reconciliation New Medications: Fluconazole (Fluconazole) 100 Mg Tab 100 MG PO QAM for 12 Days, #12 TAB Continued Medications: Aspirin (Aspirin Ec) 81 Mg Tab 81 MG PO DAILY Cholecalciferol (D3-1000) 1,000 Unit Cap 2000 INTER.UNIT PO DAILY Cyanocobalamin (Vitamin B12) 1,000 Mcg Tab 1000 MCG PO DAILY Escitalopram Oxalate (Escitalopram Oxalate) 20 Mg Tab 20 MG PO DAILY Fexofenadine Hcl (Randa Allergy) 180 Mg Tab 180 MG PO DAILY PRN for Allergy Symptoms, TAB Finasteride (Finasteride) 5 Mg Tab 5 MG PO DAILY Fluticasone Propionate (Nasal) (Flonase Allergy Relief) 50 Mcg/Act Spr 2 SPRAYS [place] DAILY PRN for Nasal Congestion Gabapentin (Gabapentin) 100 Mg Cap 200 MG PO HS Glipizide Xl (Glucotrol Xl) 5 Mg Tab 5 MG PO DAILY Ipratropium [place] (Atrovent 0.02% Soln) 2.5 Ml Nebu 2.5 ML NEB QID Isosorbide Mononitrate (Isosorbide Mononitrate ER) 30 Mg Tabcr 30 MG PO QAM Levalbuterol (Levalbuterol HCl) 1.25 Mg/3 Ml Nebu 1 VIAL INH TID PRN for Shortness of Breath Metoprolol Succinate (Metoprolol Succinate ER) 25 Mg Tabcr 25 MG PO DAILY Pantoprazole (Pantoprazole Sodium) 40 Mg Tab 40 MG PO DAILY Pentosan Polysulfate Sodium (Elmiron) 100 Mg Cap 100 MG PO TID, CAP Simvastatin (Simvastatin) 20 Mg Tab 20 MG PO HS Tamsulosin HCl (Tamsulosin HCl) 0.4 Mg Cap 0.4 MG PO HS Discontinued Medications: Furosemide (Furosemide) 20 Mg Tab 20 MG PO DAILY Admission Information HPI (per Admitting provider): CHIEF COMPLAINT: Acute confusion since this morning with back pain for the last 5 days. HISTORY OF PRESENT COMPLAINT: He is an 82-year-old male with significant complicated past medical history as mentioned below, including ischemic cardiomyopathy with systolic heart failure and biventricular pacemaker in situ, diabetes, COPD severe, chronic kidney disease stage III, general osteoarthritis, esophageal reflux with stricture, benign neoplasm of adrenal gland, renal calculi, non-small cell lung cancer, anxiety/depression, hyperlipidemia and lumbar degenerative disc disease, apparently was noted to have acute confusion since this morning. He has been making statements and noise that does not make any sense this morning and the condition is getting worse. This is associated with chills. He does not have any complaint except back pain which has been ongoing for the last 5 days. He is incontinent of urine, but has been passing small smelly urine frequently. He denies to have any other significant pain. In the Emergency Room, he was noted to have a few significant findings including possible UTI, GRANT 1, CKD and also bilateral acute hydronephrosis, hydroureter. From that point, he was admitted to telemetry unit for continuation of care. He was started on intravenous ciprofloxacin for possible UTI coverage. Physical Exam (per Admitting): GENERAL: On examination in the Emergency Room, he was still confused but alert , awake, no acute distress. VITAL SIGNS: Temperature 37.2, pulse of 100, blood pressure 142/72, saturation 97% on 2 liters nasal cannula. HEENT: Unremarkable. NECK: Supple, no JVD, no bruit. CHEST: Decreased breath sounds both sides, but no wheezing or crackles. HEART: S1, S2 regular, no murmur. ABDOMEN: Distended, soft, mildly tender in the lower quadrants and also renal angles on either side. Bowel sounds present. EXTREMITIES: No edema. MUSCULOSKELETAL: Examination of the musculoskeletal system did not show any acute arthritis. CENTRAL NERVOUS SYSTEM: Totally confused, alert, awake, moving all the limbs. No focal motor deficit at this time but generally weak. Hospital Course CONFUSION/METABOLIC ENCEPHALOPATHY Due to dehydration/urinary tract infection/acute renal failure CT head showed no acute intracranial findings Clinically improves ACUTE KIDNEY INJURY ON CKD STAGE IV Creatine on admission 3.09, baseline creatine 2.1 Creatine 2.6 today, seems that is new baseline Renal US showed mild bilateral hydronephrosis has not significantly changed from the 07/23/2017 CT scan nephrology on board Case discussed with nephrology and Ok from nephro standpoint to discharge home Will repeat BMP within 1 week Lasix has been on hold, will need to monitor very closely for fluid overload Once creatine improves or stable please resume Lasix Avoid nephrotoxic agent HYPERKALEMIA K stable monitor BMP LOW MAGNESIUM Mg stable BILATERAL HYDRONEPHROSIS CT abdomen/pelvis showed bilateral hydronephrosis and bilateral hydroureter. Perinephric and periureteral stranding. No ureteral calculi are visualized Urology on board Schedule for repeat cysto with fulguration with Dr. Rodney on 08/09 @ 2 pm No urological procedure is indicated currently, very high risks for stent placement case discussed with Urology and ok from urology standpoint to d/c home UTI: Urine cx growth [place] albicans Afebrile and no leukocytosis ID was consulted and recommended to D/C IV ciprofloxacin Starting on fluconazole and will complete 14 days course Urology recommended to wash penis with soap BID Follow up with urology on 08/09 TYPE 2 DIABETES Hba1c 8.7 Will resume oral DM meds on discharge Continue Insulin sliding scale CODE STATUS full code DVT PROPHYLAXIS On sub q heparin DISPOSITION Will discharge home today with HH Follow up with PCP dr. Bailey on 08/02 @ 10:45 AM Follow up with urology Dr. Rodney on 08/09 @ 2PM Total time spent on discharge = 35 minutes This includes examination of the patient, discharge planning, medication reconciliation, and communication with other providers. Discharge Instructions Discharge Instructions Date of Service Jul 26, 2017. Admission Reason for Admission: Acute Metabolic Encephalopathy, Grant... Discharge Discharge Diagnosis / Problem: CONFUSION/METABOLIC ENCEPHALOPATHY, Acute kidney injury On CKD 4 Discharge Goals Goal(s): Decrease discomfort, Improve function, Improve disease control Activity Recommendations Activity Limitations: resume your previous activity (fall precaution) . Instructions / Follow-Up Instructions / Follow-Up Follow up with primary care provider Dr. Bailey (Dr. Guerra colleague) on 08/02 @ 10:45 AM Follow up with urology Dr. Rodney on 08/09 @ 2PM Check BMP between 3-5 days to monitor renal function Hold Lasix for now, your physician will resume it in the next few days If you develop any shortness of breath, please contact your physician or seek medical attention Fall precaution Complete course of fluconazole Current Hospital Diet Patient's current hospital diet: Renal Diet, Diabetes Type 2 Diet Discharge Diet Recommended Diet: Diabetes Type 2 Diet Pending Studies Studies pending at discharge: no Laboratory Results Hemoglobin A1c Test 07/25/17 07:37 Range/Units Estimated Average Glucose 203 mg/dl Hemoglobin A1c 8.7 H 4.5-5.6 % Medical Emergencies . Who to Call and When: Medical Emergencies: If at any time you feel your situation is an emergency, please call 911 immediately. . Non-Emergent Contact Non-Emergency issues call your: Primary Care Provider, Urologist Call Non-Emergent contact if: temperature is above 100.5 . . "Provider Documentation" section prepared by Jack White. . Signed: Signed: The status of this report is Draft * If report status is Draft, the document has not been finalized by the responsible provider. Additional Copies To Andrea Bailey M.D.
== END 2017-07-26 18:15 | disposition home or self-care (01) | DRG 689 ==
LOC: EDUNIT# 18:56 → C.EDA 18:58 → C.2E 22:02 → ENRESERV 22:17
PROVIDERS: ADMIT Internal Medicine; ATTEND Internal Medicine
DX: N39.0 Urinary tract infection, site not specified (principal); G93.41 Metabolic encephalopathy; N18.4 Chronic kidney disease, stage 4 (severe); I50.20 Unspecified systolic (congestive) heart failure; N17.9 Acute kidney failure, unspecified; I25.10 Atherosclerotic heart disease of native coronary artery without angina pectoris; N12 Tubulo-interstitial nephritis, not specified as acute or chronic; N13.30 Unspecified hydronephrosis; Z95.0 Presence of cardiac pacemaker; J44.9 Chronic obstructive pulmonary disease, unspecified; E11.22 Type 2 diabetes mellitus with diabetic chronic kidney disease; Z85.118 Personal history of other malignant neoplasm of bronchus and lung; Z85.51 Personal history of malignant neoplasm of bladder

== ENCOUNTER → 2017-07-31 | Outpatient (CLI) | payer OTHER ==
[~2017-07-31] MED LIST changes: -ASPI-461 PO; +ASPI81TA28 PO; -AZO PO; +CHOL1CAP93 PO; -CHOL2000 PO; +DFL100 PO; -ESCI10TA17 PO; -FINA5TAB PO; -FURO-85 PO; -GABA-112 PO; +GLIP-171 PO; -GLIP5TAB11 PO; +LXP/20 PO; -METO25TA4 PO; +NRN100 PO; -PANT40TA PO; +PANT40TA2 PO; +PRS5 PO; +TPRSR/25 PO; +XPNINS125 INH
[2017-07-31 17:41] LABS: BLOOD UREA NITROGEN 32 mg/dl (7-18); CALCIUM 9.5 mg/dl (8.5-10.1); CARBON DIOXIDE 28 mmol/L (21-32); CREATININE 2.51 mg/dl (0.60-1.40); GLUCOSE 127 mg/dl (70-99); POTASSIUM 4.9 mmol/L (3.5-5.1); SODIUM 140 mmol/L (136-145)
== END | disposition home or self-care (01) ==
LOC: C.LABSPEC 12:41
PROVIDERS: ATTEND Internal Medicine
DX: I50.20 Unspecified systolic (congestive) heart failure (principal); N18.3 Chronic kidney disease, stage 3 (moderate)

== ENCOUNTER 2017-08-12 17:07 | Inpatient (IN) | payer OTHER ==
[~2017-08-12] VITALS: Ht 180.3 cm; Wt 93.2 kg
[2017-08-12] MEDS ORDERED: SODIUM CHLORIDE 0.9% 500ML 500 ML IV STA (17:14)
--- NOTE | 2017-08-12 17:21 | EMERGENCY ROOM VISIT NOTE ---
History First contact with patient: 17:10 Stated Complaint: AMS History of Present Illness The patient is a 82 year old male who presents to the Emergency Room for evaluation of worsening mental status. History provided by EMS as patient confused, periodically crying, periodically happy. Patient with recent hospitalization for acute renal failure with metabolic encephalopathy from UTI. Has been at home last ten days doing well though apparently today was told that Cr was starting to go up and was to hold further lasix. Throughout the day he has been having waxing/waning confusion with quite labile mood. He was reportedly vomiting earlier in the day as well. Minimal other information available initially as no family arrived when patient got here. Patient with no treatments prior to arrival. Nothing makes it better nor worse. Review of Systems Unable to obtain accurate ROS as he is confused and not answering accurately. Past Medical/Surgical History Medical Problems: (1) Acute metabolic encephalopathy (2) GRANT (acute kidney injury) (3) Altered mental status (4) Basal cell carcinoma (5) Bilateral hydronephrosis (6) BPH (benign prostatic hyperplasia) (7) CAD (coronary artery disease) (8) Carotid artery plaque (9) Chronic systolic (congestive) heart failure (10) COPD, severe (11) Depression (12) Diabetes mellitus (13) Dyslipidemia (14) Esophageal stricture (15) GERD (gastroesophageal reflux disease) (16) High degree atrioventricular block (17) Ischemic cardiomyopathy (18) DENISHA (obstructive sleep apnea) (19) Pulmonary nodule (20) Renal artery stenosis (21) Renal calculi (22) UTI (urinary tract infection) Surgical Problems: (1) H/O hand surgery (2) S/P cataract surgery (3) S/P cholecystectomy (4) S/P coronary artery stent placement (5) S/P sinus surgery (6) Status post total knee replacement, right Family History Cardiac disorder FATHER BROTHER SISTER Diabetes mellitus BROTHER SISTER Hypertension FATHER SISTER Social History Smoking Status: Former Smoker Alcohol Use: none Drug Use: none Marital Status: Housing Status: lives with significant other Occupation Status: retired Current/Historical Medications Scheduled Aspirin (Aspirin Ec), 81 MG PO DAILY Cholecalciferol (D3-1000), 2,000 INTER.UNIT PO DAILY Cyanocobalamin (Vitamin B12), 1,000 MCG PO DAILY Finasteride (Finasteride), 5 MG PO DAILY Furosemide (Lasix), 20 MG PO DAILY Gabapentin (Gabapentin), 200 MG PO HS Glipizide Xl (Glucotrol Xl), 5 MG PO DAILY Ipratropium [place] (Atrovent 0.02% Soln), 2.5 ML NEB QID Metoprolol Succinate (Metoprolol Succinate ER), 12.5 MG PO DAILY Pantoprazole (Pantoprazole Sodium), 40 MG PO DAILY Pentosan Polysulfate Sodium (Elmiron), 100 MG PO BID Simvastatin (Simvastatin), 20 MG PO HS Tamsulosin HCl (Tamsulosin HCl), 0.4 MG PO HS Scheduled PRN Fexofenadine Hcl (Randa Allergy), 180 MG PO DAILY PRN for Allergy Symptoms Fluticasone Propionate (Nasal) (Flonase Allergy Relief), 2 SPRAYS [place] DAILY PRN for Nasal Congestion Levalbuterol (Levalbuterol HCl), 1 VIAL INH TID PRN for Shortness of Breath Senna (Senokot), 2 TAB PO UD PRN for Constipation Physical Exam Vital Signs Date Time Temp Pulse Resp B/P (MAP) Pulse Ox O2 Delivery O2 Flow Rate FiO2 08/12/17 18:37 96 18 122/64 96 Nasal Cannula 2.0 08/12/17 17:33 110 08/12/17 17:07 37.2 114 20 110/57 95 Nasal Cannula 2.0 Physical Exam GENERAL: Patient is chronically unwell appearing and in no acute distress though he is waxing/waning from crying to happy EYES: No scleral icterus, unremarkable pupils. ENT: Mucous membranes dry, no nasal congestion. NECK: No masses appreciated, no meningismus, trachea is midline. RESPIRATORY: Junky cough though no dyspnea. Crackles bilaterally. Equal bilaterally. No wheeze, no rhonchi. CARDIOVASCULAR: Tachycardic, Regular. No murmurs, rubs, gallops appreciated. GASTROINTESTINAL: Abdomen soft, nontender, no peritonitis. Bowel sounds positive. No masses appreciated. BACK: No midline tenderness, no CVA tenderness EXTREMITIES: Normal motion all extremities, no cyanosis, no edema. NEUROLOGIC: Awake, looking around room, mildly confused, no acute motor or sensory deficits, no focal weakness, cranial nerves grossly intact. SKIN: Dry skin with poor turgor, No rash, no jaundice, no diaphoresis. Medical Decision & Procedures Laboratory Results 08/12/17 17:20 Red Blood Count 3.74, Mean Corpuscular Volume 89.8, Mean Corpuscular Hemoglobin 28.6, Mean Corpuscular Hemoglobin Concent 31.8, Mean Platelet Volume 9.1, Neutrophils (%) (Auto) 85.7, Lymphocytes (%) (Auto) 7.3, Monocytes (%) (Auto) 6.0, Eosinophils (%) (Auto) 0.5, Basophils (%) (Auto) 0.1, Neutrophils # (Auto) 11.43, Lymphocytes # (Auto) 0.98, Monocytes # (Auto) 0.80, Eosinophils # (Auto) 0.07, Basophils # (Auto) 0.02 08/12/17 17:20 Test 08/12/17 17:20 08/12/17 17:53 08/12/17 18:22 White Blood Count 13.36 K/uL (4.8-10.8) Red Blood Count 3.74 M/uL (4.7-6.1) Hemoglobin 10.7 g/dL (14.0-18.0) Hematocrit 33.6 % (42-52) Mean Corpuscular Volume 89.8 fL (80-100) Mean Corpuscular Hemoglobin 28.6 pg (25-34) Mean Corpuscular Hemoglobin Concent 31.8 g/dl (32-36) Platelet Count 247 K/uL (130-400) Mean Platelet Volume 9.1 fL (7.4-10.4) Neutrophils (%) (Auto) 85.7 % Lymphocytes (%) (Auto) 7.3 % Monocytes (%) (Auto) 6.0 % Eosinophils (%) (Auto) 0.5 % Basophils (%) (Auto) 0.1 % Neutrophils # (Auto) 11.43 K/uL (1.4-6.5) Lymphocytes # (Auto) 0.98 K/uL (1.2-3.4) Monocytes # (Auto) 0.80 K/uL (0.11-0.59) Eosinophils # (Auto) 0.07 K/uL (0-0.5) Basophils # (Auto) 0.02 K/uL (0-0.2) RDW Standard Deviation 48.0 fL (36.4-46.3) RDW Coefficient of Variation 14.6 % (11.5-14.5) Immature Granulocyte % (Auto) 0.4 % Immature Granulocyte # (Auto) 0.06 K/uL (0.00-0.02) Red Blood Cell Morphology Unremarkable Prothrombin Time 10.4 SECONDS (9.0-12.0) Prothromb Time International Ratio 1.0 (0.9-1.1) Activated Partial Thromboplast Time 26.8 SECONDS (21.0-31.0) Partial Thromboplastin Ratio 1.0 Anion Gap 6.0 mmol/L (3-11) Estimated GFR () 19.9 Estimated GFR (Non- 17.2 BUN/Creatinine Ratio 17.2 (10-20) Calcium Level 8.7 mg/dl (8.5-10.1) Total Bilirubin 0.3 mg/dl (0.2-1) Direct Bilirubin 0.1 mg/dl (0-0.2) Aspartate Amino Transf (AST/SGOT) 16 U/L (15-37) Alanine Aminotransferase (ALT/SGPT) 22 U/L (12-78) Alkaline Phosphatase 120 U/L (45-117) Troponin I < 0.015 ng/ml (0-0.045) Total Protein 7.3 gm/dl (6.4-8.2) Albumin 2.9 gm/dl (3.4-5.0) Bedside Lactic Acid Venous 1.44 mmol/L (0.90-1.70) Urine Color YELLOW Urine Appearance TURBID (CLEAR) Urine pH 6.5 (4.5-7.5) Urine Specific [place] 1.015 (1.000-1.030) Urine Protein 3+ (NEG) Urine Glucose (UA) 2+ (NEG) Urine Ketones NEG (NEG) Urine Occult Blood 3+ (NEG) Urine Nitrite NEG (NEG) Urine Bilirubin NEG (NEG) Urine Urobilinogen NEG (NEG) Urine Leukocyte Esterase LARGE (NEG) Urine WBC (Auto) >30 /hpf (0-5) Urine RBC (Auto) >30 /hpf (0-4) Urine Hyaline Casts (Auto) 1-5 /lpf (0-5) Urine Epithelial Cells (Auto) >30 /lpf (0-5) Urine Bacteria (Auto) 1+ (NEG) Urine Pathogenic Casts /lpf (0) Medications Administered Medications (Trade) Dose Ordered Sig/Tonia Route Start Time Stop Time Status Last Admin Dose Admin Sodium Chloride 500 ml @ 999 mls/hr Q31M STAT IV 08/12/17 17:14 08/12/17 17:44 DC 08/12/17 17:57 999 MLS/HR Fentanyl Citrate (Fentanyl Inj) 50 mcg NOW STAT IV 08/12/17 18:06 08/12/17 18:07 DC 08/12/17 18:10 50 MCG Medical Decision Differential: Toxicological, Infectious, Stroke, SAH, Trauma, Electrolyte Abnormality, Hypoglycemia, Alcohol Intoxication, Drug Intoxication, Cardiac Abnormality, Sepsis, Meningitis/Encephalitis, Trauma, Excited Delirium, Serotonin Syndrome, Psychiatric, amongst other pathologies entertained. 82 yr old male arrives for evaluation of confusion. Patient with recent admission for metabolic encephalopathy in setting of possibly UTI and renal failure. Worsening confusion over night after doing well the last few days after Cipro/Diflucan treatment. Family arrived and agree with his mood being quite labile and him not being at his baseline. Patient with no evidence of head injury and I do not feel that repeat CT head is necessary given it was just done on last admission with similar symptoms. Labs reveal acute renal failure compared to baseline as well as mild AlkPhos elevation. Also has WBC elevation which could be infectious versus dehydration. Abdominal exam is benign. CXR is clear. Given small dose fentanyl as complaining of pain though unclear what it is as well as for some minor worsening of agitation. As he is clearly altered he will need to come in for further work-up and evaluation. I did opt to give initial bolus of IV fluid to see how he would respond followed by NSS infusion as HR improved and patient looking a bit better, though without hypotension nor lactic acidosis I feel that he does not require full 30ml/kg bolus at this time. UA cath reveals infection findings and thus discussed with hospitalist who will manage ABX. Discussed with Dr Low regarding hospitalist evaluation. Head Trauma GCS Score: 14 Medication Reconcilliation Current Medication List: was personally reviewed by me Blood Pressure Screening Patient's blood pressure: Normal blood pressure Impression Primary Impression: Acute metabolic encephalopathy Additional Impressions: GRANT (acute kidney injury) Dehydration Departure Information Dispostion Admitted as an inpatient Condition FAIR Referrals Daniel Guerra D.O. (PCP) Problem Qualifiers
[2017-08-12 18:05] LABS: HEMATOCRIT 33.6 % (42-52); HEMOGLOBIN 10.7 g/dL (14.0-18.0); MEAN CELL VOLUME 89.8 fL (80-100); MEAN CORPUSCULAR HEMOGLOBIN 28.6 pg (25-34); MEAN CORPUSCULAR HGB CONC 31.8 g/dl (32-36); MEAN PLATELET VOLUME 9.1 fL (7.4-10.4); PLATELET COUNT 247 K/uL (130-400); RED CELL DISTRIBUTION WIDTH CV 14.6 % (11.5-14.5); WHITE BLOOD COUNT 13.36 K/uL (4.8-10.8)
[2017-08-12] MEDS ORDERED: FENTANYL CITRATE INJ 50 MCG/1 ML 2 ML VIAL IV STA (18:06)
--- NOTE | 2017-08-12 18:07 | DIAGNOSTIC IMAGING REPORT ---
CHEST ONE VIEW PORTABLE CLINICAL HISTORY: AMS dyspnea COMPARISON STUDY: 07/23/2017 FINDINGS: Permanent bipolar cardiac pacemaker with leads in good position. Diaphragms are smooth. Minimal left infrahilar atelectasis. Lungs otherwise appear clear. IMPRESSION: No acute process The above report was generated using voice recognition software. It may contain grammatical, syntax or spelling errors. Electronically signed by: John López M.D. 08/12/2017 6:06 PM Dictated Date/Time: 08/12/2017 6:06 PM
[2017-08-12 18:13] LABS: PTT PATIENT 26.8 SECONDS (21.0-31.0)
[2017-08-12 18:16] LABS: ALBUMIN 2.9 gm/dl (3.4-5.0); ALT/SGPT 22 U/L (12-78); AST/SGOT 16 U/L (15-37); BLOOD UREA NITROGEN 55 mg/dl (7-18); CALCIUM 8.7 mg/dl (8.5-10.1); CARBON DIOXIDE 25 mmol/L (21-32); CREATININE 3.17 mg/dl (0.60-1.40); GLUCOSE 223 mg/dl (70-99); POTASSIUM 4.6 mmol/L (3.5-5.1); SODIUM 138 mmol/L (136-145)
[2017-08-12] MEDS ORDERED: SENN-61 PO (18:18)
[2017-08-12 18:21] LABS: ALKALINE PHOSPHATASE 120 U/L (45-117); TOTAL PROTEIN 7.3 gm/dl (6.4-8.2)
[2017-08-12 18:29] LABS: BASO % 0.1 %; BASO ABS # 0.02 K/uL (0-0.2); EOS % 0.5 %; EOS ABS # 0.07 K/uL (0-0.5); IG# 0.06 K/uL (0.00-0.02); LYMPH % 7.3 %; LYMPH ABS # 0.98 K/uL (1.2-3.4); NEUT % 85.7 %; NEUT ABS # 11.43 K/uL (1.4-6.5)
--- NOTE | 2017-08-12 18:49 | History and Physical ---
History & Physical Date & Time of Service: Aug 12, 2017 at 18:43 . Chief Complaint: confusion . Primary Care Physician: Daniel Guerra D.O. . History of Present Illness Source: patient, family, clinic records, hospital records 82-year-old male followed by Dr. Guerra. History of coronary artery disease, congestive heart failure, oxygen dependent COPD, non-small cell carcinoma of the lung, and other problems noted below. Cystoscopy performed by Dr. Rodney about 24 hours prior to admission. Received prophylactic antibiotics before and after the procedure. This morning the patient experienced nausea and vomiting after eating breakfast. No hematemesis. Seem to have a fever, although temperature was not taken. Also has some chills. Experiencing bilateral flank pain. Chronic urinary incontinence. No dysuria. Family noticed intermittent confusion throughout the day. noticed some blood on his adult diapers. . Past Medical/Surgical History Chronic and Resolved Medical Problems: (1) Basal cell carcinoma Status: Chronic (2) BPH (benign prostatic hyperplasia) Status: Chronic (3) CAD (coronary artery disease) Permanent Comment: s/p mid LAD and left circumflex stents in 2007 Status: Chronic (4) Carotid artery plaque Permanent Comment: carotid doppler 02/2016 showed < 50% stenosis bilaterally Status: Chronic (5) Chronic respiratory failure with hypoxia Status: Chronic (6) Chronic systolic (congestive) heart failure Permanent Comment: echo 08/2014 - EF 40-45%, grade I diastolic dysfunction; echo 02/2016- examination quality was limited. grossly normal LV function (EF 50 -54%). Moderate concentric LVH. RV not well visualized. Left and right atrium not well visualized. No significant valvular disease was present. Status: Chronic (7) CKD (chronic kidney disease), stage IV Status: Chronic (8) COPD, severe Status: Chronic (9) Depression Status: Chronic (10) Diabetes mellitus Permanent Comment: type 2 Status: Chronic (11) Dyslipidemia Status: Chronic (12) Esophageal stricture Permanent Comment: s/p dilation Status: Chronic (13) GERD (gastroesophageal reflux disease) Status: Chronic (14) High degree atrioventricular block Permanent Comment: s/p pacemaker with upgrade to biventricular device in 2014 Status: Resolved (15) Ischemic cardiomyopathy Status: Chronic (16) Non-small cell cancer of right lung Permanent Comment: Right upper lobe nodule noted in 2010 The lesion is 2.1 cm, PET-positive. Status post bronchoscopy and biopsy 01/24/2017, nondiagnostic Status post CT-guided needle aspiration 03/24/2017. Suspicious for non-small cell carcinoma Status post completion of radiation therapy June 02, 2017. He received 5000 cGy utilizing stereotactic body radiation therapy. Status: Chronic (17) DENISHA (obstructive sleep apnea) Status: Chronic (18) Renal artery stenosis Status: Chronic (19) Renal calculi Status: Chronic Surgical Problems: (1) H/O hand surgery Status: Chronic (2) S/P cataract surgery Status: Chronic (3) S/P cholecystectomy Status: Chronic (4) S/P coronary artery stent placement Status: Chronic (5) S/P sinus surgery Status: Chronic (6) Status post total knee replacement, right Status: Chronic . Family History FATHER Hypertension Cardiac disorder BROTHER Diabetes mellitus Cardiac disorder SISTER Diabetes mellitus Hypertension Cardiac disorder Social History Smoking Status: Unknown if Ever Smoked Alcohol Use: none Drug Use: none Marital Status: Housing status: lives with family Occupational Status: retired Immunizations History of Influenza Vaccine: Yes Influenza Vaccine Date: Feb 09, 2015 History of Tetanus Vaccine?: Yes Tetanus Immunization Date: Jan 30, 2008 History of Pneumococcal: Yes Pneumococcal Date: Sep 16, 2014 Allergies Coded Allergies: Penicillins (Verified Allergy, Intermediate, RASH, 08/12/17) Clindamycin (Verified Allergy, Unknown, UNKNOWN, 08/12/17) Clonazepam (Verified Adverse Reaction, Severe, hallucinations, 08/12/17) Mirabegron (Verified Adverse Reaction, Severe, DELIRIUM, 08/12/17) Confusion, slurred speech Morphine (Verified Adverse Reaction, Intermediate, mental status change, ) Tramadol (Verified Adverse Reaction, Intermediate, confusion diff sleeping , 08/12/17) Lorazepam (Verified Adverse Reaction, Mild, ATIVAN AT NIGHT DISORIENTED, ) Oxycodone (Verified Adverse Reaction, Mild, CONFUSION, 08/12/17) Home Medications Scheduled Aspirin (Aspirin Ec), 81 MG PO DAILY Cholecalciferol (D3-1000), 2,000 INTER.UNIT PO DAILY Cyanocobalamin (Vitamin B12), 1,000 MCG PO DAILY Finasteride (Finasteride), 5 MG PO DAILY Furosemide (Lasix), 20 MG PO DAILY Gabapentin (Gabapentin), 200 MG PO HS Glipizide Xl (Glucotrol Xl), 5 MG PO DAILY Ipratropium [place] (Atrovent 0.02% Soln), 2.5 ML NEB QID Metoprolol Succinate (Metoprolol Succinate ER), 12.5 MG PO DAILY Pantoprazole (Pantoprazole Sodium), 40 MG PO DAILY Pentosan Polysulfate Sodium (Elmiron), 100 MG PO BID Simvastatin (Simvastatin), 20 MG PO HS Tamsulosin HCl (Tamsulosin HCl), 0.4 MG PO HS Scheduled PRN Fexofenadine Hcl (Randa Allergy), 180 MG PO DAILY PRN for Allergy Symptoms Fluticasone Propionate (Nasal) (Flonase Allergy Relief), 2 SPRAYS BRITTON DAILY PRN for Nasal Congestion Levalbuterol (Levalbuterol HCl), 1 VIAL INH TID PRN for Shortness of Breath Senna (Senokot), 2 TAB PO UD PRN for Constipation Review of Systems CONSTITUTIONAL + fever and chills + wt loss EYES + blurred vision EARS, NOSE, MOUTH, AND THROAT + hearing loss no sinus symptoms no pharyngitis CARDIOVASCULAR no chest pain no palpitations no edema RESPIRATORY + dyspnea (chronic) home O2 GASTROINTESTINAL no nausea or vomiting no diarrhea + constipation no melena or hematochezia GENITOURINARY as noted above in HPI MUSCULOSKELETAL left leg pain INTEGUMENTARY no rash no new / changing lesions NEUROLOGIC + occasional headaches ENDOCRINE blood sugars well-controlled HEMATOLOGIC / LYMPHATIC bruises easily . Physical Exam Vital Signs Date Time Temp Pulse Resp B/P (MAP) Pulse Ox O2 Delivery O2 Flow Rate FiO2 08/12/17 18:37 96 18 122/64 96 Nasal Cannula 2.0 08/12/17 17:33 110 08/12/17 17:07 37.2 114 20 110/57 95 Nasal Cannula 2.0 CONSTITUTIONAL vital signs as noted above well-developed, well-nourished, no acute distress EYES conjunctivae clear; lids normal pupils equal and reactive to light EARS, NOSE, MOUTH AND THROAT external inspection of ears and nose unremarkable hard of hearing poor dentition oropharynx clear NECK no masses; trachea midline thyroid normal RESPIRATORY normal respiratory effort; no respiratory distress diffuse mild wheezing CARDIOVASCULAR regular rate and rhythm I / systolic murmur at base no gallop, rub appreciated carotid arteries 2/2 abdominal aorta not palpable pedal pulses diminished capillary refill toes < 2 seconds trace pretibial edema GASTROINTESTINAL normal bowel sounds, soft, mild diffuse tenderness; no palpable masses no hepatomegaly; no splenomegaly LYMPHATIC no cervical adenopathy MUSCULOSKELETAL no cyanosis no calf tenderness motor strength extremities grossly intact SKIN no rash warm and dry NEUROLOGIC PERRL, EOMI, no facial palsy, no dysarthria, tongue midline patellar DTR's 1/ PSYCHIATRIC oriented to person, place, month, year, but not day of the week mood and affect appropriate . Diagnostics Laboratory Results Results Past 24 Hours Test 08/12/17 17:20 08/12/17 17:53 08/12/17 18:22 Range/Units White Blood Count 13.36 4.8-10.8 K/uL Red Blood Count 3.74 4.7-6.1 M/uL Hemoglobin 10.7 14.0-18.0 g/dL Hematocrit 33.6 42-52 % Mean Corpuscular Volume 89.8 80-100 fL Mean Corpuscular Hemoglobin 28.6 25-34 pg Mean Corpuscular Hemoglobin Concent 31.8 32-36 g/dl Platelet Count 247 130-400 K/uL Mean Platelet Volume 9.1 7.4-10.4 fL Neutrophils (%) (Auto) 85.7 % Lymphocytes (%) (Auto) 7.3 % Monocytes (%) (Auto) 6.0 % Eosinophils (%) (Auto) 0.5 % Basophils (%) (Auto) 0.1 % Neutrophils # (Auto) 11.43 1.4-6.5 K/uL Lymphocytes # (Auto) 0.98 1.2-3.4 K/uL Monocytes # (Auto) 0.80 0.11-0.59 K/uL Eosinophils # (Auto) 0.07 0-0.5 K/uL Basophils # (Auto) 0.02 0-0.2 K/uL RDW Standard Deviation 48.0 36.4-46.3 fL RDW Coefficient of Variation 14.6 11.5-14.5 % Immature Granulocyte % (Auto) 0.4 % Immature Granulocyte # (Auto) 0.06 0.00-0.02 K/uL Red Blood Cell Morphology Unremarkable Prothrombin Time 10.4 9.0-12.0 SECONDS Prothromb Time International Ratio 1.0 0.9-1.1 Activated Partial Thromboplast Time 26.8 21.0-31.0 SECONDS Partial Thromboplastin Ratio 1.0 Sodium Level 138 136-145 mmol/L Potassium Level 4.6 3.5-5.1 mmol/L Chloride Level 107 98-107 mmol/L Carbon Dioxide Level 25 21-32 mmol/L Anion Gap 6.0 3-11 mmol/L Blood Urea Nitrogen 55 7-18 mg/dl Creatinine 3.17 0.60-1.40 mg/dl Estimated GFR () 19.9 Estimated GFR (Non- 17.2 BUN/Creatinine Ratio 17.2 10-20 Random Glucose 223 70-99 mg/dl Calcium Level 8.7 8.5-10.1 mg/dl Total Bilirubin 0.3 0.2-1 mg/dl Direct Bilirubin 0.1 0-0.2 mg/dl Aspartate Amino Transf (AST/SGOT) 16 15-37 U/L Alanine Aminotransferase (ALT/SGPT) 22 12-78 U/L Alkaline Phosphatase 120 45-117 U/L Troponin I < 0.015 0-0.045 ng/ml Total Protein 7.3 6.4-8.2 gm/dl Albumin 2.9 3.4-5.0 gm/dl Bedside Lactic Acid Venous 1.44 0.90-1.70 mmol/L Microbiology Results 08/12/17 Blood Culture, Received Pending 08/12/17 Blood Culture, Ordered Pending Diagnostic Radiology CHEST ONE VIEW PORTABLE FINDINGS: Permanent bipolar cardiac pacemaker with leads in good position. Diaphragms are smooth. Minimal left infrahilar atelectasis. Lungs otherwise appear clear. IMPRESSION: No acute process The above report was generated using voice recognition software. It may contain grammatical, syntax or spelling errors. Electronically signed by: John López M.D. 08/12/2017 6:06 PM Dictated Date/Time: 08/12/2017 6:06 PM . EKG EKG performed at 17:28 reviewed and demonstrated atrial-sensed ventricular- paced rhythm at 110 / minute, repolarization abnormalities.. . Impression Assessment and Plan PROBABLE SEPSIS Meets criteria for sepsis per current CMS definition. Probably source = urinary tract. Hemodynamically stable. Lactate < 2. Does not require aggressive fluid resuscitation. Blood and urine cultures obtained. Empiric Rx with IV imipenem / cilastatin + daptomycin pending culture results. ALTERED MENTAL STATUS Probable encephalopathy secondary to infection. CKD IV / ACUTE KIDNEY INJURY CKD IV with fluctuating creatines over past several months. Baseline creatinine seems to be around 2.6 - 2.8. Recently restarted on furosemide. Serum creatinine today = 3.17. Management of sepsis as discussed below. IV fluids. Follow. CORONARY ARTERY DISEASE No anginal symptoms. Continue aspirin, metoprolol, statin. CHRONIC SYSTOLIC CHF History of chronic left ventricular systolic heart failure with LVEF of 40-45%. Has some dependent edema, but no CHF on chest x-ray. Hold diuretics because of elevated creatinine. Diurese as needed. COPD / CHRONIC HYPOXIC RESPIRATORY FAILURE Pulmonary status appears to be stable. Continue O2 + PRN bronchodilators. LUNG CANCER Non-small cell carcinoma of right lung. Has been [place] by [facility]. S/P radiation therapy. Outpatient follow-up with Pulmonary Medicine. DM TYPE 2 Usually fairly well-controlled. Hemoglobin A1c = 7.8 in clinic on 07/07/17. Hold oral agents during hospital stay. Lantus + NovoLog per protocol. LEFT THIGH PAIN Check venous duplex to rule out DVT. VTE PROPHYLAXIS No anticoagulants due to gross hematuria. SCD's. Ambulated. RESUSCITATION STATUS Discussed with patient and his family. He does not have a living will. He would like resuscitation attempted in the event of a cardiopulmonary arrest if there is a reasonable chance of a meaningful recovery, but does not want prolonged extraordinary measures if prognosis is poor. Therefore, code status = "Level 1" (full resuscitation). DISPOSITION Admit to Telemetry Unit. Expected discharge to home. Internal Medicine follow-up with Dr. Guerra. . Resuscitation Status VTE Prophylaxis Will order VTE Prophylaxis: Yes
[2017-08-12] MEDS ORDERED: SODIUM CHLORIDE 0.9% 1000ML 1,000 ML IV STA (18:53)
[2017-08-12] MEDS ORDERED: FURO-85 PO (18:59)
[2017-08-12] MEDS ORDERED: DAPTOmycin IV 0 MG in SODIUM CHLORIDE 0.9% 50ML 50 ML IV ONE (19:00)
[2017-08-12] MEDS ORDERED: LEVALBUTEROL 1.25MG/3ML NEB INH PRN (19:15)
[2017-08-12] MEDS ORDERED: IMIPENEM/CILASTATIN IV 500 MG in DEXTROSE 5% 100ML 100 ML IV STA (19:15)
[2017-08-12] MEDS ORDERED: SENNA 8.6 MG TAB PO PRN (19:15)
[2017-08-12] MEDS ORDERED: PATIENT'S HEIGHT AND/OR WEIGHT NEEDED SCH (19:15)
[2017-08-12] MEDS ORDERED: SODIUM CHLORIDE 0.9% 1000ML 1,000 ML IV SCH (20:00)
[2017-08-12] MEDS ORDERED: ONDANSETRON INJ 2 MG/ML 2 ML VIAL IV PRN (20:15)
[2017-08-12 20:21] VITALS: BP 128/73; PULSE 88; TEMP 36.5; O2SAT 99; Ht 180.3 cm; Wt 93.2 kg
[2017-08-12] MEDS ORDERED: DAPTOmycin IV 450 MG in SYRINGE 0 ML IV SCH (20:30)
[2017-08-12] MEDS ORDERED: DAPTOMYCIN CONSULT ACTIVE PRN (21:00)
[2017-08-12] MEDS ORDERED: HEPARIN SOD 5000 UNIT/0.5 ML CARP SQ SCH (21:00)
[2017-08-12] MEDS ORDERED: IMIPENEM/CILASTATIN CONSULT ACTIVE PRN (21:00)
[2017-08-12] MEDS: INSULIN ASPART 100 UNITS/ML 3 ML PEN SC SCH (21:00)
[2017-08-12] MEDS ORDERED: SIMVASTATIN 20 MG TAB PO SCH (21:00)
[2017-08-12] MEDS: INSULIN GLARGINE SOLOSTAR 100 UNITS/ML 3 ML PEN SC SCH (21:57)
[2017-08-12] MEDS: TAMSULOSIN HCL 0.4 MG CAP PO SCH (22:11)
[2017-08-12] MEDS: GABAPENTIN 100 MG CAP PO SCH (22:11)
[2017-08-12 23:45] VITALS: BP 115/63; PULSE 103; TEMP 36.9; O2SAT 97
[2017-08-12 23:59] VITALS: O2SAT 97
[2017-08-13] VITALS (9 sets, daily range): BP systolic 120–138; BP diastolic 66–77; PULSE 74–99; TEMP 36.7–37.8; O2SAT 95–99
[2017-08-13 05:49] LABS: HEMATOCRIT 31.7 % (42-52); HEMOGLOBIN 9.8 g/dL (14.0-18.0); MEAN CELL VOLUME 91.4 fL (80-100); MEAN CORPUSCULAR HEMOGLOBIN 28.2 pg (25-34); MEAN CORPUSCULAR HGB CONC 30.9 g/dl (32-36); MEAN PLATELET VOLUME 8.8 fL (7.4-10.4); PLATELET COUNT 208 K/uL (130-400); WHITE BLOOD COUNT 10.36 K/uL (4.8-10.8)
[2017-08-13 06:21] LABS: CALCIUM 8.7 mg/dl (8.5-10.1); CREATININE 3.05 mg/dl (0.60-1.40); POTASSIUM 5.1 mmol/L (3.5-5.1)
[2017-08-13] MEDS: INSULIN ASPART 100 UNITS/ML 3 ML PEN SC SCH ×4 (07:00→20:49)
[2017-08-13] MEDS: FINASTERIDE 5 MG TAB PO SCH (07:58)
[2017-08-13] MEDS: PANTOprazole SOD 40 MG TAB PO SCH (07:58)
[2017-08-13] MEDS: ASPIRIN 81 MG ECTAB PO SCH (07:58)
--- NOTE | 2017-08-13 07:58 | Progress Note ---
Progress Note Date of Service Aug 13, 2017. Progress Note ID Consult Dictated #[id number] A/P: 1. UTI -Continue abx, follow cultures, will add fluconazole -will follow, thank you
[2017-08-13] MEDS: METOPROLOL SUCC 25MG EXT REL TAB PO SCH (07:59)
[2017-08-13] MEDS: IMIPENEM/CILASTATIN IV 500 MG in DEXTROSE 5% 100ML 100 ML IV SCH ×2 (07:59→20:25)
[2017-08-13] MEDS: INSULIN GLARGINE SOLOSTAR 100 UNITS/ML 3 ML PEN SC SCH ×2 (08:06→20:50)
--- NOTE | 2017-08-13 08:30 | INFECT. DISEASE CONSULTATION ---
DATE OF CONSULTATION: 08/13/2017 HISTORY OF PRESENT ILLNESS: This is an 82-year-old gentleman who was admitted to the hospital after he had nausea and vomiting and subjective fevers and chills. He did have a cystoscopy on 24 hours prior to admission by urology. He currently has a catheter in place and he is complaining of pain at the catheter site. His most recent culture on 23 of July grew Namrata albicans. He was placed on imipenem and daptomycin empirically. Urine cultures and blood cultures are pending. He did have a leukocytosis of 13,000, which is improved to 10. His creatinine is elevated at 3 and he did have a fever this morning of 37.8. He denies any nausea, vomiting, diarrhea or abdominal pain. This morning, he is eating clears. He denies any chest pain, cough, shortness of breath. REVIEW OF SYSTEMS: His remaining review of systems is unremarkable. PAST MEDICAL HISTORY: Significant for basal cell carcinoma, BPH, coronary artery disease, coronary artery plaque, CHF, chronic kidney disease, COPD, depression, type 2 diabetes, high cholesterol, GERD, esophageal stricture, pacemaker, cardiomyopathy, nonsmall cell lung cancer, obstructive sleep apnea, renal artery stenosis, renal calculi. PAST SURGICAL HISTORY: Significant for hand surgery, cataract repair, cholecystectomy, coronary artery stenting, sinus surgery and a right knee replacement. FAMILY HISTORY: Noncontributory. SOCIAL HISTORY: Unremarkable. ALLERGIES: INCLUDE PENICILLIN, CLINDAMYCIN, CLONAZEPAM, MIRABEGRON, MORPHINE, TRAMADOL, LORAZEPAM, AND OXYCODONE. CURRENT MEDICATIONS: Aspirin, Proscar, Topral XL, Protonix, imipenem, Lantus insulin, Neurontin, Zocor, Flomax, daptomycin, Zofran, Xopenex, Senokot. PHYSICAL EXAMINATION: VITAL SIGNS: Current temperature is 37, T-max 37.8, pulse 74, respiratory rate 18, blood pressure 135/75, oxygen saturation is 96% on 2 liters nasal cannula. GENERAL: He is awake, alert and oriented. He is in no acute distress. HEENT: Mucous membranes are dry. Extraocular muscles are intact. HEART: Without murmur. LUNGS: Clear. ABDOMEN: Soft, nontender, nondistended. EXTREMITIES: There is no lower extremity edema. Cantu catheter is in place with yellow urine. LABORATORY STUDIES: CBC today, white blood cell count 10.3, hemoglobin 9.8, platelets 208. Chemistry panel: Sodium 139, potassium 5.1, chloride 111, bicarbonate 27, BUN 50, creatinine 3.0. Glucose 111. A procalcitonin is 0.6. UA, large leukocyte esterase, greater than 30 WBCs, +1 bacteria. Blood and urine cultures are pending. Chest x-ray is negative for infiltrate. ASSESSMENT AND PLAN: Urinary tract infection. He will continue on antibiotics. Fluconazole will be added. We will follow along with you.
[2017-08-13] MEDS ORDERED: FLUCONAZOLE 100 MG TAB PO ONE (09:30)
--- NOTE | 2017-08-13 11:31 | DIAGNOSTIC IMAGING REPORT ---
ULTRASOUND LEFT LOWER EXTREMITY VENOUS CLINICAL HISTORY: Left thigh pain. COMPARISON STUDY: No priors. TECHNIQUE: Real-time, grayscale, and color Doppler sonography of the deep veins of the left lower extremity was performed from the inguinal crease to the calf. Compression and augmentation were utilized. FINDINGS: There is no sonographic evidence of deep venous thrombosis identified in the left lower extremity. The common femoral, superficial femoral, and popliteal veins are patent and normally compressible. The greater saphenous vein and the profunda femoris vein at the junction with the common femoral vein are clear. The visualized calf veins are patent. IMPRESSION: There is no sonographic evidence of deep venous thrombosis identified in the left lower extremity. Electronically signed by: Anand Brown M.D. 08/13/2017 11:30 AM Dictated Date/Time: 08/13/2017 11:29 AM
--- NOTE | 2017-08-13 15:50 | NEPHROLOGY CONSULTATION ---
DATE OF CONSULTATION: 08/13/2017 REASON FOR CONSULT: Acute renal failure on background CKD 4. HISTORY OF PRESENT ILLNESS: The patient is an 82-year-old male followed by Dr. Guerra with extensive medical problem list including CKD stage IV with a more recent baseline creatinine of around 2.6. He has a history of congestive heart failure with an EF of around 40%, oxygen dependent COPD, nonsmall cell carcinoma of the lung, as well as other medical problems. He had an outpatient cystoscopy one day prior to admission. He did receive prophylactic antibiotics both before and after the procedure. One day after the procedure, the patient started having nausea and vomiting after eating breakfast, did not have any diarrhea or constipation. He also seemed to have a low grade fever with some chills and experienced some bilateral flank pain. He has history of chronic urinary incontinence. Family also noticed that he was slightly confused the whole day and there was some report of hematuria. PAST MEDICAL AND SURGICAL HISTORY: Basal cell carcinoma, BPH, coronary artery disease status post mid LAD and left circumflex stent, carotid artery plaque, chronic respiratory failure with hypoxia, chronic systolic congestive heart failure, EF of 40%, CKD stage IV with a baseline creatinine of around 2.6, severe COPD, depression, type 2 diabetes, dyslipidemia, esophageal stricture status post dilatation, GERD, high degree AV block, nonsmall cell cancer of the right lung, obstructive sleep apnea, history of renal artery stenosis, history of kidney stones, cataract surgery, cholecystectomy, coronary artery stent placement, sinus surgery, total knee replacement. FAMILY HISTORY: Noncontributory for current problem. SOCIAL HISTORY: Smoking in the past. Alcohol none. No drugs. and lives with his family. He is retired. ALLERGIES: List was reviewed in detail and is as per the reconciliation list. HOME MEDICATIONS: List was also reviewed in detail and is as per the list. REVIEW OF SYSTEMS: Positive for fever and chills, some weight loss, weakness. He has chronic dyspnea from COPD, low grade fever and chills with some flank pain. Unless stated otherwise, 12 systems reviewed and negative. PHYSICAL EXAMINATION: GENERAL: Elderly white male who is awake, alert, oriented x3. He is quite talkative and was happy to share all his life history with me. VITAL SIGNS: Blood pressure 122/74, 96% on 2 L nasal cannula, pulse rate 85 per minute, temperature 36.8. HEENT: Mucous membrane is moist. NECK: Supple. No jugular venous distention. CARDIOVASCULAR: Regular rate and rhythm, 2/6 systolic murmur heard at bases. CHEST: Bilaterally clear to auscultation. GASTROINTESTINAL: Normal bowel sounds, soft, nontender. EXTREMITIES: Shows trace edema. LABORATORY TESTS: Yesterday at the time of admission, sodium 138, potassium 4.6, BUN 55, creatinine 3.17, hemoglobin 10.7, WBC count 13.36, platelet count 247. Labs this morning shows slight improvement in the creatinine which is down to 3.05, BUN 50. Sodium 139, potassium 5.1. Urinalysis shows lots of epithelial cells, some wbc, rbc as well as casts, blood 3+, protein, 1+. Chest x-ray shows no acute process. ASSESSMENT AND PLAN: An 82-year-old male with a baseline chronic kidney disease 4, now presenting with some acute infectious process likely triggered by cystoscopy with possible urinary tract infection. Creatinine is slightly elevated to 3.17 from a baseline of around 2.6 but he is making urine and is trending down with the use of IV fluid and treatment of sepsis/UTI. RECOMMENDATIONS: Creatinine is improving on its own. He can have fluids until tomorrow morning and then stop. I do not think we need to continuously give him aggressive hydration. He seems pretty much back to his baseline with normal hemodynamic status. Lactic acid has already come down to normal at 1.44. No further workup is needed for the etiology of the acute renal failure. Continue antibiotics. He is getting imipenem the dose of which does need to be titrated based on the GFR. Thank you very much for the consult. EDGARDO
[2017-08-13] MEDS: GABAPENTIN 100 MG CAP PO SCH (20:47)
[2017-08-13] MEDS: TAMSULOSIN HCL 0.4 MG CAP PO SCH (20:47)
--- NOTE | 2017-08-13 21:12 | Progress Note ---
Medicine Progress Note Date & Time of Visit: Aug 13, 2017 at 15:30 . Subjective CC: Follow-up visit for sepsis and other problems. HPI: Confused this morning, better this afternoon. No fever, chills, sweats. Cantu removed because of discomfort. Experiencing some dysuria since Cantu removed. No cough or unusual dyspnea. ROS: General- as noted above in HPI Resp- as noted above in HPI Cardiac- no chest pain GI- no nausea, no vomiting, no diarrhea, no constipation - as noted above in HPI . Objective Last 8 Hrs Date Time Temp Pulse Resp B/P (MAP) Pulse Ox O2 Delivery O2 Flow Rate FiO2 08/13/17 19:46 36.9 98 20 130/75 (93) 97 Nasal Cannula 3.0 08/13/17 15:24 36.7 91 20 138/77 (97) 95 Room Air 08/13/17 15:00 96 Nasal Cannula 2.0 Physical Exam: General- lying in bed, no distress Lungs- diffuse mild wheezing; no respiratory distress Cardiovascular- RRR; I/ systolic murmur at base; no gallop appreciated; no JVD ; trace pretibial edema Abdomen- + bowel sounds, soft, nontender Extremities- no cyanosis; no calf tenderness Neuro- alert, oriented, mild confusion Skin- warm & dry . Laboratory Results: Last 24 Hours Test 08/13/17 05:33 08/13/17 06:48 08/13/17 11:37 08/13/17 16:48 White Blood Count 10.36 K/uL Red Blood Count 3.47 M/uL Hemoglobin 9.8 g/dL Hematocrit 31.7 % Mean Corpuscular Volume 91.4 fL Mean Corpuscular Hemoglobin 28.2 pg Mean Corpuscular Hemoglobin Concent 30.9 g/dl RDW Standard Deviation 50.0 fL RDW Coefficient of Variation 15.0 % Platelet Count 208 K/uL Mean Platelet Volume 8.8 fL Sodium Level 139 mmol/L Potassium Level 5.1 mmol/L Chloride Level 111 mmol/L Carbon Dioxide Level 27 mmol/L Anion Gap 1.0 mmol/L Blood Urea Nitrogen 50 mg/dl Creatinine 3.05 mg/dl Est Creatinine Clear Calc Drug Dose 21.8 ml/min Estimated GFR () 20.9 Estimated GFR (Non- 18.0 BUN/Creatinine Ratio 16.5 Random Glucose 125 mg/dl Calcium Level 8.7 mg/dl Procalcitonin 0.66 ng/ml Bedside Glucose 111 mg/dl 147 mg/dl 122 mg/dl Assessment & Plan PROBABLE SEPSIS Met criteria for sepsis per current CMS definition. Probably source = urinary tract. Hemodynamically stable. Lactate < 2. Does not require aggressive fluid resuscitation. Blood and urine cultures obtained. Empiric Rx with IV imipenem / cilastatin + daptomycin pending culture results. ID consulted. Clinically improved. ALTERED MENTAL STATUS Probable encephalopathy secondary to infection. CKD IV / ACUTE KIDNEY INJURY CKD IV with fluctuating creatines over past several months. Baseline creatinine seems to be around 2.6 - 2.8. Recently restarted on furosemide. Serum creatinine at time of admission was 3.17. Management of sepsis as discussed below. IV fluids. Creatinine today = 3.05. Nephrology consulted. Follow. CORONARY ARTERY DISEASE No anginal symptoms. Continue aspirin, metoprolol, statin. CHRONIC SYSTOLIC CHF History of chronic left ventricular systolic heart failure with LVEF of 40-45%. Has some dependent edema, but no CHF on chest x-ray. Hold diuretics because of elevated creatinine. Diurese as needed. COPD / CHRONIC HYPOXIC RESPIRATORY FAILURE Pulmonary status appears to be stable. Continue O2 + PRN bronchodilators. LUNG CANCER Non-small cell carcinoma of right lung. Has been followed by [facility] [place] Pulmonary Medicine. S/P radiation therapy. Outpatient follow-up with Pulmonary Medicine. DM TYPE 2 Usually fairly well-controlled. Hemoglobin A1c = 7.8 in clinic on 07/07/17. Hold oral agents during hospital stay. Lantus + NovoLog per protocol. Fasting blood sugar this morning = 111. LEFT THIGH PAIN Venous duplex negative for DVT. VTE PROPHYLAXIS No anticoagulants due to gross hematuria. SCD's. Ambulated. RESUSCITATION STATUS Full code as outlined in admission history and physical. DISPOSITION Expected discharge to home. Internal Medicine follow-up with Dr. Guerra. . Current Inpatient Medications: Current Inpatient Medications Medications (Trade) Dose Ordered Sig/Tonia Route Start Time Stop Time Status Last Admin Dose Admin Insulin Glargine (Lantus Solostar Pen) 10 units BID SC 08/12/17 21:00 09/11/17 20:59 08/13/17 20:50 10 UNITS Insulin Aspart (novoLOG ASPART) SLIDING SCALE G... ACHS OR 08/12/17 21:00 09/11/17 20:59 08/13/17 17:12 1 UNITS Aspirin (Ecotrin Tab) 81 mg DAILY PO 08/13/17 09:00 09/12/17 08:59 08/13/17 07:58 81 MG Finasteride (Proscar Tab) 5 mg DAILY PO 08/13/17 09:00 09/12/17 08:59 08/13/17 07:58 5 MG Gabapentin (Neurontin Cap) 200 mg HS PO 08/12/17 21:00 09/11/17 20:59 08/13/17 20:47 200 MG Levalbuterol (Xopenex 1.25MG/ 3ML Neb) 1.25 mg Q6H PRN INH 08/12/17 19:15 09/11/17 19:14 Metoprolol Succinate (Toprol Xl Tab) 12.5 mg DAILY PO 08/13/17 09:00 09/12/17 08:59 08/13/17 07:59 12.5 MG Pantoprazole Sodium (Protonix Tab) 40 mg DAILY PO 08/13/17 09:00 09/12/17 08:59 08/13/17 07:58 40 MG Senna (Senokot Tab) 17.2 mg UD PRN PO 08/12/17 19:15 09/11/17 19:14 Simvastatin (Zocor Tab) 20 mg HS PO 08/12/17 21:00 09/11/17 20:59 Future Hold 08/12/17 22:12 20 MG Tamsulosin HCl (Flomax Cap) 0.4 mg HS PO 08/12/17 21:00 09/11/17 20:59 08/13/17 20:47 0.4 MG Imipenem/ Cilastatin Sodium 500 mg/Dextrose 110 ml @ 100 mls/hr Q12H IV 08/13/17 08:00 08/23/17 07:59 08/13/17 20:25 100 MLS/HR Ondansetron HCl (Zofran Inj) 4 mg Q6H PRN IV 08/12/17 20:15 09/11/17 20:14 Imipenem/ Cilastatin Sodium (Consult) 1 ea UD PRN N/A 08/12/17 21:00 09/11/17 20:59 Fluconazole (Diflucan Tab) 50 mg QAM PO 08/14/17 09:00 08/23/17 08:59
[2017-08-14] VITALS (7 sets, daily range): BP systolic 109–124; BP diastolic 64–73; PULSE 71–85; TEMP 36.3–36.7; O2SAT 96–100
[2017-08-14] MEDS: ACETAMINOPHEN 325 MG TAB PO PRN (00:46)
[2017-08-14 07:09] LABS: HEMATOCRIT 29.4 % (42-52); MEAN CELL VOLUME 92.5 fL (80-100); MEAN CORPUSCULAR HEMOGLOBIN 28.3 pg (25-34); MEAN CORPUSCULAR HGB CONC 30.6 g/dl (32-36); MEAN PLATELET VOLUME 8.8 fL (7.4-10.4); PLATELET COUNT 202 K/uL (130-400); RED CELL DISTRIBUTION WIDTH CV 15.3 % (11.5-14.5); RED CELL DISTRIBUTION WIDTH SD 52.1 fL (36.4-46.3); WHITE BLOOD COUNT 7.57 K/uL (4.8-10.8)
--- NOTE | 2017-08-14 07:31 | DIAGNOSTIC IMAGING REPORT ---
CHEST ONE VIEW PORTABLE HISTORY: 82 years-old Male sepsis, CHF acute sepsis with congestive heart failure COMPARISON: Chest radiograph 08/12/2017 and 07/23/2017, CT abdomen and pelvis 07/23/2017, chest CT 07/06/2017 TECHNIQUE: Portable AP view of the chest FINDINGS: Cardiac silhouette is again mildly enlarged. Left subclavian pacer is noted with leads unchanged. There is no pneumothorax. 2.5 x 1.1 cm nodular opacity projects over the right midlung, possibly correlating with pulmonary nodule within the right upper lobe seen on comparison CT of the chest. Trace bilateral pleural effusions with subsegmental bibasilar opacities. No overt pulmonary edema. Degenerative changes of the shoulders and spine. IMPRESSION: 1. Cardiomegaly without overt pulmonary edema. 2. Trace bilateral pleural effusions with bibasilar subsegmental opacities suggesting atelectasis or pneumonitis. 3. 2.5 cm nodular opacity of the right midlung may correlate with the previously described pulmonary nodule of the right upper lobe seen on comparison chest CT. The above report was generated using voice recognition software. It may contain grammatical, syntax or spelling errors. Electronically signed by: Ariel Shane M.D. 08/14/2017 7:30 AM Dictated Date/Time: 08/14/2017 7:26 AM
[2017-08-14 07:51] LABS: CALCIUM 8.5 mg/dl (8.5-10.1); CREATININE 3.15 mg/dl (0.60-1.40)
[2017-08-14] MEDS: ASPIRIN 81 MG ECTAB PO SCH (08:35)
[2017-08-14] MEDS: IMIPENEM/CILASTATIN IV 500 MG in DEXTROSE 5% 100ML 100 ML IV SCH (08:35)
[2017-08-14] MEDS: PANTOprazole SOD 40 MG TAB PO SCH (08:35)
[2017-08-14] MEDS: FINASTERIDE 5 MG TAB PO SCH (08:36)
[2017-08-14] MEDS: METOPROLOL SUCC 25MG EXT REL TAB PO SCH (08:36)
[2017-08-14] MEDS: INSULIN GLARGINE SOLOSTAR 100 UNITS/ML 3 ML PEN SC SCH ×2 (08:37→21:23)
[2017-08-14] MEDS: INSULIN ASPART 100 UNITS/ML 3 ML PEN SC SCH ×4 (08:41→21:23)
[2017-08-14] MEDS ORDERED: FLUCONAZOLE 50 MG TAB PO SCH (09:00)
--- NOTE | 2017-08-14 10:13 | Nephrology Progress Note ---
Nephrology Progress Note Date of Service: Aug 14, 2017. Subjective has been up and out of bed w/ asst today >> now quite tired; denies pain, denies sob, denies n/v; ?still mild confusion though per nursing much improved Objective Date Time Temp Pulse Resp B/P (MAP) Pulse Ox O2 Delivery O2 Flow Rate FiO2 08/14/17 08:16 36.3 77 19 114/68 (83) 100 Nasal Cannula 3.0 08/14/17 08:06 96 Room Air 08/14/17 04:00 97 Nasal Cannula 3.0 08/14/17 03:38 36.5 81 22 124/64 (84) 98 Nasal Cannula 3.0 08/13/17 23:59 97 Nasal Cannula 3.0 08/13/17 23:50 37.1 96 18 121/74 (90) 95 Nasal Cannula 3.0 08/13/17 20:00 97 Nasal Cannula 3.0 08/13/17 19:46 36.9 98 20 130/75 (93) 97 Nasal Cannula 3.0 08/13/17 15:24 36.7 91 20 138/77 (97) 95 Room Air 08/13/17 15:00 96 Nasal Cannula 2.0 08/13/17 12:33 Nasal Cannula 2.0 08/13/17 12:15 36.8 85 18 122/74 (90) 96 Physical Exam: GENERAL: A& 0 x 3 but limited insight/ hx. on 02NC HEENT: slightly dry MM NECK: Supple. CARDIOVASCULAR: RRR; soft SM, distant HS; no edema CHEST: Bilaterally clear to auscultation w/ very diminished air entr GASTROINTESTINAL: Normal bowel sounds, soft, nontender. no barker EXTREMITIES: no edema; no c/c Neuro: ma, fluent speech Current Inpatient Medications Medications (Trade) Dose Ordered Sig/Tonia Route Start Time Stop Time Status Last Admin Dose Admin Insulin Glargine (Lantus Solostar Pen) 10 units BID SC 08/12/17 21:00 09/11/17 20:59 08/14/17 08:37 10 UNITS Insulin Aspart (novoLOG ASPART) SLIDING SCALE G... ACHS SC 08/12/17 21:00 09/11/17 20:59 08/14/17 08:41 2 UNITS Aspirin (Ecotrin Tab) 81 mg DAILY PO 08/13/17 09:00 09/12/17 08:59 08/14/17 08:35 81 MG Finasteride (Proscar Tab) 5 mg DAILY PO 08/13/17 09:00 09/12/17 08:59 08/14/17 08:36 5 MG Gabapentin (Neurontin Cap) 200 mg HS PO 08/12/17 21:00 09/11/17 20:59 08/13/17 20:47 200 MG Levalbuterol (Xopenex 1.25MG/ 3ML Neb) 1.25 mg Q6H PRN INH 08/12/17 19:15 09/11/17 19:14 Metoprolol Succinate (Toprol Xl Tab) 12.5 mg DAILY PO 08/13/17 09:00 09/12/17 08:59 08/14/17 08:36 12.5 MG Pantoprazole Sodium (Protonix Tab) 40 mg DAILY PO 08/13/17 09:00 09/12/17 08:59 08/14/17 08:35 40 MG Senna (Senokot Tab) 17.2 mg UD PRN PO 08/12/17 19:15 09/11/17 19:14 Simvastatin (Zocor Tab) 20 mg HS PO 08/12/17 21:00 09/11/17 20:59 Future Hold 08/12/17 22:12 20 MG Tamsulosin HCl (Flomax Cap) 0.4 mg HS PO 08/12/17 21:00 09/11/17 20:59 08/13/17 20:47 0.4 MG Imipenem/ Cilastatin Sodium 500 mg/Dextrose 110 ml @ 100 mls/hr Q12H IV 08/13/17 08:00 08/23/17 07:59 08/14/17 08:35 100 MLS/HR Ondansetron HCl (Zofran Inj) 4 mg Q6H PRN IV 08/12/17 20:15 09/11/17 20:14 Imipenem/ Cilastatin Sodium (Consult) 1 ea UD PRN N/A 08/12/17 21:00 09/11/17 20:59 Fluconazole (Diflucan Tab) 50 mg QAM PO 08/14/17 09:00 08/23/17 08:59 08/14/17 08:36 50 MG Acetaminophen (Tylenol Tab) 650 mg Q6 PRN PO 08/13/17 22:15 09/12/17 22:14 08/14/17 00:46 650 MG Last 24 Hours Test 08/13/17 11:37 08/13/17 16:48 08/13/17 20:48 08/14/17 06:09 Bedside Glucose 147 mg/dl 122 mg/dl 176 mg/dl White Blood Count 7.57 K/uL Red Blood Count 3.18 M/uL Hemoglobin 9.0 g/dL Hematocrit 29.4 % Mean Corpuscular Volume 92.5 fL Mean Corpuscular Hemoglobin 28.3 pg Mean Corpuscular Hemoglobin Concent 30.6 g/dl RDW Standard Deviation 52.1 fL RDW Coefficient of Variation 15.3 % Platelet Count 202 K/uL Mean Platelet Volume 8.8 fL Sodium Level 141 mmol/L Potassium Level mmol/L Chloride Level 109 mmol/L Carbon Dioxide Level 25 mmol/L Anion Gap 7.0 mmol/L Blood Urea Nitrogen 50 mg/dl Creatinine 3.15 mg/dl Est Creatinine Clear Calc Drug Dose 20.8 ml/min Estimated GFR () 20.1 Estimated GFR (Non- 17.3 BUN/Creatinine Ratio 15.9 Random Glucose 105 mg/dl Calcium Level 8.5 mg/dl Test 08/14/17 06:44 08/14/17 08:15 Bedside Glucose 107 mg/dl Potassium Level 4.8 mmol/L Assessment & Plan 82-year-old male with a baseline chronic kidney disease 4 and baseline creatinine in [facility] labs mid 2's/eGFR about 20, also CAD s/p stent and chronic systolic HF (EF 40%), AV block s/p pacer, DM, 02 dependent COPD, non small cell lung CA first dx 2010 and s/p 05/2017 XRT, SHANKAR, stones, HL, who had outpt cystoscopy w/ prophlyactic abtx 24 hr prior to admission admitted 08/12 w/ probable sepsis/K pniae UTI, encephalopathy. Baseline creatinine 2.6-2.8; baseline appears to have progressed some in 2018 to this level. GRANT on CKD4, nonoliguric ATN in setting of sepsis of urinary origin, on imipenem ; had also just prior to admission been restarted on furosemide -chemistries acceptable; minimal change in renal function so far; BP / volume status acceptable as is hgb -cont to hold diuretic; no need for IVF at this time -daily bmp -no acute indication for dialysis Appreciate consult; will follow with you
--- NOTE | 2017-08-14 11:11 | Progress Note ---
Subjective Date of Service: Aug 14, 2017. Subjective Pt evaluation today including: conversation w/ patient, physical exam, chart review, lab review pt seen in followup, much more comfortable today, no f/c. urine culture with K. pneumo. toelrating abx. blood cultures negative. no pain today. no f/c. no cp, sob, cough, no abd pain, no n/v/d. all remaining ros reviewed and are negative. Problem List Medical Problems: (1) Altered mental status Status: Acute (2) Altered mental status Status: Acute (3) Altered mental status Status: Acute (4) Altered mental status Status: Acute (5) Change in mental status Status: Acute (6) Confusion Status: Acute (7) Dehydration Status: Acute (8) Dehydration Status: Acute (9) Failure of outpatient treatment Status: Acute (10) Insomnia Status: Acute (11) Penile pain Status: Acute (12) TIA (transient ischemic attack) Status: Acute (13) UTI (urinary tract infection) Status: Acute (14) Weakness Status: Acute (15) Weakness Status: Acute Objective Vital Signs Date Time Temp Pulse Resp B/P (MAP) Pulse Ox O2 Delivery O2 Flow Rate FiO2 08/14/17 08:16 36.3 77 19 114/68 (83) 100 Nasal Cannula 3.0 08/14/17 08:06 96 Room Air 08/14/17 04:00 97 Nasal Cannula 3.0 08/14/17 03:38 36.5 81 22 124/64 (84) 98 Nasal Cannula 3.0 08/13/17 23:59 97 Nasal Cannula 3.0 08/13/17 23:50 37.1 96 18 121/74 (90) 95 Nasal Cannula 3.0 08/13/17 20:00 97 Nasal Cannula 3.0 08/13/17 19:46 36.9 98 20 130/75 (93) 97 Nasal Cannula 3.0 08/13/17 15:24 36.7 91 20 138/77 (97) 95 Room Air 08/13/17 15:00 96 Nasal Cannula 2.0 08/13/17 12:33 Nasal Cannula 2.0 08/13/17 12:15 36.8 85 18 122/74 (90) 96 Physical Exam General Appearance: WD/WN, no apparent distress Eyes: normal inspection, EOMI Neck: supple Respiratory/Chest: lungs clear, normal breath sounds, no respiratory distress Cardiovascular: regular rate, rhythm, no edema Abdomen: non tender, soft Extremities: non-tender, no pedal edema Neurologic/Psychiatric: alert, oriented x 3 Skin: normal color Laboratory Results Item Value Date Time Urine Culture - Preliminary Resulted 08/12/17 1822 Urine,Catheterized Klebsiella Pneumoniae Esbl Blood Culture - Preliminary Resulted 08/12/17 1720 Blood NO GROWTH TO DATE. Blood Culture - Preliminary Resulted 08/12/17 1901 Blood NO GROWTH TO DATE. Last 24 Hours Test 08/13/17 11:37 08/13/17 16:48 08/13/17 20:48 08/14/17 06:09 Bedside Glucose 147 mg/dl 122 mg/dl 176 mg/dl White Blood Count 7.57 K/uL Red Blood Count 3.18 M/uL Hemoglobin 9.0 g/dL Hematocrit 29.4 % Mean Corpuscular Volume 92.5 fL Mean Corpuscular Hemoglobin 28.3 pg Mean Corpuscular Hemoglobin Concent 30.6 g/dl RDW Standard Deviation 52.1 fL RDW Coefficient of Variation 15.3 % Platelet Count 202 K/uL Mean Platelet Volume 8.8 fL Sodium Level 141 mmol/L Potassium Level mmol/L Chloride Level 109 mmol/L Carbon Dioxide Level 25 mmol/L Anion Gap 7.0 mmol/L Blood Urea Nitrogen 50 mg/dl Creatinine 3.15 mg/dl Est Creatinine Clear Calc Drug Dose 20.8 ml/min Estimated GFR () 20.1 Estimated GFR (Non- 17.3 BUN/Creatinine Ratio 15.9 Random Glucose 105 mg/dl Calcium Level 8.5 mg/dl Test 08/14/17 06:44 08/14/17 08:15 Bedside Glucose 107 mg/dl Potassium Level 4.8 mmol/L Assessment and Plan (1) UTI (urinary tract infection) Assessment & Plan: will change abx to ertapenem, follow blood cultures, negative to date. would give 10 days total. alternative would be renal dosed levaquin.
[2017-08-14] MEDS ORDERED: ERTAPENEM IV 1 GM in SODIUM CHLOR 0.9% AD-VAN 50ML 50 ML IV SCH (11:15)
[2017-08-14] MEDS: ERTAPENEM IV 500 MG in SODIUM CHLORIDE 0.9% 50 ML IV SCH (11:54)
--- NOTE | 2017-08-14 19:01 | Progress Note ---
Medicine Progress Note Date & Time of Visit: Aug 14, 2017 at 16:40 . Subjective CC: Follow-up visit for sepsis and other problems. HPI: Better today. No fever or chills. Less confused. No chest pain. No cough or shortness of breath. No nausea or vomiting. Experiencing multiple loose stools. Voiding without difficulty. Dysuria improved. ROS: As noted above in HPI. . Objective Last 8 Hrs Date Time Temp Pulse Resp B/P (MAP) Pulse Ox O2 Delivery O2 Flow Rate FiO2 08/14/17 15:09 36.7 85 20 109/64 (79) 98 Room Air 08/14/17 12:05 36.3 71 18 115/73 (87) 100 Nasal Cannula 3.0 08/14/17 12:02 Room Air Physical Exam: General- lying in bed, no distress Lungs- diffuse mild wheezing; few basilar rales; no respiratory distress Cardiovascular- RRR; I/ systolic murmur at base; no gallop appreciated; no JVD ; trace pretibial edema Abdomen- + bowel sounds, soft, nontender Extremities- no cyanosis; no calf tenderness Neuro- alert, oriented, less confused Skin- warm & dry . Laboratory Results: Last 24 Hours Test 08/13/17 20:48 08/14/17 06:09 08/14/17 06:44 08/14/17 08:15 Bedside Glucose 176 mg/dl 107 mg/dl White Blood Count 7.57 K/uL Red Blood Count 3.18 M/uL Hemoglobin 9.0 g/dL Hematocrit 29.4 % Mean Corpuscular Volume 92.5 fL Mean Corpuscular Hemoglobin 28.3 pg Mean Corpuscular Hemoglobin Concent 30.6 g/dl RDW Standard Deviation 52.1 fL RDW Coefficient of Variation 15.3 % Platelet Count 202 K/uL Mean Platelet Volume 8.8 fL Sodium Level 141 mmol/L Potassium Level mmol/L 4.8 mmol/L Chloride Level 109 mmol/L Carbon Dioxide Level 25 mmol/L Anion Gap 7.0 mmol/L Blood Urea Nitrogen 50 mg/dl Creatinine 3.15 mg/dl Est Creatinine Clear Calc Drug Dose 20.8 ml/min Estimated GFR () 20.1 Estimated GFR (Non- 17.3 BUN/Creatinine Ratio 15.9 Random Glucose 105 mg/dl Calcium Level 8.5 mg/dl Test 08/14/17 11:24 08/14/17 16:47 Bedside Glucose 188 mg/dl 141 mg/dl Assessment & Plan PROBABLE SEPSIS Met criteria for sepsis per current CMS definition. Probably source = urinary tract. Hemodynamically stable. Lactate < 2. Did not require aggressive fluid resuscitation. Blood and urine cultures obtained. Received empiric Rx with IV imipenem / cilastatin + daptomycin pending culture results. ID consulted. Clinically improved. Urine culture growing Klebsiella pneumoniae (ESBL). Best to avoid quinolones because of relatively high QTc and history of delirium. Therapy changed to IV ertapenem by ID; ten-day course of therapy recommended. ALTERED MENTAL STATUS Probable encephalopathy secondary to infection. Improved. CKD IV / ACUTE KIDNEY INJURY CKD IV with fluctuating creatines over past several months. Baseline creatinine seems to be around 2.6 - 2.8. Recently restarted on furosemide. Serum creatinine at time of admission was 3.17. Management of sepsis as discussed below. Received IV fluids. Creatinine today = 3.15. Nephrology consulted. Has bibasilar rales today, IV fluids discontinued. Follow. CORONARY ARTERY DISEASE No anginal symptoms. Continue aspirin, metoprolol, statin. CHRONIC SYSTOLIC CHF History of chronic left ventricular systolic heart failure with LVEF of 40-45%. Had some dependent edema, but no CHF on chest x-ray in ED. Hold diuretics because of elevated creatinine. Chest x-ray today demonstrated cardiomegaly, no pulmonary edema. Diurese as needed. COPD / CHRONIC HYPOXIC RESPIRATORY FAILURE Pulmonary status appears to be stable. Continue O2 + PRN bronchodilators. LUNG CANCER Non-small cell carcinoma of right lung. Has been followed by [facility] [place] Pulmonary Medicine. S/P radiation therapy. Outpatient follow-up with Pulmonary Medicine. DM TYPE 2 Usually fairly well-controlled. Hemoglobin A1c = 7.8 in clinic on 07/07/17. Hold oral agents during hospital stay. Lantus + NovoLog per protocol. Fasting blood sugar this morning = 107. LEFT THIGH PAIN Venous duplex negative for DVT. VTE PROPHYLAXIS No anticoagulants due to gross hematuria. SCD's. Ambulate. RESUSCITATION STATUS Full code as outlined in admission history and physical. DISPOSITION Anticipated need for skilled care. PT/OT evaluations. Consult Case Management. Internal Medicine follow-up with Dr. Guerra. . Current Inpatient Medications: Current Inpatient Medications Medications (Trade) Dose Ordered Sig/Tonia Route Start Time Stop Time Status Last Admin Dose Admin Insulin Glargine (Lantus Solostar Pen) 10 units BID SC 08/12/17 21:00 09/11/17 20:59 08/14/17 08:37 10 UNITS Insulin Aspart (novoLOG ASPART) SLIDING SCALE G... ACHS SC 08/12/17 21:00 09/11/17 20:59 08/14/17 17:30 4 UNITS Aspirin (Ecotrin Tab) 81 mg DAILY PO 08/13/17 09:00 09/12/17 08:59 08/14/17 08:35 81 MG Finasteride (Proscar Tab) 5 mg DAILY PO 08/13/17 09:00 09/12/17 08:59 08/14/17 08:36 5 MG Gabapentin (Neurontin Cap) 200 mg HS PO 08/12/17 21:00 09/11/17 20:59 08/13/17 20:47 200 MG Levalbuterol (Xopenex 1.25MG/ 3ML Neb) 1.25 mg Q6H PRN INH 08/12/17 19:15 09/11/17 19:14 Metoprolol Succinate (Toprol Xl Tab) 12.5 mg DAILY PO 08/13/17 09:00 09/12/17 08:59 08/14/17 08:36 12.5 MG Pantoprazole Sodium (Protonix Tab) 40 mg DAILY PO 08/13/17 09:00 09/12/17 08:59 08/14/17 08:35 40 MG Senna (Senokot Tab) 17.2 mg UD PRN PO 08/12/17 19:15 09/11/17 19:14 Simvastatin (Zocor Tab) 20 mg HS PO 08/12/17 21:00 09/11/17 20:59 Future Hold 08/12/17 22:12 20 MG Tamsulosin HCl (Flomax Cap) 0.4 mg HS PO 08/12/17 21:00 09/11/17 20:59 08/13/17 20:47 0.4 MG Ondansetron HCl (Zofran Inj) 4 mg Q6H PRN IV 08/12/17 20:15 09/11/17 20:14 Acetaminophen (Tylenol Tab) 650 mg Q6 PRN PO 08/13/17 22:15 09/12/17 22:14 08/14/17 00:46 650 MG Ertapenem 500 mg/ Sodium Chloride 55 ml @ 110 mls/hr Q24H IV 08/14/17 11:30 08/24/17 11:29 08/14/17 11:54 110 MLS/HR
[2017-08-14] MEDS: GABAPENTIN 100 MG CAP PO SCH (21:20)
[2017-08-14] MEDS: TAMSULOSIN HCL 0.4 MG CAP PO SCH (21:20)
[2017-08-15] VITALS (10 sets, daily range): BP systolic 113–148; BP diastolic 67–75; PULSE 79–104; TEMP 36.4–36.9; O2SAT 94–99
[2017-08-15 06:15] LABS: HEMATOCRIT 30.2 % (42-52); HEMOGLOBIN 9.3 g/dL (14.0-18.0); MEAN CELL VOLUME 89.9 fL (80-100); MEAN CORPUSCULAR HEMOGLOBIN 27.7 pg (25-34); MEAN CORPUSCULAR HGB CONC 30.8 g/dl (32-36); MEAN PLATELET VOLUME 8.9 fL (7.4-10.4); PLATELET COUNT 200 K/uL (130-400); RED CELL DISTRIBUTION WIDTH CV 15.1 % (11.5-14.5); RED CELL DISTRIBUTION WIDTH SD 49.5 fL (36.4-46.3); WHITE BLOOD COUNT 5.74 K/uL (4.8-10.8)
[2017-08-15 06:50] LABS: CALCIUM 8.7 mg/dl (8.5-10.1); CREATININE 3.04 mg/dl (0.60-1.40); POTASSIUM 4.8 mmol/L (3.5-5.1)
[2017-08-15] MEDS: ASPIRIN 81 MG ECTAB PO SCH (08:11)
[2017-08-15] MEDS: FINASTERIDE 5 MG TAB PO SCH (08:11)
[2017-08-15] MEDS: PANTOprazole SOD 40 MG TAB PO SCH (08:11)
[2017-08-15] MEDS: METOPROLOL SUCC 25MG EXT REL TAB PO SCH (08:11)
[2017-08-15] MEDS: INSULIN ASPART 100 UNITS/ML 3 ML PEN SC SCH ×4 (08:12→20:34)
[2017-08-15] MEDS: INSULIN GLARGINE SOLOSTAR 100 UNITS/ML 3 ML PEN SC SCH ×2 (08:13→20:33)
[2017-08-15] MEDS: ERTAPENEM IV 500 MG in SODIUM CHLORIDE 0.9% 50 ML IV SCH (12:01)
--- NOTE | 2017-08-15 15:14 | Progress Note ---
Subjective Date of Service: August 15, 2017. Subjective tolerating abx, blood cultures negative. afebrile. wbc nml. Problem List Medical Problems: (1) Altered mental status Status: Acute (2) Altered mental status Status: Acute (3) Altered mental status Status: Acute (4) Altered mental status Status: Acute (5) Change in mental status Status: Acute (6) Confusion Status: Acute (7) Dehydration Status: Acute (8) Dehydration Status: Acute (9) Failure of outpatient treatment Status: Acute (10) Insomnia Status: Acute (11) Penile pain Status: Acute (12) TIA (transient ischemic attack) Status: Acute (13) UTI (urinary tract infection) Status: Acute (14) Weakness Status: Acute (15) Weakness Status: Acute Objective Vital Signs Date Time Temp Pulse Resp B/P (MAP) Pulse Ox O2 Delivery O2 Flow Rate FiO2 08/15/17 12:00 99 Nasal Cannula 2.0 08/15/17 11:55 36.5 79 20 114/67 (83) 96 Room Air 08/15/17 08:00 99 Nasal Cannula 2.0 08/15/17 07:48 36.4 104 22 126/75 (92) 99 Nasal Cannula 2.0 08/15/17 04:06 Nasal Cannula 2.0 08/15/17 03:30 36.9 82 18 114/70 (85) 94 08/15/17 03:30 36.9 08/15/17 00:30 36.6 95 18 148/75 (99) 94 08/15/17 00:01 Nasal Cannula 2.0 08/14/17 20:45 Nasal Cannula 2.0 08/14/17 19:51 36.7 83 20 124/72 (89) 100 Nasal Cannula 2.0 08/14/17 15:25 Room Air Laboratory Results Item Value Date Time Blood Culture - Preliminary Resulted 08/12/17 1901 Blood NO GROWTH TO DATE. Urine Culture - Final Complete 08/12/17 1822 Urine,Catheterized Klebsiella Pneumoniae Esbl Blood Culture - Preliminary Resulted 08/12/17 1720 Blood NO GROWTH TO DATE. Last 24 Hours Test 08/14/17 16:47 08/14/17 21:15 08/15/17 05:59 08/15/17 07:26 Bedside Glucose 141 mg/dl 195 mg/dl 124 mg/dl White Blood Count 5.74 K/uL Red Blood Count 3.36 M/uL Hemoglobin 9.3 g/dL Hematocrit 30.2 % Mean Corpuscular Volume 89.9 fL Mean Corpuscular Hemoglobin 27.7 pg Mean Corpuscular Hemoglobin Concent 30.8 g/dl RDW Standard Deviation 49.5 fL RDW Coefficient of Variation 15.1 % Platelet Count 200 K/uL Mean Platelet Volume 8.9 fL Sodium Level 142 mmol/L Potassium Level 4.8 mmol/L Chloride Level 113 mmol/L Carbon Dioxide Level 23 mmol/L Anion Gap 7.0 mmol/L Blood Urea Nitrogen 50 mg/dl Creatinine 3.04 mg/dl Est Creatinine Clear Calc Drug Dose 21.6 ml/min Estimated GFR () 20.9 Estimated GFR (Non- 18.1 BUN/Creatinine Ratio 16.3 Random Glucose 120 mg/dl Calcium Level 8.7 mg/dl Test 08/15/17 11:32 Bedside Glucose 161 mg/dl Assessment and Plan (1) UTI (urinary tract infection) Assessment & Plan: will change abx to ertapenem, follow blood cultures, negative to date. would give 10 days total. alternative would be renal dosed levaquin.
--- NOTE | 2017-08-15 17:39 | Progress Note ---
Internal Med Progress Note Date of Service: August 15, 2017. Provider Documentation: SUBJECTIVE: Have discussed with patient and his about that based on infectious disease recommendations, the patient will likely to need at least 1 more week of IV antibiotics. Have discussed the possibility of midline/PICC line. Patient states that he does not understand what a PICC line is despite multiple attempts to explain by medical doctor. Patient's appears to understand more about the risks and benefits. But at this time there is no decision made on whether this would be something that the patient or his would consent to at this line. OBJECTIVE: Exam: General-no acute distress Eyes- EOMI Neck- no JVD Lungs- CTABL, no wheezing Heart- RRR Abdomen- truncal obesity, soft, nontender, + bowel sounds Extremities- no edema Neuro- awake and alert ASSESSMENT & PLAN: PROBABLE SEPSIS Met criteria for sepsis per current CMS definition. Probably source is urinary tract. Received empiric Rx with IV imipenem / cilastatin + daptomycin pending culture results. Urine culture growing Klebsiella pneumoniae (ESBL). Therapy changed to IV ertapenem by ID on 08/14/17 for10 days total; alternative would be renal dosed levaquin as per previous patient's hospitalist, avoid quinolones because of relatively high QTc and history of delirium have discussed with patient and patient's about midline/PICC line but no decision made as of yet ALTERED MENTAL STATUS Probable encephalopathy secondary to infection. Improved but patient does not appear to be able to make complex medical decisions currently CKD IV / ACUTE KIDNEY INJURY CKD IV with fluctuating creatines over past several months. Baseline creatinine seems to be around 2.6 - 2.8 Nephrology: continue to hold diuretic; no need for IVF at this time CORONARY ARTERY DISEASE No anginal symptoms. Continue aspirin, metoprolol, statin. CHRONIC SYSTOLIC CHF History of chronic left ventricular systolic heart failure with LVEF of 40-45%. Had some dependent edema, but no CHF on chest x-ray in ED. Hold diuretics because of elevated creatinine. COPD / CHRONIC HYPOXIC RESPIRATORY FAILURE Pulmonary status appears to be stable. Continue O2 + PRN bronchodilators. LUNG CANCER Non-small cell carcinoma of right lung. Has been followed by [facility] [place] [facility]. S/P radiation therapy. Outpatient follow-up with Pulmonary Medicine. DM TYPE 2 Usually fairly well-controlled. Hemoglobin A1c = 7.8 in clinic on 07/07/17. Hold oral agents during hospital stay. Lantus + NovoLog per protocol. Fasting blood sugar this morning = 107. LEFT THIGH PAIN Venous duplex negative for DVT. VTE PROPHYLAXIS No anticoagulants due to gross hematuria. SCD's. Ambulate. RESUSCITATION STATUS Full code Patient's Bhavna [phone], Disposition: as per initial PT evaluation, patient may need short term physical rehabilitation Vital Signs: Date Time Temp Pulse Resp B/P (MAP) Pulse Ox O2 Delivery O2 Flow Rate FiO2 08/15/17 16:32 99 Nasal Cannula 2.0 08/15/17 15:47 36.4 81 18 113/67 (82) 95 Room Air 08/15/17 12:00 99 Nasal Cannula 2.0 08/15/17 11:55 36.5 79 20 114/67 (83) 96 Room Air 08/15/17 08:00 99 Nasal Cannula 2.0 08/15/17 07:48 36.4 104 22 126/75 (92) 99 Nasal Cannula 2.0 08/15/17 04:06 Nasal Cannula 2.0 08/15/17 03:30 36.9 82 18 114/70 (85) 94 08/15/17 03:30 36.9 08/15/17 00:30 36.6 95 18 148/75 (99) 94 08/15/17 00:01 Nasal Cannula 2.0 08/14/17 20:45 Nasal Cannula 2.0 08/14/17 19:51 36.7 83 20 124/72 (89) 100 Nasal Cannula 2.0 Lab Results: Results Past 24 Hours Test 08/14/17 21:15 08/15/17 05:59 08/15/17 07:26 08/15/17 11:32 Range/Units Bedside Glucose 195 124 161 70-99 mg/dl White Blood Count 5.74 4.8-10.8 K/uL Red Blood Count 3.36 4.7-6.1 M/uL Hemoglobin 9.3 14.0-18.0 g/dL Hematocrit 30.2 42-52 % Mean Corpuscular Volume 89.9 80-100 fL Mean Corpuscular Hemoglobin 27.7 25-34 pg Mean Corpuscular Hemoglobin Concent 30.8 32-36 g/dl RDW Standard Deviation 49.5 36.4-46.3 fL RDW Coefficient of Variation 15.1 11.5-14.5 % Platelet Count 200 130-400 K/uL Mean Platelet Volume 8.9 7.4-10.4 fL Sodium Level 142 136-145 mmol/L Potassium Level 4.8 3.5-5.1 mmol/L Chloride Level 113 98-107 mmol/L Carbon Dioxide Level 23 21-32 mmol/L Anion Gap 7.0 3-11 mmol/L Blood Urea Nitrogen 50 7-18 mg/dl Creatinine 3.04 0.60-1.40 mg/dl Est Creatinine Clear Calc Drug Dose 21.6 ml/min Estimated GFR () 20.9 Estimated GFR (Non- 18.1 BUN/Creatinine Ratio 16.3 10-20 Random Glucose 120 70-99 mg/dl Calcium Level 8.7 8.5-10.1 mg/dl Test 08/15/17 16:27 Range/Units Bedside Glucose 162 70-99 mg/dl
[2017-08-15] MEDS: ACETAMINOPHEN 325 MG TAB PO PRN (18:56)
[2017-08-15] MEDS: GABAPENTIN 100 MG CAP PO SCH (20:31)
[2017-08-15] MEDS: TAMSULOSIN HCL 0.4 MG CAP PO SCH (20:31)
[2017-08-16 04:02] VITALS: BP 125/67; PULSE 70; TEMP 36.4; O2SAT 99
[2017-08-16 06:11] LABS: BASO % 0.3 %; BASO ABS # 0.02 K/uL (0-0.2); EOS % 1.9 %; EOS ABS # 0.12 K/uL (0-0.5); HEMATOCRIT 30.8 % (42-52); HEMOGLOBIN 9.9 g/dL (14.0-18.0); IG# 0.08 K/uL (0.00-0.02); LYMPH % 16.6 %; LYMPH ABS # 1.04 K/uL (1.2-3.4); MEAN CELL VOLUME 91.1 fL (80-100); MEAN CORPUSCULAR HEMOGLOBIN 29.3 pg (25-34); MEAN CORPUSCULAR HGB CONC 32.1 g/dl (32-36); MEAN PLATELET VOLUME 8.8 fL (7.4-10.4); MONO % 11.5 %; MONO ABS # 0.72 K/uL (0.11-0.59); NEUT % 68.4 %; NEUT ABS # 4.29 K/uL (1.4-6.5); PLATELET COUNT 196 K/uL (130-400); RED CELL DISTRIBUTION WIDTH SD 50.5 fL (36.4-46.3); WHITE BLOOD COUNT 6.27 K/uL (4.8-10.8)
[2017-08-16 06:43] LABS: ALBUMIN 2.5 gm/dl (3.4-5.0); CALCIUM 8.4 mg/dl (8.5-10.1); CREATININE 3.02 mg/dl (0.60-1.40); POTASSIUM 4.8 mmol/L (3.5-5.1)
[2017-08-16 06:46] LABS: TOTAL PROTEIN 6.6 gm/dl (6.4-8.2)
[2017-08-16 08:24] VITALS: BP 125/67; PULSE 70; TEMP 36.4; O2SAT 98
[2017-08-16] MEDS: FINASTERIDE 5 MG TAB PO SCH (08:55)
[2017-08-16] MEDS: ASPIRIN 81 MG ECTAB PO SCH (08:55)
[2017-08-16] MEDS: METOPROLOL SUCC 25MG EXT REL TAB PO SCH (08:55)
[2017-08-16] MEDS: PANTOprazole SOD 40 MG TAB PO SCH (08:55)
[2017-08-16] MEDS: INSULIN ASPART 100 UNITS/ML 3 ML PEN SC SCH ×4 (09:00→21:08)
[2017-08-16] MEDS: INSULIN GLARGINE SOLOSTAR 100 UNITS/ML 3 ML PEN SC SCH ×2 (09:01→21:07)
[2017-08-16 10:04] VITALS: BP 125/67; PULSE 70; TEMP 36.4; O2SAT 98
[2017-08-16 10:21] VITALS: O2SAT 95
--- NOTE | 2017-08-16 10:28 | Nephrology Progress Note ---
Nephrology Progress Note Date of Service: August 16, 2017. Subjective c/o poor quality sleep d/t frequent assessment/interruptions; denies pain, denies sob, denies n/v; food tastes poorly to him and has for a long while Objective Date Time Temp Pulse Resp B/P (MAP) Pulse Ox O2 Delivery O2 Flow Rate FiO2 08/16/17 10:21 95 Room Air 08/16/17 10:04 36.4 70 18 98 2.0 08/16/17 08:30 Room Air 08/16/17 08:24 36.4 70 18 125/67 (86) 98 08/16/17 04:02 36.4 70 20 125/67 (86) 99 Nasal Cannula 2.0 08/16/17 04:00 Nasal Cannula 08/16/17 00:00 Nasal Cannula 08/15/17 20:11 99 Nasal Cannula 2.0 08/15/17 19:55 36.5 80 18 113/68 (83) 97 Nasal Cannula 2.0 08/15/17 16:32 99 Nasal Cannula 2.0 08/15/17 15:47 36.4 81 18 113/67 (82) 95 Room Air 08/15/17 12:00 99 Nasal Cannula 2.0 08/15/17 11:55 36.5 79 20 114/67 (83) 96 Room Air Physical Exam: GENERAL: A& 0 x 3 but limited insight/ hx. on RA HEENT: slightly dry MM NECK: Supple. CARDIOVASCULAR: RRR; soft SM, distant HS; no edema CHEST: Bilaterally clear to auscultation w/ very diminished air entry GASTROINTESTINAL: Normal bowel sounds, soft, nontender. no barker EXTREMITIES: no edema; no c/c Neuro: ma, fluent speech Current Inpatient Medications Medications (Trade) Dose Ordered Sig/Tonia Route Start Time Stop Time Status Last Admin Dose Admin Insulin Glargine (Lantus Solostar Pen) 10 units BID SC 08/12/17 21:00 09/11/17 20:59 08/16/17 09:01 10 UNITS Insulin Aspart (novoLOG ASPART) SLIDING SCALE G... ACHS SC 08/12/17 21:00 09/11/17 20:59 08/16/17 09:00 2 UNITS Aspirin (Ecotrin Tab) 81 mg DAILY PO 08/13/17 09:00 5/29/18 08:59 08/16/17 08:55 81 MG Finasteride (Proscar Tab) 5 mg DAILY PO 08/13/17 09:00 09/12/17 08:59 08/16/17 08:55 5 MG Gabapentin (Neurontin Cap) 200 mg HS PO 08/12/17 21:00 09/11/17 20:59 08/15/17 20:31 200 MG Levalbuterol (Xopenex 1.25MG/ 3ML Neb) 1.25 mg Q6H PRN INH 08/12/17 19:15 09/11/17 19:14 Metoprolol Succinate (Toprol Xl Tab) 12.5 mg DAILY PO 08/13/17 09:00 09/12/17 08:59 08/16/17 08:55 12.5 MG Pantoprazole Sodium (Protonix Tab) 40 mg DAILY PO 08/13/17 09:00 09/12/17 08:59 08/16/17 08:55 40 MG Senna (Senokot Tab) 17.2 mg UD PRN PO 08/12/17 19:15 09/11/17 19:14 Simvastatin (Zocor Tab) 20 mg HS PO 08/12/17 21:00 09/11/17 20:59 Future Hold 08/12/17 22:12 20 MG Tamsulosin HCl (Flomax Cap) 0.4 mg HS PO 08/12/17 21:00 09/11/17 20:59 08/15/17 20:31 0.4 MG Ondansetron HCl (Zofran Inj) 4 mg Q6H PRN IV 08/12/17 20:15 09/11/17 20:14 Acetaminophen (Tylenol Tab) 650 mg Q6 PRN PO 08/13/17 22:15 09/12/17 22:14 08/15/17 18:56 650 MG Ertapenem 500 mg/ Sodium Chloride 55 ml @ 110 mls/hr Q24H IV 08/14/17 11:30 08/24/17 11:29 08/15/17 12:01 110 MLS/HR Last 24 Hours Test 08/15/17 11:32 08/15/17 16:27 08/15/17 20:26 08/16/17 05:54 Bedside Glucose 161 mg/dl 162 mg/dl 167 mg/dl White Blood Count 6.27 K/uL Red Blood Count 3.38 M/uL Hemoglobin 9.9 g/dL Hematocrit 30.8 % Mean Corpuscular Volume 91.1 fL Mean Corpuscular Hemoglobin 29.3 pg Mean Corpuscular Hemoglobin Concent 32.1 g/dl Platelet Count 196 K/uL Mean Platelet Volume 8.8 fL Neutrophils (%) (Auto) 68.4 % Lymphocytes (%) (Auto) 16.6 % Monocytes (%) (Auto) 11.5 % Eosinophils (%) (Auto) 1.9 % Basophils (%) (Auto) 0.3 % Neutrophils # (Auto) 4.29 K/uL Lymphocytes # (Auto) 1.04 K/uL Monocytes # (Auto) 0.72 K/uL Eosinophils # (Auto) 0.12 K/uL Basophils # (Auto) 0.02 K/uL RDW Standard Deviation 50.5 fL RDW Coefficient of Variation 15.0 % Immature Granulocyte % (Auto) 1.3 % Immature Granulocyte # (Auto) 0.08 K/uL Sodium Level 145 mmol/L Potassium Level 4.8 mmol/L Chloride Level 113 mmol/L Carbon Dioxide Level 27 mmol/L Anion Gap 4.0 mmol/L Blood Urea Nitrogen 46 mg/dl Creatinine 3.02 mg/dl Est Creatinine Clear Calc Drug Dose 21.6 ml/min Estimated GFR () 21.1 Estimated GFR (Non- 18.2 BUN/Creatinine Ratio 15.3 Random Glucose 101 mg/dl Calcium Level 8.4 mg/dl Total Bilirubin 0.2 mg/dl Aspartate Amino Transf (AST/SGOT) 27 U/L Alanine Aminotransferase (ALT/SGPT) 25 U/L Alkaline Phosphatase 107 U/L Total Protein 6.6 gm/dl Albumin 2.5 gm/dl Globulin 4.1 gm/dl Albumin/Globulin Ratio 0.6 Test 08/16/17 07:28 Bedside Glucose 106 mg/dl Assessment & Plan 82-year-old male with a baseline chronic kidney disease 4 and baseline creatinine mid / low 2's/eGFR about 20, also CAD s/p stent and chronic systolic HF (EF 40%), AV block s/p pacer, DM, 02 dependent COPD, non small cell lung CA first dx 2010 and s/p 05/2017 XRT, SHANKAR, stones, HL, who had outpt cystoscopy w / prophlyactic abtx 24 hr prior to admission admitted 08/12 w/ ESBL K pniae UTI, encephalopathy. Baseline creatinine 2.6-2.8; baseline appears to have progressed some in 2018 to this level. GRANT on progressive CKD4, nonoliguric ATN in setting of ESBL complicated UTI; had also just prior to admission been restarted on furosemide per report -chemistries acceptable; minimal change in renal function so far; BP / volume status acceptable as is hgb -cont to hold diuretic; no need for IVF at this time -daily bmp -no acute indication for dialysis >>>PICC is suboptimal in this pt w/ advanced CKD 4; will discuss alternatives / options with Dr Zaidi Appreciate consult; will follow with you
[2017-08-16 11:02] VITALS: BP 147/66; PULSE 105; TEMP 36.8; O2SAT 95
[2017-08-16] MEDS: ERTAPENEM IV 500 MG in SODIUM CHLORIDE 0.9% 50 ML IV SCH (12:31)
[2017-08-16 15:09] VITALS: BP 132/69; PULSE 85; TEMP 36.4; O2SAT 96
--- NOTE | 2017-08-16 17:12 | Progress Note ---
Internal Med Progress Note Date of Service: August 16, 2017. Provider Documentation: SUBJECTIVE: Patient has ultrasound guider peripheral IV line placed. This is not a midline or PICC line. Patient denies acute pain or shortness of breath OBJECTIVE: Exam: General-no acute distress Eyes- EOMI Neck- no JVD Lungs- CTABL, no wheezing Heart- RRR Abdomen- truncal obesity, soft, nontender, + bowel sounds Extremities- no edema Neuro- awake and alert ASSESSMENT & PLAN: PROBABLE SEPSIS Met criteria for sepsis per current CMS definition. Probably source is urinary tract. Received empiric Rx with IV imipenem / cilastatin + daptomycin pending culture results. Urine culture growing Klebsiella pneumoniae (ESBL). Therapy changed to IV ertapenem by ID on 08/14/17 for 10 days total; alternative would be renal dosed levaquin as per previous patient's hospitalist, avoid quinolones because of relatively high QTc and history of delirium Patient has ultrasound guider peripheral IV line placed on 08/16/17 (This is not a midline or PICC line) The Ertapenem will be completed by 08/23/17 ALTERED MENTAL STATUS Probable encephalopathy secondary to infection. Resolved CKD IV / ACUTE KIDNEY INJURY -cont to hold diuretic; no need for IVF at this time -daily bmp -no acute indication for dialysis -PICC is suboptimal in this pt w/ advanced CKD 4 as per nephrology service CORONARY ARTERY DISEASE No anginal symptoms. Continue aspirin, metoprolol, statin. CHRONIC SYSTOLIC CHF History of chronic left ventricular systolic heart failure with LVEF of 40-45%. Had some dependent edema, but no CHF on chest x-ray in ED. Hold diuretics because of elevated creatinine. COPD / CHRONIC HYPOXIC RESPIRATORY FAILURE Pulmonary status appears to be stable. Continue O2 + PRN bronchodilators. LUNG CANCER Non-small cell carcinoma of right lung. Has been followed by [facility] [place] Pul[facility] Medicine. S/P radiation therapy. Outpatient follow-up with Pulmonary Medicine. DM TYPE 2 Usually fairly well-controlled. Hemoglobin A1c = 7.8 in clinic on 07/07/17. Hold oral agents during hospital stay. on Lantus and NovoLog LEFT THIGH PAIN Venous duplex negative for DVT. VTE PROPHYLAXIS SCDs Ambulate as tolerated RESUSCITATION STATUS Full code Patient's Bhavna [phone], Disposition: as per initial PT evaluation, patient may need short term physical rehabilitation Vital Signs: Date Time Temp Pulse Resp B/P (MAP) Pulse Ox O2 Delivery O2 Flow Rate FiO2 08/16/17 15:09 36.4 85 18 132/69 (90) 96 Room Air 08/16/17 11:02 36.8 105 20 147/66 (93) 95 08/16/17 11:00 Room Air 08/16/17 10:21 95 Room Air 08/16/17 10:04 36.4 70 18 98 2.0 08/16/17 08:30 Room Air 08/16/17 08:24 36.4 70 18 125/67 (86) 98 08/16/17 04:02 36.4 70 20 125/67 (86) 99 Nasal Cannula 2.0 08/16/17 04:00 Nasal Cannula 08/16/17 00:00 Nasal Cannula 08/15/17 20:11 99 Nasal Cannula 2.0 08/15/17 19:55 36.5 80 18 113/68 (83) 97 Nasal Cannula 2.0 Lab Results: Results Past 24 Hours Test 08/15/17 20:26 08/16/17 05:54 08/16/17 07:28 08/16/17 11:23 Range/Units Bedside Glucose 167 106 190 70-99 mg/dl White Blood Count 6.27 4.8-10.8 K/uL Red Blood Count 3.38 4.7-6.1 M/uL Hemoglobin 9.9 14.0-18.0 g/dL Hematocrit 30.8 42-52 % Mean Corpuscular Volume 91.1 80-100 fL Mean Corpuscular Hemoglobin 29.3 25-34 pg Mean Corpuscular Hemoglobin Concent 32.1 32-36 g/dl Platelet Count 196 130-400 K/uL Mean Platelet Volume 8.8 7.4-10.4 fL Neutrophils (%) (Auto) 68.4 % Lymphocytes (%) (Auto) 16.6 % Monocytes (%) (Auto) 11.5 % Eosinophils (%) (Auto) 1.9 % Basophils (%) (Auto) 0.3 % Neutrophils # (Auto) 4.29 1.4-6.5 K/uL Lymphocytes # (Auto) 1.04 1.2-3.4 K/uL Monocytes # (Auto) 0.72 0.11-0.59 K/uL Eosinophils # (Auto) 0.12 0-0.5 K/uL Basophils # (Auto) 0.02 0-0.2 K/uL RDW Standard Deviation 50.5 36.4-46.3 fL RDW Coefficient of Variation 15.0 11.5-14.5 % Immature Granulocyte % (Auto) 1.3 % Immature Granulocyte # (Auto) 0.08 0.00-0.02 K/uL Sodium Level 145 136-145 mmol/L Potassium Level 4.8 3.5-5.1 mmol/L Chloride Level 113 98-107 mmol/L Carbon Dioxide Level 27 21-32 mmol/L Anion Gap 4.0 3-11 mmol/L Blood Urea Nitrogen 46 7-18 mg/dl Creatinine 3.02 0.60-1.40 mg/dl Est Creatinine Clear Calc Drug Dose 21.6 ml/min Estimated GFR () 21.1 Estimated GFR (Non- 18.2 BUN/Creatinine Ratio 15.3 10-20 Random Glucose 101 70-99 mg/dl Calcium Level 8.4 8.5-10.1 mg/dl Total Bilirubin 0.2 0.2-1 mg/dl Aspartate Amino Transf (AST/SGOT) 27 15-37 U/L Alanine Aminotransferase (ALT/SGPT) 25 12-78 U/L Alkaline Phosphatase 107 45-117 U/L Total Protein 6.6 6.4-8.2 gm/dl Albumin 2.5 3.4-5.0 gm/dl Globulin 4.1 2.5-4.0 gm/dl Albumin/Globulin Ratio 0.6 0.9-2 Test 08/16/17 16:32 Range/Units Bedside Glucose 210 70-99 mg/dl
[2017-08-16] MEDS: GABAPENTIN 100 MG CAP PO SCH (21:03)
[2017-08-16] MEDS: TAMSULOSIN HCL 0.4 MG CAP PO SCH (21:03)
[2017-08-17] VITALS (7 sets, daily range): BP systolic 112–138; BP diastolic 69–77; PULSE 75–83; TEMP 36.1–36.5; O2SAT 96–99
[2017-08-17 05:42] LABS: BASO % 0.6 %; BASO ABS # 0.03 K/uL (0-0.2); EOS ABS # 0.11 K/uL (0-0.5); HEMATOCRIT 29.8 % (42-52); HEMOGLOBIN 9.3 g/dL (14.0-18.0); IG# 0.09 K/uL (0.00-0.02); LYMPH % 23.4 %; LYMPH ABS # 1.27 K/uL (1.2-3.4); MEAN CELL VOLUME 91.7 fL (80-100); MEAN CORPUSCULAR HEMOGLOBIN 28.6 pg (25-34); MEAN CORPUSCULAR HGB CONC 31.2 g/dl (32-36); MEAN PLATELET VOLUME 8.5 fL (7.4-10.4); MONO % 13.3 %; MONO ABS # 0.72 K/uL (0.11-0.59); PLATELET COUNT 206 K/uL (130-400); RED CELL DISTRIBUTION WIDTH CV 14.9 % (11.5-14.5); RED CELL DISTRIBUTION WIDTH SD 50.8 fL (36.4-46.3); WHITE BLOOD COUNT 5.42 K/uL (4.8-10.8)
[2017-08-17 06:12] LABS: ALBUMIN 2.5 gm/dl (3.4-5.0); CALCIUM 8.9 mg/dl (8.5-10.1); CREATININE 2.9 mg/dl (0.60-1.40); POTASSIUM 4.8 mmol/L (3.5-5.1); TOTAL PROTEIN 6.6 gm/dl (6.4-8.2)
[2017-08-17] MEDS: INSULIN GLARGINE SOLOSTAR 100 UNITS/ML 3 ML PEN SC SCH ×2 (08:19→21:36)
[2017-08-17] MEDS: INSULIN ASPART 100 UNITS/ML 3 ML PEN SC SCH ×4 (08:20→21:00)
[2017-08-17] MEDS: METOPROLOL SUCC 25MG EXT REL TAB PO SCH (08:22)
[2017-08-17] MEDS: FINASTERIDE 5 MG TAB PO SCH (08:22)
[2017-08-17] MEDS: PANTOprazole SOD 40 MG TAB PO SCH (08:22)
[2017-08-17] MEDS: ASPIRIN 81 MG ECTAB PO SCH (08:22)
[2017-08-17] MEDS: ERTAPENEM IV 500 MG in SODIUM CHLORIDE 0.9% 50 ML IV SCH (12:50)
--- NOTE | 2017-08-17 13:02 | Nephrology Progress Note ---
Nephrology Progress Note Date of Service: August 17, 2017. Subjective c/o marked fatigue, again of poor quality sleep d/t frequent assessment/ interruptions; denies pain, denies sob, denies n/v; moved out of tele; on 02 today Objective Date Time Temp Pulse Resp B/P (MAP) Pulse Ox O2 Delivery O2 Flow Rate FiO2 08/17/17 07:27 36.3 77 22 112/69 (83) 99 Nasal Cannula 2.0 08/17/17 00:45 Room Air 08/17/17 00:17 36.5 78 20 138/71 (93) 99 Nasal Cannula 2.0 08/16/17 21:00 Room Air 08/16/17 16:00 Room Air 08/16/17 15:09 36.4 85 18 132/69 (90) 96 Room Air 08/16/17 11:02 36.8 105 20 147/66 (93) 95 08/16/17 11:00 Room Air 08/16/17 10:21 95 Room Air 08/16/17 10:04 36.4 70 18 98 2.0 08/16/17 08:30 Room Air 08/16/17 08:24 36.4 70 18 125/67 (86) 98 Physical Exam: GENERAL: A& 0 x 3 but limited insight/ hx. on 2L NC today; sleeping when I enter room HEENT: slightly dry MM NECK: Supple. CARDIOVASCULAR: RRR; soft SM, distant HS; no edema CHEST: Bilaterally clear to auscultation w/ very diminished air entry GASTROINTESTINAL: Normal bowel sounds, soft, nontender. no barker EXTREMITIES: no edema; no c/c Neuro: ma, fluent speech Current Inpatient Medications Medications (Trade) Dose Ordered Sig/Tonia Route Start Time Stop Time Status Last Admin Dose Admin Insulin Glargine (Lantus Solostar Pen) 10 units BID SC 08/12/17 21:00 09/11/17 20:59 08/16/17 21:07 10 UNITS Insulin Aspart (novoLOG ASPART) SLIDING SCALE G... ACHS SC 08/12/17 21:00 09/11/17 20:59 08/16/17 21:08 1 UNITS Aspirin (Ecotrin Tab) 81 mg DAILY PO 08/13/17 09:00 09/12/17 08:59 08/16/17 08:55 81 MG Finasteride (Proscar Tab) 5 mg DAILY PO 08/13/17 09:00 09/12/17 08:59 08/16/17 08:55 5 MG Gabapentin (Neurontin Cap) 200 mg HS PO 08/12/17 21:00 09/11/17 20:59 08/16/17 21:03 200 MG Levalbuterol (Xopenex 1.25MG/ 3ML Neb) 1.25 mg Q6H PRN INH 08/12/17 19:15 09/11/17 19:14 Metoprolol Succinate (Toprol Xl Tab) 12.5 mg DAILY PO 08/13/17 09:00 09/12/17 08:59 08/16/17 08:55 12.5 MG Pantoprazole Sodium (Protonix Tab) 40 mg DAILY PO 08/13/17 09:00 09/12/17 08:59 08/16/17 08:55 40 MG Senna (Senokot Tab) 17.2 mg UD PRN PO 08/12/17 19:15 09/11/17 19:14 Simvastatin (Zocor Tab) 20 mg HS PO 08/12/17 21:00 09/11/17 20:59 Future Hold 08/12/17 22:12 20 MG Tamsulosin HCl (Flomax Cap) 0.4 mg HS PO 08/12/17 21:00 09/11/17 20:59 08/16/17 21:03 0.4 MG Ondansetron HCl (Zofran Inj) 4 mg Q6H PRN IV 08/12/17 20:15 09/11/17 20:14 Acetaminophen (Tylenol Tab) 650 mg Q6 PRN PO 08/13/17 22:15 09/12/17 22:14 08/15/17 18:56 650 MG Ertapenem 500 mg/ Sodium Chloride 55 ml @ 110 mls/hr Q24H IV 08/14/17 11:30 08/24/17 11:29 08/16/17 12:31 110 MLS/HR Last 24 Hours Test 08/16/17 11:23 08/16/17 16:32 08/16/17 20:32 08/17/17 05:19 Bedside Glucose 190 mg/dl 210 mg/dl 208 mg/dl White Blood Count 5.42 K/uL Red Blood Count 3.25 M/uL Hemoglobin 9.3 g/dL Hematocrit 29.8 % Mean Corpuscular Volume 91.7 fL Mean Corpuscular Hemoglobin 28.6 pg Mean Corpuscular Hemoglobin Concent 31.2 g/dl Platelet Count 206 K/uL Mean Platelet Volume 8.5 fL Neutrophils (%) (Auto) 59.0 % Lymphocytes (%) (Auto) 23.4 % Monocytes (%) (Auto) 13.3 % Eosinophils (%) (Auto) 2.0 % Basophils (%) (Auto) 0.6 % Neutrophils # (Auto) 3.20 K/uL Lymphocytes # (Auto) 1.27 K/uL Monocytes # (Auto) 0.72 K/uL Eosinophils # (Auto) 0.11 K/uL Basophils # (Auto) 0.03 K/uL RDW Standard Deviation 50.8 fL RDW Coefficient of Variation 14.9 % Immature Granulocyte % (Auto) 1.7 % Immature Granulocyte # (Auto) 0.09 K/uL Sodium Level 141 mmol/L Potassium Level 4.8 mmol/L Chloride Level 110 mmol/L Carbon Dioxide Level 26 mmol/L Anion Gap 5.0 mmol/L Blood Urea Nitrogen 45 mg/dl Creatinine 2.90 mg/dl Est Creatinine Clear Calc Drug Dose 22.5 ml/min Estimated GFR () 22.2 Estimated GFR (Non- 19.1 BUN/Creatinine Ratio 15.7 Random Glucose 98 mg/dl Calcium Level 8.9 mg/dl Total Bilirubin 0.2 mg/dl Aspartate Amino Transf (AST/SGOT) 21 U/L Alanine Aminotransferase (ALT/SGPT) 24 U/L Alkaline Phosphatase 110 U/L Total Protein 6.6 gm/dl Albumin 2.5 gm/dl Globulin 4.1 gm/dl Albumin/Globulin Ratio 0.6 Test 08/17/17 07:42 Bedside Glucose 118 mg/dl Assessment & Plan 82-year-old male with a baseline chronic kidney disease 4 and baseline creatinine mid / low 2's/eGFR about 20, also CAD s/p stent and chronic systolic HF (EF 40%), AV block s/p pacer, DM, 02 dependent COPD, non small cell lung CA first dx 2010 and s/p 05/2017 XRT, SHANKAR, stones, HL, who had outpt cystoscopy w / prophlyactic abtx 24 hr prior to admission admitted 08/12 w/ ESBL K pniae UTI, encephalopathy. Baseline creatinine 2.6-2.8; baseline appears to have progressed some in 2018 to this level. GRANT on progressive CKD4, nonoliguric ATN in setting of ESBL complicated UTI; had also just prior to admission been restarted on furosemide per report. Creatinine plateau'd past several days at about 3 -chemistries acceptable; minimal change in renal function so far; BP / volume status acceptable as is hgb -cont to hold diuretic; no need for IVF at this time -daily bmp -no acute indication for dialysis >>>recommend f/u in CKD clinic 2-4 wks after hospital d/c; recommend after d/c weekly bmp, cbc until seen in renal clinic >>>team efforts appreciated at avoiding picc in this pt Appreciate consult; will follow with you. care coordinated w/ Dr Zaidi
--- NOTE | 2017-08-17 13:34 | Progress Note ---
Subjective Date of Service: August 17, 2017. Subjective Pt evaluation today including: conversation w/ patient, physical exam, chart review, lab review pt resting comfortably, no complaints. no abd pain, no f/c. tolerating abx. awaiting placement for rehab, no n/v/d. all remaining ros reviewed and are negative. blood cultures remain negative Problem List Medical Problems: (1) Altered mental status Status: Acute (2) Altered mental status Status: Acute (3) Altered mental status Status: Acute (4) Altered mental status Status: Acute (5) Change in mental status Status: Acute (6) Confusion Status: Acute (7) Dehydration Status: Acute (8) Dehydration Status: Acute (9) Failure of outpatient treatment Status: Acute (10) Insomnia Status: Acute (11) Penile pain Status: Acute (12) TIA (transient ischemic attack) Status: Acute (13) UTI (urinary tract infection) Status: Acute (14) Weakness Status: Acute (15) Weakness Status: Acute Objective Vital Signs Date Time Temp Pulse Resp B/P (MAP) Pulse Ox O2 Delivery O2 Flow Rate FiO2 08/17/17 08:00 99 Nasal Cannula 2.0 08/17/17 07:27 36.3 77 22 112/69 (83) 99 Nasal Cannula 2.0 08/17/17 00:45 Room Air 08/17/17 00:17 36.5 78 20 138/71 (93) 99 Nasal Cannula 2.0 08/16/17 21:00 Room Air 08/16/17 16:00 Room Air 08/16/17 15:09 36.4 85 18 132/69 (90) 96 Room Air Physical Exam General Appearance: WD/WN, no apparent distress Eyes: normal inspection, EOMI Neck: supple Respiratory/Chest: lungs clear, normal breath sounds, no respiratory distress Cardiovascular: regular rate, rhythm Abdomen: non tender, soft Extremities: non-tender, no pedal edema Neurologic/Psychiatric: alert, oriented x 3 Skin: normal color Laboratory Results Item Value Date Time Blood Culture - Preliminary Resulted 08/12/17 1901 Blood NO GROWTH TO DATE. Urine Culture - Final Complete 08/12/17 1822 Urine,Catheterized Klebsiella Pneumoniae Esbl Blood Culture - Preliminary Resulted 08/12/17 1720 Blood NO GROWTH TO DATE. Last 24 Hours Test 08/16/17 16:32 08/16/17 20:32 08/17/17 05:19 08/17/17 07:42 Bedside Glucose 210 mg/dl 208 mg/dl 118 mg/dl White Blood Count 5.42 K/uL Red Blood Count 3.25 M/uL Hemoglobin 9.3 g/dL Hematocrit 29.8 % Mean Corpuscular Volume 91.7 fL Mean Corpuscular Hemoglobin 28.6 pg Mean Corpuscular Hemoglobin Concent 31.2 g/dl Platelet Count 206 K/uL Mean Platelet Volume 8.5 fL Neutrophils (%) (Auto) 59.0 % Lymphocytes (%) (Auto) 23.4 % Monocytes (%) (Auto) 13.3 % Eosinophils (%) (Auto) 2.0 % Basophils (%) (Auto) 0.6 % Neutrophils # (Auto) 3.20 K/uL Lymphocytes # (Auto) 1.27 K/uL Monocytes # (Auto) 0.72 K/uL Eosinophils # (Auto) 0.11 K/uL Basophils # (Auto) 0.03 K/uL RDW Standard Deviation 50.8 fL RDW Coefficient of Variation 14.9 % Immature Granulocyte % (Auto) 1.7 % Immature Granulocyte # (Auto) 0.09 K/uL Sodium Level 141 mmol/L Potassium Level 4.8 mmol/L Chloride Level 110 mmol/L Carbon Dioxide Level 26 mmol/L Anion Gap 5.0 mmol/L Blood Urea Nitrogen 45 mg/dl Creatinine 2.90 mg/dl Est Creatinine Clear Calc Drug Dose 22.5 ml/min Estimated GFR () 22.2 Estimated GFR (Non- 19.1 BUN/Creatinine Ratio 15.7 Random Glucose 98 mg/dl Calcium Level 8.9 mg/dl Total Bilirubin 0.2 mg/dl Aspartate Amino Transf (AST/SGOT) 21 U/L Alanine Aminotransferase (ALT/SGPT) 24 U/L Alkaline Phosphatase 110 U/L Total Protein 6.6 gm/dl Albumin 2.5 gm/dl Globulin 4.1 gm/dl Albumin/Globulin Ratio 0.6 Test 08/17/17 11:34 Bedside Glucose 180 mg/dl Assessment and Plan (1) UTI (urinary tract infection) Assessment & Plan: will change abx to ertapenem, follow blood cultures, negative to date. would give 10 days total. alternative would be renal dosed levaquin.
--- NOTE | 2017-08-17 18:11 | Progress Note ---
Internal Med Progress Note Date of Service: August 17, 2017. Provider Documentation: SUBJECTIVE: Patient denies acute pain or shortness of breath OBJECTIVE: Exam: General-no acute distress Eyes- EOMI Neck- no JVD Lungs- CTABL, no wheezing Heart- RRR Abdomen- truncal obesity, soft, nontender, + bowel sounds Extremities- no edema Neuro- awake and alert ASSESSMENT & PLAN: PROBABLE SEPSIS Met criteria for sepsis per current CMS definition. Probably source is urinary tract. Received empiric Rx with IV imipenem / cilastatin + daptomycin pending culture results. Urine culture growing Klebsiella pneumoniae (ESBL). Therapy changed to IV ertapenem by ID on 08/14/17 for 10 days total; alternative would be renal dosed levaquin as per previous patient's hospitalist, avoid quinolones because of relatively high QTc and history of delirium Patient has ultrasound guided peripheral IV line placed on 08/16/17 (This is not a midline or PICC line) The Ertapenem will be completed by 08/23/17 ALTERED MENTAL STATUS Probable encephalopathy secondary to infection. Resolved CKD IV / ACUTE KIDNEY INJURY cont to hold diuretic; no need for IVF at this time -no acute indication for dialysis -PICC is suboptimal in this pt w/ advanced CKD 4 as per nephrology service CORONARY ARTERY DISEASE No anginal symptoms. Continue aspirin, metoprolol, statin. CHRONIC SYSTOLIC CHF History of chronic left ventricular systolic heart failure with LVEF of 40-45%. Had some dependent edema, but no CHF on chest x-ray in ED. Hold diuretics because of elevated creatinine. COPD Pulmonary status stable - no problems on room air currently LUNG CANCER Non-small cell carcinoma of right lung. Has been followed by [facility] [place] Pulmonary Medicine. S/P radiation therapy. Outpatient follow-up with Pulmonary Medicine. DM TYPE 2 Usually fairly well-controlled. Hemoglobin A1c = 7.8 in clinic on 07/07/17. Hold oral agents during hospital stay. on Lantus and NovoLog LEFT THIGH PAIN Venous duplex negative for DVT. VTE PROPHYLAXIS SCDs Ambulate as tolerated (patient very sedentary) RESUSCITATION STATUS Full code Patient's Bhavna [phone], Disposition: awaiting approval for physical rehabilitation or SNF for completion of IV antibiotics Vital Signs: Date Time Temp Pulse Resp B/P (MAP) Pulse Ox O2 Delivery O2 Flow Rate FiO2 08/17/17 16:00 99 Room Air 08/17/17 15:05 36.4 83 20 123/77 (92) 96 Room Air 08/17/17 08:00 99 Nasal Cannula 2.0 08/17/17 07:27 36.3 77 22 112/69 (83) 99 Nasal Cannula 2.0 08/17/17 00:45 Room Air 08/17/17 00:17 36.5 78 20 138/71 (93) 99 Nasal Cannula 2.0 08/16/17 21:00 Room Air Lab Results: Results Past 24 Hours Test 08/16/17 20:32 08/17/17 05:19 08/17/17 07:42 08/17/17 11:34 Range/Units Bedside Glucose 208 118 180 70-99 mg/dl White Blood Count 5.42 4.8-10.8 K/uL Red Blood Count 3.25 4.7-6.1 M/uL Hemoglobin 9.3 14.0-18.0 g/dL Hematocrit 29.8 42-52 % Mean Corpuscular Volume 91.7 80-100 fL Mean Corpuscular Hemoglobin 28.6 25-34 pg Mean Corpuscular Hemoglobin Concent 31.2 32-36 g/dl Platelet Count 206 130-400 K/uL Mean Platelet Volume 8.5 7.4-10.4 fL Neutrophils (%) (Auto) 59.0 % Lymphocytes (%) (Auto) 23.4 % Monocytes (%) (Auto) 13.3 % Eosinophils (%) (Auto) 2.0 % Basophils (%) (Auto) 0.6 % Neutrophils # (Auto) 3.20 1.4-6.5 K/uL Lymphocytes # (Auto) 1.27 1.2-3.4 K/uL Monocytes # (Auto) 0.72 0.11-0.59 K/uL Eosinophils # (Auto) 0.11 0-0.5 K/uL Basophils # (Auto) 0.03 0-0.2 K/uL RDW Standard Deviation 50.8 36.4-46.3 fL RDW Coefficient of Variation 14.9 11.5-14.5 % Immature Granulocyte % (Auto) 1.7 % Immature Granulocyte # (Auto) 0.09 0.00-0.02 K/uL Sodium Level 141 136-145 mmol/L Potassium Level 4.8 3.5-5.1 mmol/L Chloride Level 110 98-107 mmol/L Carbon Dioxide Level 26 21-32 mmol/L Anion Gap 5.0 3-11 mmol/L Blood Urea Nitrogen 45 7-18 mg/dl Creatinine 2.90 0.60-1.40 mg/dl Est Creatinine Clear Calc Drug Dose 22.5 ml/min Estimated GFR () 22.2 Estimated GFR (Non- 19.1 BUN/Creatinine Ratio 15.7 10-20 Random Glucose 98 70-99 mg/dl Calcium Level 8.9 8.5-10.1 mg/dl Total Bilirubin 0.2 0.2-1 mg/dl Aspartate Amino Transf (AST/SGOT) 21 15-37 U/L Alanine Aminotransferase (ALT/SGPT) 24 12-78 U/L Alkaline Phosphatase 110 45-117 U/L Total Protein 6.6 6.4-8.2 gm/dl Albumin 2.5 3.4-5.0 gm/dl Globulin 4.1 2.5-4.0 gm/dl Albumin/Globulin Ratio 0.6 0.9-2 Test 08/17/17 16:33 Range/Units Bedside Glucose 232 70-99 mg/dl
[2017-08-17] MEDS: ACETAMINOPHEN 325 MG TAB PO PRN (18:50)
[2017-08-17] MEDS: TAMSULOSIN HCL 0.4 MG CAP PO SCH (21:33)
[2017-08-17] MEDS: GABAPENTIN 100 MG CAP PO SCH (21:33)
[2017-08-18 07:28] VITALS: BP 129/75; PULSE 72; TEMP 36.6; O2SAT 99
[2017-08-18 07:54] LABS: CALCIUM 8.4 mg/dl (8.5-10.1); CREATININE 2.66 mg/dl (0.60-1.40); POTASSIUM 4.6 mmol/L (3.5-5.1)
[2017-08-18 08:00] VITALS: O2SAT 99
[2017-08-18] MEDS: ASPIRIN 81 MG ECTAB PO SCH (09:01)
[2017-08-18] MEDS: METOPROLOL SUCC 25MG EXT REL TAB PO SCH (09:02)
[2017-08-18] MEDS: PANTOprazole SOD 40 MG TAB PO SCH (09:02)
[2017-08-18] MEDS: FINASTERIDE 5 MG TAB PO SCH (09:02)
[2017-08-18] MEDS: INSULIN ASPART 100 UNITS/ML 3 ML PEN SC SCH ×3 (09:05→18:04)
[2017-08-18] MEDS: INSULIN GLARGINE SOLOSTAR 100 UNITS/ML 3 ML PEN SC SCH (09:06)
[2017-08-18] MEDS: ERTAPENEM IV 500 MG in SODIUM CHLORIDE 0.9% 50 ML IV SCH (12:38)
[2017-08-18 14:51] VITALS: BP 133/72; PULSE 84; TEMP 36.5; O2SAT 99
[2017-08-18] MEDS ORDERED: INSDGIPEN SC (15:17)
[2017-08-18 15:24] VITALS: BP 133/72; PULSE 84; TEMP 36.5; O2SAT 99
--- NOTE | 2017-08-18 16:15 | Progress Note ---
Internal Med Progress Note Date of Service: August 18, 2017. Provider Documentation: SUBJECTIVE: Patient denies acute pain or shortness of breath OBJECTIVE: Exam: General-no acute distress Eyes- EOMI Neck- no JVD Lungs- CTABL, no wheezing Heart- RRR Abdomen- truncal obesity, soft, nontender, + bowel sounds Extremities- no edema Neuro- awake and alert ASSESSMENT & PLAN: Hospital Course and Discharge plan This is a 82 year old who met criteria for sepsis per current CMS definition on admission with source of sepsis to be ESBL UTI. Initially patient received empiric Rx with IV imipenem / cilastatin + daptomycin. Urine culture growing Klebsiella pneumoniae (ESBL). Therapy changed to IV ertapenem by ID on 08/14/17 for 10 days total. Patient has ultrasound guided peripheral IV line placed on 08/16/17 (This is not a midline or PICC line). The Ertapenem will be completed by 08/23/17 Initially patient had altered mental status, encephalopathy secondary to infection but this resolved Patient initially though to be oxygen dependent, but for much of this hospital stay, patient has been breathing on room air Patient had acute kidney injury on CKD stage IV, has been evaluated by nephrology service and kidney injury improved after IV fluids and holding Lasix. Also in the event that patient may need PICC line in the future, nephrology service deems that a PICC line is suboptimal because patient may in the future need dialysis if kidney disease progresses CORONARY ARTERY DISEASE No anginal symptoms. Continue aspirin, metoprolol, statin. CHRONIC SYSTOLIC CHF History of chronic left ventricular systolic heart failure with LVEF of 40-45%. Had some dependent edema, but no CHF on chest x-ray in ED. Home dose Lasix can be restarted upon discharge COPD Pulmonary status stable - no problems on room air currently LUNG CANCER Non-small cell carcinoma of right lung. Has been followed by [facility] [place] Pulmonary Medicine. S/P radiation therapy. Outpatient follow-up with Pulmonary Medicine. DM TYPE 2 Usually fairly well-controlled. Hemoglobin A1c = 7.8 in clinic on 07/07/17. Patient's diabetes medication regimen was glipizide at home. Glipizide was held and Insulin regimen in the hospital was as needed aspart and Glargine 10 units BID. Patient should continue to have glargine on discharge. Glipizide is not an ideal medication in an elderly patient but this can be re-assessed with primary care doctor LEFT THIGH PAIN Venous duplex negative for DVT. Discharge instructions Patient is to be discharged to [facility] and to complete the Ertapenem there until 08/23/17 for the ESBL UTI. Patient should be evaluated by primary care doctor for further medical needs including any follow ups to [facility] Pulmonary Medicine clinic Nephrology inpatient service recommends f/u with Nephrology clinic appointment on Monday September 18, 2017 at 1:[address] Burns at [address] , [place] [address] patient should have weekly basic metabolic panels until appointment to the Nephrology clinic Vital Signs: Date Time Temp Pulse Resp B/P (MAP) Pulse Ox O2 Delivery O2 Flow Rate FiO2 08/18/17 15:24 36.5 84 18 99 Nasal Cannula 08/18/17 14:51 36.5 84 18 133/72 (92) 99 Nasal Cannula 2.0 08/18/17 08:00 99 Nasal Cannula 2.0 08/18/17 07:28 36.6 72 20 129/75 (93) 99 08/18/17 00:04 Nasal Cannula 2.0 08/17/17 23:07 36.1 75 20 122/75 (91) 97 Nasal Cannula 2.0 08/17/17 20:00 99 Nasal Cannula 2.0 Lab Results: Results Past 24 Hours Test 08/17/17 16:33 08/17/17 21:05 08/18/17 07:11 08/18/17 07:42 Range/Units Bedside Glucose 232 150 116 70-99 mg/dl Sodium Level 145 136-145 mmol/L Potassium Level 4.6 3.5-5.1 mmol/L Chloride Level 113 98-107 mmol/L Carbon Dioxide Level 27 21-32 mmol/L Anion Gap 5.0 3-11 mmol/L Blood Urea Nitrogen 41 7-18 mg/dl Creatinine 2.66 0.60-1.40 mg/dl Est Creatinine Clear Calc Drug Dose 24.5 ml/min Estimated GFR () 24.6 Estimated GFR (Non- 21.2 BUN/Creatinine Ratio 15.4 10-20 Random Glucose 117 70-99 mg/dl Calcium Level 8.4 8.5-10.1 mg/dl Test 08/18/17 11:23 Range/Units Bedside Glucose 214 70-99 mg/dl
--- NOTE | 2017-08-18 16:21 | Discharge Instructions ---
Discharge Instructions Date of Service August 18, 2017. Admission Reason for Admission: AMS Discharge Discharge Diagnosis / Problem: Sepsis and altered mental status due to ESBL UTI , GRANT on CKD stage IV, DM Discharge Goals Goal(s): Improve function, Increase independence, Improve disease control Activity Recommendations Activity Limitations: per Instructions/Follow-up section Shower/Bathe: no limitations . Instructions / Follow-Up Instructions / Follow-Up Hospital Course and Discharge plan This is a 82 year old who met criteria for sepsis per current CMS definition on admission with source of sepsis to be ESBL UTI. Initially patient received empiric Rx with IV imipenem / cilastatin + daptomycin. Urine culture growing Klebsiella pneumoniae (ESBL). Therapy changed to IV ertapenem by ID on 08/14/17 for 10 days total. Patient has ultrasound guided peripheral IV line placed on 08/16/17 (This is not a midline or PICC line). The Ertapenem will be completed by 08/23/17 Initially patient had altered mental status, encephalopathy secondary to infection but this resolved Patient initially though to be oxygen dependent, but for much of this hospital stay, patient has been breathing on room air Patient had acute kidney injury on CKD stage IV, has been evaluated by nephrology service and kidney injury improved after IV fluids and holding Lasix. Also in the event that patient may need PICC line in the future, nephrology service deems that a PICC line is suboptimal because patient may in the future need dialysis if kidney disease progresses CORONARY ARTERY DISEASE No anginal symptoms. Continue aspirin, metoprolol, statin. CHRONIC SYSTOLIC CHF History of chronic left ventricular systolic heart failure with LVEF of 40-45%. Had some dependent edema, but no CHF on chest x-ray in ED. Home dose Lasix can be restarted upon discharge COPD Pulmonary status stable - no problems on room air currently LUNG CANCER Non-small cell carcinoma of right lung. Has been [place] [facility] [place]. S/P radiation therapy. Outpatient follow-up with Pulmonary Medicine. DM TYPE 2 Usually fairly well-controlled. Hemoglobin A1c = 7.8 in clinic on 07/07/17. Patient's diabetes medication regimen was glipizide at home. Glipizide was held and Insulin regimen in the hospital was as needed aspart and Glargine 10 units BID. Patient should continue to have glargine on discharge. Glipizide is not an ideal medication in an elderly patient but this can be re-assessed with primary care doctor LEFT THIGH PAIN Venous duplex negative for DVT. Discharge instructions Patient is to be discharged to [facility] and to complete the Ertapenem there until 08/23/17 for the ESBL UTI. Patient should be evaluated by primary care doctor for further medical needs including any follow ups to [facility] [place] [facility] clinic Nephrology inpatient service recommends f/u with Nephrology clinic appointment on Monday September 18, 2017 at 1:[address] Burns at [address] , [place] [address] patient should have weekly basic metabolic panels until appointment to the Nephrology clinic Current Hospital Diet Patient's current hospital diet: Diabetes Type 2 Diet, AHA Diet (Heart Healthy) Discharge Diet Recommended Diet: AHA Diet (Heart Healthy), Diabetes Type 2 Diet Pending Studies Studies pending at discharge: no Laboratory Results 08/17/17 05:19 Red Blood Count 3.25, Mean Corpuscular Volume 91.7, Mean Corpuscular Hemoglobin 28.6, Mean Corpuscular Hemoglobin Concent 31.2, Mean Platelet Volume 8.5, Neutrophils (%) (Auto) 59.0, Lymphocytes (%) (Auto) 23.4, Monocytes (%) (Auto) 13.3, Eosinophils (%) (Auto) 2.0, Basophils (%) (Auto) 0.6, Neutrophils # (Auto ) 3.20, Lymphocytes # (Auto) 1.27, Monocytes # (Auto) 0.72, Eosinophils # (Auto ) 0.11, Basophils # (Auto) 0.03 08/18/17 07:11 Test 08/12/17 17:20 08/12/17 17:53 08/12/17 18:22 08/13/17 05:33 Red Blood Cell Morphology Unremarkable Prothrombin Time 10.4 SECONDS (9.0-12.0) Prothromb Time International Ratio 1.0 (0.9-1.1) Activated Partial Thromboplast Time 26.8 SECONDS (21.0-31.0) Partial Thromboplastin Ratio 1.0 Direct Bilirubin 0.1 mg/dl (0-0.2) Troponin I < 0.015 ng/ml (0-0.045) Bedside Lactic Acid Venous 1.44 mmol/L (0.90-1.70) Urine Color YELLOW Urine Appearance TURBID (CLEAR) Urine pH 6.5 (4.5-7.5) Urine Specific [place] 1.015 (1.000-1.030) Urine Protein 3+ (NEG) Urine Glucose (UA) 2+ (NEG) Urine Ketones NEG (NEG) Urine Occult Blood 3+ (NEG) Urine Nitrite NEG (NEG) Urine Bilirubin NEG (NEG) Urine Urobilinogen NEG (NEG) Urine Leukocyte Esterase LARGE (NEG) Urine WBC (Auto) >30 /hpf (0-5) Urine RBC (Auto) >30 /hpf (0-4) Urine Hyaline Casts (Auto) 1-5 /lpf (0-5) Urine Epithelial Cells (Auto) >30 /lpf (0-5) Urine Bacteria (Auto) 1+ (NEG) Urine Pathogenic Casts /lpf (0) Procalcitonin 0.66 ng/ml (0-0.5) Test 08/17/17 05:19 08/18/17 07:11 08/18/17 11:23 White Blood Count 5.42 K/uL (4.8-10.8) Red Blood Count 3.25 M/uL (4.7-6.1) Hemoglobin 9.3 g/dL (14.0-18.0) Hematocrit 29.8 % (42-52) Mean Corpuscular Volume 91.7 fL (80-100) Mean Corpuscular Hemoglobin 28.6 pg (25-34) Mean Corpuscular Hemoglobin Concent 31.2 g/dl (32-36) Platelet Count 206 K/uL (130-400) Mean Platelet Volume 8.5 fL (7.4-10.4) Neutrophils (%) (Auto) 59.0 % Lymphocytes (%) (Auto) 23.4 % Monocytes (%) (Auto) 13.3 % Eosinophils (%) (Auto) 2.0 % Basophils (%) (Auto) 0.6 % Neutrophils # (Auto) 3.20 K/uL (1.4-6.5) Lymphocytes # (Auto) 1.27 K/uL (1.2-3.4) Monocytes # (Auto) 0.72 K/uL (0.11-0.59) Eosinophils # (Auto) 0.11 K/uL (0-0.5) Basophils # (Auto) 0.03 K/uL (0-0.2) RDW Standard Deviation 50.8 fL (36.4-46.3) RDW Coefficient of Variation 14.9 % (11.5-14.5) Immature Granulocyte % (Auto) 1.7 % Immature Granulocyte # (Auto) 0.09 K/uL (0.00-0.02) Total Bilirubin 0.2 mg/dl (0.2-1) Aspartate Amino Transf (AST/SGOT) 21 U/L (15-37) Alanine Aminotransferase (ALT/SGPT) 24 U/L (12-78) Alkaline Phosphatase 110 U/L (45-117) Total Protein 6.6 gm/dl (6.4-8.2) Albumin 2.5 gm/dl (3.4-5.0) Globulin 4.1 gm/dl (2.5-4.0) Albumin/Globulin Ratio 0.6 (0.9-2) Anion Gap 5.0 mmol/L (3-11) Est Creatinine Clear Calc Drug Dose 24.5 ml/min Estimated GFR () 24.6 Estimated GFR (Non- 21.2 BUN/Creatinine Ratio 15.4 (10-20) Calcium Level 8.4 mg/dl (8.5-10.1) Bedside Glucose 214 mg/dl (70-99) Date/Time Source Procedure Growth Status 08/12/17 19:01 Blood Blood Culture - Final NO GROWTH Complete 08/12/17 18:22 Urine,Catheterized Urine Culture - Final Klebsiella Pneumoniae Esbl Complete Hemoglobin A1c Test 07/25/17 07:37 Range/Units Estimated Average Glucose 203 mg/dl Hemoglobin A1c 8.7 H 4.5-5.6 % Medical Emergencies . Who to Call and When: Medical Emergencies: If at any time you feel your situation is an emergency, please call 911 immediately. . Non-Emergent Contact Non-Emergency issues call your: Primary Care Provider, Parking Worker Call Non-Emergent contact if: you have any medication questions . . "Provider Documentation" section prepared by Ammon Zaidi. .
--- NOTE | 2017-08-18 16:22 | Discharge Summary ---
Discharge Summary Date of Service August 18, 2017. Discharge Summary Admission Date: Aug 12, 2017 at 18:54 Discharge Date: August 18, 2017 Principal Diagnosis: Sepsis and altered mental status due to ESBL UTI, GRANT on CKD stage IV, DM Medication Reconciliation New Medications: Insulin Glargine (Lantus Solostar) 100 Unit/Ml Inj 10 UNITS SC BID for 30 Days, #6 ML Continued Medications: Aspirin (Aspirin Ec) 81 Mg Tab 81 MG PO DAILY Cholecalciferol (D3-1000) 1,000 Unit Cap 2000 INTER.UNIT PO DAILY Cyanocobalamin (Vitamin B12) 1,000 Mcg Tab 1000 MCG PO DAILY Finasteride (Finasteride) 5 Mg Tab 5 MG PO DAILY Furosemide (Lasix) 20 Mg Tab 20 MG PO DAILY, TAB Gabapentin (Gabapentin) 100 Mg Cap 200 MG PO HS Ipratropium [place] (Atrovent 0.02% Soln) 2.5 Ml Nebu 2.5 ML NEB QID Levalbuterol (Levalbuterol HCl) 1.25 Mg/3 Ml Nebu 1 VIAL INH TID PRN for Shortness of Breath Metoprolol Succinate (Metoprolol Succinate ER) 25 Mg Tabcr 12.5 MG PO DAILY Pantoprazole (Pantoprazole Sodium) 40 Mg Tab 40 MG PO DAILY Senna (Senokot) 8.6 Mg Tab 2 TAB PO UD PRN for Constipation, TAB Simvastatin (Simvastatin) 20 Mg Tab 20 MG PO HS Tamsulosin HCl (Tamsulosin HCl) 0.4 Mg Cap 0.4 MG PO HS Discontinued Medications: Fexofenadine Hcl (Randa Allergy) 180 Mg Tab 180 MG PO DAILY PRN for Allergy Symptoms, TAB Fluticasone Propionate (Nasal) (Flonase Allergy Relief) 50 Mcg/Act Spr 2 SPRAYS [place]TON DAILY PRN for Nasal Congestion Glipizide Xl (Glucotrol Xl) 5 Mg Tab 5 MG PO DAILY Pentosan Polysulfate Sodium (Elmiron) 100 Mg Cap 100 MG PO BID, CAP Admission Information HPI (per Admitting provider): 82-year-old male followed by Dr. Guerra. History of coronary artery disease, congestive heart failure, oxygen dependent COPD, non-small cell carcinoma of the lung, and other problems noted below. Cystoscopy performed by Dr. Rodney about 24 hours prior to admission. Received prophylactic antibiotics before and after the procedure. This morning the patient experienced nausea and vomiting after eating breakfast. No hematemesis. Seem to have a fever, although temperature was not taken. Also has some chills. Experiencing bilateral flank pain. Chronic urinary incontinence. No dysuria. Family noticed intermittent confusion throughout the day. noticed some blood on his adult diapers. . Physical Exam (per Admitting): CONSTITUTIONAL vital signs as noted above well-developed, well-nourished, no acute distress EYES conjunctivae clear; lids normal pupils equal and reactive to light EARS, NOSE, MOUTH AND THROAT external inspection of ears and nose unremarkable hard of hearing poor dentition oropharynx clear NECK no masses; trachea midline thyroid normal RESPIRATORY normal respiratory effort; no respiratory distress diffuse mild wheezing CARDIOVASCULAR regular rate and rhythm I / systolic murmur at base no gallop, rub appreciated carotid arteries 2/2 abdominal aorta not palpable pedal pulses diminished capillary refill toes < 2 seconds trace pretibial edema GASTROINTESTINAL normal bowel sounds, soft, mild diffuse tenderness; no palpable masses no hepatomegaly; no splenomegaly LYMPHATIC no cervical adenopathy MUSCULOSKELETAL no cyanosis no calf tenderness motor strength extremities grossly intact SKIN no rash warm and dry NEUROLOGIC PERRL, EOMI, no facial palsy, no dysarthria, tongue midline patellar DTR's / PSYCHIATRIC oriented to person, place, month, year, but not day of the week mood and affect appropriate . Hospital Course Hospital Course and Discharge plan This is a 82 year old who met criteria for sepsis per current CMS definition on admission with source of sepsis to be ESBL UTI. Initially patient received empiric Rx with IV imipenem / cilastatin + daptomycin. Urine culture growing Klebsiella pneumoniae (ESBL). Therapy changed to IV ertapenem by ID on 08/14/17 for 10 days total. Patient has ultrasound guided peripheral IV line placed on 08/16/17 (This is not a midline or PICC line). The Ertapenem will be completed by 08/23/17 Initially patient had altered mental status, encephalopathy secondary to infection but this resolved Patient initially though to be oxygen dependent, but for much of this hospital stay, patient has been breathing on room air Patient had acute kidney injury on CKD stage IV, has been evaluated by nephrology service and kidney injury improved after IV fluids and holding Lasix. Also in the event that patient may need PICC line in the future, nephrology service deems that a PICC line is suboptimal because patient may in the future need dialysis if kidney disease progresses CORONARY ARTERY DISEASE No anginal symptoms. Continue aspirin, metoprolol, statin. CHRONIC SYSTOLIC CHF History of chronic left ventricular systolic heart failure with LVEF of 40-45%. Had some dependent edema, but no CHF on chest x-ray in ED. Home dose Lasix can be restarted upon discharge COPD Pulmonary status stable - no problems on room air currently LUNG CANCER Non-small cell carcinoma of right lung. Has been followed by [facility] Pulmonary Medicine. S/P radiation therapy. Outpatient follow-up with Pulmonary Medicine. DM TYPE 2 Usually fairly well-controlled. Hemoglobin A1c = 7.8 in clinic on 07/07/17. Patient's diabetes medication regimen was glipizide at home. Glipizide was held and Insulin regimen in the hospital was as needed aspart and Glargine 10 units BID. Patient should continue to have glargine on discharge. Glipizide is not an ideal medication in an elderly patient but this can be re-assessed with primary care doctor LEFT THIGH PAIN Venous duplex negative for DVT. Discharge instructions Patient is to be discharged to [facility] and to complete the Ertapenem there until 08/23/17 for the ESBL UTI. Patient should be evaluated by primary care doctor for further medical needs including any follow ups to [facility] [place] Pulmonary Medicine clinic Nephrology inpatient service recommends f/u with Nephrology clinic appointment on Monday September 18, 2017 at 1:[address] Burns at [address] , [place] [address] patient should have weekly basic metabolic panels until appointment to the Nephrology clinic Total time spent on discharge = 40 minutes This includes examination of the patient, discharge planning, medication reconciliation, and communication with other providers. Discharge Instructions see above
== END 2017-08-18 18:15 | DRG 871 ==
LOC: EDBD 17:07 → C.EDC 17:09 → C.2T 18:54 → EDBEDREQ 19:01 → ENRESERV 19:07 → C.2T 08-14 19:50 → ENRESERV 08-16 09:28 → C.4E 08-16 10:41
PROVIDERS: ADMIT Hospitalist; ATTEND Hospitalist
DX: A41.9 Sepsis, unspecified organism (principal); G93.40 Encephalopathy, unspecified; I50.22 Chronic systolic (congestive) heart failure; I44.2 Atrioventricular block, complete; N17.9 Acute kidney failure, unspecified; J96.11 Chronic respiratory failure with hypoxia; N18.4 Chronic kidney disease, stage 4 (severe); N39.0 Urinary tract infection, site not specified; K21.9 Gastro-esophageal reflux disease without esophagitis; E78.5 Hyperlipidemia, unspecified; F32.9 Major depressive disorder, single episode, unspecified; J44.9 Chronic obstructive pulmonary disease, unspecified; N40.0 Benign prostatic hyperplasia without lower urinary tract symptoms; E11.22 Type 2 diabetes mellitus with diabetic chronic kidney disease; I25.10 Atherosclerotic heart disease of native coronary artery without angina pectoris; I25.5 Ischemic cardiomyopathy; E86.0 Dehydration; M79.652 Pain in left thigh; B96.1 Klebsiella pneumoniae [K. pneumoniae] as the cause of diseases classified elsewhere; K22.2 Esophageal obstruction; Z96.651 Presence of right artificial knee joint; G47.33 Obstructive sleep apnea (adult) (pediatric); Z87.440 Personal history of urinary (tract) infections; Z98.49 Cataract extraction status, unspecified eye; Z87.891 Personal history of nicotine dependence; Z99.81 Dependence on supplemental oxygen; Z79.82 Long term (current) use of aspirin; Z85.118 Personal history of other malignant neoplasm of bronchus and lung; Z85.828 Personal history of other malignant neoplasm of skin; Z90.49 Acquired absence of other specified parts of digestive tract; Z87.442 Personal history of urinary calculi; Z83.3 Family history of diabetes mellitus; Z82.49 Family history of ischemic heart disease and other diseases of the circulatory system